=== PATIENT | male | born 1945 | race Caucasian/White ===

== ENCOUNTER 2016-10-03 21:25 | Emergency (ER) | payer MEDICARE, BC ==
[2016-10-03 22:02] VITALS: RESP 18
[2016-10-03] MEDS ORDERED: LIDOCAINE/EPINEPHR/TETRACAINE 5 ML BOTTLE TOPICAL ONE (23:00)
--- NOTE | 2016-10-03 23:02 | ED ---
Recheck HPI - General Chief Complaint: Recheck/Abnormal Lab/Rx Stated Complaint: Bleeding Time Seen by Provider: 10/03/16 22:07 Source: patient, RN notes reviewed Mode of arrival: EMS Limitations: no limitations - History of Present Illness Initial Comments: Patient is a 70-year-old male since emergency room for evaluation of postop bleeding. Patient states that he had basal cell carcinoma removal by Dr. Huffman at 1 PM this afternoon. Patient states she was instructed to not do any strenuous physical activity but he did not listen and used his lawnmower. Patient states that the wound area began to significantly bleed and he could not get it to stop. patient denies any significant pain. Patient states he takes a baby aspirin per day. Patient denies being on any other blood thinners. Patient denies any other symptoms or complaints. - Related Data Home Medications Medication Instructions Recorded Confirmed Albuterol Sulfate [Proair Hfa] 1 - 2 puff INHALATION RT-Q6H PRN 10/03/16 Aspirin [Adult Low Dose Aspirin EC] 81 mg PO DAILY 10/03/16 10/03/16 Atorvastatin [Lipitor] 10 mg PO DAILY 10/03/16 10/03/16 Calcium Carbonate/Vitamin D3 1 tab PO DAILY 10/03/16 10/03/16 [Calcium 600-Vit D3 800 Tab] Doxazosin Mesylate [Cardura] 8 mg PO BID 10/03/16 10/03/16 Empagliflozin [Jardiance] 25 mg PO DAILY 10/03/16 10/03/16 Finasteride [Proscar] 5 mg PO DAILY 10/03/16 10/03/16 Glimepiride [Amaryl] 4 mg PO BID 10/03/16 10/03/16 Montelukast [Singulair] 10 mg PO DAILY 10/03/16 10/03/16 Valsartan/Hydrochlorothiazide 1 each PO DAILY 10/03/16 10/03/16 [Valsartan-Hctz 320-12.5 mg Tab] Vitamin E 400 unit PO DAILY 10/03/16 10/03/16 amLODIPine [Norvasc] 5 mg PO BID 10/03/16 10/03/16 metFORMIN HCL [Metformin HCl] 1,000 mg PO BID 10/03/16 10/03/16 sitaGLIPtin [Januvia] 100 mg PO DAILY 10/03/16 10/03/16 Allergies Allergy/AdvReac Type Severity Reaction Status Date / Time No Known Allergies Allergy Verified 10/03/16 22:15 Review of Systems ROS Statement: Those systems with pertinent positive or pertinent negative responses have been documented in the HPI. ROS Other: All systems not noted in ROS Statement are negative. Past Medical History Past Medical History: Diabetes Mellitus, Hyperlipidemia, Hypertension History of Any Multi-Drug Resistant Organisms: MRSA MDRO Source:: left leg 1961 Additional Past Surgical History / Comment(s): left leg Past Psychological History: Unable to Obtain Smoking Status: Former smoker Past Alcohol Use History: Rare Past Drug Use History: None Reported General Exam - General Exam Comments Initial Comments: sitting in exam room, no distress. Limitations: no limitations General appearance: alert, in no apparent distress Head exam: Present: atraumatic, normocephalic, normal inspection Eye exam: Present: normal appearance ENT exam: Present: normal exam Neck exam: Present: normal inspection Respiratory exam: Present: normal lung sounds bilaterally. Absent: respiratory distress Cardiovascular Exam: Present: regular rate, normal rhythm, normal heart sounds Extremities exam: Present: normal inspection Back exam: Present: normal inspection Neurological exam: Present: alert, oriented X3, CN II-XII intact, normal gait Psychiatric exam: Present: normal affect, normal mood Skin exam: Present: warm, dry, other (5 cm linear incision inferior to the right clavicle. One portion of the incision bleeding.) Course Vital Signs 10/03/16 10/04/16 21:55 00:18 Temperature 98.5 F 97.7 F Pulse Rate 61 89 Respiratory 18 18 Rate Blood Pressure 204/84 144/69 O2 Sat by Pulse 96 97 Oximetry Medical Decision Making - Medical Decision Making Patient is a 70-year-old male since emergency room for evaluation of postop incisional bleeding. Area of bleeding was cauterized with silver nitrate stick. Patient is no longer bleeding. Dressings reapplied. Advised patient to follow-up with Dr. Huffman. Return parameters discussed. Case discussed Dr. Holguin. Disposition Clinical Impression: Postoperative bleeding from incision Disposition: HOME SELF-CARE Condition: Good Instructions: Postoperative Bleeding (ED) Additional Instructions: Refrain from any strenuous physical activity. Please follow-up with Dr. Huffman. If any new symptom arises or symptoms worsen, return to ER as soon as possible. Referrals: Jose Raul Parish MD [Primary Care Provider] - 1-2 days Keya Huffman MD [STAFF PHYSICIAN] - 1-2 days Time of Disposition: 00:09
[2016-10-03] MEDS ORDERED: HYDROcodone/APAP 5-325MG 1 EACH TAB PO STA (23:15)
[2016-10-04 00:19] VITALS: BP 144/69; PULSE 89; TEMP 97.7
== END 2016-10-04 00:19 | disposition home or self-care (01) ==
LOC: EC 21:25
DX: L76.22 Postprocedural hemorrhage of skin and subcutaneous tissue following other procedure (principal); E11.9 Type 2 diabetes mellitus without complications; E78.5 Hyperlipidemia, unspecified; I10 Essential (primary) hypertension; Z87.891 Personal history of nicotine dependence; Z79.82 Long term (current) use of aspirin; Z79.84 Long term (current) use of oral hypoglycemic drugs; Z79.899 Other long term (current) drug therapy; Z87.2 Personal history of diseases of the skin and subcutaneous tissue; Z98.890 Other specified postprocedural states; Y83.8 Other surgical procedures as the cause of abnormal reaction of the patient, or of later complication, without mention of misadventure at the time of the procedure
CPT/HCPCS: 99283

== ENCOUNTER 2017-11-17 06:25 | Inpatient (IN) | payer MEDICARE, BC ==
[2017-11-17] MEDS ORDERED: ASPIRIN 81 MG PO STA (06:33)
--- NOTE | 2017-11-17 06:45 | ED ---
Chest Pain HPI - General Chief Complaint: Chest Pain Stated Complaint: chest pain Time Seen by Provider: 11/17/17 06:33 Source: patient, RN notes reviewed Mode of arrival: ambulatory Limitations: no limitations - History of Present Illness Initial Comments: This is a 72-year-old male presents emergency Department with chief complaint of chest pain or shortness of breath. 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 Patient states his Lasix for 1 week secondary to his symptoms along with monitoring of his lower extremities. He states that there is no current swelling that it seems to help but states that he comes emergency Department today because he had increased urgency breath. Patient does take medications for hypertension, hyperlipidemia diabetes. Patient states she's had no prior heart attacks. Patient denies any recent URI symptoms has had a slight cough which is only minimal associated shortness of breath. Patient denies known fever or chills. - Related Data Home Medications Medication Instructions Recorded Confirmed Albuterol Sulfate [Proair Hfa] 1 - 2 puff INHALATION RT-Q6H PRN 10/03/16 Aspirin [Adult Low Dose Aspirin EC] 81 mg PO DAILY 10/03/16 10/03/16 Atorvastatin [Lipitor] 10 mg PO DAILY 10/03/16 10/03/16 Calcium Carbonate/Vitamin D3 1 tab PO DAILY 10/03/16 10/03/16 [Calcium 600-Vit D3 800 Tab] Doxazosin Mesylate [Cardura] 8 mg PO BID 10/03/16 10/03/16 Empagliflozin [Jardiance] 25 mg PO DAILY 10/03/16 10/03/16 Finasteride [Proscar] 5 mg PO DAILY 10/03/16 10/03/16 Glimepiride [Amaryl] 4 mg PO BID 10/03/16 10/03/16 Montelukast [Singulair] 10 mg PO DAILY 10/03/16 10/03/16 Valsartan/Hydrochlorothiazide 1 each PO DAILY 10/03/16 10/03/16 [Valsartan-Hctz 320-12.5 mg Tab] Vitamin E 400 unit PO DAILY 10/03/16 10/03/16 amLODIPine [Norvasc] 5 mg PO BID 10/03/16 10/03/16 metFORMIN HCL [Metformin HCl] 1,000 mg PO BID 10/03/16 10/03/16 sitaGLIPtin [Januvia] 100 mg PO DAILY 10/03/16 10/03/16 Allergies Allergy/AdvReac Type Severity Reaction Status Date / Time No Known Allergies Allergy Verified 11/17/17 06:32 Review of Systems ROS Statement: Those systems with pertinent positive or pertinent negative responses have been documented in the HPI. ROS Other: All systems not noted in ROS Statement are negative. EKG Findings - EKG Comments: EKG Findings:: EKG performed at 6:37 sinus rhythm with PVC complexes, rate of 68 TN 164 QRS 114 QT/QTC 408/433 Past Medical History Past Medical History: Diabetes Mellitus, Hyperlipidemia, Hypertension History of Any Multi-Drug Resistant Organisms: MRSA MDRO Source:: left leg 1961 Additional Past Surgical History / Comment(s): left leg Past Psychological History: No Psychological Hx Reported Smoking Status: Former smoker Past Alcohol Use History: Rare Past Drug Use History: None Reported General Exam Limitations: no limitations General appearance: alert, in no apparent distress Head exam: Present: atraumatic, normocephalic, normal inspection Neck exam: Present: normal inspection, full ROM. Absent: tenderness, meningismus, lymphadenopathy Respiratory exam: Present: normal lung sounds bilaterally. Absent: respiratory distress, wheezes, rales, rhonchi, stridor Cardiovascular Exam: Present: regular rate, normal rhythm, systolic murmur. Absent: normal heart sounds, diastolic murmur, rubs, gallop, clicks Skin exam: Present: warm, dry, intact, normal color. Absent: rash Course Vital Signs 11/17/17 11/17/17 11/17/17 06:28 06:40 07:35 Temperature 98.4 F Pulse Rate 60 69 58 L Respiratory 18 16 18 Rate Blood Pressure 162/76 152/75 O2 Sat by Pulse 97 95 Oximetry 11/17/17 08:20 Temperature Pulse Rate 59 L Respiratory 16 Rate Blood Pressure 153/92 O2 Sat by Pulse 96 Oximetry Chest Pain MDM - MDM 72-year-old male presented for chest pain shortness of breath. Patient had lab work chest x-ray and CT there is no evidence of PE. Patient's troponin is elevated will be started on heparin patient will admitted to service with consult to cardiology. Disposition Clinical Impression: Chest pain, Elevated troponin, Dyspnea Disposition: ADMITTED IP TO THIS HOSP Condition: Stable Referrals: Jose Raul Parish MD [Primary Care Provider] - 1-2 days
[2017-11-17 07:12] LABS: ALT 72 U/L (21-72); AST 25 U/L (17-59); Albumin 3.7 g/dL (3.5-5.0); Alkaline Phosphatase 111 U/L (38-126); Anion Gap 8 mmol/L; Blood Urea Nitrogen 15 mg/dL (9-20); Calcium 9.4 mg/dL (8.4-10.2); Carbon Dioxide 24 mmol/L (22-30); Chloride 107 mmol/L (98-107); Glucose 252 mg/dL (74-99); Magnesium 1.5 mg/dL (1.6-2.3); Potassium 4.1 mmol/L (3.5-5.1); Sodium 139 mmol/L (137-145); Total Bilirubin 0.9 mg/dL (0.2-1.3); Total Protein 6.1 g/dL (6.3-8.2)
[2017-11-17 07:13] LABS: Basophils % (A) 0 %; Eosinophils # (A) 0.6 k/uL (0-0.7); Eosinophils % (A) 8 %; HCT 41.1 % (39.0-53.0); Lymphocytes # (A) 1.1 k/uL (1.0-4.8); Lymphocytes % (A) 14 %; MCH 30.9 pg (25.0-35.0); MCV 90.9 fL (80.0-100.0); Mean Platelet Volume 8.4; Monocytes # (A) 0.5 k/uL (0-1.0); Monocytes % (A) 7 %; Neutrophils # (A) 5.7 k/uL (1.3-7.7); Neutrophils % (A) 70 %; Platelet Count 152 k/uL (150-450); RBC 4.52 m/uL (4.30-5.90); RDW 13.7 % (11.5-15.5); WBC 8.2 k/uL (3.8-10.6)
[2017-11-17 07:15] LABS: INR 1.1 (<1.2)
[2017-11-17 07:16] LABS: Partial Thromboplastin Time 24.7 sec (22.0-30.0); Prothrombin Time 10.7 sec (9.0-12.0)
--- NOTE | 2017-11-17 07:24 | XR ---
EXAMINATION TYPE: XR chest 2V DATE OF EXAM: 11/17/2017 COMPARISON: None HISTORY: 72-year-old male with chest pain and shortness of breath TECHNIQUE: AP and lateral views FINDINGS: Rightward patient rotation alters the normal cardiac and mediastinal contours. Heart borderline enlar ged. Diffuse interstitial and vascular prominence. Patchy posterior basilar opacity on the lateral vi ew. No significant pleural effusion. IMPRESSION: 1. Rotated exam. 2. Interstitial prominence and borderline heart size. Correlate to exclude mild pulmonary vascular co ngestion. 3. Some patchy posterior basilar atelectasis on the lateral view could represent atelectasis or mild infiltrate.
[2017-11-17 07:38] LABS: D-Dimer 0.79 mg/L FEU (<0.60)
[2017-11-17 08:03] LABS: Creatine Kinase MB 2.5 ng/mL (0.0-2.4); Troponin I 0.051 ng/mL (0.000-0.034)
--- NOTE | 2017-11-17 08:27 | CT ---
CT CHEST FOR PULMONARY EMBOLISM. EXAMINATION TYPE: CT chest angio for PE DATE OF EXAM: 11/17/2017 INDICATION: Chest pain CT DLP: 367.70 mGycm, Automated exposure control for dose reduction was used. CONTRAST: Patient injected with 100 ml mL of Isovue 370. COMPARISON: None TECHNIQUE: CT of the chest is performed on a spiral scan at 2 mm thick sections. Study is performed with intravenous contrast timed for evaluation for pulmonary embolism. This will limit additional po rtions of the evaluation. 3-D MIP images reconstructed by the technologist are reviewed on the compu ter in the coronal and sagittal planes. FINDINGS: No persistent filling defects are evident to suggest an acute pulmonary embolism. No mediastinal or hilar adenopathy enlarged by CT criteria is evident. The ascending aorta diameter at the level of the main pulmonary artery is 3.7 cm. The main pulmonary artery diameter at the bifur cation is 3.3 cm. Some scattered groundglass opacities are within the lung dill. Some minimal pulmonary edema could b e considered. Infectious pneumonitis could be considered. Minimal bilateral pleural effusions are pre sent. Some minimal compressive atelectasis within the dependent portions of the lung bases are presen t. Limited CT section through the upper abdomen are unremarkable. IMPRESSIONS: 1. No acute pulmonary embolism. 2. Minimal bilateral pleural effusions. 3. Minimal groundglass opacities which could reflect pneumonitis from infection or minimal edema.
[2017-11-17] MEDS ORDERED: HEPARIN SODIUM,PORCINE 5,000 UNIT/ML 1 ML VIAL IV ONE (08:34)
[2017-11-17] MEDS ORDERED: NITROGLYCERIN SL TABS 0.4 MG TAB SUBLINGUAL PRN ×2 (08:34→12:19)
[2017-11-17] MEDS: HEPARIN SOD,PORK IN 0.45% NACL 25,000 UNIT in 0.45% NACL 1 500ML.BAG IV SCH (09:01)
[2017-11-17] MEDS: SODIUM CHLORIDE 0.9% 500 ML IV SCH (09:03)
[2017-11-17] MEDS ORDERED: FUROSEMIDE 40 MG TAB PO SCH (10:00)
[2017-11-17 10:08] VITALS: BMI 30.1
--- NOTE | 2017-11-17 11:52 | ECHOF ---
Referral Reason:chest pain MEASUREMENTS -------- HEIGHT: 177.8 cm WEIGHT: 95.3 kg BP: 153/92 RVIDd: 3.3 cm (< 3.3) IVSd: 1.4 cm (0.6 - 1.1) LVIDd: 6.2 cm (3.9 - 5.3) LVPWd: 1.4 cm (0.6 - 1.1) IVSs: 1.8 cm LVIDs: 4.0 cm LVPWs: 2.2 cm LA Diam: 4.4 cm (2.7 - 3.8) LAESV Index (A-L): 31.89 ml/m Ao Diam: 3.2 cm (2.0 - 3.7) AV Cusp: 1.4 cm (1.5 - 2.6) MV EXCURSION: 22.126 mm (> 18.000) MV EF SLOPE: 157 mm/s (70 - 150) EPSS: 1.7 cm MV E Benny: 1.12 m/s MV DecT: 162 ms MV A Benny: 0.56 m/s MV E/A Ratio: 2.00 AV maxP.52 mmHg AV meanP.44 mmHg AR PHT: 539 ms RAP: 5.00 mmHg RVSP: 30.62 mmHg FINDINGS -------- Sinus rhythm. This was a technically adequate study. The left ventricle is mildly dilated. There is moderate concentric left ventricular hypertrophy. Overall left ventricular systolic function is low-normal with, an EF between 50 - 55 %. The right ventricle is mildly enlarged. LA is midly dilated 29-33ml/m2. The right atrium is normal in size. There is moderate to severe aortic valve sclerosis. There is mild aortic regurgitation. There is moderate aortic stenosis present. Peak/mean gradient across the Aortic Valve is 53.52mmHg / 31.44mm Hg. The mitral valve leaflets are mildly thickened. Mild mitral annular calcification present. Mild m itral regurgitation is present. Mild tricuspid regurgitation present. Right ventricular systolic pressure is normal at < 35 mmHg. The pulmonic valve was not well visualized. The aortic root size is normal. Normal inferior vena cava with normal inspiratory collapse consistent with estimated right atrial pre ssure of 5 mmHg. The inferior vena cava is mildly dilated. There is no pericardial effusion. CONCLUSIONS -------- 1. Sinus rhythm. 2. This was a technically adequate study. 3. The left ventricle is mildly dilated. 4. There is moderate concentric left ventricular hypertrophy. 5. Overall left ventricular systolic function is low-normal with, an EF between 50 - 55 %. 6. The right ventricle is mildly enlarged. 7. LA is midly dilated 29-33ml/m2. 8. The right atrium is normal in size. 9. There is moderate to severe aortic valve sclerosis. 10. There is mild aortic regurgitation. 11. There is moderate aortic stenosis present. 12. Peak/mean gradient across the Aortic Valve is 53.52mmHg / 31.44mmHg. 13. The mitral valve leaflets are mildly thickened. 14. Mild mitral annular calcification present. 15. Mild mitral regurgitation is present. 16. Mild tricuspid regurgitation present. 17. Right ventricular systolic pressure is normal at < 35 mmHg. 18. The pulmonic valve was not well visualized. 19. The aortic root size is normal. 20. Normal inferior vena cava with normal inspiratory collapse consistent with estimated right atrial pressure of 5 mmHg. 21. The inferior vena cava is mildly dilated. 22. There is no pericardial effusion. WAREHOUSE RECEIVING SUPERVISOR: Mary Frey RDCS
[2017-11-17 11:54] LABS: Glucose,Whole Blood 156 mg/dL (75-99)
[2017-11-17] MEDS: FAMOTIDINE 20 MG TAB PO SCH (12:00)
[2017-11-17] MEDS: DOXAZOSIN 4 MG TAB PO SCH ×2 (12:00→20:47)
[2017-11-17] MEDS: CARVEDILOL 6.25 MG TAB PO SCH ×2 (12:00→20:44)
[2017-11-17] MEDS: amLODIPine 5 MG TAB PO SCH ×2 (12:00→20:46)
[2017-11-17] MEDS: VALSARTAN 160 MG TAB PO SCH (12:01)
[2017-11-17] MEDS: MONTELUKAST 10 MG TAB PO SCH (12:01)
[2017-11-17] MEDS: GLIMEPIRIDE 4 MG TAB PO SCH ×2 (12:01→20:47)
[2017-11-17] MEDS: HYDROCHLOROTHIAZIDE 12.5 MG CAP PO SCH (12:01)
[2017-11-17] MEDS: INSULIN ASPART 100 UNIT/ML 1 ML 10 ML VIAL SQ SCH ×3 (12:05→21:06)
[2017-11-17] MEDS ORDERED: SODIUM CHLORIDE 0.9% 1,000 ML in EMPTY BAG 1 BAG IV ONE (12:19)
[2017-11-17] MEDS ORDERED: ALPRAZolam 0.25 MG TAB PO PRN (12:19)
[2017-11-17] MEDS ORDERED: ALPRAZolam 0.5 MG TAB PO PRN (12:19)
[2017-11-17] MEDS ORDERED: ATORVASTATIN 80 MG TAB PO STA (12:19)
[2017-11-17] MEDS ORDERED: ASPIRIN 325 MG TAB PO STA (12:19)
--- NOTE | 2017-11-17 12:30 | P.HPIM ---
History of Present Illness H&P Date: 11/17/17 Chief Complaint: Chest pain with dyspnea on exertion This is a 72-year-old male one of my patient with a previous medical history significant for hypertension and hypertensive cardiovascular disease, hyperlipidemia, diabetes mellitus type 2, was recently diagnosed with aortic stenosis, and he was seen in consultation by Dr. Cárdenas and was supposed to go for left heart catheterization for evaluation of the gradient of the aortic valve, patient was seen in my office last week with increased swelling in both lower extremities and with effort angina that has been progressively getting worse over the last few weeks, at that time laboratory evaluation were done his d-dimer was negative as well as troponin and his BNP was elevated, patient was started on Lasix 40 mg Friday and Friday and his swelling got a lot better however he he continues to have significant dyspnea on exertion as well as effort angina with activity even minimal activities so he came to the emergency department at [facility] today after he woke up in the morning with increased chest pain going to the bathroom his EKG showed normal sinus rhythm with nonspecific T-wave changes, cardiac enzymes are negative however because of the presentation he was started on heparin drip, he was maintained on carvedilol as well as losartan and Lasix and he was admitted to the hospital for left heart catheterization for further evaluation of his coronary anatomy as well as the gradient across the aortic valve, patient had an echocardiogram that showed ejection fraction of 50-55% with moderate aortic stenosis and severe aortic sclerosis with mild aortic regurgitation. Review of Systems Constitutional: Reports fatigue, Reports weakness, Denies chronic headaches Eyes: denies blurred vision, denies bulging eye, denies decreased vision, denies diplopia Ears: bilateral: decreased hearing Ears, nose, mouth and throat: Denies dysphagia, Denies neck lump, Denies sore throat, Denies vertigo Cardiovascular: Reports chest pain, Reports decreased exercise tolerance, Reports dyspnea on exertion, Reports shortness of breath, Denies lightheadedness , Denies rapid heart beat, Denies syncope Respiratory: Denies congestion, Denies cough, Denies cough with sputum, Denies hemoptysis, Denies home oxygen, Denies sleep apnea, Denies snoring, Denies wheezing Gastrointestinal: Denies abdominal pain, Denies BRBPR, Denies heartburn, Denies melena, Denies nausea, Denies vomiting Genitourinary: Reports nocturia, Denies discharge, Denies dysuria Musculoskeletal: Denies atrophy, Denies fractures, Denies low back pain, Denies neck stiffness, Denies redness of joints Musculoskeletal: absent: ankle pain, ankle stiffness, ankle swelling, elbow pain , elbow stiffness, elbow swelling, foot pain, foot stiffness, foot swelling, hand pain, hand stiffness, hand swelling, hip pain, hip stiffness, hip swelling , knee pain, knee stiffness, knee swelling, shoulder pain, shoulder stiffness, shoulder swelling, wrist pain, wrist stiffness, wrist swelling Integumentary: Denies pruritus, Denies rash Neurological: Denies numbness, Denies weakness Psychiatric: Denies anxiety, Denies depression Endocrine: Denies fatigue, Denies weight change Past Medical History Past Medical History: Asthma, Diabetes Mellitus, Hyperlipidemia, Hypertension, Musculoskeletal Disorder, Osteoarthritis (OA), Prostate Disorder History of Any Multi-Drug Resistant Organisms: MRSA MDRO Source:: left leg 1961 Additional Past Surgical History / Comment(s): left leg, right breast tumor Past Psychological History: No Psychological Hx Reported Smoking Status: Former smoker (Patient used to smoke about a pack every day since was 16 and he quit 25 years ago.) Past Alcohol Use History: Rare Past Drug Use History: None Reported - Past Family History Mother Family Medical History: Cancer (Mother at age 70 from congestive heart failure and she had a history of melanoma as well as renal cancer.), Congestive Heart Failure (CHF) Father Family Medical History: Cancer (Father at age of 90 from old age and he had a history of melanoma.) Sister(s) Family Medical History: AFIB (Patient has 3 sisters one of them with obesity and atrial fibrillation.) Brother(s) Family Medical History: No Reported History (Patient has a younger brother no major medical problems except hypertension.) Daughter(s) Family Medical History: No Reported History (Patient has one daughter with anxiety and os arthritis.) Son(s) Family Medical History: No Reported History (Patient had one son who from motor vehicle accident.) Medications and Allergies Home Medications Medication Instructions Recorded Confirmed Type Aspirin [Adult Low Dose Aspirin EC] 81 mg PO HS 10/03/16 11/17/17 History Atorvastatin [Lipitor] 10 mg PO DAILY 10/03/16 11/17/17 History Calcium Carbonate/Vitamin D3 1 tab PO HS 10/03/16 11/17/17 History [Calcium 600-Vit D3 800 Tab] Doxazosin Mesylate [Cardura] 8 mg PO BID 10/03/16 11/17/17 History Finasteride [Proscar] 5 mg PO HS 10/03/16 11/17/17 History Glimepiride [Amaryl] 4 mg PO BID 10/03/16 11/17/17 History Montelukast [Singulair] 10 mg PO DAILY 10/03/16 11/17/17 History Valsartan/Hydrochlorothiazide 1 tab PO DAILY 10/03/16 11/17/17 History [Valsartan-Hctz 320-12.5 mg Tab] Vitamin E 400 unit PO HS 10/03/16 11/17/17 History amLODIPine [Norvasc] 5 mg PO BID 10/03/16 11/17/17 History metFORMIN HCL [Metformin HCl] 1,000 mg PO BID 10/03/16 11/17/17 History Carvedilol [Coreg] 6.25 mg PO BID 11/17/17 11/17/17 History Fexofenadine/Pseudoephedrine 1 tab PO BID PRN 11/17/17 11/17/17 History [Lyudmila-D 12 Hour Tablet] Furosemide [Lasix] 40 mg PO MOWEFR 11/17/17 11/17/17 History Mometasone/Formoterol [Dulera 100 2 puff INHALATION RT-BID PRN 11/17/17 History Mcg/5 Mcg Inhaler] Allergies Allergy/AdvReac Type Severity Reaction Status Date / Time No Known Allergies Allergy Verified 11/17/17 08:41 Physical Exam Vitals: Vital Signs Temp Pulse Resp BP Pulse Ox 11/17/17 09:11 97.8 F 55 L 18 162/81 96 11/17/17 08:20 59 L 16 153/92 96 11/17/17 07:35 58 L 18 152/75 95 11/17/17 06:40 69 16 11/17/17 06:28 98.4 F 60 18 162/76 97 Intake and Output 11/16/17 11/17/17 11/17/17 22:59 06:59 14:59 Other: Weight 95.254 kg - Constitutional General appearance: average body habitus, mild distress - EENT Eyes: anicteric sclerae, EOMI, PERRLA, no ptosis, no scleral icterus, normal appearance ENT: NA/AT, normal oropharynx, no thrush, no tonsillar exudates Ears: bilateral: normal - Neck Neck: no lymphadenopathy, normal ROM, no rigidity, no stridor, no thyromegaly Carotids: bilateral: upstroke delayed Thyroid: bilateral: normal size - Respiratory Respiratory: bilateral: diminished, negative: dullness, rales, rhonchi, wheezing , prolonged expiration - Cardiovascular Rhythm: regular Heart sounds: normal: S1, S2 Abnormal Heart Sounds: systolic murmur (Systolic ejection murmur 3/6 located in the right upper sternal border radiating to the neck), no S3 Gallop - Gastrointestinal General gastrointestinal: normal bowel sounds, soft, no splenomegaly, no tenderness, no umbilical hernia, no ventral hernia - Genitourinary Male genitourinary: enlarged prostate - Integumentary Integumentary: normal, normal turgor - Neurologic Neurologic: CNII-XII intact - Musculoskeletal Musculoskeletal: gait normal, generalized weakness - Psychiatric Psychiatric: A&O x's 3, appropriate affect, intact judgment & insight Results CBC & Chem 7: 11/17/17 06:48 11/17/17 06:48 Labs: Abnormal Lab Results - Last 24 Hours (Table) 11/17/17 11/17/17 11/17/17 Range/Units 06:48 06:48 06:48 D-Dimer 0.79 H (<0.60) mg/L FEU Glucose 252 H (74-99) mg/dL Magnesium 1.5 L (1.6-2.3) mg/dL CK-MB (CK-2) 2.5 H* (0.0-2.4) ng/mL Troponin I 0.051 H* (0.000-0.034) ng/mL Total Protein 6.1 L (6.3-8.2) g/dL Thrombosis Risk Factor Assmnt - DVT/VTE Prophylaxis DVT/VTE Prophylaxis: Pharmacologic Prophylaxis ordered, Mechanical Prophylaxis ordered Assessment and Plan Assessment: Assessment and plan: 1. Effort angina with dyspnea on exertion is related to aortic valve stenosis with possible CAD. Heparin drip, aspirin 325 mg orally once every day, nitroglycerin paste 1 inch every 8 hours, continue Coreg 6.25 mg orally twice every day, monitor cardiac enzymes 3 every 8 hours, cardiology consultation, for left heart catheterization tomorrow morning. 2. Diabetes mellitus type 2. Discontinue patient metformin continue with consistent carbohydrate diet, continue patient on glimepiride 4 mg orally twice every day, BGM before each meal and bedtime. 3. Hypertension and hypertensive cardiovascular disease. Continue losartan 100 /12.5 mg orally once every day, Coreg 6.25 mg orally twice every day and amlodipine 10 mg orally once every day. 4. Chronic diastolic heart failure. Continue Lasix 40 mg Friday and Friday, Coreg 6.25 mg orally twice every day and losartan 100/12.5 mg orally once every day. 5. Hyperlipidemia. Continue with Lipitor. 6. Enlarged prostate continue patient on Doxazosin 8 mg orally twice every day and finasteride 5 mg orally once every day 7. ALLERGIC rhinitis/asthma. Continue Singulair 10 mg at bedtime as well as Ventolin inhaler. 8. Osteoarthritis. Clinically stable. 9. DVT prophylaxis. Continue heparin drip. 10. GI prophylaxis. Continue patient on PPI. 11. Admit to inpatient. Estimated length of stay 2 midnights.
[2017-11-17 13:04] LABS: Creatine Kinase MB 2.1 ng/mL (0.0-2.4)
[2017-11-17 13:07] LABS: Troponin I 0.039 ng/mL (0.000-0.034)
--- NOTE | 2017-11-17 13:17 | CONS ---
CONSULTATION Mr. Pereira is a 72-year-old male with known history of diabetes, hypertension, hyperlipidemia, and known history of aortic valve disease who for the last 3 weeks has been complaining of progressive symptoms of dyspnea, exertional, increasing in intensity with some chest tightness. He was seen by Dr. Parish and diuretics were added to his regimen, but he started to complain of worsening symptoms and came into the emergency room subsequently admitted. The patient had moderate aortic stenosis with a mean gradient of 35 mmHg and a peak of 58 mmHg with preserved systolic function. He has no prior history of obstructive lung disease or congestive heart failure. His coronary risk factors are remarkable for hypertension, hyperlipidemia, and diabetes mellitus. MEDICATION: His medications at home included metformin, amlodipine 5 mg twice a day, valsartan HCTZ 320/12.5 mg daily, Singulair 10 mg daily, Amaryl 4 mg twice a day, Lasix 40 mg daily, Proscar 5 mg daily, doxazosin, Coreg 6.25 mg twice a day, Lipitor 10 mg daily and aspirin once a day. REVIEW OF SYSTEMS: RESPIRATORY SYSTEM: He has dyspnea on exertion and cough. No wheezing. GI SYSTEM: No recent GI bleed. No peptic ulcer disease. SYSTEM: No dysuria or hematuria. NERVOUS SYSTEM: No stroke or seizure. PHYSICAL EXAMINATION: A 72-year-old male, alert, oriented, in no apparent distress. Blood pressure running in the 150s to 160s with the heart rate in the 50s. HEAD: Normocephalic. EYES: Sclerae anicteric. NECK: Good carotid upstroke with transmitted murmur. LUNGS: Clear to auscultation. HEART: Regular rate and rhythm, S1, S2 with systolic ejection murmur 3/6 mid to late peaking. No diastolic murmur. No rub. ABDOMEN: Soft, nontender. Positive bowel sounds. No organomegaly. EXTREMITIES: No edema. LAB DATA: BUN and creatinine 15 and 0.88. Troponin 0.051. NT proBNP of 1117. Hemoglobin of 14. Chest x-ray shows mild congestion. EKG reveals sinus mechanism with normal axis and intervals, left ventricular hypertrophy and rare PVCs. CT angiogram of the chest revealed no evidence of pulmonary embolism with small bilateral pleural effusion. IMPRESSION: 1. Progressive symptoms of dyspnea and chest discomfort with minimal elevation of troponin, could be consistent with non ST-segment elevation myocardial infarction. 2. At least, moderate aortic stenosis. 3. Hypertension. 4. Hyperlipidemia. 5. Diabetes mellitus. RECOMMENDATION: We will continue on the present medical regimen. I have recommended proceeding with coronary angiography to assess his status and guide his treatment. I will review the results of his echocardiogram and depending on the results of testing, further recommendation will be made. Thank you for this consult. We will follow with you. MELBA / PATRICK: [id number] /
[2017-11-17 16:48] LABS: Glucose,Whole Blood 255 mg/dL (75-99)
[2017-11-17 20:09] LABS: Creatine Kinase MB 1.5 ng/mL (0.0-2.4); Troponin I 0.032 ng/mL (0.000-0.034)
[2017-11-17] MEDS: SYMBICORT 80-4.5 MCG INHALER INHALATION PRN (20:34)
[2017-11-17] MEDS: ASPIRIN 81 MG PO SCH (20:46)
[2017-11-17] MEDS: FINASTERIDE 5 MG TAB PO SCH (20:47)
[2017-11-17] MEDS: ATORVASTATIN 40 MG TAB PO SCH (20:47)
[2017-11-17] MEDS ORDERED: ATORVASTATIN 10 MG TAB PO SCH (21:00)
[2017-11-17 21:05] LABS: Glucose,Whole Blood 177 mg/dL (75-99)
[2017-11-18] MEDS: HEPARIN SOD,PORK IN 0.45% NACL 25,000 UNIT in 0.45% NACL 1 500ML.BAG IV SCH (02:22)
[2017-11-18 05:16] LABS: Appearance,Urine Clear (Clear); Bilirubin,Urine Negative (Negative); Blood,Urine Negative (Negative); Color,Urine Light Yellow; Glucose,Urine (UA) Negative (Negative); Ketones,Urine Negative (Negative); Leukocyte Esterase,Urine Negative (Negative); Nitrite,Urine Negative (Negative); Protein,Urine Negative (Negative); Urobilinogen,Urine <2.0 mg/dL (<2.0)
[2017-11-18 06:06] LABS: Glucose,Whole Blood 170 mg/dL (75-99)
[2017-11-18] MEDS: FAMOTIDINE 20 MG TAB PO SCH (06:45)
[2017-11-18] MEDS: CARVEDILOL 6.25 MG TAB PO SCH ×2 (06:45→21:17)
[2017-11-18] MEDS: amLODIPine 5 MG TAB PO SCH ×2 (06:45→21:17)
[2017-11-18] MEDS: DOXAZOSIN 4 MG TAB PO SCH ×2 (06:45→21:17)
[2017-11-18] MEDS: HYDROCHLOROTHIAZIDE 12.5 MG CAP PO SCH (06:46)
[2017-11-18] MEDS: MONTELUKAST 10 MG TAB PO SCH (06:46)
[2017-11-18] MEDS: VALSARTAN 160 MG TAB PO SCH (06:47)
[2017-11-18 07:41] LABS: Basophils # (A) 0.1 k/uL (0-0.2); Basophils % (A) 1 %; Eosinophils # (A) 0.7 k/uL (0-0.7); Eosinophils % (A) 10 %; HCT 39.3 % (39.0-53.0); HGB 13.3 gm/dL (13.0-17.5); Lymphocytes # (A) 1.3 k/uL (1.0-4.8); Lymphocytes % (A) 19 %; MCH 31.2 pg (25.0-35.0); MCHC 33.9 g/dL (31.0-37.0); MCV 92.1 fL (80.0-100.0); Monocytes # (A) 0.5 k/uL (0-1.0); Monocytes % (A) 7 %; Neutrophils # (A) 4.1 k/uL (1.3-7.7); Neutrophils % (A) 60 %; Platelet Count 144 k/uL (150-450); RBC 4.26 m/uL (4.30-5.90); RDW 13.7 % (11.5-15.5); WBC 6.8 k/uL (3.8-10.6)
[2017-11-18 08:06] LABS: ALT 63 U/L (21-72); AST 22 U/L (17-59); Albumin 3.5 g/dL (3.5-5.0); Alkaline Phosphatase 101 U/L (38-126); Anion Gap 7 mmol/L; Blood Urea Nitrogen 16 mg/dL (9-20); Carbon Dioxide 24 mmol/L (22-30); Chloride 108 mmol/L (98-107); Cholesterol 130 mg/dL (<200); Glucose 149 mg/dL (74-99); HDL Cholesterol 39 mg/dL (40-60); LDL Cholesterol,Calculated 58 mg/dL (0-99); Potassium 4.2 mmol/L (3.5-5.1); Sodium 139 mmol/L (137-145); Total Bilirubin 0.6 mg/dL (0.2-1.3); Total Protein 5.8 g/dL (6.3-8.2); Triglycerides 163 mg/dL (<150)
[2017-11-18] MEDS ORDERED: ASPIRIN 325 MG TAB PO STA (08:10)
[2017-11-18] MEDS: SYMBICORT 80-4.5 MCG INHALER INHALATION PRN (08:40)
[2017-11-18] MEDS ORDERED: ASPIRIN 325 MG TAB PO SCH (09:00)
[2017-11-18] MEDS ORDERED: diphenhydrAMINE 50 MG/ML 1 ML VIAL IVP ONE ×2 (10:40→10:44)
[2017-11-18] MEDS ORDERED: fentaNYL (PF) 50 MCG/ML 2 ML AMP IVP ONE ×2 (10:40→10:43)
[2017-11-18] MEDS: INSULIN ASPART 100 UNIT/ML 1 ML 10 ML VIAL SQ SCH ×4 (10:41→21:29)
[2017-11-18] MEDS: SODIUM CHLORIDE 0.9% 500 ML IV SCH (10:41)
[2017-11-18] MEDS ORDERED: LIDOCAINE 1% INJ 10MG/ML (20 ML MDV) SQ ONE ×2 (10:42→10:45)
[2017-11-18] MEDS ORDERED: VERAPAMIL SYRINGE (5 MG/10 ML) IVP ONE (10:42)
[2017-11-18] MEDS ORDERED: IOPAMIDOL-370 125ML BTL INJ ONE (11:29)
[2017-11-18 11:31] LABS: O2 Sat Blood Gas 67.2 %
[2017-11-18] MEDS ORDERED: RX INFO: IV CONTRAST WAS GIVEN 1 EACH MISC MISCELLANE PRN (11:31)
[2017-11-18] MEDS ORDERED: IV FLUID CONTINUATION 1,000 ML IV ONE (11:32)
[2017-11-18 11:33] LABS: O2 Sat Blood Gas 64.3 %
[2017-11-18 11:35] LABS: O2 Sat Blood Gas 94.4 %
[2017-11-18] MEDS ORDERED: SODIUM CHLORIDE 0.9% 1,000 ML IV SCH (11:45)
[2017-11-18] MEDS: GLIMEPIRIDE 4 MG TAB PO SCH ×2 (12:24→21:17)
[2017-11-18 12:26] LABS: Glucose,Whole Blood 142 mg/dL (75-99)
--- NOTE | 2017-11-18 13:26 | CC ---
CARDIAC CATHETERIZATION REPORT Mr. Pereira is a 72-year-old male with a known history of hypertension, hyperlipidemia, diabetes mellitus who has a history of aortic stenosis of moderate degree. He has been asymptomatic until recently when he started to complain of dyspnea on exertion and chest discomfort. He came into the emergency room with signs of heart failure and mild elevation of the troponin. In view of that, recommendation was made regarding cardiac catheterization. The procedure as well as the risks and complications were discussed with the patient who is in full understanding and agreement. PROCEDURE: Patient was brought to the collaborative physician in a fasting semi-sedated state after receiving fentanyl Benadryl and achieving moderate conscious sedated state. Using Xylocaine anesthesia in the Seldinger technique, a 6[place] sheath was introduced in the right radial artery. Using a micropuncture catheter the IV catheter in the right brachial was exchanged with a 6-[place] sheath. Following that, right heart catheterization was performed using [place] catheter multiple pressure and samples were obtained cardiac output by thermodilution was calculated. Following that a selective right and left coronary angiography performed using 5-[place] 3.5 bend right and left Gerald catheter. Multiple views of the coronary artery including hemiaxial views were obtained. Attempts to cross the aortic valve were unsuccessful. Subsequently, a 6-[place]izen [place] tight pigtail catheter was introduced in the ascending aorta and MIHIR view of the ascending aorta was performed. Following that, catheter and sheaths were removed. Hemostasis was obtained with deployment of a TR band and compression of the right brachial area. The patient received 5000 units of intravenous heparin and intra-arterial verapamil. There was no immediate complication. FINDINGS: HEMODYNAMICS: Pulmonary artery systolic pressure of 50, diastolic of 20 with a mean of 30 mmHg. Pulmonary capillary wedge pressure A-wave of 30, V-wave of 30 with a mean cough of 24 mmHg. Right ventricle systolic pressure of 50 with an end-diastolic of 12. Right atrium A-wave of 14, V-wave of 15 with a mean of 10 mmHg. Pulmonary artery saturation of 64%. Right atrial saturation of 67%. Arterial saturation 94%. Cardiac output by thermodilution of 5.6 L/minute. FLUOROSCOPY: There is calcification involving the aortic valve as well as the coronary arteries. LEFT MAIN: This is a large-sized vessel bifurcating in left circumflex and left anterior descending artery. Left main coronary artery has no evidence of high- grade stenosis. LEFT ANTERIOR DESCENDING ARTERY: This is a large-sized vessel reaching toward the apex with a wraparound apex segment giving rise to 2 diagonal branches. The left anterior descending artery as well as branches have no evidence of high-grade stenosis. LEFT CIRCUMFLEX: This is a codominant vessel giving rise to a distal obtuse marginal branch and a PDA that has no evidence of high-grade stenosis. RCA. This is a codominant vessel moderate in caliber bifurcating distally PDA and posterolateral segment and branches. The right coronary artery in the proximal and mid segment has a 30% to 40% plaque without any evidence of high-grade stenosis. AORTOGRAM: Aortogram was performed in the MIHIR view and revealed a tricuspid aortic valve with normal appearance of the ascending aorta and 2+ aortic regurgitation. CONCLUSION: 1. Calcified coronary arteries. 2. 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 3. Normal appearance of the ascending aorta with 2+ aortic regurgitation. RECOMMENDATION: In view of finding in the anatomy, I recommend proceeding with transesophageal echocardiogram to evaluate the aortic valve and guide the treatment. Those findings and recommendation were discussed with the patient and his family and they are in full understanding and agreement. DURATION PROCEDURE: 46 minutes. MMODL / IJN: [id number] / ANICETO
[2017-11-18 16:20] LABS: Glucose,Whole Blood 353 mg/dL (75-99)
[2017-11-18 21:08] LABS: Glucose,Whole Blood 214 mg/dL (75-99)
[2017-11-18] MEDS: ATORVASTATIN 40 MG TAB PO SCH (21:17)
[2017-11-18] MEDS: ASPIRIN 81 MG PO SCH (21:17)
[2017-11-18] MEDS: FINASTERIDE 5 MG TAB PO SCH (21:17)
[2017-11-19 06:12] LABS: Glucose,Whole Blood 160 mg/dL (75-99)
[2017-11-19] MEDS: INSULIN ASPART 100 UNIT/ML 1 ML 10 ML VIAL SQ SCH ×4 (06:32→21:28)
[2017-11-19 06:43] LABS: Mean Platelet Volume 7.7; Platelet Count 191 k/uL (150-450)
[2017-11-19 07:13] LABS: Anion Gap 7 mmol/L; Blood Urea Nitrogen 15 mg/dL (9-20); Calcium 9.2 mg/dL (8.4-10.2); Carbon Dioxide 26 mmol/L (22-30); Chloride 107 mmol/L (98-107); Glucose 147 mg/dL (74-99); Potassium 4.4 mmol/L (3.5-5.1); Sodium 140 mmol/L (137-145)
[2017-11-19] MEDS ORDERED: MIDAZOLAM 2 MG/2 ML VIAL ONE (08:15)
[2017-11-19] MEDS ORDERED: fentaNYL (PF) 50 MCG/ML 2 ML AMP ONE (08:15)
--- NOTE | 2017-11-19 08:29 | P.PN ---
Subjective Progress Note Date: 11/18/17 This is a 72-year-old male one of my patient with a previous medical history significant for hypertension and hypertensive cardiovascular disease, hyperlipidemia, diabetes mellitus type 2, was recently diagnosed with aortic stenosis, and he was seen in consultation by Dr. Cárdenas and was supposed to go for left heart catheterization for evaluation of the gradient of the aortic valve, patient was seen in my office last week with increased swelling in both lower extremities and with effort angina that has been progressively getting worse over the last few weeks, at that time laboratory evaluation were done his d-dimer was negative as well as troponin and his BNP was elevated, patient was started on Lasix 40 mg Friday and Friday and his swelling got a lot better however he he continues to have significant dyspnea on exertion as well as effort angina with activity even minimal activities so he came to the emergency department at [facility] today after he woke up in the morning with increased chest pain going to the bathroom his EKG showed normal sinus rhythm with nonspecific T-wave changes, cardiac enzymes are negative however because of the presentation he was started on heparin drip, he was maintained on carvedilol as well as losartan and Lasix and he was admitted to the hospital for left heart catheterization for further evaluation of his coronary anatomy as well as the gradient across the aortic valve, patient had an echocardiogram that showed ejection fraction of 50-55% with moderate aortic stenosis and severe aortic sclerosis with mild aortic regurgitation. 11/18: Echocardiogram reveals EF of 50-55% with moderate concentric left ventricular hypertrophy, L a mildly dilated 20 9033, left ventricle is mildly dilated, moderate to severe aortic valve sclerosis, mild aortic regurgitation, moderate aortic stenosis, mild mitral regurgitation, mild tricuspid regurgitation Catheterization that showed calcified coronary arteries, moderate disease in the right coronary artery, normal appearance of the ascending aorta with 2+ aortic regurgitation. Plan is for REESE. Objective - Vital Signs Vital signs: Vital Signs Temp 97.2 F L 11/18/17 08:28 Pulse 54 L 11/18/17 08:28 Resp 18 11/18/17 08:28 BP 140/70 11/18/17 08:28 Pulse Ox 95 11/18/17 08:28 Intake & Output 11/17/17 11/18/17 11/18/17 18:59 06:59 18:59 Intake Total 438.667 950.778 Balance 438.667 950.778 Weight 95.254 kg 94.3 kg Intake: IV 160 Heparin Sod,Pork in 0.45% 160 NaCl 25,000 unit In 0.45 % NaCl 1 500ml.bag @ 10.5 UNITS/KG/HR 20 mls/hr IV .Q24H [facility] Rx#:[id number] Intake, IV Titration 198.667 790.778 Amount Heparin Sod,Pork in 0.45% 198.667 190.778 NaCl 25,000 unit In 0.45 % NaCl 1 500ml.bag @ 10.5 UNITS/KG/HR 20 mls/hr IV .Q24H [facility] Rx#:[id number] Sodium Chloride 0.9% 500 600 ml @ 20 mls/hr IV .Q24H [facility] Rx#:[id number] Oral 240 Other: Voiding Method Toilet Toilet # Voids 2 1 # Bowel Movements 0 0 - Exam General appearance: average body habitus, mild distress - EENT Eyes: anicteric sclerae, EOMI, PERRLA, no ptosis, no scleral icterus, normal appearance ENT: NA/AT, normal oropharynx, no thrush, no tonsillar exudates Ears: bilateral: normal - Neck Neck: no lymphadenopathy, normal ROM, no rigidity, no stridor, no thyromegaly Carotids: bilateral: upstroke delayed Thyroid: bilateral: normal size - Respiratory Respiratory: bilateral: diminished, negative: dullness, rales, rhonchi, wheezing , prolonged expiration - Cardiovascular Rhythm: regular Heart sounds: normal: S1, S2 Abnormal Heart Sounds: systolic murmur (Systolic ejection murmur 3/6 located in the right upper sternal border radiating to the neck), no S3 Gallop - Gastrointestinal General gastrointestinal: normal bowel sounds, soft, no splenomegaly, no tenderness, no umbilical hernia, no ventral hernia - Genitourinary Male genitourinary: enlarged prostate - Integumentary Integumentary: normal, normal turgor - Neurologic Neurologic: CNII-XII intact - Musculoskeletal Musculoskeletal: gait normal, generalized weakness - Psychiatric Psychiatric: A&O x's 3, appropriate affect, intact judgment & insight - Labs CBC & Chem 7: 11/19/17 06:16 11/19/17 06:16 Labs: Abnormal Lab Results - Last 24 Hours (Table) 11/17/17 11/17/17 11/17/17 Range/Units 06:48 11:52 12:21 RBC (4.30-5.90) m/uL Plt Count (150-450) k/uL APTT (22.0-30.0) sec Chloride (98-107) mmol/L Glucose (74-99) mg/dL POC Glucose (mg/dL) 156 H (75-99) mg/dL Hemoglobin A1c 7.0 H (4.0-6.0) % Troponin I 0.039 H* (0.000-0.034) ng/mL Total Protein (6.3-8.2) g/dL Triglycerides (<150) mg/dL HDL Cholesterol (40-60) mg/dL 11/17/17 11/17/17 11/17/17 Range/Units 16:28 16:47 21:04 RBC (4.30-5.90) m/uL Plt Count (150-450) k/uL APTT 31.5 H (22.0-30.0) sec Chloride (98-107) mmol/L Glucose (74-99) mg/dL POC Glucose (mg/dL) 255 H 177 H (75-99) mg/dL Hemoglobin A1c (4.0-6.0) % Troponin I (0.000-0.034) ng/mL Total Protein (6.3-8.2) g/dL Triglycerides (<150) mg/dL HDL Cholesterol (40-60) mg/dL 11/18/17 11/18/17 11/18/17 Range/Units 01:16 06:04 06:24 RBC 4.26 L (4.30-5.90) m/uL Plt Count 144 L (150-450) k/uL APTT 38.0 H (22.0-30.0) sec Chloride (98-107) mmol/L Glucose (74-99) mg/dL POC Glucose (mg/dL) 170 H (75-99) mg/dL Hemoglobin A1c (4.0-6.0) % Troponin I (0.000-0.034) ng/mL Total Protein (6.3-8.2) g/dL Triglycerides (<150) mg/dL HDL Cholesterol (40-60) mg/dL 11/18/17 11/18/17 Range/Units 06:24 06:24 RBC (4.30-5.90) m/uL Plt Count (150-450) k/uL APTT 52.6 H (22.0-30.0) sec Chloride 108 H (98-107) mmol/L Glucose 149 H (74-99) mg/dL POC Glucose (mg/dL) (75-99) mg/dL Hemoglobin A1c (4.0-6.0) % Troponin I (0.000-0.034) ng/mL Total Protein 5.8 L (6.3-8.2) g/dL Triglycerides 163 H (<150) mg/dL HDL Cholesterol 39 L (40-60) mg/dL Assessment and Plan Plan: 1. Effort angina with dyspnea on exertion is related to aortic valve stenosis with possible CAD. Continue aspirin 81 mg orally once every day, Coreg 6.25 mg orally twice every day area and cardiology consult appreciated. Heart catheterization as above. REESE scheduled for tomorrow 2. Diabetes mellitus type 2. Discontinue patient metformin continue with consistent carbohydrate diet, continue patient on glimepiride 4 mg orally twice every day, BGM before each meal and bedtime. 3. Hypertension and hypertensive cardiovascular disease. Continue losartan 100 /12.5 mg orally once every day, Coreg 6.25 mg orally twice every day and amlodipine 10 mg orally once every day. 4. Chronic diastolic heart failure. Continue Lasix 40 mg Friday and Friday, Coreg 6.25 mg orally twice every day and losartan 100/12.5 mg orally once every day. 5. Hyperlipidemia. Continue with Lipitor. 6. Enlarged prostate continue patient on Doxazosin 8 mg orally twice every day and finasteride 5 mg orally once every day 7. ALLERGIC rhinitis/asthma. Continue Singulair 10 mg at bedtime as well as Ventolin inhaler. 8. Osteoarthritis. Clinically stable. 9. DVT prophylaxis. Continue heparin drip. 10. GI prophylaxis. Continue patient on PPI. Discharge plan: Return home Impression and plan of care have been directed as dictated by the signing physician. Maria G Paez nurse practitioner acting as scribe for signing physician.
[2017-11-19] MEDS ORDERED: SODIUM CHLORIDE 0.9% 500 ML IV ONE (08:36)
[2017-11-19] MEDS: BENZOCAINE SPRAY 1 CAN MUCOUS MEM ONE ×2 (08:36→08:39)
[2017-11-19] MEDS ORDERED: MIDAZOLAM 2 MG/2 ML VIAL IVP ONE (08:38)
[2017-11-19] MEDS ORDERED: fentaNYL (PF) 50 MCG/ML 2 ML AMP IV ONE (08:39)
[2017-11-19] MEDS: SYMBICORT 80-4.5 MCG INHALER INHALATION PRN ×2 (09:18→19:14)
--- NOTE | 2017-11-19 09:44 | PN ---
PROGRESS NOTE DATE OF SERVICE: 11/19/2017. HISTORY: Mr. Pereira is a 72-year-old male who presented with symptoms of dyspnea, [id number] elevation myocardial infarction, and symptoms of congestive heart failure. He underwent cardiac catheterization that revealed no evidence of significant obstructive disease. He continues to have some dyspnea on exertion but no chest pain. No dizziness. No palpitation. He continues to be, at this time, on amlodipine 5 mg twice a day, aspirin 81 mg daily, Lipitor 40 mg daily, Coreg 6.5 mg twice a day, glyburide 4 mg twice a day, HydroDIURIL 12.5 mg daily and Diovan 320 mg daily. PHYSICAL EXAMINATION: Blood pressure 160/70 with a heart in the 60s. LUNGS: Clear. HEART: Regular rate and rhythm. S1, S2. No S3 with systolic murmur 3/6 mid to late peaking. No diastolic murmur. ABDOMEN: Soft nontender. EXTREMITIES: No edema. Right radial pulse intact. LAB DATA: Lab data revealed BUN and creatinine of 15 and 0.92, potassium 4.4. IMPRESSION: 1. Symptoms of congestive heart failure was [id number] elevation myocardial infarction with symptoms of congestive heart failure with mild elevation in troponin and chest discomfort with no significant obstructive coronary artery disease. 2. Evidence to suggest at least moderate aortic stenosis. 3. Hypertension. 4. Hyperlipidemia. RECOMMENDATIONS: I would recommend to proceed with a transesophageal echocardiogram to evaluate his aortic valve and if he has severe aortic stenosis, then I would recommend proceeding with aortic valve replacement. In the meantime, his antihypertensive regimen will be adjusted to optimize his treatment. Those findings and recommendation were discussed with the patient who is in full understanding and agreement. MMODL / IJN: [id number] /
--- NOTE | 2017-11-19 09:50 | ECHOT ---
TRANSESOPHAGEAL ECHOCARDIOGRAM INDICATION: Evaluation of aortic valve. PROCEDURE: After explaining the procedure to the patient as well as risks and the complications, his blood pressure, O2 saturation and heart rate was monitored. His throat was sprayed with Cetacaine. He received 2 mg intravenous Versed, 50 mcg intravenous fentanyl. The probe was introduced into the esophagus without difficulty. Images were obtained. Following that, the probe was removed. There was no immediate complication. FINDINGS: Left atrial size is mildly dilated. Left atrial appendage is normal. Left ventricular size and systolic function are normal. The mitral valve appears to be normal. The tricuspid valve is normal. The aortic valve is a tricuspid valve with severe calcification, reduced opening. By planimetry the valve area is between 0.7 and 0.8 centimeters square. Descending thoracic aorta appears to be normal. Contrast bubble study revealed no shunting across the interatrial septum. Doppler pulse wave and color Doppler obtained and revealed a mild aortic with mild to moderate mitral and mild tricuspid regurgitation. There was no shunting across the interatrial septum. The peak gradient across the aortic valve was 78 mmHg with a mean of 43 mmHg consistent with severe aortic stenosis. CONCLUSION: 1. Dilated left atrium with normal appearance left atrial appendage. 2. Normal left ventricular size and systolic function. 3. Severe aortic stenosis with tricuspid valve and a mild aortic regurgitation. 4. Mild to moderate mitral regurgitation. 5. Mild tricuspid regurgitation with no evidence pulmonary hypertension. 6. No evidence of shunting across the interatrial septum. MMODL / IJN: [id number] /
[2017-11-19] MEDS: CARVEDILOL 6.25 MG TAB PO SCH ×2 (10:18→21:27)
[2017-11-19] MEDS: amLODIPine 5 MG TAB PO SCH ×2 (10:18→21:27)
[2017-11-19] MEDS: DOXAZOSIN 4 MG TAB PO SCH ×2 (10:18→21:28)
[2017-11-19] MEDS: FAMOTIDINE 20 MG TAB PO SCH (10:19)
[2017-11-19] MEDS: HYDROCHLOROTHIAZIDE 12.5 MG CAP PO SCH (10:19)
[2017-11-19] MEDS: GLIMEPIRIDE 4 MG TAB PO SCH ×2 (10:19→21:27)
[2017-11-19] MEDS: MONTELUKAST 10 MG TAB PO SCH (10:20)
[2017-11-19] MEDS: VALSARTAN 160 MG TAB PO SCH (10:20)
[2017-11-19] MEDS: hydrALAZINE HCL 25 MG TAB PO SCH ×2 (10:27→21:27)
[2017-11-19] MEDS: SODIUM CHLORIDE 0.9% 500 ML IV SCH (10:29)
[2017-11-19 11:23] LABS: Glucose,Whole Blood 142 mg/dL (75-99)
[2017-11-19 11:49] LABS: INR 1.1 (<1.2); Partial Thromboplastin Time 25.3 sec (22.0-30.0); Prothrombin Time 10.6 sec (9.0-12.0)
--- NOTE | 2017-11-19 12:14 | P.PN ---
Subjective Progress Note Date: 11/19/17 This is a 72-year-old male one of my patient with a previous medical history significant for hypertension and hypertensive cardiovascular disease, hyperlipidemia, diabetes mellitus type 2, was recently diagnosed with aortic stenosis, and he was seen in consultation by Dr. Cárdenas and was supposed to go for left heart catheterization for evaluation of the gradient of the aortic valve, patient was seen in my office last week with increased swelling in both lower extremities and with effort angina that has been progressively getting worse over the last few weeks, at that time laboratory evaluation were done his d-dimer was negative as well as troponin and his BNP was elevated, patient was started on Lasix 40 mg Friday and Friday and his swelling got a lot better however he he continues to have significant dyspnea on exertion as well as effort angina with activity even minimal activities so he came to the emergency department at [facility] today after he woke up in the morning with increased chest pain going to the bathroom his EKG showed normal sinus rhythm with nonspecific T-wave changes, cardiac enzymes are negative however because of the presentation he was started on heparin drip, he was maintained on carvedilol as well as losartan and Lasix and he was admitted to the hospital for left heart catheterization for further evaluation of his coronary anatomy as well as the gradient across the aortic valve, patient had an echocardiogram that showed ejection fraction of 50-55% with moderate aortic stenosis and severe aortic sclerosis with mild aortic regurgitation. 11/18: Echocardiogram reveals EF of 50-55% with moderate concentric left ventricular hypertrophy, L a mildly dilated 20 9033, left ventricle is mildly dilated, moderate to severe aortic valve sclerosis, mild aortic regurgitation, moderate aortic stenosis, mild mitral regurgitation, mild tricuspid regurgitation Catheterization that showed calcified coronary arteries, moderate disease in the right coronary artery, normal appearance of the ascending aorta with 2+ aortic regurgitation. Plan is for REESE. 11/19: Patient underwent REESE revealed dilated left atrium with normal left atrial appendage, normal left ventricle size and systolic function, severe aortic stenosis with mild tri-cuspid valve and mild aortic regurgitation, moderate mitral regurgitation, mild tricuspid regurgitation with no pulmonary hypertension. No shunting across the interatrial septum. Recommendations were for cardiothoracic surgery evaluation. Objective - Vital Signs Vital signs: Vital Signs Temp 98.4 F 11/19/17 05:50 Pulse 60 11/19/17 05:50 Resp 18 11/19/17 05:50 BP 133/76 11/19/17 05:50 Pulse Ox 95 11/19/17 05:50 Intake & Output 11/18/17 11/19/17 11/19/17 18:59 06:59 18:59 Intake Total 465 400 Output Total 575 Balance -110 400 Weight 94 kg Intake: IV 100 Intake, IV Titration 400 Amount Sodium Chloride 0.9% 1, 400 000 ml @ 100 mls/hr IV . Q10H [facility] Rx#:[id number] Oral 365 Output: Urine 575 Other: Voiding Method Toilet Toilet # Voids 1 1 # Bowel Movements 0 - Exam General appearance: average body habitus, mild distress - EENT Eyes: anicteric sclerae, EOMI, PERRLA, no ptosis, no scleral icterus, normal appearance ENT: NA/AT, normal oropharynx, no thrush, no tonsillar exudates Ears: bilateral: normal - Neck Neck: no lymphadenopathy, normal ROM, no rigidity, no stridor, no thyromegaly Carotids: bilateral: upstroke delayed Thyroid: bilateral: normal size - Respiratory Respiratory: bilateral: diminished, negative: dullness, rales, rhonchi, wheezing , prolonged expiration - Cardiovascular Rhythm: regular Heart sounds: normal: S1, S2 Abnormal Heart Sounds: systolic murmur (Systolic ejection murmur 3/6 located in the right upper sternal border radiating to the neck), no S3 Gallop - Gastrointestinal General gastrointestinal: normal bowel sounds, soft, no splenomegaly, no tenderness, no umbilical hernia, no ventral hernia - Genitourinary Male genitourinary: enlarged prostate - Integumentary Integumentary: normal, normal turgor - Neurologic Neurologic: CNII-XII intact - Musculoskeletal Musculoskeletal: gait normal, generalized weakness - Psychiatric Psychiatric: A&O x's 3, appropriate affect, intact judgment & insight - Labs CBC & Chem 7: 11/19/17 06:16 11/19/17 06:16 Labs: Abnormal Lab Results - Last 24 Hours (Table) 11/18/17 11/18/17 11/18/17 Range/Units 12:24 16:19 21:07 POC Glucose (mg/dL) 142 H 353 H 214 H (75-99) mg/dL Glucose (74-99) mg/dL 11/19/17 11/19/17 Range/Units 06:09 06:16 POC Glucose (mg/dL) 160 H (75-99) mg/dL Glucose 147 H (74-99) mg/dL Assessment and Plan Plan: 1. Non-ST elevated myocardial infarction and chronic diastolic heart failure presenting secondary to severe aortic stenosis.. Continue aspirin 81 mg orally once every day, Coreg 6.25 mg orally twice every day area and cardiology consult appreciated. Heart catheterization as above. REESE as above. Cardiothoracic surgery evaluation 2. Diabetes mellitus type 2. Discontinue patient metformin continue with consistent carbohydrate diet, continue patient on glimepiride 4 mg orally twice every day, BGM before each meal and bedtime. 3. Hypertension and hypertensive cardiovascular disease. Continue losartan 100 /12.5 mg orally once every day, Coreg 6.25 mg orally twice every day and amlodipine 10 mg orally once every day. 4. Chronic diastolic heart failure. Continue Lasix 40 mg Friday and Friday, Coreg 6.25 mg orally twice every day and losartan 100/12.5 mg orally once every day. 5. Hyperlipidemia. Continue with Lipitor. 6. Enlarged prostate continue patient on Doxazosin 8 mg orally twice every day and finasteride 5 mg orally once every day 7. ALLERGIC rhinitis/asthma. Continue Singulair 10 mg at bedtime as well as Ventolin inhaler. 8. Osteoarthritis. Clinically stable. 9. DVT prophylaxis. Continue heparin drip. 10. GI prophylaxis. Continue patient on PPI. Discharge plan: Return home Impression and plan of care have been directed as dictated by the signing physician. Maria G Paez nurse practitioner acting as scribe for signing physician.
--- NOTE | 2017-11-19 15:45 | US ---
EXAMINATION TYPE: US carotid duplex BILAT DATE OF EXAM: 11/19/2017 COMPARISON: NONE CLINICAL HISTORY: preop cardiac surgery. EXAM MEASUREMENTS: RIGHT: Peak Systolic Velocity (PSV) cm/sec ----- Right CCA: 111.7 ----- Right ICA: 115.7 ----- Right ECA: 148.9 ICA/CCA ratio: 1.0 RIGHT: End Diastole cm/sec ----- Right CCA: 18.2 ----- Right ICA: 13.9 ----- Right ECA: 5.1 LEFT: Peak Systolic Velocity (PSV) cm/sec ----- Left CCA: 84.2 ----- Left ICA: 100.4 ----- Left ECA: 97.8 ICA/CCA ratio: 1.2 LEFT: End Diastole cm/sec ----- Left CCA: 10.6 ----- Left ICA: 12.4 ----- Left ECA: 0.0 VERTEBRALS (direction of flow): Right Vertebral: Antegrade Left Vertebral: Antegrade Rhythm: Arrhythmia Soft and calcified plaque bilaterally. No significant stenosis noted. IMPRESSION: 1. Bilateral atherosclerotic changes with no significant hemodynamic stenosis. Arrhythmia
--- NOTE | 2017-11-19 16:22 | P.GSCN ---
History of Present Illness Consult date: 11/19/17 Reason for Consult: Aortic stenosis, surgical recommendations. Requesting physician: Cheri Cárdenas History of present illness: This is a 72-year-old patient follows with Dr. Parish on an outpatient basis. He has a previous medical history of aortic stenosis, hypertension, hyperlipidemia, diabetes mellitus, family history of heart disease, and previous tobacco dependence. He has had had aortic stenosis for some time but has recently become symptomatic with chest pressure, shortness of breath, and 2 episodes of syncope. He was prescribed diuretics by his primary care physician and was recommended to see Dr. Cárdenas from cardiology. His symptoms have worsened over the last couple weeks and he presented to the emergency room [facility] with complaints of chest tightness and shortness of breath. He is slightly elevation in his cardiac troponins and was ruled in for non- STEMI. He underwent heart catheterization yesterday which demonstrated 30-40% disease in the right coronary artery and no other significant coronary disease. Transesophageal echocardiogram completed this morning demonstrated a tricuspid aortic valve with severe calcification, area 0.7-0.8 cm by planimetry demonstrating severe aortic stenosis, mild aortic insufficiency, mild to moderate mitral regurgitation, and mild right cuspid regurgitation. Dr. Lopez from cardiothoracic surgery was consulted for surgical recommendations. Review of Systems Review of systems was completed and was negative except as noted. - Constitutional Reports fatigue - Cardiovascular Reports chest pain, Reports decreased exercise tolerance, Reports dyspnea on exertion, Reports shortness of breath - Respiratory Reports cough - Neurological Reports syncope Past Medical History Past Medical History: Asthma, Diabetes Mellitus, Hyperlipidemia, Hypertension, Musculoskeletal Disorder, Osteoarthritis (OA), Prostate Disorder Additional Past Medical History / Comment(s): SKIN C.A. REMOVED History of Any Multi-Drug Resistant Organisms: MRSA MDRO Source:: left leg 1961 Additional Past Surgical History / Comment(s): left leg, right breast tumor Past Anesthesia/Blood Transfusion Reactions: No Reported Reaction Past Psychological History: No Psychological Hx Reported Smoking Status: Former smoker (Patient used to smoke about a pack every day since was 16 and he quit 25 years ago.) Past Alcohol Use History: Occasional, Rare Past Drug Use History: None Reported - Past Family History Mother Family Medical History: Cancer (Mother at age 70 from congestive heart failure and she had a history of melanoma as well as renal cancer.), Congestive Heart Failure (CHF) Father Family Medical History: Cancer (Father at age of 90 from old age and he had a history of melanoma.) Sister(s) Family Medical History: AFIB (Patient has 3 sisters one of them with obesity and atrial fibrillation.) Brother(s) Family Medical History: No Reported History (Patient has a younger brother no major medical problems except hypertension.) Daughter(s) Family Medical History: No Reported History (Patient has one daughter with anxiety and os arthritis.) Son(s) Family Medical History: No Reported History (Patient had one son who from motor vehicle accident.) Medications and Allergies Home Medications Medication Instructions Recorded Confirmed Type Aspirin [Adult Low Dose Aspirin EC] 81 mg PO HS 10/03/16 11/17/17 History Atorvastatin [Lipitor] 10 mg PO DAILY 10/03/16 11/17/17 History Calcium Carbonate/Vitamin D3 1 tab PO HS 10/03/16 11/17/17 History [Calcium 600-Vit D3 800 Tab] Doxazosin Mesylate [Cardura] 8 mg PO BID 10/03/16 11/17/17 History Finasteride [Proscar] 5 mg PO HS 10/03/16 11/17/17 History Glimepiride [Amaryl] 4 mg PO BID 10/03/16 11/17/17 History Montelukast [Singulair] 10 mg PO DAILY 10/03/16 11/17/17 History Valsartan/Hydrochlorothiazide 1 tab PO DAILY 10/03/16 11/17/17 History [Valsartan-Hctz 320-12.5 mg Tab] Vitamin E 400 unit PO HS 10/03/16 11/17/17 History amLODIPine [Norvasc] 5 mg PO BID 10/03/16 11/17/17 History metFORMIN HCL [Metformin HCl] 1,000 mg PO BID 10/03/16 11/17/17 History Carvedilol [Coreg] 6.25 mg PO BID 11/17/17 11/17/17 History Fexofenadine/Pseudoephedrine 1 tab PO BID PRN 11/17/17 11/17/17 History [Lyudmila-D 12 Hour Tablet] Furosemide [Lasix] 40 mg PO MOWEFR 11/17/17 11/17/17 History Mometasone/Formoterol [Dulera 100 2 puff INHALATION RT-BID PRN 11/17/17 History Mcg/5 Mcg Inhaler] Allergies Allergy/AdvReac Type Severity Reaction Status Date / Time No Known Allergies Allergy Verified 11/17/17 08:41 Surgical - Exam Vital Signs Temp Pulse Resp BP Pulse Ox 98.4 F 60 18 162/76 97 11/17/17 06:28 11/17/17 06:28 11/17/17 06:28 11/17/17 06:28 11/17/17 06:28 - General well developed, well nourished, no distress, no pain - Eyes PERRL, normal ocular movement - ENT no hearing loss, dentures - Neck no masses, no bruits, trachea midline - Respiratory Lungs sounds clear bilaterally. Respirations even, nonlabored. Currently on 2 L nasal cannula with oxygen saturation 96%. Effective cough. No chest wall deformities. - Cardiovascular S1, S2 present, positive systolic murmur. Regular rate and rhythm. Sinus rhythm on telemetry. Palpable peripheral pulses bilaterally. No edema present. No calf pain or tenderness noted. Positive varicosities present. - Abdomen Abdomen: soft, non tender, bowel sounds - Genitourinary Deferred - Rectum Deferred - Integumentary no rash, no growths - Neurologic normal coordination, normal sensation - Musculoskeletal normal gait, normal posture - Psychiatric oriented to time, oriented to person, oriented to place, speech is normal, memory intact Results - Labs 11/19/17 06:16 11/19/17 06:16 Abnormal Lab Results - Last 24 Hours (Table) 11/18/17 11/18/17 11/19/17 Range/Units 16:19 21:07 06:09 Glucose (74-99) mg/dL POC Glucose (mg/dL) 353 H 214 H 160 H (75-99) mg/dL 11/19/17 11/19/17 Range/Units 06:16 11:22 Glucose 147 H (74-99) mg/dL POC Glucose (mg/dL) 142 H (75-99) mg/dL Microbiology - Last 24 Hours (Table) 11/19/17 12:00 Nasal Screen MRSA/MSSA - Preliminary Nasal Swab Diabetes panel 11/19/17 Range/Units 06:16 Sodium 140 (137-145) mmol/L Potassium 4.4 (3.5-5.1) mmol/L Chloride 107 (98-107) mmol/L Carbon Dioxide 26 (22-30) mmol/L BUN 15 (9-20) mg/dL Creatinine 0.92 (0.66-1.25) mg/dL Glucose 147 H (74-99) mg/dL Calcium 9.2 (8.4-10.2) mg/dL Thyroid panel 11/19/17 Range/Units 06:16 TSH 1.710 (0.465-4.680) mIU/L Calcium panel 11/19/17 Range/Units 06:16 Calcium 9.2 (8.4-10.2) mg/dL Pituitary panel 11/19/17 11/19/17 Range/Units 06:16 06:16 Sodium 140 (137-145) mmol/L Potassium 4.4 (3.5-5.1) mmol/L Chloride 107 (98-107) mmol/L Carbon Dioxide 26 (22-30) mmol/L BUN 15 (9-20) mg/dL Creatinine 0.92 (0.66-1.25) mg/dL Glucose 147 H (74-99) mg/dL Calcium 9.2 (8.4-10.2) mg/dL TSH 1.710 (0.465-4.680) mIU/L Adrenal panel 11/19/17 Range/Units 06:16 Sodium 140 (137-145) mmol/L Potassium 4.4 (3.5-5.1) mmol/L Chloride 107 (98-107) mmol/L Carbon Dioxide 26 (22-30) mmol/L BUN 15 (9-20) mg/dL Creatinine 0.92 (0.66-1.25) mg/dL Glucose 147 H (74-99) mg/dL Calcium 9.2 (8.4-10.2) mg/dL - Imaging Chest x-ray: report reviewed, image reviewed Additional studies: Heart catheterization and transesophageal echocardiogram films reviewed. Assessment and Plan (1) Non-STEMI (non-ST elevated myocardial infarction) Current Visit: Yes Status: Acute Code(s): I21.4 - NON-ST ELEVATION (NSTEMI) MYOCARDIAL INFARCTION SNOMED Code(s): 748017348 (2) Diabetes mellitus Current Visit: Yes Status: Chronic Code(s): E11.9 - TYPE 2 DIABETES MELLITUS WITHOUT COMPLICATIONS SNOMED Code(s): 00985984 (3) Hypertension Current Visit: Yes Status: Chronic Code(s): I10 - ESSENTIAL (PRIMARY) HYPERTENSION SNOMED Code(s): 11589608 (4) Hyperlipidemia Current Visit: Yes Status: Chronic Code(s): E78.5 - HYPERLIPIDEMIA, UNSPECIFIED SNOMED Code(s): 76582227 (5) Tobacco dependence in remission Current Visit: No Status: Resolved Code(s): F17.201 - NICOTINE DEPENDENCE, UNSPECIFIED, IN REMISSION SNOMED Code(s): 945092896 (6) Family history of heart disease Current Visit: Yes Status: Chronic Code(s): Z82.49 - FAMILY HX OF ISCHEM HEART DIS AND OTH DIS OF THE CIRC SYS SNOMED Code(s): 987944108 (7) Severe aortic stenosis Current Visit: Yes Status: Chronic Code(s): I35.0 - NONRHEUMATIC AORTIC ( VALVE) STENOSIS SNOMED Code(s): 31629320 Plan: The patient was seen and examined at the bedside. Chart/diagnostics were reviewed. Preoperative teaching initiated. Preoperative testing initiated. Dr. Lopez recommended surgery, all risks and benefits were explained in detail , and the patient and family were agreeable to surgery. Patient will need dental clearance prior to surgery and this was discussed with the patient and his . Our plan is for aortic valve replacement with exclusion of the left atrial appendage on 12/04/2017 pending outcome of preoperative testing and patient obtaining dental clearance. At this time we would recommend continuing aspirin, statin, beta erasto. Pulmonology consult placed for recommendations regarding bronchodilators and surgical risk. More recommendations to follow. Thank you Dr. Cárdenas for this consult. We look to working with you in the care of your patient. Time with Patient: Greater than 30
[2017-11-19 16:41] LABS: Hepatitis A Antibody IgM Non-Reactive (Non-Reactive); Hepatitis B Core IgM Non-Reactive (Non-Reactive)
[2017-11-19 17:06] LABS: Glucose,Whole Blood 280 mg/dL (75-99)
[2017-11-19 19:30] LABS: Appearance,Urine Clear (Clear); Bilirubin,Urine Negative (Negative); Blood,Urine Negative (Negative); Color,Urine Yellow; Glucose,Urine (UA) 1+ (Negative); Ketones,Urine Negative (Negative); Leukocyte Esterase,Urine Trace (Negative); Nitrite,Urine Negative (Negative); PH, Urine 5.5 (5.0-8.0); Protein,Urine Negative (Negative); Specific Gravity,Urine 1.014 (1.001-1.035); Squamous Epithelial Cell,Urine <1 /hpf (0-4); Urobilinogen,Urine <2.0 mg/dL (<2.0); WBC,Urine 1 /hpf (0-5)
[2017-11-19] MEDS ORDERED: ACETAMINOPHEN TAB 325 MG TAB PO PRN (20:27)
[2017-11-19] MEDS ORDERED: SODIUM CHLORIDE 0.65% NASAL SPRAY 44 ML BTL NASAL PRN (20:27)
[2017-11-19 20:49] LABS: Glucose,Whole Blood 293 mg/dL (75-99)
[2017-11-19] MEDS: ATORVASTATIN 40 MG TAB PO SCH (21:27)
[2017-11-19] MEDS: ASPIRIN 81 MG PO SCH (21:27)
[2017-11-19] MEDS: FINASTERIDE 5 MG TAB PO SCH (21:28)
[2017-11-20 06:14] LABS: Glucose,Whole Blood 131 mg/dL (75-99)
[2017-11-20 06:24] LABS: Mean Platelet Volume 7.4; Platelet Count 157 k/uL (150-450)
[2017-11-20] MEDS: INSULIN ASPART 100 UNIT/ML 1 ML 10 ML VIAL SQ SCH ×2 (06:31→11:51)
[2017-11-20 06:59] LABS: Anion Gap 7 mmol/L; Blood Urea Nitrogen 15 mg/dL (9-20); Calcium 9.1 mg/dL (8.4-10.2); Carbon Dioxide 24 mmol/L (22-30); Chloride 108 mmol/L (98-107); Glucose 146 mg/dL (74-99); Potassium 4.2 mmol/L (3.5-5.1); Sodium 139 mmol/L (137-145)
[2017-11-20] MEDS: SYMBICORT 80-4.5 MCG INHALER INHALATION PRN (07:16)
[2017-11-20] MEDS: HYDROCHLOROTHIAZIDE 12.5 MG CAP PO SCH (08:20)
[2017-11-20] MEDS: MONTELUKAST 10 MG TAB PO SCH (08:20)
[2017-11-20] MEDS: hydrALAZINE HCL 25 MG TAB PO SCH (08:20)
[2017-11-20] MEDS: GLIMEPIRIDE 4 MG TAB PO SCH (08:20)
[2017-11-20] MEDS: VALSARTAN 160 MG TAB PO SCH (08:20)
[2017-11-20] MEDS: CARVEDILOL 6.25 MG TAB PO SCH (08:21)
[2017-11-20] MEDS: DOXAZOSIN 4 MG TAB PO SCH (08:21)
[2017-11-20] MEDS: FAMOTIDINE 20 MG TAB PO SCH (08:21)
[2017-11-20] MEDS: amLODIPine 5 MG TAB PO SCH (08:21)
[2017-11-20] MEDS: SODIUM CHLORIDE 0.9% 500 ML IV SCH (08:21)
[2017-11-20] MEDS ORDERED: FLUTICASONE 50MCG/SPRAY NASAL 16GM EA NOSTRIL SCH (09:00)
[2017-11-20] MEDS ORDERED: PIOGLITAZONE 15 MG TAB PO STA (10:35)
[2017-11-20 11:26] VITALS: BP 125/75; PULSE 55; RESP 18; TEMP 97.8
--- NOTE | 2017-11-20 12:24 | PN ---
PROGRESS NOTE Mr. Pereira is a 72-year-old male who presented with symptoms of chest discomfort and dyspnea, was noted to have severe aortic stenosis with mild to moderate coronary artery disease. He is doing well this morning. His breathing is stable. He is denying any chest pain. No dizziness. No palpitation. He denies any nausea. He continues to be at this time on amlodipine 5 mg twice a day, aspirin once a day, Lipitor 40 mg daily, Coreg 6.25 mg twice a day, hydralazine 25 mg twice a day, hydrochlorothiazide 12.5 mg daily, Actos and Diovan 320 mg daily. PHYSICAL EXAMINATION: Blood pressure 125/70 with the heart rate in 50s. LUNGS: Clear. HEART: Regular rate and rhythm. S1, S2. No S3 with systolic murmur heard at the base, ejection type. No diastolic murmur. No rub. ABDOMEN: Soft, nontender. EXTREMITIES: No edema. IMPRESSION: 1. Severe aortic stenosis, symptomatic. 2. Mild to moderate coronary artery disease. 3. Hypertension. 4. Hyperlipidemia. 5. Diabetes mellitus. RECOMMENDATION: Patient will be discharged home today to be followed as an outpatient to undergo elective aortic valve replacement. In the meantime, I have encouraged him to avoid heavy physical activity. MMODL / IJN: [id number] /
--- NOTE | 2017-11-20 15:09 | P.CNPUL ---
History of Present Illness Consult date: 11/20/17 Reason for consult: other Chief complaint: Anticipated aortic valve replacement History of present illness: Pulmonary consult dated 11/20/2017 This is a 72-year-old male masses see preop evaluation for aortic valve replacement. The patient apparently presented with chest pain and shortness of breath on exertion. The patient does have a history of essential hypertension as well as hypertensive cardiovascular disease hyperlipidemia type 2 diabetes and a history of aortic stenosis diagnosed by one of the cardiologists. More recently, the patient has increased lower extremity edema. For that reason he was evaluated and he is apparently been placed on the schedule for aortic valve replacement on December 04 I believe. The patient was evaluated on this admission by cardiology. Please see her notes. The patient did have a bedside spirometry here in the hospital. His lung function were more than adequate. FEV1 was greater than 2 L. He did smoke remotely maybe 30 or so years ago. He smoked for a total of about 22 years about a pack a day. Really denies any respiratory issues. Does not use any inhalers or puffers. This has been chronic sinus drainage. His past medical history is positive for diabetes hyperlipidemia hypertension DJD and a previous history of MRSA infection. He specifically denies any lung conditions including asthma chronic bronchitis emphysema or recurrent pneumonias. Review of Systems A 12 point review of system is positive for shortness of breath orthopnea lower extremity edema chest congestion and fatigue. Past Medical History Past Medical History: Asthma, Diabetes Mellitus, Hyperlipidemia, Hypertension, Musculoskeletal Disorder, Osteoarthritis (OA), Prostate Disorder Additional Past Medical History / Comment(s): SKIN C.A. REMOVED History of Any Multi-Drug Resistant Organisms: MRSA MDRO Source:: left leg 1961 Additional Past Surgical History / Comment(s): left leg, right breast tumor Past Anesthesia/Blood Transfusion Reactions: No Reported Reaction Past Psychological History: No Psychological Hx Reported Smoking Status: Former smoker (Patient used to smoke about a pack every day since was 16 and he quit 25 years ago.) Past Alcohol Use History: Occasional, Rare Past Drug Use History: None Reported - Past Family History Mother Family Medical History: Cancer (Mother at age 70 from congestive heart failure and she had a history of melanoma as well as renal cancer.), Congestive Heart Failure (CHF) Father Family Medical History: Cancer (Father at age of 90 from old age and he had a history of melanoma.) Sister(s) Family Medical History: AFIB (Patient has 3 sisters one of them with obesity and atrial fibrillation.) Brother(s) Family Medical History: No Reported History (Patient has a younger brother no major medical problems except hypertension.) Daughter(s) Family Medical History: No Reported History (Patient has one daughter with anxiety and os arthritis.) Son(s) Family Medical History: No Reported History (Patient had one son who from motor vehicle accident.) Medications and Allergies Home Medications Medication Instructions Recorded Confirmed Type Aspirin [Adult Low Dose Aspirin EC] 81 mg PO HS 10/03/16 11/17/17 History Calcium Carbonate/Vitamin D3 1 tab PO HS 10/03/16 11/17/17 History [Calcium 600-Vit D3 800 Tab] Doxazosin Mesylate [Cardura] 8 mg PO BID 10/03/16 11/17/17 History Finasteride [Proscar] 5 mg PO HS 10/03/16 11/17/17 History Glimepiride [Amaryl] 4 mg PO BID 10/03/16 11/17/17 History Montelukast [Singulair] 10 mg PO DAILY 10/03/16 11/17/17 History Valsartan/Hydrochlorothiazide 1 tab PO DAILY 10/03/16 11/17/17 History [Valsartan-Hctz 320-12.5 mg Tab] Vitamin E 400 unit PO HS 10/03/16 11/17/17 History amLODIPine [Norvasc] 5 mg PO BID 10/03/16 11/17/17 History metFORMIN HCL [Metformin HCl] 1,000 mg PO BID 10/03/16 11/17/17 History Carvedilol [Coreg] 6.25 mg PO BID 11/17/17 11/17/17 History Furosemide [Lasix] 40 mg PO MOWEFR 11/17/17 11/17/17 History Mometasone/Formoterol [Dulera 100 2 puff INHALATION RT-BID PRN 11/17/17 History Mcg/5 Mcg Inhaler] Atorvastatin [Lipitor] 40 mg PO HS #30 tab 11/20/17 Rx Pioglitazone [Actos] 15 mg PO DAILY #30 tab 11/20/17 Rx hydrALAZINE HCL [Apresoline] 25 mg PO BID #60 tab 11/20/17 Rx Allergies Allergy/AdvReac Type Severity Reaction Status Date / Time No Known Allergies Allergy Verified 11/17/17 08:41 Physical Exam Osteopathic Statement: *. No significant issues noted on an osteopathic structural exam other than those noted in the History and Physical/Consult. Vitals: Vital Signs Temp Pulse Resp BP BP BP Pulse Ox 11/20/17 11:25 97.8 F 55 L 18 125/75 98 11/20/17 07:47 58 L 20 11/20/17 07:46 98.0 F 56 L 18 139/79 97 11/19/17 20:00 98.1 F 66 18 143/74 94 L 11/19/17 15:08 63 18 148/78 96 Intake and Output 11/19/17 11/20/17 11/20/17 22:59 06:59 14:59 Intake Total 380 720 Output Total 300 Balance 380 420 Intake: Intake, IV Titration 240 Amount Sodium Chloride 0.9% 500 240 ml @ 20 mls/hr IV .Q24H [facility] Rx#:[id number] Oral 380 480 Output: Urine 300 Other: Voiding Method Toilet Toilet # Voids 2 1 # Bowel Movements 0 Weight 93.9 kg No acute distress, oriented 3. Not requiring any supplemental oxygen. HEENT examination is grossly unremarkable. Mucous membranes are moist. No oral lesions. Neck supple. Full range of motion. No adenopathy thyromegaly or neck vein distention. Cardiovascular examination reveals regular rhythm and rate. S1-S2 normal. No S3 or S4. A Grade 3/6 systolic murmur is noted. Lungs reveal clear breath sounds. Her sounds are equal bilaterally. No adventitious lung sounds including wheezes rhonchi or crackles. Abdomen soft bowel sounds are heard. No masses or tenderness. Extremities are intact. No cyanosis clubbing or edema. Skin is without rash or lesion. Neurologic examination is brief but nonfocal. Results - Laboratory Findings CBC and BMP: 11/20/17 05:48 11/20/17 05:48 PT/INR, D-dimer PT 10.6 sec (9.0-12.0) 11/19/17 06:16 INR 1.1 (<1.2) 11/19/17 06:16 D-Dimer 0.79 mg/L FEU (<0.60) H 11/17/17 06:48 Abnormal lab findings: Abnormal Labs 11/17/17 11/17/17 11/17/17 06:48 06:48 06:48 RBC Plt Count APTT D-Dimer 0.79 H Chloride Glucose 252 H POC Glucose (mg/dL) Hemoglobin A1c Magnesium 1.5 L CK-MB (CK-2) 2.5 H* Troponin I 0.051 H* Total Protein 6.1 L Triglycerides HDL Cholesterol Urine Glucose (UA) Ur Leukocyte Esterase 11/17/17 11/17/17 11/17/17 06:48 11:52 12:21 RBC Plt Count APTT D-Dimer Chloride Glucose POC Glucose (mg/dL) 156 H Hemoglobin A1c 7.0 H Magnesium CK-MB (CK-2) Troponin I 0.039 H* Total Protein Triglycerides HDL Cholesterol Urine Glucose (UA) Ur Leukocyte Esterase 11/17/17 11/17/17 11/17/17 16:28 16:47 21:04 RBC Plt Count APTT 31.5 H D-Dimer Chloride Glucose POC Glucose (mg/dL) 255 H 177 H Hemoglobin A1c Magnesium CK-MB (CK-2) Troponin I Total Protein Triglycerides HDL Cholesterol Urine Glucose (UA) Ur Leukocyte Esterase 11/18/17 11/18/17 11/18/17 01:16 06:04 06:24 RBC 4.26 L Plt Count 144 L APTT 38.0 H D-Dimer Chloride Glucose POC Glucose (mg/dL) 170 H Hemoglobin A1c Magnesium CK-MB (CK-2) Troponin I Total Protein Triglycerides HDL Cholesterol Urine Glucose (UA) Ur Leukocyte Esterase 11/18/17 11/18/17 11/18/17 06:24 06:24 12:24 RBC Plt Count APTT 52.6 H D-Dimer Chloride 108 H Glucose 149 H POC Glucose (mg/dL) 142 H Hemoglobin A1c Magnesium CK-MB (CK-2) Troponin I Total Protein 5.8 L Triglycerides 163 H HDL Cholesterol 39 L Urine Glucose (UA) Ur Leukocyte Esterase 11/18/17 11/18/17 11/19/17 16:19 21:07 06:09 RBC Plt Count APTT D-Dimer Chloride Glucose POC Glucose (mg/dL) 353 H 214 H 160 H Hemoglobin A1c Magnesium CK-MB (CK-2) Troponin I Total Protein Triglycerides HDL Cholesterol Urine Glucose (UA) Ur Leukocyte Esterase 11/19/17 11/19/17 11/19/17 06:16 11:22 16:49 RBC Plt Count APTT D-Dimer Chloride Glucose 147 H POC Glucose (mg/dL) 142 H 280 H Hemoglobin A1c Magnesium CK-MB (CK-2) Troponin I Total Protein Triglycerides HDL Cholesterol Urine Glucose (UA) Ur Leukocyte Esterase 11/19/17 11/19/17 11/20/17 18:41 20:48 05:48 RBC Plt Count APTT D-Dimer Chloride 108 H Glucose 146 H POC Glucose (mg/dL) 293 H Hemoglobin A1c Magnesium CK-MB (CK-2) Troponin I Total Protein Triglycerides HDL Cholesterol Urine Glucose (UA) 1+ H Ur Leukocyte Esterase Trace H 11/20/17 06:12 RBC Plt Count APTT D-Dimer Chloride Glucose POC Glucose (mg/dL) 131 H Hemoglobin A1c Magnesium CK-MB (CK-2) Troponin I Total Protein Triglycerides HDL Cholesterol Urine Glucose (UA) Ur Leukocyte Esterase - Diagnostic Findings Chest x-ray: report reviewed (Chest x-ray labs and medications as well as computed tomography scan is reviewed.), image reviewed CT scan - chest: report reviewed, image reviewed Assessment and Plan Assessment: Assessment Shortness of breath secondary to aortic valve disease as well as diastolic CHF History of aortic stenosis with anticipated aortic valve replacement on December 04. Minimal obstructive lung disease secondary to remote tobacco history but with excellent lung function at this time History of hyperlipidemia History of hypertension History of type 2 diabetes Benign prostatic hypertrophy. ALLERGIC rhinitis Vague history of asthma Osteoarthritis Plan: Plan dated 11/20/2017 The patient's lung function were reviewed. It appears that he has only minimal lung disease. He did smoke remotely. He also has a vague history of asthma which doesn't seem to give her much difficulty. When asked about any lung conditions, he denies all of that. He does have some ALLERGIC rhinitis and some nasal congestion and stuffiness chronically. He does take Singulair occasionally will use a rescue inhaler such as Ventolin. Lung function again were excellent. I think we'll do well with surgery. I explained this to the patient and the patient's family. They understand. No additional recommendations are made. The patient may be discharged home today. Time with Patient: Greater than 30
== END 2017-11-20 12:49 | disposition home or self-care (01) | DRG 281 ==
LOC: EC 06:25 → 6SEL 08:33 → OBSVTOIN 11-18 13:23
PROVIDERS: ADMIT Internal Medicine; ATTEND Internal Medicine
PROC: 4A133B3 Monitoring of Arterial Pressure, Pulmonary, Percutaneous Approach (ICD-10-PCS; 2017-11-18)
PROC: 4A1239Z Monitoring of Cardiac Output, Percutaneous Approach (ICD-10-PCS; 2017-11-18)
PROC: B246ZZ4 Ultrasonography of Right and Left Heart, Transesophageal (ICD-10-PCS; 2017-11-18)
PROC: 4A023N6 Measurement of Cardiac Sampling and Pressure, Right Heart, Percutaneous Approach (ICD-10-PCS; principal; 2017-11-18 09:55)
PROC: B211YZZ Fluoroscopy of Multiple Coronary Arteries using Other Contrast (ICD-10-PCS; 2017-11-18 09:55)
DX: I21.4 Non-ST elevation (NSTEMI) myocardial infarction (principal); I50.32 Chronic diastolic (congestive) heart failure; I08.3 Combined rheumatic disorders of mitral, aortic and tricuspid valves; I11.0 Hypertensive heart disease with heart failure; E11.9 Type 2 diabetes mellitus without complications; I25.119 Atherosclerotic heart disease of native coronary artery with unspecified angina pectoris; J45.909 Unspecified asthma, uncomplicated; E78.5 Hyperlipidemia, unspecified; M19.91 Primary osteoarthritis, unspecified site; N40.0 Benign prostatic hyperplasia without lower urinary tract symptoms; E78.00 Pure hypercholesterolemia, unspecified; F17.201 Nicotine dependence, unspecified, in remission; Z79.82 Long term (current) use of aspirin; Z79.84 Long term (current) use of oral hypoglycemic drugs; Z79.51 Long term (current) use of inhaled steroids; Z79.899 Other long term (current) drug therapy; Z86.14 Personal history of Methicillin resistant Staphylococcus aureus infection; Z86.018 Personal history of other benign neoplasm; Z90.11 Acquired absence of right breast and nipple; Z82.49 Family history of ischemic heart disease and other diseases of the circulatory system; Z80.8 Family history of malignant neoplasm of other organs or systems; Z80.51 Family history of malignant neoplasm of kidney; Z83.49 Family history of other endocrine, nutritional and metabolic diseases
CPT/HCPCS: 36415; 71046; 71275; 80048; 80053; 80061; 80074; 81001; 81003; 82550; 82553; 82810; 83036; 83735; 83880; 84443; 84484; 85018; 85025; 85049; 85379; 85610; 85730; 87070; 87086; 93005; 93306; 93312; 93320; 93325; 93456; 93567; 93880; 94150; 94640; 96365; 96376; 99285

== ENCOUNTER → 2017-11-27 | Outpatient (CLI) | payer MEDICARE, BC ==
[2017-11-27 14:37] LABS: Basophils # (A) 0.1 k/uL (0-0.2); Basophils % (A) 1 %; Eosinophils # (A) 0.6 k/uL (0-0.7); Eosinophils % (A) 10 %; HCT 38.8 % (39.0-53.0); HGB 12.8 gm/dL (13.0-17.5); Lymphocytes # (A) 0.9 k/uL (1.0-4.8); Lymphocytes % (A) 16 %; MCH 30.2 pg (25.0-35.0); MCHC 32.9 g/dL (31.0-37.0); MCV 91.6 fL (80.0-100.0); Mean Platelet Volume 7.8; Monocytes # (A) 0.4 k/uL (0-1.0); Monocytes % (A) 6 %; Neutrophils # (A) 3.8 k/uL (1.3-7.7); Neutrophils % (A) 65 %; Platelet Count 182 k/uL (150-450); RBC 4.24 m/uL (4.30-5.90); RDW 13.5 % (11.5-15.5); WBC 5.8 k/uL (3.8-10.6)
[2017-11-27 14:44] LABS: INR 1.2 (<1.2); Partial Thromboplastin Time 26.5 sec (22.0-30.0); Prothrombin Time 11.7 sec (9.0-12.0)
[2017-11-27 14:55] LABS: Albumin 4.2 g/dL (3.5-5.0); Calcium 9.7 mg/dL (8.4-10.2); Potassium 4.7 mmol/L (3.5-5.1); Total Bilirubin 0.4 mg/dL (0.2-1.3); Total Protein 6.5 g/dL (6.3-8.2)
--- NOTE | 2017-12-02 10:23 | P.VSCSTY ---
Greater Saphenous Vein Mapping This is bilateral lower extremity greater saphenous vein mapping. Date of service 11/27/17 Vein quality and ultrasound appearance no obvious intraluminal luminal thrombus or wall changes.. Vein size groin right 5.9 x 5.9 groin left 7.0 x 6.9 High thigh right 4.6 x 4.7 high thigh left 7.0 x 6.9 Mid thigh right 4.7 x 4.6 mid thigh left 5.3 x 4.8 Above-knee right 3.9 x 4.1 above-knee left 4.2 x 3.9 Below knee right 3.4 x 3.6 below-knee left 4.2 x 3.7 Mid calf right 3.2 x 3.4 mid calf left 3.3 x 3.1 Ankle right 3.1 x 3.4 ankle left 2.6 x 2.9 Impression usable bilateral greater saphenous vein..
--- NOTE | 2017-12-08 04:17 | PN ---
PROGRESS NOTE The patient is status post aortic valve replacement. The patient is doing fairly well. He is afebrile with a heart rate is 72 per minute and regular, blood pressure is 128/64 mmHg. Respirations are not labored. First and second heart sounds are normal. Lungs are clinically clear to auscultation and percussion. The patient's hemoglobin is 8.9 and the creatinine is 1.10. We will continue the patient on current medications. MMODL / IJN: [id number] /
== END | disposition home or self-care (01) ==
LOC: LABPAT 08:40
PROVIDERS: ATTEND Surgery
DX: Z01.810 Encounter for preprocedural cardiovascular examination (principal); Z01.812 Encounter for preprocedural laboratory examination; I08.3 Combined rheumatic disorders of mitral, aortic and tricuspid valves; D62 Acute posthemorrhagic anemia; J90 Pleural effusion, not elsewhere classified; Z79.01 Long term (current) use of anticoagulants
CPT/HCPCS: 36415; 80053; 85025; 85610; 85730; 86850; 86900; 86901; 86920; 93970

== ENCOUNTER 2017-12-04 05:39 | Inpatient (IN) | payer MEDICARE, BC ==
[~2017-12-04 05:39] MED LIST: ALBUMIN HUMAN 25% 50 ML IV ONE; ALBUMIN HUMAN 5% 500 ML IVPB ONE; ASPIRIN 325 MG TAB PO ONE; ATORVASTATIN 10 MG TAB PO ONE; CALCIUM CHLORIDE 100 MG/ML 10 ML SYRINGE IV ONE; CHLORHEXIDINE GLUCONATE 15 ML CUP MUCOUS MEM ONE; CLEVIDIPINE BUTYRATE 25 MG in EMPTY BAG 1 BAG IV ONE; DEXTROSE 5% IN WATER 1,000 ML with POTASSIUM CHLORIDE 110 MEQ, MAGNESIUM SULFATE 16 MEQ... IV ONE; DEXTROSE 5% IN WATER 1,000 ML with POTASSIUM CHLORIDE 25 MEQ, SODIUM CHLORIDE 2.5MEQ/ML... IRRIGATION ONE; HEPARIN SODIUM 1,000 UN/ML (10ML VL) IV ONE; HEPARIN SODIUM,PORCINE 5,000 UNIT in SODIUM CHLORIDE 0.9% 500 ML IV ONE; INSULIN REGULAR 100 UNIT in SODIUM CHLORIDE 0.9% 100 ML IV ONE; LACTATED RINGERS 1,000 ML IV ONE; MAGNESIUM SULFATE MG 500 MG/ML VIAL IV ONE; MANNITOL 25% 12.5 GM/50 ML VIAL IV ONE; METOPROLOL TARTRATE 12.5 MG TAB PO ONE; NITROGLYCERIN-D5W PMX 25 MG/250 ML BTL IV ONE; NITROGLYCERIN-D5W PMX 50 MG in DEXTROSE/WATER 1 250ML.BAG IV ONE; NOREPINEPHRINE 4 MG in DEXTROSE 5% IN WATER 250 ML IV ONE; PHENYLEPHRINE 40 MG in SODIUM CHLORIDE 0.9% 250 ML IV ONE; PHENYLEPHRINE-0.9% NACL SYG 1 MG/10 ML SYRINGE IV ONE; PROPOFOL 1,000 MG/100 ML VIAL IV ONE; PROTAMINE SULFATE 10 MG/ML 25 ML VIAL IV ONE; PROTAMINE SULFATE 250 MG in EMPTY BAG 1 BAG IV ONE; SODIUM BICARB 8.4% 50 ML SYR (1 MEQ/ML) IV ONE; SODIUM CHLORIDE 0.9% 1,000 ML IV ONE; TRANEXAMIC ACID 2,000 MG in SODIUM CHLORIDE 0.9% 180 ML IV ONE; ceFAZolin 1,000 MG in SODIUM CHLORIDE 0.9% IRRIGATIO 1,000 ML IRRIGATION ONE; ceFAZolin 2,000 MG in SODIUM CHLORIDE 0.9% 30 ML IVPB ONE
[2017-12-04 08:04] LABS: Glucose,Whole Blood 117 mg/dL (75-99)
[2017-12-04 08:54] LABS: ABG Base Excess -2.5 mmol/L; ABG HCO3 23 mmol/L (21-25); ABG Oxygen Saturation 95.7 % (94-97); ABG PCO2 40 mmHg (35-45); ABG PH 7.37 (7.35-7.45); ABG PO2 78 mmHg (83-108); ABG Potassium Whole Blood 3.9 mmol/L (3.4-4.5); ABG Sodium Whole Blood 139 mmol/L (135-146); ABG TCO2 24 mmol/L (19-24)
[2017-12-04 09:53] LABS: ABG Base Excess -1.6 mmol/L; ABG HCO3 25 mmol/L (21-25); ABG PCO2 48 mmHg (35-45); ABG PH 7.32 (7.35-7.45); ABG PO2 108 mmHg (83-108); ABG Potassium Whole Blood 4.4 mmol/L (3.4-4.5); ABG Sodium Whole Blood 138 mmol/L (135-146); ABG TCO2 26 mmol/L (19-24)
[2017-12-04 10:37] LABS: ABG HCO3 27 mmol/L (21-25); ABG Oxygen Saturation 99.8 % (94-97); ABG PCO2 50 mmHg (35-45); ABG PH 7.35 (7.35-7.45); ABG PO2 223 mmHg (83-108); ABG Potassium Whole Blood 5.6 mmol/L (3.4-4.5); ABG Sodium Whole Blood 136 mmol/L (135-146); ABG TCO2 29 mmol/L (19-24)
[2017-12-04 11:06] LABS: ABG Base Excess 0.7 mmol/L; ABG HCO3 26 mmol/L (21-25); ABG PCO2 43 mmHg (35-45); ABG PH 7.39 (7.35-7.45); ABG PO2 267 mmHg (83-108); ABG Potassium Whole Blood 5.9 mmol/L (3.4-4.5); ABG Sodium Whole Blood 133 mmol/L (135-146); ABG TCO2 27 mmol/L (19-24)
[2017-12-04 11:41] LABS: ABG Base Excess -0.7 mmol/L; ABG HCO3 25 mmol/L (21-25); ABG Oxygen Saturation 99.9 % (94-97); ABG PCO2 46 mmHg (35-45); ABG PH 7.34 (7.35-7.45); ABG PO2 286 mmHg (83-108); ABG Sodium Whole Blood 134 mmol/L (135-146); ABG TCO2 27 mmol/L (19-24)
[2017-12-04 12:27] LABS: ABG Base Excess -2.6 mmol/L; ABG HCO3 22 mmol/L (21-25); ABG Oxygen Saturation 98.5 % (94-97); ABG PCO2 38 mmHg (35-45); ABG PH 7.38 (7.35-7.45); ABG PO2 106 mmHg (83-108); ABG Potassium Whole Blood 4.5 mmol/L (3.4-4.5); ABG Sodium Whole Blood 137 mmol/L (135-146); ABG TCO2 23 mmol/L (19-24)
[2017-12-04 12:52] LABS: ABG Base Excess 1.4 mmol/L; ABG HCO3 26 mmol/L (21-25); ABG Oxygen Saturation 99.7 % (94-97); ABG PCO2 41 mmHg (35-45); ABG PH 7.41 (7.35-7.45); ABG PO2 171 mmHg (83-108); ABG Potassium Whole Blood 4.3 mmol/L (3.4-4.5); ABG Sodium Whole Blood 139 mmol/L (135-146); ABG TCO2 27 mmol/L (19-24)
[2017-12-04] MEDS ORDERED: METOCLOPRAMIDE 5 MG/ML 2 ML VIAL IVP PRN (13:13)
[2017-12-04] MEDS ORDERED: IPRATROPIUM-ALBUTEROL 3 ML NEB INHALATION PRN (13:13)
[2017-12-04] MEDS ORDERED: Potassium Replacement Protocol 1 EACH MISC MISCELLANE PRN (13:13)
[2017-12-04] MEDS ORDERED: DEXTROSE 5% IN WATER 100 ML with AMIODARONE 150 MG IV PRN (13:13)
[2017-12-04] MEDS ORDERED: Phosphorus Replacement Protoco 1 EACH MISC MISCELLANE PRN (13:13)
[2017-12-04] MEDS ORDERED: ALBUMIN HUMAN 5% 250 ML in EMPTY BAG 1 BAG IVPB PRN (13:13)
[2017-12-04] MEDS ORDERED: hydrALAZINE HCL 20 MG/ML 1 ML VIAL IVP PRN (13:13)
[2017-12-04] MEDS ORDERED: Magnesium Replacement Protocol 1 EACH MISC MISCELLANE PRN (13:13)
[2017-12-04] MEDS ORDERED: CALCIUM CHLORIDE 1,000 MG in SODIUM CHLORIDE 0.9% 100 ML IV PRN (13:13)
[2017-12-04] MEDS ORDERED: PROPOFOL 1,000 MG in EMPTY BAG 1 BAG IV SCH (13:13)
[2017-12-04] MEDS ORDERED: BENZOCAINE/MENTHOL LOZENG 1 EACH LOZENGE MUCOUS MEM PRN (13:13)
[2017-12-04] MEDS ORDERED: ALPRAZolam 0.25 MG TAB PO PRN (13:13)
[2017-12-04] MEDS: CLEVIDIPINE BUTYRATE 25 MG in EMPTY BAG 1 BAG IV SCH ×2 (13:35→21:15)
[2017-12-04] MEDS: LACTATED RINGERS 1,000 ML IV SCH (13:35)
[2017-12-04] MEDS: INSULIN REGULAR 100 UNIT in SODIUM CHLORIDE 0.9% 100 ML IV SCH (13:35)
[2017-12-04 13:43] LABS: Glucose,Whole Blood 126 mg/dL (75-99)
[2017-12-04 14:07] LABS: INR 1.4 (<1.2); Partial Thromboplastin Time 43.1 sec (22.0-30.0); Prothrombin Time 13.5 sec (9.0-12.0)
[2017-12-04 14:10] LABS: Basophils % (A) 0 %; Eosinophils # (A) 0.2 k/uL (0-0.7); Eosinophils % (A) 3 %; Lymphocytes # (A) 0.9 k/uL (1.0-4.8); Lymphocytes % (A) 11 %; MCH 30.3 pg (25.0-35.0); MCHC 33.2 g/dL (31.0-37.0); MCV 91.1 fL (80.0-100.0); Mean Platelet Volume 8.3; Monocytes # (A) 0.6 k/uL (0-1.0); Monocytes % (A) 7 %; Neutrophils # (A) 6.3 k/uL (1.3-7.7); Neutrophils % (A) 79 %; Platelet Count 113 k/uL (150-450); RBC 3.07 m/uL (4.30-5.90); RDW 13.7 % (11.5-15.5)
[2017-12-04 14:13] LABS: ABG Base Excess 0.6 mmol/L; ABG HCO3 26 mmol/L (21-25); ABG Oxygen Saturation 99.2 % (94-97); ABG PCO2 49 mmHg (35-45); ABG PH 7.34 (7.35-7.45); ABG PO2 130 mmHg (83-108); ABG TCO2 28 mmol/L (19-24)
[2017-12-04 14:16] LABS: HGB 9.3 gm/dL (13.0-17.5)
--- NOTE | 2017-12-04 14:18 | XR ---
EXAMINATION TYPE: XR chest 1V portable DATE OF EXAM: 12/04/2017 COMPARISON: Prior chest x-ray 11/17/2017 HISTORY: Status post cardiac surgery TECHNIQUE: Single frontal view of the chest is obtained. FINDINGS: Patient is post median sternotomy and rotated. Endotracheal tube, NG tube, right chest tub e, right jugular central venous catheter and coaxial Elgin-Bon catheter, atrial appendage clipping, a ortic valve replacement change are present. Lung volumes are low. Perihilar increased density is pres ent. There is retrocardiac density obscuring the left hemidiaphragm. No evident pneumothorax. Median sternal drain in place. IMPRESSION: Rotated expiratory exam. Probable basilar atelectasis, difficult to exclude a component of volume overload, pulmonary venous hypertension and interstitial edema, there may be small effusion . No sizable pneumothorax. Follow-up recommended.
[2017-12-04 14:23] LABS: Ionized Calcium 4.6 mg/dL (4.5-5.3)
[2017-12-04 14:31] LABS: ALT 26 U/L (21-72); AST 21 U/L (17-59); Albumin 3.1 g/dL (3.5-5.0); Alkaline Phosphatase 30 U/L (38-126); Anion Gap 5 mmol/L; Blood Urea Nitrogen 18 mg/dL (9-20); Calcium 7.8 mg/dL (8.4-10.2); Carbon Dioxide 26 mmol/L (22-30); Chloride 108 mmol/L (98-107); Glucose 117 mg/dL (74-99); Magnesium 2.3 mg/dL (1.6-2.3); Potassium 4.3 mmol/L (3.5-5.1); Sodium 139 mmol/L (137-145); Total Bilirubin 0.3 mg/dL (0.2-1.3); Total Protein 4.7 g/dL (6.3-8.2)
[2017-12-04 14:38] LABS: Glucose,Whole Blood 116 mg/dL (75-99)
[2017-12-04 15:16] LABS: Glucose,Whole Blood 128 mg/dL (75-99)
[2017-12-04] MEDS: ceFAZolin IN SWFI 2 GM/20 ML SYRINGE IVP SCH ×2 (15:21→23:55)
--- NOTE | 2017-12-04 15:22 | P.CNPUL ---
History of Present Illness Consult date: 12/04/17 Chief complaint: Aortic valve replacement, ventilator management History of present illness: This is a 72-year-old male patient who underwent an aortic valve replacement and the patient is currently in the intensive care unit intubated on a mechanical ventilator and I was consulted for postoperative care. The patient is known to have aortic stenosis, hypertension, hyperlipidemia, diabetes mellitus, and bronchial asthma. He is an ex-smoker. The patient was having exertional dyspnea and 2 episodes of syncope. Cardiac catheterization was done and it showed a 30-40% disease involving the right coronary artery and the rest of the coronaries were all within normal limits. The preoperative valve area was 0.7 cm. Based on this, surgery was done. Currently the patient is intubated on a mechanical ventilator. He is sedated with Diprivan. I have switched this patient to an assist-control mode of ventilation at the rate of 12 , tidal volume of 580, FiO2 was dropped down to 80% and PEEP is at 5. The postop blood gases showed a pH of 7.33 with a pCO2 of 49 and pO2 of 130 and this was on the fourth of 100%. He is hemodynamically stable. He is currently on Cleviprex drip which is running at 8 mg an hour. The patient's cardiac index is at 2.5. Cardiac up as of 5.3. PA pressures are 35/21. The right- sided chest tube was placed without 30 mL and the mediastinal chest tube has put out 70 mL the patient's arrival from the operating room. Urine output is in order of 35 mL an hour. Chest x-ray shows postoperative findings with an accurate positioning of ET tube, [place]-Bon catheter and chest tube. There is possibly development of a left-sided pleural effusion. There is only vessel congestion/early edema based on chest x-ray findings. Review of Systems ROS unobtainable: due to endotracheal tube Past Medical History Past Medical History: Asthma, Cancer, Diabetes Mellitus, Hyperlipidemia, Hypertension, Osteoarthritis (OA), Prostate Disorder Additional Past Medical History / Comment(s): AORTIC VALVE STENOSIS, HX SKIN CA. History of Any Multi-Drug Resistant Organisms: None Reported MDRO Source:: left leg 1961 Past Surgical History: Heart Catheterization Additional Past Surgical History / Comment(s): left leg infection removed, Benign right breast tumor 1961, Past Anesthesia/Blood Transfusion Reactions: No Reported Reaction Smoking Status: Former smoker - Past Family History Mother Family Medical History: Cancer, Congestive Heart Failure (CHF) Additional Family Medical History / Comment(s): renal, melanoma Father Family Medical History: Cancer Additional Family Medical History / Comment(s): melanoma Sister(s) Family Medical History: AFIB Brother(s) Family Medical History: No Reported History Daughter(s) Family Medical History: No Reported History Son(s) Family Medical History: No Reported History Medications and Allergies Home Medications Medication Instructions Recorded Confirmed Type Aspirin [Adult Low Dose Aspirin EC] 81 mg PO HS 10/03/16 12/04/17 History Calcium Carbonate/Vitamin D3 1 tab PO HS 10/03/16 12/04/17 History [Calcium 600-Vit D3 800 Tab] Doxazosin Mesylate [Cardura] 8 mg PO BID 10/03/16 12/04/17 History Finasteride [Proscar] 5 mg PO HS 10/03/16 12/04/17 History Glimepiride [Amaryl] 4 mg PO BID 10/03/16 12/04/17 History Montelukast [Singulair] 10 mg PO DAILY 10/03/16 12/04/17 History Valsartan/Hydrochlorothiazide 1 tab PO DAILY 10/03/16 12/04/17 History [Valsartan-Hctz 320-12.5 mg Tab] Vitamin E 400 unit PO HS 10/03/16 12/04/17 History amLODIPine [Norvasc] 5 mg PO BID 10/03/16 12/04/17 History metFORMIN HCL [Metformin HCl] 1,000 mg PO BID 10/03/16 12/04/17 History Carvedilol [Coreg] 6.25 mg PO BID 11/17/17 12/04/17 History Furosemide [Lasix] 40 mg PO MOWEFR 11/17/17 12/04/17 History Mometasone/Formoterol [Dulera 100 2 puff INHALATION RT-BID PRN 11/17/17 History Mcg/5 Mcg Inhaler] Atorvastatin [Lipitor] 40 mg PO HS #30 tab 11/20/17 12/04/17 Rx hydrALAZINE HCL [Apresoline] 25 mg PO BID #60 tab 11/20/17 12/04/17 Rx Pioglitazone [Actos] 15 mg PO QAM 11/21/17 12/04/17 History Allergies Allergy/AdvReac Type Severity Reaction Status Date / Time No Known Allergies Allergy Verified 12/04/17 06:00 Physical Exam Vitals: Vital Signs Temp Pulse Pulse Resp BP BP Pulse Ox 12/04/17 15:00 79 13 95 12/04/17 14:45 79 12 98 12/04/17 14:30 79 11 L 98 12/04/17 14:15 79 11 L 100 12/04/17 14:00 80 12 99 12/04/17 13:58 80 11 L 98 12/04/17 13:57 79 26 H 98 12/04/17 13:56 79 12 98 12/04/17 13:55 80 11 L 98 12/04/17 13:54 79 23 98 12/04/17 13:53 80 11 L 97 12/04/17 13:52 56 L 11 L 98 12/04/17 13:51 57 L 13 98 12/04/17 13:50 60 14 98 12/04/17 13:49 60 8 L 98 12/04/17 13:48 60 6 L 98 12/04/17 13:47 60 13 97 12/04/17 13:46 61 12 98 12/04/17 13:45 61 58 L 12 99 12/04/17 13:44 96.5 F L 61 12 99 12/04/17 13:40 69 15 99 12/04/17 06:22 98.1 F 58 L 16 181/79 176/81 99 Intake and Output 12/04/17 12/04/17 12/04/17 06:59 14:59 22:59 Intake Total 62 59 Output Total 1720 175 Balance -1658 -116 Intake: IV 62 59 0.9 Pressure Bag 9 Cardiac Output 30 Lactated Ringers 1,000 ml 50 @ 50 mls/hr IV .Q20H [facility] Rx#:[id number] Output: Chest Tube Drainage 100 75 Mediastinal 70 50 Right Lateral Chest 30 25 Urine 420 100 Estimated Blood Loss 1200 Other: Voiding Method Indwelling Catheter Weight 93.2 kg ABP, PAP, CO, CI - Last 8 Hours Arterial Blood Pressure 117/48 Arterial Blood Pressure 125/53 Arterial Blood Pressure 150/57 Arterial Blood Pressure 145/56 Arterial Blood Pressure 133/53 Arterial Blood Pressure 128/51 Arterial Blood Pressure 122/49 Arterial Blood Pressure 121/51 Arterial Blood Pressure 117/49 Arterial Blood Pressure 116/45 Arterial Blood Pressure 100/41 Arterial Blood Pressure 93/34 Arterial Blood Pressure 101/35 Arterial Blood Pressure 118/27 Arterial Blood Pressure 138/48 Arterial Blood Pressure 136/50 Arterial Blood Pressure 142/53 Arterial Blood Pressure 147/54 Arterial Blood Pressure 156/57 Arterial Blood Pressure 154/58 Arterial Blood Pressure 138/68 Pulmonary Artery Pressure 35/21 Pulmonary Artery Pressure 37/24 Pulmonary Artery Pressure 35/20 Pulmonary Artery Pressure 30/16 Pulmonary Artery Pressure 28/16 Pulmonary Artery Pressure 29/16 Pulmonary Artery Pressure 30/17 Pulmonary Artery Pressure 28/19 Pulmonary Artery Pressure 31/19 Pulmonary Artery Pressure 34/19 Pulmonary Artery Pressure 33/17 Pulmonary Artery Pressure 32/16 Pulmonary Artery Pressure 32/16 Pulmonary Artery Pressure 35/14 Pulmonary Artery Pressure 35/17 Pulmonary Artery Pressure 35/18 Pulmonary Artery Pressure 36/20 Pulmonary Artery Pressure 340/304 Pulmonary Artery Pressure 42/23 Pulmonary Artery Pressure 25/13 Pulmonary Artery Pressure 24/14 Cardiac Output 5.3 Cardiac Output 5.3 Cardiac Output 5.3 Cardiac Output 5.3 Cardiac Output 5.3 Cardiac Output 5.3 Cardiac Output 5.3 Cardiac Output 5.3 Cardiac Output 5.3 Cardiac Output 5.3 Cardiac Output 5.3 Cardiac Output 5.3 Cardiac Output 5.3 Cardiac Output 5.3 Cardiac Output 5.3 Cardiac Output 5.3 Cardiac Output 5.3 Cardiac Output 5.3 Cardiac Output 5.3 Cardiac Output 5.3 Cardiac Index 2.5 Gen. appearance the patient, comfortable likely distress intubated on a mechanical ventilator. Head exam was generally normal. There was no scleral icterus or corneal arcus. Mucous membranes were moist. The patient has a right IJ [place] catheter which is in place. Neck was supple and without jugular venous distension, thyromegaly, or carotid bruits. Carotids were easily palpable bilaterally. There was no adenopathy. Lungs were clear to auscultation and percussion, and with normal diaphragmatic excursion. No wheezes or rales were noted. The patient is a mediastinal chest tube in the right pleural chest tube. Both of the tubes are skewed in place. Sternum stable clean and intact. Cardiac exam revealed the PMI to be normally situated and sized. The rhythm was regular and no extrasystoles were noted during several minutes of auscultation. The first and second heart sounds were normal and physiologic splitting of the second heart sound was noted. There were no murmurs, rubs, clicks, or gallops. Abdominal exam revealed normal bowel sounds. The abdomen was soft, non-tender, and without masses, organomegaly, or appreciable enlargement of the abdominal aorta. Examination of the extremities revealed easily palpable radial, femoral and pedal pulses. There was no cyanosis, clubbing or edema. Examination of the skin revealed no evidence of significant rashes, suspicious appearing nevi or other concerning lesions. Neurologically the patient is sedated. Results - Laboratory Findings CBC and BMP: 12/04/17 13:35 12/04/17 13:35 ABG ABG pH 7.34 (7.35-7.45) L 12/04/17 14:10 ABG pCO2 49 mmHg (35-45) H 12/04/17 14:10 ABG pO2 130 mmHg (83-108) H 12/04/17 14:10 ABG O2 Saturation 99.2 % (94-97) H 12/04/17 14:10 PT/INR, D-dimer PT 13.5 sec (9.0-12.0) H 12/04/17 13:35 INR 1.4 (<1.2) H 12/04/17 13:35 Abnormal lab findings: Abnormal Labs 11/27/17 12/04/17 12/04/17 14:00 06:42 08:56 RBC Hgb Hct Plt Count Lymphocytes # PT INR APTT ABG pH ABG pCO2 ABG pO2 78 L ABG HCO3 ABG Total CO2 ABG O2 Saturation ABG Hematocrit ABG Sodium ABG Potassium ABG Ionized Calcium ABG Glucose 151 H ABG Lactic Acid Hemoglobin 11.1 L Chloride Glucose POC Glucose (mg/dL) 117 H Calcium Alkaline Phosphatase Total Protein Albumin Arterial Blood Potassium Arterial Blood Glucose 151 H Crossmatch See Detail 12/04/17 12/04/17 12/04/17 09:55 10:39 11:08 RBC Hgb Hct Plt Count Lymphocytes # PT INR APTT ABG pH 7.32 L ABG pCO2 48 H 50 H ABG pO2 223 H 267 H ABG HCO3 27 H 26 H ABG Total CO2 26 H 29 H 27 H ABG O2 Saturation 98.0 H 99.8 H 100.0 H ABG Hematocrit 32 L 29 L ABG Sodium 133 L ABG Potassium 5.6 H 5.9 H ABG Ionized Calcium 4.4 L 4.4 L ABG Glucose 159 H 206 H 221 H ABG Lactic Acid Hemoglobin 11.8 L 10.3 L 9.3 L Chloride Glucose POC Glucose (mg/dL) Calcium Alkaline Phosphatase Total Protein Albumin Arterial Blood Potassium 5.6 H 5.9 H Arterial Blood Glucose 159 H 206 H 221 H Crossmatch 12/04/17 12/04/17 12/04/17 11:43 12:30 12:54 RBC Hgb Hct Plt Count Lymphocytes # PT INR APTT ABG pH 7.34 L ABG pCO2 46 H ABG pO2 286 H 171 H ABG HCO3 26 H ABG Total CO2 27 H 27 H ABG O2 Saturation 99.9 H 98.5 H 99.7 H ABG Hematocrit 29 L 30 L 29 L ABG Sodium 134 L ABG Potassium 6.0 H ABG Ionized Calcium 4.4 L 4.3 L 4.2 L ABG Glucose 215 H 156 H 144 H ABG Lactic Acid 1.8 H 2.0 H 1.7 H Hemoglobin 9.6 L 9.7 L 9.6 L Chloride Glucose POC Glucose (mg/dL) Calcium Alkaline Phosphatase Total Protein Albumin Arterial Blood Potassium 6.0 H Arterial Blood Glucose 215 H 156 H 144 H Crossmatch 12/04/17 12/04/17 12/04/17 13:35 13:35 13:35 RBC 3.07 L Hgb 9.3 L D Hct 28.0 L Plt Count 113 L Lymphocytes # 0.9 L PT 13.5 H INR 1.4 H APTT 43.1 H ABG pH ABG pCO2 ABG pO2 ABG HCO3 ABG Total CO2 ABG O2 Saturation ABG Hematocrit ABG Sodium ABG Potassium ABG Ionized Calcium ABG Glucose ABG Lactic Acid Hemoglobin Chloride 108 H Glucose 117 H POC Glucose (mg/dL) Calcium 7.8 L Alkaline Phosphatase 30 L Total Protein 4.7 L Albumin 3.1 L Arterial Blood Potassium Arterial Blood Glucose Crossmatch 12/04/17 12/04/17 12/04/17 13:39 14:10 14:17 RBC Hgb Hct Plt Count Lymphocytes # PT INR APTT ABG pH 7.34 L ABG pCO2 49 H ABG pO2 130 H ABG HCO3 26 H ABG Total CO2 28 H ABG O2 Saturation 99.2 H ABG Hematocrit ABG Sodium ABG Potassium ABG Ionized Calcium ABG Glucose ABG Lactic Acid Hemoglobin Chloride Glucose POC Glucose (mg/dL) 126 H 116 H Calcium Alkaline Phosphatase Total Protein Albumin Arterial Blood Potassium Arterial Blood Glucose Crossmatch - Diagnostic Findings Chest x-ray: image reviewed Assessment and Plan Plan: Assessment 1 severe aortic stenosis and the patient is currently postop aortic valve replacement, postop day #0. Hemodynamically stable. Currently on no pressors. He is receiving Cleviprex drip for blood pressure control. 2 post thoracotomy ventilator management. The patient is currently intubated on mechanical ventilator, and expected outcome of surgery and the patient is in the process of being weaned off the mechanical ventilator. 3 nonocclusive coronary artery disease based on a preop cardiac catheterization 4 diabetes mellitus 5 hypertension, history of 6 hyperlipidemia 7 anemia, and expected outcome of thoracic surgery and cardiac surgery 8 BPH 9 bronchial asthma Plan Patient is hemodynamically stable. We will wean down the FiO2 as tolerated to maintain a saturation above 90%. Dropped FiO2 down to 60%. Resident settings will be kept unchanged. Chest x-ray was reviewed. There is a consent hours pulmonary edema. Chest tubes are also in place. Output is minimal at this point in time. The patient is producing adequate amount of urine output. The patient is on clevidipine drip for blood pressure control. We'll titrate the blood pressure medication accordingly. He is still sedated. Keep sedated there is a patient's FiO2 is within reasonable range. Anticipate expiration within the next few hours. We'll continue to follow. We will follow the routine protocol for weaning once the patient is ready.
[2017-12-04] MEDS: IPRATROPIUM-ALBUTEROL 3 ML NEB INHALATION SCH ×2 (15:25→19:17)
[2017-12-04] MEDS ORDERED: CALCIUM CHLORIDE 500 MG in SODIUM CHLORIDE 0.9% 50 ML IVPB ONE (15:45)
[2017-12-04] MEDS: MORPHINE SULFATE 2 MG/ML SYRINGE IVP PRN ×2 (15:59→17:11)
[2017-12-04 16:35] LABS: Glucose,Whole Blood 157 mg/dL (75-99)
[2017-12-04 16:54] LABS: ABG Base Excess -0.6 mmol/L; ABG HCO3 24 mmol/L (21-25); ABG Oxygen Saturation 92.1 % (94-97); ABG PCO2 41 mmHg (35-45); ABG PH 7.38 (7.35-7.45); ABG PO2 61 mmHg (83-108); ABG TCO2 26 mmol/L (19-24)
[2017-12-04 17:25] LABS: Glucose,Whole Blood 170 mg/dL (75-99)
[2017-12-04] MEDS: ACETAMINOPHEN IV (For NPO) 1,000 MG in EMPTY BAG 1 BAG IVPB SCH ×2 (17:25→23:02)
--- NOTE | 2017-12-04 18:05 | OP ---
OPERATIVE REPORT DATE OF PROCEDURE: 12/04/2017 SURGEON: Dr. Yamileth Lopez. TOLL TRANSMISSION WORKER: Padmini SCHULZ. ANESTHESIA: Dr. Alexis. PREOPERATIVE DIAGNOSES: 1. Severe calcific aortic valve stenosis. 2. Mild aortic valve regurgitation. 3. Mild to moderate mitral valve regurgitation. 4. Preserved left ventricular function. 5. Diabetes. 6. Hyperlipidemia. 7. Hypertension. POSTOPERATIVE DIAGNOSES: 1. Severe calcific aortic valve stenosis. 2. Mild aortic valve regurgitation. 3. Mild to moderate mitral valve regurgitation. 4. Preserved left ventricular function. 5. Diabetes. 6. Hyperlipidemia. 7. Hypertension. PROCEDURE: 1. Aortic valve replacement using a 23 mm bovine bioprosthesis, Inspiris. 2. Exclusion of the left atrial appendage using a 35 mm AtriClip. 3. Intraoperative transesophageal echocardiogram and epiaortic scanning. INDICATION FOR SURGERY: The patient is a 72-year-old gentleman followed for a while with known aortic valve stenosis. The patient became symptomatic over the last several months with increased fatigue and dyspnea on exertion and 2 syncopal episodes. Cardiac catheterization ruled out any significant coronary artery disease. The patient is brought in today for aortic valve replacement. The STS risk was discussed with him and his . They understood it and agreed to proceed. DESCRIPTION OF THE PROCEDURE: The patient had a right internal jugular [place]-Bon catheter and a right radial arterial line placed in the preoperative holding area. Subsequently he was brought to the operating room. His pre-induction PA pressure was 52/23 and his cardiac index was 2.5. Subsequently general endotracheal anesthesia was induced uneventfully. A [place] catheter was inserted without difficulty. Chest, abdomen and both lower extremities were prepped and draped using ChloraPrep. Ioban was used to cover the skin. Patient received 2 grams of cefazolin intravenously. Transesophageal echocardiogram confirmed the preoperative finding of preserved systolic function, severe aortic valve stenosis with a valve area by planimetry of around 0.7 cm2 and mild to moderate central mitral valve regurgitation without any structural abnormalities of the mitral valve. Midline sternotomy was performed and no bone wax was used. The right pleura was unintentionally opened in this process and was drained with a 28-Belgian chest tube. Mediastinal fat was transected between 2 ties. Epiaortic scanning revealed normal ascending aorta with no protruding atheroma. Pericardium was opened in an inverted T-fashion and a pericardial cradle was created. Findings included a normal-size heart and a short, high situated aorta. After systemic heparinization and placement of respective pledgeted pursestrings, a 21- [place] soft flow aortic cannula was inserted as well as a dual-stage venous cannula via the right atrial appendage. Antegrade as well as retrograde cardioplegia catheters were also placed. Cardioplegia bypass was initiated. The patient's temperature was allowed to drift down to 34 degrees Celsius. The aorta was clamped subsequently, and during 77 minutes of aortic clamping, myocardial protection was achieved with an initial dose of around 800 mL of antegrade cold blood cardioplegia, with adequate arrest at around 250 mL followed by 400 mL of retrograde cold blood cardioplegia. All subsequent doses were given retrograde at 15- minute intervals. We started by excluding the left atrial appendage at its base using a 35 mm AtriClip. Subsequently the aorta was opened in a transverse fashion around 1 cm above the sinotubular junction. Exploration revealed a heavily calcified trileaflet aortic valve which was stenotic. We proceeded to excise the valve and also performed a tedious decalcification of his severely calcified anulus. Both coronary ostia were in normal position. After adequate debridement to pliable anulus, thorough irrigation was performed. The valve was measured to a 23 mm prosthesis, which was selected and was prepared on the back table. It was the new bovine bioprosthesis Inspiris. We placed a total of 16 pledgeted Tycron 2-0 in a horizontal fashion with the pledgets on the ventricular side. All those sutures were passed symmetrically into the cuff of the bioprosthesis, which seated nicely in a supra-annular position. All the needles were cut and the sutures tied using the Cor knot device. Both coronary ostia were clear. Exploration of the area below the valve revealed good seating and no loose fragments. Thorough irrigation was performed. Re-warming was started as we closed the aorta using Prolene 4-0 in 2 layers, the first layer being in a horizontal mattress and the second layer in [id number] technique. The CO2 that was flowing over the field with the aorta opened was closed at this point. De-airing maneuvers were followed before unclamping the aorta. The patient regained spontaneous sinus rhythm with a first-degree AV block. REESE showed no paravalvular leak. After a period of reperfusion and after adequate de-airing proven by REESE, we weaned off cardiopulmonary bypass without the need of any inotropic or vasopressor support. atrially paced at 80 via 2 monopolar atrial pacing wires that were affixed to the respective pursestrings on the right atrium. With a satisfactory echo, test dose and full dose protamine was given. Decannulation followed. The retrograde cardioplegia site required reinforcement as well as the venous cannulation site. The aortotomy was satisfactory. One bipolar ventricular pacing wire was driven via the inferior aspect of the right ventricle. One 32-Belgian chest tube was placed substernally. Pericardial fat was approximated loosely over the right ventricle and the mediastinal fat was approximated over the aorta. After ensuring adequate hemostasis and hemodynamics and after correct sponge, instrument, and needle count, the sternum was closed using 5 [id number] pineal cables after interposing Fibrillar between the sternal edges. Thorough irrigation with cefazolin followed. The rest of the closure proceeded in layers. Skin glue was applied. Patient did not receive any blood bank product but received 600 mL of Cell Saver blood. He was transferred to the ICU in stable condition. He was atrially paced at 80 with good conduction. PA pressure was 30/15, cardiac index was 3.1 with a mean arterial pressure of 75. MMODL / IJN: [id number] /
[2017-12-04 18:19] LABS: Glucose,Whole Blood 168 mg/dL (75-99)
[2017-12-04 18:38] LABS: Basophils % (A) 0 %; Eosinophils % (A) 1 %; HCT 30.6 % (39.0-53.0); HGB 10.3 gm/dL (13.0-17.5); Lymphocytes # (A) 0.5 k/uL (1.0-4.8); Lymphocytes % (A) 5 %; MCH 30.6 pg (25.0-35.0); MCHC 33.7 g/dL (31.0-37.0); MCV 90.7 fL (80.0-100.0); Mean Platelet Volume 8.7; Monocytes # (A) 0.4 k/uL (0-1.0); Monocytes % (A) 5 %; Neutrophils % (A) 89 %; Platelet Count 121 k/uL (150-450); RBC 3.37 m/uL (4.30-5.90); RDW 13.7 % (11.5-15.5)
[2017-12-04 19:19] LABS: Glucose,Whole Blood 167 mg/dL (75-99)
[2017-12-04] MEDS ORDERED: METOPROLOL TARTRATE 12.5 MG TAB PO STA (20:01)
[2017-12-04] MEDS: FINASTERIDE 5 MG TAB PO SCH (20:24)
[2017-12-04] MEDS: MONTELUKAST 10 MG TAB PO SCH (20:25)
[2017-12-04 20:27] LABS: Glucose,Whole Blood 159 mg/dL (75-99)
[2017-12-04 21:02] LABS: Glucose,Whole Blood 155 mg/dL (75-99)
[2017-12-04 22:01] LABS: Glucose,Whole Blood 148 mg/dL (75-99)
[2017-12-04] MEDS: MUPIROCIN 2% OINT 22 GM TUBE NASAL SCH (22:38)
[2017-12-04 23:03] LABS: Glucose,Whole Blood 154 mg/dL (75-99)
[2017-12-04] MEDS ORDERED: MUPIROCIN 2% OINT 22 GM TUBE NASAL ONE (23:30)
[2017-12-04] MEDS: HEPARIN SODIUM,PORCINE 5,000 UNIT/ML 1 ML VIAL SQ SCH (23:56)
[2017-12-05 00:17] LABS: Glucose,Whole Blood 155 mg/dL (75-99)
[2017-12-05 00:58] LABS: Glucose,Whole Blood 147 mg/dL (75-99)
[2017-12-05] MEDS: CLEVIDIPINE BUTYRATE 25 MG in EMPTY BAG 1 BAG IV SCH ×3 (01:18→07:03)
[2017-12-05] MEDS: INSULIN REGULAR 100 UNIT in SODIUM CHLORIDE 0.9% 100 ML IV SCH ×2 (02:04→19:06)
[2017-12-05 02:07] LABS: Glucose,Whole Blood 140 mg/dL (75-99)
[2017-12-05 03:10] LABS: Glucose,Whole Blood 133 mg/dL (75-99)
[2017-12-05 04:19] LABS: Glucose,Whole Blood 131 mg/dL (75-99)
[2017-12-05 04:27] LABS: Basophils % (A) 0 %; Eosinophils % (A) 0 %; HCT 30.1 % (39.0-53.0); HGB 10.3 gm/dL (13.0-17.5); Lymphocytes # (A) 0.5 k/uL (1.0-4.8); Lymphocytes % (A) 4 %; MCH 31.5 pg (25.0-35.0); MCHC 34.4 g/dL (31.0-37.0); MCV 91.7 fL (80.0-100.0); Mean Platelet Volume 7.8; Monocytes # (A) 0.7 k/uL (0-1.0); Monocytes % (A) 7 %; Neutrophils # (A) 9.7 k/uL (1.3-7.7); Neutrophils % (A) 88 %; Platelet Count 131 k/uL (150-450); RBC 3.28 m/uL (4.30-5.90); RDW 13.9 % (11.5-15.5); WBC 11.1 k/uL (3.8-10.6)
[2017-12-05 04:32] LABS: Ionized Calcium 4.7 mg/dL (4.5-5.3)
[2017-12-05 04:35] LABS: INR 1.2 (<1.2); Partial Thromboplastin Time 27.8 sec (22.0-30.0); Prothrombin Time 11.5 sec (9.0-12.0)
[2017-12-05 04:39] LABS: Albumin 3.5 g/dL (3.5-5.0); Calcium 8.5 mg/dL (8.4-10.2); Magnesium 2.1 mg/dL (1.6-2.3); Potassium 4.1 mmol/L (3.5-5.1); Total Bilirubin 0.4 mg/dL (0.2-1.3); Total Protein 5.3 g/dL (6.3-8.2)
[2017-12-05 06:16] LABS: Glucose,Whole Blood 129 mg/dL (75-99)
[2017-12-05] MEDS: ACETAMINOPHEN IV (For NPO) 1,000 MG in EMPTY BAG 1 BAG IVPB SCH ×3 (06:18→18:18)
[2017-12-05 07:06] LABS: Glucose,Whole Blood 123 mg/dL (75-99)
[2017-12-05] MEDS: IPRATROPIUM-ALBUTEROL 3 ML NEB INHALATION SCH ×4 (07:40→20:24)
--- NOTE | 2017-12-05 08:16 | XR ---
EXAMINATION TYPE: XR chest 1V portable DATE OF EXAM: 12/05/2017 COMPARISON: Prior chest x-ray 12/04/2017 HISTORY: Postop cardiac surgery TECHNIQUE: Single frontal view of the chest is obtained. FINDINGS: Interval removal of the endotracheal and NG tube. Right-sided chest tube, central venous s mikayla and coaxial [place]-Bon catheter, median sternal drain remain in place. No evident pneumothorax. Lung volumes are low. Patient is post median sternotomy and atrial appendage clipping, aortic valve r eplacement. Interstitium is mildly increased, aeration is improved. Heart size may be accentuated by rotation. Difficult to exclude small effusion on the left. Patchy basilar density is noted. IMPRESSION: Interval extubation. Suspect some improvement in volume status, aeration. Additional fol low-up recommended.
[2017-12-05 08:29] LABS: Glucose,Whole Blood 157 mg/dL (75-99)
[2017-12-05] MEDS: ceFAZolin IN SWFI 2 GM/20 ML SYRINGE IVP SCH (08:30)
[2017-12-05] MEDS: HEPARIN SODIUM,PORCINE 5,000 UNIT/ML 1 ML VIAL SQ SCH ×2 (08:30→16:47)
[2017-12-05] MEDS: ASPIRIN 325 MG TAB PO SCH (08:37)
[2017-12-05] MEDS: ATORVASTATIN 40 MG TAB PO SCH (08:37)
[2017-12-05] MEDS: KETOROLAC 30 MG/ML 1 ML VIAL IVP SCH ×3 (08:37→20:45)
[2017-12-05] MEDS: MUPIROCIN 2% OINT 22 GM TUBE NASAL SCH ×2 (08:38→20:56)
[2017-12-05] MEDS ORDERED: METOPROLOL TARTRATE 12.5 MG TAB PO SCH (09:00)
[2017-12-05] MEDS ORDERED: PANTOPRAZOLE 40 MG/10 ML VIAL IVP SCH (09:00)
[2017-12-05] MEDS ORDERED: amLODIPine 5 MG TAB PO SCH (09:15)
[2017-12-05 09:25] LABS: Glucose,Whole Blood 167 mg/dL (75-99)
--- NOTE | 2017-12-05 09:26 | P.PN ---
Subjective Progress Note Date: 12/05/17 This is a 72-year-old male patient who underwent an aortic valve replacement and the patient is currently in the intensive care unit intubated on a mechanical ventilator and I was consulted for postoperative care. The patient is known to have aortic stenosis, hypertension, hyperlipidemia, diabetes mellitus, and bronchial asthma. He is an ex-smoker. The patient was having exertional dyspnea and 2 episodes of syncope. Cardiac catheterization was done and it showed a 30-40% disease involving the right coronary artery and the rest of the coronaries were all within normal limits. The preoperative valve area was 0.7 cm. Based on this, surgery was done. Currently the patient is intubated on a mechanical ventilator. He is sedated with Diprivan. I have switched this patient to an assist-control mode of ventilation at the rate of 12 , tidal volume of 580, FiO2 was dropped down to 80% and PEEP is at 5. The postop blood gases showed a pH of 7.33 with a pCO2 of 49 and pO2 of 130 and this was on the fourth of 100%. He is hemodynamically stable. He is currently on Cleviprex drip which is running at 8 mg an hour. The patient's cardiac index is at 2.5. Cardiac up as of 5.3. PA pressures are 35/21. The right- sided chest tube was placed without 30 mL and the mediastinal chest tube has put out 70 mL the patient's arrival from the operating room. Urine output is in order of 35 mL an hour. Chest x-ray shows postoperative findings with an accurate positioning of ET tube, Crowheart-Bon catheter and chest tube. There is possibly development of a left-sided pleural effusion. There is only vessel congestion/early edema based on chest x-ray findings. On 12/05/2017, I'm seeing this patient for a follow-up. The patient is postop day #1 following an aortic valve replacement surgery. The patient's surgery was successful. The patient was extubated within a few hours of arriving to the intensive care unit. This was a smooth extubation. Patient is currently on oxygen at 2 L/m nasal cannula and the pulse ox is 94%. The chest x-ray from this morning shows improvement in the volume status. Improvement in aeration. There is a right-sided chest tube and the mediastinal chest tube. No evidence of any air leak from the chest tubes. The output from the mediastinal chest tube has been around 510 mL over the past 18 hours and output from the right pleural chest tube is 380 mL over the past 18 hours. No evidence of any air leak. Today's hemoglobin is at 10.3. The patient remains on Cleviprex drip at 4 mg an hour. Lopressor was started a dose of 12.5 mg by mouth twice a day. He has sinus with a heart rate in the mid 60s and the patient is producing good amount of urine output. Renal function is stable. No other specific complaints. He is using incentive spirometer. Sternum stable clean and intact. Objective - Vital Signs Vital signs: Vital Signs Temp 97.9 F 12/05/17 04:00 Pulse 63 12/05/17 07:50 Resp 24 12/05/17 07:15 BP 106/51 12/05/17 07:15 Pulse Ox 96 12/05/17 07:40 Intake & Output 12/04/17 12/05/17 12/05/17 18:59 06:59 18:59 Intake Total 354.862 1712.864 235.194 Output Total 2385 1005 270 Balance -2021.211 223.864 -34.806 Weight 101.2 kg Intake: IV 318 818 197 0.9 Pressure Bag 36 108 27 Cardiac Output 50 110 20 Lactated Ringers 1,000 ml 200 600 150 @ 20 mls/hr IV .Q24H [facility] Rx#:[id number] Intake, IV Titration 45.789 410.864 38.194 Amount Clevidipine Butyrate 25 39.334 160.666 4 mg In Empty Bag 1 bag @ 1 MG/HR 2 mls/hr IV .Q24H [facility] Rx#:[id number] Insulin Regular 100 unit 6.455 50.198 34.194 In Sodium Chloride 0.9% 100 ml @ Per Protocol IV .Q0M [facility] Rx#:[id number] ceFAZolin 2,000 mg In 200 Sodium Chloride 0.9% 30 ml @ Per Protocol IVPB ONCE ONE Rx#:[id number] Output: Chest Tube Drainage 450 540 180 Mediastinal 340 240 140 Right Lateral Chest 110 300 40 Urine 735 465 90 Estimated Blood Loss 1200 Other: Voiding Method Indwelling Catheter Indwelling Catheter ABP, PAP, CO, CI - Last Documented Arterial Blood Pressure 118/49 Pulmonary Artery Pressure 35/12 Cardiac Output 7 Cardiac Index 3.3 - Exam Gen. appearance the patient is awake, comfortable no acute distress. Head exam was generally normal. There was no scleral icterus or corneal arcus. Mucous membranes were moist. Neck was supple and without jugular venous distension, thyromegaly, or carotid bruits. Carotids were easily palpable bilaterally. There was no adenopathy. The patient has a right IJ Cordis and a Crowheart-Bon catheter in place. Lungs sounds are diminished in lung bases bilaterally along with some bibasilar crackles. Cardiac exam revealed the PMI to be normally situated and sized. The rhythm was regular and no extrasystoles were noted during several minutes of auscultation. The first and second heart sounds were normal and physiologic splitting of the second heart sound was noted. There were no murmurs, rubs, clicks, or gallops. Sternum stable clean and intact. The patient is a mediastinal chest tube anteriorly and the right pleural chest tube. Output were discussed earlier. Abdominal exam revealed normal bowel sounds. The abdomen was soft, non-tender, and without masses, organomegaly, or appreciable enlargement of the abdominal aorta. Examination of the extremities revealed easily palpable radial, femoral and pedal pulses. There was no cyanosis, clubbing or edema. Examination of the skin revealed no evidence of significant rashes, suspicious appearing nevi or other concerning lesions. Neurologically the patient is awake and alert and there is no focal neurological deficits. - Labs CBC & Chem 7: 12/05/17 04:15 12/05/17 04:15 Labs: Abnormal Lab Results - Last 24 Hours (Table) 11/27/17 12/04/17 12/04/17 Range/Units 14:00 08:56 09:55 WBC (3.8-10.6) k/uL RBC (4.30-5.90) m/uL Hgb (13.0-17.5) gm/dL Hct (39.0-53.0) % Plt Count (150-450) k/uL Neutrophils # (1.3-7.7) k/uL Lymphocytes # (1.0-4.8) k/uL PT (9.0-12.0) sec INR (<1.2) APTT (22.0-30.0) sec ABG pH 7.32 L (7.35-7.45) ABG pCO2 48 H (35-45) mmHg ABG pO2 78 L (83-108) mmHg ABG HCO3 (21-25) mmol/L ABG Total CO2 26 H (19-24) mmol/L ABG O2 Saturation 98.0 H (94-97) % ABG Hematocrit (34.0-46.0) % ABG Sodium (135-146) mmol/L ABG Potassium (3.4-4.5) mmol/L ABG Ionized Calcium (4.5-5.3) mg/dL ABG Glucose 151 H 159 H (75-99) mg/dL ABG Lactic Acid (0.5-1.6) mmol/L Hemoglobin 11.1 L 11.8 L (13.0-17.5) gm/dL Sodium (137-145) mmol/L Chloride (98-107) mmol/L BUN (9-20) mg/dL Glucose (74-99) mg/dL POC Glucose (mg/dL) (75-99) mg/dL Calcium (8.4-10.2) mg/dL Alkaline Phosphatase (38-126) U/L Total Protein (6.3-8.2) g/dL Albumin (3.5-5.0) g/dL Arterial Blood Potassium (3.4-4.5) mmol/L Arterial Blood Glucose 151 H 159 H (75-99) mg/dL Crossmatch See Detail 12/04/17 12/04/17 12/04/17 Range/Units 10:39 11:08 11:43 WBC (3.8-10.6) k/uL RBC (4.30-5.90) m/uL Hgb (13.0-17.5) gm/dL Hct (39.0-53.0) % Plt Count (150-450) k/uL Neutrophils # (1.3-7.7) k/uL Lymphocytes # (1.0-4.8) k/uL PT (9.0-12.0) sec INR (<1.2) APTT (22.0-30.0) sec ABG pH 7.34 L (7.35-7.45) ABG pCO2 50 H 46 H (35-45) mmHg ABG pO2 223 H 267 H 286 H (83-108) mmHg ABG HCO3 27 H 26 H (21-25) mmol/L ABG Total CO2 29 H 27 H 27 H (19-24) mmol/L ABG O2 Saturation 99.8 H 100.0 H 99.9 H (94-97) % ABG Hematocrit 32 L 29 L 29 L (34.0-46.0) % ABG Sodium 133 L 134 L (135-146) mmol/L ABG Potassium 5.6 H 5.9 H 6.0 H (3.4-4.5) mmol/L ABG Ionized Calcium 4.4 L 4.4 L 4.4 L (4.5-5.3) mg/dL ABG Glucose 206 H 221 H 215 H (75-99) mg/dL ABG Lactic Acid 1.8 H (0.5-1.6) mmol/L Hemoglobin 10.3 L 9.3 L 9.6 L (13.0-17.5) gm/dL Sodium (137-145) mmol/L Chloride (98-107) mmol/L BUN (9-20) mg/dL Glucose (74-99) mg/dL POC Glucose (mg/dL) (75-99) mg/dL Calcium (8.4-10.2) mg/dL Alkaline Phosphatase (38-126) U/L Total Protein (6.3-8.2) g/dL Albumin (3.5-5.0) g/dL Arterial Blood Potassium 5.6 H 5.9 H 6.0 H (3.4-4.5) mmol/L Arterial Blood Glucose 206 H 221 H 215 H (75-99) mg/dL Crossmatch 12/04/17 12/04/17 12/04/17 Range/Units 12:30 12:54 13:35 WBC (3.8-10.6) k/uL RBC 3.07 L (4.30-5.90) m/uL Hgb 9.3 L D (13.0-17.5) gm/dL Hct 28.0 L (39.0-53.0) % Plt Count 113 L (150-450) k/uL Neutrophils # (1.3-7.7) k/uL Lymphocytes # 0.9 L (1.0-4.8) k/uL PT (9.0-12.0) sec INR (<1.2) APTT (22.0-30.0) sec ABG pH (7.35-7.45) ABG pCO2 (35-45) mmHg ABG pO2 171 H (83-108) mmHg ABG HCO3 26 H (21-25) mmol/L ABG Total CO2 27 H (19-24) mmol/L ABG O2 Saturation 98.5 H 99.7 H (94-97) % ABG Hematocrit 30 L 29 L (34.0-46.0) % ABG Sodium (135-146) mmol/L ABG Potassium (3.4-4.5) mmol/L ABG Ionized Calcium 4.3 L 4.2 L (4.5-5.3) mg/dL ABG Glucose 156 H 144 H (75-99) mg/dL ABG Lactic Acid 2.0 H 1.7 H (0.5-1.6) mmol/L Hemoglobin 9.7 L 9.6 L (13.0-17.5) gm/dL Sodium (137-145) mmol/L Chloride (98-107) mmol/L BUN (9-20) mg/dL Glucose (74-99) mg/dL POC Glucose (mg/dL) (75-99) mg/dL Calcium (8.4-10.2) mg/dL Alkaline Phosphatase (38-126) U/L Total Protein (6.3-8.2) g/dL Albumin (3.5-5.0) g/dL Arterial Blood Potassium (3.4-4.5) mmol/L Arterial Blood Glucose 156 H 144 H (75-99) mg/dL Crossmatch 12/04/17 12/04/17 12/04/17 Range/Units 13:35 13:35 13:39 WBC (3.8-10.6) k/uL RBC (4.30-5.90) m/uL Hgb (13.0-17.5) gm/dL Hct (39.0-53.0) % Plt Count (150-450) k/uL Neutrophils # (1.3-7.7) k/uL Lymphocytes # (1.0-4.8) k/uL PT 13.5 H (9.0-12.0) sec INR 1.4 H (<1.2) APTT 43.1 H (22.0-30.0) sec ABG pH (7.35-7.45) ABG pCO2 (35-45) mmHg ABG pO2 (83-108) mmHg ABG HCO3 (21-25) mmol/L ABG Total CO2 (19-24) mmol/L ABG O2 Saturation (94-97) % ABG Hematocrit (34.0-46.0) % ABG Sodium (135-146) mmol/L ABG Potassium (3.4-4.5) mmol/L ABG Ionized Calcium (4.5-5.3) mg/dL ABG Glucose (75-99) mg/dL ABG Lactic Acid (0.5-1.6) mmol/L Hemoglobin (13.0-17.5) gm/dL Sodium (137-145) mmol/L Chloride 108 H (98-107) mmol/L BUN (9-20) mg/dL Glucose 117 H (74-99) mg/dL POC Glucose (mg/dL) 126 H (75-99) mg/dL Calcium 7.8 L (8.4-10.2) mg/dL Alkaline Phosphatase 30 L (38-126) U/L Total Protein 4.7 L (6.3-8.2) g/dL Albumin 3.1 L (3.5-5.0) g/dL Arterial Blood Potassium (3.4-4.5) mmol/L Arterial Blood Glucose (75-99) mg/dL Crossmatch 12/04/17 12/04/17 12/04/17 Range/Units 14:10 14:17 15:13 WBC (3.8-10.6) k/uL RBC (4.30-5.90) m/uL Hgb (13.0-17.5) gm/dL Hct (39.0-53.0) % Plt Count (150-450) k/uL Neutrophils # (1.3-7.7) k/uL Lymphocytes # (1.0-4.8) k/uL PT (9.0-12.0) sec INR (<1.2) APTT (22.0-30.0) sec ABG pH 7.34 L (7.35-7.45) ABG pCO2 49 H (35-45) mmHg ABG pO2 130 H (83-108) mmHg ABG HCO3 26 H (21-25) mmol/L ABG Total CO2 28 H (19-24) mmol/L ABG O2 Saturation 99.2 H (94-97) % ABG Hematocrit (34.0-46.0) % ABG Sodium (135-146) mmol/L ABG Potassium (3.4-4.5) mmol/L ABG Ionized Calcium (4.5-5.3) mg/dL ABG Glucose (75-99) mg/dL ABG Lactic Acid (0.5-1.6) mmol/L Hemoglobin (13.0-17.5) gm/dL Sodium (137-145) mmol/L Chloride (98-107) mmol/L BUN (9-20) mg/dL Glucose (74-99) mg/dL POC Glucose (mg/dL) 116 H 128 H (75-99) mg/dL Calcium (8.4-10.2) mg/dL Alkaline Phosphatase (38-126) U/L Total Protein (6.3-8.2) g/dL Albumin (3.5-5.0) g/dL Arterial Blood Potassium (3.4-4.5) mmol/L Arterial Blood Glucose (75-99) mg/dL Crossmatch 12/04/17 12/04/17 12/04/17 Range/Units 16:33 16:50 17:22 WBC (3.8-10.6) k/uL RBC (4.30-5.90) m/uL Hgb (13.0-17.5) gm/dL Hct (39.0-53.0) % Plt Count (150-450) k/uL Neutrophils # (1.3-7.7) k/uL Lymphocytes # (1.0-4.8) k/uL PT (9.0-12.0) sec INR (<1.2) APTT (22.0-30.0) sec ABG pH (7.35-7.45) ABG pCO2 (35-45) mmHg ABG pO2 61 L (83-108) mmHg ABG HCO3 (21-25) mmol/L ABG Total CO2 26 H (19-24) mmol/L ABG O2 Saturation 92.1 L (94-97) % ABG Hematocrit (34.0-46.0) % ABG Sodium (135-146) mmol/L ABG Potassium (3.4-4.5) mmol/L ABG Ionized Calcium (4.5-5.3) mg/dL ABG Glucose (75-99) mg/dL ABG Lactic Acid (0.5-1.6) mmol/L Hemoglobin (13.0-17.5) gm/dL Sodium (137-145) mmol/L Chloride (98-107) mmol/L BUN (9-20) mg/dL Glucose (74-99) mg/dL POC Glucose (mg/dL) 157 H 170 H (75-99) mg/dL Calcium (8.4-10.2) mg/dL Alkaline Phosphatase (38-126) U/L Total Protein (6.3-8.2) g/dL Albumin (3.5-5.0) g/dL Arterial Blood Potassium (3.4-4.5) mmol/L Arterial Blood Glucose (75-99) mg/dL Crossmatch 12/04/17 12/04/17 12/04/17 Range/Units 18:15 18:30 19:05 WBC (3.8-10.6) k/uL RBC 3.37 L (4.30-5.90) m/uL Hgb 10.3 L (13.0-17.5) gm/dL Hct 30.6 L (39.0-53.0) % Plt Count 121 L (150-450) k/uL Neutrophils # 8.0 H (1.3-7.7) k/uL Lymphocytes # 0.5 L (1.0-4.8) k/uL PT (9.0-12.0) sec INR (<1.2) APTT (22.0-30.0) sec ABG pH (7.35-7.45) ABG pCO2 (35-45) mmHg ABG pO2 (83-108) mmHg ABG HCO3 (21-25) mmol/L ABG Total CO2 (19-24) mmol/L ABG O2 Saturation (94-97) % ABG Hematocrit (34.0-46.0) % ABG Sodium (135-146) mmol/L ABG Potassium (3.4-4.5) mmol/L ABG Ionized Calcium (4.5-5.3) mg/dL ABG Glucose (75-99) mg/dL ABG Lactic Acid (0.5-1.6) mmol/L Hemoglobin (13.0-17.5) gm/dL Sodium (137-145) mmol/L Chloride (98-107) mmol/L BUN (9-20) mg/dL Glucose (74-99) mg/dL POC Glucose (mg/dL) 168 H 167 H (75-99) mg/dL Calcium (8.4-10.2) mg/dL Alkaline Phosphatase (38-126) U/L Total Protein (6.3-8.2) g/dL Albumin (3.5-5.0) g/dL Arterial Blood Potassium (3.4-4.5) mmol/L Arterial Blood Glucose (75-99) mg/dL Crossmatch 12/04/17 12/04/17 12/04/17 Range/Units 20:19 21:00 21:58 WBC (3.8-10.6) k/uL RBC (4.30-5.90) m/uL Hgb (13.0-17.5) gm/dL Hct (39.0-53.0) % Plt Count (150-450) k/uL Neutrophils # (1.3-7.7) k/uL Lymphocytes # (1.0-4.8) k/uL PT (9.0-12.0) sec INR (<1.2) APTT (22.0-30.0) sec ABG pH (7.35-7.45) ABG pCO2 (35-45) mmHg ABG pO2 (83-108) mmHg ABG HCO3 (21-25) mmol/L ABG Total CO2 (19-24) mmol/L ABG O2 Saturation (94-97) % ABG Hematocrit (34.0-46.0) % ABG Sodium (135-146) mmol/L ABG Potassium (3.4-4.5) mmol/L ABG Ionized Calcium (4.5-5.3) mg/dL ABG Glucose (75-99) mg/dL ABG Lactic Acid (0.5-1.6) mmol/L Hemoglobin (13.0-17.5) gm/dL Sodium (137-145) mmol/L Chloride (98-107) mmol/L BUN (9-20) mg/dL Glucose (74-99) mg/dL POC Glucose (mg/dL) 159 H 155 H 148 H (75-99) mg/dL Calcium (8.4-10.2) mg/dL Alkaline Phosphatase (38-126) U/L Total Protein (6.3-8.2) g/dL Albumin (3.5-5.0) g/dL Arterial Blood Potassium (3.4-4.5) mmol/L Arterial Blood Glucose (75-99) mg/dL Crossmatch 12/04/17 12/05/17 12/05/17 Range/Units 22:59 00:11 00:55 WBC (3.8-10.6) k/uL RBC (4.30-5.90) m/uL Hgb (13.0-17.5) gm/dL Hct (39.0-53.0) % Plt Count (150-450) k/uL Neutrophils # (1.3-7.7) k/uL Lymphocytes # (1.0-4.8) k/uL PT (9.0-12.0) sec INR (<1.2) APTT (22.0-30.0) sec ABG pH (7.35-7.45) ABG pCO2 (35-45) mmHg ABG pO2 (83-108) mmHg ABG HCO3 (21-25) mmol/L ABG Total CO2 (19-24) mmol/L ABG O2 Saturation (94-97) % ABG Hematocrit (34.0-46.0) % ABG Sodium (135-146) mmol/L ABG Potassium (3.4-4.5) mmol/L ABG Ionized Calcium (4.5-5.3) mg/dL ABG Glucose (75-99) mg/dL ABG Lactic Acid (0.5-1.6) mmol/L Hemoglobin (13.0-17.5) gm/dL Sodium (137-145) mmol/L Chloride (98-107) mmol/L BUN (9-20) mg/dL Glucose (74-99) mg/dL POC Glucose (mg/dL) 154 H 155 H 147 H (75-99) mg/dL Calcium (8.4-10.2) mg/dL Alkaline Phosphatase (38-126) U/L Total Protein (6.3-8.2) g/dL Albumin (3.5-5.0) g/dL Arterial Blood Potassium (3.4-4.5) mmol/L Arterial Blood Glucose (75-99) mg/dL Crossmatch 12/05/17 12/05/17 12/05/17 Range/Units 02:03 03:07 04:15 WBC 11.1 H (3.8-10.6) k/uL RBC 3.28 L (4.30-5.90) m/uL Hgb 10.3 L (13.0-17.5) gm/dL Hct 30.1 L (39.0-53.0) % Plt Count 131 L (150-450) k/uL Neutrophils # 9.7 H (1.3-7.7) k/uL Lymphocytes # 0.5 L (1.0-4.8) k/uL PT (9.0-12.0) sec INR (<1.2) APTT (22.0-30.0) sec ABG pH (7.35-7.45) ABG pCO2 (35-45) mmHg ABG pO2 (83-108) mmHg ABG HCO3 (21-25) mmol/L ABG Total CO2 (19-24) mmol/L ABG O2 Saturation (94-97) % ABG Hematocrit (34.0-46.0) % ABG Sodium (135-146) mmol/L ABG Potassium (3.4-4.5) mmol/L ABG Ionized Calcium (4.5-5.3) mg/dL ABG Glucose (75-99) mg/dL ABG Lactic Acid (0.5-1.6) mmol/L Hemoglobin (13.0-17.5) gm/dL Sodium (137-145) mmol/L Chloride (98-107) mmol/L BUN (9-20) mg/dL Glucose (74-99) mg/dL POC Glucose (mg/dL) 140 H 133 H (75-99) mg/dL Calcium (8.4-10.2) mg/dL Alkaline Phosphatase (38-126) U/L Total Protein (6.3-8.2) g/dL Albumin (3.5-5.0) g/dL Arterial Blood Potassium (3.4-4.5) mmol/L Arterial Blood Glucose (75-99) mg/dL Crossmatch 12/05/17 12/05/17 12/05/17 Range/Units 04:15 04:15 04:17 WBC (3.8-10.6) k/uL RBC (4.30-5.90) m/uL Hgb (13.0-17.5) gm/dL Hct (39.0-53.0) % Plt Count (150-450) k/uL Neutrophils # (1.3-7.7) k/uL Lymphocytes # (1.0-4.8) k/uL PT (9.0-12.0) sec INR 1.2 H (<1.2) APTT (22.0-30.0) sec ABG pH (7.35-7.45) ABG pCO2 (35-45) mmHg ABG pO2 (83-108) mmHg ABG HCO3 (21-25) mmol/L ABG Total CO2 (19-24) mmol/L ABG O2 Saturation (94-97) % ABG Hematocrit (34.0-46.0) % ABG Sodium (135-146) mmol/L ABG Potassium (3.4-4.5) mmol/L ABG Ionized Calcium (4.5-5.3) mg/dL ABG Glucose (75-99) mg/dL ABG Lactic Acid (0.5-1.6) mmol/L Hemoglobin (13.0-17.5) gm/dL Sodium 135 L (137-145) mmol/L Chloride (98-107) mmol/L BUN 21 H (9-20) mg/dL Glucose 121 H (74-99) mg/dL POC Glucose (mg/dL) 131 H (75-99) mg/dL Calcium (8.4-10.2) mg/dL Alkaline Phosphatase 34 L (38-126) U/L Total Protein 5.3 L (6.3-8.2) g/dL Albumin (3.5-5.0) g/dL Arterial Blood Potassium (3.4-4.5) mmol/L Arterial Blood Glucose (75-99) mg/dL Crossmatch 12/05/17 12/05/17 12/05/17 Range/Units 06:12 07:02 08:28 WBC (3.8-10.6) k/uL RBC (4.30-5.90) m/uL Hgb (13.0-17.5) gm/dL Hct (39.0-53.0) % Plt Count (150-450) k/uL Neutrophils # (1.3-7.7) k/uL Lymphocytes # (1.0-4.8) k/uL PT (9.0-12.0) sec INR (<1.2) APTT (22.0-30.0) sec ABG pH (7.35-7.45) ABG pCO2 (35-45) mmHg ABG pO2 (83-108) mmHg ABG HCO3 (21-25) mmol/L ABG Total CO2 (19-24) mmol/L ABG O2 Saturation (94-97) % ABG Hematocrit (34.0-46.0) % ABG Sodium (135-146) mmol/L ABG Potassium (3.4-4.5) mmol/L ABG Ionized Calcium (4.5-5.3) mg/dL ABG Glucose (75-99) mg/dL ABG Lactic Acid (0.5-1.6) mmol/L Hemoglobin (13.0-17.5) gm/dL Sodium (137-145) mmol/L Chloride (98-107) mmol/L BUN (9-20) mg/dL Glucose (74-99) mg/dL POC Glucose (mg/dL) 129 H 123 H 157 H (75-99) mg/dL Calcium (8.4-10.2) mg/dL Alkaline Phosphatase (38-126) U/L Total Protein (6.3-8.2) g/dL Albumin (3.5-5.0) g/dL Arterial Blood Potassium (3.4-4.5) mmol/L Arterial Blood Glucose (75-99) mg/dL Crossmatch Assessment and Plan Plan: Assessment 1 severe aortic stenosis and the patient is currently postop aortic valve replacement, postop day #1. Hemodynamically stable. Still on Cleviprex for blood pressure control 2 post thoracotomy ventilator management. Patient was extubated without any major difficulties and the patient is currently on 2 L of oxygen by nasal cannula 3 nonocclusive coronary artery disease based on a preop cardiac catheterization 4 diabetes mellitus, currently on insulin drip for blood sugar control 5 hypertension, history of, maintained on a combination of antihypertensive medication including Norvasc, hydralazine, valsartan/hydrochlorothiazide 6 hyperlipidemia 7 anemia, and expected outcome of thoracic surgery and cardiac surgery 8 BPH, currently has a Hargrove catheter in place 9 bronchial asthma Plan Patient is hemodynamically stable. Using the incentive spirometer. On 2 L oxygen by nasal cannula. Sternum stable clean and intact. Monitor the output from the chest tube. Start metoprolol 12.5 mg by mouth twice a day. Restart Norvasc 5 mg by mouth twice a day. Wean off the Cleviprex drip. The patient ICU for now. Keep the insulin drip for another 24 hours. We'll continue to follow.
[2017-12-05 10:13] VITALS: BMI 32.0
--- NOTE | 2017-12-05 10:45 | CONS ---
CONSULTATION DATE OF SERVICE: 12/05/2017. HISTORY: Mr. Pereira is a 72-year-old gentleman who is seen for cardiac evaluation. This patient's previous medical records were reviewed. This patient recently was having exertional shortness of breath with some dizziness. The patient underwent a cardiac catheterization and was found to have a severe aortic stenosis and mild coronary artery disease. Patient underwent aortic valve replacement yesterday. He is sitting comfortably at the bedside joy and he is extubated. The patient has a history of diabetes, hypertension, and hyperlipidemia. PAST MEDICAL HISTORY: Includes a history of skin cancer, diabetes, hypertension, hyperlipidemia, benign right breast tumor removed. HOME MEDICATIONS: 1. Baby aspirin once a day. 2. Cardura. 3. Proscar. 4. Amaryl. 5. Singular. 6. Valsartan. 7. Diovan HCT once a day. 8. Vitamin E. 9. Amlodipine 5 mg daily. 10.Lasix 40 mg daily. 11.Lipitor 40 mg daily. 12.Hydralazine 25 mg b.i.d. 13.Actos once a day. PHYSICAL EXAMINATION: Physical examination at present reveals the patient's blood pressure is 160/51 mmHg. Head ENT examination is negative. Neck is supple. There is no increase in jugular venous pressure. First and second heart sounds are heard. Lungs reveal bilateral diminished air entry. Extremities, there is no evidence of any leg edema. MEDICATIONS: Medications are reviewed. The patient currently is on Cleviprex for control of the blood pressures. LABORATORY DATA: Electrolytes are normal. Creatinine 1.0. Chest x-ray does not show any significant failure. IMPRESSION: 1. Status post aortic valve replacement. 2. Coronary artery bypass surgery. Patient is doing fairly well and hemodynamically stable. No dysrhythmias are noted. Continue the current medications. MMODL / IJN: [id number] /
[2017-12-05 11:05] LABS: Glucose,Whole Blood 136 mg/dL (75-99)
[2017-12-05] MEDS: hydrALAZINE HCL 25 MG TAB PO SCH ×3 (11:06→16:47)
[2017-12-05 12:05] LABS: Glucose,Whole Blood 102 mg/dL (75-99)
[2017-12-05] MEDS ORDERED: BISACODYL 10 MG SUPP RECTAL PRN (12:47)
--- NOTE | 2017-12-05 13:03 | P.PN ---
Subjective Progress Note Date: 12/05/17 Principal diagnosis: Severe calcific aortic valve stenosis. Mild aortic valve regurgitation. Mild to moderate mitral valve regurgitation. Preserved left ventricular function with preoperative EF 50-55%. Diabetes with preoperative hemoglobin A1c 7.0%. Hyperlipidemia. Hypertension. Previous tobacco dependence. Mild COPD with preoperative FEV1 70% of predicted. History of syncope. History of previous non-STEMI in October of this year, RCA stenosis 30-40%. Obesity. POD #1 aortic valve replacement using a 23 mm bovine bioprosthesis, Inspiris. Exclusion of the left atrial appendage using a 35 mm AtriClip. Intraoperative transesophageal echocardiogram and epi-aortic scanning. The patient is currently sitting up in the recliner in no acute distress. States pain is well-controlled with added Toradol. Denies shortness of breath. Was successfully extubated last night at 17:05. Hemodynamically stable, currently on no inotropes or pressors. Objective - Vital Signs Vital signs: Vital Signs Temp 97.6 F 12/05/17 08:00 Pulse 70 12/05/17 11:54 Resp 24 12/05/17 11:00 BP 106/51 12/05/17 07:15 Pulse Ox 95 12/05/17 11:00 Intake & Output 12/04/17 12/05/17 12/05/17 18:59 06:59 18:59 Intake Total 346.373 7263.864 385.059 Output Total 2385 1005 320 Balance -1.211 223.864 65.059 Weight 101.2 kg 101.2 kg Intake: IV 318 818 315 0.9 Pressure Bag 36 108 45 Cardiac Output 50 110 20 Lactated Ringers 1,000 ml 200 600 250 @ 20 mls/hr IV .Q24H [facility] Rx#:[id number] Intake, IV Titration 45.789 410.864 70.059 Amount Clevidipine Butyrate 25 39.334 160.666 12 mg In Empty Bag 1 bag @ 1 MG/HR 2 mls/hr IV .Q24H [facility] Rx#:[id number] Insulin Regular 100 unit 6.455 50.198 58.059 In Sodium Chloride 0.9% 100 ml @ Per Protocol IV .Q0M [facility] Rx#:[id number] ceFAZolin 2,000 mg In 200 Sodium Chloride 0.9% 30 ml @ Per Protocol IVPB ONCE ONE Rx#:[id number] Output: Chest Tube Drainage 450 540 230 Mediastinal 340 240 180 Right Lateral Chest 110 300 50 Urine 735 465 90 Estimated Blood Loss 1200 Other: Voiding Method Indwelling Catheter Indwelling Catheter Indwelling Catheter ABP, PAP, CO, CI - Last Documented Arterial Blood Pressure 135/48 Pulmonary Artery Pressure 31/13 Cardiac Output 6.7 Cardiac Index 3.3 - Constitutional General appearance: Present: cooperative, no acute distress, obese - Respiratory Details: Lungs sounds diminished bilaterally. Respirations even, nonlabored. Currently on 2 L nasal cannula with oxygen saturation 95%. Able to achieve 1000 mL on his incentive spirometry. Effective cough. Mediastinal chest tube to continuous wall suction, 200 mL serosanguineous drainage overnight, 650 mL since surgery. Right pleural chest tube to continuous wall suction, 210 mL serosanguineous drainage overnight, 450 mL since surgery. No air leaks present. - Cardiovascular Details: S1, S2 present. Regular rate and rhythm, sinus rhythm on telemetry. Sternum stable. A/V epicardial pacemaker wires present, connected to generator, AAI mode with backup rate 60 bpm. Palpable peripheral pulses bilaterally. No edema present. No calf pain or tenderness noted. Right internal jugular [place]/ [place], right radial arterial line present. Last CO/CI 7.0/3.3 on no inotropes. Heart hugger in place with patient demonstrating appropriate use. Antiembolism stockings, SCDs present. - Gastrointestinal Gastrointestinal Comment(s): Abdomen soft, nontender, nondistended. Hypoactive bowel sounds present 4 quadrants. Tolerating clear liquid diet. No flatus yet. - Genitourinary Genitourinary Comment(s): [place] was present this morning draining clear, yellow urine. Output overnight was 10-75 mL per hour, mostly 30-35 mL. Patient complained of wanting H[place] removed which was done this morning. - Integumentary Integumentary Comment(s): Skin is warm and dry with evidence of good perfusion. Anterior chest incision well approximated and covered with dry intact dressing. - Neurologic Neurologic: Present: CNII-XII intact - Musculoskeletal Musculoskeletal: Present: gait normal, strength equal bilaterally - Psychiatric Psychiatric: Present: A&O x's 3, appropriate affect, intact judgment & insight - Allied health notes Allied health notes reviewed: nursing - Labs CBC & Chem 7: 08/10/18 04:15 12/05/17 04:15 Labs: Abnormal Lab Results - Last 24 Hours (Table) 11/27/17 12/04/17 12/04/17 Range/Units 14:00 12:54 13:35 WBC (3.8-10.6) k/uL RBC 3.07 L (4.30-5.90) m/uL Hgb 9.3 L D (13.0-17.5) gm/dL Hct 28.0 L (39.0-53.0) % Plt Count 113 L (150-450) k/uL Neutrophils # (1.3-7.7) k/uL Lymphocytes # 0.9 L (1.0-4.8) k/uL PT (9.0-12.0) sec INR (<1.2) APTT (22.0-30.0) sec ABG pH (7.35-7.45) ABG pCO2 (35-45) mmHg ABG pO2 171 H (83-108) mmHg ABG HCO3 26 H (21-25) mmol/L ABG Total CO2 27 H (19-24) mmol/L ABG O2 Saturation 99.7 H (94-97) % ABG Hematocrit 29 L (34.0-46.0) % ABG Ionized Calcium 4.2 L (4.5-5.3) mg/dL ABG Glucose 144 H (75-99) mg/dL ABG Lactic Acid 1.7 H (0.5-1.6) mmol/L Hemoglobin 9.6 L (13.0-17.5) gm/dL Sodium (137-145) mmol/L Chloride (98-107) mmol/L BUN (9-20) mg/dL Glucose (74-99) mg/dL POC Glucose (mg/dL) (75-99) mg/dL Calcium (8.4-10.2) mg/dL Alkaline Phosphatase (38-126) U/L Total Protein (6.3-8.2) g/dL Albumin (3.5-5.0) g/dL Arterial Blood Glucose 144 H (75-99) mg/dL Crossmatch See Detail 12/04/17 12/04/17 12/04/17 Range/Units 13:35 13:35 13:39 WBC (3.8-10.6) k/uL RBC (4.30-5.90) m/uL Hgb (13.0-17.5) gm/dL Hct (39.0-53.0) % Plt Count (150-450) k/uL Neutrophils # (1.3-7.7) k/uL Lymphocytes # (1.0-4.8) k/uL PT 13.5 H (9.0-12.0) sec INR 1.4 H (<1.2) APTT 43.1 H (22.0-30.0) sec ABG pH (7.35-7.45) ABG pCO2 (35-45) mmHg ABG pO2 (83-108) mmHg ABG HCO3 (21-25) mmol/L ABG Total CO2 (19-24) mmol/L ABG O2 Saturation (94-97) % ABG Hematocrit (34.0-46.0) % ABG Ionized Calcium (4.5-5.3) mg/dL ABG Glucose (75-99) mg/dL ABG Lactic Acid (0.5-1.6) mmol/L Hemoglobin (13.0-17.5) gm/dL Sodium (137-145) mmol/L Chloride 108 H (98-107) mmol/L BUN (9-20) mg/dL Glucose 117 H (74-99) mg/dL POC Glucose (mg/dL) 126 H (75-99) mg/dL Calcium 7.8 L (8.4-10.2) mg/dL Alkaline Phosphatase 30 L (38-126) U/L Total Protein 4.7 L (6.3-8.2) g/dL Albumin 3.1 L (3.5-5.0) g/dL Arterial Blood Glucose (75-99) mg/dL Crossmatch 12/04/17 12/04/17 12/04/17 Range/Units 14:10 14:17 15:13 WBC (3.8-10.6) k/uL RBC (4.30-5.90) m/uL Hgb (13.0-17.5) gm/dL Hct (39.0-53.0) % Plt Count (150-450) k/uL Neutrophils # (1.3-7.7) k/uL Lymphocytes # (1.0-4.8) k/uL PT (9.0-12.0) sec INR (<1.2) APTT (22.0-30.0) sec ABG pH 7.34 L (7.35-7.45) ABG pCO2 49 H (35-45) mmHg ABG pO2 130 H (83-108) mmHg ABG HCO3 26 H (21-25) mmol/L ABG Total CO2 28 H (19-24) mmol/L ABG O2 Saturation 99.2 H (94-97) % ABG Hematocrit (34.0-46.0) % ABG Ionized Calcium (4.5-5.3) mg/dL ABG Glucose (75-99) mg/dL ABG Lactic Acid (0.5-1.6) mmol/L Hemoglobin (13.0-17.5) gm/dL Sodium (137-145) mmol/L Chloride (98-107) mmol/L BUN (9-20) mg/dL Glucose (74-99) mg/dL POC Glucose (mg/dL) 116 H 128 H (75-99) mg/dL Calcium (8.4-10.2) mg/dL Alkaline Phosphatase (38-126) U/L Total Protein (6.3-8.2) g/dL Albumin (3.5-5.0) g/dL Arterial Blood Glucose (75-99) mg/dL Crossmatch 12/04/17 12/04/17 12/04/17 Range/Units 16:33 16:50 17:22 WBC (3.8-10.6) k/uL RBC (4.30-5.90) m/uL Hgb (13.0-17.5) gm/dL Hct (39.0-53.0) % Plt Count (150-450) k/uL Neutrophils # (1.3-7.7) k/uL Lymphocytes # (1.0-4.8) k/uL PT (9.0-12.0) sec INR (<1.2) APTT (22.0-30.0) sec ABG pH (7.35-7.45) ABG pCO2 (35-45) mmHg ABG pO2 61 L (83-108) mmHg ABG HCO3 (21-25) mmol/L ABG Total CO2 26 H (19-24) mmol/L ABG O2 Saturation 92.1 L (94-97) % ABG Hematocrit (34.0-46.0) % ABG Ionized Calcium (4.5-5.3) mg/dL ABG Glucose (75-99) mg/dL ABG Lactic Acid (0.5-1.6) mmol/L Hemoglobin (13.0-17.5) gm/dL Sodium (137-145) mmol/L Chloride (98-107) mmol/L BUN (9-20) mg/dL Glucose (74-99) mg/dL POC Glucose (mg/dL) 157 H 170 H (75-99) mg/dL Calcium (8.4-10.2) mg/dL Alkaline Phosphatase (38-126) U/L Total Protein (6.3-8.2) g/dL Albumin (3.5-5.0) g/dL Arterial Blood Glucose (75-99) mg/dL Crossmatch 12/04/17 12/04/17 12/04/17 Range/Units 18:15 18:30 19:05 WBC (3.8-10.6) k/uL RBC 3.37 L (4.30-5.90) m/uL Hgb 10.3 L (13.0-17.5) gm/dL Hct 30.6 L (39.0-53.0) % Plt Count 121 L (150-450) k/uL Neutrophils # 8.0 H (1.3-7.7) k/uL Lymphocytes # 0.5 L (1.0-4.8) k/uL PT (9.0-12.0) sec INR (<1.2) APTT (22.0-30.0) sec ABG pH (7.35-7.45) ABG pCO2 (35-45) mmHg ABG pO2 (83-108) mmHg ABG HCO3 (21-25) mmol/L ABG Total CO2 (19-24) mmol/L ABG O2 Saturation (94-97) % ABG Hematocrit (34.0-46.0) % ABG Ionized Calcium (4.5-5.3) mg/dL ABG Glucose (75-99) mg/dL ABG Lactic Acid (0.5-1.6) mmol/L Hemoglobin (13.0-17.5) gm/dL Sodium (137-145) mmol/L Chloride (98-107) mmol/L BUN (9-20) mg/dL Glucose (74-99) mg/dL POC Glucose (mg/dL) 168 H 167 H (75-99) mg/dL Calcium (8.4-10.2) mg/dL Alkaline Phosphatase (38-126) U/L Total Protein (6.3-8.2) g/dL Albumin (3.5-5.0) g/dL Arterial Blood Glucose (75-99) mg/dL Crossmatch 12/04/17 12/04/17 12/04/17 Range/Units 20:19 21:00 21:58 WBC (3.8-10.6) k/uL RBC (4.30-5.90) m/uL Hgb (13.0-17.5) gm/dL Hct (39.0-53.0) % Plt Count (150-450) k/uL Neutrophils # (1.3-7.7) k/uL Lymphocytes # (1.0-4.8) k/uL PT (9.0-12.0) sec INR (<1.2) APTT (22.0-30.0) sec ABG pH (7.35-7.45) ABG pCO2 (35-45) mmHg ABG pO2 (83-108) mmHg ABG HCO3 (21-25) mmol/L ABG Total CO2 (19-24) mmol/L ABG O2 Saturation (94-97) % ABG Hematocrit (34.0-46.0) % ABG Ionized Calcium (4.5-5.3) mg/dL ABG Glucose (75-99) mg/dL ABG Lactic Acid (0.5-1.6) mmol/L Hemoglobin (13.0-17.5) gm/dL Sodium (137-145) mmol/L Chloride (98-107) mmol/L BUN (9-20) mg/dL Glucose (74-99) mg/dL POC Glucose (mg/dL) 159 H 155 H 148 H (75-99) mg/dL Calcium (8.4-10.2) mg/dL Alkaline Phosphatase (38-126) U/L Total Protein (6.3-8.2) g/dL Albumin (3.5-5.0) g/dL Arterial Blood Glucose (75-99) mg/dL Crossmatch 12/04/17 12/05/17 12/05/17 Range/Units 22:59 00:11 00:55 WBC (3.8-10.6) k/uL RBC (4.30-5.90) m/uL Hgb (13.0-17.5) gm/dL Hct (39.0-53.0) % Plt Count (150-450) k/uL Neutrophils # (1.3-7.7) k/uL Lymphocytes # (1.0-4.8) k/uL PT (9.0-12.0) sec INR (<1.2) APTT (22.0-30.0) sec ABG pH (7.35-7.45) ABG pCO2 (35-45) mmHg ABG pO2 (83-108) mmHg ABG HCO3 (21-25) mmol/L ABG Total CO2 (19-24) mmol/L ABG O2 Saturation (94-97) % ABG Hematocrit (34.0-46.0) % ABG Ionized Calcium (4.5-5.3) mg/dL ABG Glucose (75-99) mg/dL ABG Lactic Acid (0.5-1.6) mmol/L Hemoglobin (13.0-17.5) gm/dL Sodium (137-145) mmol/L Chloride (98-107) mmol/L BUN (9-20) mg/dL Glucose (74-99) mg/dL POC Glucose (mg/dL) 154 H 155 H 147 H (75-99) mg/dL Calcium (8.4-10.2) mg/dL Alkaline Phosphatase (38-126) U/L Total Protein (6.3-8.2) g/dL Albumin (3.5-5.0) g/dL Arterial Blood Glucose (75-99) mg/dL Crossmatch 12/05/17 12/05/17 12/05/17 Range/Units 02:03 03:07 04:15 WBC 11.1 H (3.8-10.6) k/uL RBC 3.28 L (4.30-5.90) m/uL Hgb 10.3 L (13.0-17.5) gm/dL Hct 30.1 L (39.0-53.0) % Plt Count 131 L (150-450) k/uL Neutrophils # 9.7 H (1.3-7.7) k/uL Lymphocytes # 0.5 L (1.0-4.8) k/uL PT (9.0-12.0) sec INR (<1.2) APTT (22.0-30.0) sec ABG pH (7.35-7.45) ABG pCO2 (35-45) mmHg ABG pO2 (83-108) mmHg ABG HCO3 (21-25) mmol/L ABG Total CO2 (19-24) mmol/L ABG O2 Saturation (94-97) % ABG Hematocrit (34.0-46.0) % ABG Ionized Calcium (4.5-5.3) mg/dL ABG Glucose (75-99) mg/dL ABG Lactic Acid (0.5-1.6) mmol/L Hemoglobin (13.0-17.5) gm/dL Sodium (137-145) mmol/L Chloride (98-107) mmol/L BUN (9-20) mg/dL Glucose (74-99) mg/dL POC Glucose (mg/dL) 140 H 133 H (75-99) mg/dL Calcium (8.4-10.2) mg/dL Alkaline Phosphatase (38-126) U/L Total Protein (6.3-8.2) g/dL Albumin (3.5-5.0) g/dL Arterial Blood Glucose (75-99) mg/dL Crossmatch 12/05/17 12/05/17 12/05/17 Range/Units 04:15 04:15 04:17 WBC (3.8-10.6) k/uL RBC (4.30-5.90) m/uL Hgb (13.0-17.5) gm/dL Hct (39.0-53.0) % Plt Count (150-450) k/uL Neutrophils # (1.3-7.7) k/uL Lymphocytes # (1.0-4.8) k/uL PT (9.0-12.0) sec INR 1.2 H (<1.2) APTT (22.0-30.0) sec ABG pH (7.35-7.45) ABG pCO2 (35-45) mmHg ABG pO2 (83-108) mmHg ABG HCO3 (21-25) mmol/L ABG Total CO2 (19-24) mmol/L ABG O2 Saturation (94-97) % ABG Hematocrit (34.0-46.0) % ABG Ionized Calcium (4.5-5.3) mg/dL ABG Glucose (75-99) mg/dL ABG Lactic Acid (0.5-1.6) mmol/L Hemoglobin (13.0-17.5) gm/dL Sodium 135 L (137-145) mmol/L Chloride (98-107) mmol/L BUN 21 H (9-20) mg/dL Glucose 121 H (74-99) mg/dL POC Glucose (mg/dL) 131 H (75-99) mg/dL Calcium (8.4-10.2) mg/dL Alkaline Phosphatase 34 L (38-126) U/L Total Protein 5.3 L (6.3-8.2) g/dL Albumin (3.5-5.0) g/dL Arterial Blood Glucose (75-99) mg/dL Crossmatch 12/05/17 12/05/17 12/05/17 Range/Units 06:12 07:02 08:28 WBC (3.8-10.6) k/uL RBC (4.30-5.90) m/uL Hgb (13.0-17.5) gm/dL Hct (39.0-53.0) % Plt Count (150-450) k/uL Neutrophils # (1.3-7.7) k/uL Lymphocytes # (1.0-4.8) k/uL PT (9.0-12.0) sec INR (<1.2) APTT (22.0-30.0) sec ABG pH (7.35-7.45) ABG pCO2 (35-45) mmHg ABG pO2 (83-108) mmHg ABG HCO3 (21-25) mmol/L ABG Total CO2 (19-24) mmol/L ABG O2 Saturation (94-97) % ABG Hematocrit (34.0-46.0) % ABG Ionized Calcium (4.5-5.3) mg/dL ABG Glucose (75-99) mg/dL ABG Lactic Acid (0.5-1.6) mmol/L Hemoglobin (13.0-17.5) gm/dL Sodium (137-145) mmol/L Chloride (98-107) mmol/L BUN (9-20) mg/dL Glucose (74-99) mg/dL POC Glucose (mg/dL) 129 H 123 H 157 H (75-99) mg/dL Calcium (8.4-10.2) mg/dL Alkaline Phosphatase (38-126) U/L Total Protein (6.3-8.2) g/dL Albumin (3.5-5.0) g/dL Arterial Blood Glucose (75-99) mg/dL Crossmatch 12/05/17 12/05/17 12/05/17 Range/Units 09:24 11:04 12:04 WBC (3.8-10.6) k/uL RBC (4.30-5.90) m/uL Hgb (13.0-17.5) gm/dL Hct (39.0-53.0) % Plt Count (150-450) k/uL Neutrophils # (1.3-7.7) k/uL Lymphocytes # (1.0-4.8) k/uL PT (9.0-12.0) sec INR (<1.2) APTT (22.0-30.0) sec ABG pH (7.35-7.45) ABG pCO2 (35-45) mmHg ABG pO2 (83-108) mmHg ABG HCO3 (21-25) mmol/L ABG Total CO2 (19-24) mmol/L ABG O2 Saturation (94-97) % ABG Hematocrit (34.0-46.0) % ABG Ionized Calcium (4.5-5.3) mg/dL ABG Glucose (75-99) mg/dL ABG Lactic Acid (0.5-1.6) mmol/L Hemoglobin (13.0-17.5) gm/dL Sodium (137-145) mmol/L Chloride (98-107) mmol/L BUN (9-20) mg/dL Glucose (74-99) mg/dL POC Glucose (mg/dL) 167 H 136 H 102 H (75-99) mg/dL Calcium (8.4-10.2) mg/dL Alkaline Phosphatase (38-126) U/L Total Protein (6.3-8.2) g/dL Albumin (3.5-5.0) g/dL Arterial Blood Glucose (75-99) mg/dL Crossmatch - Imaging and Cardiology Chest x-ray: report reviewed, image reviewed Assessment and Plan (1) COPD (chronic obstructive pulmonary disease) Current Visit: Yes Status: Chronic Code(s): J44.9 - CHRONIC OBSTRUCTIVE PULMONARY DISEASE, UNSPECIFIED SNOMED Code(s): 92116234 (2) Obesity (BMI 30-39.9) Current Visit: Yes Status: Chronic Code(s): E66.9 - OBESITY, UNSPECIFIED SNOMED Code(s): 729984608 (3) History of myocardial infarction Current Visit: No Status: Resolved Code(s): I25.2 - OLD MYOCARDIAL INFARCTION SNOMED Code(s): 997275593 (4) Diabetes mellitus Current Visit: Yes Status: Chronic Code(s): E11.9 - TYPE 2 DIABETES MELLITUS WITHOUT COMPLICATIONS SNOMED Code(s): 57748352 (5) Family history of heart disease Current Visit: Yes Status: Chronic Code(s): Z82.49 - FAMILY HX OF ISCHEM HEART DIS AND OTH DIS OF THE CIRC SYS SNOMED Code(s): 917120808 (6) Hyperlipidemia Current Visit: Yes Status: Chronic Code(s): E78.5 - HYPERLIPIDEMIA, UNSPECIFIED SNOMED Code(s): 65415101 (7) Hypertension Current Visit: Yes Status: Chronic Code(s): I10 - ESSENTIAL (PRIMARY) HYPERTENSION SNOMED Code(s): 08829567 (8) Severe aortic stenosis Current Visit: Yes Status: Chronic Code(s): I35.0 - NONRHEUMATIC AORTIC ( VALVE) STENOSIS SNOMED Code(s): 07342409 (9) Tobacco dependence in remission Current Visit: No Status: Resolved Code(s): F17.201 - NICOTINE DEPENDENCE, UNSPECIFIED, IN REMISSION SNOMED Code(s): 779710121 Plan: 1. Continue aspirin, statin, Plavix, heparin subcu, beta erasto. Will increase beta erasto therapy as tolerated. 2. Wean and discontinue Cleviprex as tolerated. Hydralazine added. 3. Wean O2 as tolerated. Encourage incentive spirometry is 10 times every hour. 4. Increase activity, ambulate in hallway, PT/OT/cardiac rehab following. 5. Discontinue [place] catheter. Connect Cordis to continuous CVP monitoring. 6. Proscar added already for prostate disorder, Cardura to be re-added. Bladder scan every 6 hours, straight cath for residual greater than 300 mL. 7. Will monitor daily labs and x-rays. 8. Insulin management per primary care service. 9. Pain control was ordered medication regimen. Toradol added. 10. Bronchodilators per pulmonology. 11. More recommendations to follow dependent on patient's progress. Time with Patient: Greater than 30
[2017-12-05 13:17] LABS: Glucose,Whole Blood 127 mg/dL (75-99)
[2017-12-05] MEDS: DOXAZOSIN 4 MG TAB PO SCH ×2 (13:20→20:55)
[2017-12-05] MEDS: CLOPIDOGREL 75 MG TAB PO SCH (13:23)
--- NOTE | 2017-12-05 13:57 | P.CONS ---
History of Present Illness - Reason for Consult Consult date: 12/05/17 - Chief Complaint AVR - History of Present Illness This is a 72-year-old male one of my patient with a previous medical history significant for hypertension and hypertensive cardiovascular disease, hyperlipidemia, diabetes mellitus type 2, was recently diagnosed with symptomatic aortic stenosis and a formal exertional dyspnea and episode of syncope., and underwent left heart catheterization for further evaluation of his coronary anatomy as well as the gradient across the aortic valve, patient had an echocardiogram that showed ejection fraction of 50-55% with moderate aortic stenosis and severe aortic sclerosis with mild aortic regurgitation. Catheterization that showed calcified coronary arteries, moderate disease in the right coronary artery, normal appearance of the ascending aorta with 2+ aortic regurgitation. REESE revealed dilated left atrium with normal left atrial appendage, normal left ventricle size and systolic function, severe aortic stenosis with mild tri-cuspid valve and mild aortic regurgitation, moderate mitral regurgitation, mild tricuspid regurgitation with no pulmonary hypertension. No shunting across the interatrial septum. Patient underwent aortic valve replacement on 12/06 and was successfully extubated this morning. Is currently on Keflex drip, insulin drip with white and suggesting a temp of 99 , pulse rate 68, respiratory rate 20 with blood pressure 141/45 saturating well on 2 L of oxygen. Harg[place] catheter has been removed this morning, no urine output since the catheter removal. Patient has mediastinal and left chest tube for the left pleural effusion. Patient examined bedside complains of some chest pain, dizziness and burning sensation in his feet. He denies any sweats, shortness of breath, palpitation, abdominal pain, change in bowel habits or dark stools. Patient is mentating well and answering appropriately INR 1.4, glucose 154, creatinine 0.89, albumin 2.1 chest x-ray obtained this morning suggest improvement in interstitial with better aeration. Review of Systems Constitutional: Denies chills, Denies fever, Denies lethargy, Denies malaise, Denies poor appetite, Denies weakness, Denies weight loss Eyes: denies decreased vision, denies diplopia, denies discharge, denies pain Ears: deny: decreased hearing Ears, nose, mouth and throat: Denies dental pain, Denies headache, Denies nasal discharge, Denies nose pain Cardiovascular: Endorses chest pain, endorses decreased exercise tolerance, Denies edema, Denies high blood pressure, Denies irregular heart beat, Denies palpitations, Denies paroxysmal nocturnal dyspnea, Denies rapid heart beat, Denies shortness of breath Respiratory: Denies congestion, Denies cough, Denies cough with sputum, Denies dyspnea, Denies home oxygen, Denies wheezing Gastrointestinal: Denies abdominal pain, Denies change in bowel habits, Denies coffee ground emesis, Denies early satiety, Denies excessive gas, Denies heartburn, Denies hematemesis, Denies hematochezia, Denies loss of appetite, Denies nausea, Denies vomiting Genitourinary: Denies dysuria, Denies flank pain, Denies kidney stones, Denies menorrhagia, Denies urgency, Denies urinary frequency Musculoskeletal: Denies gait dysfunction, Denies limitation of motion, Denies morning stiffness, Denies muscle cramps Integumentary: Denies rash, Denies wounds, Denies brittle nails, Denies change in hair/nails, Denies darkening of skin Neurological: Denies balance difficulties, Denies change in speech, Denies double vision, Denies gait dysfunction, Denies loss of vision, Denies motor disturbance, Denies numbness, Denies paralysis, Denies paresthesias, Denies seizures Psychiatric: Denies anxiety, Denies depression Endocrine: Denies excessive sweating, Denies excessive thirst, Denies high blood sugars, Denies palpitations Hematologic/Lymphatic: Denies easy bruising, Denies lymphadenopathy Past Medical History Past Medical History: Asthma, Cancer, Diabetes Mellitus, Hyperlipidemia, Hypertension, Osteoarthritis (OA), Prostate Disorder Additional Past Medical History / Comment(s): AORTIC VALVE STENOSIS, HX SKIN CA. History of Any Multi-Drug Resistant Organisms: None Reported MDRO Source:: left leg 1961 Past Surgical History: Heart Catheterization Additional Past Surgical History / Comment(s): left leg infection removed, Benign right breast tumor 1961, Past Anesthesia/Blood Transfusion Reactions: No Reported Reaction Smoking Status: Former smoker - Past Family History Mother Family Medical History: Cancer, Congestive Heart Failure (CHF) Additional Family Medical History / Comment(s): renal, melanoma Father Family Medical History: Cancer Additional Family Medical History / Comment(s): melanoma Sister(s) Family Medical History: AFIB Brother(s) Family Medical History: No Reported History Daughter(s) Family Medical History: No Reported History Son(s) Family Medical History: No Reported History Medications and Allergies Home Medications Medication Instructions Recorded Confirmed Type Aspirin [Adult Low Dose Aspirin EC] 81 mg PO HS 10/03/16 12/04/17 History Calcium Carbonate/Vitamin D3 1 tab PO HS 10/03/16 12/04/17 History [Calcium 600-Vit D3 800 Tab] Doxazosin Mesylate [Cardura] 8 mg PO BID 10/03/16 12/04/17 History Finasteride [Proscar] 5 mg PO HS 10/03/16 12/04/17 History Glimepiride [Amaryl] 4 mg PO BID 10/03/16 12/04/17 History Montelukast [Singulair] 10 mg PO DAILY 10/03/16 12/04/17 History Valsartan/Hydrochlorothiazide 1 tab PO DAILY 10/03/16 12/04/17 History [Valsartan-Hctz 320-12.5 mg Tab] Vitamin E 400 unit PO HS 10/03/16 12/04/17 History amLODIPine [Norvasc] 5 mg PO BID 10/03/16 12/04/17 History metFORMIN HCL [Metformin HCl] 1,000 mg PO BID 10/03/16 12/04/17 History Carvedilol [Coreg] 6.25 mg PO BID 11/17/17 12/04/17 History Furosemide [Lasix] 40 mg PO MOWEFR 11/17/17 12/04/17 History Mometasone/Formoterol [Dulera 100 2 puff INHALATION RT-BID PRN 11/17/17 History Mcg/5 Mcg Inhaler] Atorvastatin [Lipitor] 40 mg PO HS #30 tab 11/20/17 12/04/17 Rx hydrALAZINE HCL [Apresoline] 25 mg PO BID #60 tab 11/20/17 12/04/17 Rx Pioglitazone [Actos] 15 mg PO QAM 11/21/17 12/04/17 History Allergies Allergy/AdvReac Type Severity Reaction Status Date / Time No Known Allergies Allergy Verified 12/04/17 06:00 Physical Exam Vitals: Vital Signs Temp Pulse Pulse Resp BP Pulse Ox 12/05/17 13:13 93 L 12/05/17 13:00 63 22 96 12/05/17 12:00 99 F 68 20 96 12/05/17 11:54 70 12/05/17 11:43 68 12/05/17 11:00 66 24 95 12/05/17 10:00 59 L 19 96 12/05/17 09:00 66 23 94 L 12/05/17 08:25 23 12/05/17 08:00 97.6 F 65 23 97 12/05/17 07:50 63 12/05/17 07:40 60 96 12/05/17 07:15 70 24 106/51 95 12/05/17 07:00 79 15 106/51 97 12/05/17 06:45 80 13 106/51 97 12/05/17 06:30 79 16 106/51 97 12/05/17 06:15 79 18 106/51 91 L 12/05/17 06:00 79 19 106/51 94 L 12/05/17 05:45 79 29 H 90 L 12/05/17 05:30 67 23 93 L 12/05/17 05:15 63 45 H 92 L 12/05/17 05:00 67 51 H 89 L 12/05/17 04:45 63 17 91 L 12/05/17 04:30 62 19 91 L 12/05/17 04:15 59 L 20 93 L 12/05/17 04:00 97.9 F 79 23 92 L 12/05/17 03:45 80 21 94 L 12/05/17 03:30 79 17 96 12/05/17 03:15 79 20 97 12/05/17 03:00 79 25 H 94 L 12/05/17 02:45 80 20 96 12/05/17 02:30 79 19 93 L 12/05/17 02:15 80 17 97 12/05/17 02:00 79 26 H 94 L 12/05/17 01:45 80 16 94 L 12/05/17 01:30 80 19 97 12/05/17 01:15 79 25 H 96 12/05/17 01:00 79 16 97 12/05/17 00:45 79 17 97 12/05/17 00:30 80 26 H 96 12/05/17 00:15 60 20 96 12/05/17 00:00 98.1 F 74 21 93 L 12/04/17 23:45 59 L 15 96 12/04/17 23:30 59 L 16 96 12/04/17 23:15 61 19 95 12/04/17 23:07 64 21 94 L 12/04/17 23:00 69 17 96 12/04/17 22:45 71 23 95 12/04/17 22:30 65 22 97 12/04/17 22:15 59 L 16 97 12/04/17 22:00 68 19 97 12/04/17 21:45 73 33 H 96 12/04/17 21:30 80 36 H 97 12/04/17 21:15 59 L 16 98 12/04/17 21:00 66 28 H 95 12/04/17 20:45 59 L 15 97 12/04/17 20:30 64 18 96 12/04/17 20:15 75 45 H 94 L 12/04/17 20:00 96.8 F L 75 23 95 12/04/17 19:45 73 19 95 12/04/17 19:31 75 12/04/17 19:30 80 33 H 97 12/04/17 19:19 73 12/04/17 19:15 73 17 96 12/04/17 19:00 69 22 97 12/04/17 18:45 69 18 98 12/04/17 18:30 73 23 96 12/04/17 18:00 74 18 98 12/04/17 17:15 79 17 98 12/04/17 17:05 96 12/04/17 17:00 80 26 H 97 12/04/17 16:34 94 L 12/04/17 16:30 80 19 96 12/04/17 16:00 79 22 94 L 12/04/17 15:35 85 12/04/17 15:30 79 12 96 12/04/17 15:29 80 12/04/17 15:00 79 13 95 12/04/17 14:45 79 12 98 12/04/17 14:30 79 11 L 98 12/04/17 14:15 79 11 L 100 12/04/17 14:00 80 12 99 12/04/17 13:58 80 11 L 98 12/04/17 13:57 79 26 H 98 12/04/17 13:56 79 12 98 12/04/17 13:55 80 11 L 98 12/04/17 13:54 79 23 98 12/04/17 13:53 80 11 L 97 12/04/17 13:52 56 L 11 L 98 12/04/17 13:51 57 L 13 98 12/04/17 13:50 60 14 98 12/04/17 13:49 60 8 L 98 12/04/17 13:48 60 6 L 98 12/04/17 13:47 60 13 97 12/04/17 13:46 61 12 98 12/04/17 13:45 61 58 L 12 95 12/04/17 13:44 96.5 F L 61 12 99 12/04/17 13:40 69 15 99 Intake and Output 12/04/17 12/05/17 12/05/17 22:59 06:59 14:59 Intake Total 618.338 910.560 486.726 Output Total 955 715 380 Balance -336.662 195.560 106.726 Intake: IV 532 542 410 0.9 Pressure Bag 72 72 60 Cardiac Output 60 70 20 Lactated Ringers 1,000 ml 400 400 330 @ 20 mls/hr IV .Q24H [facility] Rx#:[id number] Intake, IV Titration 86.338 368.560 76.726 Amount Clevidipine Butyrate 25 67.999 130.667 18.667 mg In Empty Bag 1 bag @ 1 MG/HR 2 mls/hr IV .Q24H [facility] Rx#:[id number] Insulin Regular 100 unit 18.339 37.893 58.059 In Sodium Chloride 0.9% 100 ml @ Per Protocol IV .Q0M [facility] Rx#:[id number] ceFAZolin 2,000 mg In 200 Sodium Chloride 0.9% 30 ml @ Per Protocol IVPB ONCE ONE Rx#:[id number] Output: Chest Tube Drainage 480 410 290 Mediastinal 310 200 210 Right Lateral Chest 170 210 80 Urine 475 305 90 Other: Voiding Method Indwelling Catheter Indwelling Catheter Indwelling Catheter Weight 101.2 kg 101.2 kg ABP, PAP, CO, CI - Last 8 Hours Arterial Blood Pressure 129/44 Arterial Blood Pressure 141/45 Arterial Blood Pressure 135/48 Arterial Blood Pressure 134/40 Arterial Blood Pressure 162/51 Arterial Blood Pressure 135/49 Arterial Blood Pressure 118/49 Arterial Blood Pressure 137/48 Arterial Blood Pressure 137/45 Arterial Blood Pressure 148/51 Arterial Blood Pressure 140/42 Arterial Blood Pressure 134/41 Arterial Blood Pressure 138/37 Pulmonary Artery Pressure 34/15 Pulmonary Artery Pressure 31/13 Pulmonary Artery Pressure 32/12 Pulmonary Artery Pressure 41/13 Pulmonary Artery Pressure 26/9 Pulmonary Artery Pressure 35/12 Pulmonary Artery Pressure 37/22 Pulmonary Artery Pressure 34/20 Pulmonary Artery Pressure 35/20 Pulmonary Artery Pressure 29/14 Pulmonary Artery Pressure 27/12 Pulmonary Artery Pressure 42/11 Cardiac Output 6.7 Cardiac Output 6.7 Cardiac Output 6.7 Cardiac Output 6.7 Cardiac Output 7 Cardiac Output 7 Cardiac Output 7 Cardiac Output 7 Cardiac Output 7 Cardiac Output 7 Cardiac Output 7 Cardiac Output 7 Cardiac Output 7 Cardiac Index 3.3 - Constitutional General appearance: cooperative, no acute distress sitting comfortably in chair with Heart Hugger, obese - EENT Eyes: anicteric sclerae, PERRLA, normal appearance ENT: hearing grossly normal - Neck Neck: no lymphadenopathy, normal ROM, no other, no rigidity, no stridor, no thyromegaly - Respiratory Respiratory: bilateral: diminished, no dullness, no rales, no rhonchi mediastinal chest tube and right pleural chest tube - Cardiovascular Rhythm: regular Heart sounds: normal: S1, S2 Abnormal Heart Sounds: no systolic murmur, no diastolic murmur, no rub, stand or bear clean and intact - Gastrointestinal General gastrointestinal: normal bowel sounds, soft - Integumentary Integumentary: no rash - Neurologic Neurologic: CNII-XII intact - Musculoskeletal Musculoskeletal: strength equal bilaterally - Psychiatric Psychiatric: A&O x's 3, appropriate affect Results CBC & Chem 7: 12/05/17 04:15 12/05/17 04:15 Labs: Abnormal Lab Results - Last 24 Hours (Table) 11/27/17 12/04/17 12/04/17 Range/Units 14:00 13:35 13:35 WBC (3.8-10.6) k/uL RBC 3.07 L (4.30-5.90) m/uL Hgb 9.3 L D (13.0-17.5) gm/dL Hct 28.0 L (39.0-53.0) % Plt Count 113 L (150-450) k/uL Neutrophils # (1.3-7.7) k/uL Lymphocytes # 0.9 L (1.0-4.8) k/uL PT (9.0-12.0) sec INR (<1.2) APTT (22.0-30.0) sec ABG pH (7.35-7.45) ABG pCO2 (35-45) mmHg ABG pO2 (83-108) mmHg ABG HCO3 (21-25) mmol/L ABG Total CO2 (19-24) mmol/L ABG O2 Saturation (94-97) % Sodium (137-145) mmol/L Chloride 108 H (98-107) mmol/L BUN (9-20) mg/dL Glucose 117 H (74-99) mg/dL POC Glucose (mg/dL) (75-99) mg/dL Calcium 7.8 L (8.4-10.2) mg/dL Alkaline Phosphatase 30 L (38-126) U/L Total Protein 4.7 L (6.3-8.2) g/dL Albumin 3.1 L (3.5-5.0) g/dL Crossmatch See Detail 12/04/17 12/04/17 12/04/17 Range/Units 13:35 13:39 14:10 WBC (3.8-10.6) k/uL RBC (4.30-5.90) m/uL Hgb (13.0-17.5) gm/dL Hct (39.0-53.0) % Plt Count (150-450) k/uL Neutrophils # (1.3-7.7) k/uL Lymphocytes # (1.0-4.8) k/uL PT 13.5 H (9.0-12.0) sec INR 1.4 H (<1.2) APTT 43.1 H (22.0-30.0) sec ABG pH 7.34 L (7.35-7.45) ABG pCO2 49 H (35-45) mmHg ABG pO2 130 H (83-108) mmHg ABG HCO3 26 H (21-25) mmol/L ABG Total CO2 28 H (19-24) mmol/L ABG O2 Saturation 99.2 H (94-97) % Sodium (137-145) mmol/L Chloride (98-107) mmol/L BUN (9-20) mg/dL Glucose (74-99) mg/dL POC Glucose (mg/dL) 126 H (75-99) mg/dL Calcium (8.4-10.2) mg/dL Alkaline Phosphatase (38-126) U/L Total Protein (6.3-8.2) g/dL Albumin (3.5-5.0) g/dL Crossmatch 12/04/17 12/04/17 12/04/17 Range/Units 14:17 15:13 16:33 WBC (3.8-10.6) k/uL RBC (4.30-5.90) m/uL Hgb (13.0-17.5) gm/dL Hct (39.0-53.0) % Plt Count (150-450) k/uL Neutrophils # (1.3-7.7) k/uL Lymphocytes # (1.0-4.8) k/uL PT (9.0-12.0) sec INR (<1.2) APTT (22.0-30.0) sec ABG pH (7.35-7.45) ABG pCO2 (35-45) mmHg ABG pO2 (83-108) mmHg ABG HCO3 (21-25) mmol/L ABG Total CO2 (19-24) mmol/L ABG O2 Saturation (94-97) % Sodium (137-145) mmol/L Chloride (98-107) mmol/L BUN (9-20) mg/dL Glucose (74-99) mg/dL POC Glucose (mg/dL) 116 H 128 H 157 H (75-99) mg/dL Calcium (8.4-10.2) mg/dL Alkaline Phosphatase (38-126) U/L Total Protein (6.3-8.2) g/dL Albumin (3.5-5.0) g/dL Crossmatch 12/04/17 12/04/17 12/04/17 Range/Units 16:50 17:22 18:15 WBC (3.8-10.6) k/uL RBC (4.30-5.90) m/uL Hgb (13.0-17.5) gm/dL Hct (39.0-53.0) % Plt Count (150-450) k/uL Neutrophils # (1.3-7.7) k/uL Lymphocytes # (1.0-4.8) k/uL PT (9.0-12.0) sec INR (<1.2) APTT (22.0-30.0) sec ABG pH (7.35-7.45) ABG pCO2 (35-45) mmHg ABG pO2 61 L (83-108) mmHg ABG HCO3 (21-25) mmol/L ABG Total CO2 26 H (19-24) mmol/L ABG O2 Saturation 92.1 L (94-97) % Sodium (137-145) mmol/L Chloride (98-107) mmol/L BUN (9-20) mg/dL Glucose (74-99) mg/dL POC Glucose (mg/dL) 170 H 168 H (75-99) mg/dL Calcium (8.4-10.2) mg/dL Alkaline Phosphatase (38-126) U/L Total Protein (6.3-8.2) g/dL Albumin (3.5-5.0) g/dL Crossmatch 12/04/17 12/04/17 12/04/17 Range/Units 18:30 19:05 20:19 WBC (3.8-10.6) k/uL RBC 3.37 L (4.30-5.90) m/uL Hgb 10.3 L (13.0-17.5) gm/dL Hct 30.6 L (39.0-53.0) % Plt Count 121 L (150-450) k/uL Neutrophils # 8.0 H (1.3-7.7) k/uL Lymphocytes # 0.5 L (1.0-4.8) k/uL PT (9.0-12.0) sec INR (<1.2) APTT (22.0-30.0) sec ABG pH (7.35-7.45) ABG pCO2 (35-45) mmHg ABG pO2 (83-108) mmHg ABG HCO3 (21-25) mmol/L ABG Total CO2 (19-24) mmol/L ABG O2 Saturation (94-97) % Sodium (137-145) mmol/L Chloride (98-107) mmol/L BUN (9-20) mg/dL Glucose (74-99) mg/dL POC Glucose (mg/dL) 167 H 159 H (75-99) mg/dL Calcium (8.4-10.2) mg/dL Alkaline Phosphatase (38-126) U/L Total Protein (6.3-8.2) g/dL Albumin (3.5-5.0) g/dL Crossmatch 12/04/17 12/04/17 12/04/17 Range/Units 21:00 21:58 22:59 WBC (3.8-10.6) k/uL RBC (4.30-5.90) m/uL Hgb (13.0-17.5) gm/dL Hct (39.0-53.0) % Plt Count (150-450) k/uL Neutrophils # (1.3-7.7) k/uL Lymphocytes # (1.0-4.8) k/uL PT (9.0-12.0) sec INR (<1.2) APTT (22.0-30.0) sec ABG pH (7.35-7.45) ABG pCO2 (35-45) mmHg ABG pO2 (83-108) mmHg ABG HCO3 (21-25) mmol/L ABG Total CO2 (19-24) mmol/L ABG O2 Saturation (94-97) % Sodium (137-145) mmol/L Chloride (98-107) mmol/L BUN (9-20) mg/dL Glucose (74-99) mg/dL POC Glucose (mg/dL) 155 H 148 H 154 H (75-99) mg/dL Calcium (8.4-10.2) mg/dL Alkaline Phosphatase (38-126) U/L Total Protein (6.3-8.2) g/dL Albumin (3.5-5.0) g/dL Crossmatch 12/05/17 12/05/17 12/05/17 Range/Units 00:11 00:55 02:03 WBC (3.8-10.6) k/uL RBC (4.30-5.90) m/uL Hgb (13.0-17.5) gm/dL Hct (39.0-53.0) % Plt Count (150-450) k/uL Neutrophils # (1.3-7.7) k/uL Lymphocytes # (1.0-4.8) k/uL PT (9.0-12.0) sec INR (<1.2) APTT (22.0-30.0) sec ABG pH (7.35-7.45) ABG pCO2 (35-45) mmHg ABG pO2 (83-108) mmHg ABG HCO3 (21-25) mmol/L ABG Total CO2 (19-24) mmol/L ABG O2 Saturation (94-97) % Sodium (137-145) mmol/L Chloride (98-107) mmol/L BUN (9-20) mg/dL Glucose (74-99) mg/dL POC Glucose (mg/dL) 155 H 147 H 140 H (75-99) mg/dL Calcium (8.4-10.2) mg/dL Alkaline Phosphatase (38-126) U/L Total Protein (6.3-8.2) g/dL Albumin (3.5-5.0) g/dL Crossmatch 12/05/17 12/05/17 12/05/17 Range/Units 03:07 04:15 04:15 WBC 11.1 H (3.8-10.6) k/uL RBC 3.28 L (4.30-5.90) m/uL Hgb 10.3 L (13.0-17.5) gm/dL Hct 30.1 L (39.0-53.0) % Plt Count 131 L (150-450) k/uL Neutrophils # 9.7 H (1.3-7.7) k/uL Lymphocytes # 0.5 L (1.0-4.8) k/uL PT (9.0-12.0) sec INR 1.2 H (<1.2) APTT (22.0-30.0) sec ABG pH (7.35-7.45) ABG pCO2 (35-45) mmHg ABG pO2 (83-108) mmHg ABG HCO3 (21-25) mmol/L ABG Total CO2 (19-24) mmol/L ABG O2 Saturation (94-97) % Sodium (137-145) mmol/L Chloride (98-107) mmol/L BUN (9-20) mg/dL Glucose (74-99) mg/dL POC Glucose (mg/dL) 133 H (75-99) mg/dL Calcium (8.4-10.2) mg/dL Alkaline Phosphatase (38-126) U/L Total Protein (6.3-8.2) g/dL Albumin (3.5-5.0) g/dL Crossmatch 12/05/17 12/05/17 12/05/17 Range/Units 04:15 04:17 06:12 WBC (3.8-10.6) k/uL RBC (4.30-5.90) m/uL Hgb (13.0-17.5) gm/dL Hct (39.0-53.0) % Plt Count (150-450) k/uL Neutrophils # (1.3-7.7) k/uL Lymphocytes # (1.0-4.8) k/uL PT (9.0-12.0) sec INR (<1.2) APTT (22.0-30.0) sec ABG pH (7.35-7.45) ABG pCO2 (35-45) mmHg ABG pO2 (83-108) mmHg ABG HCO3 (21-25) mmol/L ABG Total CO2 (19-24) mmol/L ABG O2 Saturation (94-97) % Sodium 135 L (137-145) mmol/L Chloride (98-107) mmol/L BUN 21 H (9-20) mg/dL Glucose 121 H (74-99) mg/dL POC Glucose (mg/dL) 131 H 129 H (75-99) mg/dL Calcium (8.4-10.2) mg/dL Alkaline Phosphatase 34 L (38-126) U/L Total Protein 5.3 L (6.3-8.2) g/dL Albumin (3.5-5.0) g/dL Crossmatch 12/05/17 12/05/17 12/05/17 Range/Units 07:02 08:28 09:24 WBC (3.8-10.6) k/uL RBC (4.30-5.90) m/uL Hgb (13.0-17.5) gm/dL Hct (39.0-53.0) % Plt Count (150-450) k/uL Neutrophils # (1.3-7.7) k/uL Lymphocytes # (1.0-4.8) k/uL PT (9.0-12.0) sec INR (<1.2) APTT (22.0-30.0) sec ABG pH (7.35-7.45) ABG pCO2 (35-45) mmHg ABG pO2 (83-108) mmHg ABG HCO3 (21-25) mmol/L ABG Total CO2 (19-24) mmol/L ABG O2 Saturation (94-97) % Sodium (137-145) mmol/L Chloride (98-107) mmol/L BUN (9-20) mg/dL Glucose (74-99) mg/dL POC Glucose (mg/dL) 123 H 157 H 167 H (75-99) mg/dL Calcium (8.4-10.2) mg/dL Alkaline Phosphatase (38-126) U/L Total Protein (6.3-8.2) g/dL Albumin (3.5-5.0) g/dL Crossmatch 12/05/17 12/05/17 12/05/17 Range/Units 11:04 12:04 13:15 WBC (3.8-10.6) k/uL RBC (4.30-5.90) m/uL Hgb (13.0-17.5) gm/dL Hct (39.0-53.0) % Plt Count (150-450) k/uL Neutrophils # (1.3-7.7) k/uL Lymphocytes # (1.0-4.8) k/uL PT (9.0-12.0) sec INR (<1.2) APTT (22.0-30.0) sec ABG pH (7.35-7.45) ABG pCO2 (35-45) mmHg ABG pO2 (83-108) mmHg ABG HCO3 (21-25) mmol/L ABG Total CO2 (19-24) mmol/L ABG O2 Saturation (94-97) % Sodium (137-145) mmol/L Chloride (98-107) mmol/L BUN (9-20) mg/dL Glucose (74-99) mg/dL POC Glucose (mg/dL) 136 H 102 H 127 H (75-99) mg/dL Calcium (8.4-10.2) mg/dL Alkaline Phosphatase (38-126) U/L Total Protein (6.3-8.2) g/dL Albumin (3.5-5.0) g/dL Crossmatch Assessment and Plan Plan: 1. Severe aortic stenosis status post aortic valve replacement Postoperative day 1 patient currently on Claviprex drip for blood pressure control. Continue aspirin 325 mg orally once every day, continue Coreg 6.25 mg orally twice every day, Lipitor, Plavix. Continue oxygen as needed to keep saturation above 92%. Incentive spirometry for pulmonary prophylaxis. Pain control per primary team. GI prophylaxis with Protonix. 2. Diabetes mellitus type 2. continue with consistent carbohydrate diet. HbA1c ordered. Continue insulin drip for now 3. Hypertension and hypertensive cardiovascular disease. Continue Coreg 6.25 mg orally twice every day and claviprex drip 4. Chronic diastolic heart failure. hold Lasix 40 mg Friday and Friday, Coreg 6.25 mg orally twice every day 5. Hyperlipidemia. Continue with Lipitor. 6. Enlarged prostate continue patient on Doxazosin 8 mg orally twice every day and finasteride 5 mg orally once every day. No urine output since patient has [place] catheter removed. Monitor with bladder scan every 6 hour 7. ALLERGIC rhinitis/asthma. Continue Singulair 10 mg at bedtime as well as Ventolin inhaler. 8. Osteoarthritis. Clinically stable. 9. DVT prophylaxis. Continue heparin every 8 10. GI prophylaxis. Continue patient on PPI. Thank you for the consult. I'll be happy to assist in patient's glucose control and any other medical needs during the time patient is here in the hospital
[2017-12-05 14:42] LABS: Glucose,Whole Blood 165 mg/dL (75-99)
[2017-12-05 16:08] LABS: Glucose,Whole Blood 183 mg/dL (75-99)
[2017-12-05] MEDS: LACTATED RINGERS 1,000 ML IV SCH (16:14)
[2017-12-05 17:20] LABS: Glucose,Whole Blood 136 mg/dL (75-99)
[2017-12-05 18:13] LABS: Glucose,Whole Blood 111 mg/dL (75-99)
[2017-12-05 19:07] LABS: Glucose,Whole Blood 175 mg/dL (75-99)
[2017-12-05] MEDS: MONTELUKAST 10 MG TAB PO SCH (20:55)
[2017-12-05] MEDS: FINASTERIDE 5 MG TAB PO SCH (20:56)
[2017-12-05] MEDS: SENNOSIDES-DOCUSATE SODIUM 1 EACH TAB PO SCH (20:57)
[2017-12-05] MEDS ORDERED: CARVEDILOL 3.125 MG TAB PO SCH (21:00)
[2017-12-05 21:05] LABS: Glucose,Whole Blood 310 mg/dL (75-99)
[2017-12-05 21:09] LABS: Glucose,Whole Blood 235 mg/dL (75-99)
[2017-12-05 22:01] LABS: Glucose,Whole Blood 236 mg/dL (75-99)
[2017-12-05 23:11] LABS: Glucose,Whole Blood 199 mg/dL (75-99)
[2017-12-06 00:06] LABS: Glucose,Whole Blood 169 mg/dL (75-99)
[2017-12-06] MEDS: hydrALAZINE HCL 25 MG TAB PO SCH ×4 (00:08→23:08)
[2017-12-06] MEDS: HEPARIN SODIUM,PORCINE 5,000 UNIT/ML 1 ML VIAL SQ SCH ×4 (00:08→23:08)
[2017-12-06] MEDS: HYDROcodone/APAP 5-325MG 1 EACH TAB PO PRN ×5 (00:09→20:50)
[2017-12-06 01:13] LABS: Glucose,Whole Blood 132 mg/dL (75-99)
[2017-12-06 02:13] LABS: Glucose,Whole Blood 101 mg/dL (75-99)
[2017-12-06] MEDS: KETOROLAC 30 MG/ML 1 ML VIAL IVP SCH ×2 (03:00→08:20)
[2017-12-06 03:05] LABS: Glucose,Whole Blood 102 mg/dL (75-99)
[2017-12-06 04:05] LABS: Glucose,Whole Blood 124 mg/dL (75-99)
[2017-12-06 04:18] LABS: Basophils % (A) 0 %; Eosinophils # (A) 0.2 k/uL (0-0.7); Eosinophils % (A) 3 %; HCT 25.4 % (39.0-53.0); Lymphocytes % (A) 13 %; MCH 31.3 pg (25.0-35.0); MCHC 34.6 g/dL (31.0-37.0); MCV 90.5 fL (80.0-100.0); Mean Platelet Volume 8.8; Monocytes # (A) 0.7 k/uL (0-1.0); Monocytes % (A) 10 %; Neutrophils # (A) 5.4 k/uL (1.3-7.7); Neutrophils % (A) 72 %; RBC 2.81 m/uL (4.30-5.90); WBC 7.5 k/uL (3.8-10.6)
[2017-12-06 04:20] LABS: HGB 8.8 gm/dL (13.0-17.5)
[2017-12-06 04:24] LABS: Ionized Calcium 4.6 mg/dL (4.5-5.3)
[2017-12-06 04:36] LABS: Albumin 2.7 g/dL (3.5-5.0); Total Bilirubin 0.5 mg/dL (0.2-1.3); Total Protein 4.6 g/dL (6.3-8.2)
[2017-12-06 04:43] LABS: Platelet Count 97 k/uL (150-450)
[2017-12-06 04:51] LABS: Glucose,Whole Blood 117 mg/dL (75-99)
[2017-12-06 06:14] LABS: Glucose,Whole Blood 96 mg/dL (75-99)
--- NOTE | 2017-12-06 06:57 | XR ---
EXAMINATION TYPE: XR chest 1V portable DATE OF EXAM: 12/06/2017 HISTORY: Post Operative Cardiac Surgery. REFERENCE: Previous study dated 12/05/2017. FINDINGS: There has been a midline sternotomy. The patient's [place] catheter is been removed. The right internal jugular sheath remains in place. A right pleural drain is in place. The heart is mildly enlarged. There is vascular congestion without ely edema. There is left basilar airspace disease. There is a small left effusion. IMPRESSION: CONTINUING POSTOPERATIVE CHANGE.
[2017-12-06 07:10] LABS: Glucose,Whole Blood 108 mg/dL (75-99)
[2017-12-06 07:59] LABS: Glucose,Whole Blood 197 mg/dL (75-99)
[2017-12-06] MEDS: INSULIN REGULAR 100 UNIT in SODIUM CHLORIDE 0.9% 100 ML IV SCH ×3 (08:00→17:55)
[2017-12-06 08:13] LABS: Basophils % (A) 0 %; Eosinophils # (A) 0.2 k/uL (0-0.7); Eosinophils % (A) 3 %; HCT 27.1 % (39.0-53.0); HGB 9.1 gm/dL (13.0-17.5); Lymphocytes # (A) 0.7 k/uL (1.0-4.8); Lymphocytes % (A) 8 %; MCH 30.6 pg (25.0-35.0); MCHC 33.7 g/dL (31.0-37.0); MCV 90.8 fL (80.0-100.0); Mean Platelet Volume 8.8; Monocytes # (A) 0.7 k/uL (0-1.0); Monocytes % (A) 8 %; Neutrophils # (A) 6.7 k/uL (1.3-7.7); Neutrophils % (A) 79 %; RBC 2.98 m/uL (4.30-5.90); RDW 13.9 % (11.5-15.5); WBC 8.4 k/uL (3.8-10.6)
[2017-12-06 08:16] LABS: Platelet Count 95 k/uL (150-450)
[2017-12-06] MEDS: MAGNESIUM HYDROXIDE 2,400 MG/10 ML CUP PO PRN (08:16)
[2017-12-06] MEDS: PANTOPRAZOLE 40 MG TABLET PO SCH (08:19)
[2017-12-06] MEDS: ATORVASTATIN 40 MG TAB PO SCH (08:20)
[2017-12-06] MEDS: ASPIRIN 325 MG TAB PO SCH (08:20)
[2017-12-06] MEDS: CARVEDILOL 6.25 MG TAB PO SCH ×2 (08:21→20:49)
[2017-12-06] MEDS: CLOPIDOGREL 75 MG TAB PO SCH (08:22)
[2017-12-06] MEDS: IPRATROPIUM-ALBUTEROL 3 ML NEB INHALATION SCH ×4 (08:43→19:56)
--- NOTE | 2017-12-06 09:01 | P.PN ---
Subjective Progress Note Date: 12/06/17 Principal diagnosis: Severe calcific aortic valve stenosis. Mild aortic valve regurgitation. Mild to moderate mitral valve regurgitation. Preserved left ventricular function with preoperative EF 50-55%. Diabetes with preoperative hemoglobin A1c 7.0%. Hyperlipidemia. Hypertension. Previous tobacco dependence. Mild COPD with preoperative FEV1 70% of predicted. History of syncope. History of previous non-STEMI in October of this year, RCA stenosis 30-40%. Obesity. POD #2 aortic valve replacement using a 23 mm bovine bioprosthesis, Inspiris. Exclusion of the left atrial appendage using a 35 mm AtriClip. Intraoperative transesophageal echocardiogram and epi-aortic scanning. Postoperative acute blood loss anemia, an expected outcome of surgery given hemodilution and use of cardiopulmonary bypass pump. Postoperative thrombocytopenia, an expected outcome. The patient is currently sitting up in the recliner in no acute distress. States pain is controlled with current medication regimen. Denies shortness of breath. Hemodynamically stable, currently on no inotropes or pressors. Patient is ambulating in the hallway in the intensive care unit. Objective - Vital Signs Vital signs: Vital Signs Temp 98.7 F 12/06/17 04:00 Pulse 80 12/06/17 08:46 Resp 18 12/06/17 08:00 BP 125/64 12/06/17 08:00 Pulse Ox 97 12/06/17 06:00 Intake & Output 12/05/17 12/06/17 12/06/17 18:59 06:59 18:59 Intake Total 1563.243 508.343 36 Output Total 786 1380 Balance 777.243 -871.657 36 Weight 101.2 kg 101 kg Intake: IV 471 429 36 0.9 Pressure Bag 81 39 6 Cardiac Output 20 Lactated Ringers 1,000 ml 370 390 30 @ 20 mls/hr IV .Q24H [facility] Rx#:[id number] Intake, IV Titration 112.243 79.343 0 Amount Clevidipine Butyrate 25 18.667 mg In Empty Bag 1 bag @ 1 MG/HR 2 mls/hr IV .Q24H [facility] Rx#:[id number] Insulin Regular 100 unit 93.576 79.343 0 In Sodium Chloride 0.9% 100 ml @ Per Protocol IV .Q0M [facility] Rx#:[id number] Oral 980 Output: Chest Tube Drainage 420 230 Mediastinal 280 90 Right Lateral Chest 140 140 Urine 340 1150 Post Void Residual 26 Other: Voiding Method Indwelling Catheter Urinal # Voids 0 ABP, PAP, CO, CI - Last Documented Arterial Blood Pressure 160/49 Pulmonary Artery Pressure 34/15 Cardiac Output 6.7 Cardiac Index 3.2 - Constitutional General appearance: Present: cooperative, no acute distress, obese - Respiratory Details: Lungs sounds diminished bilaterally. Respirations even, nonlabored. Currently on 2 L nasal cannula with oxygen saturation 97%. Able to achieve 750-1000 mL on his incentive spirometry. Effective cough. Mediastinal chest tube to continuous wall suction, 60 mL serosanguineous drainage overnight, 400 mL in the last 24 hours. Right pleural chest tube to continuous wall suction, 90 mL serosanguineous drainage overnight, 150 mL in the last 24 hours. No air leaks present. - Cardiovascular Details: S1, S2 present. Regular rate and rhythm, sinus rhythm with occasional PVCs on telemetry. Sternum stable. A/V epicardial pacemaker wires present, grounded. Palpable peripheral pulses bilaterally. No edema present. No calf pain or tenderness noted. Right internal jugular Cordis, right radial arterial line present. Heart hugger in place with patient demonstrating appropriate use. Antiembolism stockings, SCDs present. - Gastrointestinal Gastrointestinal Comment(s): Abdomen soft, nontender, nondistended. Hypoactive bowel sounds present 4 quadrants. Tolerating diet. No flatus yet. - Genitourinary Genitourinary Comment(s): Hargrove discontinued yesterday. Urine output has been 200-250 mL at a time with minimal residual. - Integumentary Integumentary Comment(s): Skin is warm and dry with evidence of good perfusion. Anterior chest incision well approximated and covered with dry intact dressing. - Neurologic Neurologic: Present: CNII-XII intact - Musculoskeletal Musculoskeletal: Present: gait normal, strength equal bilaterally - Psychiatric Psychiatric: Present: A&O x's 3, appropriate affect, intact judgment & insight - Allied health notes Allied health notes reviewed: nursing - Labs CBC & Chem 7: 12/06/17 08:03 12/06/17 04:05 Labs: Abnormal Lab Results - Last 24 Hours (Table) 12/05/17 12/05/17 12/05/17 Range/Units 09:24 11:04 12:04 RBC (4.30-5.90) m/uL Hgb (13.0-17.5) gm/dL Hct (39.0-53.0) % Plt Count (150-450) k/uL Lymphocytes # (1.0-4.8) k/uL Sodium (137-145) mmol/L BUN (9-20) mg/dL Creatinine (0.66-1.25) mg/dL Glucose (74-99) mg/dL POC Glucose (mg/dL) 167 H 136 H 102 H (75-99) mg/dL Calcium (8.4-10.2) mg/dL Alkaline Phosphatase (38-126) U/L Total Protein (6.3-8.2) g/dL Albumin (3.5-5.0) g/dL 12/05/17 12/05/17 12/05/17 Range/Units 13:15 14:39 16:06 RBC (4.30-5.90) m/uL Hgb (13.0-17.5) gm/dL Hct (39.0-53.0) % Plt Count (150-450) k/uL Lymphocytes # (1.0-4.8) k/uL Sodium (137-145) mmol/L BUN (9-20) mg/dL Creatinine (0.66-1.25) mg/dL Glucose (74-99) mg/dL POC Glucose (mg/dL) 127 H 165 H 183 H (75-99) mg/dL Calcium (8.4-10.2) mg/dL Alkaline Phosphatase (38-126) U/L Total Protein (6.3-8.2) g/dL Albumin (3.5-5.0) g/dL 12/05/17 12/05/17 12/05/17 Range/Units 17:18 18:10 19:05 RBC (4.30-5.90) m/uL Hgb (13.0-17.5) gm/dL Hct (39.0-53.0) % Plt Count (150-450) k/uL Lymphocytes # (1.0-4.8) k/uL Sodium (137-145) mmol/L BUN (9-20) mg/dL Creatinine (0.66-1.25) mg/dL Glucose (74-99) mg/dL POC Glucose (mg/dL) 136 H 111 H 175 H (75-99) mg/dL Calcium (8.4-10.2) mg/dL Alkaline Phosphatase (38-126) U/L Total Protein (6.3-8.2) g/dL Albumin (3.5-5.0) g/dL 12/05/17 12/05/17 12/05/17 Range/Units 21:04 21:07 21:59 RBC (4.30-5.90) m/uL Hgb (13.0-17.5) gm/dL Hct (39.0-53.0) % Plt Count (150-450) k/uL Lymphocytes # (1.0-4.8) k/uL Sodium (137-145) mmol/L BUN (9-20) mg/dL Creatinine (0.66-1.25) mg/dL Glucose (74-99) mg/dL POC Glucose (mg/dL) 310 H 235 H 236 H (75-99) mg/dL Calcium (8.4-10.2) mg/dL Alkaline Phosphatase (38-126) U/L Total Protein (6.3-8.2) g/dL Albumin (3.5-5.0) g/dL 12/05/17 12/06/17 12/06/17 Range/Units 23:09 00:04 01:11 RBC (4.30-5.90) m/uL Hgb (13.0-17.5) gm/dL Hct (39.0-53.0) % Plt Count (150-450) k/uL Lymphocytes # (1.0-4.8) k/uL Sodium (137-145) mmol/L BUN (9-20) mg/dL Creatinine (0.66-1.25) mg/dL Glucose (74-99) mg/dL POC Glucose (mg/dL) 199 H 169 H 132 H (75-99) mg/dL Calcium (8.4-10.2) mg/dL Alkaline Phosphatase (38-126) U/L Total Protein (6.3-8.2) g/dL Albumin (3.5-5.0) g/dL 12/06/17 12/06/17 12/06/17 Range/Units 02:11 03:03 04:03 RBC (4.30-5.90) m/uL Hgb (13.0-17.5) gm/dL Hct (39.0-53.0) % Plt Count (150-450) k/uL Lymphocytes # (1.0-4.8) k/uL Sodium (137-145) mmol/L BUN (9-20) mg/dL Creatinine (0.66-1.25) mg/dL Glucose (74-99) mg/dL POC Glucose (mg/dL) 101 H 102 H 124 H (75-99) mg/dL Calcium (8.4-10.2) mg/dL Alkaline Phosphatase (38-126) U/L Total Protein (6.3-8.2) g/dL Albumin (3.5-5.0) g/dL 12/06/17 12/06/17 12/06/17 Range/Units 04:05 04:05 04:49 RBC 2.81 L (4.30-5.90) m/uL Hgb 8.8 L D (13.0-17.5) gm/dL Hct 25.4 L (39.0-53.0) % Plt Count 97 L (150-450) k/uL Lymphocytes # (1.0-4.8) k/uL Sodium 129 L (137-145) mmol/L BUN 30 H (9-20) mg/dL Creatinine 1.30 H (0.66-1.25) mg/dL Glucose 111 H (74-99) mg/dL POC Glucose (mg/dL) 117 H (75-99) mg/dL Calcium 8.0 L (8.4-10.2) mg/dL Alkaline Phosphatase 33 L (38-126) U/L Total Protein 4.6 L (6.3-8.2) g/dL Albumin 2.7 L (3.5-5.0) g/dL 12/06/17 12/06/17 12/06/17 Range/Units 07:07 07:56 08:03 RBC 2.98 L (4.30-5.90) m/uL Hgb 9.1 L (13.0-17.5) gm/dL Hct 27.1 L (39.0-53.0) % Plt Count 95 L (150-450) k/uL Lymphocytes # 0.7 L (1.0-4.8) k/uL Sodium (137-145) mmol/L BUN (9-20) mg/dL Creatinine (0.66-1.25) mg/dL Glucose (74-99) mg/dL POC Glucose (mg/dL) 108 H 197 H (75-99) mg/dL Calcium (8.4-10.2) mg/dL Alkaline Phosphatase (38-126) U/L Total Protein (6.3-8.2) g/dL Albumin (3.5-5.0) g/dL - Imaging and Cardiology Chest x-ray: report reviewed, image reviewed Assessment and Plan (1) COPD (chronic obstructive pulmonary disease) Current Visit: Yes Status: Chronic Code(s): J44.9 - CHRONIC OBSTRUCTIVE PULMONARY DISEASE, UNSPECIFIED SNOMED Code(s): 69082097 (2) Obesity (BMI 30-39.9) Current Visit: Yes Status: Chronic Code(s): E66.9 - OBESITY, UNSPECIFIED SNOMED Code(s): 994388946 (3) History of myocardial infarction Current Visit: No Status: Resolved Code(s): I25.2 - OLD MYOCARDIAL INFARCTION SNOMED Code(s): 530177489 (4) Diabetes mellitus Current Visit: Yes Status: Chronic Code(s): E11.9 - TYPE 2 DIABETES MELLITUS WITHOUT COMPLICATIONS SNOMED Code(s): 68811733 (5) Family history of heart disease Current Visit: Yes Status: Chronic Code(s): Z82.49 - FAMILY HX OF ISCHEM HEART DIS AND OTH DIS OF THE CIRC SYS SNOMED Code(s): 205162845 (6) Hyperlipidemia Current Visit: Yes Status: Chronic Code(s): E78.5 - HYPERLIPIDEMIA, UNSPECIFIED SNOMED Code(s): 43816400 (7) Hypertension Current Visit: Yes Status: Chronic Code(s): I10 - ESSENTIAL (PRIMARY) HYPERTENSION SNOMED Code(s): 45742721 (8) Severe aortic stenosis Current Visit: Yes Status: Chronic Code(s): I35.0 - NONRHEUMATIC AORTIC ( VALVE) STENOSIS SNOMED Code(s): 60238006 (9) Tobacco dependence in remission Current Visit: No Status: Resolved Code(s): F17.201 - NICOTINE DEPENDENCE, UNSPECIFIED, IN REMISSION SNOMED Code(s): 396499907 Plan: 1. Continue aspirin, statin, Plavix, heparin subcu, hydralazine, beta erasto. Will increase beta erasto therapy as tolerated. 2. Wean O2 as tolerated. Encourage incentive spirometry is 10 times every hour. 3. Increase activity, ambulate in hallway, PT/OT/cardiac rehab following. 4. Likely will discontinue mediastinal chest tube today as well as Cordis and arterial line. 5. Continue Proscar, Cardura for prostate disorder. Bladder scan every 6 hours x 3, straight cath for residual greater than 300 mL. 6. Will monitor daily labs and x-rays. No need for transfusion at this point. 7. Insulin/diabetic management per primary care service. 8. Pain control was ordered medication regimen. Toradol discontinued secondary to creatinine 1.3. 9. Bronchodilators per pulmonology. 10. Likely will transfer to 6 E. selective care later today. 11. More recommendations to follow dependent on patient's progress. Time with Patient: Greater than 30
[2017-12-06 09:52] LABS: Glucose,Whole Blood 365 mg/dL (75-99)
[2017-12-06 09:52] LABS: Glucose,Whole Blood 336 mg/dL (75-99)
[2017-12-06] MEDS: DOXAZOSIN 4 MG TAB PO SCH ×2 (10:00→20:49)
[2017-12-06] MEDS: MUPIROCIN 2% OINT 22 GM TUBE NASAL SCH ×2 (10:00→20:50)
[2017-12-06 10:32] LABS: Glucose,Whole Blood 289 mg/dL (75-99)
[2017-12-06] MEDS ORDERED: GLIMEPIRIDE 4 MG TAB PO SCH (10:45)
--- NOTE | 2017-12-06 11:11 | P.PN ---
Subjective Progress Note Date: 12/06/17 This is a 72-year-old male patient who underwent an aortic valve replacement and the patient is currently in the intensive care unit intubated on a mechanical ventilator and I was consulted for postoperative care. The patient is known to have aortic stenosis, hypertension, hyperlipidemia, diabetes mellitus, and bronchial asthma. He is an ex-smoker. The patient was having exertional dyspnea and 2 episodes of syncope. Cardiac catheterization was done and it showed a 30-40% disease involving the right coronary artery and the rest of the coronaries were all within normal limits. The preoperative valve area was 0.7 cm. Based on this, surgery was done. Currently the patient is intubated on a mechanical ventilator. He is sedated with Diprivan. I have switched this patient to an assist-control mode of ventilation at the rate of 12 , tidal volume of 580, FiO2 was dropped down to 80% and PEEP is at 5. The postop blood gases showed a pH of 7.33 with a pCO2 of 49 and pO2 of 130 and this was on the fourth of 100%. He is hemodynamically stable. He is currently on Cleviprex drip which is running at 8 mg an hour. The patient's cardiac index is at 2.5. Cardiac up as of 5.3. PA pressures are 35/21. The right- sided chest tube was placed without 30 mL and the mediastinal chest tube has put out 70 mL the patient's arrival from the operating room. Urine output is in order of 35 mL an hour. Chest x-ray shows postoperative findings with an accurate positioning of ET tube, Whittier-Bon catheter and chest tube. There is possibly development of a left-sided pleural effusion. There is only vessel congestion/early edema based on chest x-ray findings. On 12/05/2017, I'm seeing this patient for a follow-up. The patient is postop day #1 following an aortic valve replacement surgery. The patient's surgery was successful. The patient was extubated within a few hours of arriving to the intensive care unit. This was a smooth extubation. Patient is currently on oxygen at 2 L/m nasal cannula and the pulse ox is 94%. The chest x-ray from this morning shows improvement in the volume status. Improvement in aeration. There is a right-sided chest tube and the mediastinal chest tube. No evidence of any air leak from the chest tubes. The output from the mediastinal chest tube has been around 510 mL over the past 18 hours and output from the right pleural chest tube is 380 mL over the past 18 hours. No evidence of any air leak. Today's hemoglobin is at 10.3. The patient remains on Cleviprex drip at 4 mg an hour. Lopressor was started a dose of 12.5 mg by mouth twice a day. He has sinus with a heart rate in the mid 60s and the patient is producing good amount of urine output. Renal function is stable. No other specific complaints. He is using incentive spirometer. Sternum stable clean and intact. On 12/06/2017 I'm seeing this patient for a follow-up postop day #2 following an aortic valve replacement. He is doing extremely well. Chest tube output is minimal at this point in time. He is ambulating. Is on room air. No respiratory difficulties. He is off the Cleviprex drip. He is back on hydralazine and Coreg. I think he will ultimately need the addition of Norvasc for a tighter blood pressure control. Blood sugars remained elevated and the patient is still in need for a insulin drip. The patient is using incentive spirometer. The hemoglobin stable at 9.1. No other significant events per no change in mental status. Pain is under good control. He has a normal urine output. No other significant events otherwise overnight. Cardiac rhythm is sinus. Objective - Vital Signs Vital signs: Vital Signs Temp 98.7 F 12/06/17 04:00 Pulse 65 12/06/17 10:00 Resp 18 12/06/17 10:00 BP 116/57 12/06/17 10:00 Pulse Ox 93 L 12/06/17 10:00 Intake & Output 12/05/17 12/06/17 12/06/17 18:59 06:59 18:59 Intake Total 1563.243 508.343 137.631 Output Total 786 1380 350 Balance 777.243 -871.657 -212.369 Weight 101.2 kg 101 kg 101 kg Intake: IV 471 429 108 0.9 Pressure Bag 81 39 18 Cardiac Output 20 Lactated Ringers 1,000 ml 370 390 90 @ 20 mls/hr IV .Q24H [facility] Rx#:[id number] Intake, IV Titration 112.243 79.343 29.631 Amount Clevidipine Butyrate 25 18.667 mg In Empty Bag 1 bag @ 1 MG/HR 2 mls/hr IV .Q24H [facility] Rx#:[id number] Insulin Regular 100 unit 93.576 79.343 29.631 In Sodium Chloride 0.9% 100 ml @ Per Protocol IV .Q0M [facility] Rx#:[id number] Oral 980 Output: Chest Tube Drainage 420 230 0 Mediastinal 280 90 0 Right Lateral Chest 140 140 0 Urine 340 1150 350 Post Void Residual 26 Other: Voiding Method Indwelling Catheter Urinal # Voids 0 ABP, PAP, CO, CI - Last Documented Arterial Blood Pressure 160/49 Pulmonary Artery Pressure 34/15 Cardiac Output 6.7 Cardiac Index 3.2 - Exam Gen. appearance the patient is awake, comfortable no acute distress. Head exam was generally normal. There was no scleral icterus or corneal arcus. Mucous membranes were moist. Neck was supple and without jugular venous distension, thyromegaly, or carotid bruits. Carotids were easily palpable bilaterally. There was no adenopathy. The patient has a right IJ Cordis in place and the Whittier-Bon catheter has been removed. Lungs sounds are diminished in lung bases bilaterally along with some bibasilar crackles. Cardiac exam revealed the PMI to be normally situated and sized. The rhythm was regular and no extrasystoles were noted during several minutes of auscultation. The first and second heart sounds were normal and physiologic splitting of the second heart sound was noted. There were no murmurs, rubs, clicks, or gallops. Sternum stable clean and intact. The patient is a mediastinal chest tube anteriorly and the right pleural chest tube. Output were discussed earlier. Abdominal exam revealed normal bowel sounds. The abdomen was soft, non-tender, and without masses, organomegaly, or appreciable enlargement of the abdominal aorta. Examination of the extremities revealed easily palpable radial, femoral and pedal pulses. There was no cyanosis, clubbing or edema. Examination of the skin revealed no evidence of significant rashes, suspicious appearing nevi or other concerning lesions. Neurologically the patient is awake and alert and there is no focal neurological deficits. - Labs CBC & Chem 7: 12/06/17 08:03 12/06/17 04:05 Labs: Abnormal Lab Results - Last 24 Hours (Table) 08/02/1212/05/17 12/05/17 Range/Units 12:04 13:15 14:39 RBC (4.30-5.90) m/uL Hgb (13.0-17.5) gm/dL Hct (39.0-53.0) % Plt Count (150-450) k/uL Lymphocytes # (1.0-4.8) k/uL Sodium (137-145) mmol/L BUN (9-20) mg/dL Creatinine (0.66-1.25) mg/dL Glucose (74-99) mg/dL POC Glucose (mg/dL) 102 H 127 H 165 H (75-99) mg/dL Calcium (8.4-10.2) mg/dL Alkaline Phosphatase (38-126) U/L Total Protein (6.3-8.2) g/dL Albumin (3.5-5.0) g/dL 12/05/17 12/05/17 12/05/17 Range/Units 16:06 17:18 18:10 RBC (4.30-5.90) m/uL Hgb (13.0-17.5) gm/dL Hct (39.0-53.0) % Plt Count (150-450) k/uL Lymphocytes # (1.0-4.8) k/uL Sodium (137-145) mmol/L BUN (9-20) mg/dL Creatinine (0.66-1.25) mg/dL Glucose (74-99) mg/dL POC Glucose (mg/dL) 183 H 136 H 111 H (75-99) mg/dL Calcium (8.4-10.2) mg/dL Alkaline Phosphatase (38-126) U/L Total Protein (6.3-8.2) g/dL Albumin (3.5-5.0) g/dL 12/05/17 12/05/17 12/05/17 Range/Units 19:05 21:04 21:07 RBC (4.30-5.90) m/uL Hgb (13.0-17.5) gm/dL Hct (39.0-53.0) % Plt Count (150-450) k/uL Lymphocytes # (1.0-4.8) k/uL Sodium (137-145) mmol/L BUN (9-20) mg/dL Creatinine (0.66-1.25) mg/dL Glucose (74-99) mg/dL POC Glucose (mg/dL) 175 H 310 H 235 H (75-99) mg/dL Calcium (8.4-10.2) mg/dL Alkaline Phosphatase (38-126) U/L Total Protein (6.3-8.2) g/dL Albumin (3.5-5.0) g/dL 12/05/17 12/05/17 12/06/17 Range/Units 21:59 23:09 00:04 RBC (4.30-5.90) m/uL Hgb (13.0-17.5) gm/dL Hct (39.0-53.0) % Plt Count (150-450) k/uL Lymphocytes # (1.0-4.8) k/uL Sodium (137-145) mmol/L BUN (9-20) mg/dL Creatinine (0.66-1.25) mg/dL Glucose (74-99) mg/dL POC Glucose (mg/dL) 236 H 199 H 169 H (75-99) mg/dL Calcium (8.4-10.2) mg/dL Alkaline Phosphatase (38-126) U/L Total Protein (6.3-8.2) g/dL Albumin (3.5-5.0) g/dL 12/06/17 12/06/17 12/06/17 Range/Units 01:11 02:11 03:03 RBC (4.30-5.90) m/uL Hgb (13.0-17.5) gm/dL Hct (39.0-53.0) % Plt Count (150-450) k/uL Lymphocytes # (1.0-4.8) k/uL Sodium (137-145) mmol/L BUN (9-20) mg/dL Creatinine (0.66-1.25) mg/dL Glucose (74-99) mg/dL POC Glucose (mg/dL) 132 H 101 H 102 H (75-99) mg/dL Calcium (8.4-10.2) mg/dL Alkaline Phosphatase (38-126) U/L Total Protein (6.3-8.2) g/dL Albumin (3.5-5.0) g/dL 08/03/1512/06/17 12/06/17 Range/Units 04:03 04:05 04:05 RBC 2.81 L (4.30-5.90) m/uL Hgb 8.8 L D (13.0-17.5) gm/dL Hct 25.4 L (39.0-53.0) % Plt Count 97 L (150-450) k/uL Lymphocytes # (1.0-4.8) k/uL Sodium 129 L (137-145) mmol/L BUN 30 H (9-20) mg/dL Creatinine 1.30 H (0.66-1.25) mg/dL Glucose 111 H (74-99) mg/dL POC Glucose (mg/dL) 124 H (75-99) mg/dL Calcium 8.0 L (8.4-10.2) mg/dL Alkaline Phosphatase 33 L (38-126) U/L Total Protein 4.6 L (6.3-8.2) g/dL Albumin 2.7 L (3.5-5.0) g/dL 12/06/17 12/06/17 12/06/17 Range/Units 04:49 07:07 07:56 RBC (4.30-5.90) m/uL Hgb (13.0-17.5) gm/dL Hct (39.0-53.0) % Plt Count (150-450) k/uL Lymphocytes # (1.0-4.8) k/uL Sodium (137-145) mmol/L BUN (9-20) mg/dL Creatinine (0.66-1.25) mg/dL Glucose (74-99) mg/dL POC Glucose (mg/dL) 117 H 108 H 197 H (75-99) mg/dL Calcium (8.4-10.2) mg/dL Alkaline Phosphatase (38-126) U/L Total Protein (6.3-8.2) g/dL Albumin (3.5-5.0) g/dL 12/06/17 12/06/17 12/06/17 Range/Units 08:03 09:29 09:32 RBC 2.98 L (4.30-5.90) m/uL Hgb 9.1 L (13.0-17.5) gm/dL Hct 27.1 L (39.0-53.0) % Plt Count 95 L (150-450) k/uL Lymphocytes # 0.7 L (1.0-4.8) k/uL Sodium (137-145) mmol/L BUN (9-20) mg/dL Creatinine (0.66-1.25) mg/dL Glucose (74-99) mg/dL POC Glucose (mg/dL) 365 H 336 H (75-99) mg/dL Calcium (8.4-10.2) mg/dL Alkaline Phosphatase (38-126) U/L Total Protein (6.3-8.2) g/dL Albumin (3.5-5.0) g/dL 12/06/17 Range/Units 10:27 RBC (4.30-5.90) m/uL Hgb (13.0-17.5) gm/dL Hct (39.0-53.0) % Plt Count (150-450) k/uL Lymphocytes # (1.0-4.8) k/uL Sodium (137-145) mmol/L BUN (9-20) mg/dL Creatinine (0.66-1.25) mg/dL Glucose (74-99) mg/dL POC Glucose (mg/dL) 289 H (75-99) mg/dL Calcium (8.4-10.2) mg/dL Alkaline Phosphatase (38-126) U/L Total Protein (6.3-8.2) g/dL Albumin (3.5-5.0) g/dL Assessment and Plan Plan: Assessment 1 severe aortic stenosis and the patient is currently postop aortic valve replacement, postop day #2 2 post thoracotomy ventilator management. Patient was extubated without any major difficulties , chest tubes are possibly to be removed today. 3 nonocclusive coronary artery disease based on a preop cardiac catheterization 4 diabetes mellitus, currently on insulin drip for blood sugar control 5 hypertension, history of, maintained on a combination of antihypertensive medication including Norvasc, hydralazine, valsartan/hydrochlorothiazide 6 hyperlipidemia 7 anemia, and expected outcome of thoracic surgery and cardiac surgery 8 BPH, currently has a Hargrove catheter in place 9 bronchial asthma Plan Suggest addition of Norvasc for tighter blood pressure control. Continue the Coreg and may increase the dose as the patient is still hypertensive. Continue the hydralazine. Possible pneumonia and the chest tube. Incentive spirometer. Pain control. Ambulation. Transferred this patient to telemetry.
[2017-12-06 11:28] LABS: Glucose,Whole Blood 216 mg/dL (75-99)
--- NOTE | 2017-12-06 11:52 | P.PN ---
Subjective Progress Note Date: 12/06/17 Principal diagnosis: Aortic stenosis with respiratory failure Patient currently sitting up in chair denying chest pain, shortness breath, nausea, vomiting, dumping, dizziness, lightheadedness or blurry vision. Patient is showing concerned regarding his current medication regimen and that he takes it differently at home all his concerns and questions addressed at the bedside in the presence of the nursing staff. Objective - Vital Signs Vital signs: Vital Signs Temp 98.7 F 12/06/17 04:00 Pulse 65 12/06/17 10:00 Resp 18 12/06/17 10:00 BP 116/57 12/06/17 10:00 Pulse Ox 93 L 12/06/17 10:00 Intake & Output 12/05/17 12/06/17 12/06/17 18:59 06:59 18:59 Intake Total 1563.243 508.343 150.638 Output Total 786 1380 350 Balance 777.243 -871.657 -199.362 Weight 101.2 kg 101 kg 101 kg Intake: IV 471 429 108 0.9 Pressure Bag 81 39 18 Cardiac Output 20 Lactated Ringers 1,000 ml 370 390 90 @ 20 mls/hr IV .Q24H [facility] Rx#:[id number] Intake, IV Titration 112.243 79.343 42.638 Amount Clevidipine Butyrate 25 18.667 mg In Empty Bag 1 bag @ 1 MG/HR 2 mls/hr IV .Q24H [facility] Rx#:[id number] Insulin Regular 100 unit 93.576 79.343 42.638 In Sodium Chloride 0.9% 100 ml @ Per Protocol IV .Q0M [facility] Rx#:[id number] Oral 980 Output: Chest Tube Drainage 420 230 0 Mediastinal 280 90 0 Right Lateral Chest 140 140 0 Urine 340 1150 350 Post Void Residual 26 Other: Voiding Method Indwelling Catheter Urinal # Voids 0 ABP, PAP, CO, CI - Last Documented Arterial Blood Pressure 160/49 Pulmonary Artery Pressure 34/15 Cardiac Output 6.7 Cardiac Index 3.2 - Exam Gen.: In no acute distress Heart: Normal S1-S2 Lungs: Coarse breathing sounds bilaterally Abdomen: Soft, no tenderness, positive bowel sounds in all 4 quadrant no guarding or rebound Skin: No new rash Psych: Alert and oriented 3 Neuro: Moving all 4 extremities Hargrove catheter positive for clear urine in the bag Chest tube since stable in place Incisions all covered with dressing seems to be intact without obvious drainage - Labs CBC & Chem 7: 12/06/17 08:03 12/06/17 04:05 Labs: Abnormal Lab Results - Last 24 Hours (Table) 12/05/17 12/05/17 12/05/17 Range/Units 12:04 13:15 14:39 RBC (4.30-5.90) m/uL Hgb (13.0-17.5) gm/dL Hct (39.0-53.0) % Plt Count (150-450) k/uL Lymphocytes # (1.0-4.8) k/uL Sodium (137-145) mmol/L BUN (9-20) mg/dL Creatinine (0.66-1.25) mg/dL Glucose (74-99) mg/dL POC Glucose (mg/dL) 102 H 127 H 165 H (75-99) mg/dL Calcium (8.4-10.2) mg/dL Alkaline Phosphatase (38-126) U/L Total Protein (6.3-8.2) g/dL Albumin (3.5-5.0) g/dL 12/05/17 12/05/17 12/05/17 Range/Units 16:06 17:18 18:10 RBC (4.30-5.90) m/uL Hgb (13.0-17.5) gm/dL Hct (39.0-53.0) % Plt Count (150-450) k/uL Lymphocytes # (1.0-4.8) k/uL Sodium (137-145) mmol/L BUN (9-20) mg/dL Creatinine (0.66-1.25) mg/dL Glucose (74-99) mg/dL POC Glucose (mg/dL) 183 H 136 H 111 H (75-99) mg/dL Calcium (8.4-10.2) mg/dL Alkaline Phosphatase (38-126) U/L Total Protein (6.3-8.2) g/dL Albumin (3.5-5.0) g/dL 12/05/17 12/05/17 12/05/17 Range/Units 19:05 21:04 21:07 RBC (4.30-5.90) m/uL Hgb (13.0-17.5) gm/dL Hct (39.0-53.0) % Plt Count (150-450) k/uL Lymphocytes # (1.0-4.8) k/uL Sodium (137-145) mmol/L BUN (9-20) mg/dL Creatinine (0.66-1.25) mg/dL Glucose (74-99) mg/dL POC Glucose (mg/dL) 175 H 310 H 235 H (75-99) mg/dL Calcium (8.4-10.2) mg/dL Alkaline Phosphatase (38-126) U/L Total Protein (6.3-8.2) g/dL Albumin (3.5-5.0) g/dL 12/05/17 12/05/17 12/06/17 Range/Units 21:59 23:09 00:04 RBC (4.30-5.90) m/uL Hgb (13.0-17.5) gm/dL Hct (39.0-53.0) % Plt Count (150-450) k/uL Lymphocytes # (1.0-4.8) k/uL Sodium (137-145) mmol/L BUN (9-20) mg/dL Creatinine (0.66-1.25) mg/dL Glucose (74-99) mg/dL POC Glucose (mg/dL) 236 H 199 H 169 H (75-99) mg/dL Calcium (8.4-10.2) mg/dL Alkaline Phosphatase (38-126) U/L Total Protein (6.3-8.2) g/dL Albumin (3.5-5.0) g/dL 12/06/17 12/06/17 12/06/17 Range/Units 01:11 02:11 03:03 RBC (4.30-5.90) m/uL Hgb (13.0-17.5) gm/dL Hct (39.0-53.0) % Plt Count (150-450) k/uL Lymphocytes # (1.0-4.8) k/uL Sodium (137-145) mmol/L BUN (9-20) mg/dL Creatinine (0.66-1.25) mg/dL Glucose (74-99) mg/dL POC Glucose (mg/dL) 132 H 101 H 102 H (75-99) mg/dL Calcium (8.4-10.2) mg/dL Alkaline Phosphatase (38-126) U/L Total Protein (6.3-8.2) g/dL Albumin (3.5-5.0) g/dL 12/06/17 12/06/17 12/06/17 Range/Units 04:03 04:05 04:05 RBC 2.81 L (4.30-5.90) m/uL Hgb 8.8 L D (13.0-17.5) gm/dL Hct 25.4 L (39.0-53.0) % Plt Count 97 L (150-450) k/uL Lymphocytes # (1.0-4.8) k/uL Sodium 129 L (137-145) mmol/L BUN 30 H (9-20) mg/dL Creatinine 1.30 H (0.66-1.25) mg/dL Glucose 111 H (74-99) mg/dL POC Glucose (mg/dL) 124 H (75-99) mg/dL Calcium 8.0 L (8.4-10.2) mg/dL Alkaline Phosphatase 33 L (38-126) U/L Total Protein 4.6 L (6.3-8.2) g/dL Albumin 2.7 L (3.5-5.0) g/dL 12/06/17 12/06/17 12/06/17 Range/Units 04:49 07:07 07:56 RBC (4.30-5.90) m/uL Hgb (13.0-17.5) gm/dL Hct (39.0-53.0) % Plt Count (150-450) k/uL Lymphocytes # (1.0-4.8) k/uL Sodium (137-145) mmol/L BUN (9-20) mg/dL Creatinine (0.66-1.25) mg/dL Glucose (74-99) mg/dL POC Glucose (mg/dL) 117 H 108 H 197 H (75-99) mg/dL Calcium (8.4-10.2) mg/dL Alkaline Phosphatase (38-126) U/L Total Protein (6.3-8.2) g/dL Albumin (3.5-5.0) g/dL 12/06/17 12/06/17 12/06/17 Range/Units 08:03 09:29 09:32 RBC 2.98 L (4.30-5.90) m/uL Hgb 9.1 L (13.0-17.5) gm/dL Hct 27.1 L (39.0-53.0) % Plt Count 95 L (150-450) k/uL Lymphocytes # 0.7 L (1.0-4.8) k/uL Sodium (137-145) mmol/L BUN (9-20) mg/dL Creatinine (0.66-1.25) mg/dL Glucose (74-99) mg/dL POC Glucose (mg/dL) 365 H 336 H (75-99) mg/dL Calcium (8.4-10.2) mg/dL Alkaline Phosphatase (38-126) U/L Total Protein (6.3-8.2) g/dL Albumin (3.5-5.0) g/dL 12/06/17 12/06/17 Range/Units 10:27 11:26 RBC (4.30-5.90) m/uL Hgb (13.0-17.5) gm/dL Hct (39.0-53.0) % Plt Count (150-450) k/uL Lymphocytes # (1.0-4.8) k/uL Sodium (137-145) mmol/L BUN (9-20) mg/dL Creatinine (0.66-1.25) mg/dL Glucose (74-99) mg/dL POC Glucose (mg/dL) 289 H 216 H (75-99) mg/dL Calcium (8.4-10.2) mg/dL Alkaline Phosphatase (38-126) U/L Total Protein (6.3-8.2) g/dL Albumin (3.5-5.0) g/dL Assessment and Plan Assessment: 1. Status post aortic valve replacement 2. Debility and deconditioning 3. Ventilator dependent respiratory failure 4. Uncontrolled diabetes 5. Coronary artery disease 6. Hypertension currently hypotensive 7. Anemia, mixed etiology 8. Hyperlipidemia Patient is sitting up in chair, would continue supportive care, I would like to resume patient's on his home regimen for diabetes and hold metformin continue with insulin drip at this point plan discussed with patient and nursing staff at the bedside consideration for rehab consultation after stabilizing and transferring out of the ICU.
[2017-12-06 12:35] LABS: Glucose,Whole Blood 147 mg/dL (75-99)
[2017-12-06 13:31] LABS: Glucose,Whole Blood 155 mg/dL (75-99)
[2017-12-06] MEDS: LACTATED RINGERS 1,000 ML IV SCH (14:31)
[2017-12-06 14:32] LABS: Glucose,Whole Blood 265 mg/dL (75-99)
[2017-12-06 15:40] LABS: Glucose,Whole Blood 167 mg/dL (75-99)
[2017-12-06] MEDS: INSULIN ASPART 100 UNIT/ML 1 ML 10 ML VIAL SQ SCH (17:25)
[2017-12-06 18:03] LABS: Glucose,Whole Blood 163 mg/dL (75-99)
[2017-12-06 19:27] LABS: Glucose,Whole Blood 213 mg/dL (75-99)
[2017-12-06] MEDS: FINASTERIDE 5 MG TAB PO SCH (20:49)
[2017-12-06] MEDS: SENNOSIDES-DOCUSATE SODIUM 1 EACH TAB PO SCH (20:49)
[2017-12-06] MEDS: MONTELUKAST 10 MG TAB PO SCH (20:49)
[2017-12-06 21:34] LABS: Glucose,Whole Blood 333 mg/dL (75-99)
[2017-12-06 23:44] LABS: Glucose,Whole Blood 203 mg/dL (75-99)
[2017-12-07] MEDS: HYDROcodone/APAP 5-325MG 1 EACH TAB PO PRN ×4 (01:31→20:10)
[2017-12-07] MEDS: INSULIN REGULAR 100 UNIT in SODIUM CHLORIDE 0.9% 100 ML IV SCH (01:32)
[2017-12-07 01:34] LABS: Glucose,Whole Blood 140 mg/dL (75-99)
--- NOTE | 2017-12-07 03:51 | PN ---
PROGRESS NOTE This patient is status post aortic valve replacement. The patient is doing fairly well and remains stable. No dysrhythmias are noted. The patient's blood pressure is 132/61 mmHg, heart rate is 84 per minute, respirations are not labored. First and second heart sounds are normal. Lungs reveal good air entry on both sides. The patient's hemoglobin is 9.1. His sodium is low 129, patient's creatinine is 1.3 and BUN is 30. We will continue the patient on current medications. MMODL / IJN: [id number] /
[2017-12-07 04:05] LABS: Glucose,Whole Blood 109 mg/dL (75-99)
[2017-12-07 05:07] LABS: Glucose,Whole Blood 122 mg/dL (75-99)
[2017-12-07 06:24] LABS: Basophils % (A) 0 %; Eosinophils # (A) 0.3 k/uL (0-0.7); Eosinophils % (A) 4 %; HCT 26.8 % (39.0-53.0); HGB 8.9 gm/dL (13.0-17.5); Lymphocytes # (A) 0.8 k/uL (1.0-4.8); Lymphocytes % (A) 11 %; MCH 30.4 pg (25.0-35.0); MCHC 33.1 g/dL (31.0-37.0); MCV 91.9 fL (80.0-100.0); Mean Platelet Volume 8.8; Monocytes # (A) 0.6 k/uL (0-1.0); Monocytes % (A) 8 %; Neutrophils # (A) 5.5 k/uL (1.3-7.7); Neutrophils % (A) 75 %; Platelet Count 114 k/uL (150-450); RBC 2.92 m/uL (4.30-5.90); RDW 14.1 % (11.5-15.5); WBC 7.3 k/uL (3.8-10.6)
[2017-12-07] MEDS: ONDANSETRON 4 MG/2 ML VIAL IVP PRN ×3 (06:28→22:35)
--- NOTE | 2017-12-07 06:28 | XR ---
EXAMINATION TYPE: XR chest 2V DATE OF EXAM: 12/07/2017 HISTORY: post cardiac surgery. REFERENCE: Previous study dated 12/06/2017. FINDINGS: There has been a midline sternotomy. The patient right internal jugular sheath is been rosa elena norma. The patient's right pleural drain has been removed. The heart remains enlarged. There is left basilar atelectasis. I suspect a small left effusion. IMPRESSION: CONTINUING POSTOPERATIVE CHANGE.
[2017-12-07 06:30] LABS: Ionized Calcium 4.8 mg/dL (4.5-5.3)
[2017-12-07] MEDS: PANTOPRAZOLE 40 MG TABLET PO SCH (06:42)
[2017-12-07 06:45] LABS: Glucose,Whole Blood 196 mg/dL (75-99)
[2017-12-07 06:47] LABS: Calcium 8.4 mg/dL (8.4-10.2); Magnesium 2.3 mg/dL (1.6-2.3); Potassium 4.5 mmol/L (3.5-5.1); Total Bilirubin 0.6 mg/dL (0.2-1.3); Total Protein 5.1 g/dL (6.3-8.2)
[2017-12-07] MEDS: IPRATROPIUM-ALBUTEROL 3 ML NEB INHALATION SCH ×4 (08:10→20:28)
[2017-12-07] MEDS: INSULIN ASPART 100 UNIT/ML 1 ML 10 ML VIAL SQ SCH ×4 (08:39→21:48)
[2017-12-07] MEDS: MAGNESIUM HYDROXIDE 2,400 MG/10 ML CUP PO PRN (08:41)
[2017-12-07] MEDS: ASPIRIN 325 MG TAB PO SCH (08:42)
[2017-12-07] MEDS: hydrALAZINE HCL 25 MG TAB PO SCH ×3 (08:42→23:39)
[2017-12-07] MEDS: ATORVASTATIN 40 MG TAB PO SCH (08:42)
[2017-12-07] MEDS: HEPARIN SODIUM,PORCINE 5,000 UNIT/ML 1 ML VIAL SQ SCH ×3 (08:42→23:39)
[2017-12-07] MEDS: CLOPIDOGREL 75 MG TAB PO SCH (08:42)
[2017-12-07] MEDS: DOXAZOSIN 4 MG TAB PO SCH ×2 (08:42→20:12)
[2017-12-07] MEDS: CARVEDILOL 6.25 MG TAB PO SCH ×2 (08:43→20:12)
[2017-12-07 08:59] LABS: Glucose,Whole Blood 206 mg/dL (75-99)
--- NOTE | 2017-12-07 09:06 | P.PN ---
Subjective Progress Note Date: 12/07/17 Principal diagnosis: Severe calcific aortic valve stenosis. Mild aortic valve regurgitation. Mild to moderate mitral valve regurgitation. Preserved left ventricular function with preoperative EF 50-55%. Diabetes with preoperative hemoglobin A1c 7.0%. Hyperlipidemia. Hypertension. Previous tobacco dependence. Mild COPD with preoperative FEV1 70% of predicted. History of syncope. History of previous non-STEMI in October of this year, RCA stenosis 30-40%. Obesity. POD #3 aortic valve replacement using a 23 mm bovine bioprosthesis, Inspiris. Exclusion of the left atrial appendage using a 35 mm AtriClip. Intraoperative transesophageal echocardiogram and epi-aortic scanning. Postoperative acute blood loss anemia, an expected outcome of surgery given hemodilution and use of cardiopulmonary bypass pump. Postoperative thrombocytopenia, an expected outcome. The patient is currently sitting up in a chair in no acute distress. States pain is controlled with current medication regimen. Does complain of nausea and decreased appetite as well as peeling occasional pins and needles in his lower extremities from the SCDs. Denies shortness of breath. Was transferred out of ICU to [facility] care yesterday. Chest tubes, Hargrove, Cordis, arterial line were discontinued yesterday. Patient does remain on insulin drip per Dr. Pulido for hyperglycemia. Objective - Vital Signs Vital signs: Vital Signs Temp 97.2 F L 12/07/17 04:00 Pulse 72 12/07/17 08:35 Resp 18 12/07/17 04:00 BP 142/83 12/07/17 04:00 Pulse Ox 95 12/07/17 04:00 Intake & Output 12/06/17 12/07/17 12/07/17 18:59 06:59 18:59 Intake Total 546.391 225.066 368.8 Output Total 650 Balance -103.609 225.066 368.8 Weight 101 kg 100.7 kg Intake: IV 236 160 0.9 Pressure Bag 36 Lactated Ringers 1,000 ml 200 160 @ 20 mls/hr IV .Q24H [facility] Rx#:[id number] Intake, IV Titration 70.391 65.066 8.8 Amount Insulin Regular 100 unit 70.391 In Sodium Chloride 0.9% 100 ml @ Per Protocol IV .Q0M [facility] Rx#:[id number] Insulin Regular 100 unit 65.066 8.8 In Sodium Chloride 0.9% 100 ml @ Titrate IV .Q0M [facility] Rx#:[id number] Oral 240 360 Output: Chest Tube Drainage 0 Mediastinal 0 Right Lateral Chest 0 Urine 650 Other: Voiding Method Urinal Toilet # Voids 0 4 ABP, PAP, CO, CI - Last Documented Arterial Blood Pressure 126/50 Pulmonary Artery Pressure 34/15 Cardiac Output 6.7 Cardiac Index 3.2 - Constitutional General appearance: Present: cooperative, no acute distress, obese - Respiratory Details: Lungs sounds diminished bilaterally. Respirations even, nonlabored. Currently on room air with oxygen saturation 95%. Able to achieve 1000 mL on his incentive spirometry. Effective cough. - Cardiovascular Details: S1, S2 present. Regular rate and rhythm, sinus rhythm with occasional PVCs on telemetry. Sternum stable. A/V epicardial pacemaker wires present, grounded. Palpable peripheral pulses bilaterally. No edema present. No calf pain or tenderness noted. Heart hugger in place with patient demonstrating appropriate use. Antiembolism stockings, SCDs present. - Gastrointestinal Gastrointestinal Comment(s): Abdomen soft, nontender, nondistended. Hypoactive bowel sounds present 4 quadrants. Tolerating minimal diet. Positive flatus, negative BM. - Genitourinary Genitourinary Comment(s): Patient continues to void clear, yellow urine. Output 150-200 mL at a time. - Integumentary Integumentary Comment(s): Skin is warm and dry with evidence of good perfusion. Anterior chest incision well approximated and covered with dry intact dressing. - Neurologic Neurologic: Present: CNII-XII intact - Musculoskeletal Musculoskeletal: Present: gait normal, strength equal bilaterally - Psychiatric Psychiatric: Present: A&O x's 3, appropriate affect, intact judgment & insight - Allied health notes Allied health notes reviewed: nursing - Labs CBC & Chem 7: 12/07/17 05:37 12/07/17 05:37 Labs: Abnormal Lab Results - Last 24 Hours (Table) 12/06/17 12/06/17 12/06/17 Range/Units 09:29 09:32 10:27 RBC (4.30-5.90) m/uL Hgb (13.0-17.5) gm/dL Hct (39.0-53.0) % Plt Count (150-450) k/uL Lymphocytes # (1.0-4.8) k/uL Sodium (137-145) mmol/L BUN (9-20) mg/dL Glucose (74-99) mg/dL POC Glucose (mg/dL) 365 H 336 H 289 H (75-99) mg/dL Total Protein (6.3-8.2) g/dL Albumin (3.5-5.0) g/dL 12/06/17 12/06/17 12/06/17 Range/Units 11:26 12:33 13:28 RBC (4.30-5.90) m/uL Hgb (13.0-17.5) gm/dL Hct (39.0-53.0) % Plt Count (150-450) k/uL Lymphocytes # (1.0-4.8) k/uL Sodium (137-145) mmol/L BUN (9-20) mg/dL Glucose (74-99) mg/dL POC Glucose (mg/dL) 216 H 147 H 155 H (75-99) mg/dL Total Protein (6.3-8.2) g/dL Albumin (3.5-5.0) g/dL 12/06/17 12/06/17 12/06/17 Range/Units 14:30 15:38 17:43 RBC (4.30-5.90) m/uL Hgb (13.0-17.5) gm/dL Hct (39.0-53.0) % Plt Count (150-450) k/uL Lymphocytes # (1.0-4.8) k/uL Sodium (137-145) mmol/L BUN (9-20) mg/dL Glucose (74-99) mg/dL POC Glucose (mg/dL) 265 H 167 H 163 H (75-99) mg/dL Total Protein (6.3-8.2) g/dL Albumin (3.5-5.0) g/dL 12/06/17 12/06/17 12/06/17 Range/Units 19:26 21:22 23:33 RBC (4.30-5.90) m/uL Hgb (13.0-17.5) gm/dL Hct (39.0-53.0) % Plt Count (150-450) k/uL Lymphocytes # (1.0-4.8) k/uL Sodium (137-145) mmol/L BUN (9-20) mg/dL Glucose (74-99) mg/dL POC Glucose (mg/dL) 213 H 333 H 203 H (75-99) mg/dL Total Protein (6.3-8.2) g/dL Albumin (3.5-5.0) g/dL 12/07/17 12/07/17 12/07/17 Range/Units 01:24 03:53 04:56 RBC (4.30-5.90) m/uL Hgb (13.0-17.5) gm/dL Hct (39.0-53.0) % Plt Count (150-450) k/uL Lymphocytes # (1.0-4.8) k/uL Sodium (137-145) mmol/L BUN (9-20) mg/dL Glucose (74-99) mg/dL POC Glucose (mg/dL) 140 H 109 H 122 H (75-99) mg/dL Total Protein (6.3-8.2) g/dL Albumin (3.5-5.0) g/dL 12/07/17 12/07/17 12/07/17 Range/Units 05:37 05:37 06:33 RBC 2.92 L (4.30-5.90) m/uL Hgb 8.9 L (13.0-17.5) gm/dL Hct 26.8 L (39.0-53.0) % Plt Count 114 L (150-450) k/uL Lymphocytes # 0.8 L (1.0-4.8) k/uL Sodium 132 L (137-145) mmol/L BUN 25 H (9-20) mg/dL Glucose 133 H (74-99) mg/dL POC Glucose (mg/dL) 196 H (75-99) mg/dL Total Protein 5.1 L (6.3-8.2) g/dL Albumin 3.0 L (3.5-5.0) g/dL - Imaging and Cardiology Chest x-ray: report reviewed, image reviewed Assessment and Plan (1) COPD (chronic obstructive pulmonary disease) Current Visit: Yes Status: Chronic Code(s): J44.9 - CHRONIC OBSTRUCTIVE PULMONARY DISEASE, UNSPECIFIED SNOMED Code(s): 38699923 (2) Obesity (BMI 30-39.9) Current Visit: Yes Status: Chronic Code(s): E66.9 - OBESITY, UNSPECIFIED SNOMED Code(s): 010923338 (3) History of myocardial infarction Current Visit: No Status: Resolved Code(s): I25.2 - OLD MYOCARDIAL INFARCTION SNOMED Code(s): 971285202 (4) Diabetes mellitus Current Visit: Yes Status: Chronic Code(s): E11.9 - TYPE 2 DIABETES MELLITUS WITHOUT COMPLICATIONS SNOMED Code(s): 99537821 (5) Family history of heart disease Current Visit: Yes Status: Chronic Code(s): Z82.49 - FAMILY HX OF ISCHEM HEART DIS AND OTH DIS OF THE CIRC SYS SNOMED Code(s): 958751851 (6) Hyperlipidemia Current Visit: Yes Status: Chronic Code(s): E78.5 - HYPERLIPIDEMIA, UNSPECIFIED SNOMED Code(s): 75354422 (7) Hypertension Current Visit: Yes Status: Chronic Code(s): I10 - ESSENTIAL (PRIMARY) HYPERTENSION SNOMED Code(s): 02854973 (8) Severe aortic stenosis Current Visit: Yes Status: Chronic Code(s): I35.0 - NONRHEUMATIC AORTIC ( VALVE) STENOSIS SNOMED Code(s): 52179228 (9) Tobacco dependence in remission Current Visit: No Status: Resolved Code(s): F17.201 - NICOTINE DEPENDENCE, UNSPECIFIED, IN REMISSION SNOMED Code(s): 470914131 Plan: 1. Continue aspirin, statin, Plavix, heparin subcu, hydralazine, beta erasto. Will increase beta erasto therapy as tolerated. Will add back in Norvasc. 2. Encourage incentive spirometry is 10 times every hour. 3. Increase activity, ambulate in hallway, PT/OT/cardiac rehab following. 4. Continue Proscar, Cardura for prostate disorder. 5. Will monitor daily labs and x-rays. No need for transfusion at this point. 6. Insulin/diabetic management per primary care service. 7. Pain control was ordered medication regimen. 8. Bronchodilators per pulmonology. 9. More recommendations to follow dependent on patient's progress. 10. Discharge planning and progress. Likely will discharge in the next 24-48 hours dependent on recommendations from PT/OT. Time with Patient: Greater than 30
[2017-12-07 10:48] LABS: Glucose,Whole Blood 177 mg/dL (75-99)
[2017-12-07] MEDS: amLODIPine 2.5 MG TAB PO SCH ×2 (11:16→20:12)
[2017-12-07] MEDS: MUPIROCIN 2% OINT 22 GM TUBE NASAL SCH ×2 (11:16→20:11)
[2017-12-07 12:41] LABS: Glucose,Whole Blood 218 mg/dL (75-99)
--- NOTE | 2017-12-07 12:52 | P.PN ---
Subjective Progress Note Date: 12/07/17 This is a 72-year-old male patient who underwent an aortic valve replacement and the patient is currently in the intensive care unit intubated on a mechanical ventilator and I was consulted for postoperative care. The patient is known to have aortic stenosis, hypertension, hyperlipidemia, diabetes mellitus, and bronchial asthma. He is an ex-smoker. The patient was having exertional dyspnea and 2 episodes of syncope. Cardiac catheterization was done and it showed a 30-40% disease involving the right coronary artery and the rest of the coronaries were all within normal limits. The preoperative valve area was 0.7 cm. Based on this, surgery was done. Currently the patient is intubated on a mechanical ventilator. He is sedated with Diprivan. I have switched this patient to an assist-control mode of ventilation at the rate of 12 , tidal volume of 580, FiO2 was dropped down to 80% and PEEP is at 5. The postop blood gases showed a pH of 7.33 with a pCO2 of 49 and pO2 of 130 and this was on the fourth of 100%. He is hemodynamically stable. He is currently on Cleviprex drip which is running at 8 mg an hour. The patient's cardiac index is at 2.5. Cardiac up as of 5.3. PA pressures are 35/21. The right- sided chest tube was placed without 30 mL and the mediastinal chest tube has put out 70 mL the patient's arrival from the operating room. Urine output is in order of 35 mL an hour. Chest x-ray shows postoperative findings with an accurate positioning of ET tube, [place] catheter and chest tube. There is possibly development of a left-sided pleural effusion. There is only vessel congestion/early edema based on chest x-ray findings. On 12/05/2017, I'm seeing this patient for a follow-up. The patient is postop day #1 following an aortic valve replacement surgery. The patient's surgery was successful. The patient was extubated within a few hours of arriving to the intensive care unit. This was a smooth extubation. Patient is currently on oxygen at 2 L/m nasal cannula and the pulse ox is 94%. The chest x-ray from this morning shows improvement in the volume status. Improvement in aeration. There is a right-sided chest tube and the mediastinal chest tube. No evidence of any air leak from the chest tubes. The output from the mediastinal chest tube has been around 510 mL over the past 18 hours and output from the right pleural chest tube is 380 mL over the past 18 hours. No evidence of any air leak. Today's hemoglobin is at 10.3. The patient remains on Cleviprex drip at 4 mg an hour. Lopressor was started a dose of 12.5 mg by mouth twice a day. He has sinus with a heart rate in the mid 60s and the patient is producing good amount of urine output. Renal function is stable. No other specific complaints. He is using incentive spirometer. Sternum stable clean and intact. On 12/06/2017 I'm seeing this patient for a follow-up postop day #2 following an aortic valve replacement. He is doing extremely well. Chest tube output is minimal at this point in time. He is ambulating. Is on room air. No respiratory difficulties. He is off the Cleviprex drip. He is back on hydralazine and Coreg. I think he will ultimately need the addition of Norvasc for a tighter blood pressure control. Blood sugars remained elevated and the patient is still in need for a insulin drip. The patient is using incentive spirometer. The hemoglobin stable at 9.1. No other significant events per no change in mental status. Pain is under good control. He has a normal urine output. No other significant events otherwise overnight. Cardiac rhythm is sinus. On 12/07/2017 patient is postop day #3 following an aortic valve replacement. All of the chest tubes are out and the patient's chest x-ray shows some small atelectatic changes and confusion lung bases bilaterally. No pneumothorax. No respiratory distress. Pulse ox is above 90% on room air. The patient hasno respiratory difficulties. Sternum stable clean and intact. His only complaint is nausea today for which she was given Zofran. The patient has not developed any bowel activity yet. No abdominal distention. He was given milk of magnesia and prune juice. His son insulin 4 units an hour drip for blood sugar control. Objective - Vital Signs Vital signs: Vital Signs Temp 98.2 F 12/07/17 08:53 Pulse 72 12/07/17 08:53 Resp 18 12/07/17 08:53 BP 134/65 12/07/17 08:53 Pulse Ox 97 12/07/17 08:53 Intake & Output 12/06/17 12/07/17 12/07/17 18:59 06:59 18:59 Intake Total 546.391 225.066 378.217 Output Total 650 Balance -103.609 225.066 378.217 Weight 101 kg 100.7 kg Intake: IV 236 160 0.9 Pressure Bag 36 Lactated Ringers 1,000 ml 200 160 @ 20 mls/hr IV .Q24H [facility] Rx#:[id number] Intake, IV Titration 70.391 65.066 18.217 Amount Insulin Regular 100 unit 70.391 In Sodium Chloride 0.9% 100 ml @ Per Protocol IV .Q0M [facility] Rx#:[id number] Insulin Regular 100 unit 65.066 18.217 In Sodium Chloride 0.9% 100 ml @ Titrate IV .Q0M [facility] Rx#:[id number] Oral 240 360 Output: Chest Tube Drainage 0 Mediastinal 0 Right Lateral Chest 0 Urine 650 Other: Voiding Method Urinal Toilet Toilet # Voids 0 4 ABP, PAP, CO, CI - Last Documented Arterial Blood Pressure 126/50 Pulmonary Artery Pressure 34/15 Cardiac Output 6.7 Cardiac Index 3.2 - Exam Gen. appearance the patient is awake, comfortable no acute distress. Head exam was generally normal. There was no scleral icterus or corneal arcus. Mucous membranes were moist. Neck was supple and without jugular venous distension, thyromegaly, or carotid bruits. Carotids were easily palpable bilaterally. There was no adenopathy. Lungs sounds are diminished in lung bases bilaterally along with some bibasilar crackles. All of the chest tubes are removed Cardiac exam revealed the PMI to be normally situated and sized. The rhythm was regular and no extrasystoles were noted during several minutes of auscultation. The first and second heart sounds were normal and physiologic splitting of the second heart sound was noted. There were no murmurs, rubs, clicks, or gallops. Sternum stable clean and intact. The patient is a mediastinal chest tube anteriorly and the right pleural chest tube. Output were discussed earlier. Abdominal exam revealed hypoactive bowel sounds. The abdomen was soft, non- tender, and without masses, organomegaly, or appreciable enlargement of the abdominal aorta. Examination of the extremities revealed easily palpable radial, femoral and pedal pulses. There was no cyanosis, clubbing or edema. Examination of the skin revealed no evidence of significant rashes, suspicious appearing nevi or other concerning lesions. Neurologically the patient is awake and alert and there is no focal neurological deficits. - Labs CBC & Chem 7: 12/07/17 05:37 12/07/17 05:37 Labs: Abnormal Lab Results - Last 24 Hours (Table) 12/06/17 12/06/17 12/06/17 Range/Units 12:33 13:28 14:30 RBC (4.30-5.90) m/uL Hgb (13.0-17.5) gm/dL Hct (39.0-53.0) % Plt Count (150-450) k/uL Lymphocytes # (1.0-4.8) k/uL Sodium (137-145) mmol/L BUN (9-20) mg/dL Glucose (74-99) mg/dL POC Glucose (mg/dL) 147 H 155 H 265 H (75-99) mg/dL Total Protein (6.3-8.2) g/dL Albumin (3.5-5.0) g/dL 12/06/17 12/06/17 12/06/17 Range/Units 15:38 17:43 19:26 RBC (4.30-5.90) m/uL Hgb (13.0-17.5) gm/dL Hct (39.0-53.0) % Plt Count (150-450) k/uL Lymphocytes # (1.0-4.8) k/uL Sodium (137-145) mmol/L BUN (9-20) mg/dL Glucose (74-99) mg/dL POC Glucose (mg/dL) 167 H 163 H 213 H (75-99) mg/dL Total Protein (6.3-8.2) g/dL Albumin (3.5-5.0) g/dL 12/06/17 12/06/17 12/07/17 Range/Units 21:22 23:33 01:24 RBC (4.30-5.90) m/uL Hgb (13.0-17.5) gm/dL Hct (39.0-53.0) % Plt Count (150-450) k/uL Lymphocytes # (1.0-4.8) k/uL Sodium (137-145) mmol/L BUN (9-20) mg/dL Glucose (74-99) mg/dL POC Glucose (mg/dL) 333 H 203 H 140 H (75-99) mg/dL Total Protein (6.3-8.2) g/dL Albumin (3.5-5.0) g/dL 12/07/17 12/07/17 12/07/17 Range/Units 03:53 04:56 05:37 RBC (4.30-5.90) m/uL Hgb (13.0-17.5) gm/dL Hct (39.0-53.0) % Plt Count (150-450) k/uL Lymphocytes # (1.0-4.8) k/uL Sodium 132 L (137-145) mmol/L BUN 25 H (9-20) mg/dL Glucose 133 H (74-99) mg/dL POC Glucose (mg/dL) 109 H 122 H (75-99) mg/dL Total Protein 5.1 L (6.3-8.2) g/dL Albumin 3.0 L (3.5-5.0) g/dL 12/07/17 12/07/17 12/07/17 Range/Units 05:37 06:33 08:45 RBC 2.92 L (4.30-5.90) m/uL Hgb 8.9 L (13.0-17.5) gm/dL Hct 26.8 L (39.0-53.0) % Plt Count 114 L (150-450) k/uL Lymphocytes # 0.8 L (1.0-4.8) k/uL Sodium (137-145) mmol/L BUN (9-20) mg/dL Glucose (74-99) mg/dL POC Glucose (mg/dL) 196 H 206 H (75-99) mg/dL Total Protein (6.3-8.2) g/dL Albumin (3.5-5.0) g/dL 12/07/17 Range/Units 10:37 RBC (4.30-5.90) m/uL Hgb (13.0-17.5) gm/dL Hct (39.0-53.0) % Plt Count (150-450) k/uL Lymphocytes # (1.0-4.8) k/uL Sodium (137-145) mmol/L BUN (9-20) mg/dL Glucose (74-99) mg/dL POC Glucose (mg/dL) 177 H (75-99) mg/dL Total Protein (6.3-8.2) g/dL Albumin (3.5-5.0) g/dL Assessment and Plan Plan: Assessment 1 severe aortic stenosis and the patient is currently postop aortic valve replacement, postop day #3 2 post thoracotomy ventilator management. Patient was extubated without any major difficulties , chest tubes are possibly to be removed today. 3 nonocclusive coronary artery disease based on a preop cardiac catheterization 4 diabetes mellitus, currently on insulin drip for blood sugar control 5 hypertension, history of, maintained on a combination of antihypertensive medication including Norvasc, hydralazine, valsartan/hydrochlorothiazide 6 hyperlipidemia 7 anemia, and expected outcome of thoracic surgery and cardiac surgery 8 BPH, currently has a Hargrove catheter in place 9 bronchial asthma 10 nausea Plan We'll proceed with Zofran for nausea. We will give the patient medical neck and prune juice to improve and has bowel activity. Continue insulin drip for blood sugar control for today. The blood pressure control has improved. The patient is on Norvasc 2.5 mg twice a day, Coreg 6.25 mg twice a day, hydralazine 25 mg every 8 hours. Using incentive spirometer. All of the chest tubes are out. Pulse ox above 90% on room air. We'll continue to follow.
[2017-12-07 15:06] LABS: Glucose,Whole Blood 255 mg/dL (75-99)
[2017-12-07 16:40] LABS: Glucose,Whole Blood 171 mg/dL (75-99)
--- NOTE | 2017-12-07 18:39 | P.PN ---
Subjective Progress Note Date: 12/07/17 Principal diagnosis: Aortic stenosis with respiratory failure Patient currently sitting up in chair denying chest pain, shortness breath, nausea, vomiting, dumping, dizziness, lightheadedness or blurry vision. Patient felt nauseous this morning and Zofran was administered with decent results patient is concerned about himself having no bowel movements in the last few days and would like some stool softener Objective - Vital Signs Vital signs: Vital Signs Temp 98.1 F 12/07/17 12:00 Pulse 72 12/07/17 16:10 Resp 18 12/07/17 16:00 BP 128/64 12/07/17 12:00 Pulse Ox 96 12/07/17 12:00 Intake & Output 12/06/17 12/07/17 12/07/17 18:59 06:59 18:59 Intake Total 546.391 225.066 894.476 Output Total 650 Balance -103.609 225.066 894.476 Weight 101 kg 100.7 kg Intake: IV 236 160 0.9 Pressure Bag 36 Lactated Ringers 1,000 ml 200 160 @ 20 mls/hr IV .Q24H [facility] Rx#:[id number] Intake, IV Titration 70.391 65.066 54.476 Amount Insulin Regular 100 unit 70.391 In Sodium Chloride 0.9% 100 ml @ Per Protocol IV .Q0M [facility] Rx#:[id number] Insulin Regular 100 unit 65.066 54.476 In Sodium Chloride 0.9% 100 ml @ Titrate IV .Q0M [facility] Rx#:[id number] Oral 240 840 Output: Chest Tube Drainage 0 Mediastinal 0 Right Lateral Chest 0 Urine 650 Other: Voiding Method Urinal Toilet Toilet # Voids 0 4 1 ABP, PAP, CO, CI - Last Documented Arterial Blood Pressure 126/50 Pulmonary Artery Pressure 34/15 Cardiac Output 6.7 Cardiac Index 3.2 - Exam Gen.: In no acute distress Heart: Normal S1-S2 Lungs: Coarse breathing sounds bilaterally Abdomen: Soft, no tenderness, positive bowel sounds in all 4 quadrant no guarding or rebound Skin: No new rash Psych: Alert and oriented 3 Neuro: Moving all 4 extremities Hargrove catheter positive for clear urine in the bag Chest tube since stable in place Incisions all covered with dressing seems to be intact without obvious drainage - Labs CBC & Chem 7: 12/07/17 05:37 12/07/17 05:37 Labs: Abnormal Lab Results - Last 24 Hours (Table) 12/06/17 12/06/17 12/06/17 Range/Units 19:26 21:22 23:33 RBC (4.30-5.90) m/uL Hgb (13.0-17.5) gm/dL Hct (39.0-53.0) % Plt Count (150-450) k/uL Lymphocytes # (1.0-4.8) k/uL Sodium (137-145) mmol/L BUN (9-20) mg/dL Glucose (74-99) mg/dL POC Glucose (mg/dL) 213 H 333 H 203 H (75-99) mg/dL Total Protein (6.3-8.2) g/dL Albumin (3.5-5.0) g/dL 12/07/17 12/07/17 12/07/17 Range/Units 01:24 03:53 04:56 RBC (4.30-5.90) m/uL Hgb (13.0-17.5) gm/dL Hct (39.0-53.0) % Plt Count (150-450) k/uL Lymphocytes # (1.0-4.8) k/uL Sodium (137-145) mmol/L BUN (9-20) mg/dL Glucose (74-99) mg/dL POC Glucose (mg/dL) 140 H 109 H 122 H (75-99) mg/dL Total Protein (6.3-8.2) g/dL Albumin (3.5-5.0) g/dL 12/07/17 12/07/17 12/07/17 Range/Units 05:37 05:37 06:33 RBC 2.92 L (4.30-5.90) m/uL Hgb 8.9 L (13.0-17.5) gm/dL Hct 26.8 L (39.0-53.0) % Plt Count 114 L (150-450) k/uL Lymphocytes # 0.8 L (1.0-4.8) k/uL Sodium 132 L (137-145) mmol/L BUN 25 H (9-20) mg/dL Glucose 133 H (74-99) mg/dL POC Glucose (mg/dL) 196 H (75-99) mg/dL Total Protein 5.1 L (6.3-8.2) g/dL Albumin 3.0 L (3.5-5.0) g/dL 12/07/17 12/07/17 12/07/17 Range/Units 08:45 10:37 12:29 RBC (4.30-5.90) m/uL Hgb (13.0-17.5) gm/dL Hct (39.0-53.0) % Plt Count (150-450) k/uL Lymphocytes # (1.0-4.8) k/uL Sodium (137-145) mmol/L BUN (9-20) mg/dL Glucose (74-99) mg/dL POC Glucose (mg/dL) 206 H 177 H 218 H (75-99) mg/dL Total Protein (6.3-8.2) g/dL Albumin (3.5-5.0) g/dL 12/07/17 12/07/17 Range/Units 14:40 16:32 RBC (4.30-5.90) m/uL Hgb (13.0-17.5) gm/dL Hct (39.0-53.0) % Plt Count (150-450) k/uL Lymphocytes # (1.0-4.8) k/uL Sodium (137-145) mmol/L BUN (9-20) mg/dL Glucose (74-99) mg/dL POC Glucose (mg/dL) 255 H 171 H (75-99) mg/dL Total Protein (6.3-8.2) g/dL Albumin (3.5-5.0) g/dL Assessment and Plan Assessment: 1. Status post aortic valve replacement 2. Debility and deconditioning 3. Ventilator dependent respiratory failure 4. Uncontrolled diabetes 5. Coronary artery disease 6. Hypertension currently hypotensive 7. Anemia, mixed etiology 8. Hyperlipidemia We'll continue with Zofran as needed for nausea, continue MiraLAX daily and I would like to provide suppository. I would like to discontinue insulin drip 1 hour after administering metformin I would like to resume his home dose continue with insulin sliding scale and consider discharging patients on his home regimen. We'll repeat blood work in the morning and monitor vital signs closely and consider discharge based on physical medicine and rehabilitation recommendation to them patient's" program .
[2017-12-07] MEDS: metFORMIN 500 MG TAB PO SCH (18:48)
[2017-12-07 18:55] LABS: Glucose,Whole Blood 146 mg/dL (75-99)
[2017-12-07] MEDS: FINASTERIDE 5 MG TAB PO SCH (20:12)
[2017-12-07] MEDS: MONTELUKAST 10 MG TAB PO SCH (20:12)
[2017-12-07] MEDS: SENNOSIDES-DOCUSATE SODIUM 1 EACH TAB PO SCH (20:14)
[2017-12-07 21:41] LABS: Glucose,Whole Blood 167 mg/dL (75-99)
[2017-12-08] MEDS: HYDROcodone/APAP 5-325MG 1 EACH TAB PO PRN ×3 (03:52→15:01)
[2017-12-08 04:40] VITALS: TEMP 97.6
[2017-12-08 05:56] LABS: Glucose,Whole Blood 148 mg/dL (75-99)
[2017-12-08] MEDS: INSULIN ASPART 100 UNIT/ML 1 ML 10 ML VIAL SQ SCH ×2 (06:26→12:34)
[2017-12-08] MEDS: metFORMIN 500 MG TAB PO SCH ×2 (06:27→17:37)
[2017-12-08] MEDS: PANTOPRAZOLE 40 MG TABLET PO SCH (06:28)
[2017-12-08 07:05] LABS: Basophils % (A) 0 %; Eosinophils # (A) 0.4 k/uL (0-0.7); Eosinophils % (A) 7 %; HCT 26.5 % (39.0-53.0); HGB 8.6 gm/dL (13.0-17.5); Lymphocytes # (A) 0.9 k/uL (1.0-4.8); Lymphocytes % (A) 15 %; MCH 30.5 pg (25.0-35.0); MCHC 32.6 g/dL (31.0-37.0); MCV 93.7 fL (80.0-100.0); Mean Platelet Volume 8.2; Monocytes # (A) 0.5 k/uL (0-1.0); Monocytes % (A) 8 %; Neutrophils % (A) 68 %; Platelet Count 122 k/uL (150-450); RBC 2.83 m/uL (4.30-5.90); RDW 14.2 % (11.5-15.5); WBC 5.9 k/uL (3.8-10.6)
[2017-12-08 07:29] LABS: Albumin 3.1 g/dL (3.5-5.0); Calcium 8.6 mg/dL (8.4-10.2); Magnesium 2.7 mg/dL (1.6-2.3); Potassium 5.2 mmol/L (3.5-5.1); Total Bilirubin 0.5 mg/dL (0.2-1.3); Total Protein 5.2 g/dL (6.3-8.2)
[2017-12-08] MEDS: IPRATROPIUM-ALBUTEROL 3 ML NEB INHALATION SCH ×3 (08:01→15:45)
[2017-12-08] MEDS ORDERED: FUROSEMIDE 10 MG/ML 4 ML VIAL IV STA (08:36)
--- NOTE | 2017-12-08 08:45 | XR ---
EXAMINATION TYPE: XR chest 2V DATE OF EXAM: 12/08/2017 COMPARISON: 12/07/2017 TECHNIQUE: PA and lateral views submitted. HISTORY: Post cardiac surgery FINDINGS: Bilateral consolidation and pleural effusion noted. Postsurgical changes and cardiomegaly identified. No sizable pneumothorax. Subcutaneous emphysema on the right. Epicardial lead seen. Hypertrophic and degenerative change of the spine noted IMPRESSION: 1. Bilateral consolidation and pleural effusion.
--- NOTE | 2017-12-08 08:59 | P.PN ---
Subjective Progress Note Date: 12/08/17 Principal diagnosis: Severe calcific aortic valve stenosis. Mild aortic valve regurgitation. Mild to moderate mitral valve regurgitation. Preserved left ventricular function with preoperative EF 50-55%. Diabetes with preoperative hemoglobin A1c 7.0%. Hyperlipidemia. Hypertension. Previous tobacco dependence. Mild COPD with preoperative FEV1 70% of predicted. History of syncope. History of previous non-STEMI in October of this year, RCA stenosis 30-40%. Obesity. POD #4 aortic valve replacement using a 23 mm bovine bioprosthesis, Inspiris. Exclusion of the left atrial appendage using a 35 mm AtriClip. Intraoperative transesophageal echocardiogram and epi-aortic scanning. Postoperative acute blood loss anemia, an expected outcome of surgery given hemodilution and use of cardiopulmonary bypass pump. Postoperative thrombocytopenia, an expected outcome. The patient is currently sitting up in a chair in no acute distress. States pain is controlled with current medication regimen. Does complain of continued nausea and decreased appetite, no bowel movement yet. Denies shortness of breath. Patient is incredibly nervous about the possibility of going home, states he does not feel safe at this time. Objective - Vital Signs Vital signs: Vital Signs Temp 97.6 F 12/08/17 04:00 Pulse 72 12/08/17 08:10 Resp 17 12/08/17 04:00 BP 169/75 12/08/17 04:00 Pulse Ox 95 12/08/17 04:00 Intake & Output 12/07/17 12/08/17 12/08/17 18:59 06:59 18:59 Intake Total 894.476 240 Balance 894.476 240 Weight 101.3 kg Intake: Intake, IV Titration 54.476 Amount Insulin Regular 100 unit 54.476 In Sodium Chloride 0.9% 100 ml @ Titrate IV .Q0M [facility] Rx#:[id number] Oral 840 240 Other: Voiding Method Toilet Toilet # Voids 1 1 ABP, PAP, CO, CI - Last Documented Arterial Blood Pressure 126/50 Pulmonary Artery Pressure 34/15 Cardiac Output 6.7 Cardiac Index 3.2 - Constitutional General appearance: Present: cooperative, no acute distress, obese - Respiratory Details: Lungs sounds diminished bilaterally. Respirations even, nonlabored. Currently on room air with oxygen saturation 95%. Able to achieve 1250 mL on his incentive spirometry. Effective cough. - Cardiovascular Details: S1, S2 present. Regular rate and rhythm, sinus rhythm on telemetry. Sternum stable. A/V epicardial pacemaker wires present, grounded. Palpable peripheral pulses bilaterally. No edema present. No calf pain or tenderness noted. Heart hugger in place with patient demonstrating appropriate use. Antiembolism stockings, SCDs present. - Gastrointestinal Gastrointestinal Comment(s): Abdomen soft, nontender, nondistended. Active bowel sounds present 4 quadrants. Tolerating diet. Positive flatus, negative BM. - Genitourinary Genitourinary Comment(s): Patient continues to void clear, yellow urine. - Integumentary Integumentary Comment(s): Skin is warm and dry with evidence of good perfusion. Anterior chest incision well approximated and covered with dry intact dressing. - Neurologic Neurologic: Present: CNII-XII intact - Musculoskeletal Musculoskeletal: Present: gait normal, strength equal bilaterally - Psychiatric Psychiatric: Present: A&O x's 3, appropriate affect, intact judgment & insight - Allied health notes Allied health notes reviewed: nursing - Labs CBC & Chem 7: 12/08/17 06:43 12/08/17 06:43 Labs: Abnormal Lab Results - Last 24 Hours (Table) 12/07/17 12/07/17 12/07/17 Range/Units 08:45 10:37 12:29 RBC (4.30-5.90) m/uL Hgb (13.0-17.5) gm/dL Hct (39.0-53.0) % Plt Count (150-450) k/uL Lymphocytes # (1.0-4.8) k/uL Sodium (137-145) mmol/L Potassium (3.5-5.1) mmol/L BUN (9-20) mg/dL Glucose (74-99) mg/dL POC Glucose (mg/dL) 206 H 177 H 218 H (75-99) mg/dL Magnesium (1.6-2.3) mg/dL Total Protein (6.3-8.2) g/dL Albumin (3.5-5.0) g/dL 12/07/17 12/07/17 12/07/17 Range/Units 14:40 16:32 18:51 RBC (4.30-5.90) m/uL Hgb (13.0-17.5) gm/dL Hct (39.0-53.0) % Plt Count (150-450) k/uL Lymphocytes # (1.0-4.8) k/uL Sodium (137-145) mmol/L Potassium (3.5-5.1) mmol/L BUN (9-20) mg/dL Glucose (74-99) mg/dL POC Glucose (mg/dL) 255 H 171 H 146 H (75-99) mg/dL Magnesium (1.6-2.3) mg/dL Total Protein (6.3-8.2) g/dL Albumin (3.5-5.0) g/dL 12/07/17 12/08/17 12/08/17 Range/Units 21:39 05:50 06:43 RBC 2.83 L (4.30-5.90) m/uL Hgb 8.6 L (13.0-17.5) gm/dL Hct 26.5 L (39.0-53.0) % Plt Count 122 L (150-450) k/uL Lymphocytes # 0.9 L (1.0-4.8) k/uL Sodium (137-145) mmol/L Potassium (3.5-5.1) mmol/L BUN (9-20) mg/dL Glucose (74-99) mg/dL POC Glucose (mg/dL) 167 H 148 H (75-99) mg/dL Magnesium (1.6-2.3) mg/dL Total Protein (6.3-8.2) g/dL Albumin (3.5-5.0) g/dL 12/08/17 Range/Units 06:43 RBC (4.30-5.90) m/uL Hgb (13.0-17.5) gm/dL Hct (39.0-53.0) % Plt Count (150-450) k/uL Lymphocytes # (1.0-4.8) k/uL Sodium 136 L (137-145) mmol/L Potassium 5.2 H (3.5-5.1) mmol/L BUN 23 H (9-20) mg/dL Glucose 156 H (74-99) mg/dL POC Glucose (mg/dL) (75-99) mg/dL Magnesium 2.7 H (1.6-2.3) mg/dL Total Protein 5.2 L (6.3-8.2) g/dL Albumin 3.1 L (3.5-5.0) g/dL - Imaging and Cardiology Chest x-ray: report reviewed, image reviewed Assessment and Plan (1) COPD (chronic obstructive pulmonary disease) Current Visit: Yes Status: Chronic Code(s): J44.9 - CHRONIC OBSTRUCTIVE PULMONARY DISEASE, UNSPECIFIED SNOMED Code(s): 77720742 (2) Obesity (BMI 30-39.9) Current Visit: Yes Status: Chronic Code(s): E66.9 - OBESITY, UNSPECIFIED SNOMED Code(s): 793829809 (3) History of myocardial infarction Current Visit: No Status: Resolved Code(s): I25.2 - OLD MYOCARDIAL INFARCTION SNOMED Code(s): 458044173 (4) Diabetes mellitus Current Visit: Yes Status: Chronic Code(s): E11.9 - TYPE 2 DIABETES MELLITUS WITHOUT COMPLICATIONS SNOMED Code(s): 66776118 (5) Family history of heart disease Current Visit: Yes Status: Chronic Code(s): Z82.49 - FAMILY HX OF ISCHEM HEART DIS AND OTH DIS OF THE CIRC SYS SNOMED Code(s): 833314185 (6) Hyperlipidemia Current Visit: Yes Status: Chronic Code(s): E78.5 - HYPERLIPIDEMIA, UNSPECIFIED SNOMED Code(s): 28078640 (7) Hypertension Current Visit: Yes Status: Chronic Code(s): I10 - ESSENTIAL (PRIMARY) HYPERTENSION SNOMED Code(s): 45246349 (8) Severe aortic stenosis Current Visit: Yes Status: Chronic Code(s): I35.0 - NONRHEUMATIC AORTIC ( VALVE) STENOSIS SNOMED Code(s): 78162754 (9) Tobacco dependence in remission Current Visit: No Status: Resolved Code(s): F17.201 - NICOTINE DEPENDENCE, UNSPECIFIED, IN REMISSION SNOMED Code(s): 742091131 Plan: 1. Continue aspirin, statin, Plavix, heparin subcu, hydralazine, Norvasc, beta erasto. Will increase beta erasto therapy as tolerated. 2. Encourage incentive spirometry is 10 times every hour. 3. Increase activity, ambulate in hallway, PT/OT/cardiac rehab following. 4. Will give Lasix IV today. 5. Will discontinue epicardial pacemaker wires. Patient to be on bedrest 1 hour post-wire removal. 6. Continue Proscar, Cardura for prostate disorder. 7. Will monitor daily labs and x-rays. No need for transfusion at this point. 8. Insulin/diabetic management per primary care service. 9. Pain control was ordered medication regimen. 10. Bronchodilators per pulmonology. 11. More recommendations to follow dependent on patient's progress. 12. Dr. Morgan consulted for inpatient rehab. Patient fairly reluctant to go home at this point. 13. Discharge planning and progress. Likely will discharge in the next 24-48 hours dependent on recommendations from PT/OT and Dr. Morgan. Time with Patient: Greater than 30
[2017-12-08] MEDS ORDERED: amLODIPine 5 MG TAB PO SCH (09:00)
[2017-12-08] MEDS ORDERED: POLYETHYLENE GLYCOL 3350 17 GM POWD.PACK PO SCH (09:00)
[2017-12-08 09:25] VITALS: RESP 18
[2017-12-08] MEDS: hydrALAZINE HCL 25 MG TAB PO SCH ×2 (09:34→17:37)
[2017-12-08] MEDS: HEPARIN SODIUM,PORCINE 5,000 UNIT/ML 1 ML VIAL SQ SCH (09:34)
[2017-12-08] MEDS: CARVEDILOL 6.25 MG TAB PO SCH (09:35)
[2017-12-08] MEDS: DOXAZOSIN 4 MG TAB PO SCH (09:35)
[2017-12-08] MEDS: ASPIRIN 325 MG TAB PO SCH (09:35)
[2017-12-08] MEDS: CLOPIDOGREL 75 MG TAB PO SCH (09:35)
[2017-12-08] MEDS: ATORVASTATIN 40 MG TAB PO SCH (09:35)
[2017-12-08 11:46] VITALS: BP 122/58
[2017-12-08 11:54] LABS: Glucose,Whole Blood 239 mg/dL (75-99)
--- NOTE | 2017-12-08 12:29 | P.PN ---
Subjective Progress Note Date: 12/08/17 Principal diagnosis: Status post aortic valve replacement Progress note dated 12/08/2017 72-year-old male with history of severe aortic stenosis. He is postop day #4 status post aortic valve replacement. He did need postoperative ventilator management. The patient does have a history of nonocclusive coronary artery disease diabetes mellitus hypertension hyperlipidemia anemia BPH bronchial asthma. The patient seemed be doing relatively well. The some discussion that he may be discharged in next 24-48 hours to 8 inpatient rehab facility such as [facility]. The patient really has no particular complaints. He sitting in the room with his and sister. He's been weaned off oxygen therapy. He is doing well on his incentive spirometer. His vital signs are stable. Objective - Vital Signs Vital signs: Vital Signs Temp 97.6 F 12/08/17 04:00 Pulse 59 L 12/08/17 12:00 Resp 18 12/08/17 11:44 BP 122/58 12/08/17 11:44 Pulse Ox 100 12/08/17 11:44 Intake & Output 12/07/17 12/08/17 12/08/17 18:59 06:59 18:59 Intake Total 894.476 240 Balance 894.476 240 Weight 101.3 kg Intake: Intake, IV Titration 54.476 Amount Insulin Regular 100 unit 54.476 In Sodium Chloride 0.9% 100 ml @ Titrate IV .Q0M [facility] Rx#:[id number] Oral 840 240 Other: Voiding Method Toilet Toilet # Voids 1 1 ABP, PAP, CO, CI - Last Documented Arterial Blood Pressure 126/50 Pulmonary Artery Pressure 34/15 Cardiac Output 6.7 Cardiac Index 3.2 - Exam No acute distress, oriented 3. HEENT examination is grossly unremarkable. Mucous membranes are moist. No oral lesions. Neck supple. Full range of motion. No adenopathy thyromegaly or neck vein distention. Cardiovascular examination reveals regular rhythm rate. S1-S2 normal. No S3 or S4. No discernible murmur noted. Lungs reveal clear breath sounds. Breath sounds are equal bilaterally. No adventitious lung sounds including wheezes rhonchi or crackles. Abdomen soft bowel sounds are heard. No masses or tenderness. Extremities are intact. No cyanosis clubbing or edema. Skin is without rash or lesion. Neurologic examination is brief but nonfocal. - Labs CBC & Chem 7: 12/08/17 06:43 12/08/17 06:43 Labs: Abnormal Lab Results - Last 24 Hours (Table) 12/07/17 12/07/17 12/07/17 Range/Units 12:29 14:40 16:32 RBC (4.30-5.90) m/uL Hgb (13.0-17.5) gm/dL Hct (39.0-53.0) % Plt Count (150-450) k/uL Lymphocytes # (1.0-4.8) k/uL Sodium (137-145) mmol/L Potassium (3.5-5.1) mmol/L BUN (9-20) mg/dL Glucose (74-99) mg/dL POC Glucose (mg/dL) 218 H 255 H 171 H (75-99) mg/dL Magnesium (1.6-2.3) mg/dL Total Protein (6.3-8.2) g/dL Albumin (3.5-5.0) g/dL 12/07/17 12/07/17 12/08/17 Range/Units 18:51 21:39 05:50 RBC (4.30-5.90) m/uL Hgb (13.0-17.5) gm/dL Hct (39.0-53.0) % Plt Count (150-450) k/uL Lymphocytes # (1.0-4.8) k/uL Sodium (137-145) mmol/L Potassium (3.5-5.1) mmol/L BUN (9-20) mg/dL Glucose (74-99) mg/dL POC Glucose (mg/dL) 146 H 167 H 148 H (75-99) mg/dL Magnesium (1.6-2.3) mg/dL Total Protein (6.3-8.2) g/dL Albumin (3.5-5.0) g/dL 12/08/17 12/08/17 12/08/17 Range/Units 06:43 06:43 11:52 RBC 2.83 L (4.30-5.90) m/uL Hgb 8.6 L (13.0-17.5) gm/dL Hct 26.5 L (39.0-53.0) % Plt Count 122 L (150-450) k/uL Lymphocytes # 0.9 L (1.0-4.8) k/uL Sodium 136 L (137-145) mmol/L Potassium 5.2 H (3.5-5.1) mmol/L BUN 23 H (9-20) mg/dL Glucose 156 H (74-99) mg/dL POC Glucose (mg/dL) 239 H (75-99) mg/dL Magnesium 2.7 H (1.6-2.3) mg/dL Total Protein 5.2 L (6.3-8.2) g/dL Albumin 3.1 L (3.5-5.0) g/dL Assessment and Plan Assessment: Assessment Postop day #4, status post aortic valve replacement for severe aortic stenosis Postoperative ventilator management, resolved Nonocclusive coronary artery disease Diabetes mellitus Benign essential hypertension Hyperlipidemia Postoperative anemia BPH Chronic bronchial asthma Plan: Plan dated 12/08/2017 The patient seemed be doing relatively well. We'll encourage use of the incentive spirometer every hour while awake. Encourage deep breathing coughing clearing of secretions. Please continue the updrafts. We'll continue to follow closely. Possible discharge in the next day or 2. He may be going to inpatient rehab at [facility]. Time with Patient: Less than 30
--- NOTE | 2017-12-08 12:45 | P.PN ---
Subjective Progress Note Date: 12/08/17 His is a 72-year-old gentleman who has history of severe calcified aortic valve stenosis and mild aortic valve regurg with preserved left ventricular systolic function, he is status post aortic valve replacement. Examined this morning, he had some bouts of nausea yesterday but today he states is much improved. Hemodynamically the patient is stable. Hemoglobin today is 8.6, platelet count 122. Sodium 136, potassium 5.2, BUN 23, creatinine 1.1. Objective - Vital Signs Vital signs: Vital Signs Temp 97.6 F 12/08/17 04:00 Pulse 59 L 12/08/17 12:00 Resp 18 12/08/17 11:44 BP 122/58 12/08/17 11:44 Pulse Ox 100 12/08/17 11:44 Intake & Output 12/07/17 12/08/17 12/08/17 18:59 06:59 18:59 Intake Total 894.476 240 Balance 894.476 240 Weight 101.3 kg Intake: Intake, IV Titration 54.476 Amount Insulin Regular 100 unit 54.476 In Sodium Chloride 0.9% 100 ml @ Titrate IV .Q0M [facility] Rx#:[id number] Oral 840 240 Other: Voiding Method Toilet Toilet # Voids 1 1 3 ABP, PAP, CO, CI - Last Documented Arterial Blood Pressure 126/50 Pulmonary Artery Pressure 34/15 Cardiac Output 6.7 Cardiac Index 3.2 - Exam PHYSICAL EXAMINATION: GENERAL: 72-year-old gentleman in no acute distress at the time of my examination HEENT: Head is atraumatic, normocephalic. Pupils equal, round. Sclera anicteric. Conjunctiva are clear. Mucous membranes of the mouth are moist. Neck is supple. There is no elevated jugular venous pressure.] bruit is heard. HEART EXAMINATION: Heart S1, S2 normal. No murmur or gallop heard. CHEST EXAMINATION: Lungs reveal diminished air entry to bilateral bases. ABDOMEN: Soft, nontender. Bowel sounds are heard. No organomegaly noted. EXTREMITIES: 2+ peripheral pulses with no evidence of peripheral edema and no calf tenderness noted. NEUROLOGIC patient is awake, alert and oriented ?-3. . - Labs CBC & Chem 7: 12/08/17 06:43 12/08/17 06:43 Labs: Abnormal Lab Results - Last 24 Hours (Table) 12/07/17 12/07/17 12/07/17 Range/Units 12:29 14:40 16:32 RBC (4.30-5.90) m/uL Hgb (13.0-17.5) gm/dL Hct (39.0-53.0) % Plt Count (150-450) k/uL Lymphocytes # (1.0-4.8) k/uL Sodium (137-145) mmol/L Potassium (3.5-5.1) mmol/L BUN (9-20) mg/dL Glucose (74-99) mg/dL POC Glucose (mg/dL) 218 H 255 H 171 H (75-99) mg/dL Magnesium (1.6-2.3) mg/dL Total Protein (6.3-8.2) g/dL Albumin (3.5-5.0) g/dL 12/07/17 12/07/17 12/08/17 Range/Units 18:51 21:39 05:50 RBC (4.30-5.90) m/uL Hgb (13.0-17.5) gm/dL Hct (39.0-53.0) % Plt Count (150-450) k/uL Lymphocytes # (1.0-4.8) k/uL Sodium (137-145) mmol/L Potassium (3.5-5.1) mmol/L BUN (9-20) mg/dL Glucose (74-99) mg/dL POC Glucose (mg/dL) 146 H 167 H 148 H (75-99) mg/dL Magnesium (1.6-2.3) mg/dL Total Protein (6.3-8.2) g/dL Albumin (3.5-5.0) g/dL 12/08/17 12/08/17 12/08/17 Range/Units 06:43 06:43 11:52 RBC 2.83 L (4.30-5.90) m/uL Hgb 8.6 L (13.0-17.5) gm/dL Hct 26.5 L (39.0-53.0) % Plt Count 122 L (150-450) k/uL Lymphocytes # 0.9 L (1.0-4.8) k/uL Sodium 136 L (137-145) mmol/L Potassium 5.2 H (3.5-5.1) mmol/L BUN 23 H (9-20) mg/dL Glucose 156 H (74-99) mg/dL POC Glucose (mg/dL) 239 H (75-99) mg/dL Magnesium 2.7 H (1.6-2.3) mg/dL Total Protein 5.2 L (6.3-8.2) g/dL Albumin 3.1 L (3.5-5.0) g/dL Assessment and Plan Plan: Assessment and plan #1 status post aortic valve replacement #2 diabetes #3 hypertension #4 hyperlipidemia #5 prior history of smoking Plan From cardiology's perspective, we will recommend to continue patient on his current medications. He has been encouraged regarding the use of his incentive spirometry and been encouraged to be up ambulating in the hallway today. DNP note has been reviewed, I agree with a documented findings and plan of care. Patient was seen and examined.
[2017-12-08 13:55] LABS: Hemoglobin A1C 6.9 % (4.0-6.0)
--- NOTE | 2017-12-08 14:44 | P.CONS ---
History of Present Illness - Chief Complaint Cardiac debility - History of Present Illness I had the opportunity to see patient for inpatient rehab consultation with regard to cardiac debility. He was admitted December 04 for elective aVR for severe stenosis. Seen in ICU for ventilator by Dr. De Paz. Seen for medical by Dr. Rainey. Chest x-rays followed for bilateral consolidation and pleural effusions. PT reports supervision for mobility 100 feet. OT prescribed. Previous functional history as elicited from patient: 72-year-old left-handed white male who is lives and 2 floor home with , with basement. Retired. Describes independent with cooking, laundry, standing shower, driving. Note doesn't own a car. History smoking or opacity rare drink but hasn't smoke or drink and last 5-[address] Parish. Family history of heart disease in mother. Review of Systems Review of systems: ENT: Denies sneezes or discharge. Eyes: Denies discharge or photophobia. Cardiac: Denies chest pain or palpitation. Wraps mild sternal discomfort Pulmonary: Denies cough or shortness of breath. Gastrointestinal: Denies nausea, emesis, constipation, diarrhea. Genitourinary: Denies discharge or frequency. Musculoskeletal: Denies muscle or bone aches. Neurologic: Denies motor or sensory change. Endocrine: Denies shakes or sweats. Oncology: Denies cancers. Dermatologic: Denies rash, itching, pruritus. ALLERGY/immunology: Denies sneezes, rashes. Past Medical History Past Medical History: Asthma, Cancer, Diabetes Mellitus, Hyperlipidemia, Hypertension, Osteoarthritis (OA), Prostate Disorder Additional Past Medical History / Comment(s): AORTIC VALVE STENOSIS, HX SKIN CA. History of Any Multi-Drug Resistant Organisms: None Reported MDRO Source:: left leg 1961 Past Surgical History: Heart Catheterization Additional Past Surgical History / Comment(s): left leg infection removed, Benign right breast tumor 1961, Past Anesthesia/Blood Transfusion Reactions: No Reported Reaction Smoking Status: Former smoker - Past Family History Mother Family Medical History: Cancer, Congestive Heart Failure (CHF) Additional Family Medical History / Comment(s): renal, melanoma Father Family Medical History: Cancer Additional Family Medical History / Comment(s): melanoma Sister(s) Family Medical History: AFIB Brother(s) Family Medical History: No Reported History Daughter(s) Family Medical History: No Reported History Son(s) Family Medical History: No Reported History Medications and Allergies Home Medications Medication Instructions Recorded Confirmed Type Calcium Carbonate/Vitamin D3 1 tab PO HS 10/03/16 12/04/17 History [Calcium 600-Vit D3 800 Tab] Doxazosin Mesylate [Cardura] 8 mg PO BID 10/03/16 12/04/17 History Finasteride [Proscar] 5 mg PO HS 10/03/16 12/04/17 History Glimepiride [Amaryl] 4 mg PO BID 10/03/16 12/04/17 History Montelukast [Singulair] 10 mg PO DAILY 10/03/16 12/04/17 History Vitamin E 400 unit PO HS 10/03/16 12/04/17 History amLODIPine [Norvasc] 5 mg PO BID 10/03/16 12/04/17 History metFORMIN HCL [Metformin HCl] 1,000 mg PO BID 10/03/16 12/04/17 History Carvedilol [Coreg] 6.25 mg PO BID 11/17/17 12/04/17 History Mometasone/Formoterol [Dulera 100 2 puff INHALATION RT-BID PRN 11/17/17 History Mcg/5 Mcg Inhaler] Atorvastatin [Lipitor] 40 mg PO HS #30 tab 11/20/17 12/04/17 Rx Pioglitazone [Actos] 15 mg PO QAM 11/21/17 12/04/17 History Aspirin 325 mg PO DAILY #30 tab 12/08/17 Rx Clopidogrel [Plavix] 75 mg PO DAILY #30 tab 12/08/17 Rx Furosemide [Lasix] 20 mg PO DAILY #0 12/08/17 12/04/17 Rx HYDROcodone/APAP 5-325MG [Duncan 1 each PO Q6HR PRN #30 tab 12/08/17 Rx 5-325] Losartan [Cozaar] 50 mg PO DAILY #30 tab 12/08/17 Rx Pantoprazole [Protonix] 40 mg PO AC-BRKFST #30 tablet. 12/08/17 Rx Sennosides-Docusate Sodium 2 each PO HS #30 tab 12/08/17 Rx [Senokot-S] hydrALAZINE HCL [Apresoline] 25 mg PO TID #60 tab 12/08/17 12/04/17 Rx Allergies Allergy/AdvReac Type Severity Reaction Status Date / Time No Known Allergies Allergy Verified 12/04/17 06:00 Physical Exam Vitals: Vital Signs Temp Pulse Pulse Resp BP BP Pulse Ox 12/08/17 12:00 59 L 12/08/17 11:49 76 12/08/17 11:44 59 L 18 122/58 100 12/08/17 11:35 72 12/08/17 08:10 72 12/08/17 08:01 72 12/08/17 08:00 63 18 176/78 95 12/08/17 04:00 97.6 F 69 17 169/75 95 12/08/17 00:00 98.4 F 69 17 125/73 95 12/07/17 20:39 70 12/07/17 20:28 70 97 12/07/17 20:00 97.6 F 69 17 146/71 97 12/07/17 16:10 72 12/07/17 16:00 72 72 18 Intake and Output 12/07/17 12/08/17 12/08/17 22:59 06:59 14:59 Intake Total 377.992 462 Balance 377.992 462 Intake: Intake, IV Titration 17.992 Amount Insulin Regular 100 unit 17.992 In Sodium Chloride 0.9% 100 ml @ Titrate IV .Q0M [facility] Rx#:[id number] Oral 360 462 Other: Voiding Method Toilet Toilet # Voids 2 1 3 Weight 101.3 kg Skin: Good color, texture, turgor. General: Medium build and comfortable appearance. Head: Normocephalic, atraumatic. Eyes: Symmetric. Pupils equal round. Ears: Symmetric. Hearing within normal limits. Mouth: Clear. Neck: Supple. Carotid without bruit. Cardiac: Regular rate and rhythm. Chest clean and dressed. Wearing harness. Lungs: Clear anteriorly and posteriorly. Abdomen: Soft active nontender. Extremities: Normal tone. Neurological: Mental status: Alert, cooperative, pleasant. Cranial nerves: Symmetric facial tone and trapezius. Motor: Normal strength and isolation all 4 limbs. Sensation: Intact throughout. DTRs: Symmetric and equal throughout. Mobility: Did not attempt to sit or stand at this time. Results CBC & Chem 7: 08/13/18 06:43 12/08/17 06:43 Labs: Abnormal Lab Results - Last 24 Hours (Table) 12/07/17 12/07/17 12/07/17 Range/Units 14:40 16:32 18:51 RBC (4.30-5.90) m/uL Hgb (13.0-17.5) gm/dL Hct (39.0-53.0) % Plt Count (150-450) k/uL Lymphocytes # (1.0-4.8) k/uL Sodium (137-145) mmol/L Potassium (3.5-5.1) mmol/L BUN (9-20) mg/dL Glucose (74-99) mg/dL POC Glucose (mg/dL) 255 H 171 H 146 H (75-99) mg/dL Magnesium (1.6-2.3) mg/dL Total Protein (6.3-8.2) g/dL Albumin (3.5-5.0) g/dL 12/07/17 12/08/17 12/08/17 Range/Units 21:39 05:50 06:43 RBC 2.83 L (4.30-5.90) m/uL Hgb 8.6 L (13.0-17.5) gm/dL Hct 26.5 L (39.0-53.0) % Plt Count 122 L (150-450) k/uL Lymphocytes # 0.9 L (1.0-4.8) k/uL Sodium (137-145) mmol/L Potassium (3.5-5.1) mmol/L BUN (9-20) mg/dL Glucose (74-99) mg/dL POC Glucose (mg/dL) 167 H 148 H (75-99) mg/dL Magnesium (1.6-2.3) mg/dL Total Protein (6.3-8.2) g/dL Albumin (3.5-5.0) g/dL 12/08/17 12/08/17 Range/Units 06:43 11:52 RBC (4.30-5.90) m/uL Hgb (13.0-17.5) gm/dL Hct (39.0-53.0) % Plt Count (150-450) k/uL Lymphocytes # (1.0-4.8) k/uL Sodium 136 L (137-145) mmol/L Potassium 5.2 H (3.5-5.1) mmol/L BUN 23 H (9-20) mg/dL Glucose 156 H (74-99) mg/dL POC Glucose (mg/dL) 239 H (75-99) mg/dL Magnesium 2.7 H (1.6-2.3) mg/dL Total Protein 5.2 L (6.3-8.2) g/dL Albumin 3.1 L (3.5-5.0) g/dL Assessment and Plan (1) Severe aortic stenosis Current Visit: Yes Status: Chronic Code(s): I35.0 - NONRHEUMATIC AORTIC ( VALVE) STENOSIS SNOMED Code(s): 10199797 Plan: Impression: 1. Cardiac debility. 2. Aortic stenosis status post AVR. 3. Diabetes. 4. Obesity. 5. Hypertension. 6. His been. 7. Asthma. 8. Osteoarthritis. 9. History of cancer. Comments and plan: At this time PT ongoing and cardiac surgery staff already aware patient graded at supervision level for gait 100 feet. Thus may be too good for inpatient rehab currently. We'll await OT notes though. At this time , should be consider discharge home with support services.
[2017-12-08 15:49] VITALS: PULSE 80
--- NOTE | 2017-12-08 15:49 | P.DS ---
Providers Date of admission: 12/04/17 05:39 Expected date of discharge: 12/08/17 Attending physician: Yamileth Lopez Consults: 12/04/17 13:13 Consult Physician Routine Consulting Provider: Kathy De Paz Consult Reason/Comments: Jewel Gauger Consult: post cardiac surgery Do you want consulting provider notified?: Yes Consult Physician Routine Consulting Provider: Jose Raul Parish Consult Reason/Comments: medical management Do you want consulting provider notified?: Yes Consult Physician Routine Consulting Provider: Cheri Cárdenas Consult Reason/Comments: Relief Operator Consult: post cardiac surgery Do you want consulting provider notified?: Yes 12/08/17 08:00 Consult Physician Routine Consulting Provider: Anthony Morgan Consult Reason/Comments: inpatient rehab Do you want consulting provider notified?: Yes Primary care physician: Jose Raul Parish - Discharge Diagnosis(es) (1) COPD (chronic obstructive pulmonary disease) Current Visit: Yes Status: Chronic (2) Obesity (BMI 30-39.9) Current Visit: Yes Status: Chronic (3) History of myocardial infarction Current Visit: No Status: Resolved (4) Diabetes mellitus Current Visit: Yes Status: Chronic (5) Family history of heart disease Current Visit: Yes Status: Chronic (6) Hyperlipidemia Current Visit: Yes Status: Chronic (7) Hypertension Current Visit: Yes Status: Chronic (8) Severe aortic stenosis Current Visit: Yes Status: Chronic (9) Tobacco dependence in remission Current Visit: No Status: Resolved Hospital Course: FINAL DIAGNOSIS: 1. Severe calcific aortic valve stenosis 2. Mild aortic valve regurgitation 3. Mild to moderate mitral valve regurgitation 4. Preserved left ventricular function with preoperative EF 50-55% 5. Diabetes with preoperative hemoglobin A1c 7.0% 6. Hyperlipidemia 7. Hypertension 8. Previous tobacco dependence 9. Mild COPD with preoperative FEV1 70% of predicted 10. History of syncope 11. History of previous non-STEMI in October 2017, RCA stenosis of 30-40% 12. Obesity 13. Postoperative acute blood loss anemia, an expected outcome of surgery given hemodilution use of cardiopulmonary bypass pump 14. Postoperative thrombocytopenia, an expected outcome PRINCIPAL PROCEDURE: 1. Aortic valve replacement using a 23 mm bovine bioprosthesis, Inspiris 2. Exclusion of the left atrial appendage using a 35 mm AtriClip 3. Intraoperative transesophageal echocardiogram and epi-aortic scanning HISTORY OF PRESENT ILLNESS: This is a 72-year-old gentleman who follows with Dr. Parish on an outpatient basis. He has had aortic stenosis for some time but has recently become symptomatic with chest pressure, shortness of breath, and 2 episodes of syncope. He was prescribed diuretics by his primary care physician and was recommended to see Dr. Cárdenas from cardiology. His symptoms had worsened and he presented to the emergency room at [facility] with complaints of chest tightness and shortness of breath. He was ruled in for a non-STEMI and underwent heart catheterization which demonstrated 30-40% disease in the right coronary artery and no other significant coronary artery disease. Transesophageal echocardiogram completed at that time demonstrated a tricuspid aortic valve with severe calcification, area 0.7-0.8 cm by planimetry demonstrating severe aortic stenosis, mild aortic insufficiency, mild to moderate mitral regurgitation, and mild right tricuspid regurgitation. The patient was referred to Dr. Lopez from cardiothoracic surgery. He was recommended to undergo aortic valve replacement as well as exclusion of the left atrial appendage. All risks and benefits were explained in detail to the patient and his family, all questions were answered, and consent was obtained to proceed with surgery. The patient was discharged to home to obtain dental clearance, to be brought in as an outpatient. HOSPITAL COURSE: The patient was brought to the hospital on 12/04/2017, taken to the preoperative area, prepared in the usual fashion, and subsequently taken to the operating room where Dr. Lopez performed an aortic valve replacement using a 25 mm bovine Inspiris bioprosthesis, exclusion of the left atrial appendage using a 35 mm AtriClip, intraoperative transesophageal echocardiogram, and epi- aortic scanning. Upon completion of surgery the patient was transferred to the cardiovascular intensive care unit where he was recovered, monitored hemodynamically, and where he progressed to cardiac rehabilitation phase 1. He was extubated, all lines, tubes, and drips were discontinued when appropriate, and he was transferred to [address] [place] [address] for further monitoring and rehabilitation. He did develop postoperative acute blood loss anemia and thrombocytopenia, both expected outcomes of surgery requiring monitoring without intervention. His oxygen was titrated down, he continued to work with physical and occupational therapy, he was tolerating oral diet, his pain was controlled, and he was ready to be discharged to home with home care on postoperative day #4. He received written and verbal instruction regarding his medications, activity restrictions, signs and symptoms requiring physician notification, and follow-up appointments. COMPLICATIONS: The patient experienced postoperative acute blood loss anemia and thrombocytopenia with no treatment required.. Plan - Discharge Summary Discharge Rx Participant: No New Discharge Prescriptions: New Aspirin 325 mg PO DAILY #30 tab Clopidogrel [Plavix] 75 mg PO DAILY #30 tab HYDROcodone/APAP 5-325MG [Union 5-325] 1 each PO Q6HR PRN #30 tab PRN Reason: Moderate Pain Losartan [Cozaar] 50 mg PO DAILY #30 tab Pantoprazole [Protonix] 40 mg PO AC-BRKFST #30 tablet.dr Rodriguez-Docusate Sodium [Senokot-S] 2 each PO HS #30 tab Continue Glimepiride [Amaryl] 4 mg PO BID Vitamin E 400 unit PO HS metFORMIN HCL [Metformin HCl] 1,000 mg PO BID amLODIPine [Norvasc] 5 mg PO BID Finasteride [Proscar] 5 mg PO HS Montelukast [Singulair] 10 mg PO DAILY Doxazosin Mesylate [Cardura] 8 mg PO BID Calcium Carbonate/Vitamin D3 [Calcium 600-Vit D3 800 Tab] 1 tab PO HS Carvedilol [Coreg] 6.25 mg PO BID Mometasone/Formoterol [Dulera 100 Mcg/5 Mcg Inhaler] 2 puff INHALATION RT- BID PRN PRN Reason: Shortness Of Breath Atorvastatin [Lipitor] 40 mg PO HS #30 tab Pioglitazone [Actos] 15 mg PO QAM Changed Furosemide [Lasix] 20 mg PO DAILY #0 hydrALAZINE HCL [Apresoline] 25 mg PO TID #60 tab Discontinued Valsartan/Hydrochlorothiazide [Valsartan-Hctz 320-12.5 mg Tab] 1 tab PO DAILY Aspirin [Adult Low Dose Aspirin EC] 81 mg PO HS Discharge Medication List Calcium Carbonate/Vitamin D3 [Calcium 600-Vit D3 800 Tab] 1 tab PO HS 10/03/16 [ History] Doxazosin Mesylate [Cardura] 8 mg PO BID 10/03/16 [History] Finasteride [Proscar] 5 mg PO HS 10/03/16 [History] Glimepiride [Amaryl] 4 mg PO BID 10/03/16 [History] Montelukast [Singulair] 10 mg PO DAILY 10/03/16 [History] Vitamin E 400 unit PO HS 10/03/16 [History] amLODIPine [Norvasc] 5 mg PO BID 10/03/16 [History] metFORMIN HCL [Metformin HCl] 1,000 mg PO BID 10/03/16 [History] Carvedilol [Coreg] 6.25 mg PO BID 11/17/17 [History] Mometasone/Formoterol [Dulera 100 Mcg/5 Mcg Inhaler] 2 puff INHALATION RT-BID PRN 11/17/17 [History] Atorvastatin [Lipitor] 40 mg PO HS #30 tab 11/20/17 [Rx] Pioglitazone [Actos] 15 mg PO QAM 11/21/17 [History] Aspirin 325 mg PO DAILY #30 tab 12/08/17 [Rx] Clopidogrel [Plavix] 75 mg PO DAILY #30 tab 12/08/17 [Rx] Furosemide [Lasix] 20 mg PO DAILY #0 12/08/17 [Rx] HYDROcodone/APAP 5-325MG [Union 5-325] 1 each PO Q6HR PRN #30 tab 12/08/17 [Rx] Losartan [Cozaar] 50 mg PO DAILY #30 tab 12/08/17 [Rx] Pantoprazole [Protonix] 40 mg PO AC-BRKFST #30 tablet.dr 12/08/17 [Rx] Sennosides-Docusate Sodium [Senokot-S] 2 each PO HS #30 tab 12/08/17 [Rx] hydrALAZINE HCL [Apresoline] 25 mg PO TID #60 tab 12/08/17 [Rx] Follow up Appointment(s)/Referral(s): Shagufta Rausch NPC [Nurse Practitioner] - 12/12/17 11:00 am Cheri Cárdenas MD [STAFF PHYSICIAN] - 12/15/17 1:30 pm Jose Raul Parish MD [Primary Care Provider] - 12/23/17 10:30 am (Will be seen by Nurse Practitioner Chanel Alves) Yamileth Lopez MD [STAFF PHYSICIAN] - 01/09/18 10:30 am Percy Ferreira DO [Doctor of Osteopathic Medicine] - 12/19/17 10:15 am [facility], [NON-STAFF] - As Needed Ambulatory/Diagnostic Orders: Complete Blood Count w/diff [LAB.AMB] Time Frame: 3 Days, Location: None Selected Comprehensive Metabolic Panel [LAB.AMB] Time Frame: 3 Days, Location: None Selected Activity/Diet/Wound Care/Special Instructions: DISCHARGE INSTRUCTIONS: 1. No driving for 4 weeks, or until physician gives their ok. 2. The patient should sleep in their own bed, no medical bed needed. 3. Stairs are not an issue. If the bedroom is upstairs, it is advised that the patient go up at night and down in the morning for the first week. Go slowly, using handrail and take 1 step at a time. 4. KAMRAN hose are to be worn for 30 days or until physician discontinues. 5. Heart hugger is to be worn 100% of the time until physician discontinues.( except when showering) 6. No lifting, pushing, or pulling more than 10 pounds for 12 weeks. The physician will advise of any restriction changes. 7. The patient is expected to continue the prescribed walking program. 8. Continue pain control per as needed orders. 9. Continue with incentive spirometry and splinting/heart hugger until otherwise directed by the physician. 10. Must shower daily using liquid antibacterial soap and a separate white washcloth for each individual incision. 11. Routine sternal incision care. No powders, lotions, ointments on incisions. 12. Please call surgeon/AIR QUALITY ENGINEER for temp greater than 101 F or purulent drainage from incisions. 13. Narcotic medications were discussed with the patient, including the potential for misuse, addiction, and abuse. Opiod Start Talking form was reviewed with the patient. 14. All prescriptions given by surgeon for 30 days. Refills need to be filled through animal care giver/primary care physician. 15. A Red armband has been placed on the patient. It should be worn for 30 days post surgery and will be removed by the cardiac surgeons. If an ER visit is necessary, please make sure the number on the Red armband is called. HOME HEALTH SERVICES TO PROVIDE: RN SKILLED HOME CARE SERVICES FOR POST-OP SURGICAL PATIENTS WITH THE FOLLOWING: Coronary Artery Bypass Surgery (CABG), Mitral Valve Replacement/ Repair ( MVR), Aortic Valve Replacement/Repair (AVR) RN TO CONTINUE EDUCATION FROM ``ROAD TO A HEALTH HEART PATIENT EDUCATION MANUAL (GIVEN TO PATIENT IN THE HOSPITAL) MEDICATION RECONCILIATION WITH EDUCATION NEEDED ON FIRST HOME VISIT EMPHASIZE IMPORTANCE OF WEARING BREAST SUPPORT/HEART HUGGER ENCOURAGE USE OF INCENTIVE SPIROMETER 10 X EVERY HOUR WHILE AWAKE ENCOURAGE UTILIZATION OF LOWER EXTREMITY COMPRESSION STOCKINGS/KAMRAN HOSE and ELEVATE LEGS ABOVE LEVEL OF HEART WHILE AT REST. ENCOURAGE AMBULATION 3-5x/day INCREASING TOLERATES, WHILE AVOID EXTREMES IN TEMPERATURE FREQUENCY: RN TO OPEN THE PATIENT WITHIN 24 HOURS OF DISCHARGE FROM THE HOSPITAL WITH [place] [facility] [place]ISIT 2-3 X A WEEK FOR 4 WEEKS ESTABLISHED BY PATIENT NEEDS. REMOVAL OF SUTURES: NURSING SERVICES TO REMOVE SUTURES TWO WEEKS POST SURGICAL DATE 12/18/17. If any questions regarding suture removal please call the office at [phone]. LABORATORY: CBC, CMP TO BE DRAWN ON THE THIRD DAY HOME, (RAN STAT) FAX RESULTS TO [phone]. TELEHEALTH PARAMETERS: WEIGHT: NOTIFY MD OF WEIGHT GAIN OF 2 LBS IN 24 HOURS OR 5 LBS IN ONE WEEK HR: NOTIFY MD OF HR <55 BPM OR HR>100 BPM BP: NOTIFY MD IF BP <90/55 OR BP>140/100 O2 SAT: NOTIFY MD IF PO2<93% ON ROOM AIR SEND TELEHEALTH REPORT TO CLINICAL SOCIAL WORK THERAPIST AND CARDIOVASCULAR SURGEON THE FIRST WEEK OF CARE AND THEN BI-WEEKLY. PLEASE ADDITIONALLY COMMUNICATE ANY ABNORMALS AND NEW FINDINGS TO THE SURGEONS OFFICE. Discharge Disposition: HOME WITH HOME HEALTH SERVICES
[2017-12-08 16:42] LABS: Glucose,Whole Blood 230 mg/dL (75-99)
--- NOTE | 2017-12-09 15:06 | P.PN ---
Subjective Progress Note Date: 12/08/17 This is a 72-year-old male one of my patient with a previous medical history significant for hypertension and hypertensive cardiovascular disease, hyperlipidemia, diabetes mellitus type 2, was recently diagnosed with symptomatic aortic stenosis and a formal exertional dyspnea and episode of syncope., and underwent left heart catheterization for further evaluation of his coronary anatomy as well as the gradient across the aortic valve, patient had an echocardiogram that showed ejection fraction of 50-55% with moderate aortic stenosis and severe aortic sclerosis with mild aortic regurgitation. Catheterization that showed calcified coronary arteries, moderate disease in the right coronary artery, normal appearance of the ascending aorta with 2+ aortic regurgitation. REESE revealed dilated left atrium with normal left atrial appendage, normal left ventricle size and systolic function, severe aortic stenosis with mild tri-cuspid valve and mild aortic regurgitation, moderate mitral regurgitation, mild tricuspid regurgitation with no pulmonary hypertension. No shunting across the interatrial septum. Patient underwent aortic valve replacement on 12/06 and was successfully extubated this morning. Is currently on Keflex drip, insulin drip with white and suggesting a temp of 99 , pulse rate 68, respiratory rate 20 with blood pressure 141/45 saturating well on 2 L of oxygen. Hargrove catheter has been removed this morning, no urine output since the catheter removal. Patient has mediastinal and left chest tube for the left pleural effusion. Patient examined bedside complains of some chest pain, dizziness and burning sensation in his feet. He denies any sweats, shortness of breath, palpitation, abdominal pain, change in bowel habits or dark stools. Patient is mentating well and answering appropriately INR 1.4, glucose 154, creatinine 0.89, albumin 2.1 chest x-ray obtained this morning suggest improvement in interstitial with better aeration. 8/11: Patient currently sitting up in chair denying chest pain, shortness breath , nausea, vomiting, dumping, dizziness, lightheadedness or blurry vision. Patient is showing concerned regarding his current medication regimen and that he takes it differently at home all his concerns and questions addressed at the bedside in the presence of the nursing staff. 8:12: Patient currently sitting up in chair denying chest pain, shortness breath, nausea, vomiting, dumping, dizziness, lightheadedness or blurry vision. Patient felt nauseous this morning and Zofran was administered with decent results patient is concerned about himself having no bowel movements in the last few days and would like some stool softener. 12/08: Patient was resumed on metformin over the weekend. He has been diuresed and states he's been up all night urinating. He does complain of constipation and concern that he may not be emptying his bladder. Medications have been added for constipation. Blood sugars are running between 146 and 167. Hemoglobin 8.6, platelet count 122, BUN 136 and potassium 5.2, creatinine is 1.1. For discharge, patient will continue metformin and resume Actos and glimepiride. Objective - Vital Signs Vital signs: Vital Signs Temp 98.1 F 12/07/17 12:00 Pulse 72 12/07/17 12:00 Resp 18 12/07/17 12:00 BP 128/64 12/07/17 12:00 Pulse Ox 96 12/07/17 12:00 Intake & Output 12/06/17 12/07/17 12/07/17 18:59 06:59 18:59 Intake Total 546.391 225.066 396.484 Output Total 650 Balance -103.609 225.066 396.484 Weight 101 kg 100.7 kg Intake: IV 236 160 0.9 Pressure Bag 36 Lactated Ringers 1,000 ml 200 160 @ 20 mls/hr IV .Q24H [facility] Rx#:[id number] Intake, IV Titration 70.391 65.066 36.484 Amount Insulin Regular 100 unit 70.391 In Sodium Chloride 0.9% 100 ml @ Per Protocol IV .Q0M [facility] Rx#:[id number] Insulin Regular 100 unit 65.066 36.484 In Sodium Chloride 0.9% 100 ml @ Titrate IV .Q0M [facility] Rx#:[id number] Oral 240 360 Output: Chest Tube Drainage 0 Mediastinal 0 Right Lateral Chest 0 Urine 650 Other: Voiding Method Urinal Toilet Toilet # Voids 0 4 ABP, PAP, CO, CI - Last Documented Arterial Blood Pressure 126/50 Pulmonary Artery Pressure 34/15 Cardiac Output 6.7 Cardiac Index 3.2 - Exam Constitutional General appearance: cooperative, no acute distress sitting comfortably in chair with Heart Hugger, obese - EENT Eyes: anicteric sclerae, PERRLA, normal appearance ENT: hearing grossly normal - Neck Neck: no lymphadenopathy, normal ROM, no other, no rigidity, no stridor, no thyromegaly - Respiratory Respiratory: bilateral: diminished, no dullness, no rales, no rhonchi mediastinal chest tube and right pleural chest tube - Cardiovascular Rhythm: regular Heart sounds: normal: S1, S2 Abnormal Heart Sounds: no systolic murmur, no diastolic murmur, no rub, stand or bear clean and intact - Gastrointestinal General gastrointestinal: normal bowel sounds, soft - Integumentary Integumentary: no rash - Neurologic Neurologic: CNII-XII intact - Musculoskeletal Musculoskeletal: strength equal bilaterally - Psychiatric Psychiatric: A&O x's 3, appropriate affect - Labs CBC & Chem 7: 12/08/17 06:43 12/08/17 06:43 Labs: Abnormal Lab Results - Last 24 Hours (Table) 12/06/17 12/06/17 12/06/17 Range/Units 15:38 17:43 19:26 RBC (4.30-5.90) m/uL Hgb (13.0-17.5) gm/dL Hct (39.0-53.0) % Plt Count (150-450) k/uL Lymphocytes # (1.0-4.8) k/uL Sodium (137-145) mmol/L BUN (9-20) mg/dL Glucose (74-99) mg/dL POC Glucose (mg/dL) 167 H 163 H 213 H (75-99) mg/dL Total Protein (6.3-8.2) g/dL Albumin (3.5-5.0) g/dL 12/06/17 12/06/17 12/07/17 Range/Units 21:22 23:33 01:24 RBC (4.30-5.90) m/uL Hgb (13.0-17.5) gm/dL Hct (39.0-53.0) % Plt Count (150-450) k/uL Lymphocytes # (1.0-4.8) k/uL Sodium (137-145) mmol/L BUN (9-20) mg/dL Glucose (74-99) mg/dL POC Glucose (mg/dL) 333 H 203 H 140 H (75-99) mg/dL Total Protein (6.3-8.2) g/dL Albumin (3.5-5.0) g/dL 12/07/17 12/07/17 12/07/17 Range/Units 03:53 04:56 05:37 RBC (4.30-5.90) m/uL Hgb (13.0-17.5) gm/dL Hct (39.0-53.0) % Plt Count (150-450) k/uL Lymphocytes # (1.0-4.8) k/uL Sodium 132 L (137-145) mmol/L BUN 25 H (9-20) mg/dL Glucose 133 H (74-99) mg/dL POC Glucose (mg/dL) 109 H 122 H (75-99) mg/dL Total Protein 5.1 L (6.3-8.2) g/dL Albumin 3.0 L (3.5-5.0) g/dL 12/07/17 12/07/17 12/07/17 Range/Units 05:37 06:33 08:45 RBC 2.92 L (4.30-5.90) m/uL Hgb 8.9 L (13.0-17.5) gm/dL Hct 26.8 L (39.0-53.0) % Plt Count 114 L (150-450) k/uL Lymphocytes # 0.8 L (1.0-4.8) k/uL Sodium (137-145) mmol/L BUN (9-20) mg/dL Glucose (74-99) mg/dL POC Glucose (mg/dL) 196 H 206 H (75-99) mg/dL Total Protein (6.3-8.2) g/dL Albumin (3.5-5.0) g/dL 12/07/17 12/07/17 Range/Units 10:37 12:29 RBC (4.30-5.90) m/uL Hgb (13.0-17.5) gm/dL Hct (39.0-53.0) % Plt Count (150-450) k/uL Lymphocytes # (1.0-4.8) k/uL Sodium (137-145) mmol/L BUN (9-20) mg/dL Glucose (74-99) mg/dL POC Glucose (mg/dL) 177 H 218 H (75-99) mg/dL Total Protein (6.3-8.2) g/dL Albumin (3.5-5.0) g/dL Assessment and Plan Plan: 1. Severe aortic stenosis status post aortic valve replacement Postoperative day 1 patient currently on Claviprex drip for blood pressure control. Continue aspirin 325 mg orally once every day, continue Coreg 6.25 mg orally twice every day, Lipitor, Plavix. Incentive spirometry for pulmonary prophylaxis. Pain control per primary team. GI prophylaxis with Protonix. 2. Diabetes mellitus type 2. continue with consistent carbohydrate diet. HbA1c ordered. Continue metformin, glimepiride and Actos. 3. Hypertension and hypertensive cardiovascular disease. Continue Coreg 6.25 mg orally twice every day, Norvasc, losartan. 4. Chronic diastolic heart failure. Until he Lasix 20 mg daily, Coreg 6.25 mg orally twice every day 5. Hyperlipidemia. Continue with Lipitor. 6. Enlarged prostate continue patient on Doxazosin 8 mg orally twice every day and finasteride 5 mg orally once every day. 7. ALLERGIC rhinitis/asthma. Continue Singulair 10 mg at bedtime as well as Ventolin inhaler. 8. Osteoarthritis. Clinically stable. 9. DVT prophylaxis. Continue heparin every 8 10. GI prophylaxis. Continue patient on PPI. Discharge plan: Home with [facility] Impression and plan of care have been directed as dictated by the signing physician. Marai G Paez nurse practitioner acting as scribe for signing physician.
== END 2017-12-08 18:33 | disposition home health service (06) | DRG 220 ==
LOC: 2ORMAIN 05:39 → 6ICU 13:38 → 6SEL 12-06 16:12
PROVIDERS: ADMIT Surgery; ATTEND Surgery
PROC: 5A1221Z Performance of Cardiac Output, Continuous (ICD-10-PCS; 2017-12-04)
PROC: 30233N0 Transfusion of Autologous Red Blood Cells into Peripheral Vein, Percutaneous Approach (ICD-10-PCS; 2017-12-04)
PROC: B24BZZ4 Ultrasonography of Heart with Aorta, Transesophageal (ICD-10-PCS; 2017-12-04)
PROC: 02RF08Z Replacement of Aortic Valve with Zooplastic Tissue, Open Approach (ICD-10-PCS; principal; 2017-12-04 08:00)
PROC: 02L70CK Occlusion of Left Atrial Appendage with Extraluminal Device, Open Approach (ICD-10-PCS; 2017-12-04 08:00)
DX: I08.3 Combined rheumatic disorders of mitral, aortic and tricuspid valves (principal); D62 Acute posthemorrhagic anemia; J90 Pleural effusion, not elsewhere classified; D69.59 Other secondary thrombocytopenia; E11.65 Type 2 diabetes mellitus with hyperglycemia; E66.9 Obesity, unspecified; E78.5 Hyperlipidemia, unspecified; F17.201 Nicotine dependence, unspecified, in remission; I11.9 Hypertensive heart disease without heart failure; I25.10 Atherosclerotic heart disease of native coronary artery without angina pectoris; I25.2 Old myocardial infarction; J44.9 Chronic obstructive pulmonary disease, unspecified; M19.90 Unspecified osteoarthritis, unspecified site; N40.0 Benign prostatic hyperplasia without lower urinary tract symptoms; I95.9 Hypotension, unspecified; J45.998 Other asthma; Z79.51 Long term (current) use of inhaled steroids; Z79.82 Long term (current) use of aspirin; Z79.84 Long term (current) use of oral hypoglycemic drugs; Z79.899 Other long term (current) drug therapy; Z95.1 Presence of aortocoronary bypass graft; Z85.828 Personal history of other malignant neoplasm of skin; Z68.32 Body mass index [BMI] 32.0-32.9, adult; Z80.8 Family history of malignant neoplasm of other organs or systems; Z82.49 Family history of ischemic heart disease and other diseases of the circulatory system
CPT/HCPCS: 71045; 71046; 80053; 82330; 82805; 83036; 83735; 85025; 85520; 85610; 85730; 86850; 86891; 86900; 86901; 86920; 88305; 88311; 94002; 94640; 94760

== ENCOUNTER → 2017-12-19 | Outpatient (CLI) | payer MEDICARE, BC ==
--- NOTE | 2017-12-19 12:12 | XR ---
EXAMINATION TYPE: XR chest 2V DATE OF EXAM: 12/19/2017 COMPARISON: Prior chest 12/08/2017 HISTORY: Shortness of breath TECHNIQUE: Frontal and lateral views of the chest are obtained. FINDINGS: Patient is post median sternotomy, cardiac valve placement, left atrial appendage clipping . No evident pneumothorax. There is blunting the costophrenic angles. Heart size is stable and enlarg ed. Pulmonary vascularity and alfonso not significant. Epicardial lead has been removed. IMPRESSION: Small pleural effusions and probable basilar atelectasis. Findings are similar to prior exam.
== END | disposition home or self-care (01) ==
LOC: RADXRMAIN 11:03
PROVIDERS: ATTEND Internal Medicine Critical Care Medicine
DX: J90 Pleural effusion, not elsewhere classified (principal)
CPT/HCPCS: 71046

== ENCOUNTER → 2018-12-24 | Outpatient (CLI) | payer MEDICARE, BC | END | disposition home or self-care (01) | LOC: CPPFTMAIN 09:44 | PROVIDERS: ATTEND Internal Medicine Critical Care Medicine | DX: J45.909 Unspecified asthma, uncomplicated (principal); R94.2 Abnormal results of pulmonary function studies | CPT/HCPCS: 94060; 94726; 94729 ==

== ENCOUNTER → 2019-10-15 | Outpatient (CLI) | payer MEDICARE, BC ==
[2019-10-15 09:24] LABS: Basophils % (A) 1 %; Eosinophils # (A) 0.3 k/uL (0-0.7); Eosinophils % (A) 6 %; HCT 41.6 % (39.0-53.0); HGB 13.1 gm/dL (13.0-17.5); Lymphocytes # (A) 1.1 k/uL (1.0-4.8); Lymphocytes % (A) 21 %; MCH 30.1 pg (25.0-35.0); MCHC 31.5 g/dL (31.0-37.0); MCV 95.6 fL (80.0-100.0); Mean Platelet Volume 8.7; Monocytes # (A) 0.4 k/uL (0-1.0); Monocytes % (A) 8 %; Neutrophils # (A) 3.3 k/uL (1.3-7.7); Neutrophils % (A) 62 %; Platelet Count 132 k/uL (150-450); RBC 4.35 m/uL (4.30-5.90); RDW 13.6 % (11.5-15.5); WBC 5.4 k/uL (3.8-10.6)
[2019-10-15 16:54] LABS: African American GFR (CKD) 68.1 (60.0-200.0); Albumin 4.5 g/dL (3.80-4.90); Albumin/Globulin Ratio 2.25 (1.60-3.17); Anion Gap 7.6 mmol/L (4.00-12.00); BUN/Creat Ratio 21.67 Ratio (12.00-20.00); Calcium 9.4 mg/dL (8.7-10.3); Carbon Dioxide 24.4 mmol/L (21.6-31.8); Chol/HDL Ratio 3.13; LDL Cholesterol,Calculated 57.2 mg/dL (0.0-131.0); Non-African American GFR(CKD) 58.8 (60.0-200.0); Potassium 4.5 mmol/L (3.5-5.5); Total Bilirubin 0.6 mg/dL (0.3-1.2); Total Protein 6.5 g/dL (6.2-8.2); VLDL Calculation 27.8 mg/dL (5.00-40.00)
[2019-10-15 17:25] LABS: Hemoglobin A1C 6.9 % (4.0-6.0)
== END | disposition home or self-care (01) ==
LOC: LABWHC1 08:49
PROVIDERS: ATTEND Internal Medicine
DX: E78.2 Mixed hyperlipidemia (principal); E11.9 Type 2 diabetes mellitus without complications; I10 Essential (primary) hypertension
CPT/HCPCS: 36415; 80053; 80061; 83036; 84443; 85025

== ENCOUNTER → 2019-12-24 | Outpatient (CLI) | payer MEDICARE, BC ==
--- NOTE | 2019-12-24 11:37 | US ---
EXAMINATION TYPE: US venous doppler duplex LE LT DATE OF EXAM: 12/24/2019 11:29 AM COMPARISON: NONE CLINICAL HISTORY: M79.605 pain in left leg. SIDE PERFORMED: TECHNIQUE: The lower extremity deep venous system is examined utilizing real time linear array sonog benigno with graded compression, doppler sonography and color-flow sonography. VESSELS IMAGED: External Iliac Vein (EIV) Common Femoral Vein Deep Femoral Vein Greater Saphenous Vein * Femoral Vein Popliteal Vein Small Saphenous Vein * Proximal Calf Veins (* superficial vessels) Left Leg: Negative for DVT. Complex fluid collection is seen anterior thigh at muscle level area of pain and size = 11.6 x 2.6 x 2.3cm. IMPRESSION: No evidence for DVT.
== END | disposition home or self-care (01) ==
LOC: RADUSWWP 10:57
PROVIDERS: ATTEND Internal Medicine
DX: M79.605 Pain in left leg (principal)

== ENCOUNTER → 2021-01-18 | Outpatient (CLI) | payer MEDICARE, BC ==
[2021-01-18 21:20] LABS: Chol/HDL Ratio 3.04; LDL Cholesterol,Calculated 66.6 mg/dL (0.0-131.0); VLDL Calculation 25.4 mg/dL (5.00-40.00)
== END | disposition home or self-care (01) ==
LOC: LABWHC1 08:33
PROVIDERS: ATTEND Nurse Practitioner Adult Health
DX: E78.2 Mixed hyperlipidemia (principal)
CPT/HCPCS: 36415; 80061; 84450; 84460

== ENCOUNTER 2022-01-10 10:18 | Emergency (ER) | payer MEDICARE, BC ==
[2022-01-10 11:43] VITALS: TEMP 99.2
--- NOTE | 2022-01-10 12:35 | XR ---
EXAMINATION TYPE: XR chest 2V, XR ribs LT DATE OF EXAM: 01/10/2022 COMPARISON: Prior chest x-ray December 19, 2017 HISTORY: Chest and left-sided rib pain after fall injury. TECHNIQUE: Frontal and lateral views of the chest are obtained. A frontal and oblique images left-si ded ribs. FINDINGS: Overlying sternal wires and mediastinal clips along with left atrial appendage clip and met allic aortic valve are redemonstrated. There is some chronic parenchymal change without suspicious fo lucio air space opacity, pleural effusion, or pneumothorax seen. Mild cardiomegaly redemonstrated. Th e osseous structures are intact. Dedicated images of the left-sided ribs show no acute displaced fracture. Overlying soft tissue is un remarkable. IMPRESSION: 1. Chronic changes and mild cardiomegaly without acute pulmonary process. 2. No acute displaced left-sided rib fracture.
--- NOTE | 2022-01-10 12:37 | XR ---
EXAMINATION TYPE: XR hand complete LT DATE OF EXAM: 01/10/2022 CLINICAL HISTORY: Falling injury with pain TECHNIQUE: Frontal, lateral and oblique images of the left hand are obtained. COMPARISON: None. FINDINGS: There is no acute fracture/dislocation evident in the left hand. Mild to moderate narrowin g and spurring throughout the PIP and DIP joints of the phalanges. [id number] narrowing secon d and third metacarpophalangeal joints. [id number] narrowing base of first metacarpal with mo derate spurring. The overlying soft tissue appears unremarkable. IMPRESSION: There is no acute fracture or dislocation in the left hand.
[2022-01-10] MEDS ORDERED: KETOROLAC 15 MG/ML 1 ML VIAL IM STA (12:58)
[2022-01-10] MEDS ORDERED: HYDROmorphone 0.5 MG/0.5 ML SYRINGE IVP STA (12:58)
[2022-01-10] MEDS ORDERED: DIPH,PERTUS(ACELL)TETVAC-LF 0.5 ML VIAL IM ONE (12:59)
--- NOTE | 2022-01-10 13:04 | ED ---
General Adult HPI - General Chief complaint: Back Pain/Injury Stated complaint: fall - lt chest pain Time Seen by Provider: 01/10/22 12:45 Source: patient, RN notes reviewed, old records reviewed Mode of arrival: ambulatory Limitations: no limitations - History of Present Illness Initial comments: This is a 76-year-old male who presents emergency Department complaining that he fell 2 days ago. Patient states he hurt his hand on the left side a little but the left ribs are very tender and it hurts to cough or take deep breath. Patient denies shortness of breath. Patient denies any cough. Patient denies any fever chills per patient denies any anterior chest pain. Patient denies any back pain. Patient denies abdominal pain patient denies hitting his head or neck. Patient is only taking Tylenol at this time. - Related Data Home Medications Medication Instructions Recorded Confirmed Calcium Carbonate/Vitamin D3 1 tab PO HS 10/03/16 12/04/17 [Calcium 600-Vit D3 800 Tab] Doxazosin Mesylate [Cardura] 8 mg PO BID 10/03/16 12/04/17 Finasteride [Proscar] 5 mg PO HS 10/03/16 12/04/17 Glimepiride [Amaryl] 4 mg PO BID 10/03/16 12/04/17 Montelukast [Singulair] 10 mg PO DAILY 10/03/16 12/04/17 Vitamin E 400 unit PO HS 10/03/16 12/04/17 amLODIPine [Norvasc] 5 mg PO BID 10/03/16 12/04/17 metFORMIN HCL [Metformin HCl] 1,000 mg PO BID 10/03/16 12/04/17 Mometasone/Formoterol [Dulera 100 2 puff INHALATION RT-BID PRN 11/17/17 12/04/17 Mcg-5 Mcg Inhaler] carvediloL [Coreg] 6.25 mg PO BID 11/17/17 12/04/17 Pioglitazone [Actos] 15 mg PO QAM 11/21/17 12/04/17 Previous Rx's Medication Instructions Recorded Atorvastatin [Lipitor] 40 mg PO HS #30 tab 11/20/17 Aspirin 325 mg PO DAILY #30 tab 12/08/17 Clopidogrel [Plavix] 75 mg PO DAILY #30 tab 12/08/17 Furosemide [Lasix] 20 mg PO DAILY #0 12/08/17 HYDROcodone/APAP 5-325MG [[place] 1 each PO Q6HR PRN #30 tab 12/08/17 5-325] Losartan [Cozaar] 50 mg PO DAILY #30 tab 12/08/17 Pantoprazole [Protonix] 40 mg PO AC-BRKFST #30 tablet. 12/08/17 Sennosides-Docusate Sodium 2 each PO HS #30 tab 12/08/17 [Senokot-S] hydrALAZINE HCL [Apresoline] 25 mg PO TID #60 tab 12/08/17 Ketorolac [Toradol] 10 mg PO Q6HR #15 tab 01/10/22 Allergies Allergy/AdvReac Type Severity Reaction Status Date / Time No Known Allergies Allergy Verified 01/10/22 11:43 Review of Systems ROS Statement: Those systems with pertinent positive or pertinent negative responses have been documented in the HPI. ROS Other: All systems not noted in ROS Statement are negative. Past Medical History Past Medical History: Asthma, Cancer, Diabetes Mellitus, Hyperlipidemia, Hypertension, Osteoarthritis (OA), Prostate Disorder Additional Past Medical History / Comment(s): AORTIC VALVE STENOSIS, HX SKIN CA. History of Any Multi-Drug Resistant Organisms: None Reported MDRO Source:: left leg 1961 Past Surgical History: Heart Catheterization Additional Past Surgical History / Comment(s): left leg infection removed, Benign right breast tumor 1961, Past Anesthesia/Blood Transfusion Reactions: No Reported Reaction Past Psychological History: No Psychological Hx Reported Past Alcohol Use History: Occasional Past Drug Use History: None Reported - Past Family History Mother Family Medical History: Cancer, Congestive Heart Failure (CHF) Additional Family Medical History / Comment(s): renal, melanoma Father Family Medical History: Cancer Additional Family Medical History / Comment(s): melanoma Sister(s) Family Medical History: AFIB Brother(s) Family Medical History: No Reported History Daughter(s) Family Medical History: No Reported History Son(s) Family Medical History: No Reported History General Exam - General Exam Comments Initial Comments: GENERAL: Patient is well-developed and well-nourished. Patient is nontoxic and well- hydrated and is in moderate distress. ENT: Neck is soft and supple. No significant lymphadenopathy is noted. Oropharynx is clear. Moist mucous membranes. Neck has full range of motion without eliciting any pain. EYES: The sclera were anicteric and conjunctiva were pink and moist. Extraocular movements were intact and pupils were equal round and reactive to light. Eyel ids were unremarkable. PULMONARY: Unlabored respirations. Good breath sounds bilaterally. No audible rales rhonchi or wheezing was noted. CARDIOVASCULAR: There is a regular rate and rhythm ABDOMEN: Soft and nontender with normal bowel sounds. SKIN: Abrasion of the hand superficial NEUROLOGIC: Patient is alert and oriented x3. Cranial nerves II through XII are grossly intact. Motor and sensory are also intact. Normal speech, volume and content. Symmetrical smile. MUSCULOSKELETAL: Normal extremities with adequate strength and full range of motion. Left hand has some tenderness over the fifth metatarsal there is also an abrasion LYMPHATICS: No significant lymphadenopathy is noted PSYCHIATRIC: Normal psychiatric evaluation. Limitations: no limitations Course Vital Signs 01/10/22 11:39 Temperature 99.2 F Pulse Rate 99 Respiratory 24 Rate Blood Pressure 121/68 O2 Sat by Pulse 97 Oximetry Medical Decision Making - Medical Decision Making patient's x-ray of the ribs and chest show no acute abnormality. Patient's x-ray of the hand shows no acute pathology. I spoke with the patient and he was only taking Tylenol also I will add Toradol to his regime at home. And I will give him some Tylenol with codeine for sleep. I told patient to follow-up with Dr. Parish tomorrow for any prescription with longer duration. Patient did receive Toradol tetanus and Dilaudid in the emergency department. Disposition Clinical Impression: Rib fracture, Hand contusion, Abrasion hand Disposition: HOME SELF-CARE Condition: Good Additional Instructions: Patient should take deep breaths 10 times every hour so he does not sit up and pneumonia. Patient should take the Toradol until it is gone after he takes a Toradol he can start taking Motrin 600 mg every 8 hours. Patient continue taking Tylenol 650 mg every 4-6 hours when necessary for pain. Prescriptions: Ketorolac [Toradol] 10 mg PO Q6HR #15 tab Is patient prescribed a controlled substance at d/c from ED?: No Referrals: Jose Raul Parish MD [Primary Care Provider] - 1-2 days Time of Disposition: 13:03
[2022-01-10] MEDS ORDERED: HYDROmorphone 0.5 MG/0.5 ML SYRINGE IM STA (13:19)
[2022-01-10 13:57] VITALS: BP 119/79; PULSE 89; RESP 18
== END 2022-01-10 13:29 | disposition home or self-care (01) ==
LOC: EC 10:18
DX: S22.39XA Fracture of one rib, unspecified side, initial encounter for closed fracture (principal); S60.222A Contusion of left hand, initial encounter; S60.512A Abrasion of left hand, initial encounter; Z23 Encounter for immunization; J45.909 Unspecified asthma, uncomplicated; E11.9 Type 2 diabetes mellitus without complications; E78.5 Hyperlipidemia, unspecified; I10 Essential (primary) hypertension; M19.90 Unspecified osteoarthritis, unspecified site; Z79.82 Long term (current) use of aspirin; Z79.84 Long term (current) use of oral hypoglycemic drugs; Z79.899 Other long term (current) drug therapy
CPT/HCPCS: 71100; 73130; 71046; 90715; 99284; 96372 ×2; 90471; J1885; J1170

== ENCOUNTER 2022-01-24 09:25 | Inpatient (IN) | payer MEDICARE, BC ==
[2022-01-24 12:15] LABS: Glucose,Whole Blood 163 mg/dL (70-110)
[2022-01-24 14:44] LABS: Appearance,Urine Clear (Clear); Bacteria,Urine Rare /hpf; Bilirubin,Urine Negative (Negative); Blood,Urine Negative (Negative); Color,Urine Light Yellow; Glucose,Urine (UA) 4+ (Negative); Ketones,Urine Negative (Negative); Leukocyte Esterase,Urine Trace (Negative); Nitrite,Urine Negative (Negative); Protein,Urine Negative (Negative); Specific Gravity,Urine 1.012 (1.001-1.035); Squamous Epithelial Cell,Urine <1 /hpf (0-4); Urobilinogen,Urine <2.0 mg/dL (<2.0); WBC,Urine 3 /hpf (0-5)
[2022-01-24] MEDS: AMPICILLIN 2,000 MG in SODIUM CHLORIDE 0.9% 100 ML IVPB SCH ×2 (15:08→20:12)
[2022-01-24] MEDS ORDERED: DEXTROSE 50% SYRINGE 50 ML IVP PRN ×2 (15:10)
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
[2022-01-24 15:37] LABS: Basophils % (A) 1 %; Eosinophils # (A) 0.1 k/uL (0-0.7); Eosinophils % (A) 1 %; HCT 35.4 % (39.0-53.0); HGB 11.7 gm/dL (13.0-17.5); Lymphocytes # (A) 0.9 k/uL (1.0-4.8); Lymphocytes % (A) 9 %; MCV 93.9 fL (80.0-100.0); Mean Platelet Volume 8.1; Monocytes # (A) 0.4 k/uL (0-1.0); Monocytes % (A) 4 %; Neutrophils # (A) 8.2 k/uL (1.3-7.7); Neutrophils % (A) 85 %; Platelet Count 205 k/uL (150-450); RBC 3.76 m/uL (4.30-5.90); RDW 13.9 % (11.5-15.5); WBC 9.7 k/uL (3.8-10.6)
[2022-01-24 15:46] LABS: INR 1.1 (<1.2); Partial Thromboplastin Time 26.5 sec (22.0-30.0); Prothrombin Time 11.9 sec (9.0-12.0)
[2022-01-24 15:49] LABS: ALT 41 U/L (4-49); AST 27 U/L (17-59); African American GFR (CKD) 86 (>60 ml/min/1.73 sqM); Albumin 2.9 g/dL (3.5-5.0); Alkaline Phosphatase 65 U/L (38-126); Anion Gap 9 mmol/L; Blood Urea Nitrogen 14 mg/dL (9-20); Calcium 8.2 mg/dL (8.4-10.2); Carbon Dioxide 24 mmol/L (22-30); Chloride 104 mmol/L (98-107); Glucose 160 mg/dL (74-99); Magnesium 2.2 mg/dL (1.6-2.3); Non-African American GFR(CKD) 74 (>60 ml/min/1.73 sqM); Potassium 4.1 mmol/L (3.5-5.1); Sodium 137 mmol/L (137-145); Total Bilirubin 0.5 mg/dL (0.2-1.3); Total Protein 5.4 g/dL (6.3-8.2)
--- NOTE | 2022-01-24 16:18 | P.GSCN ---
History of Present Illness Consult date: 01/24/22 Reason for Consult: Aortic valve vegetation per evidence on transesophageal echocardiogram Requesting physician: Grey Scruggs History of present illness: This is a 76-year-old gentleman who follows on an outpatient basis with Dr. Parish for his primary care service and with Dr. Cárdenas for his cardiology care. Is a past medical history significant for hypertension, hyperlipidemia, history of severe aortic valve stenosis status post aortic valve replacement with a 23 mm Inspiris bioprosthetic aortic valve insulin-dependent diabetes mellitus type 2, sleep apnea without any home CPAP use, COPD, asthma, gout, obesity with a BMI of 32.9 kg/m, remote history of non-ST elevated myocardial infarction in October 2017 with an RCA stenosis of 30-40% at that time, a large prostate, recent removal of melanoma to his back and remote history of nicotine dependence in which he quit smoking in the early . On 01/17/2022 the patient presented to the emergency department at [facility] due to some disorien tation and mental status changes. He denies any recent nausea, vomiting, fever, chills, cough, palpitations, presyncope, syncope, headache, chest pain or chest pressure. He reports that recently he has been having some burning sensation with urinating. According to his chart from [facility] his initial urinalysis was negative for any organism although a repeat urinalysis showed positive for an enterococcus species. Due to the patient's mental status changes a computed tomography scan of his brain was completed which did not show any evidence of acute infarct or bleed. A computed tomography scan of his chest, abdomen and pelvis was also completed which showed some apparent perinephritic fat stranding without evidence of hydronephrosis, evidence of sigmoid diverticulosis without diverticulitis, cardiomegaly with bilateral pleural effusions and possible pulmonary fibrosis. The computed tomography scan of his cervical spine showed evidence of spondylosis of the cervical spine without evidence of fracture. Initial laboratory results on 01/17/2022 showed a WBC count of 10.3, hemoglobin 13.6, hematocrit 40.4, platelets 147, sodium 132, potassium 4.3, chloride 99, CO2 21.3, BUN 24, creatinine 1.4, glucose 161, calcium 8.7, AST 32, ALT 66, troponin was slightly elevated at 96 BNP and his following troponins were slightly higher at 107, 1005, CRP 12.9, lactic acid 1 .1, PT 11.5, and INR 1.12. A 12-lead EKG was completed which showed normal sinus rhythm with a first-degree AV block with a heart rate of 90 BPM. According to the patient's chart from [facility] the patient did have blood cultures positive for enterococcus faecalis and was subsequently started on ampicillin and Rocephin for antibiotic treatment. Due to the patient's history of aortic valve replacement and positive blood cultures a transthoracic 2-D echocardiogram was completed. The 2-D echocardiogram showed a bioprosthetic aortic valve to be present, normal prosthetic aortic valve gradient, no aortic valve regurgitation and no aortic valvular stenosis. It also showed mild mitral annular calcification with mild to moderate mitral valve regurgitation, no mitral valve stenosis, mild tricuspid valve regurgitation, trace pulmonic valve regurgitation, aortic root to be normal in size, no pericardial effusion and his left ventricular systolic function to be normal with a left ventricular ejection fraction of 55%. For further evaluation the patient underwent a transesophageal echocardiogram on 01/22/2022 which demonstrated his left ventricular systolic function to be normal with a left ventricular ejection fraction to be 55-60%, a bioprosthetic aortic valve to be present, no aortic valve regurgitation, a small aortic valve vegetation present measuring 0.53 cm, mitral annular calcification, moderate mitral valve regurgitation, mild to moderate tricuspid valve regurgitation, ascending aorta to be normal in size, the ascending aorta to be normal in caliber and no pericardial effusion. Subsequently, due to the findings of a vegetation present on his bioprosthetic aortic valve a consult was placed to Dr. Omi Molina from cardiothoracic surgery for further evaluation and treatment recommendations. Review of Systems A 14 point review of systems was completed except as mentioned in the HPI. Past Medical History Past Medical History: Asthma, Cancer, COPD, Diabetes Mellitus, Hyperlipidemia, Hypertension, Myocardial Infarction (non Q-wave), Osteoarthritis (OA), Prostate Disorder, Sleep Apnea/CPAP/BIPAP Additional Past Medical History / Comment(s): AORTIC VALVE STENOSIS, HX SKIN CA melanoma removed from back November 2021 History of Any Multi-Drug Resistant Organisms: None Reported MDRO Source:: left leg 1961 Past Surgical History: Cardiac Valve Replacement, Heart Catheterization Additional Past Surgical History / Comment(s): left leg infection removed, Benign right breast tumor 1961; Aortic valve 23 mm Inspiris bioprosthetic valve [place] [address] Lopez Past Anesthesia/Blood Transfusion Reactions: No Reported Reaction Past Psychological History: No Psychological Hx Reported Smoking Status: Former smoker Past Alcohol Use History: Occasional Additional Past Alcohol Use History / Comment(s): Quit 1992, smoked 1ppd from age 16, Past Drug Use History: None Reported - Past Family History Mother Family Medical History: Cancer, Congestive Heart Failure (CHF) Additional Family Medical History / Comment(s): renal, melanoma Father Family Medical History: Cancer Additional Family Medical History / Comment(s): melanoma Sister(s) Family Medical History: AFIB Brother(s) Family Medical History: No Reported History Daughter(s) Family Medical History: No Reported History Son(s) Family Medical History: No Reported History Medications and Allergies Home Medications Medication Instructions Recorded Confirmed Type Doxazosin Mesylate [Cardura] 8 mg PO BID 10/03/16 01/24/22 History Finasteride [Proscar] 5 mg PO DAILY 10/03/16 01/24/22 History Glimepiride [Amaryl] 4 mg PO BID 10/03/16 01/24/22 History Montelukast [Singulair] 10 mg PO DAILY 10/03/16 01/24/22 History Atorvastatin [Lipitor] 40 mg PO HS #30 tab 11/20/17 01/24/22 Rx Aspirin 325 mg PO DAILY #30 tab 12/08/17 01/24/22 Rx Albuterol Sulfate [Albuterol 1 puff PO RT-Q4H PRN 01/24/22 01/24/22 History Sulfate Hfa] Baclofen 10 mg PO BID PRN 01/24/22 01/24/22 History Calcium Carbonate [Calcium] 600 mg PO BID 01/24/22 01/24/22 History Clotrimazole/Betameth Cream 1 applic TOPICAL BID 01/24/22 01/24/22 History [Lotrisone] Dapagliflozin Propanediol [Farxiga] 10 mg PO DAILY 01/24/22 01/24/22 History Febuxostat [Uloric] 40 mg PO DAILY 01/24/22 01/24/22 History Fluticasone Propion/Salmeterol 2 puff INHALATION RT-BID 01/24/22 01/24/22 History [Advair Hfa 115-21 Mcg Inhaler] Furosemide [Lasix] 40 mg PO DAILY 01/24/22 01/24/22 History Insulin Glargine,Hum.rec.anlog 24 units SQ HS 01/24/22 01/24/22 History [Toueugenio Solostar] Losartan Potassium [Cozaar] 100 mg PO DAILY 01/24/22 01/24/22 History Magnesium 250 mg PO DAILY 01/24/22 01/24/22 History Pioglitazone [Actos] 30 mg PO DAILY 01/24/22 01/24/22 History Tamsulosin HCl [Flomax] 0.4 mg PO DAILY 01/24/22 01/24/22 History allopurinoL 100 mg PO DAILY 01/24/22 01/24/22 History amLODIPine [Norvasc] 5 mg PO BID 01/24/22 01/24/22 History hydrALAZINE HCL [Apresoline] 100 mg PO TID-W/MEALS 01/24/22 01/24/22 History Allergies Allergy/AdvReac Type Severity Reaction Status Date / Time No Known Allergies Allergy Verified 01/24/22 14:07 Surgical - Exam Vital Signs Temp Pulse Resp BP Pulse Ox 98.4 F 51 L 24 137/60 96 01/24/22 12:20 01/24/22 12:20 01/24/22 12:20 01/24/22 12:20 01/24/22 12:20 - General well developed, well nourished, no distress, no pain, obese - Eyes PERRL, normal ocular movement, no pale, no icteric, no loss of movement - ENT normal pinna, normal nares, normal mucosa, no congestion, decreased hearing, poor prison, dentures (Partial upper plate) - Neck Neck is supple, no JVD. No bruits. no masses, no bruits, trachea midline, no venous distension - Respiratory Lungs sounds essentially clear to his bilateral upper lobes, diminished bilateral bases with few scattered crackles. No wheezes, or rhonchi. Respirations are symmetrical and nonlabored. - Cardiovascular Regular rhythm and rate. S1 and S2 present, negative for S3, or gallop. Soft systolic murmur heard heard best to his base. Trace peripheral edema to his bilateral lower extremities. - Abdomen Abdomen is soft, nontender and nondistended. Active bowel sounds present in all 4 abdominal quadrants. No guarding or rigidity. No organomegaly appreciated. - Genitourinary Deferred - Rectum Deferred - Integumentary Skin is warm and dry. No clubbing or cyanosis is present. no rash, no growths, no abnormal pigmentation - Neurologic No focal deficits. normal coordination, normal sensation - Musculoskeletal Moves all 4 extremities with equal strength bilaterally. normal gait, normal posture - Psychiatric oriented to time, oriented to person, oriented to place, speech is normal, mem ory intact Results - Labs 01/24/22 15:19 01/24/22 15:19 Abnormal Lab Results - Last 24 Hours (Table) 01/24/22 Range/Units 12:13 POC Glucose (mg/dL) 163 H (70-110) mg/dL - Imaging Chest x-ray: report reviewed CT scan - abdomen: report reviewed CT scan - chest: report reviewed CT scan - pelvis: report reviewed EKG: report reviewed Additional studies: Transthoracic and transesophageal echocardiogram results reviewed. Assessment and Plan Assessment: 1. Positive bacteremia with positive blood cultures showing enterococcus faecalis 2. Small aortic valve vegetation as evidence on transesophageal echocardiogram 3. Moderate mitral valve regurgitation on transesophageal echocardiogram 4. Possible urinary tract infection, history of UTI in the past with pseudomonas aeruginosa in January 2020 5. History of severe aortic valve stenosis, status post aortic valve replacement with a 23 mm INspiris bioprosthetic aortic valve in November 2017 6. Cardiac arrhythmia, with high-grade AV block with heart rate in the 50s 7. Hypertension 8. Hyperlipidemia 9. History of coronary artery disease with a 30-40% stenosis to his mid right coronary artery in October 2017 10. Insulin-dependent diabetes mellitus type 2 11. Obesity with a BMI of 32.9 kg/m 12. Obstructive sleep apnea without CPAP use 13. COPD 14. History of asthma 15. Remote history of nicotine dependence quit smoking in 1992 16. Altered mental status, resolved 17. Enlarged prostate 18. History of gout Plan: The patient was seen and examined at his bedside in the intensive care unit with the patient present. His chart and diagnostics were reviewed. This case was discussed in detail with Dr. Omi Molina from cardiothoracic surgery. Preoperative testing and preoperative teaching was initiated. The patient's last heart catheterization was in October 2017, the patient will likely need a heart catheterization this admission. Continue antibiotic management per infectious disease recommendations for his blood cultures showing positive for enterococcus faecalis. Blood cultures have been ordered here at [facility]. Medical management other comorbidities per primary care service. We will order a CT scan of facial bones without contrast with Panorex reconstruction. Encourage use of incentive spirometry 10 times every hour while awake. More recommendations to follow based on patient's clinical course and as his preoperative testing has been collected. Thank you Dr. Scruggs for this consult and we look for to working with you in the care of this patient. I have personally seen and examined the patient, performed the documentation and the assessment and plan as written. 30 minutes spent on the visit . Akash Bird TOWN MANAGER-C Attending Addendum: I saw and evaluated the patient with the TOWN MANAGER above. Agree with his assessment and plan. This is a 76 year-old male who underwent AVR (#23 Inspiris) in 2018 with LAAL who presented to an OSH with confusion. He has a hx of pseudomonas UTI in 2020 and had some dysuria for the last 5 weeks but did not seek treatment. He was found to have E. 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 He is also in a junctional rhythm and it is unclear to me how much of the root is involved with infection based on imaging. Nonetheless, he does not have wide open AI. He does have some moderate MR without endocarditis. Recommend IV antibiotics, ID consult, diuresis and supportive care for now. Rhythm management per cardiology. We will continue to follow this patient and determine best course of action.
--- NOTE | 2022-01-24 16:24 | P.CNPUL ---
History of Present Illness Consult date: 01/24/22 Requesting physician: Bruno Parish Reason for consult: other (Acute endocarditis and underlying COPD) Chief complaint: Altered mental status History of present illness: This is a 76-year-old white male with history of multiple medical problems including hypertension, diabetes with diabetic polyneuropathy, dyslipidemia, history of COPD and he normally sees Dr. Ferreira for his COPD. Patient is also known to have history of obstructive sleep apnea syndrome, and melanoma resected from the back previously. Patient was admitted to [facility] back on 01/20/22, he was basically admitted with mental status change, or, and tachycardia. Patient had a previous history of aortic valve replacement in 2018, and patient was noted to have positive blood cultures for enterococcus faecalis. Continued to have positive blood cultures, he was seen by cardiology, and on 01/22, the patient underwent REESE which clearly confirmed vegetations on the aortic valve. It was reported as a small aortic valve vegetation present on a bioprosthetic aortic valve. His REESE also showed moderate mitral regurgitation and moderate tricuspid regurgitation. Patient was seen by infectious disease, started on broad-spectrum antibiotics, and no major arrhythmias noted until today. On telemetry monitoring, the patient was noted to have high grade AV block's with some bradycardia. He was also noted to have progression of his AV block's, and PVCs consistent with extension of the infection into the septal myocardium. Hence arrangements were made to transfer the patient to [facility] to be seen by the cardiothoracic surgical team. In the meantime the patient has been on Rocephin and ampicillin and vancomycin. Again infectious disease service is addressing the antibiotics accordingly. I saw the patient upon arrival to the ICU, he seems to be fairly comfortable, not in any distress, and hemodynamically stable. Patient is noted to have intermittently high-grade AV blocks, and cardiology will be evaluating the patient while in the ICU shortly. Cardiac consultation is pending. Labs were reviewed WBC count is 9.7 hemoglobin is 11.7 a left was are normal renal profile is normal, urinalysis is unremarkable. Review of Systems Constitutional: Negative EENT: Negative Lungs: Negative Cardiovascular: Refer to HPI Abdominal: Negative Genitourinary: Negative Musculoskeletal: Negative Integumentary: Negative Neurologic: Negative, patient's mental status change on his initial admission lasted for 24 hours and resolved on its own Psychiatric: Negative Endocrine: Negative. Past Medical History Past Medical History: Asthma, Cancer, COPD, Diabetes Mellitus, Hyperlipidemia, Hypertension, Myocardial Infarction (non Q-wave), Osteoarthritis (OA), Prostate Disorder, Sleep Apnea/CPAP/BIPAP Additional Past Medical History / Comment(s): AORTIC VALVE STENOSIS, HX SKIN CA melanoma removed from back November 2021 History of Any Multi-Drug Resistant Organisms: None Reported MDRO Source:: left leg 1961 Past Surgical History: Cardiac Valve Replacement, Heart Catheterization Additional Past Surgical History / Comment(s): left leg infection removed, Benign right breast tumor 1961; Aortic valve 23 mm Inspiris bioprosthetic valve [place] [address] Lopez Past Anesthesia/Blood Transfusion Reactions: No Reported Reaction Past Psychological History: No Psychological Hx Reported Smoking Status: Former smoker Past Alcohol Use History: Occasional Additional Past Alcohol Use History / Comment(s): Quit 1992, smoked 1ppd from age 16, Past Drug Use History: None Reported - Past Family History Mother Family Medical History: Cancer, Congestive Heart Failure (CHF) Additional Family Medical History / Comment(s): renal, melanoma Father Family Medical History: Cancer Additional Family Medical History / Comment(s): melanoma Sister(s) Family Medical History: AFIB Brother(s) Family Medical History: No Reported History Daughter(s) Family Medical History: No Reported History Son(s) Family Medical History: No Reported History Medications and Allergies Home Medications Medication Instructions Recorded Confirmed Type Doxazosin Mesylate [Cardura] 8 mg PO BID 10/03/16 01/24/22 History Finasteride [Proscar] 5 mg PO DAILY 10/03/16 01/24/22 History Glimepiride [Amaryl] 4 mg PO BID 10/03/16 01/24/22 History Montelukast [Singulair] 10 mg PO DAILY 10/03/16 01/24/22 History Atorvastatin [Lipitor] 40 mg PO HS #30 tab 11/20/17 01/24/22 Rx Aspirin 325 mg PO DAILY #30 tab 12/08/17 01/24/22 Rx Albuterol Sulfate [Albuterol 1 puff PO RT-Q4H PRN 01/24/22 01/24/22 History Sulfate Hfa] Baclofen 10 mg PO BID PRN 01/24/22 01/24/22 History Calcium Carbonate [Calcium] 600 mg PO BID 01/24/22 01/24/22 History Clotrimazole/Betameth Cream 1 applic TOPICAL BID 01/24/22 01/24/22 History [Lotrisone] Dapagliflozin Propanediol [Farxiga] 10 mg PO DAILY 01/24/22 01/24/22 History Febuxostat [Uloric] 40 mg PO DAILY 01/24/22 01/24/22 History Fluticasone Propion/Salmeterol 2 puff INHALATION RT-BID 01/24/22 01/24/22 History [Advair Hfa 115-21 Mcg Inhaler] Furosemide [Lasix] 40 mg PO DAILY 01/24/22 01/24/22 History Insulin Glargine,Hum.rec.anlog 24 units SQ HS 01/24/22 01/24/22 History [Tovince Solostar] Losartan Potassium [Cozaar] 100 mg PO DAILY 01/24/22 01/24/22 History Magnesium 250 mg PO DAILY 01/24/22 01/24/22 History Pioglitazone [Actos] 30 mg PO DAILY 01/24/22 01/24/22 History Tamsulosin HCl [Flomax] 0.4 mg PO DAILY 01/24/22 01/24/22 History allopurinoL 100 mg PO DAILY 01/24/22 01/24/22 History amLODIPine [Norvasc] 5 mg PO BID 01/24/22 01/24/22 History hydrALAZINE HCL [Apresoline] 100 mg PO TID-W/MEALS 01/24/22 01/24/22 History Allergies Allergy/AdvReac Type Severity Reaction Status Date / Time No Known Allergies Allergy Verified 01/24/22 14:07 Physical Exam Vitals: Vital Signs Temp Pulse Resp BP Pulse Ox 01/24/22 14:20 58 L 25 H 156/135 94 L 01/24/22 14:00 55 L 28 H 147/69 94 L 01/24/22 13:40 56 L 19 143/86 94 L 01/24/22 13:20 54 L 12 126/63 94 L 01/24/22 13:10 40 L 14 126/63 95 01/24/22 13:00 57 L 22 95 01/24/22 12:50 53 L 20 96 01/24/22 12:40 48 L 22 148/67 95 01/24/22 12:30 46 L 24 95 01/24/22 12:20 98.4 F 51 L 24 137/60 96 Intake and Output 01/24/22 01/24/22 01/24/22 06:59 14:59 22:59 Intake Total 510 Output Total 300 Balance 210 Intake: IV 510 0.9NS 10 Vancomycin 500 Output: Urine 300 Other: Voiding Method Urinal # Voids 1 Weight 104 kg Physical Exam: Revealed a 76-year-old white male in no distress, on room air. Head: Atraumatic, normocephalic. HEENT:[Neck is supple.] [No neck masses.] [No thyromegaly.] [No JVD.] Chest: [Clear throughout, no crackles, no rhonchi, no wheezes.] Cardiac Exam: Distant S1 and S2, positive aortic valve click, and systolic ej ection murmur best heard over the aortic area Abdomen: [Obese, Soft, nontender, no megaly, no rebound, no guarding, normal bowel sounds.] Extremities: [No clubbing, no edema, no cyanosis.] Good pulses bilaterally Neurological Exam: Alert and oriented 3. [No focal neurologic deficit.] Psychiatric: Normal mood affect and normal mental status examination. Skin no rashes and no petechiae Results - Laboratory Findings CBC and BMP: 01/24/22 15:19 01/24/22 15:19 PT/INR, D-dimer PT 11.9 sec (9.0-12.0) 01/24/22 15:19 INR 1.1 (<1.2) 01/24/22 15:19 Abnormal lab findings: Abnormal Labs 01/24/22 01/24/22 01/24/22 12:13 14:10 15:19 RBC 3.76 L Hgb 11.7 L Hct 35.4 L Neutrophils # 8.2 H Lymphocytes # 0.9 L Glucose POC Glucose (mg/dL) 163 H Calcium Total Protein Albumin Urine Glucose (UA) 4+ H Ur Leukocyte Esterase Trace H Urine Bacteria Rare H 01/24/22 15:19 RBC Hgb Hct Neutrophils # Lymphocytes # Glucose 160 H POC Glucose (mg/dL) Calcium 8.2 L Total Protein 5.4 L Albumin 2.9 L Urine Glucose (UA) Ur Leukocyte Esterase Urine Bacteria Assessment and Plan Assessment: Impression: 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 High-grade AV block secondary to endocarditis involving the aortic valve Acute encephalopathy secondary to endocarditis and sepsis History of underlying COPD presently inactive Benign essential hypertension Type 2 diabetes Benign prostatic hyperplasia with mild obstructive symptoms patient is maintained on medications Seasonal ALLERGIC rhinitis Recommendation: Continue to monitor in the ICU Continue antibiotics Cardiology and cardiothoracic surgery to evaluate on consultation Infectious disease to evaluate and tailor antibiotics accordingly Bronchodilators for his underlying COPD including DuoNeb and Symbicort Resume home meds for his diabetes GI and DVT prophylaxis. And that includes heparin and Protonix We will continue to follow. Time with Patient: Greater than 30
[2022-01-24 16:54] LABS: T4, Free (Free Thyroxine) 1.36 ng/dL (0.78-2.19)
[2022-01-24 17:09] LABS: Glucose,Whole Blood 127 mg/dL (70-110)
[2022-01-24] MEDS: INSULIN ASPART (NovoLOG) 100 UNIT/ML VIAL SQ SCH ×2 (17:29→20:58)
[2022-01-24] MEDS: hydrALAZINE HCL 50 MG TAB PO SCH (18:02)
[2022-01-24] MEDS ORDERED: KETOROLAC 15 MG/ML 1 ML VIAL IVP STA (18:37)
[2022-01-24] MEDS: ALBUTEROL NEBULIZED 2.5 MG/3 ML INHALATION PRN (18:44)
[2022-01-24] MEDS: SYMBICORT 160-4.5 MCG INHALER INHALATION SCH (18:44)
[2022-01-24 20:56] LABS: Glucose,Whole Blood 140 mg/dL (70-110)
[2022-01-24] MEDS: ATORVASTATIN 40 MG TAB PO SCH (20:57)
[2022-01-24] MEDS: amLODIPine 5 MG TAB PO SCH (20:57)
[2022-01-24] MEDS: CALCIUM CARBONATE 500 MG CHEWABLE PO SCH (20:57)
[2022-01-24] MEDS: HEPARIN SODIUM,PORCINE/PF 5,000 UNIT/0.5 ML SYRINGE SQ SCH (20:58)
[2022-01-24] MEDS ORDERED: GLIMEPIRIDE 4 MG TAB PO SCH (21:00)
[2022-01-24] MEDS ORDERED: CALCIUM CARBONATE 500 MG CHEWABLE PO SCH (21:00)
[2022-01-24] MEDS ORDERED: INSULIN DETEMIR (LEVEMIR) 100 UNIT/ML SYR SQ SCH (21:00)
[2022-01-24] MEDS: MUPIROCIN 2% OINT 22 GM TUBE NASAL SCH (21:08)
[2022-01-24] MEDS: DOXAZOSIN 4 MG TAB PO SCH (21:08)
[2022-01-24 23:37] LABS: Chol/HDL Ratio 2.67 Ratio; LDL Cholesterol,Calculated 38.9 mg/dL (0.0-131.0); VLDL Calculation 14.82 mg/dL (5.00-40.00)
[2022-01-24 23:57] LABS: Hepatitis A Antibody IgM Nonreactive (Nonreactive); Hepatitis B Core IgM Nonreactive (Nonreactive); Hepatitis B Surface Antigen Nonreactive (Nonreactive); Hepatitis C IgG Antibody Nonreactive (Nonreactive)
[2022-01-25] MEDS: AMPICILLIN 2,000 MG in SODIUM CHLORIDE 0.9% 100 ML IVPB SCH ×7 (00:21→23:59)
--- NOTE | 2022-01-25 01:34 | US ---
EXAMINATION TYPE: US carotid duplex BILAT DATE OF EXAM: 01/24/2022 COMPARISON: NONE CLINICAL HISTORY: Pre-Op Cardiac Surgery. Pre-op cardiac surgery TECHNIQUE: Carotid duplex ultrasound examination. Indirect Doppler criteria was utilized. FINDINGS: EXAM MEASUREMENTS: RIGHT: Peak Systolic Velocity (PSV) cm/sec ----- Right CCA: 112.9 ----- Right ICA: 135.8 ----- Right ECA: 159.3 ICA/CCA ratio: 1.2 RIGHT: End Diastole cm/sec ----- Right CCA: 17.6 ----- Right ICA: 15.6 ----- Right ECA: 0.0 LEFT: Peak Systolic Velocity (PSV) cm/sec ----- Left CCA: 101.6 ----- Left ICA: 132.3 ----- Left ECA: 71.1 ICA/CCA ratio: 1.3 LEFT: End Diastole cm/sec ----- Left CCA: 12.8 ----- Left ICA: 6.3 ----- Left ECA: 0.0 VERTEBRALS (direction of flow): Right Vertebral: Antegrade Left Vertebral: Antegrade Rhythm: Arrhythmia WATER CHEMIST NOTES: plaque seen in both bulbs IMPRESSION: There is slight elevated velocity in the internal carotid arteries bilaterally suggestive of 50-70% s tenosis. There is antegrade flow in the vertebral arteries. Criteria for Assigning % of Stenosis / Diameter reduction (Estimation based on the indirect measurements of the internal carotid artery velocities (ICA PSV). 1. Normal (no stenosis)=ICA PSV < 125 cm/s: ratio < 2.0: ICA EDV<40 cm/s. 2. Less than 50% stenosis=ICA PSV < 125 cm/s: ratio < 2.0: ICA EDV<40 cm/s. 3. 50 to 69% stenosis=ICA PSV of 125 to 230 cm/s: ration 2.0 ? 4.0: ICA EDV 40-100 cm/s. 4. Greater than 70% stenosis to near occlusion= ICA PSV > 230 cm/s: ratio > 4.0: ICA EDV > 100 cm/s. 5. Near occlusion= ICA PSV velocities may be low or undetectable: variable ratio and ICA EDV. 6. Total occlusion=unable to detect flow.
--- NOTE | 2022-01-25 06:09 | CT ---
EXAMINATION TYPE: CT Panorex DATE OF EXAM: 01/24/2022 COMPARISON: None. HISTORY: Preoperative cardiac valve surgery. CT DLP: 1010 mGycm Automated exposure control for dose reduction was used. TECHNIQUE: CT scan of the facial bones is performed without contrast, axial images are obtained, tori nal reformatted images are also reviewed. Panorex image is re-created on CT scanner. FINDINGS: Exam is for surgical planning and not for diagnostic purposes. The mandible is intact. Temp oromandibular joints are maintained bilaterally. The maxilla is intact. There are several missing parish th throughout the maxilla and mandible with multiple cavitary fillings and crowns identified causing streak artifact. Orbital floors and tamayo are intact. Globes are intact bilaterally. Mild to moderate mucosal thickeni ng in the right maxillary sinus is present otherwise paranasal sinuses are clear. Mastoid air cells shows no suspicious opacification. Visualized brain parenchyma shows mild to modera te diffuse cerebral atrophy and mild chronic small vessel ischemic change. IMPRESSION: As above
[2022-01-25 06:54] LABS: HCT 33.3 % (39.0-53.0); HGB 11.3 gm/dL (13.0-17.5); MCH 31.6 pg (25.0-35.0); MCV 93.2 fL (80.0-100.0); Mean Platelet Volume 8.1; Platelet Count 194 k/uL (150-450); RBC 3.57 m/uL (4.30-5.90); RDW 13.8 % (11.5-15.5); WBC 7.4 k/uL (3.8-10.6)
[2022-01-25] MEDS: PANTOPRAZOLE 40 MG TABLET PO SCH (07:13)
[2022-01-25] MEDS: hydrALAZINE HCL 50 MG TAB PO SCH ×3 (07:13→17:07)
[2022-01-25 07:14] LABS: Glucose,Whole Blood 69 mg/dL (70-110)
[2022-01-25] MEDS: INSULIN ASPART (NovoLOG) 100 UNIT/ML VIAL SQ SCH ×4 (07:14→21:15)
[2022-01-25 07:29] LABS: Glucose,Whole Blood 88 mg/dL (70-110)
[2022-01-25] MEDS: SYMBICORT 160-4.5 MCG INHALER INHALATION SCH ×2 (07:53→19:59)
--- NOTE | 2022-01-25 08:26 | P.PN ---
Subjective Progress Note Date: 01/25/22 Principal diagnosis: This is a 76-year-old gentleman who follows on an outpatient basis with Dr. Parish for his primary care service and with Dr. Cárdenas for his cardiology care. He has a past medical history significant for hypertension, hyperlipidemia, history of severe aortic valve stenosis status post aortic valve replacement with a 23 mm Inspiris bioprosthetic aortic valve, insulin-dependent diabetes mellitus type 2, sleep apnea without any home CPAP use, COPD, asthma, gout, obesity with a BMI of 32.9 kg/m, remote history of non-ST elevated myocardial infarction in October 2017 with an RCA stenosis of 30-40% at that time, benign prostatic hypertrophy, recent removal of melanoma to his back and a remote history of nicotine dependence in which he quit smoking in the early . On 01/17/2022 the patient presented to the emergency department at [facility] due to some disorientation and mental status changes. He denies any recent nausea, vomiting, fever, chills, cough, palpitations, presyncope, syncope, headache, chest pain or chest pressure. He reports that recently he has been having some burning sensation with urinating which started around 5 weeks ago. According to his chart from [facility] his initial urinalysis was negative for any organism although a repeat urinalysis showed positive for an enterococcus species according to the infectious disease note from [facility]. Due to the patient's mental status changes a computed tomography scan of his brain was completed which did not show any evidence of acute infarct or bleed. A computed tomography scan of his chest, abdomen and pelvis was also completed which showed some apparent perinephritic fat stranding without evidence of hydronephrosis, evidence of sigmoid diverticulosis without diverticulitis, cardiomegaly with bilateral pleural effusions and possible pulmonary fibrosis. The computed tomography scan of his cervical spine showed evidence of spondylosis of the cervical spine without evidence of fracture. Initial laboratory results on 01/17/2022 showed a WBC count of 10.3, hemoglobin 13.6, hematocrit 40.4, platelets 147, sodium 132, po tassium 4.3, chloride 99, CO2 21.3, BUN 24, creatinine 1.4, glucose 161, calcium 8.7, AST 32, ALT 66, troponin was slightly elevated at 96 and his following troponins were slightly higher at 107, BNP 1005, CRP 12.9, lactic acid 1.1, PT 11.5, and INR 1.12. A 12-lead EKG was completed which showed normal sinus rhythm with a first-degree AV block with a heart rate of 90 BPM. According to the patient's chart from [facility] the patient did have blood cultures positive for enterococcus faecalis and was subsequently started on ampicillin and Rocephin for antibiotic treatment. Due to the patient's history of aortic valve replacement and positive blood cultures a transthoracic 2-D echocardiogram was completed. The 2-D echocardiogram showed a bioprosthetic aortic valve to be present, normal prosthetic aortic valve gradient, no aortic valve regurgitation and no aortic valvular stenosis. It also showed mild mitral annular calcification with mild to moderate mitral valve regurgitation, no mitral valve stenosis, mild tricuspid valve regurgitation, trace pulmonic valve regurgitation, aortic root to be normal in size, no pericardial effusion and his left ventricular systolic function to be normal with a left ventricular ejection fraction of 55%. For further evaluation the patient underwent a transesophageal echocardiogram on 01/22/2022 which demonstrated his left ventricular systolic function to be normal with a left ventricular ejection fraction to be 55-60%, a bioprosthetic aortic valve to be present, no aortic valve regurgitation, a small aortic valve vegetation present measuring 0.53 cm, mitral annular calcification, moderate mitral valve regurgitation, mild to moderate tricuspid valve regurgitation, ascending aorta to be normal in size, the ascending aorta to be normal in caliber and no pericardial effusion. Subsequently, due to the findings of a vegetation present on his bioprosthetic aortic valve a consult was placed to Dr. Omi Molina from cardiothoracic surgery for further evaluation and treatment recommendations. The patient was seen in follow-up today 01/25/2022 at his bedside in the intensive care unit. Currently he is lying in bed, eating his breakfast, he is alert, oriented 3 and is in no acute distress. He reports he was having some p ain to his left lateral chest yesterday which is since resolved. Denies any complaints of shortness of breath and has been afebrile in the last 24 hours. He remains hemodynamically stable and is currently on no inotropic pressure support. Bedside telemetry is showing a junctional rhythm heart rate 71 BPM. Ampicillin and Rocephin remain in place for antibiotic coverage managed by infectious disease. Laboratory results this morning show a WBC count of 7.4, hemoglobin 11.3, hematocrit 33.3, platelets 194, sodium 135, potassium 4.0, CO2 26, BUN 14, creatinine 0.94, glucose 63 and calcium 8.0. A bedside FEV1 was completed yesterday 01/24/2022 with the predicted value of 38% and a base of 1. 13. A bedside carotid duplex was completed yesterday which showed slight elevated velocities in the internal carotid arteries bilaterally suggestive of a 50-70% stenosis. Oxygen saturation are 94% on room air and he is achieving 1500 mL on his incentive spirometry with encouragement. Objective - Vital Signs Vital signs: Vital Signs Temp 98.8 F 01/25/22 04:00 Pulse 64 01/25/22 07:00 Resp 20 01/25/22 07:00 BP 158/65 01/25/22 07:00 Pulse Ox 94 L 01/25/22 07:00 FiO2 Intake & Output 01/24/22 01/25/22 01/25/22 18:59 06:59 18:59 Intake Total 550 430 10 Output Total 800 520 0 Balance -250 -90 10 Weight 104 kg 106.6 kg Intake: IV 550 430 10 0.9NS 50 80 10 Ampicillin 2,000 mg In 300 Sodium Chloride 0.9% 100 ml @ 200 mls/hr IVPB Q4HR AGATA Rx#:[id number] Vancomycin 500 cefTRIAXone 2 gm In 50 Sodium Chloride 0.9% 50 ml @ 100 mls/hr IVPB Q12HR [facility]ATA Rx#:[id number] Output: Urine 800 520 0 Other: Voiding Method Urinal Urinal # Voids 1 - Exam CONSTITUTIONAL: Sitting up in bed in the intensive care unit, appears comfortable, cooperative, no apparent acute distress. HEENT: Neck is supple, no JVD, no lymphadenopathy. RESPIRATORY: Lungs sounds essentially clear throughout, diminished to his bilateral bases. Respirations are symmetrical and nonlabored. Currently on room air with oxygen saturations 94%. Able to achieve 1500 mL on his incentive spirometry. Strong cough. CARDIOVASCULAR: Regular rhythm and rate. S1 and S2 present, negative for S3, or gallop. Soft systolic murmur heard best at base. Palpable peripheral pulses bilaterally, trace edema to his bilateral lower extremities. No calf pain or tenderness noted. GASTROINTESTINAL: Abdomen soft, nontender, nondistended. Active bowel sounds present 4 quadrants. Tolerating diet. Passing flatus. No guarding or rigidity. GENITOURINARY: Continues to void. 300 mL of urine output in the last 8 hours. INTEGUMENTARY: Skin is warm and dry with no evidence of clubbing or cyanosis. MUSKULOSKELETAL: Able to move all extremities, strength equal bilaterally. PSYCHIATRIC: Alert and oriented to person place and time, appropriate affect, intact judgment and insight. - Allied health notes Allied health notes reviewed: nursing - Labs CBC & Chem 7: 01/25/22 06:24 01/25/22 06:24 Labs: Abnormal Lab Results - Last 24 Hours (Table) 01/24/22 01/24/22 01/24/22 Range/Units 12:13 14:10 15:19 RBC 3.76 L (4.30-5.90) m/uL Hgb 11.7 L (13.0-17.5) gm/dL Hct 35.4 L (39.0-53.0) % Neutrophils # 8.2 H (1.3-7.7) k/uL Lymphocytes # 0.9 L (1.0-4.8) k/uL Sodium (137-145) mmol/L Glucose (74-99) mg/dL POC Glucose (mg/dL) 163 H (70-110) mg/dL Hemoglobin A1c (0.0-6.0) % Calcium (8.4-10.2) mg/dL Total Protein (6.3-8.2) g/dL Albumin (3.5-5.0) g/dL HDL Cholesterol (40.00-60.00) mg/dL TSH (0.465-4.680) mIU/L Urine Glucose (UA) 4+ H (Negative) Ur Leukocyte Esterase Trace H (Negative) Urine Bacteria Rare H (None) /hpf 01/24/22 01/24/22 01/24/22 Range/Units 15:19 15:19 17:07 RBC (4.30-5.90) m/uL Hgb (13.0-17.5) gm/dL Hct (39.0-53.0) % Neutrophils # (1.3-7.7) k/uL Lymphocytes # (1.0-4.8) k/uL Sodium (137-145) mmol/L Glucose 160 H (74-99) mg/dL POC Glucose (mg/dL) 127 H (70-110) mg/dL Hemoglobin A1c 7.8 H (0.0-6.0) % Calcium 8.2 L (8.4-10.2) mg/dL Total Protein 5.4 L (6.3-8.2) g/dL Albumin 2.9 L (3.5-5.0) g/dL HDL Cholesterol 32.10 L (40.00-60.00) mg/dL TSH 0.295 L (0.465-4.680) mIU/L Urine Glucose (UA) (Negative) Ur Leukocyte Esterase (Negative) Urine Bacteria (None) /hpf 01/24/22 01/25/22 01/25/22 Range/Units 20:54 06:24 06:24 RBC 3.57 L (4.30-5.90) m/uL Hgb 11.3 L (13.0-17.5) gm/dL Hct 33.3 L (39.0-53.0) % Neutrophils # (1.3-7.7) k/uL Lymphocytes # (1.0-4.8) k/uL Sodium 135 L (137-145) mmol/L Glucose 63 L (74-99) mg/dL POC Glucose (mg/dL) 140 H (70-110) mg/dL Hemoglobin A1c (0.0-6.0) % Calcium 8.0 L (8.4-10.2) mg/dL Total Protein (6.3-8.2) g/dL Albumin (3.5-5.0) g/dL HDL Cholesterol (40.00-60.00) mg/dL TSH (0.465-4.680) mIU/L Urine Glucose (UA) (Negative) Ur Leukocyte Esterase (Negative) Urine Bacteria (None) /hpf 01/25/22 Range/Units 07:12 RBC (4.30-5.90) m/uL Hgb (13.0-17.5) gm/dL Hct (39.0-53.0) % Neutrophils # (1.3-7.7) k/uL Lymphocytes # (1.0-4.8) k/uL Sodium (137-145) mmol/L Glucose (74-99) mg/dL POC Glucose (mg/dL) 69 L (70-110) mg/dL Hemoglobin A1c (0.0-6.0) % Calcium (8.4-10.2) mg/dL Total Protein (6.3-8.2) g/dL Albumin (3.5-5.0) g/dL HDL Cholesterol (40.00-60.00) mg/dL TSH (0.465-4.680) mIU/L Urine Glucose (UA) (Negative) Ur Leukocyte Esterase (Negative) Urine Bacteria (None) /hpf Microbiology - Last 24 Hours (Table) 01/24/22 14:44 Nasal Screen MRSA/MSSA - Preliminary Nasal Swab - Imaging and Cardiology Carotid duplex study results reviewed. FEV1 results reviewed. Assessment and Plan Assessment: 1. Bacteremia with positive blood cultures showing enterococcus faecalis 2. Small aortic valve vegetation as evidence on transesophageal echocardiogram 3. Moderate mitral valve regurgitation on transesophageal echocardiogram 4. Possible urinary tract infection, history of UTI in the past with pseudomonas aeruginosa in January 2020 5. History of severe aortic valve stenosis, status post aortic valve replacement with a 23 mm Inspiris bioprosthetic aortic valve in November 2017 6. Cardiac arrhythmia, with telemetry showing junctional rhythm at this time heart rate in the 70s 7. Hypertension 8. Hyperlipidemia 9. History of coronary artery disease with a 30-40% stenosis to his mid right coronary artery in October 2017 10. Insulin-dependent diabetes mellitus type 2 11. Obesity with a BMI of 32.9 kg/m 12. Obstructive sleep apnea without CPAP use 13. COPD 14. History of asthma 15. Remote history of nicotine dependence quit smoking in 1992 16. Altered mental status, resolved 17. Enlarged prostate 18. History of gout 19. Slight elevated velocities in the internal carotid arteries bilaterally suggestive of 50-70% stenosis Plan: 1. Continue to monitor results of blood cultures sent yesterday 01/24/2022. 2. Cardiac rhythm management per cardiology recommendations. 3. Encourage use of his incentive spirometry 10 times every hour while awake. 4. Patient underwent a CT Panorex yesterday, dental clearance pending. 5. Continue ampicillin and Rocephin per infectious disease recommendations. 6. Bedside FEV1 showed a predicted value of 38%. Bronchodilator management per pulmonary critical care service recommendations. 7. Diabetes management and other comorbidities per primary care service recommendations. 8. GI and DVT prophylaxis. 9. We will continue to monitor and follow this patient to determine the best course of action based on his clinical course. Time with Patient: Greater than 30
[2022-01-25] MEDS ORDERED: MAGNESIUM HYDROXIDE 2,400 MG/10 ML CUP PO PRN (08:32)
[2022-01-25] MEDS ORDERED: FEBUXOSTAT 40 MG PO SCH (09:00)
--- NOTE | 2022-01-25 09:10 | US ---
EXAMINATION TYPE: US arterial LE single level DATE OF EXAM: 01/24/2022 6:10 PM CLINICAL HISTORY: Ankle Brachial Index (MARIANO) . Pre op cardiac surgery. Hx aortic valve replacement in 2018. Prior smoker. hypertension, hyperlipidemia, diabetes, CAD. Doppler Waveforms: Right: Multiphasic Left: Multiphasic Pressure Gradients: Not evident Ankle-Brachial Indices: Right: 1.26 Left: 1.16 Toe Brachial Indices: Right: 0.92 Left: 0.62 IMPRESSION: Normal ankle-brachial indices
--- NOTE | 2022-01-25 09:37 | XR ---
EXAMINATION TYPE: XR chest 1V portable DATE OF EXAM: 01/25/2022 COMPARISON: Chest x-ray 01/10/2022 HISTORY: Endocarditis TECHNIQUE: Single frontal view of the chest is obtained. FINDINGS: Patient is post median sternotomy and left atrial appendage clip placement. Cardiac medias tinal silhouette shows a stable appearance. Lung volumes are low. Interstitium mildly increased. No p neumothorax or pleural effusion. IMPRESSION: Postop changes similar to prior exam. Expiratory rotated exam. There may be some interst itial changes, follow-up as indicated
[2022-01-25] MEDS: allopurinoL 100 MG TAB PO SCH (09:45)
[2022-01-25] MEDS: MAGNESIUM OXIDE 400 MG TAB PO SCH (09:45)
[2022-01-25] MEDS: SENNOSIDES-DOCUSATE SODIUM 1 EACH TAB PO SCH (09:45)
[2022-01-25] MEDS: TAMSULOSIN 0.4 MG CAP.ER.24H PO SCH (09:45)
[2022-01-25] MEDS: LOSARTAN 50 MG TAB PO SCH (09:45)
[2022-01-25] MEDS: ASPIRIN 325 MG TAB PO SCH (09:45)
[2022-01-25] MEDS: MONTELUKAST 10 MG TAB PO SCH (09:45)
[2022-01-25] MEDS: CALCIUM CARBONATE 500 MG CHEWABLE PO SCH ×2 (09:45→21:16)
[2022-01-25] MEDS: HEPARIN SODIUM,PORCINE/PF 5,000 UNIT/0.5 ML SYRINGE SQ SCH ×2 (09:45→21:15)
[2022-01-25] MEDS: amLODIPine 5 MG TAB PO SCH ×2 (09:45→21:17)
[2022-01-25] MEDS: DOXAZOSIN 4 MG TAB PO SCH ×2 (09:46→21:15)
[2022-01-25] MEDS: FUROSEMIDE 40 MG TAB PO SCH (09:46)
[2022-01-25] MEDS: DAPAGLIFLOZIN PROPANEDIOL 10 MG TABLET PO SCH (09:46)
[2022-01-25] MEDS: FINASTERIDE 5 MG TAB PO SCH (09:46)
[2022-01-25] MEDS: MUPIROCIN 2% OINT 22 GM TUBE NASAL SCH ×2 (10:01→21:17)
[2022-01-25] MEDS: GLIMEPIRIDE 2 MG TAB PO SCH ×2 (10:01→21:15)
--- NOTE | 2022-01-25 10:16 | P.CRDCN ---
History of Present Illness Consult date: 01/25/22 History of present illness: This 76-year-old gentleman has a past medical history of severe aortic stenosis status post aortic valve replacement with a 23 mm Inspiris bioprosthetic aortic valve, remote history of non-ST elevated myocardial infarction in October 2017 with an RCA stenosis of 30-40% at that time, hypertension, hyperlipidemia, insulin- dependent diabetes, sleep apnea without the use of a home CPAP, COPD, asthma, gout, obesity, benign prostatic hypertrophy, recent removal of melanoma to his back and a remote history of nicotine dependence in which he quit smoking in the early . Patient was transferred here from [facility] for vegetation of the aortic valve. Patient follows with Dr. Cárdenas in the office. Initially patient presented to the emergency department at [facility] on 01/17/2022 due to mental status changes. He reports that he had been having some burning sensation with urinating his urinalysis done at [facility] the initial urinalysis was negative, however his subsequent show urinalysis showed positive for an enterococcus species. His 12-lead EKG showed normal sinus rhythm with a first-degree AV block with a heart rate of 90 BPM. He also underwent a CT of the brain which did not show any evidence of acute infarct or bleed. A CT of the chest abdomen and pelvis showed some apparent perinephritic fat stranding without evidence of hydronephrosis, evidence of sigmoid diverticulosis without diverticulitis, cardiomegaly with bilateral pleural effusions and possible pulmonary fibrosis. A CT of the cervical spine showed evidence of spondylosis of the cervical spine without evidence of fracture. Initial laboratory from [facility] on 01/17/2022 showed a WBC 10.3, hemoglobin 13.6, platelets 147, sodium 132, potassium 4.3, BUN 24, creatinine 1.4, glucose 161, calcium 8.7, AST 32, ALT 66, troponin was slightly elevated at 96 and his following troponins were slightly higher at 107, BNP 1005, CRP 12.9, lactic acid 1.1, PT 11.5, and INR 1.12. Blood cultures positive for enterococcus faecalis he has been started on IV antibiotics and infectious disease is on the case. Subsequently blood cultures have been taken here. Due to the patient's positive blood cultures he underwent a 2-D echocardiogram showed a normal left ventricular systolic function, a bioprosthetic aortic valve to be present, normal prosthetic aortic valve gradient, without aortic valve regurgitation or stenosis, mild mitral annular calcification with mild to moderate mitral valve regurgitation, mild tricuspid valve regurgitation, no pericardial effusion. He then underwent a REESE on 01/22/2022 which revealed a normal LV function with an ejection fraction of 55-60%, a bioprosthetic aortic valve to be present, without aortic valve regurgitation, a small aortic valve vegetation present measuring 0.53 cm, moderate mitral valve regurgitation, mild to moderate tricuspid valve regurgitation, and no pericardial effusion. Due to the findings of a vegetation present on his bioprosthetic aortic valve cardiothoracic surgery was consulted. He had a carotid duplex yesterday which showed moderate stenosis bilaterally. Patient is seen today resting comfortably in bed in the intensive care unit. He is sitting in bed eating his breakfast in no acute distress. He denies chest pain or increased shortness of breath. Patient states yesterday he had some left lateral chest pain but it has since resolved. He is showing second-degree and junctional rhythm on telemetry. Patient will undergo a temporary pacemaker later today with Dr. Cárdenas, while he continues preoperative testing to determine if he is a candidate for surgery. He continues on IV antibiotics which is managed by infectious disease. Laboratory results reviewed WBC 7.4, hemoglobin 11.3, platelets 194, sodium 135, potassium 4.0, BUN 14, creatinine 0.94. Review of Systems REVIEW OF SYSTEMS At the time of my exam: CONSTITUTIONAL: Denies fever or chills. EYES: Negative for vision changes ENT: Negative for hearing loss CARDIOVASCULAR: Denies chest pain, shortness of breath, diaphoresis, orthopnea, PND or palpitations. VASCULAR: Denies edema RESPIRATORY: Denies cough. GASTROINTESTINAL: Denies abdominal pain, diarrhea, constipation, nausea or vomiting. MUSCULOSKELETAL: Denies myalgias. NEUROLOGIC: Denies numbness, tingling, headache or weakness. ENDOCRINE: Denies fatigue, weight change, polydipsia or polyurina. GENITOURINARY: Denies burning, hematuria or urgency with micturation. HEMATOLOGIC: Denies history of anemia or bleeding. DERMATOLOGY: Denies rash or skin sores PSYCH: Negative for depression or hallucinations. Past Medical History Past Medical History: Asthma, Cancer, COPD, Diabetes Mellitus, Hyperlipidemia, Hypertension, Myocardial Infarction (non Q-wave), Osteoarthritis (OA), Prostate Disorder, Sleep Apnea/CPAP/BIPAP Additional Past Medical History / Comment(s): AORTIC VALVE STENOSIS, HX SKIN CA melanoma removed from back November 2021 History of Any Multi-Drug Resistant Organisms: None Reported MDRO Source:: left leg 1961 Past Surgical History: Cardiac Valve Replacement, Heart Catheterization Additional Past Surgical History / Comment(s): left leg infection removed, Benign right breast tumor 1961; Aortic valve 23 mm Inspiris bioprosthetic valve [place] [address] Lopez Past Anesthesia/Blood Transfusion Reactions: No Reported Reaction Past Psychological History: No Psychological Hx Reported Smoking Status: Former smoker Past Alcohol Use History: Occasional Additional Past Alcohol Use History / Comment(s): Quit 1992, smoked 1ppd from age 16, Past Drug Use History: None Reported - Past Family History Mother Family Medical History: Cancer, Congestive Heart Failure (CHF) Additional Family Medical History / Comment(s): renal, melanoma Father Family Medical History: Cancer Additional Family Medical History / Comment(s): melanoma Sister(s) Family Medical History: AFIB Brother(s) Family Medical History: No Reported History Daughter(s) Family Medical History: No Reported History Son(s) Family Medical History: No Reported History Medications and Allergies Home Medications Medication Instructions Recorded Confirmed Type Doxazosin Mesylate [Cardura] 8 mg PO BID 10/03/16 01/24/22 History Finasteride [Proscar] 5 mg PO DAILY 10/03/16 01/24/22 History Glimepiride [Amaryl] 4 mg PO BID 10/03/16 01/24/22 History Montelukast [Singulair] 10 mg PO DAILY 10/03/16 01/24/22 History Atorvastatin [Lipitor] 40 mg PO HS #30 tab 11/20/17 01/24/22 Rx Aspirin 325 mg PO DAILY #30 tab 12/08/17 01/24/22 Rx Albuterol Sulfate [Albuterol 1 puff PO RT-Q4H PRN 01/24/22 01/24/22 History Sulfate Hfa] Baclofen 10 mg PO BID PRN 01/24/22 01/24/22 History Calcium Carbonate [Calcium] 600 mg PO BID 01/24/22 01/24/22 History Clotrimazole/Betameth Cream 1 applic TOPICAL BID 01/24/22 01/24/22 History [Lotrisone] Dapagliflozin Propanediol [Farxiga] 10 mg PO DAILY 01/24/22 01/24/22 History Febuxostat [Uloric] 40 mg PO DAILY 01/24/22 01/24/22 History Fluticasone Propion/Salmeterol 2 puff INHALATION RT-BID 01/24/22 01/24/22 History [Advair Hfa 115-21 Mcg Inhaler] Furosemide [Lasix] 40 mg PO DAILY 01/24/22 01/24/22 History Insulin Glargine,Hum.rec.anlog 24 units SQ HS 01/24/22 01/24/22 History [Toujeo Solostar] Losartan Potassium [Cozaar] 100 mg PO DAILY 01/24/22 01/24/22 History Magnesium 250 mg PO DAILY 01/24/22 01/24/22 History Pioglitazone [Actos] 30 mg PO DAILY 01/24/22 01/24/22 History Tamsulosin HCl [Flomax] 0.4 mg PO DAILY 01/24/22 01/24/22 History allopurinoL 100 mg PO DAILY 01/24/22 01/24/22 History amLODIPine [Norvasc] 5 mg PO BID 01/24/22 01/24/22 History hydrALAZINE HCL [Apresoline] 100 mg PO TID-W/MEALS 01/24/22 01/24/22 History Allergies Allergy/AdvReac Type Severity Reaction Status Date / Time No Known Allergies Allergy Verified 01/24/22 14:07 Physical Exam Vitals: Vital Signs Temp Pulse Resp BP Pulse Ox 01/25/22 07:00 64 20 158/65 94 L 01/25/22 06:00 77 18 155/79 94 L 01/25/22 05:00 56 L 18 126/62 94 L 01/25/22 04:00 98.8 F 53 L 18 152/76 94 L 01/25/22 03:00 44 L 17 121/75 94 L 01/25/22 02:00 51 L 18 130/81 95 01/25/22 01:00 48 L 15 130/81 94 L 01/25/22 00:00 98.7 F 43 L 14 125/66 93 L 01/24/22 23:00 51 L 16 141/68 95 01/24/22 22:00 60 14 151/76 95 01/24/22 21:00 53 L 12 145/80 93 L 01/24/22 20:00 98.8 F 53 L 11 L 158/76 93 L 01/24/22 19:03 58 L 26 H 158/76 94 L 01/24/22 19:00 66 01/24/22 18:45 60 01/24/22 18:30 63 27 H 174/78 92 L 01/24/22 18:00 67 18 174/78 91 L 01/24/22 17:30 58 L 28 H 156/69 92 L 01/24/22 17:00 63 24 152/73 90 L 01/24/22 16:30 67 22 92 L 01/24/22 16:00 52 L 24 152/73 94 L 01/24/22 15:30 55 L 22 136/69 93 L 01/24/22 15:00 48 L 15 127/63 94 L 01/24/22 14:30 53 L 22 139/89 93 L 01/24/22 14:20 58 L 25 H 156/135 94 L 01/24/22 14:00 55 L 28 H 147/69 94 L 01/24/22 13:40 56 L 19 143/86 94 L 01/24/22 13:20 54 L 12 126/63 94 L 01/24/22 13:10 40 L 14 126/63 95 01/24/22 13:00 57 L 22 95 01/24/22 12:50 53 L 20 96 01/24/22 12:40 48 L 22 148/67 95 01/24/22 12:30 46 L 24 95 01/24/22 12:20 98.4 F 51 L 24 137/60 96 Intake and Output 01/24/22 01/25/22 01/25/22 22:59 06:59 14:59 Intake Total 210 260 10 Output Total 720 300 0 Balance -510 -40 10 Intake: IV 210 260 10 0.9NS 60 60 10 Ampicillin 2,000 mg In 100 200 Sodium Chloride 0.9% 100 ml @ 200 mls/hr IVPB Q4HR [facility] Rx#:[id number] cefTRIAXone 2 gm In 50 Sodium Chloride 0.9% 50 ml @ 100 mls/hr IVPB Q12HR [facility] Rx#:[id number] Output: Urine 720 300 0 Other: Voiding Method Urinal Urinal Weight 106.6 kg General: The patient is awake and alert, in no distress, and does not appear acutely ill. Skin: Skin is warm and dry and no rashes or lesions are noted. Eye: Pupils are equal, round and reactive to light, extra-ocular movements are intact; there is normal conjunctiva bilaterally. Ears, nose, mouth and throat: There are moist mucous membranes and no oral lesions. Neck: The neck is supple, there is no tenderness or JVD. Cardiovascular: There is regular rate and rhythm. No rub or gallop is appreciated. Soft systolic murmur at the base Respiratory: Lungs are clear to auscultation, respirations are non-labored, breath sounds are equal. Gastrointestinal: Soft, non-distended, non-tender abdomen without masses or organomegaly noted. There is no rebound or guarding present. Bowel sounds are unremarkable. Back: There is no tenderness to palpation in the midline. There is no obvious deformity. Musculoskeletal: Normal ROM, no tenderness, There is no pedal edema. There is no calf tenderness or swelling. Extremities: no bilateral edema Vascular: Femoral pulse is normal. Posterior tibial pulses are normal .Dorsalis pedis is palpable. Neurological: CN II-XII intact. There are no obvious motor or sensory deficits. Speech is normal. Psychiatric: Cooperative, appropriate mood & affect, normal judgment Results 01/25/22 06:24 01/25/22 06:24 Cardiac Enzymes 01/24/22 Range/Units 15:19 AST 27 (17-59) U/L Coagulation 01/24/22 Range/Units 15:19 PT 11.9 (9.0-12.0) sec APTT 26.5 (22.0-30.0) sec Lipids 01/24/22 Range/Units 15:19 Triglycerides 74.10 (0.00-149.00) mg/dL Cholesterol 86.00 (0.00-200.00) mg/dL HDL Cholesterol 32.10 L (40.00-60.00) mg/dL Cholesterol/HDL Ratio 2.67 Ratio CBC 01/24/22 01/25/22 Range/Units 15:19 06:24 WBC 9.7 7.4 (3.8-10.6) k/uL RBC 3.76 L 3.57 L (4.30-5.90) m/uL Hgb 11.7 L 11.3 L (13.0-17.5) gm/dL Hct 35.4 L 33.3 L (39.0-53.0) % Plt Count 205 194 (150-450) k/uL Comprehensive Metabolic Panel 01/24/22 01/25/22 Range/Units 15:19 06:24 Sodium 137 135 L (137-145) mmol/L Potassium 4.1 4.0 (3.5-5.1) mmol/L Chloride 104 104 (98-107) mmol/L Carbon Dioxide 24 26 (22-30) mmol/L BUN 14 14 (9-20) mg/dL Creatinine 0.98 0.94 (0.66-1.25) mg/dL Glucose 160 H 63 L (74-99) mg/dL Calcium 8.2 L 8.0 L (8.4-10.2) mg/dL AST 27 (17-59) U/L ALT 41 (4-49) U/L Alkaline Phosphatase 65 (38-126) U/L Total Protein 5.4 L (6.3-8.2) g/dL Albumin 2.9 L (3.5-5.0) g/dL Current Medications Generic Name Dose Route Start Last Admin Trade Name Freq PRN Reason Stop Dose Admin Acetaminophen 650 mg 01/24/22 18:38 Acetaminophen Tab 325 Mg Tab PO Q6HR PRN Fever and/ or Mild Pain Albuterol Sulfate 2.5 mg 01/24/22 14:22 01/24/22 18:44 Albuterol Nebulized 2.5 Mg/3 Ml INHALATION 2.5 mg RT-Q4H PRN Administration Shortness Of Breath Allopurinol 100 mg 01/25/22 09:00 Allopurinol 100 Mg Tab PO DAILY [facility] Amlodipine Besylate 5 mg 01/24/22 21:00 01/24/22 20:57 Amlodipine 5 Mg Tab PO 5 mg BID [facility] Administration Aspirin 325 mg 01/25/22 09:00 Aspirin 325 Mg Tab PO DAILY [facility] Atorvastatin Calcium 40 mg 01/24/22 21:00 01/24/22 20:57 Atorvastatin 40 Mg Tab PO 40 mg HS [facility] Administration Baclofen 10 mg 01/24/22 14:22 Baclofen 10 Mg Tab PO BID PRN Pain Budesonide/Formoterol Fumarate 2 puff 01/24/22 20:00 01/25/22 07:53 Symbicort 160-4.5 Mcg Inhaler INHALATION 2 puff RT-BID [facility] Administration Calcium Carbonate/Glycine 500 mg 01/24/22 21:00 01/24/22 20:57 Calcium Carbonate 500 Mg Chewable PO 500 mg BID [facility] Administration Dapagliflozin 10 mg 01/25/22 09:00 Dapagliflozin Propanediol 10 Mg Tablet PO DAILY [facility] Dextrose/Water 25 ml 01/24/22 15:10 Dextrose 50% Syringe 50 Ml IVP PER PROTOCOL PRN Hypoglycemia Protocol Dextrose/Water 50 ml 01/24/22 15:10 Dextrose 50% Syringe 50 Ml IVP PER PROTOCOL PRN Hypoglycemia Protocol Doxazosin Mesylate 8 mg 01/24/22 21:00 01/24/22 21:08 Doxazosin 4 Mg Tab PO 8 mg BID [facility] Administration Finasteride 5 mg 01/25/22 09:00 Finasteride 5 Mg Tab PO DAILY [facility] Furosemide 40 mg 01/25/22 09:00 Furosemide 40 Mg Tab PO DAILY [facility] Glimepiride 2 mg 01/25/22 09:00 Glimepiride 2 Mg Tab PO BID [facility] Heparin Sodium (Porcine) 5,000 unit 01/24/22 21:00 01/24/22 20:58 Heparin Sodium,Porcine/Pf 5,000 Unit/0.5 Ml Syringe SQ 5,000 unit Q12HR [facility] Administration Hydralazine HCl 100 mg 01/24/22 17:30 01/25/22 07:13 Hydralazine Hcl 50 Mg Tab PO 100 mg TID-W/MEALS [facility] Administration Ampicillin Sodium 2,000 mg/ 100 mls @ 200 mls/hr 01/24/22 16:00 01/25/22 04:07 Sodium Chloride IVPB 200 mls/hr Q4HR [facility] Administration Protocol Ceftriaxone Sodium 2 gm/ 50 mls @ 100 mls/hr 01/24/22 21:00 01/24/22 20:57 Sodium Chloride IVPB 100 mls/hr Q12HR [facility] Administration Protocol Insulin Aspart 0 unit 01/24/22 17:30 01/25/22 07:14 Insulin Aspart (Novolog) 100 Unit/Ml Vial SQ Not Given ACHS [facility] Protocol Insulin Detemir 20 unit 01/25/22 21:00 Insulin Detemir (Levemir) 100 Unit/Ml Syr SQ HS [facility] Losartan Potassium 100 mg 01/25/22 09:00 Losartan 50 Mg Tab PO DAILY [facility] Magnesium Hydroxide 2,400 mg 01/25/22 08:32 Magnesium Hydroxide 2,400 Mg/10 Ml Cup PO DAILY PRN Constipation Magnesium Oxide 400 mg 01/25/22 09:00 Magnesium Oxide 400 Mg Tab PO DAILY [facility] Montelukast Sodium 10 mg 01/25/22 09:00 Montelukast 10 Mg Tab PO DAILY [facility] Mupirocin 1 applic 01/24/22 21:00 01/24/22 21:08 Mupirocin 2% Oint 22 Gm Tube NASAL 01/29/22 21:01 1 applic BID [facility] Administration Pantoprazole Sodium 40 mg 01/25/22 07:30 01/25/22 07:13 Pantoprazole 40 Mg Tablet PO 40 mg [id number]-[id number] [facility] Administration Senna/Docusate Sodium 2 each 01/25/22 09:00 Sennosides-Docusate Sodium 1 Each Tab PO DAILY [facility] Tamsulosin HCl 0.4 mg 01/25/22 09:00 Tamsulosin 0.4 Mg Cap.Er.24h PO DAILY [facility] Intake and Output 01/24/22 01/25/22 01/25/22 22:59 06:59 14:59 Intake Total 210 260 10 Output Total 720 300 0 Balance -510 -40 10 Intake: IV 210 260 10 0.9NS 60 60 10 Ampicillin 2,000 mg In 100 200 Sodium Chloride 0.9% 100 ml @ 200 mls/hr IVPB Q4HR [facility] Rx#:[id number] cefTRIAXone 2 gm In 50 Sodium Chloride 0.9% 50 ml @ 100 mls/hr IVPB Q12HR [facility] Rx#:[id number] Output: Urine 720 300 0 Other: Voiding Method Urinal Urinal Weight 106.6 kg 01/25/22 06:24 01/25/22 06:24 Assessment and Plan Assessment: Small aortic valve vegetation as evidence on transesophageal echocardiogram History of severe aortic valve stenosis, status post aortic valve replacement with a 23 mm Inspiris bioprosthetic aortic valve in November 2017 Moderate mitral valve regurgitation Bacteremia with positive blood cultures showing enterococcus faecalis Cardiac arrhythmia, telemetry showing junctional rhythm Altered mental status, resolved, Plan: Patient will undergo temporary pacemaker Continue with all current cardiac medications Continue telemetry monitoring Awaiting further recommendations from cardiothoracic surgery Further recommendations based on clinical course The above impression and plan of care have been discussed and directed by the signing physician. Mirna Whiteside, nurse practitioner, acting as scribe for signing physician.
--- NOTE | 2022-01-25 10:32 | P.PN ---
Subjective Progress Note Date: 01/25/22 HISTORY OF PRESENT ILLNESS This is a 76-year-old male patient with past medical history of hypertension with hypertensive cardiovascular disease, hyperlipidemia, diabetes mellitus type 2 with diabetic polyneuropathy, enlarged prostate, history of aortic valve disease status post aortic valve replacement with a 23 mm valve on 12/04/2017, prior to that, left heart catheterization revealed 30-40% stenosis in the RCA in 2018, history of melanoma status post resection 12/07/2021, from the back. Patient initially presented to [facility] with mental status changes with significant encephalopathy. CAT scan of the brain did not show any acute infarct or bleed. Patient did have leukocytosis and low-grade fever. He is status post IV fluid resuscitation, he was started on IV antibiotics initially in the form of Levaquin and subsequently changed to ampicillin and cef triaxone by Dr. Cunningham. EKG did not show any evidence of acute changes. CAT scan of the chest abdomen and pelvis showed some perinephric stranding without evidence of hydronephrosis, there was evidence of diverticulosis without diverticulitis. CAT scan of the chest showed evidence of cardiomegaly with bilateral pleural effusion and possible pulmonary fibrosis. CAT scan of the cervical spine did show evidence of spondylosis of cervical spine without evidence of fracture. CAT scan of the brain showed brain atrophy without evidence of acute infarct or bleed, small vessel disease present. Patient was initially admitted to [facility] where he was followed by infectious disease as well as cardiology. He underwent a REESE on 01/22 revealed left ventricular systolic function normal at 55-60%, small aortic valve vegetation was present measuring 0.53 cm. Patient has bioprosthetic aortic valve. Moderate MR, [id number] tricuspid regurgitation, no pericardial effusion. Patients blood cultures were positive for enterococcus species. Patient was in a sinus rhythm with a first-degree AV block but subsequently developed a high-grade AV block on 01/24 with progressive worsening of the AV block and PVCs. Patient is complaining of left lower rib cage chest discomfort. No palpitations or dizziness. Patient was then transferred to [facility] to be evaluated by cardiothoracic surgery team. Patient is seen today in the intensive care unit, consults added for cardiology, engineering test mechanic, cardiothoracic surgery. 01/25: Patient is seen today in the ICU. He states he slept well last night. He states he is better able to take a deep breath with less pain on his left chest wall. He is able to reach 1500 MLS on incentive spirometry. He is complaining of tingling in bilateral feet. Has not had a bowel movement but feels that he needs to today. Senokot scheduled added. Blood sugar was low this morning and glimepiride decreased to 2 mg twice daily and Levemir decreased to 20 units. Patient has an external catheter in place draining clear emily urine. He has been evaluated by cardiology, cardiothoracic surgery and engineering test mechanic. Cardiology is planning for temporary pacemaker. C plan to continue close monitoring in the intensive care unit, monitor results of the blood cultures.hest x-ray reveals postoperative changes similar to prior exam. There may be some interstitial changes. Carotid ultrasound reveals slight elevated velocity in the internal carotid arteries bilaterally suggestive of 50-70 percent stenosis. There is antegrade flow in the vertebral arteries. Panorex CAT scan completed without any significant abnormalities. Arterial ultrasound bilateral lower extremities revealed normal ankle brachial indices. REVIEW OF SYSTEMS Constitutional: No fever, no chills, no night sweats. No weight change. No weakness, reports fatigue no lethargy. No daytime sleepiness. EENT: No headache. No blurred vision or double vision, no loss of vision. No loss of Hearing, no ringing in the ears, no dizziness. No nasal drainage or congestion. No epistaxis. No sore throat. Lungs: No shortness of breath, cough, no sputum production. No wheezing. Cardiovascular: Reports left sided rib chest pain-improved, no lower extremity edema. No palpitations. No paroxysmal nocturnal dyspnea. No orthopnea. No lightheadedness or dizziness. No syncopal episodes. Abdominal: No abdominal pain. No nausea, vomiting. No diarrhea. No constipation. No bloody or tarry stools. No loss of appetite. Genitourinary: No dysuria, increased frequency, urgency. No urinary retention. Musculoskeletal: No myalgias. No muscle weakness, no gait dysfunction, no frequent falls. No back pain. No neck pain. Integumentary: No wounds, no lesions. No rash or pruritus. No unusual bruising. No change in hair or nails. Neurologic: No aphasia. No facial droop. No change in mentation. No head injury. No headache. No paralysis. No paresthesia. Psychiatric: No depression. No anxiety. No mood swings. Endocrine: No abnormal blood sugars. No weight change. No excessive sweating or thirst. No cold intolerance. PHYSICAL EXAMINATION Gen: This is a 76-year-old male. He is resting in ICU bed and appears to be in no acute distress. HEENT: Head is atraumatic, normocephalic. Pupils equal, round. Sclerae is anicteric. NECK: Supple. No JVD. No lymphadenopathy. No thyromegaly. LUNGS: Clear to auscultation. No wheezes or rhonchi. No intercostal retractions. HEART: First heart sound is depressed, second heart sound is normal, aortic valve click, systolic ejection murmur 2/6 at the left sternal border.. ABDOMEN: Soft. Bowel sounds are present. No masses. No tenderness. EXTREMITIES: No pedal edema. No calf tenderness. Dorsalis pedis +2 bilaterally. NEUROLOGICAL: Patient is awake, alert and oriented x3. Cranial nerves 2 through 12 are grossly intact. Muscle power 4 out of 5 upper and lower extremities bilaterally. ASSESSMENT AND PLAN 1. 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 Patients mental status is back to baseline. Patient admitted into the intensive care unit, consult in place with engineering test mechanic, infectious disease, cardiothoracic surgery. Continue patient on ampicillin 2 g IV piggyback every 4 hours, ceftriaxone 2 g IV piggyback every 12 hours. Monitor for blood culture results. 2. High-grade AV block. Patient was transferred to [facility], continue management in intensive care unit, cardiology consult. 3. Mild elevation in troponin secondary to sepsis, stable. 4. Hypertension with hypertensive cardiovascular disease. Continue patient on losartan 100 mg daily, hydralazine 100 mg 3 times daily, amlodipine 5 mg twice daily, Cardura 8 mg twice daily, Lasix 40 mg daily. 5. Hyperlipidemia. Continue atorvastatin 40 mg at bedtime. 6. Diabetes mellitus type 2, uncontrolled with hypoglycemia. Continue patient on Ledecreased to 20 units at bedtime, NovoLog scale before meals and at bedtime, glimepiride decreased to 2 mg twice daily, Farxiga 10 mg daily. 7. Benign prostatic hypertrophy. Continue Flomax or 0.4 mg daily, continue finasteride 5 mg daily 8. 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 Continue patient on Symbicort 160- 4.5 g 2 puffs twice daily, albuterol nebulizer every 4 hours as needed for shortness of breath. 9. ALLERGIC rhinitis. Continue Singulair 10 mg at bedtime. 10. Chronic gout. Continue allopurinol 100 mg daily. 11. DVT prophylaxis. Heparin subcu every 12 hours. 12. GI prophylaxis. Protonix 40 mg daily. CODE STATUS: Full code. DISCHARGE PLAN To be determined. Impression and plan of care have been directed as dictated by the signing physician. Maria G Paez nurse practitioner acting as scribe for signing ph ysician. Objective - Vital Signs Vital signs: Vital Signs Temp 98.8 F 01/25/22 04:00 Pulse 64 01/25/22 07:00 Resp 20 01/25/22 07:00 BP 158/65 01/25/22 07:00 Pulse Ox 94 L 01/25/22 07:00 FiO2 Intake & Output 01/24/22 01/25/22 01/25/22 18:59 06:59 18:59 Intake Total 550 430 10 Output Total 800 520 0 Balance -250 -90 10 Weight 104 kg 106.6 kg Intake: IV 550 430 10 0.9NS 50 80 10 Ampicillin 2,000 mg In 300 Sodium Chloride 0.9% 100 ml @ 200 mls/hr IVPB Q4HR [facility]ATA Rx#:[id number] Vancomycin 500 cefTRIAXone 2 gm In 50 Sodium Chloride 0.9% 50 ml @ 100 mls/hr IVPB Q12HR [facility]ATA Rx#:[id number] Output: Urine 800 520 0 Other: Voiding Method Urinal Urinal # Voids 1 - Labs CBC & Chem 7: 01/25/22 06:24 01/25/22 06:24 Labs: Abnormal Lab Results - Last 24 Hours (Table) 01/24/22 01/24/22 01/24/22 Range/Units 12:13 14:10 15:19 RBC 3.76 L (4.30-5.90) m/uL Hgb 11.7 L (13.0-17.5) gm/dL Hct 35.4 L (39.0-53.0) % Neutrophils # 8.2 H (1.3-7.7) k/uL Lymphocytes # 0.9 L (1.0-4.8) k/uL Sodium (137-145) mmol/L Glucose (74-99) mg/dL POC Glucose (mg/dL) 163 H (70-110) mg/dL Hemoglobin A1c (0.0-6.0) % Calcium (8.4-10.2) mg/dL Total Protein (6.3-8.2) g/dL Albumin (3.5-5.0) g/dL HDL Cholesterol (40.00-60.00) mg/dL TSH (0.465-4.680) mIU/L Urine Glucose (UA) 4+ H (Negative) Ur Leukocyte Esterase Trace H (Negative) Urine Bacteria Rare H (None) /hpf 01/24/22 01/24/22 01/24/22 Range/Units 15:19 15:19 17:07 RBC (4.30-5.90) m/uL Hgb (13.0-17.5) gm/dL Hct (39.0-53.0) % Neutrophils # (1.3-7.7) k/uL Lymphocytes # (1.0-4.8) k/uL Sodium (137-145) mmol/L Glucose 160 H (74-99) mg/dL POC Glucose (mg/dL) 127 H (70-110) mg/dL Hemoglobin A1c 7.8 H (0.0-6.0) % Calcium 8.2 L (8.4-10.2) mg/dL Total Protein 5.4 L (6.3-8.2) g/dL Albumin 2.9 L (3.5-5.0) g/dL HDL Cholesterol 32.10 L (40.00-60.00) mg/dL TSH 0.295 L (0.465-4.680) mIU/L Urine Glucose (UA) (Negative) Ur Leukocyte Esterase (Negative) Urine Bacteria (None) /hpf 01/24/22 01/25/22 01/25/22 Range/Units 20:54 06:24 06:24 RBC 3.57 L (4.30-5.90) m/uL Hgb 11.3 L (13.0-17.5) gm/dL Hct 33.3 L (39.0-53.0) % Neutrophils # (1.3-7.7) k/uL Lymphocytes # (1.0-4.8) k/uL Sodium 135 L (137-145) mmol/L Glucose 63 L (74-99) mg/dL POC Glucose (mg/dL) 140 H (70-110) mg/dL Hemoglobin A1c (0.0-6.0) % Calcium 8.0 L (8.4-10.2) mg/dL Total Protein (6.3-8.2) g/dL Albumin (3.5-5.0) g/dL HDL Cholesterol (40.00-60.00) mg/dL TSH (0.465-4.680) mIU/L Urine Glucose (UA) (Negative) Ur Leukocyte Esterase (Negative) Urine Bacteria (None) /hpf 01/25/22 Range/Units 07:12 RBC (4.30-5.90) m/uL Hgb (13.0-17.5) gm/dL Hct (39.0-53.0) % Neutrophils # (1.3-7.7) k/uL Lymphocytes # (1.0-4.8) k/uL Sodium (137-145) mmol/L Glucose (74-99) mg/dL POC Glucose (mg/dL) 69 L (70-110) mg/dL Hemoglobin A1c (0.0-6.0) % Calcium (8.4-10.2) mg/dL Total Protein (6.3-8.2) g/dL Albumin (3.5-5.0) g/dL HDL Cholesterol (40.00-60.00) mg/dL TSH (0.465-4.680) mIU/L Urine Glucose (UA) (Negative) Ur Leukocyte Esterase (Negative) Urine Bacteria (None) /hpf Microbiology - Last 24 Hours (Table) 01/24/22 14:44 Nasal Screen MRSA/MSSA - Preliminary Nasal Swab
--- NOTE | 2022-01-25 12:26 | P.PN ---
Subjective Progress Note Date: 01/25/22 Principal diagnosis: Acute infectious endocarditis This is a 76-year-old white male with history of multiple medical problems including hypertension, diabetes with diabetic polyneuropathy, dyslipidemia, history of COPD and he normally sees Dr. Ferreira for his COPD. Patient is also known to have history of obstructive sleep apnea syndrome, and melanoma resected from the back previously. Patient was admitted to [facility] back on 01/20/22, he was basically admitted with mental status change, or, and tachycardia. Patient had a previous history of aortic valve replacement in 2018, and patient was noted to have positive blood cultures for enterococcus faecalis. Continued to have positive blood cultures, he was seen by cardiology, and on 01/22, the patient underwent REESE which clearly confirmed vegetations on the aortic valve. It was reported as a small aortic valve vegetation present on a bioprosthetic aortic valve. His REESE also showed moderate mitral regurgitation and moderate tricuspid regurgitation. Patient was seen by infectious disease, started on broad-spectrum antibiotics, and no major arrhythmias noted until today. On telemetry monitoring, the patient was noted to have high grade AV block's with some bradycardia. He was also noted to have progression of his AV block's, and PVCs consistent with extension of the infection into the septal myocardium. Hence arrangements were made to transfer the patient to [facility] to be seen by the cardiothoracic surgical team. In the meantime the patient has been on Rocephin and ampicillin and vancomycin. Again infectious disease service is addressing the antibiotics accordingly. I saw the patient upon arrival to the ICU, he seems to be fairly comfortable, not in any distress, and hemodynamically stable. Patient is noted to have intermittently high-grade AV blocks, and cardiology will be evaluating the patient while in the ICU shortly. Cardiac consultation is pending. Labs were reviewed WBC count is 9.7 hemoglobin is 11.7 a left was are normal renal profile is normal, urinalysis is unremarkable. Patient was reevaluated today on 01/25/22 patient remains in the ICU, remains on broad-spectrum antibiotics, he is hemodynamically stable, not in any form of distress, not requiring any pressors or any inotropes. Remains on ampicillin and Rocephin as recommended by infectious disease for his Enterococcus faecalis endocarditis. His labs today are basically unremarkable. Patient is being considered for surgical intervention by cardiothoracic surgery. Labs today were basically unremarkable including relatively normal CBC and normal basic metabolic profile Objective - Vital Signs Vital signs: Vital Signs Temp 98.2 F 01/25/22 09:00 Pulse 67 01/25/22 10:00 Resp 19 01/25/22 10:00 BP 178/77 01/25/22 10:00 Pulse Ox 95 01/25/22 10:00 FiO2 Intake & Output 01/24/22 01/25/22 01/25/22 18:59 06:59 18:59 Intake Total 550 430 540 Output Total 800 520 700 Balance -250 -90 -160 Weight 104 kg 106.6 kg Intake: IV 550 430 180 0.9NS 50 80 30 Ampicillin 2,000 mg In 300 100 Sodium Chloride 0.9% 100 ml @ 200 mls/hr IVPB Q4HR [facility] Rx#:[id number] Vancomycin 500 cefTRIAXone 2 gm In 50 50 Sodium Chloride 0.9% 50 ml @ 100 mls/hr IVPB Q12HR [facility] Rx#:[id number] Oral 360 Output: Urine 800 520 700 Other: Voiding Method Urinal Urinal # Voids 1 - Exam Physical Exam: Revealed a 76-year-old white male in no distress, on room air. Head: Atraumatic, normocephalic. HEENT:[Neck is supple.] [No neck masses.] [No thyromegaly.] [No JVD.] Chest: [Clear throughout, no crackles, no rhonchi, no wheezes.] Cardiac Exam: Distant S1 and S2, positive aortic valve click, and systolic ejection murmur best heard over the aortic area Abdomen: [Obese, Soft, nontender, no megaly, no rebound, no guarding, normal bowel sounds.] Extremities: [No clubbing, no edema, no cyanosis.] Good pulses bilaterally Neurological Exam: Alert and oriented 3. [No focal neurologic deficit.] Psychiatric: Normal mood affect and normal mental status examination. Skin no rashes and no petechiae - Labs CBC & Chem 7: 01/25/22 06:24 01/25/22 06:24 Labs: Abnormal Lab Results - Last 24 Hours (Table) 01/24/22 01/24/22 01/24/22 Range/Units 14:10 15:19 15:19 RBC 3.76 L (4.30-5.90) m/uL Hgb 11.7 L (13.0-17.5) gm/dL Hct 35.4 L (39.0-53.0) % Neutrophils # 8.2 H (1.3-7.7) k/uL Lymphocytes # 0.9 L (1.0-4.8) k/uL Sodium (137-145) mmol/L Glucose 160 H (74-99) mg/dL POC Glucose (mg/dL) (70-110) mg/dL Hemoglobin A1c (0.0-6.0) % Calcium 8.2 L (8.4-10.2) mg/dL Total Protein 5.4 L (6.3-8.2) g/dL Albumin 2.9 L (3.5-5.0) g/dL HDL Cholesterol 32.10 L (40.00-60.00) mg/dL TSH 0.295 L (0.465-4.680) mIU/L Urine Glucose (UA) 4+ H (Negative) Ur Leukocyte Esterase Trace H (Negative) Urine Bacteria Rare H (None) /hpf 01/24/22 01/24/22 01/24/22 Range/Units 15:19 17:07 20:54 RBC (4.30-5.90) m/uL Hgb (13.0-17.5) gm/dL Hct (39.0-53.0) % Neutrophils # (1.3-7.7) k/uL Lymphocytes # (1.0-4.8) k/uL Sodium (137-145) mmol/L Glucose (74-99) mg/dL POC Glucose (mg/dL) 127 H 140 H (70-110) mg/dL Hemoglobin A1c 7.8 H (0.0-6.0) % Calcium (8.4-10.2) mg/dL Total Protein (6.3-8.2) g/dL Albumin (3.5-5.0) g/dL HDL Cholesterol (40.00-60.00) mg/dL TSH (0.465-4.680) mIU/L Urine Glucose (UA) (Negative) Ur Leukocyte Esterase (Negative) Urine Bacteria (None) /hpf 01/25/22 01/25/22 01/25/22 Range/Units 06:24 06:24 07:12 RBC 3.57 L (4.30-5.90) m/uL Hgb 11.3 L (13.0-17.5) gm/dL Hct 33.3 L (39.0-53.0) % Neutrophils # (1.3-7.7) k/uL Lymphocytes # (1.0-4.8) k/uL Sodium 135 L (137-145) mmol/L Glucose 63 L (74-99) mg/dL POC Glucose (mg/dL) 69 L (70-110) mg/dL Hemoglobin A1c (0.0-6.0) % Calcium 8.0 L (8.4-10.2) mg/dL Total Protein (6.3-8.2) g/dL Albumin (3.5-5.0) g/dL HDL Cholesterol (40.00-60.00) mg/dL TSH (0.465-4.680) mIU/L Urine Glucose (UA) (Negative) Ur Leukocyte Esterase (Negative) Urine Bacteria (None) /hpf Microbiology - Last 24 Hours (Table) 01/24/22 14:44 Nasal Screen MRSA/MSSA - Preliminary Nasal Swab Assessment and Plan Assessment: Impression: 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 Lopez Recommendation: Continue to monitor in the ICU Encourage incentive spirometry. Continue antibiotics, as there infectious disease on the case. Bronchodilators for his underlying COPD including DuoNeb and Symbicort GI and DVT prophylaxis. We will continue to follow. Time with Patient: Less than 30
[2022-01-25] MEDS ORDERED: IV FLUID CONTINUATION 800 ML IV ONE (12:45)
[2022-01-25] MEDS ORDERED: fentaNYL (PF) 50 MCG/ML 2 ML AMP ONE (13:04)
[2022-01-25] MEDS ORDERED: fentaNYL (PF) 50 MCG/ML 2 ML AMP IV ONE (13:05)
[2022-01-25] MEDS ORDERED: LIDOCAINE 1% INJ 10MG/ML (30 ML VIAL-PF) SQ ONE (13:06)
--- NOTE | 2022-01-25 13:28 | P.PCN ---
Date of Procedure: 01/25/22 Description of Procedure: Temporary pacemaker Procedure: After explaining the procedure the patient as well as the risk and the complication, after being prepped and dropped in the conventional fashion, using Xylocaine anesthesia in the Seldinger technique a 6-Mauritian sheaths were introduced in the right femoral vein, a 6-Mauritian temporary pacemaker wire was introduced, positioned and pacing parameters were obtained. It was secured in place with a pacing rate of 50 and output of 3 amp, there was no immediate complication, the patient was returned to his room in stable condition.
[2022-01-25 16:53] LABS: Glucose,Whole Blood 232 mg/dL (70-110)
[2022-01-25 21:05] LABS: Glucose,Whole Blood 264 mg/dL (70-110)
[2022-01-25] MEDS: INSULIN DETEMIR (LEVEMIR) 100 UNIT/ML SYR SQ SCH (21:16)
[2022-01-25] MEDS: ATORVASTATIN 40 MG TAB PO SCH (21:16)
--- NOTE | 2022-01-25 23:08 | CONS ---
CONSULTATION This is a 76-year-old gentleman with history of aortic valve replacement, who presented to [facility] with mental status changes, and his workup revealed an infective endocarditis involving a prosthetic aortic valve. He was being treated with optimal medical therapy including antibiotics and had episodes of junctional bradycardia and also intermittent episodes of second-degree heart block. Due to this, he was transferred to [facility], and Cardiothoracic Surgery was consulted for aortic valve replacement. He has since been evaluated by the surgeon. I am seeing him for the first time this morning. The patient appears comfortable at rest, stable hemodynamically, and with no symptoms. He continues to have intermittent episodes of high-grade AV block with second-degree heart block, junctional rhythm, and wide-complex rhythm. 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 This apparently was not seen on a transesophageal echo that was performed. I spoke to Dr. Molina, who felt that in the absence of severe aortic regurgitation and not seeing the aortic root abscess. I am not sure if he is ready to take him to surgery at this time, but suggested that we have a temporary transvenous pacemaker while we are making these decisions. I asked Dr. Cárdenas, the patient's primary vocational placement specialist to perform a temporary transvenous pacemaker, and we can make a decision on Friday as to which way we are going to proceed, either replace the infected prosthetic valve or continue to treat him with antibiotics. I reviewed these issues at length with the patient. He understands and in agreement with the plans. MMCHANDANA / MONICAN: [id number] /
--- NOTE | 2022-01-26 00:17 | P.CONS ---
History of Present Illness - Reason for Consult Consult date: 01/24/22 endocarditis Requesting physician: Jose Raul Parish - Chief Complaint shortness of breath x few days - History of Present Illness History of Present Illness : Patient is a 76-year male with a past medical he significant for bioprosthetic aortic valve patient was recently admitted at [facility] with sepsis in this patient did have evidence of Enterococcus faecalis bacteremia further work-up did shows evidence of bioprosthetic aortic valve vegetation and endocarditis patient has cleared his bacteremia however the patient did develop a rhythm abnormality "concerning for possible aortic valve root abscess for the patient has been transferred to [facility] to be evaluated by CT surgery. On today's evaluation that is 01/24/2022, the patient denies having any fever or any chills patient is breathing comfortably denies any chest pain or shortness of breath or cough no nausea no vomiting no abdominal pain and no diarrhea Review of system: CONSTITUTIONAL: Positive for weakness denies fever. EYES: No complaint. ENT: No complaint. RESPIRATORY: As per history of present illness CARDIOVASCULAR: As per history of present illness. GENITOURINARY: No complaint. GASTROINTESTINAL: No complaint. MUSCULOSKELETAL: No complaint. INTEGUMENTARY : No complaint. PSYCHOLOGIC: No complaint. ENDOCRINE: No complaint. NEUROLOGIC: No complaint. Past medical history : Reviewed, documented below Past surgical history : Reviewed, documented below Social history: Reviewed, documented below Medications: Reviewed, as documented below EXAMINATION: Vital sigans= Reviewed and documented below GENERAL DESCRIPTION: Elderly male lying in bed, no distress. No tachypnea or accessory muscle of respiration use. HEENT: Shows Pallor , no scleral icterus. Oral mucous membrane is dry. NECK: Trachea central, no thyromegaly. LUNGS: Unlabored breathing. Clear to auscultation anteriorly. No wheeze or crackle. HEART: S1, S2, regular rate and rhythm. ABDOMEN: Soft, no tenderness , guarding or rigidity EXTREMITIES: No edema feet SKIN: No rash, no masses palpable. NEUROLOGICAL: The patient is awake, alert, oriented x3, mood and affect normal. LABS AND RADIOLOGY: Reviewed results see below Assessment : 1patient with Enterococcus faecalis bacteremia secondary to bioprosthetic aortic valve endocarditis now with evidence of rhythm abnormality and concern for possible aortic root abscess for which the patient has been transferred to [facility] to be evaluated by CT surgery Plan: 1-patient benefit from repeat REESE 2-patient to continue with ampicillin 2 g every 4 hours along with Rocephin 2 g every 12 follow-up 3-blood culture has been repeated We will follow on clinical condition and cultures to further adjust medication if needed Thank you for this consultation we will follow the patient along with you Past Medical History Past Medical History: Asthma, Cancer, Diabetes Mellitus, Hyperlipidemia, Hypertension, Osteoarthritis (OA), Prostate Disorder Additional Past Medical History / Comment(s): AORTIC VALVE STENOSIS, HX SKIN CA melanoma removed from back November 2021 History of Any Multi-Drug Resistant Organisms: None Reported MDRO Source:: left leg 1961 Past Surgical History: Cardiac Valve Replacement, Heart Catheterization Additional Past Surgical History / Comment(s): left leg infection removed, Benign right breast tumor 1961; Aortic valve replaced [address] Sarah ball Past Anesthesia/Blood Transfusion Reactions: No Reported Reaction Past Psychological History: No Psychological Hx Reported Smoking Status: Former smoker Past Alcohol Use History: Occasional Additional Past Alcohol Use History / Comment(s): Quit 1992, smoked 1ppd from age 16, Past Drug Use History: None Reported - Past Family History Mother Family Medical History: Cancer, Congestive Heart Failure (CHF) Additional Family Medical History / Comment(s): renal, melanoma Father Family Medical History: Cancer Additional Family Medical History / Comment(s): melanoma Sister(s) Family Medical History: AFIB Brother(s) Family Medical History: No Reported History Daughter(s) Family Medical History: No Reported History Son(s) Family Medical History: No Reported History Medications and Allergies Home Medications Medication Instructions Recorded Confirmed Type Doxazosin Mesylate [Cardura] 8 mg PO BID 10/03/16 01/24/22 History Finasteride [Proscar] 5 mg PO DAILY 10/03/16 01/24/22 History Glimepiride [Amaryl] 4 mg PO BID 10/03/16 01/24/22 History Montelukast [Singulair] 10 mg PO DAILY 10/03/16 01/24/22 History Atorvastatin [Lipitor] 40 mg PO HS #30 tab 11/20/17 01/24/22 Rx Aspirin 325 mg PO DAILY #30 tab 12/08/17 01/24/22 Rx Albuterol Sulfate [Albuterol 1 puff PO RT-Q4H PRN 01/24/22 01/24/22 History Sulfate Hfa] Baclofen 10 mg PO BID PRN 01/24/22 01/24/22 History Calcium Carbonate [Calcium] 600 mg PO BID 01/24/22 01/24/22 History Clotrimazole/Betameth Cream 1 applic TOPICAL BID 01/24/22 01/24/22 History [Lotrisone] Dapagliflozin Propanediol [Farxiga] 10 mg PO DAILY 01/24/22 01/24/22 History Febuxostat [Uloric] 40 mg PO DAILY 01/24/22 01/24/22 History Fluticasone Propion/Salmeterol 2 puff INHALATION RT-BID 01/24/22 01/24/22 History [Advair Hfa 115-21 Mcg Inhaler] Furosemide [Lasix] 40 mg PO DAILY 01/24/22 01/24/22 History Insulin Glargine,Hum.rec.anlog 24 units SQ HS 01/24/22 01/24/22 History [Toujeo Solostar] Losartan Potassium [Cozaar] 100 mg PO DAILY 01/24/22 01/24/22 History Magnesium 250 mg PO DAILY 01/24/22 01/24/22 History Pioglitazone [Actos] 30 mg PO DAILY 01/24/22 01/24/22 History Tamsulosin HCl [Flomax] 0.4 mg PO DAILY 01/24/22 01/24/22 History allopurinoL 100 mg PO DAILY 01/24/22 01/24/22 History amLODIPine [Norvasc] 5 mg PO BID 01/24/22 01/24/22 History hydrALAZINE HCL [Apresoline] 100 mg PO TID-W/MEALS 01/24/22 01/24/22 History Allergies Allergy/AdvReac Type Severity Reaction Status Date / Time No Known Allergies Allergy Verified 01/24/22 14:07 Physical Exam Vitals: Vital Signs Temp Pulse Resp BP Pulse Ox 01/24/22 13:10 40 L 14 126/63 95 01/24/22 13:00 57 L 22 95 01/24/22 12:50 53 L 20 96 01/24/22 12:40 48 L 22 148/67 95 01/24/22 12:30 46 L 24 95 01/24/22 12:20 98.4 F 51 L 24 137/60 96 Intake and Output 01/23/22 01/24/22 01/24/22 22:59 06:59 14:59 Other: Weight 104 kg Results CBC & Chem 7: 01/25/22 06:24 01/25/22 06:24 Labs: Abnormal Lab Results - Last 24 Hours (Table) 01/24/22 Range/Units 12:13 POC Glucose (mg/dL) 163 H (70-110) mg/dL
--- NOTE | 2022-01-26 00:21 | P.PN ---
Subjective Progress Note Date: 01/25/22 Principal diagnosis: Endocarditis Patient is a 76-year old male with Enterococcus faecalis bacteremia secondary to bioprosthetic aortic valve endocarditis developing his rhythm abnormality concern for possible aortic root abscess for the patient was transferred to this facility, patient is status post temporary pacemaker placement by cardiology on 01/25/2022. On today's evaluation that is 01/25/2022, the patient denies having any fever or any chills, the patient is breathing comfortably, denies any chest pain or shortness of breath or cough no abdominal pain no diarrhea Objective - Vital Signs Vital signs: Vital Signs Temp 98.2 F 01/25/22 09:00 Pulse 57 L 01/25/22 14:00 Resp 18 01/25/22 14:00 BP 153/77 01/25/22 14:00 Pulse Ox 95 01/25/22 14:00 FiO2 Intake & Output 01/24/22 01/25/22 01/25/22 18:59 06:59 18:59 Intake Total 565 473 0221 Output Total 976 883 5485 Balance -250 -90 -205 Weight 104 kg 106.6 kg Intake: IV 550 430 375 0.9NS 50 80 100 Ampicillin 2,000 mg In 300 200 Sodium Chloride 0.9% 100 ml @ 200 mls/hr IVPB Q4HR [facility] Rx#:[id number] Vancomycin 500 cefTRIAXone 2 gm In 50 50 Sodium Chloride 0.9% 50 ml @ 100 mls/hr IVPB Q12HR [facility] Rx#:[id number] Oral 720 Output: Urine 271 344 4875 Other: Voiding Method Urinal Urinal Urinal # Voids 1 - Exam GENERAL DESCRIPTION: Elderly male lying in bed, no distress. No tachypnea or accessory muscle of respiration use. LUNGS: Unlabored breathing. Decreased breath sound at the base HEART: S1, S2, regular rate and rhythm. No loud murmur ABDOMEN: Soft, no tenderness , guarding or rigidity, no organomegaly EXTREMITIES: No edema of feet. - Labs CBC & Chem 7: 01/25/22 06:24 01/25/22 06:24 Labs: Abnormal Lab Results - Last 24 Hours (Table) 01/24/22 01/24/22 01/24/22 Range/Units 15:19 15:19 15:19 RBC 3.76 L (4.30-5.90) m/uL Hgb 11.7 L (13.0-17.5) gm/dL Hct 35.4 L (39.0-53.0) % Neutrophils # 8.2 H (1.3-7.7) k/uL Lymphocytes # 0.9 L (1.0-4.8) k/uL Sodium (137-145) mmol/L Glucose 160 H (74-99) mg/dL POC Glucose (mg/dL) (70-110) mg/dL Hemoglobin A1c 7.8 H (0.0-6.0) % Calcium 8.2 L (8.4-10.2) mg/dL Total Protein 5.4 L (6.3-8.2) g/dL Albumin 2.9 L (3.5-5.0) g/dL HDL Cholesterol 32.10 L (40.00-60.00) mg/dL TSH 0.295 L (0.465-4.680) mIU/L 01/24/22 01/24/22 01/25/22 Range/Units 17:07 20:54 06:24 RBC 3.57 L (4.30-5.90) m/uL Hgb 11.3 L (13.0-17.5) gm/dL Hct 33.3 L (39.0-53.0) % Neutrophils # (1.3-7.7) k/uL Lymphocytes # (1.0-4.8) k/uL Sodium (137-145) mmol/L Glucose (74-99) mg/dL POC Glucose (mg/dL) 127 H 140 H (70-110) mg/dL Hemoglobin A1c (0.0-6.0) % Calcium (8.4-10.2) mg/dL Total Protein (6.3-8.2) g/dL Albumin (3.5-5.0) g/dL HDL Cholesterol (40.00-60.00) mg/dL TSH (0.465-4.680) mIU/L 01/25/22 01/25/22 Range/Units 06:24 07:12 RBC (4.30-5.90) m/uL Hgb (13.0-17.5) gm/dL Hct (39.0-53.0) % Neutrophils # (1.3-7.7) k/uL Lymphocytes # (1.0-4.8) k/uL Sodium 135 L (137-145) mmol/L Glucose 63 L (74-99) mg/dL POC Glucose (mg/dL) 69 L (70-110) mg/dL Hemoglobin A1c (0.0-6.0) % Calcium 8.0 L (8.4-10.2) mg/dL Total Protein (6.3-8.2) g/dL Albumin (3.5-5.0) g/dL HDL Cholesterol (40.00-60.00) mg/dL TSH (0.465-4.680) mIU/L Microbiology - Last 24 Hours (Table) 01/24/22 14:44 Nasal Screen MRSA/MSSA - Final Nasal Swab Assessment and Plan (1) Endocarditis Current Visit: Yes Status: Acute Code(s): I38 - ENDOCARDITIS, VALVE UNSPECIFIED SNOMED Code(s): 96511050 Plan: 1-patient with Enterococcus faecalis bacteremia secondary to bioprosthetic aortic valve endocarditis now with development of complication with bradycardia arrhythmia concerning for aortic root abscess s/p temporary pacemaker placement patient benefit from repeat REESE to better define underlying pathology, continue with ampicillin and Rocephin and monitor clinical course closely
[2022-01-26] MEDS: ACETAMINOPHEN TAB 325 MG TAB PO PRN ×2 (01:35→19:59)
[2022-01-26] MEDS: ALBUTEROL NEBULIZED 2.5 MG/3 ML INHALATION PRN ×2 (02:27→08:00)
[2022-01-26] MEDS: AMPICILLIN 2,000 MG in SODIUM CHLORIDE 0.9% 100 ML IVPB SCH ×5 (04:06→20:00)
[2022-01-26 06:39] LABS: Glucose,Whole Blood 76 mg/dL (70-110)
[2022-01-26] MEDS: INSULIN ASPART (NovoLOG) 100 UNIT/ML VIAL SQ SCH ×4 (06:43→20:38)
[2022-01-26] MEDS: PANTOPRAZOLE 40 MG TABLET PO SCH (06:48)
[2022-01-26] MEDS: hydrALAZINE HCL 50 MG TAB PO SCH ×3 (06:48→16:29)
[2022-01-26] MEDS: SYMBICORT 160-4.5 MCG INHALER INHALATION SCH ×2 (08:00→20:44)
[2022-01-26] MEDS: HEPARIN SODIUM,PORCINE/PF 5,000 UNIT/0.5 ML SYRINGE SQ SCH ×2 (08:50→20:06)
[2022-01-26] MEDS: FINASTERIDE 5 MG TAB PO SCH (08:51)
[2022-01-26] MEDS: ASPIRIN 325 MG TAB PO SCH (08:51)
[2022-01-26] MEDS: TAMSULOSIN 0.4 MG CAP.ER.24H PO SCH (08:51)
[2022-01-26] MEDS: CALCIUM CARBONATE 500 MG CHEWABLE PO SCH ×2 (08:51→20:06)
[2022-01-26] MEDS: LOSARTAN 50 MG TAB PO SCH (08:51)
[2022-01-26] MEDS: MAGNESIUM OXIDE 400 MG TAB PO SCH (08:51)
[2022-01-26] MEDS: DAPAGLIFLOZIN PROPANEDIOL 10 MG TABLET PO SCH (08:51)
[2022-01-26] MEDS: SENNOSIDES-DOCUSATE SODIUM 1 EACH TAB PO SCH (08:51)
[2022-01-26] MEDS: FUROSEMIDE 40 MG TAB PO SCH (08:52)
[2022-01-26] MEDS: GLIMEPIRIDE 2 MG TAB PO SCH ×2 (08:52→20:07)
[2022-01-26] MEDS: DOXAZOSIN 4 MG TAB PO SCH ×2 (08:52→20:07)
[2022-01-26] MEDS: allopurinoL 100 MG TAB PO SCH (08:52)
[2022-01-26] MEDS: amLODIPine 5 MG TAB PO SCH ×2 (08:52→20:06)
[2022-01-26] MEDS: MONTELUKAST 10 MG TAB PO SCH (08:52)
[2022-01-26] MEDS: MUPIROCIN 2% OINT 22 GM TUBE NASAL SCH ×2 (08:53→20:07)
--- NOTE | 2022-01-26 10:30 | P.PN ---
Subjective Progress Note Date: 01/26/22 HISTORY OF PRESENT ILLNESS This is a 76-year-old male patient with past medical history of hypertension with hypertensive cardiovascular disease, hyperlipidemia, diabetes mellitus type 2 with diabetic polyneuropathy, enlarged prostate, history of aortic valve disease status post aortic valve replacement with a 23 mm valve on 12/04/2017, prior to that, left heart catheterization revealed 30-40% stenosis in the RCA in 2018, history of melanoma status post resection 12/07/2021, from the back. Patient initially presented to [facility] with mental status changes with significant encephalopathy. CAT scan of the brain did not show any acute infarct or bleed. Patient did have leukocytosis and low-grade fever. He is status post IV fluid resuscitation, he was started on IV antibiotics initially in the form of Levaquin and subsequently changed to ampicillin and cef triaxone by Dr. Cunningham. EKG did not show any evidence of acute changes. CAT scan of the chest abdomen and pelvis showed some perinephric stranding without evidence of hydronephrosis, there was evidence of diverticulosis without diverticulitis. CAT scan of the chest showed evidence of cardiomegaly with bilateral pleural effusion and possible pulmonary fibrosis. CAT scan of the cervical spine did show evidence of spondylosis of cervical spine without evidence of fracture. CAT scan of the brain showed brain atrophy without evidence of acute infarct or bleed, small vessel disease present. Patient was initially admitted to [facility] where he was followed by infectious disease as well as cardiology. He underwent a REESE on 01/22 revealed left ventricular systolic function normal at 55-60%, small aortic valve vegetation was present measuring 0.53 cm. Patient has bioprosthetic aortic valve. Moderate MR, [id number] tricuspid regurgitation, no pericardial effusion. Patients blood cultures were positive for enterococcus species. Patient was in a sinus rhythm with a first-degree AV block but subsequently developed a high-grade AV block on 01/24 with progressive worsening of the AV block and PVCs. Patient is complaining of left lower rib cage chest discomfort. No palpitations or dizziness. Patient was then transferred to [facility] to be evaluated by cardiothoracic surgery team. Patient is seen today in the intensive care unit, consults added for cardiology, studio operations engineer in charge, cardiothoracic surgery. 01/25: Patient is seen today in the ICU. He states he slept well last night. He states he is better able to take a deep breath with less pain on his left chest wall. He is able to reach 1500 MLS on incentive spirometry. He is complaining of tingling in bilateral feet. Has not had a bowel movement but feels that he needs to today. Senokot scheduled added. Blood sugar was low this morning and glimepiride decreased to 2 mg twice daily and Levemir decreased to 20 units. Patient has an external catheter in place draining clear emily urine. He has been evaluated by cardiology, cardiothoracic surgery and studio operations engineer in charge. Cardiology is planning for temporary pacemaker. C plan to continue close monitoring in the intensive care unit, monitor results of the blood cultures.hest x-ray reveals postoperative changes similar to prior exam. There may be some interstitial changes. Carotid ultrasound reveals slight elevated velocity in the internal carotid arteries bilaterally suggestive of 50-70 percent stenosis. There is antegrade flow in the vertebral arteries. Panorex CAT scan completed without any significant abnormalities. Arterial ultrasound bilateral lower extremities revealed normal ankle brachial indices. 05/07: Patient is lying down in bed in no acute distress, yesterday underwent temporary TVP for 2nd degree AV block, plan is to repeat REESE for further evaluation of possible abscess formation and the degree of involvement of the aortic ring of the bioprosthetic aortic valve, we will continue with IV Rocephin and Ampicillin for now, repeated blood cltures from 01/24/2022 still no growth so far, also nasal screen negative for MSSA.MRSA, bedside spirometer showed FEV2 38 % of predicted, we will continue with aggressive pulmonary toiletting, patient has been seen by multiple services , prognosis continues to be guarded, spoke with his daughter and his over the phone , they are contemplating if he should go to a [facility] or [facility], our cardiothoracic team is involved and hopefully will see patient today and alleviate his concerns and give their recommendations on surgical intervention. REVIEW OF SYSTEMS Constitutional: No fever, no chills, no night sweats. No weight change. No weakness, reports fatigue no lethargy. No daytime sleepiness. EENT: No headache. No blurred vision or double vision, no loss of vision. No loss of Hearing, no ringing in the ears, no dizziness. No nasal drainage or congestion. No epistaxis. No sore throat. Lungs: No shortness of breath, cough, no sputum production. No wheezing. Cardiovascular: Reports left sided rib chest pain-improved, no lower extremity edema. No palpitations. No paroxysmal nocturnal dyspnea. No orthopnea. No lightheadedness or dizziness. No syncopal episodes. Abdominal: No abdominal pain. No nausea, vomiting. No diarrhea. No constipation. No bloody or tarry stools. No loss of appetite. Genitourinary: No dysuria, increased frequency, urgency. No urinary retention. Musculoskeletal: No myalgias. No muscle weakness, no gait dysfunction, no frequent falls. No back pain. No neck pain. Integumentary: No wounds, no lesions. No rash or pruritus. No unusual bruising. No change in hair or nails. Neurologic: No aphasia. No facial droop. No change in mentation. No head injury. No headache. No paralysis. No paresthesia. Psychiatric: No depression. No anxiety. No mood swings. Endocrine: No abnormal blood sugars. No weight change. No excessive sweating or thirst. No cold intolerance. PHYSICAL EXAMINATION Gen: This is a 76-year-old male. He is resting in ICU bed and appears to be in no acute distress. HEENT: Head is atraumatic, normocephalic. Pupils equal, round. Sclerae is anicteric. NECK: Supple. No JVD. No lymphadenopathy. No thyromegaly. LUNGS: Clear to auscultation. No wheezes or rhonchi. No intercostal retractions. HEART: First heart sound is depressed, second heart sound is normal, aortic v alve click, systolic ejection murmur 2/6 at the left sternal border.. ABDOMEN: Soft. Bowel sounds are present. No masses. No tenderness. EXTREMITIES: No pedal edema. No calf tenderness. Dorsalis pedis +2 bilaterally. NEUROLOGICAL: Patient is awake, alert and oriented x3. Cranial nerves 2 through 12 are grossly intact. Muscle power 4 out of 5 upper and lower extremities bilaterally. ASSESSMENT AND PLAN 1. 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 Patients mental status is back to baseline. Patient admitted into the intensive care unit, consult in place with studio operations engineer in charge, infectious disease, cardiothoracic surgery. Continue patient on ampicillin 2 g IV piggyback every 4 hours, ceftriaxone 2 g IV piggyback every 12 hours. Monitor for blood culture results. 2. High-grade AV block. Patient was transferred to [facility], S/P TVP was placed yesterday. 3. Mild elevation in troponin secondary to sepsis, stable.patient will need to have repeated LHC prior to any valve surgery. 4. Hypertension with hypertensive cardiovascular disease. Continue patient on losartan 100 mg daily, hydralazine 100 mg 3 times daily, amlodipine 5 mg twice daily, Cardura 8 mg twice daily, Lasix 40 mg daily. 5. Hyperlipidemia. Continue atorvastatin 40 mg at bedtime. 6. Diabetes mellitus type 2, uncontrolled with hypoglycemia. Continue patient on Levemir 20 units at bedtime, NovoLog scale before meals and at bedtime, glimepiride decreased to 2 mg twice daily, Farxiga 10 mg daily. 7. Benign prostatic hypertrophy. Continue Flomax or 0.4 mg daily, continue finasteride 5 mg daily 8. 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 Continue patient on Symbicort 160- 4.5 g 2 puffs twice daily, albuterol nebulizer every 4 hours as needed for shortness of breath, reviewed bedside spirometery with FEV1 38 % of predicted. 9. ALLERGIC rhinitis. Continue Singulair 10 mg at bedtime. 10. Chronic gout. Continue allopurinol 100 mg daily. 11. DVT prophylaxis. Heparin 5000 units subcu every 12 hours. 12. GI prophylaxis. Protonix 40 mg daily. CODE STATUS: Full code. Objective - Vital Signs Vital signs: Vital Signs Temp 98.2 F 01/26/22 04:00 Pulse 68 01/26/22 08:13 Resp 13 01/26/22 07:00 BP 142/72 01/26/22 07:00 Pulse Ox 91 L 01/26/22 07:00 FiO2 Intake & Output 01/25/22 01/26/22 01/26/22 18:59 06:59 18:59 Intake Total 1275 360 30 Output Total 1500 975 275 Balance -225 -615 -245 Weight 108 kg Intake: IV 555 360 30 0.9NS 180 360 30 Ampicillin 2,000 mg In 300 Sodium Chloride 0.9% 100 ml @ 200 mls/hr IVPB Q4HR [facility] Rx#:[id number] cefTRIAXone 2 gm In 50 Sodium Chloride 0.9% 50 ml @ 100 mls/hr IVPB Q12HR [facility] Rx#:[id number] Oral 720 Output: Urine 1500 975 275 Other: Voiding Method Urinal External Catheter # Voids 1 - Labs CBC & Chem 7: 01/25/22 06:24 01/25/22 06:24 Labs: Abnormal Lab Results - Last 24 Hours (Table) 01/25/22 01/25/22 Range/Units 16:51 21:04 POC Glucose (mg/dL) 232 H 264 H (70-110) mg/dL Microbiology - Last 24 Hours (Table) 01/24/22 15:19 Blood Culture - Preliminary Blood No Growth after 24 hours 01/24/22 15:19 Blood Culture - Preliminary Blood No Growth after 24 hours 01/24/22 14:44 Nasal Screen MRSA/MSSA - Final Nasal Swab
--- NOTE | 2022-01-26 11:12 | P.PN ---
Subjective Progress Note Date: 01/26/22 Principal diagnosis: Acute infectious endocarditis This is a 76-year-old white male with history of multiple medical problems including hypertension, diabetes with diabetic polyneuropathy, dyslipidemia, history of COPD and he normally sees Dr. Ferreira for his COPD. Patient is also known to have history of obstructive sleep apnea syndrome, and melanoma resected from the back previously. Patient was admitted to [facility] back on 01/20/22, he was basically admitted with mental status change, or, and tachycardia. Patient had a previous history of aortic valve replacement in 2018, and patient was noted to have positive blood cultures for enterococcus faecalis. Continued to have positive blood cultures, he was seen by cardiology, and on 01/22, the patient underwent REESE which clearly confirmed vegetations on the aortic valve. It was reported as a small aortic valve vegetation present on a bioprosthetic aortic valve. His REESE also showed moderate mitral regurgitation and moderate tricuspid regurgitation. Patient was seen by infectious disease, started on broad-spectrum antibiotics, and no major arrhythmias noted until today. On telemetry monitoring, the patient was noted to have high grade AV block's with some bradycardia. He was also noted to have progression of his AV block's, and PVCs consistent with extension of the infection into the septal myocardium. Hence arrangements were made to transfer the patient to [facility] to be seen by the cardiothoracic surgical team. In the meantime the patient has been on Rocephin and ampicillin and vancomycin. Again infectious disease service is addressing the antibiotics accordingly. I saw the patient upon arrival to the ICU, he seems to be fairly comfortable, not in any distress, and hemodynamically stable. Patient is noted to have intermittently high-grade AV blocks, and cardiology will be evaluating the patient while in the ICU shortly. Cardiac consultation is pending. Labs were reviewed WBC count is 9.7 hemoglobin is 11.7 a left was are normal renal profile is normal, urinalysis is unremarkable. Patient was reevaluated today on 01/25/22 patient remains in the ICU, remains on broad-spectrum antibiotics, he is hemodynamically stable, not in any form of distress, not requiring any pressors or any inotropes. Remains on ampicillin and Rocephin as recommended by infectious disease for his Enterococcus faecalis endocarditis. His labs today are basically unremarkable. Patient is being considered for surgical intervention by cardiothoracic surgery. Labs today were basically unremarkable including relatively normal CBC and normal basic metabolic profile Reevaluated today on 01/26/22, patient remains in the ICU, has been seen by many consultants, patient is to be seen by thoracic surgery today, apparently cardiology declined repeating is REESE, and felt very confident that the patient has endocarditis, and no need to repeat his REESE. Patient is being considered for transfer to another tertiary care center but he is yet to be seen by cardiothoracic surgery. In the meantime the patient seems to be hemodynamically stable, he is on room air, not in any distress. Objective - Vital Signs Vital signs: Vital Signs Temp 98.2 F 01/26/22 08:00 Pulse 68 01/26/22 09:00 Resp 14 01/26/22 09:00 BP 144/52 01/26/22 09:00 Pulse Ox 92 L 01/26/22 09:00 FiO2 Intake & Output 01/25/22 01/26/22 01/26/22 18:59 06:59 18:59 Intake Total 1275 360 210 Output Total 5716 845 8223 Balance -225 -615 -915 Weight 108 kg Intake: IV 555 360 210 0.9NS 180 360 60 Ampicillin 2,000 mg In 300 100 Sodium Chloride 0.9% 100 ml @ 200 mls/hr IVPB Q4HR [facility] Rx#:[id number] cefTRIAXone 2 gm In 50 50 Sodium Chloride 0.9% 50 ml @ 100 mls/hr IVPB Q12HR [facility] Rx#:[id number] Oral 720 Output: Urine 1680 386 [id number] Other: Voiding Method Urinal External Catheter # Voids 1 2 - Exam Physical Exam: Revealed a 76-year-old white male in no distress, on room air. Head: Atraumatic, normocephalic. HEENT:[Neck is supple.] [No neck masses.] [No thyromegaly.] [No JVD.] Chest: [Clear throughout, no crackles, no rhonchi, no wheezes.] Cardiac Exam: Distant S1 and S2, positive aortic valve click, and systolic ejection murmur best heard over the aortic area Abdomen: [Obese, Soft, nontender, no megaly, no rebound, no guarding, normal bowel sounds.] Extremities: [No clubbing, no edema, no cyanosis.] Good pulses bilaterally Neurological Exam: Alert and oriented 3. [No focal neurologic deficit.] Psychiatric: Normal mood affect and normal mental status examination. 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 Repeat blood cultures have been negative since transfer to [facility]. 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 Lopez Recommendation: Continue to monitor in the ICU Continue incentive spirometry. Continue antibiotics, as there infectious disease on the case. Patient is on ampicillin, high dose, and Rocephin. Bronchodilators for his underlying COPD including DuoNeb and Symbicort GI and DVT prophylaxis. We will continue to follow. Time with Patient: Less than 30
[2022-01-26 11:23] LABS: Basophils % (A) 1 %; Eosinophils % (A) 1 %; HCT 35.2 % (39.0-53.0); HGB 11.5 gm/dL (13.0-17.5); Hypochromasia Slight; Lymphocytes # (A) 0.6 k/uL (1.0-4.8); Lymphocytes % (A) 8 %; MCHC 32.8 g/dL (31.0-37.0); MCV 94.6 fL (80.0-100.0); Mean Platelet Volume 8.3; Monocytes # (A) 0.4 k/uL (0-1.0); Monocytes % (A) 5 %; Neutrophils # (A) 6.5 k/uL (1.3-7.7); Neutrophils % (A) 84 %; Platelet Count 211 k/uL (150-450); RBC 3.72 m/uL (4.30-5.90); RDW 13.9 % (11.5-15.5); WBC 7.7 k/uL (3.8-10.6)
[2022-01-26 11:36] LABS: Glucose,Whole Blood 286 mg/dL (70-110)
[2022-01-26 11:41] LABS: Calcium 7.7 mg/dL (8.4-10.2)
--- NOTE | 2022-01-26 12:45 | P.PN ---
Subjective Progress Note Date: 01/26/22 Principal diagnosis: This is a 76-year-old gentleman who follows on an outpatient basis with Dr. Parish for his primary care service and with Dr. Cárdenas for his cardiology care. He has a past medical history significant for hypertension, hyperlipidemia, history of severe aortic valve stenosis status post aortic valve replacement with a 23 mm Inspiris bioprosthetic aortic valve, insulin-dependent diabetes mellitus type 2, sleep apnea without any home CPAP use, COPD, asthma, gout, obesity with a BMI of 32.9 kg/m, remote history of non-ST elevated myocardial infarction in October 2017 with an RCA stenosis of 30-40% at that time, benign prostatic hypertrophy, recent removal of melanoma to his back and a remote history of nicotine dependence in which he quit smoking in the early . On 01/17/2022 the patient presented to the emergency department at [facility] due to some disorientation and mental status changes. He denies any recent nausea, vomiting, fever, chills, cough, palpitations, presyncope, syncope, headache, chest pain or chest pressure. He reports that recently he has been having some burning sensation with urinating which started around 5 weeks ago. According to his chart from [facility] his initial urinalysis was negative for any organism although a repeat urinalysis showed positive for an enterococcus species according to the infectious disease note from [facility]. Due to the patient's mental status changes a computed tomography scan of his brain was completed which did not show any evidence of acute infarct or bleed. A computed tomography scan of his chest, abdomen and pelvis was also completed which showed some apparent perinephritic fat stranding without evidence of hydronephrosis, evidence of sigmoid diverticulosis without diverticulitis, cardiomegaly with bilateral pleural effusions and possible pulmonary fibrosis. The computed tomography scan of his cervical spine showed evidence of spondylosis of the cervical spine without evidence of fracture. Initial laboratory results on 01/17/2022 showed a WBC count of 10.3, hemoglobin 13.6, hematocrit 40.4, platelets 147, sodium 132, po tassium 4.3, chloride 99, CO2 21.3, BUN 24, creatinine 1.4, glucose 161, calcium 8.7, AST 32, ALT 66, troponin was slightly elevated at 96 and his following troponins were slightly higher at 107, BNP 1005, CRP 12.9, lactic acid 1.1, PT 11.5, and INR 1.12. A 12-lead EKG was completed which showed normal sinus rhythm with a first-degree AV block with a heart rate of 90 BPM. According to the patient's chart from [facility] the patient did have blood cultures positive for enterococcus faecalis and was subsequently started on ampicillin and Rocephin for antibiotic treatment. Due to the patient's history of aortic valve replacement and positive blood cultures a transthoracic 2-D echocardiogram was completed. The 2-D echocardiogram showed a bioprosthetic aortic valve to be present, normal prosthetic aortic valve gradient, no aortic valve regurgitation and no aortic valvular stenosis. It also showed mild mitral annular calcification with mild to moderate mitral valve regurgitation, no mitral valve stenosis, mild tricuspid valve regurgitation, trace pulmonic valve regurgitation, aortic root to be normal in size, no pericardial effusion and his left ventricular systolic function to be normal with a left ventricular ejection fraction of 55%. For further evaluation the patient underwent a transesophageal echocardiogram on 01/22/2022 which demonstrated his left ventricular systolic function to be normal with a left ventricular ejection fraction to be 55-60%, a bioprosthetic aortic valve to be present, no aortic valve regurgitation, a small aortic valve vegetation present measuring 0.53 cm, mitral annular calcification, moderate mitral valve regurgitation, mild to moderate tricuspid valve regurgitation, ascending aorta to be normal in size, the ascending aorta to be normal in caliber and no pericardial effusion. Subsequently, due to the findings of a vegetation present on his bioprosthetic aortic valve a consult was placed to Dr. Omi Molina from cardiothoracic surgery for further evaluation and treatment recommendations. Status post day #1 temporary pacemaker placement by Dr. Cárdenas. The patient was seen in follow-up today 01/26/2022 at his bedside in the intensive care unit. Currently he is laying in bed, eating his breakfast, is awake, alert, oriented 3 and is in no acute distress. A temporary pacemaker was placed yesterday by Dr. Cárdenas. His bedside telemetry continues to show intermittent junctional rhythm and a second-degree AV block with intermittent paced beats. The pacemaker is currently on a VVI backup of 50 BPM. Oxygen saturation are 95% on room air and he is achieving 2250 mL on his incentive spirometry with encouragement. Ampicillin and Rocephin remain in place for antibiotic coverage managed by infectious disease for a bacteremia of enterococcus faecalis. Preliminary blood cultures sent on 01/24/2022 showed no growth after 24 hours. Patient has been afebrile the last 24 hours. Objective - Vital Signs Vital signs: Vital Signs Temp 98.2 F 01/26/22 04:00 Pulse 68 01/26/22 08:13 Resp 13 01/26/22 07:00 BP 142/72 01/26/22 07:00 Pulse Ox 91 L 01/26/22 07:00 FiO2 Intake & Output 01/25/22 01/26/22 01/26/22 18:59 06:59 18:59 Intake Total 1275 360 30 Output Total 1500 975 275 Balance -225 -615 -245 Weight 108 kg Intake: IV 555 360 30 0.9NS 180 360 30 Ampicillin 2,000 mg In 300 Sodium Chloride 0.9% 100 ml @ 200 mls/hr IVPB Q4HR [facility] Rx#:[id number] cefTRIAXone 2 gm In 50 Sodium Chloride 0.9% 50 ml @ 100 mls/hr IVPB Q12HR [facility] Rx#:[id number] Oral 720 Output: Urine 1500 975 275 Other: Voiding Method Urinal External Catheter # Voids 1 - Exam CONSTITUTIONAL: Sitting up in bed in the intensive care unit, appears comfortable, cooperative, no apparent acute distress. HEENT: Neck is supple, no JVD, no lymphadenopathy. RESPIRATORY: Lungs sounds essentially clear throughout, diminished to his bilateral bases. Respirations are symmetrical and nonlabored. Currently on room air with oxygen saturations 95%. Able to achieve 2250 mL on his incentive spirometry. Strong cough. CARDIOVASCULAR: Irregular rhythm and controlled rate. S1 and S2 present, negative for S3, or gallop. Soft systolic murmur heard best at base. Palpable peripheral pulses bilaterally, trace edema to his bilateral lower extremities. No calf pain or tenderness noted. GASTROINTESTINAL: Abdomen soft, nontender, nondistended. Active bowel sounds present 4 quadrants. Tolerating diet. Passing flatus. No guarding or rigidity. GENITOURINARY: Condom catheter in place. 525 mL of urine output in the last 8 hours. INTEGUMENTARY: Skin is warm and dry with no evidence of clubbing or cyanosis. MUSKULOSKELETAL: Able to move all extremities, strength equal bilaterally. PSYCHIATRIC: Alert and oriented to person place and time, appropriate affect, intact judgment and insight. INVASIVE LINES AND TUBES: Right groin transvenous pacer in place and connected to back up to bedside pacemaker generator on a VVI 50 BPM. - Allied health notes Allied health notes reviewed: nursing - Labs CBC & Chem 7: 01/26/22 10:56 01/26/22 10:56 Labs: Abnormal Lab Results - Last 24 Hours (Table) 01/25/22 01/25/22 Range/Units 16:51 21:04 POC Glucose (mg/dL) 232 H 264 H (70-110) mg/dL Microbiology - Last 24 Hours (Table) 01/24/22 15:19 Blood Culture - Preliminary Blood No Growth after 24 hours 01/24/22 15:19 Blood Culture - Preliminary Blood No Growth after 24 hours 01/24/22 14:44 Nasal Screen MRSA/MSSA - Final Nasal Swab Assessment and Plan Assessment: 1. Bacteremia with positive blood cultures showing enterococcus faecalis 2. Small aortic valve vegetation as evidence on transesophageal echocardiogram 3. Moderate mitral valve regurgitation on transesophageal echocardiogram 4. Possible urinary tract infection, history of UTI in the past with pseudomonas aeruginosa in January 2020 5. History of severe aortic valve stenosis, status post aortic valve replacement with a 23 mm Inspiris bioprosthetic aortic valve in November 2017 6. Cardiac arrhythmia, with telemetry showing junctional rhythm at this time heart rate in the 70s 7. Hypertension 8. Hyperlipidemia 9. History of coronary artery disease with a 30-40% stenosis to his mid right coronary artery in October 2017 10. Insulin-dependent diabetes mellitus type 2 11. Obesity with a BMI of 32.9 kg/m 12. Obstructive sleep apnea without CPAP use 13. COPD 14. History of asthma 15. Remote history of nicotine dependence quit smoking in 1992 16. Altered mental status, resolved 17. Enlarged prostate 18. History of gout 19. Slight elevated velocities in the internal carotid arteries bilaterally suggestive of 50-70% stenosis Plan: 1. Continue to monitor results of blood cultures sent yesterday 01/24/2022. No growth after 24 hours. 2. Cardiac rhythm management per cardiology recommendations. Transvenous temporary pacemaker placed yesterday by Dr. Cárdenas. 3. Encourage use of his incentive spirometry 10 times every hour while awake. 4. Patient underwent a CT Panorex yesterday, dental clearance pending. 5. Continue ampicillin and Rocephin per infectious disease recommendations. 6. Bedside FEV1 showed a predicted value of 38%. Bronchodilator management per pulmonary critical care service recommendations. 7. Diabetes management and other comorbidities per primary care service recommendations. 8. GI and DVT prophylaxis. 9. Per discussion with Dr. Molina and Dr. Mejia the patient will undergo a cardiac catheterization this coming 01/28/2022. 10. We will continue to monitor and follow this patient to determine the best course of action based on his clinical course. Time with Patient: Greater than 30
[2022-01-26 13:52] LABS: Glucose,Whole Blood 219 mg/dL (70-110)
[2022-01-26 17:27] LABS: Glucose,Whole Blood 209 mg/dL (70-110)
[2022-01-26] MEDS: ATORVASTATIN 40 MG TAB PO SCH (20:06)
[2022-01-26 20:13] LABS: Glucose,Whole Blood 159 mg/dL (70-110)
[2022-01-26] MEDS: INSULIN DETEMIR (LEVEMIR) 100 UNIT/ML SYR SQ SCH (20:39)
--- NOTE | 2022-01-26 21:50 | PN ---
PROGRESS NOTE SUBJECTIVE: Rakan is a 76-year-old gentleman with prosthetic aortic valve, who was recently admitted to [facility] with confusion, and his workup revealed vegetation over the aortic valve. He subsequently developed second-degree heart block, and there was a suspicion for perivalvular abscess and had been transferred to [facility]. He was evaluated by a surgeon, who is currently thinking over the need to do redo surgery. The patient underwent a temporary transvenous pacemaker yesterday. He did not have any pauses from yesterday to today. Intermittently, he is pacing. Pacemaker seems to be functioning normally. He is essentially free of symptoms. Does not have any fever, shortness of breath, or chest pain. He is resting comfortably in the bed. Continues to have intermittent episodes of high-grade AV block. The cardiothoracic surgeon is going to re-assess him today, and hopefully, we will have a plan in terms of what we are going to do. OBJECTIVE: GENERAL: The patient is comfortable at rest. VITAL SIGNS: Heart rate is 60 beats per minute, blood pressure is 140/72, respiratory rate is 18. NECK: There is no jugular venous distention. Carotid upstroke is normal. There is no bruit. CHEST: Reveals good air entry bilaterally. HEART: Reveals first and second heart sounds. Ejection systolic murmur in the aortic area. ABDOMEN: Soft. EXTREMITIES: Did not reveal any edema. Peripheral pulses are felt. LABORATORY DATA: Show that the potassium is 4.0, creatinine is 0.9. Hemoglobin is 11.3 and white cell count is 7.4 with a platelet count of 194. MEDICATIONS: The patient is currently on: 1. Norvasc 5 mg b.i.d. 2. Aspirin. 3. Lipitor 40 mg daily. 4. IV antibiotics. 5. Lasix. 6. Amaryl. 7. Apresoline. 8. Cozaar. ASSESSMENT: Prosthetic valve endocarditis with episodes of high-grade atrioventricular block suggestive of perivalvular abscess. PLAN: I am going to repeat a 2D echo on him to see if he developed any significant aortic regurgitation, which was not noted on the echo done at [facility]. MMODL / IJN: [id number] /
[2022-01-27] MEDS: ALBUTEROL NEBULIZED 2.5 MG/3 ML INHALATION PRN ×2 (00:33→15:48)
[2022-01-27] MEDS: AMPICILLIN 2,000 MG in SODIUM CHLORIDE 0.9% 100 ML IVPB SCH ×6 (00:34→20:33)
[2022-01-27 05:35] LABS: HCT 33.9 % (39.0-53.0); HGB 11.2 gm/dL (13.0-17.5); MCH 30.6 pg (25.0-35.0); MCHC 32.9 g/dL (31.0-37.0); MCV 93.1 fL (80.0-100.0); Mean Platelet Volume 8.9; Platelet Count 211 k/uL (150-450); RBC 3.64 m/uL (4.30-5.90); WBC 6.4 k/uL (3.8-10.6)
[2022-01-27 05:57] LABS: Calcium 8.1 mg/dL (8.4-10.2); Potassium 3.9 mmol/L (3.5-5.1)
[2022-01-27 06:25] LABS: Glucose,Whole Blood 74 mg/dL (70-110)
[2022-01-27] MEDS: INSULIN ASPART (NovoLOG) 100 UNIT/ML VIAL SQ SCH ×4 (06:34→20:33)
--- NOTE | 2022-01-27 08:23 | P.PN ---
Subjective Progress Note Date: 01/27/22 Principal diagnosis: This is a 76-year-old gentleman who follows on an outpatient basis with Dr. Parish for his primary care service and with Dr. Cárdenas for his cardiology care. He has a past medical history significant for hypertension, hyperlipidemia, history of severe aortic valve stenosis status post aortic valve replacement with a 23 mm Inspiris bioprosthetic aortic valve, insulin-dependent diabetes mellitus type 2, sleep apnea without any home CPAP use, COPD, asthma, gout, obesity with a BMI of 32.9 kg/m, remote history of non-ST elevated myocardial infarction in October 2017 with an RCA stenosis of 30-40% at that time, benign prostatic hypertrophy, recent removal of melanoma to his back and a remote history of nicotine dependence in which he quit smoking in the early . On 01/17/2022 the patient presented to the emergency department at [facility] due to some disorientation and mental status changes. He denies any recent nausea, vomiting, fever, chills, cough, palpitations, presyncope, syncope, headache, chest pain or chest pressure. He reports that recently he has been having some burning sensation with urinating which started around 5 weeks ago. According to his chart from [facility] his initial urinalysis was negative for any organism although a repeat urinalysis showed positive for an enterococcus species according to the infectious disease note from [facility]. Due to the patient's mental status changes a computed tomography scan of his brain was completed which did not show any evidence of acute infarct or bleed. A computed tomography scan of his chest, abdomen and pelvis was also completed which showed some apparent perinephritic fat stranding without evidence of hydronephrosis, evidence of sigmoid diverticulosis without diverticulitis, cardiomegaly with bilateral pleural effusions and possible pulmonary fibrosis. The computed tomography scan of his cervical spine showed evidence of spondylosis of the cervical spine without evidence of fracture. Initial laboratory results on 01/17/2022 showed a WBC count of 10.3, hemoglobin 13.6, hematocrit 40.4, platelets 147, sodium 132, po tassium 4.3, chloride 99, CO2 21.3, BUN 24, creatinine 1.4, glucose 161, calcium 8.7, AST 32, ALT 66, troponin was slightly elevated at 96 and his following troponins were slightly higher at 107, BNP 1005, CRP 12.9, lactic acid 1.1, PT 11.5, and INR 1.12. A 12-lead EKG was completed which showed normal sinus rhythm with a first-degree AV block with a heart rate of 90 BPM. According to the patient's chart from [facility] the patient did have blood cultures positive for enterococcus faecalis and was subsequently started on ampicillin and Rocephin for antibiotic treatment. Due to the patient's history of aortic valve replacement and positive blood cultures a transthoracic 2-D echocardiogram was completed. The 2-D echocardiogram showed a bioprosthetic aortic valve to be present, normal prosthetic aortic valve gradient, no aortic valve regurgitation and no aortic valvular stenosis. It also showed mild mitral annular calcification with mild to moderate mitral valve regurgitation, no mitral valve stenosis, mild tricuspid valve regurgitation, trace pulmonic valve regurgitation, aortic root to be normal in size, no pericardial effusion and his left ventricular systolic function to be normal with a left ventricular ejection fraction of 55%. For further evaluation the patient underwent a transesophageal echocardiogram on 01/22/2022 which demonstrated his left ventricular systolic function to be normal with a left ventricular ejection fraction to be 55-60%, a bioprosthetic aortic valve to be present, no aortic valve regurgitation, a small aortic valve vegetation present measuring 0.53 cm, mitral annular calcification, moderate mitral valve regurgitation, mild to moderate tricuspid valve regurgitation, ascending aorta to be normal in size, the ascending aorta to be normal in caliber and no pericardial effusion. Subsequently, due to the findings of a vegetation present on his bioprosthetic aortic valve a consult was placed to Dr. Omi Molina from cardiothoracic surgery for further evaluation and treatment recommendations. Status post day #2 temporary pacemaker placement by Dr. Cárdenas. The patient was seen in follow-up today 01/27/2022 at his bedside in the intensive care unit. Denies any complaints of pain or shortness of breath at this time. He is complaining of constipation although he did have a bowel movement this a.m. He remained hemodynamically stable and is currently on no inotropic or pressor support. Currently he is laying in bed, is awake, alert, oriented 3 and is in no acute distress. Bedside telemetry continues to show junctional with occasional second-degree AV block with occasional paced beats. Heart rate at this time is 52 BPM. Transvenous temporary pacemaker remains in place and connected to bedside pacemaker generator on a VVI mode of 50 with 10 ma. Oxygen saturation are 96% on room air and he is achieving 2250 mL on his incentive spirometry. T-max temperature in the last 24 hours is 99.5F, he remains on ampicillin and Rocephin for antibiotic coverage managed by infectious disease for an enterococcus faecalis bacteremia. Blood cultures sent on 01/25/2020 to continue to show no growth after 48 hours. Laboratory results this morning show a WBC count of 6.4, hemoglobin 11.2, hematocrit 33.9, platelets 211, sodium 138, potassium 3.9, BUN 12, creatinine 1.03, glucose 95 and calcium 8.1. Initial bedside FEV1 showed a predicted value of 38% which will be repeated today now that the patient has been more medically optimized. Objective - Vital Signs Vital signs: Vital Signs Temp 99.5 F 01/27/22 04:00 Pulse 58 L 01/27/22 06:00 Resp 21 01/27/22 06:00 BP 161/79 01/27/22 06:00 Pulse Ox 93 L 01/27/22 06:00 FiO2 Intake & Output 01/26/22 01/27/22 01/27/22 18:59 06:59 18:59 Intake Total 680 580 Output Total 3585 1100 Balance -2905 -520 Weight 108 kg Intake: IV 680 580 0.9NS 330 330 Ampicillin 2,000 mg In 300 200 Sodium Chloride 0.9% 100 ml @ 200 mls/hr IVPB Q4HR AGATA Rx#:[id number] cefTRIAXone 2 gm In 50 50 Sodium Chloride 0.9% 50 ml @ 100 mls/hr IVPB Q12HR AGATA Rx#:[id number] Output: Urine 3585 1100 Other: Voiding Method Urinal Urinal # Voids 1 - Exam CONSTITUTIONAL: Sitting up in bed in the intensive care unit, appears comfortable, cooperative, no apparent acute distress. HEENT: Neck is supple, no JVD, no lymphadenopathy. RESPIRATORY: Lungs sounds essentially clear throughout, diminished to his bilateral bases. Respirations are symmetrical and nonlabored. Currently on room air with oxygen saturations 96%. Able to achieve 2250 mL on his incentive spirometry. Strong cough. CARDIOVASCULAR: Irregular rhythm and controlled rate. S1 and S2 present, negative for S3, or gallop. Soft systolic murmur heard best at base. Palpable peripheral pulses bilaterally, trace edema to his bilateral lower extremities. No calf pain or tenderness noted. GASTROINTESTINAL: Abdomen soft, nontender, nondistended. Active bowel sounds present 4 quadrants. Tolerating diet. Passing flatus. No guarding or rigidity. Bowel movement this a.m. GENITOURINARY: Continues to void. 1185 mL of urine output in the last 8 hours. INTEGUMENTARY: Skin is warm and dry with no evidence of clubbing or cyanosis. MUSKULOSKELETAL: Able to move all extremities, strength equal bilaterally. PSYCHIATRIC: Alert and oriented to person place and time, appropriate affect, intact judgment and insight. INVASIVE LINES AND TUBES: Right groin transvenous pacer in place and connected to back up to bedside pacemaker generator on a VVI 50 BPM with ma of 10. - Allied health notes Allied health notes reviewed: nursing - Labs CBC & Chem 7: 01/27/22 05:25 01/27/22 05:25 Labs: Abnormal Lab Results - Last 24 Hours (Table) 01/26/22 01/26/22 01/26/22 Range/Units 10:56 10:56 11:25 RBC 3.72 L (4.30-5.90) m/uL Hgb 11.5 L (13.0-17.5) gm/dL Hct 35.2 L (39.0-53.0) % Lymphocytes # 0.6 L (1.0-4.8) k/uL Sodium 136 L (137-145) mmol/L Glucose 337 H (74-99) mg/dL POC Glucose (mg/dL) 286 H (70-110) mg/dL Calcium 7.7 L (8.4-10.2) mg/dL 01/26/22 01/26/22 01/26/22 Range/Units 13:51 17:25 20:12 RBC (4.30-5.90) m/uL Hgb (13.0-17.5) gm/dL Hct (39.0-53.0) % Lymphocytes # (1.0-4.8) k/uL Sodium (137-145) mmol/L Glucose (74-99) mg/dL POC Glucose (mg/dL) 219 H 209 H 159 H (70-110) mg/dL Calcium (8.4-10.2) mg/dL 01/27/22 01/27/22 Range/Units 05:25 05:25 RBC 3.64 L (4.30-5.90) m/uL Hgb 11.2 L (13.0-17.5) gm/dL Hct 33.9 L (39.0-53.0) % Lymphocytes # (1.0-4.8) k/uL Sodium (137-145) mmol/L Glucose (74-99) mg/dL POC Glucose (mg/dL) (70-110) mg/dL Calcium 8.1 L (8.4-10.2) mg/dL Microbiology - Last 24 Hours (Table) 01/24/22 15:19 Blood Culture - Preliminary Blood No Growth after 48 hours 01/24/22 15:19 Blood Culture - Preliminary Blood No Growth after 48 hours Assessment and Plan Assessment: 1. Bacteremia with positive blood cultures showing enterococcus faecalis 2. Small aortic valve vegetation as evidence on transesophageal echocardiogram 3. Moderate mitral valve regurgitation on transesophageal echocardiogram 4. Possible urinary tract infection, history of UTI in the past with pseudomonas aeruginosa in January 2020 5. History of severe aortic valve stenosis, status post aortic valve replacement with a 23 mm Inspiris bioprosthetic aortic valve in November 2017 6. Cardiac arrhythmia, with telemetry showing junctional rhythm at this time and second degree AV block, status post transvenous temporary pacemaker placement by Dr. Cárdenas 7. Hypertension 8. Hyperlipidemia 9. History of coronary artery disease with a 30-40% stenosis to his mid right c oronary artery in October 2017 10. Insulin-dependent diabetes mellitus type 2 11. Obesity with a BMI of 32.9 kg/m 12. Obstructive sleep apnea without CPAP use 13. COPD 14. History of asthma 15. Remote history of nicotine dependence quit smoking in 1992 16. Altered mental status, resolved 17. Benign prostatic hypertrophy 18. History of gout 19. Slight elevated velocities in the internal carotid arteries bilaterally suggestive of 50-70% stenosis Plan: 1. Continue to monitor results of blood cultures sent yesterday 01/24/2022. No growth after 48 hours. 2. Cardiac rhythm management per cardiology recommendations. Transvenous temporary pacemaker placed yesterday by Dr. Cárdenas on 01/25/2022. 3. Encourage use of his incentive spirometry 10 times every hour while awake. Repeat bedside FEV1 today. 4. Patient underwent a CT Panorex yesterday, dental clearance pending. 5. Continue ampicillin and Rocephin per infectious disease recommendations. 6. Bedside FEV1 on 01/24/2022 showed a predicted value of 38%. Bronchodilator management per pulmonary critical care service recommendations. 7. Diabetes management and other comorbidities per primary care service recommendations. 8. GI and DVT prophylaxis. 9. Per discussion with Dr. Molina and Dr. Mejia the patient will undergo a cardiac catheterization tomorrow 01/28/2022. 10. We will continue to monitor and follow this patient to determine the best course of action based on his clinical course. Time with Patient: Greater than 30
[2022-01-27] MEDS: DOXAZOSIN 4 MG TAB PO SCH ×2 (09:14→20:33)
[2022-01-27] MEDS: FUROSEMIDE 40 MG TAB PO SCH (09:14)
[2022-01-27] MEDS: amLODIPine 5 MG TAB PO SCH ×2 (09:14→20:33)
[2022-01-27] MEDS: hydrALAZINE HCL 50 MG TAB PO SCH ×3 (09:14→17:09)
[2022-01-27] MEDS: LOSARTAN 50 MG TAB PO SCH (09:14)
[2022-01-27] MEDS: PANTOPRAZOLE 40 MG TABLET PO SCH (09:15)
[2022-01-27] MEDS: ASPIRIN 325 MG TAB PO SCH (09:15)
[2022-01-27] MEDS: MUPIROCIN 2% OINT 22 GM TUBE NASAL SCH ×2 (09:16→20:34)
[2022-01-27] MEDS: GLIMEPIRIDE 2 MG TAB PO SCH ×2 (09:31→20:21)
[2022-01-27] MEDS: DAPAGLIFLOZIN PROPANEDIOL 10 MG TABLET PO SCH (09:31)
[2022-01-27] MEDS: SENNOSIDES-DOCUSATE SODIUM 1 EACH TAB PO SCH (09:32)
[2022-01-27] MEDS: HEPARIN SODIUM,PORCINE/PF 5,000 UNIT/0.5 ML SYRINGE SQ SCH ×2 (10:15→20:33)
[2022-01-27] MEDS: CALCIUM CARBONATE 500 MG CHEWABLE PO SCH ×2 (10:16→12:16)
[2022-01-27] MEDS ORDERED: IV FLUID CONTINUATION 1,000 ML IV ONE (10:44)
[2022-01-27] MEDS ORDERED: VERAPAMIL 2.5 MG/ML 2 ML AMP ONE (11:01)
[2022-01-27] MEDS ORDERED: fentaNYL (PF) 50 MCG/ML 2 ML AMP ONE (11:01)
[2022-01-27] MEDS ORDERED: HEPARIN SODIUM 1,000 UN/ML (10ML VL) ONE (11:01)
[2022-01-27] MEDS ORDERED: fentaNYL (PF) 50 MCG/ML 2 ML AMP IV ONE (11:05)
[2022-01-27] MEDS ORDERED: LIDOCAINE 1% INJ 10MG/ML (30 ML VIAL-PF) SQ ONE (11:05)
[2022-01-27] MEDS ORDERED: VERAPAMIL SYRINGE (5 MG/10 ML) INTRAARTER ONE (11:06)
[2022-01-27] MEDS ORDERED: HEPARIN SODIUM 1,000 UN/ML (10ML VL) IV ONE (11:17)
[2022-01-27] MEDS ORDERED: IOPAMIDOL-370 125ML BTL INJ ONE ×2 (11:25→11:28)
[2022-01-27] MEDS: SYMBICORT 160-4.5 MCG INHALER INHALATION SCH ×2 (11:33→21:16)
[2022-01-27] MEDS ORDERED: RX INFO: IV CONTRAST WAS GIVEN 1 EACH MISC MISCELLANE PRN (11:35)
--- NOTE | 2022-01-27 11:41 | P.CARDCATH ---
Date of Procedure: 01/27/22 Description of Procedure: Cardiac Catheterization: The patient is a 76-year-old male with a known history of aortic valve replacement presented with endocarditis and evidence of AV block. He had a temporary pacemaker placed on Friday but there is loss of capture. Patient is being evaluated for redo aortic valve replacement. Recommendations were made regarding cardiac catheterization, the risks and the complications were discussed with the patient who is in full understanding and agreement. Procedure Description: Patient was brought to field laborer in fasting semi-sedated state after receiving Fentanyl and Benadryl achieiving moderate conscious sedated state. Using Xylocaine Anesthesia and Seldinger technique, a 6-Bengali sheath was introduced in the right radial artery . Following that the temporary pacemaker was removed from the right femoral vein and a new temporary pacemaker was introduced, p ositioned and pacing parameters were obtained. It was secured in place. Subsequently, selective coronary angiography was performed using a 5-Bengali 3.5 bend Gerald catheter. Multiple views of the coronary artery including hemiaxial views were obtained. Following that, catheter and sheath were removed. Hemostasis was obtained with deployment of TR band . There was no immediate complication. Patient was returned to room in stable condition. Of note, the patient received a total of 5000 units of intravenous heparin as well as intra- arterial verapamil. Findings: Left main: This is a short sized vessel, bifurcating into left circumflex and LAD, left main has no high-grade stenosis LAD: This is a large size vessel, reaching to the apex, giving rise to 2 diagonal branches, the LAD and its branches have no evidence of high-grade stenosis Left circumflex: This is a codominant large size vessel giving rise to a large proximal obtuse marginal branch, distally bifurcating into PDA and PLV, the left circumflex has no high-grade stenosis RCA: This is a codominant vessel, moderate in caliber and has diffuse intimal disease in the midsegment of 50% with no high-grade stenosis Conclusion: 1. Moderate disease in the mid RCA 2. No evidence of high-grade stenosis in the LAD and left circumflex 3. Placement of a temporary pacemaker Recommendations: The patient will undergo evaluation for redo aortic valve replacement because of the endocarditis and evidence of new AV block. The findings and the recommendations were discussed with the patient and the family and they were in full understanding and agreement. Duration of sedation is 25 minutes.
[2022-01-27] MEDS ORDERED: SODIUM CHLORIDE 0.9% 1,000 ML IV SCH (11:45)
[2022-01-27 12:11] LABS: Glucose,Whole Blood 112 mg/dL (70-110)
[2022-01-27] MEDS: TAMSULOSIN 0.4 MG CAP.ER.24H PO SCH (12:16)
[2022-01-27] MEDS: MAGNESIUM OXIDE 400 MG TAB PO SCH (12:16)
[2022-01-27] MEDS: MONTELUKAST 10 MG TAB PO SCH (12:16)
[2022-01-27] MEDS: FINASTERIDE 5 MG TAB PO SCH (12:17)
[2022-01-27] MEDS: allopurinoL 100 MG TAB PO SCH (12:17)
--- NOTE | 2022-01-27 12:18 | P.PN ---
Subjective Progress Note Date: 01/27/22 Principal diagnosis: Acute infectious endocarditis This is a 76-year-old white male with history of multiple medical problems including hypertension, diabetes with diabetic polyneuropathy, dyslipidemia, history of COPD and he normally sees Dr. Ferreira for his COPD. Patient is also known to have history of obstructive sleep apnea syndrome, and melanoma resected from the back previously. Patient was admitted to [facility] back on 01/20/22, he was basically admitted with mental status change, or, and tachycardia. Patient had a previous history of aortic valve replacement in 2018, and patient was noted to have positive blood cultures for enterococcus faecalis. Continued to have positive blood cultures, he was seen by cardiology, and on 01/22, the patient underwent REESE which clearly confirmed vegetations on the aortic valve. It was reported as a small aortic valve vegetation present on a bioprosthetic aortic valve. His REESE also showed moderate mitral regurgitation and moderate tricuspid regurgitation. Patient was seen by infectious disease, started on broad-spectrum antibiotics, and no major arrhythmias noted until today. On telemetry monitoring, the patient was noted to have high grade AV block's with some bradycardia. He was also noted to have progression of his AV block's, and PVCs consistent with extension of the infection into the septal myocardium. Hence arrangements were made to transfer the patient to [facility] to be seen by the cardiothoracic surgical team. In the meantime the patient has been on Rocephin and ampicillin and vancomycin. Again infectious disease service is addressing the antibiotics accordingly. I saw the patient upon arrival to the ICU, he seems to be fairly comfortable, not in any distress, and hemodynamically stable. Patient is noted to have intermittently high-grade AV blocks, and cardiology will be evaluating the patient while in the ICU shortly. Cardiac consultation is pending. Labs were reviewed WBC count is 9.7 hemoglobin is 11.7 a left was are normal renal profile is normal, urinalysis is unremarkable. Patient was reevaluated today on 01/25/22 patient remains in the ICU, remains on broad-spectrum antibiotics, he is hemodynamically stable, not in any form of distress, not requiring any pressors or any inotropes. Remains on ampicillin and Rocephin as recommended by infectious disease for his Enterococcus faecalis endocarditis. His labs today are basically unremarkable. Patient is being considered for surgical intervention by cardiothoracic surgery. Labs today were basically unremarkable including relatively normal CBC and normal basic metabolic profile Reevaluated today on 01/26/22, patient remains in the ICU, has been seen by many consultants, patient is to be seen by thoracic surgery today, apparently cardiology declined repeating is REESE, and felt very confident that the patient has endocarditis, and no need to repeat his REESE. Patient is being considered for transfer to another tertiary care center but he is yet to be seen by cardiothoracic surgery. In the meantime the patient seems to be hemodynamically stable, he is on room air, not in any distress. Reevaluated today on 01/27/22, patient is in the ICU, scheduled to undergo cardiac catheterization today. Patient is being worked up and possibly to undergo redo aortic valve replacement because of the endocarditis and he had evidence of new AV block. Today the patient will likely have placement of a temporary pacemaker since his previous temporary pacemaker is nonfunctional. Patient denies any pulmonary symptoms. No cough no wheezing no shortness of breath. Objective - Vital Signs Vital signs: Vital Signs Temp 98.7 F 01/27/22 08:00 Pulse 56 L 01/27/22 10:00 Resp 10 L 01/27/22 10:00 BP 148/86 01/27/22 10:00 Pulse Ox 94 L 01/27/22 10:00 FiO2 Intake & Output 01/26/22 01/27/22 01/27/22 18:59 06:59 18:59 Intake Total 680 580 340 Output Total 3585 1100 550 Balance -2905 -520 -210 Weight 108 kg Intake: IV 680 580 340 0.9NS 330 330 90 Ampicillin 2,000 mg In 300 200 100 Sodium Chloride 0.9% 100 ml @ 200 mls/hr IVPB Q4HR [facility]ATA Rx#:[id number] cefTRIAXone 2 gm In 50 50 50 Sodium Chloride 0.9% 50 ml @ 100 mls/hr IVPB Q12HR AGATA Rx#:[id number] Output: Urine 3585 1100 550 Other: Voiding Method Urinal Urinal Urinal # Voids 1 1 # Bowel Movements 1 - Exam Physical Exam: Revealed a 76-year-old white male in no distress, on room air. Head: Atraumatic, normocephalic. HEENT:[Neck is supple.] [No neck masses.] [No thyromegaly.] [No JVD.] Chest: [Clear throughout, no crackles, no rhonchi, no wheezes.] Cardiac Exam: Distant S1 and S2, positive aortic valve click, and systolic ejection murmur best heard over the aortic area Abdomen: [Obese, Soft, nontender, no megaly, no rebound, no guarding, normal bowel sounds.] Extremities: [No clubbing, no edema, no cyanosis.] Good pulses bilaterally Neurological Exam: Alert and oriented 3. [No focal neurologic deficit.] Psychiatric: Normal mood affect and normal mental status examination. Skin no rashes and no petechiae - Labs CBC & Chem 7: 01/27/22 05:25 01/27/22 05:25 Labs: Abnormal Lab Results - Last 24 Hours (Table) 01/26/22 01/26/22 01/26/22 Range/Units 13:51 17:25 20:12 RBC (4.30-5.90) m/uL Hgb (13.0-17.5) gm/dL Hct (39.0-53.0) % POC Glucose (mg/dL) 219 H 209 H 159 H (70-110) mg/dL Calcium (8.4-10.2) mg/dL 01/27/22 01/27/22 01/27/22 Range/Units 05:25 05:25 12:10 RBC 3.64 L (4.30-5.90) m/uL Hgb 11.2 L (13.0-17.5) gm/dL Hct 33.9 L (39.0-53.0) % POC Glucose (mg/dL) 112 H (70-110) mg/dL Calcium 8.1 L (8.4-10.2) mg/dL Microbiology - Last 24 Hours (Table) 01/24/22 15:19 Blood Culture - Preliminary Blood No Growth after 48 hours 01/24/22 15:19 Blood Culture - Preliminary Blood No Growth after 48 hours Assessment and Plan Assessment: Impression: 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 Repeat blood cultures have been negative since transfer to [facility]. 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 Lopez Recommendation: Cardiac catheterization today and possibly replacement of his temporary pacemak er with another temporary pacemaker today. Continue to monitor in the ICU Continue incentive spirometry. Continue antibiotics, as there infectious disease on the case. Patient is on ampicillin, high dose, and Rocephin. Bronchodilators for his underlying COPD including DuoNeb and Symbicort GI and DVT prophylaxis. We will continue to follow. Time with Patient: Less than 30
[2022-01-27] MEDS: SODIUM CHLORIDE 0.9% 1,000 ML in EMPTY BAG 1 BAG IV SCH ×2 (12:36→18:22)
[2022-01-27 16:49] LABS: Glucose,Whole Blood 196 mg/dL (70-110)
[2022-01-27 20:15] LABS: Glucose,Whole Blood 192 mg/dL (70-110)
[2022-01-27] MEDS: ATORVASTATIN 40 MG TAB PO SCH (20:33)
[2022-01-27] MEDS: INSULIN DETEMIR (LEVEMIR) 100 UNIT/ML SYR SQ SCH (20:34)
--- NOTE | 2022-01-28 00:16 | P.PN ---
Subjective Progress Note Date: 01/26/22 Principal diagnosis: Endocarditis Patient is a 76-year old male with Enterococcus faecalis bacteremia secondary to bioprosthetic aortic valve endocarditis developing his rhythm abnormality concern for possible aortic root abscess for the patient was transferred to this facility, patient is status post temporary pacemaker placement by cardiology on 01/25/2022. On today's evaluation that is 01/26/2022 the patient denies having any fever or any chills, patient is breathing comfortably denies having any chest pain shortness of breath or cough no abdominal pain or diarrhea Objective - Vital Signs Vital signs: Vital Signs Temp 98.2 F 01/26/22 04:00 Pulse 68 01/26/22 08:13 Resp 13 01/26/22 07:00 BP 142/72 01/26/22 07:00 Pulse Ox 91 L 01/26/22 07:00 FiO2 Intake & Output 01/25/22 01/26/22 01/26/22 18:59 06:59 18:59 Intake Total 1275 360 30 Output Total 1500 975 275 Balance -225 -615 -245 Weight 108 kg Intake: IV 555 360 30 0.9NS 180 360 30 Ampicillin 2,000 mg In 300 Sodium Chloride 0.9% 100 ml @ 200 mls/hr IVPB Q4HR AGATA Rx#:[id number] cefTRIAXone 2 gm In 50 Sodium Chloride 0.9% 50 ml @ 100 mls/hr IVPB Q12HR AGATA Rx#:[id number] Oral 720 Output: Urine 1500 975 275 Other: Voiding Method Urinal External Catheter # Voids 1 - Exam GENERAL DESCRIPTION: Elderly male lying in bed, no distress. No tachypnea or a ccessory muscle of respiration use. LUNGS: Unlabored breathing. Decreased breath sound at the base HEART: S1, S2, regular rate and rhythm. No loud murmur ABDOMEN: Soft, no tenderness , guarding or rigidity, no organomegaly EXTREMITIES: No edema of feet. - Labs CBC & Chem 7: 01/27/22 05:25 01/27/22 05:25 Labs: Abnormal Lab Results - Last 24 Hours (Table) 01/25/22 01/25/22 Range/Units 16:51 21:04 POC Glucose (mg/dL) 232 H 264 H (70-110) mg/dL Microbiology - Last 24 Hours (Table) 01/24/22 15:19 Blood Culture - Preliminary Blood No Growth after 24 hours 01/24/22 15:19 Blood Culture - Preliminary Blood No Growth after 24 hours 01/24/22 14:44 Nasal Screen MRSA/MSSA - Final Nasal Swab Assessment and Plan (1) Endocarditis Current Visit: Yes Status: Acute Code(s): I38 - ENDOCARDITIS, VALVE UNSPECIFIED SNOMED Code(s): 22288274 Plan: 1-patient with Enterococcus faecalis bacteremia secondary to bioprosthetic aortic valve endocarditis now with development of complication with bradycardia arrhythmia concerning for aortic root abscess s/p temporary pacemaker placement patient benefit from repeat REESE to better define underlying pathology, Patient is currently being treated with ampicillin and Rocephin to continue and monitor clinical course closely Time with Patient: Less than 30
--- NOTE | 2022-01-28 00:17 | P.PN ---
Subjective Progress Note Date: 01/27/22 Principal diagnosis: Endocarditis Patient is a 76-year old male with Enterococcus faecalis bacteremia secondary to bioprosthetic aortic valve endocarditis developing his rhythm abnormality concern for possible aortic root abscess for the patient was transferred to this facility, patient is status post temporary pacemaker placement by cardiology on 01/25/2022.Patient is status postcardiac cath completed on 01/27/2022 with evidence of moderate disease in mid RCA. On today's evaluation that is 01-27-2022 the patient remains to be afebrile, the patient is breathing comfortably he did have occasional cough but not bringing up any sputum no nausea no vomiting no abdominal pain no diarrhea Objective - Vital Signs Vital signs: Vital Signs Temp 98.7 F 01/27/22 08:00 Pulse 70 01/27/22 14:00 Resp 14 01/27/22 14:00 BP 151/76 01/27/22 14:00 Pulse Ox 95 01/27/22 14:00 FiO2 Intake & Output 01/26/22 01/27/22 01/27/22 18:59 06:59 18:59 Intake Total 680 580 340 Output Total 3585 1100 550 Balance -2905 -520 -210 Weight 108 kg Intake: IV 680 580 340 0.9NS 330 330 90 Ampicillin 2,000 mg In 300 200 100 Sodium Chloride 0.9% 100 ml @ 200 mls/hr IVPB Q4HR [facility] Rx#:[id number] cefTRIAXone 2 gm In 50 50 50 Sodium Chloride 0.9% 50 ml @ 100 mls/hr IVPB Q12HR [facility] Rx#:[id number] Output: Urine 3585 1100 550 Other: Voiding Method Urinal Urinal Urinal # Voids 1 1 # Bowel Movements 1 - Exam GENERAL DESCRIPTION: Elderly male lying in bed, no distress. No tachypnea or accessory muscle of respiration use. LUNGS: Unlabored breathing. Decreased breath sound at the base HEART: S1, S2, regular rate and rhythm. No loud murmur ABDOMEN: Soft, no tenderness , guarding or rigidity, no organomegaly EXTREMITIES: No edema of feet. - Labs CBC & Chem 7: 01/27/22 05:25 01/27/22 05:25 Labs: Abnormal Lab Results - Last 24 Hours (Table) 01/26/22 01/26/22 01/27/22 Range/Units 17:25 20:12 05:25 RBC 3.64 L (4.30-5.90) m/uL Hgb 11.2 L (13.0-17.5) gm/dL Hct 33.9 L (39.0-53.0) % POC Glucose (mg/dL) 209 H 159 H (70-110) mg/dL Calcium (8.4-10.2) mg/dL 01/27/22 01/27/22 Range/Units 05:25 12:10 RBC (4.30-5.90) m/uL Hgb (13.0-17.5) gm/dL Hct (39.0-53.0) % POC Glucose (mg/dL) 112 H (70-110) mg/dL Calcium 8.1 L (8.4-10.2) mg/dL Microbiology - Last 24 Hours (Table) 01/24/22 15:19 Blood Culture - Preliminary Blood No Growth after 48 hours 01/24/22 15:19 Blood Culture - Preliminary Blood No Growth after 48 hours Assessment and Plan (1) Endocarditis Current Visit: Yes Status: Acute Code(s): I38 - ENDOCARDITIS, VALVE UNSPECIFIED SNOMED Code(s): 42579015 Plan: 1-patient with Enterococcus faecalis bacteremia secondary to bioprosthetic aortic valve endocarditis now with development of complication with bradycardia arrhythmia concerning for aortic root abscess s/p temporary pacemaker placement And the patient is status postcardiac cath completed on 01/27/2022 in preparation for aortic valve surgery, patient to continue with ampicillin and Rocephin blood culture has been negative so far and monitor clinical course closely Time with Patient: Less than 30
[2022-01-28] MEDS: AMPICILLIN 2,000 MG in SODIUM CHLORIDE 0.9% 100 ML IVPB SCH ×7 (00:47→23:12)
[2022-01-28 03:44] LABS: Calcium 8.2 mg/dL (8.4-10.2); Potassium 4.3 mmol/L (3.5-5.1)
[2022-01-28] MEDS: SODIUM CHLORIDE 0.9% 1,000 ML in EMPTY BAG 1 BAG IV SCH ×3 (03:50→23:15)
[2022-01-28 04:58] LABS: Basophils # (A) 0.1 k/uL (0-0.2); Basophils % (A) 1 %; Eosinophils # (A) 0.1 k/uL (0-0.7); Eosinophils % (A) 2 %; HCT 35.1 % (39.0-53.0); HGB 11.5 gm/dL (13.0-17.5); Hypochromasia Slight; Lymphocytes % (A) 15 %; MCH 31.1 pg (25.0-35.0); MCHC 32.8 g/dL (31.0-37.0); MCV 94.6 fL (80.0-100.0); Mean Platelet Volume 9.1; Monocytes # (A) 0.4 k/uL (0-1.0); Monocytes % (A) 6 %; Neutrophils # (A) 4.7 k/uL (1.3-7.7); Neutrophils % (A) 75 %; Platelet Count 235 k/uL (150-450); RBC 3.72 m/uL (4.30-5.90); RDW 14.1 % (11.5-15.5); WBC 6.4 k/uL (3.8-10.6)
[2022-01-28 06:44] LABS: Glucose,Whole Blood 126 mg/dL (70-110)
[2022-01-28] MEDS: INSULIN ASPART (NovoLOG) 100 UNIT/ML VIAL SQ SCH ×4 (07:09→21:16)
[2022-01-28] MEDS: ACETAMINOPHEN TAB 325 MG TAB PO PRN ×2 (07:12→21:32)
[2022-01-28] MEDS: PANTOPRAZOLE 40 MG TABLET PO SCH (07:12)
[2022-01-28] MEDS: hydrALAZINE HCL 50 MG TAB PO SCH ×3 (07:13→17:19)
--- NOTE | 2022-01-28 07:51 | P.PN ---
Subjective Progress Note Date: 01/28/22 Principal diagnosis: This is a 76-year-old gentleman who follows on an outpatient basis with Dr. Parish for his primary care service and with Dr. Cárdenas for his cardiology care. He has a past medical history significant for hypertension, hyperlipidemia, history of severe aortic valve stenosis status post aortic valve replacement with a 23 mm Inspiris bioprosthetic aortic valve, insulin-dependent diabetes mellitus type 2, sleep apnea without any home CPAP use, COPD, asthma, gout, obesity with a BMI of 32.9 kg/m, remote history of non-ST elevated myocardial infarction in October 2017 with an RCA stenosis of 30-40% at that time, benign prostatic hypertrophy, recent removal of melanoma to his back and a remote history of nicotine dependence in which he quit smoking in the early . On 01/17/2022 the patient presented to the emergency department at [facility] due to some disorientation and mental status changes. He denies any recent nausea, vomiting, fever, chills, cough, palpitations, presyncope, syncope, headache, chest pain or chest pressure. He reports that recently he has been having some burning sensation with urinating which started around 5 weeks ago. According to his chart from [facility] his initial urinalysis was negative for any organism although a repeat urinalysis showed positive for an enterococcus species according to the infectious disease note from [facility]. Due to the patient's mental status changes a computed tomography scan of his brain was completed which did not show any evidence of acute infarct or bleed. A computed tomography scan of his chest, abdomen and pelvis was also completed which showed some apparent perinephritic fat stranding without evidence of hydronephrosis, evidence of sigmoid diverticulosis without diverticulitis, cardiomegaly with bilateral pleural effusions and possible pulmonary fibrosis. The computed tomography scan of his cervical spine showed evidence of spondylosis of the cervical spine without evidence of fracture. Initial laboratory results on 01/17/2022 showed a WBC count of 10.3, hemoglobin 13.6, hematocrit 40.4, platelets 147, sodium 132, po tassium 4.3, chloride 99, CO2 21.3, BUN 24, creatinine 1.4, glucose 161, calcium 8.7, AST 32, ALT 66, troponin was slightly elevated at 96 and his following troponins were slightly higher at 107, BNP 1005, CRP 12.9, lactic acid 1.1, PT 11.5, and INR 1.12. A 12-lead EKG was completed which showed normal sinus rhythm with a first-degree AV block with a heart rate of 90 BPM. According to the patient's chart from [facility] the patient did have blood cultures positive for enterococcus faecalis and was subsequently started on ampicillin and Rocephin for antibiotic treatment. Due to the patient's history of aortic valve replacement and positive blood cultures a transthoracic 2-D echocardiogram was completed. The 2-D echocardiogram showed a bioprosthetic aortic valve to be present, normal prosthetic aortic valve gradient, no aortic valve regurgitation and no aortic valvular stenosis. It also showed mild mitral annular calcification with mild to moderate mitral valve regurgitation, no mitral valve stenosis, mild tricuspid valve regurgitation, trace pulmonic valve regurgitation, aortic root to be normal in size, no pericardial effusion and his left ventricular systolic function to be normal with a left ventricular ejection fraction of 55%. For further evaluation the patient underwent a transesophageal echocardiogram on 01/22/2022 which demonstrated his left ventricular systolic function to be normal with a left ventricular ejection fraction to be 55-60%, a bioprosthetic aortic valve to be present, no aortic valve regurgitation, a small aortic valve vegetation present measuring 0.53 cm, mitral annular calcification, moderate mitral valve regurgitation, mild to moderate tricuspid valve regurgitation, ascending aorta to be normal in size, the ascending aorta to be normal in caliber and no pericardial effusion. Subsequently, due to the findings of a vegetation present on his bioprosthetic aortic valve a consult was placed to Dr. Omi Molina from cardiothoracic surgery for further evaluation and treatment recommendations. Status post day #3 temporary pacemaker placement by Dr. Cárdenas. The patient was seen in follow-up today 01/28/2022 at his bedside in the intensive care unit. Currently the patient is laying in bed in the intensive care unit, he is awake, alert, oriented 3 and is in no acute distress. Denies any complaints of shortness of breath or chest pain at this time although is complaining of some minor lower back pain from being in bed. Bedside telemetry is showing paced rhythm at 70 bpm with occasional junctional beats. Oxygen satu ration are 97% on room air and he is achieving 2250 mL on his incentive spirometry with encouragement. He underwent a cardiac catheterization yesterday performed by Dr. Cárdenas which demonstrated diffuse intimal disease in the midsegment of 50% with no high-grade stenosis to his right coronary artery, no evidence of high-grade stenosis in the LAD or circumflex coronary arteries and placement of temporary pacemaker. Laboratory results show a WBC count of 6.4, hemoglobin 11.5, hematocrit 35.1, platelets 235, sodium 137, potassium 4.3, BUN 13, creatinine 0.95, glucose 99, and calcium 8.2. Blood cultures from 01/24/2022 remaining showing no growth after 72 hours. He remains on ampicillin and Rocephin for history of bacteremia with enterococcus faecalis which is being managed by infectious disease. He's been afebrile the last 24 hours. A bedside FEV1 was repeated yesterday which showed a predicted value of 59% with a base volume of 1.75 L. Objective - Vital Signs Vital signs: Vital Signs Temp 99.1 F 01/28/22 00:00 Pulse 70 01/28/22 07:00 Resp 16 01/28/22 07:00 BP 124/78 01/28/22 07:00 Pulse Ox 94 L 01/28/22 07:00 FiO2 Intake & Output 01/27/22 01/28/22 01/28/22 18:59 06:59 18:59 Intake Total 900 760 30 Output Total 2150 875 Balance -1250 -115 30 Weight 109.6 kg Intake: IV 900 760 30 0.9NS 450 360 30 Ampicillin 2,000 mg In 300 300 Sodium Chloride 0.9% 100 ml @ 200 mls/hr IVPB Q4HR [facility] Rx#:[id number] cefTRIAXone 2 gm In 50 100 Sodium Chloride 0.9% 50 ml @ 100 mls/hr IVPB Q12HR [facility] Rx#:[id number] Output: Urine 2150 875 Other: Voiding Method Urinal External Catheter # Voids 1 0 0 # Bowel Movements 1 - Exam CONSTITUTIONAL: Sitting up in bed in the intensive care unit, appears comfortable, cooperative, no apparent acute distress. Complaining of some minimal lower back pain. HEENT: Neck is supple, no JVD, no lymphadenopathy. RESPIRATORY: Lungs sounds essentially clear throughout, diminished to his bilateral bases. Respirations are symmetrical and nonlabored. Currently on room air with oxygen saturations 97%. Able to achieve 2250 mL on his incentive spirometry. Strong cough. CARDIOVASCULAR: Regular rhythm and controlled rate. S1 and S2 present, negative for S3, or gallop. Soft systolic murmur heard best at base. Palpable peripheral pulses bilaterally, trace edema to his bilateral lower extremities. No calf pain or tenderness noted. Sequential compression devices in place to his bilateral lower extremities. GASTROINTESTINAL: Abdomen soft, nontender, nondistended. Active bowel sounds present 4 quadrants. Tolerating diet. Passing flatus. No guarding or rigidity. Bowel movement yesterday 01/27/2022. GENITOURINARY: Continues to void, external catheter in place. 550 mL of urine output in the last 8 hours. INTEGUMENTARY: Skin is warm and dry with no evidence of clubbing or cyanosis. MUSKULOSKELETAL: Able to move all extremities, strength equal bilaterally. PSYCHIATRIC: Alert and oriented to person place and time, appropriate affect, intact judgment and insight. INVASIVE LINES AND TUBES: Right groin transvenous pacer in place and connected to back up to bedside pacemaker generator on a VVI 70 BPM with ma of 3. - Allied health notes Allied health notes reviewed: nursing - Labs CBC & Chem 7: 01/28/22 03:12 01/28/22 03:12 Labs: Abnormal Lab Results - Last 24 Hours (Table) 01/27/22 01/27/22 01/27/22 Range/Units 12:10 16:48 20:03 RBC (4.30-5.90) m/uL Hgb (13.0-17.5) gm/dL Hct (39.0-53.0) % POC Glucose (mg/dL) 112 H 196 H 192 H (70-110) mg/dL Calcium (8.4-10.2) mg/dL 01/28/22 01/28/22 01/28/22 Range/Units 03:12 03:12 06:43 RBC 3.72 L (4.30-5.90) m/uL Hgb 11.5 L (13.0-17.5) gm/dL Hct 35.1 L (39.0-53.0) % POC Glucose (mg/dL) 126 H (70-110) mg/dL Calcium 8.2 L (8.4-10.2) mg/dL Microbiology - Last 24 Hours (Table) 01/24/22 15:19 Blood Culture - Preliminary Blood No Growth after 72 hours 01/24/22 15:19 Blood Culture - Preliminary Blood No Growth after 72 hours Assessment and Plan Assessment: 1. Bacteremia with positive blood cultures showing enterococcus faecalis 2. Small aortic valve vegetation as evidence on transesophageal echocardiogram 3. Moderate mitral valve regurgitation on transesophageal echocardiogram 4. Possible urinary tract infection, history of UTI in the past with pseudomonas aeruginosa in January 2020 5. History of severe aortic valve stenosis, status post aortic valve replacement with a 23 mm Inspiris bioprosthetic aortic valve in November 2017 6. Cardiac arrhythmia, with telemetry showing junctional rhythm at this time and second degree AV block, status post transvenous temporary pacemaker placement by Dr. Cárdenas 7. Hypertension 8. Hyperlipidemia 9. History of coronary artery disease with a 30-40% stenosis to his mid right coronary artery in October 2017 10. Insulin-dependent diabetes mellitus type 2 11. Obesity with a BMI of 32.9 kg/m 12. Obstructive sleep apnea without CPAP use 13. COPD 14. History of asthma 15. Remote history of nicotine dependence quit smoking in 1992 16. Altered mental status, resolved 17. Benign prostatic hypertrophy 18. History of gout 19. Slight elevated velocities in the internal carotid arteries bilaterally suggestive of 50-70% stenosis 20. Coronary artery disease with moderate disease in the mid right coronary artery of 50% with no high-grade stenosis, status post heart catheterization yesterday 01/27/[address] Cárdenas Plan: 1. Continue to monitor results of blood cultures sent yesterday 01/24/2022. No growth after 72 hours. 2. Cardiac rhythm management per cardiology recommendations. Transvenous temporary pacemaker placed on 01/25/[address] Cárdenas. 3. Encourage use of his incentive spirometry 10 times every hour while awake. Bedside FEV1 repeated yesterday which showed a predicted value of 59% with a base volume of 1.75 L. 4. Patient underwent a CT Panorex yesterday, dental clearance pending. 5. Continue ampicillin and Rocephin per infectious disease recommendations. 6. Bedside FEV1 on 01/24/2022 showed a predicted value of 38%. Bronchodilator management per pulmonary critical care service recommendations. 7. Diabetes management and other comorbidities per primary care service recommendations. 8. GI and DVT prophylaxis. 9. Patient underwent a cardiac catheterization yesterday by Dr. Cárdenas. 10. We will continue to monitor and follow this patient to determine the best course of action based on his clinical course. Time with Patient: Greater than 30
[2022-01-28] MEDS: SYMBICORT 160-4.5 MCG INHALER INHALATION SCH ×2 (07:55→20:01)
[2022-01-28] MEDS: SENNOSIDES-DOCUSATE SODIUM 1 EACH TAB PO SCH (08:07)
[2022-01-28] MEDS: CALCIUM CARBONATE 500 MG CHEWABLE PO SCH ×2 (08:07→21:16)
[2022-01-28] MEDS: MONTELUKAST 10 MG TAB PO SCH (08:07)
[2022-01-28] MEDS: allopurinoL 100 MG TAB PO SCH (08:08)
[2022-01-28] MEDS: LOSARTAN 50 MG TAB PO SCH (08:08)
[2022-01-28] MEDS: MAGNESIUM OXIDE 400 MG TAB PO SCH (08:08)
[2022-01-28] MEDS: ASPIRIN 81 MG PO SCH (08:08)
[2022-01-28] MEDS: amLODIPine 5 MG TAB PO SCH ×2 (08:08→21:16)
[2022-01-28] MEDS: FUROSEMIDE 40 MG TAB PO SCH (08:09)
[2022-01-28] MEDS: TAMSULOSIN 0.4 MG CAP.ER.24H PO SCH (08:09)
[2022-01-28] MEDS: HEPARIN SODIUM,PORCINE/PF 5,000 UNIT/0.5 ML SYRINGE SQ SCH ×2 (08:09→21:17)
[2022-01-28] MEDS: DAPAGLIFLOZIN PROPANEDIOL 10 MG TABLET PO SCH (08:33)
[2022-01-28] MEDS: GLIMEPIRIDE 2 MG TAB PO SCH ×2 (08:33→21:32)
[2022-01-28] MEDS: DOXAZOSIN 4 MG TAB PO SCH ×2 (08:33→21:32)
[2022-01-28] MEDS: MUPIROCIN 2% OINT 22 GM TUBE NASAL SCH ×2 (08:34→21:45)
[2022-01-28] MEDS: FINASTERIDE 5 MG TAB PO SCH (08:34)
[2022-01-28 11:44] LABS: Glucose,Whole Blood 208 mg/dL (70-110)
--- NOTE | 2022-01-28 12:26 | P.PN ---
Subjective Progress Note Date: 01/28/22 Principal diagnosis: Endocarditis. Patient was reevaluated today on 01/25/22 patient remains in the ICU, remains on broad-spectrum antibiotics, he is hemodynamically stable, not in any form of distress, not requiring any pressors or any inotropes. Remains on ampicillin and Rocephin as recommended by infectious disease for his Enterococcus faecalis endocarditis. His labs today are basically unremarkable. Patient is being considered for surgical intervention by cardiothoracic surgery. Labs today were basically unremarkable including relatively normal CBC and normal basic metabolic profile Reevaluated today on 01/26/22, patient remains in the ICU, has been seen by many consultants, patient is to be seen by thoracic surgery today, apparently cardiology declined repeating is REESE, and felt very confident that the patient has endocarditis, and no need to repeat his REESE. Patient is being considered for transfer to another tertiary care center but he is yet to be seen by cardiothoracic surgery. In the meantime the patient seems to be hemodynamically stable, he is on room air, not in any distress. Reevaluated today on 01/27/22, patient is in the ICU, scheduled to undergo cardiac catheterization today. Patient is being worked up and possibly to undergo redo aortic valve replacement because of the endocarditis and he had evidence of new AV block. Today the patient will likely have placement of a temporary pacemaker since his previous temporary pacemaker is nonfunctional. Patient denies any pulmonary symptoms. No cough no wheezing no shortness of breath. Progress note dated 01/28/2022. This is a 76-year-old male who was admitted on January 24, with aortic valve endocarditis, secondary to enterococcus faecalis. The patient remains on antibiotics in the form of ampicillin and Rocephin. The patient is not receiving any supplemental oxygen. The patient is getting saline fluid, at 30 mL an hour. The patient may end up going to the operating room tomorrow for aortic valve replacement. The surgeon has not made up his mind as yet. He had a previous aortic valve replacement 4 years ago. Lab data includes a white count 6.4, hemoglobin 11.5, hematocrit 35.1, and normal platelet count. Electrolyte profile is completely normal. Calcium is 8.2. Blood cultures here are thus far negative. Objective - Vital Signs Vital signs: Vital Signs Temp 98.3 F 01/28/22 08:00 Pulse 75 01/28/22 11:00 Resp 17 01/28/22 11:00 BP 130/65 01/28/22 11:00 Pulse Ox 93 L 01/28/22 11:00 FiO2 Intake & Output 01/27/22 01/28/22 01/28/22 18:59 06:59 18:59 Intake Total 900 760 150 Output Total 2150 875 750 Balance -1250 -115 -600 Weight 109.6 kg Intake: IV 900 760 150 0.9NS 450 360 150 Ampicillin 2,000 mg In 300 300 Sodium Chloride 0.9% 100 ml @ 200 mls/hr IVPB Q4HR [facility] Rx#:[id number] cefTRIAXone 2 gm In 50 100 Sodium Chloride 0.9% 50 ml @ 100 mls/hr IVPB Q12HR [facility] Rx#:[id number] Output: Urine 2150 875 750 Other: Voiding Method Urinal External Catheter External Catheter # Voids 1 0 0 # Bowel Movements 1 1 - Exam No acute distress, oriented 3. Currently not requiring any supplemental ox ygen. HEENT examination is grossly unremarkable. Neck supple. Full range of motion. No adenopathy thyromegaly or neck vein distention. Cardiovascular examination reveals regular rhythm rate. S1-S2 normal. No S3 or S4. A soft systolic murmur is noted. Heart rate 75 bpm. Lungs reveal clear breath sounds. Breath sounds are equal bilaterally. No adventitious lung sounds including wheezes rhonchi or crackles. Saturations on room air are 94-95%. Abdomen soft bowel sounds are heard. No masses or tenderness. Extremities are intact. No cyanosis clubbing or edema. Skin is without rash or lesion. Neurologic examination is brief but nonfocal. - Labs CBC & Chem 7: 01/28/22 03:12 01/28/22 03:12 Labs: Abnormal Lab Results - Last 24 Hours (Table) 01/27/22 01/27/22 01/28/22 Range/Units 16:48 20:03 03:12 RBC (4.30-5.90) m/uL Hgb (13.0-17.5) gm/dL Hct (39.0-53.0) % POC Glucose (mg/dL) 196 H 192 H (70-110) mg/dL Calcium 8.2 L (8.4-10.2) mg/dL 01/28/22 01/28/22 01/28/22 Range/Units 03:12 06:43 11:42 RBC 3.72 L (4.30-5.90) m/uL Hgb 11.5 L (13.0-17.5) gm/dL Hct 35.1 L (39.0-53.0) % POC Glucose (mg/dL) 126 H 208 H (70-110) mg/dL Calcium (8.4-10.2) mg/dL Microbiology - Last 24 Hours (Table) 01/24/22 15:19 Blood Culture - Preliminary Blood No Growth after 72 hours 01/24/22 15:19 Blood Culture - Preliminary Blood No Growth after 72 hours Assessment and Plan Assessment: Acute aortic valve endocarditis, secondary to Enterococcus faecalis. Prior history of aortic valve replacement, 4 years ago for aortic stenosis. High-grade AV block, secondary to endocarditis. Acute encephalopathy, secondary to endocarditis and sepsis. History of COPD, stable. Essential hypertension. Type 2 diabetes mellitus. BPH. Seasonal ALLERGIC rhinitis. Plan: Plan dated 01/28/2022. The patient will be evaluated by the surgeon later today, and may end up going back to the operating room, for his aortic valve endocarditis. The patient's blood cultures at the outside hospital were positive for Enterococcus faecalis. Currently the cultures here are negative. The patient remains on ampicillin and Rocephin. We will continue to follow make recommendations along the way. Prognosis is guarded. Labs, x-rays, and medications are all reviewed. Time with Patient: Less than 30
--- NOTE | 2022-01-28 13:40 | US ---
EXAMINATION TYPE: US vein mapping BILAT DATE OF EXAM: 01/28/2022 7:51 AM COMPARISON: NONE CLINICAL HISTORY: pre op cardiac surgery. Pre-Op surgery SIDE PERFORMED: Bilateral TECHNIQUE: Lower extremity saphenous vein is examined and measured utilizing real time linear array sonography. Patient History: Smoker: Prior Heart Disease: Yes Previous DVT: No Vascular Surgery: Prev aortic valve replacement Discoloration: No Hypertension: Yes Diabetes: Yes Paralysis: No Varicosities: No Edema: No DUPLEX FINDINGS: Greater Saphenous: Color flow seen Measurements in mm: Right Greater Saphenous: Groin: Not visualized- arterial line in groin High Thigh: Not visualized- arterial line in groin Mid Thigh: 2.9 x 2.9 mm Above Knee: 2.6 x 2.8 mm Knee: 2.2 x 2.6 mm Below Knee: 2.6 x 29 mm Mid Calf: 1.9 x 2.0 mm At Ankle: 2.8 x 3.3 mm Left Greater Saphenous: Groin: 5.1 x 5.3 mm High Thigh: 4.0 x 3.8 mm Mid Thigh: 3.4 x 3.9 mm Above Knee: 3.5 x 3.9 mm Knee: 2.8 x 3.0 mm Below Knee: 2.9 x 2.9 mm Mid Calf: 2.6 x 2.9 mm At Ankle: 2.5 x 1.9 mm IMPRESSION: 1. Bilateral GSV measurements listed above. 2. Performing surgeon to determine viability as conduit.
--- NOTE | 2022-01-28 14:33 | P.PN ---
Subjective Progress Note Date: 01/28/22 HISTORY OF PRESENT ILLNESS This is a 76-year-old male patient with past medical history of hypertension with hypertensive cardiovascular disease, hyperlipidemia, diabetes mellitus type 2 with diabetic polyneuropathy, enlarged prostate, history of aortic valve disease status post aortic valve replacement with a 23 mm valve on 12/04/2017, prior to that, left heart catheterization revealed 30-40% stenosis in the RCA in 2018, history of melanoma status post resection 12/07/2021, from the back. Patient initially presented to [facility] with mental status changes with significant encephalopathy. CAT scan of the brain did not show any acute infarct or bleed. Patient did have leukocytosis and low-grade fever. He is status post IV fluid resuscitation, he was started on IV antibiotics initially in the form of Levaquin and subsequently changed to ampicillin and cef triaxone by Dr. Cunningham. EKG did not show any evidence of acute changes. CAT scan of the chest abdomen and pelvis showed some perinephric stranding without evidence of hydronephrosis, there was evidence of diverticulosis without diverticulitis. CAT scan of the chest showed evidence of cardiomegaly with bilateral pleural effusion and possible pulmonary fibrosis. CAT scan of the cervical spine did show evidence of spondylosis of cervical spine without evidence of fracture. CAT scan of the brain showed brain atrophy without evidence of acute infarct or bleed, small vessel disease present. Patient was initially admitted to [facility] where he was followed by infectious disease as well as cardiology. He underwent a REESE on 01/22 revealed left ventricular systolic function normal at 55-60%, small aortic valve vegetation was present measuring 0.53 cm. Patient has bioprosthetic aortic valve. Moderate MR, [id number] tricuspid regurgitation, no pericardial effusion. Patients blood cultures were positive for enterococcus species. Patient was in a sinus rhythm with a first-degree AV block but subsequently developed a high-grade AV block on 01/24 with progressive worsening of the AV block and PVCs. Patient is complaining of left lower rib cage chest discomfort. No palpitations or dizziness. Patient was then transferred to [facility] to be evaluated by cardiothoracic surgery team. Patient is seen today in the intensive care unit, consults added for cardiology, office rep, cardiothoracic surgery. 01/25: Patient is seen today in the ICU. He states he slept well last night. He states he is better able to take a deep breath with less pain on his left chest wall. He is able to reach 1500 MLS on incentive spirometry. He is complaining of tingling in bilateral feet. Has not had a bowel movement but feels that he needs to today. Senokot scheduled added. Blood sugar was low this morning and glimepiride decreased to 2 mg twice daily and Levemir decreased to 20 units. Patient has an external catheter in place draining clear emily urine. He has been evaluated by cardiology, cardiothoracic surgery and office rep. Cardiology is planning for temporary pacemaker. C plan to continue close monitoring in the intensive care unit, monitor results of the blood cultures.hest x-ray reveals postoperative changes similar to prior exam. There may be some interstitial changes. Carotid ultrasound reveals slight elevated velocity in the internal carotid arteries bilaterally suggestive of 50-70 percent stenosis. There is antegrade flow in the vertebral arteries. Panorex CAT scan completed without any significant abnormalities. Arterial ultrasound bilateral lower extremities revealed normal ankle brachial indices. 01/26: Patient is lying down in bed in no acute distress, yesterday underwent temporary TVP for 2nd degree AV block, plan is to repeat REESE for further evaluation of possible abscess formation and the degree of involvement of the aortic ring of the bioprosthetic aortic valve, we will continue with IV Rocephin and Ampicillin for now, repeated blood cltures from 01/24/2022 still no growth so far, also nasal screen negative for MSSA.MRSA, bedside spirometer showed FEV2 38 % of predicted, we will continue with aggressive pulmonary toiletting, patient has been seen by multiple services , prognosis continues to be guarded, spoke with his daughter and his over the phone , they are contemplating if he should go to a [facility] or [facility], our cardiothoracic team is involved and hopefully will see patient today and alleviate his concerns and give their recommendations on surgical intervention. 01/28: The patient remains in the intensive care unit patient has been afebrile, heart rate 70s, blood pressure 157/77, pulse ox 94% on room air. quality assurance monitor body is a paced rhythm. Cardiac catheterization, performed on 01/27, reveals moderate disease in the mid RCA, no evidence of high-grade stenosis in the LAD or left circumflex and placement of a temporary pacemaker. Patient will be seen by a dentist this afternoon. He is utilizing his incentive spirometry regularly and reaching 2000 2500. He is eating all of his food. He states he had a bowel movement yesterday and today. He is urinating without any difficulty. Patient is expecting to be seen by Dr. Lopez to discuss surgical options. WBC 6.4, hemoglobin 0.5, platelet count 235. BMP within normal limits. Calcium 8.2. Capillary blood glucose running between 126 and 196. Blood culture obtained on 01/24 showing no growth after 72 hours 1 specimen. REVIEW OF SYSTEMS Constitutional: No fever, no chills, no night sweats. No weight change. No weakness, denies fatigue no lethargy. No daytime sleepiness. EENT: No headache. No blurred vision or double vision, no loss of vision. No loss of Hearing, no ringing in the ears, no dizziness. No nasal drainage or congestion. No epistaxis. No sore throat. Lungs: No shortness of breath, cough, no sputum production. No wheezing. Cardiovascular: Reports left sided rib chest pain-improved, no lower extremity edema. No palpitations. No paroxysmal nocturnal dyspnea. No orthopnea. No lightheadedness or dizziness. No syncopal episodes. Abdominal: No abdominal pain. No nausea, vomiting. No diarrhea. No constipation. No bloody or tarry stools. No loss of appetite. Genitourinary: No dysuria, increased frequency, urgency. No urinary retention. Musculoskeletal: No myalgias. No muscle weakness, no gait dysfunction, no frequent falls. No back pain. No neck pain. Integumentary: No wounds, no lesions. No rash or pruritus. No unusual bruising. No change in hair or nails. Neurologic: No aphasia. No facial droop. No change in mentation. No head injury. No headache. No paralysis. No paresthesia. Psychiatric: No depression. No anxiety. No mood swings. Endocrine: No abnormal blood sugars. No weight change. No excessive sweating or thirst. No cold intolerance. PHYSICAL EXAMINATION Gen: This is a 76-year-old male. He is resting in ICU bed and appears to be in no acute distress. Family members at bedside. HEENT: Head is atraumatic, normocephalic. Pupils equal, round. Sclerae is anicteric. NECK: Supple. No JVD. No lymphadenopathy. No thyromegaly. LUNGS: Clear to auscultation. No wheezes or rhonchi. No intercostal retractions. HEART: First heart sound is depressed, second heart sound is normal, aortic valve click, systolic ejection murmur 2/6 at the left sternal border.. ABDOMEN: Soft. Bowel sounds are present. No masses. No tenderness. EXTREMITIES: No pedal edema. No calf tenderness. Dorsalis pedis +2 bilaterally. NEUROLOGICAL: Patient is awake, alert and oriented x3. Cranial nerves 2 through 12 are grossly intact. Muscle power 4 out of 5 upper and lower extremities bilaterally. ASSESSMENT AND PLAN 1. 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 Patients mental status is back to baseline. Patient admitted into the intensive care unit, consult in place with office rep, infectious disease, cardiothoracic surgery. Continue patient on ampicillin 2 g IV piggyback every 4 hours, ceftriaxone 2 g IV piggyback every 12 hours. Monitor for blood culture results which repeats have been negative thus far. 2. High-grade AV block. Patient was transferred to [facility], S/P TVP was placed. 3. Mild elevation in troponin secondary to sepsis, stable. S/p repeated LHC. 4. Hypertension with hypertensive cardiovascular disease. Continue patient on losartan 100 mg daily, hydralazine 100 mg 3 times daily, amlodipine 5 mg twice daily, Cardura 8 mg twice daily, Lasix 40 mg daily. 5. Hyperlipidemia. Continue atorvastatin 40 mg at bedtime. 6. Diabetes mellitus type 2, uncontrolled with hypoglycemia. Continue patient on Levemir 20 units at bedtime, NovoLog scale before meals and at bedtime, glimepiride decreased to 2 mg twice daily, Farxiga 10 mg daily. 7. Benign prostatic hypertrophy. Continue Flomax 0.4 mg daily, continue finasteride 5 mg daily 8. 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 Continue patient on Symbicort 160- 4.5 g 2 puffs twice daily, albuterol nebulizer every 4 hours as needed for shortness of breath, reviewed bedside spirometery with FEV1 38 % of predicted. 9. ALLERGIC rhinitis. Continue Singulair 10 mg at bedtime. 10. Chronic gout. Continue allopurinol 100 mg daily. 11. DVT prophylaxis. Heparin 5000 units subcu every 12 hours. 12. GI prophylaxis. Protonix 40 mg daily. CODE STATUS: Full code. Impression and plan of care have been directed as dictated by the signing physician. Maria G Paez nurse practitioner acting as scribe for signing physician. Objective - Vital Signs Vital signs: Vital Signs Temp 98.3 F 01/28/22 08:00 Pulse 71 01/28/22 09:00 Resp 20 01/28/22 09:00 BP 157/77 01/28/22 09:00 Pulse Ox 94 L 01/28/22 09:00 FiO2 Intake & Output 01/27/22 01/28/22 01/28/22 18:59 06:59 18:59 Intake Total 900 760 90 Output Total 2150 875 Balance -1250 -115 90 Weight 109.6 kg Intake: IV 900 760 90 0.9NS 450 360 90 Ampicillin 2,000 mg In 300 300 Sodium Chloride 0.9% 100 ml @ 200 mls/hr IVPB Q4HR AGATA Rx#:[id number] cefTRIAXone 2 gm In 50 100 Sodium Chloride 0.9% 50 ml @ 100 mls/hr IVPB Q12HR AGATA Rx#:[id number] Output: Urine 2150 875 Other: Voiding Method Urinal External Catheter # Voids 1 0 0 # Bowel Movements 1 - Labs CBC & Chem 7: 01/28/22 03:12 01/28/22 03:12 Labs: Abnormal Lab Results - Last 24 Hours (Table) 01/27/22 01/27/22 01/27/22 Range/Units 12:10 16:48 20:03 RBC (4.30-5.90) m/uL Hgb (13.0-17.5) gm/dL Hct (39.0-53.0) % POC Glucose (mg/dL) 112 H 196 H 192 H (70-110) mg/dL Calcium (8.4-10.2) mg/dL 01/28/22 01/28/22 01/28/22 Range/Units 03:12 03:12 06:43 RBC 3.72 L (4.30-5.90) m/uL Hgb 11.5 L (13.0-17.5) gm/dL Hct 35.1 L (39.0-53.0) % POC Glucose (mg/dL) 126 H (70-110) mg/dL Calcium 8.2 L (8.4-10.2) mg/dL Microbiology - Last 24 Hours (Table) 01/24/22 15:19 Blood Culture - Preliminary Blood No Growth after 72 hours 01/24/22 15:19 Blood Culture - Preliminary Blood No Growth after 72 hours
--- NOTE | 2022-01-28 14:58 | P.GSCN ---
History of Present Illness Consult date: 01/28/22 Reason for Consult: Dental Clearance Past Medical History Past Medical History: Asthma, Cancer, Diabetes Mellitus, Hyperlipidemia, Hypertension, Osteoarthritis (OA), Prostate Disorder Additional Past Medical History / Comment(s): AORTIC VALVE STENOSIS, HX SKIN CA melanoma removed from back November 2021 History of Any Multi-Drug Resistant Organisms: None Reported MDRO Source:: left leg 1961 Past Surgical History: Cardiac Valve Replacement, Heart Catheterization Additional Past Surgical History / Comment(s): left leg infection removed, Benign right breast tumor 1961; Aortic valve replaced [address] Sarah ball Past Anesthesia/Blood Transfusion Reactions: No Reported Reaction Past Psychological History: No Psychological Hx Reported Smoking Status: Former smoker Past Alcohol Use History: Occasional Additional Past Alcohol Use History / Comment(s): Quit 1992, smoked 1ppd from age 16, Past Drug Use History: None Reported - Past Family History Mother Family Medical History: Cancer, Congestive Heart Failure (CHF) Additional Family Medical History / Comment(s): renal, melanoma Father Family Medical History: Cancer Additional Family Medical History / Comment(s): melanoma Sister(s) Family Medical History: AFIB Brother(s) Family Medical History: No Reported History Daughter(s) Family Medical History: No Reported History Son(s) Family Medical History: No Reported History Medications and Allergies Home Medications Medication Instructions Recorded Confirmed Type Doxazosin Mesylate [Cardura] 8 mg PO BID 10/03/16 01/24/22 History Finasteride [Proscar] 5 mg PO DAILY 10/03/16 01/24/22 History Glimepiride [Amaryl] 4 mg PO BID 10/03/16 01/24/22 History Montelukast [Singulair] 10 mg PO DAILY 10/03/16 01/24/22 History Atorvastatin [Lipitor] 40 mg PO HS #30 tab 11/20/17 01/24/22 Rx Aspirin 325 mg PO DAILY #30 tab 12/08/17 01/24/22 Rx Albuterol Sulfate [Albuterol 1 puff PO RT-Q4H PRN 01/24/22 01/24/22 History Sulfate Hfa] Baclofen 10 mg PO BID PRN 01/24/22 01/24/22 History Calcium Carbonate [Calcium] 600 mg PO BID 01/24/22 01/24/22 History Clotrimazole/Betameth Cream 1 applic TOPICAL BID 01/24/22 01/24/22 History [Lotrisone] Dapagliflozin Propanediol [Farxiga] 10 mg PO DAILY 01/24/22 01/24/22 History Febuxostat [Uloric] 40 mg PO DAILY 01/24/22 01/24/22 History Fluticasone Propion/Salmeterol 2 puff INHALATION RT-BID 01/24/22 01/24/22 History [Advair Hfa 115-21 Mcg Inhaler] Furosemide [Lasix] 40 mg PO DAILY 01/24/22 01/24/22 History Insulin Glargine,Hum.rec.anlog 24 units SQ HS 01/24/22 01/24/22 History [Toujeo Solostar] Losartan Potassium [Cozaar] 100 mg PO DAILY 01/24/22 01/24/22 History Magnesium 250 mg PO DAILY 01/24/22 01/24/22 History Pioglitazone [Actos] 30 mg PO DAILY 01/24/22 01/24/22 History Tamsulosin HCl [Flomax] 0.4 mg PO DAILY 01/24/22 01/24/22 History allopurinoL 100 mg PO DAILY 01/24/22 01/24/22 History amLODIPine [Norvasc] 5 mg PO BID 01/24/22 01/24/22 History hydrALAZINE HCL [Apresoline] 100 mg PO TID-W/MEALS 01/24/22 01/24/22 History Allergies Allergy/AdvReac Type Severity Reaction Status Date / Time No Known Allergies Allergy Verified 01/24/22 14:07 Surgical - Exam Vital Signs Temp Pulse Resp BP Pulse Ox 98.4 F 51 L 24 137/60 96 01/24/22 12:20 01/24/22 12:20 01/24/22 12:20 01/24/22 12:20 01/24/22 12:20 Intraoral/Extraoral, hard and soft tissue exam performed. Review of CT scan. Results Review of CT was unremarkable and distorted due to streaking from metal restorations. Pt reported no current pain or swelling. Pt had no intra or extra oral swelling. Soft tissue was WNL. There was no mobility detected on any of the dentition and no obvious signs of caries. Pt is cleared dentally for surgery. Informed pt to follow up with regular dentist after discharge. - Labs 01/28/22 03:12 01/28/22 03:12 Abnormal Lab Results - Last 24 Hours (Table) 01/27/22 01/27/22 01/28/22 Range/Units 16:48 20:03 03:12 RBC (4.30-5.90) m/uL Hgb (13.0-17.5) gm/dL Hct (39.0-53.0) % POC Glucose (mg/dL) 196 H 192 H (70-110) mg/dL Calcium 8.2 L (8.4-10.2) mg/dL 01/28/22 01/28/22 01/28/22 Range/Units 03:12 06:43 11:42 RBC 3.72 L (4.30-5.90) m/uL Hgb 11.5 L (13.0-17.5) gm/dL Hct 35.1 L (39.0-53.0) % POC Glucose (mg/dL) 126 H 208 H (70-110) mg/dL Calcium (8.4-10.2) mg/dL Microbiology - Last 24 Hours (Table) 01/24/22 15:19 Blood Culture - Preliminary Blood No Growth after 72 hours 01/24/22 15:19 Blood Culture - Preliminary Blood No Growth after 72 hours Diabetes panel 01/28/22 Range/Units 03:12 Sodium 137 (137-145) mmol/L Potassium 4.3 (3.5-5.1) mmol/L Chloride 107 (98-107) mmol/L Carbon Dioxide 22 (22-30) mmol/L BUN 13 (9-20) mg/dL Creatinine 0.95 (0.66-1.25) mg/dL Glucose 99 (74-99) mg/dL Calcium 8.2 L (8.4-10.2) mg/dL Calcium panel 01/28/22 Range/Units 03:12 Calcium 8.2 L (8.4-10.2) mg/dL Pituitary panel 01/28/22 Range/Units 03:12 Sodium 137 (137-145) mmol/L Potassium 4.3 (3.5-5.1) mmol/L Chloride 107 (98-107) mmol/L Carbon Dioxide 22 (22-30) mmol/L BUN 13 (9-20) mg/dL Creatinine 0.95 (0.66-1.25) mg/dL Glucose 99 (74-99) mg/dL Calcium 8.2 L (8.4-10.2) mg/dL Adrenal panel 01/28/22 Range/Units 03:12 Sodium 137 (137-145) mmol/L Potassium 4.3 (3.5-5.1) mmol/L Chloride 107 (98-107) mmol/L Carbon Dioxide 22 (22-30) mmol/L BUN 13 (9-20) mg/dL Creatinine 0.95 (0.66-1.25) mg/dL Glucose 99 (74-99) mg/dL Calcium 8.2 L (8.4-10.2) mg/dL
[2022-01-28 16:31] LABS: Glucose,Whole Blood 171 mg/dL (70-110)
[2022-01-28] MEDS ORDERED: SODIUM CHLORIDE 0.65% NASAL SPRAY 44 ML BTL NASAL PRN (19:00)
[2022-01-28 20:39] LABS: Glucose,Whole Blood 194 mg/dL (70-110)
[2022-01-28] MEDS: INSULIN DETEMIR (LEVEMIR) 100 UNIT/ML SYR SQ SCH (21:16)
[2022-01-28] MEDS: ATORVASTATIN 40 MG TAB PO SCH (21:16)
[2022-01-29] MEDS: ACETAMINOPHEN TAB 325 MG TAB PO PRN (04:05)
[2022-01-29 04:07] LABS: Basophils # (A) 0.1 k/uL (0-0.2); Basophils % (A) 1 %; Eosinophils # (A) 0.1 k/uL (0-0.7); Eosinophils % (A) 2 %; HCT 35.8 % (39.0-53.0); HGB 11.7 gm/dL (13.0-17.5); Hypochromasia Slight; Lymphocytes % (A) 20 %; MCH 30.9 pg (25.0-35.0); MCHC 32.5 g/dL (31.0-37.0); MCV 95.1 fL (80.0-100.0); Mean Platelet Volume 7.8; Monocytes # (A) 0.4 k/uL (0-1.0); Monocytes % (A) 7 %; Neutrophils # (A) 3.6 k/uL (1.3-7.7); Neutrophils % (A) 68 %; Platelet Count 231 k/uL (150-450); RBC 3.77 m/uL (4.30-5.90); RDW 14.2 % (11.5-15.5); WBC 5.3 k/uL (3.8-10.6)
[2022-01-29] MEDS: AMPICILLIN 2,000 MG in SODIUM CHLORIDE 0.9% 100 ML IVPB SCH ×6 (04:08→23:46)
[2022-01-29 04:26] LABS: African American GFR (CKD) >90 (>60 ml/min/1.73 sqM); Anion Gap 8 mmol/L; Blood Urea Nitrogen 14 mg/dL (9-20); Calcium 8.4 mg/dL (8.4-10.2); Carbon Dioxide 22 mmol/L (22-30); Chloride 107 mmol/L (98-107); Glucose 122 mg/dL (74-99); Non-African American GFR(CKD) 79 (>60 ml/min/1.73 sqM); Potassium 4.3 mmol/L (3.5-5.1); Sodium 137 mmol/L (137-145)
--- NOTE | 2022-01-29 05:48 | PN ---
PROGRESS NOTE SUBJECTIVE: This gentleman is 76 years of age. He came in with confusion. He had aortic valve replacement performed 4 years ago. He now has a vegetation on the aortic valve and also developed complete heart block requiring pacemaker. Dr. Lopez and Jesse are conferring along with Dr. 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 OBJECTIVE: VITALS: Stable. HEART: The patient is in a paced rhythm at 60, S1-S2 heard normally, short systolic murmur is audible at left sternal border. Short systolic murmur at the base is also audible. No diastolic murmur. LUNGS: Revealed decent air entry. ABDOMEN: Exam unchanged. LOWER EXTREMITIES: Exam unchanged. We will await a final decision from the surgeons today. Currently on antibiotics. MMODL / IJN: [id number] /
[2022-01-29 06:29] LABS: Glucose,Whole Blood 97 mg/dL (70-110)
[2022-01-29] MEDS: INSULIN ASPART (NovoLOG) 100 UNIT/ML VIAL SQ SCH ×4 (06:31→20:28)
[2022-01-29] MEDS: hydrALAZINE HCL 50 MG TAB PO SCH ×3 (06:39→17:53)
[2022-01-29] MEDS: PANTOPRAZOLE 40 MG TABLET PO SCH (06:39)
[2022-01-29] MEDS: SYMBICORT 160-4.5 MCG INHALER INHALATION SCH ×2 (07:40→19:53)
[2022-01-29] MEDS ORDERED: FLUTICASONE 50MCG/SPRAY NASAL 16GM EA NOSTRIL PRN (08:21)
[2022-01-29] MEDS: MUPIROCIN 2% OINT 22 GM TUBE NASAL SCH ×2 (08:52→20:31)
[2022-01-29] MEDS: TAMSULOSIN 0.4 MG CAP.ER.24H PO SCH (08:54)
[2022-01-29] MEDS: LOSARTAN 50 MG TAB PO SCH (08:54)
[2022-01-29] MEDS: amLODIPine 5 MG TAB PO SCH (08:54)
[2022-01-29] MEDS: CALCIUM CARBONATE 500 MG CHEWABLE PO SCH ×2 (08:54→20:29)
[2022-01-29] MEDS: MAGNESIUM OXIDE 400 MG TAB PO SCH (08:54)
[2022-01-29] MEDS: FUROSEMIDE 40 MG TAB PO SCH (08:55)
[2022-01-29] MEDS: ASPIRIN 81 MG PO SCH (08:55)
[2022-01-29] MEDS: allopurinoL 100 MG TAB PO SCH (08:55)
[2022-01-29] MEDS: FINASTERIDE 5 MG TAB PO SCH (08:55)
[2022-01-29] MEDS: MONTELUKAST 10 MG TAB PO SCH (08:55)
[2022-01-29] MEDS: DAPAGLIFLOZIN PROPANEDIOL 10 MG TABLET PO SCH (08:55)
[2022-01-29] MEDS: DOXAZOSIN 4 MG TAB PO SCH ×2 (08:56→20:29)
[2022-01-29] MEDS: HEPARIN SODIUM,PORCINE/PF 5,000 UNIT/0.5 ML SYRINGE SQ SCH ×2 (08:56→20:29)
[2022-01-29] MEDS: GLIMEPIRIDE 2 MG TAB PO SCH ×2 (08:56→20:29)
[2022-01-29] MEDS ORDERED: MD COMMUNICATION TO PHARMACY 1 EACH MISC PO ONE ×4 (10:57)
--- NOTE | 2022-01-29 10:57 | P.PN ---
Subjective Progress Note Date: 01/29/22 Principal diagnosis: This is a 76-year-old gentleman who follows on an outpatient basis with Dr. Parish for his primary care service and with Dr. Cárdenas for his cardiology care. He has a past medical history significant for hypertension, hyperlipidemia, history of severe aortic valve stenosis status post aortic valve replacement with a 23 mm Inspiris bioprosthetic aortic valve, insulin-dependent diabetes mellitus type 2, sleep apnea without any home CPAP use, COPD, asthma, gout, obesity with a BMI of 32.9 kg/m, remote history of non-ST elevated myocardial infarction in October 2017 with an RCA stenosis of 30-40% at that time, benign prostatic hypertrophy, recent removal of melanoma to his back and a remote history of nicotine dependence in which he quit smoking in the early . On 01/17/2022 the patient presented to the emergency department at [facility] due to some disorientation and mental status changes. He denies any recent nausea, vomiting, fever, chills, cough, palpitations, presyncope, syncope, headache, chest pain or chest pressure. He reports that recently he has been having some burning sensation with urinating which started around 5 weeks ago. According to his chart from [facility] his initial urinalysis was negative for any organism although a repeat urinalysis showed positive for an enterococcus species according to the infectious disease note from [facility]. Due to the patient's mental status changes a computed tomography scan of his brain was completed which did not show any evidence of acute infarct or bleed. A computed tomography scan of his chest, abdomen and pelvis was also completed which showed some apparent perinephritic fat stranding without evidence of hydronephrosis, evidence of sigmoid diverticulosis without diverticulitis, cardiomegaly with bilateral pleural effusions and possible pulmonary fibrosis. The computed tomography scan of his cervical spine showed evidence of spondylosis of the cervical spine without evidence of fracture. Initial laboratory results on 01/17/2022 showed a WBC count of 10.3, hemoglobin 13.6, hematocrit 40.4, platelets 147, sodium 132, po tassium 4.3, chloride 99, CO2 21.3, BUN 24, creatinine 1.4, glucose 161, calcium 8.7, AST 32, ALT 66, troponin was slightly elevated at 96 and his following troponins were slightly higher at 107, BNP 1005, CRP 12.9, lactic acid 1.1, PT 11.5, and INR 1.12. A 12-lead EKG was completed which showed normal sinus rhythm with a first-degree AV block with a heart rate of 90 BPM. According to the patient's chart from [facility] the patient did have blood cultures positive for enterococcus faecalis and was subsequently started on ampicillin and Rocephin for antibiotic treatment. Due to the patient's history of aortic valve replacement and positive blood cultures a transthoracic 2-D echocardiogram was completed. The 2-D echocardiogram showed a bioprosthetic aortic valve to be present, normal prosthetic aortic valve gradient, no aortic valve regurgitation and no aortic valvular stenosis. It also showed mild mitral annular calcification with mild to moderate mitral valve regurgitation, no mitral valve stenosis, mild tricuspid valve regurgitation, trace pulmonic valve regurgitation, aortic root to be normal in size, no pericardial effusion and his left ventricular systolic function to be normal with a left ventricular ejection fraction of 55%. For further evaluation the patient underwent a transesophageal echocardiogram on 01/22/2022 which demonstrated his left ventricular systolic function to be normal with a left ventricular ejection fraction to be 55-60%, a bioprosthetic aortic valve to be present, no aortic valve regurgitation, a small aortic valve vegetation present measuring 0.53 cm, mitral annular calcification, moderate mitral valve regurgitation, mild to moderate tricuspid valve regurgitation, ascending aorta to be normal in size, the ascending aorta to be normal in caliber and no pericardial effusion. Subsequently, due to the findings of a vegetation present on his bioprosthetic aortic valve a consult was placed to Dr. Omi Molina from cardiothoracic surgery for further evaluation and treatment recommendations. Status post day #4 temporary pacemaker placement by Dr. Cárdenas. The patient was seen and examined in follow-up today 01/29/2022 at his bedside in the intensive care unit. Currently is laying in bed, is awake, alert, oriented 3 and is in no acute distress. Denies any complaints of shortness of breath, chest pain/chest pressure and denies any further feeling of congested. He remains hemodynamically stable and is currently on no inotropic or pressor support. Bedside telemetry showing a second degree type AV block with occasi onal paced beats and a heart rate of 53 BPM. Oxygen saturation are 95% on room air and he is achieving 7341-3323 mL on his incentive spirometry with encouragement. A repeat bedside FEV1 was completed on 01/27/2022 which showed a predicted value of 59% and a base volume of 1.75 L. Laboratory results this morning show a WBC count of 5.3, hemoglobin 11.7, hematocrit 35.8, platelets 231, sodium 137, potassium 4.3, BUN 14, creatinine 0.93 glucose 122 and calcium 8.4. Blood culture results from 01/25/2020 to continue to show no growth after 96 hours and he remains on ampicillin and Rocephin for antibiotic coverage managed by infectious disease, for a previous blood culture positive for enteroc occus faecalis. Patient has been afebrile the last 24 hours. Objective - Vital Signs Vital signs: Vital Signs Temp 98.3 F 01/29/22 04:00 Pulse 74 01/29/22 08:00 Resp 30 H 01/29/22 08:00 BP 182/87 01/29/22 08:00 Pulse Ox 95 01/29/22 08:00 FiO2 Intake & Output 01/28/22 01/29/22 01/29/22 18:59 06:59 18:59 Intake Total 360 1560 290 Output Total 1250 1550 650 Balance -890 10 -360 Weight 108.5 kg Intake: IV 360 710 90 0.9NS 360 360 90 Ampicillin 2,000 mg In 300 Sodium Chloride 0.9% 100 ml @ 200 mls/hr IVPB Q4HR [facility]ATA Rx#:[id number] cefTRIAXone 2 gm In 50 Sodium Chloride 0.9% 50 ml @ 100 mls/hr IVPB Q12HR [facility]ATA Rx#:[id number] Oral 850 200 Output: Urine 1250 1550 650 Other: Voiding Method External Catheter External Catheter External Catheter # Voids 0 1 # Bowel Movements 1 0 - Exam CONSTITUTIONAL: Sitting up in bed in the intensive care unit, appears comfortable, cooperative, no apparent acute distress. HEENT: Neck is supple, no JVD, no lymphadenopathy. RESPIRATORY: Lungs sounds essentially clear throughout, diminished to his bilateral bases. Respirations are symmetrical and nonlabored. Currently on room air with oxygen saturations 95%. Able to achieve 6909-3248 mL on his incentive spirometry. Strong cough. CARDIOVASCULAR: Irregular rhythm and bradycardic rate. S1 and S2 present, negative for S3, or gallop. Soft systolic murmur heard best at base. Palpable peripheral pulses bilaterally, trace edema to his bilateral lower extremities. No calf pain or tenderness noted. Sequential compression devices in place to his bilateral lower extremities. GASTROINTESTINAL: Abdomen soft, nontender, nondistended. Active bowel sounds present 4 quadrants. Tolerating diet. Passing flatus. No guarding or rigidi ty. Bowel movement yesterday 01/27/2022. GENITOURINARY: Continues to void, external catheter in place. 1000 mL of urine output in the last 8 hours. INTEGUMENTARY: Skin is warm and dry with no evidence of clubbing or cyanosis. MUSKULOSKELETAL: Able to move all extremities, strength equal bilaterally. PSYCHIATRIC: Alert and oriented to person place and time, appropriate affect, intact judgment and insight. INVASIVE LINES AND TUBES: Right groin transvenous pacer in place and connected to back up to bedside pacemaker generator on a VVI 50 BPM with ma of 3. - Allied health notes Allied health notes reviewed: nursing - Labs CBC & Chem 7: 01/29/22 03:50 01/29/22 03:50 Labs: Abnormal Lab Results - Last 24 Hours (Table) 01/28/22 01/28/22 01/28/22 Range/Units 11:42 16:30 20:37 RBC (4.30-5.90) m/uL Hgb (13.0-17.5) gm/dL Hct (39.0-53.0) % Glucose (74-99) mg/dL POC Glucose (mg/dL) 208 H 171 H 194 H (70-110) mg/dL 01/29/22 01/29/22 Range/Units 03:50 03:50 RBC 3.77 L (4.30-5.90) m/uL Hgb 11.7 L (13.0-17.5) gm/dL Hct 35.8 L (39.0-53.0) % Glucose 122 H (74-99) mg/dL POC Glucose (mg/dL) (70-110) mg/dL Microbiology - Last 24 Hours (Table) 01/24/22 15:19 Blood Culture - Preliminary Blood No Growth after 96 hours 01/24/22 15:19 Blood Culture - Preliminary Blood No Growth after 96 hours Assessment and Plan Assessment: 1. Bacteremia with positive blood cultures showing enterococcus faecalis 2. Small aortic valve vegetation as evidence on transesophageal echocardiogram 3. Moderate mitral valve regurgitation on transesophageal echocardiogram 4. Possible urinary tract infection, history of UTI in the past with pseudomonas aeruginosa in January 2020 5. History of severe aortic valve stenosis, status post aortic valve replacement with a 23 mm Inspiris bioprosthetic aortic valve in November 2017 6. Cardiac arrhythmia, with telemetry showing junctional rhythm at this time and second degree AV block, status post transvenous temporary pacemaker placement by Dr. Cárdenas 7. Hypertension 8. Hyperlipidemia 9. History of coronary artery disease with a 30-40% stenosis to his mid right coronary artery in October 2017 10. Insulin-dependent diabetes mellitus type 2 11. Obesity with a BMI of 32.9 kg/m 12. Obstructive sleep apnea without CPAP use 13. COPD with his most recent FEV1 showing a 59% of predicted value with the base volume of 1.75 L 14. History of asthma 15. Remote history of nicotine dependence quit smoking in 1992 16. Altered mental status, resolved 17. Benign prostatic hypertrophy 18. History of gout 19. Slight elevated velocities in the internal carotid arteries bilaterally suggestive of 50-70% stenosis 20. Coronary artery disease with moderate disease in the mid right coronary artery of 50% with no high-grade stenosis, status post heart catheterization yesterday 01/27/[address] Cárdenas Plan: 1. Continue to monitor results of blood cultures sent yesterday 01/24/2022. No growth after 96 hours. 2. Cardiac rhythm management per cardiology recommendations. Transvenous temporary pacemaker placed on 01/25/[address] Cárdenas. 3. Encourage use of his incentive spirometry 10 times every hour while awake. Bedside FEV1 repeated yesterday which showed a predicted value of 59% with a base volume of 1.75 L. 4. Patient underwent a CT Panorex yesterday, dental consult note and appreciated. Dental clearance has been obtained. 5. Continue ampicillin and Rocephin per infectious disease recommendations. 6. Bronchodilator management per pulmonary critical care service recommendations. 7. Diabetes management and other comorbidities per primary care service recommendations. 8. GI and DVT prophylaxis. 9. The patient will be tentatively scheduled for a redo aortic valve replacement possible aortic root replacement on , 01/31/2022 to be performed by Dr. Yamileth Lopez. 10. We will consult urology for recurrent urinary tract infections and urine retention. 11. We will continue to monitor and follow this patient to determine the best course of action based on his clinical course. Time with Patient: Greater than 30
--- NOTE | 2022-01-29 11:04 | P.PN ---
Subjective Progress Note Date: 01/29/22 HISTORY OF PRESENT ILLNESS This is a 76-year-old male patient with past medical history of hypertension with hypertensive cardiovascular disease, hyperlipidemia, diabetes mellitus type 2 with diabetic polyneuropathy, enlarged prostate, history of aortic valve disease status post aortic valve replacement with a 23 mm valve on 12/04/2017, prior to that, left heart catheterization revealed 30-40% stenosis in the RCA in 2018, history of melanoma status post resection 12/07/2021, from the back. Patient initially presented to [facility] with mental status changes with significant encephalopathy. CAT scan of the brain did not show any acute infarct or bleed. Patient did have leukocytosis and low-grade fever. He is status post IV fluid resuscitation, he was started on IV antibiotics initially in the form of Levaquin and subsequently changed to ampicillin and cef triaxone by Dr. Cunningham. EKG did not show any evidence of acute changes. CAT scan of the chest abdomen and pelvis showed some perinephric stranding without evidence of hydronephrosis, there was evidence of diverticulosis without diverticulitis. CAT scan of the chest showed evidence of cardiomegaly with bilateral pleural effusion and possible pulmonary fibrosis. CAT scan of the cervical spine did show evidence of spondylosis of cervical spine without evidence of fracture. CAT scan of the brain showed brain atrophy without evidence of acute infarct or bleed, small vessel disease present. Patient was initially admitted to [facility] where he was followed by infectious disease as well as cardiology. He underwent a REESE on 01/22 revealed left ventricular systolic function normal at 55-60%, small aortic valve vegetation was present measuring 0.53 cm. Patient has bioprosthetic aortic valve. Moderate MR, [id number] tricuspid regurgitation, no pericardial effusion. Patients blood cultures were positive for enterococcus species. Patient was in a sinus rhythm with a first-degree AV block but subsequently developed a high-grade AV block on 01/24 with progressive worsening of the AV block and PVCs. Patient is complaining of left lower rib cage chest discomfort. No palpitations or dizziness. Patient was then transferred to [facility] to be evaluated by cardiothoracic surgery team. Patient is seen today in the intensive care unit, consults added for cardiology, compounding assistant, cardiothoracic surgery. 01/25: Patient is seen today in the ICU. He states he slept well last night. He states he is better able to take a deep breath with less pain on his left chest wall. He is able to reach 1500 MLS on incentive spirometry. He is complaining of tingling in bilateral feet. Has not had a bowel movement but feels that he needs to today. Senokot scheduled added. Blood sugar was low this morning and glimepiride decreased to 2 mg twice daily and Levemir decreased to 20 units. Patient has an external catheter in place draining clear emily urine. He has been evaluated by cardiology, cardiothoracic surgery and compounding assistant. Cardiology is planning for temporary pacemaker. C plan to continue close monitoring in the intensive care unit, monitor results of the blood cultures.hest x-ray reveals postoperative changes similar to prior exam. There may be some interstitial changes. Carotid ultrasound reveals slight elevated velocity in the internal carotid arteries bilaterally suggestive of 50-70 percent stenosis. There is antegrade flow in the vertebral arteries. Panorex CAT scan completed without any significant abnormalities. Arterial ultrasound bilateral lower extremities revealed normal ankle brachial indices. 01/26: Patient is lying down in bed in no acute distress, yesterday underwent temporary TVP for 2nd degree AV block, plan is to repeat REESE for further evaluation of possible abscess formation and the degree of involvement of the aortic ring of the bioprosthetic aortic valve, we will continue with IV Rocephin and Ampicillin for now, repeated blood cltures from 01/24/2022 still no growth so far, also nasal screen negative for MSSA.MRSA, bedside spirometer showed FEV2 38 % of predicted, we will continue with aggressive pulmonary toiletting, patient has been seen by multiple services , prognosis continues to be guarded, spoke with his daughter and his over the phone , they are contemplating if he should go to a [facility] like [facility] or [facility], our cardiothoracic team is involved and hopefully will see patient today and alleviate his concerns and give their recommendations on surgical intervention. 01/28: The patient remains in the intensive care unit patient has been afebrile, heart rate 70s, blood pressure 157/77, pulse ox 94% on room air. secured entrance monitor is a paced rhythm. Cardiac catheterization, performed on 01/27, reveals moderate disease in the mid RCA, no evidence of high-grade stenosis in the LAD or left circumflex and placement of a temporary pacemaker. Patient will be seen by a dentist this afternoon. He is utilizing his incentive spirometry regularly and reaching 2000 2500. He is eating all of his food. He states he had a bowel movement yesterday and today. He is urinating without any difficulty. Patient is expecting to be seen by Dr. Lopez to discuss surgical options. WBC 6.4, hemoglobin 0.5, platelet count 235. BMP within normal limits. Calcium 8.2. Capillary blood glucose running between 126 and 196. Blood culture obtained on 01/24 showing no growth after 72 hours 1 specimen. 01/29: Patient was seen by the dentist yesterday and was cleared by surgery. He complains of dry mouth when he woke up this morning but otherwise no new complaints. secured entrance monitor is paced rhythm. Pulse ox 95% on room air. Blood pressure elevated 182/87. Hydrochlorothiazide 25 mg added to his blood pressure regime. Repeat blood work reveals WBC 5.3, hemoglobin 11.7, platelet count 230. Electrolytes and renal function normal. Capillary blood glucose running between 97-194. Patient is waiting to hear from the cardiothoracic team regarding plan for surgery. REVIEW OF SYSTEMS Constitutional: No fever, no chills, no night sweats. No weight change. No weakness, denies fatigue no lethargy. No daytime sleepiness. EENT: No headache. No blurred vision or double vision, no loss of vision. No loss of Hearing, no ringing in the ears, no dizziness. No nasal drainage or congestion. No epistaxis. No sore throat. Lungs: No shortness of breath, cough, no sputum production. No wheezing. Cardiovascular: Reports left sided rib chest pain-improved, no lower extremity edema. No palpitations. No paroxysmal nocturnal dyspnea. No orthopnea. No lightheadedness or dizziness. No syncopal episodes. Abdominal: No abdominal pain. No nausea, vomiting. No diarrhea. No constipation. No bloody or tarry stools. No loss of appetite. Genitourinary: No dysuria, increased frequency, urgency. No urinary retention. Musculoskeletal: No myalgias. No muscle weakness, no gait dysfunction, no frequent falls. No back pain. No neck pain. Integumentary: No wounds, no lesions. No rash or pruritus. No unusual bruis ing. No change in hair or nails. Neurologic: No aphasia. No facial droop. No change in mentation. No head injury. No headache. No paralysis. No paresthesia. Psychiatric: No depression. No anxiety. No mood swings. Endocrine: No abnormal blood sugars. No weight change. No excessive sweating or thirst. No cold intolerance. PHYSICAL EXAMINATION Gen: This is a 76-year-old male. He is resting in ICU bed and appears to be in no acute distress. Patient's is on the phone and updated. HEENT: Head is atraumatic, normocephalic. Pupils equal, round. Sclerae is anicteric. NECK: Supple. No JVD. No lymphadenopathy. No thyromegaly. LUNGS: Clear to auscultation. No wheezes or rhonchi. No intercostal retractions. HEART: First heart sound is depressed, second heart sound is normal, aortic valve click, systolic ejection murmur 2/6 at the left sternal border.. ABDOMEN: Soft. Bowel sounds are present. No masses. No tenderness. EXTREMITIES: No pedal edema. No calf tenderness. Dorsalis pedis +2 bilaterally. NEUROLOGICAL: Patient is awake, alert and oriented x3. Cranial nerves 2 through 12 are grossly intact. Muscle power 4 out of 5 upper and lower extremities bilaterally. ASSESSMENT AND PLAN 1. 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 Patients mental status is back to baseline. Patient admitted into the intensive care unit, consult in place with compounding assistant, infectious disease, cardiothoracic surgery. Continue patient on ampicillin 2 g IV piggyback every 4 hours, ceftriaxone 2 g IV piggyback every 12 hours. Monitor for blood culture results which repeats have been negative thus far. Awaiting plan from [facility]. 2. High-grade AV block. Patient was transferred to [facility], S/P TVP was placed. 3. Mild elevation in troponin secondary to sepsis, stable. S/p repeated LHC. 4. Hypertension with hypertensive cardiovascular disease. Continue patient on losartan 100 mg daily, hydralazine 100 mg 3 times daily, amlodipine 5 mg twice daily, Cardura 8 mg twice daily, Lasix 40 mg daily, add hydrochlorothiazide 25 mg daily. 5. Hyperlipidemia. Continue atorvastatin 40 mg at bedtime. 6. Diabetes mellitus type 2, uncontrolled with hypoglycemia. Continue patient on Levemir 20 units at bedtime, NovoLog scale before meals and at bedtime, glimepiride decreased to 2 mg twice daily, Farxiga 10 mg daily. 7. Benign prostatic hypertrophy. Continue Flomax 0.4 mg daily, continue finasteride 5 mg daily 8. 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 Continue patient on Symbicort 160- 4.5 g 2 puffs twice daily, albuterol nebulizer every 4 hours as needed for shortness of breath, reviewed bedside spirometery with FEV1 38 % of predicted. 9. ALLERGIC rhinitis. Continue Singulair 10 mg at bedtime. 10. Chronic gout. Continue allopurinol 100 mg daily. 11. DVT prophylaxis. Heparin 5000 units subcu every 12 hours. 12. GI prophylaxis. Protonix 40 mg daily. CODE STATUS: Full code. Impression and plan of care have been directed as dictated by the signing physician. Maria G Paez nurse practitioner acting as scribe for signing renetta mccarthy. Objective - Vital Signs Vital signs: Vital Signs Temp 98.3 F 01/29/22 04:00 Pulse 74 01/29/22 08:00 Resp 30 H 01/29/22 08:00 BP 182/87 01/29/22 08:00 Pulse Ox 95 01/29/22 08:00 FiO2 Intake & Output 01/28/22 01/29/22 01/29/22 18:59 06:59 18:59 Intake Total 360 1560 30 Output Total 1250 1550 100 Balance -890 10 -70 Weight 108.5 kg Intake: IV 360 710 30 0.9NS 360 360 30 Ampicillin 2,000 mg In 300 Sodium Chloride 0.9% 100 ml @ 200 mls/hr IVPB Q4HR [facility] Rx#:[id number] cefTRIAXone 2 gm In 50 Sodium Chloride 0.9% 50 ml @ 100 mls/hr IVPB Q12HR [facility]ATA Rx#:[id number] Oral 850 Output: Urine 1250 1550 100 Other: Voiding Method External Catheter External Catheter # Voids 0 1 # Bowel Movements 1 0 - Labs CBC & Chem 7: 01/29/22 03:50 01/29/22 03:50 Labs: Abnormal Lab Results - Last 24 Hours (Table) 01/28/22 01/28/22 01/28/22 Range/Units 11:42 16:30 20:37 RBC (4.30-5.90) m/uL Hgb (13.0-17.5) gm/dL Hct (39.0-53.0) % Glucose (74-99) mg/dL POC Glucose (mg/dL) 208 H 171 H 194 H (70-110) mg/dL 01/29/22 01/29/22 Range/Units 03:50 03:50 RBC 3.77 L (4.30-5.90) m/uL Hgb 11.7 L (13.0-17.5) gm/dL Hct 35.8 L (39.0-53.0) % Glucose 122 H (74-99) mg/dL POC Glucose (mg/dL) (70-110) mg/dL Microbiology - Last 24 Hours (Table) 01/24/22 15:19 Blood Culture - Preliminary Blood No Growth after 96 hours 01/24/22 15:19 Blood Culture - Preliminary Blood No Growth after 96 hours
[2022-01-29 11:23] LABS: Glucose,Whole Blood 117 mg/dL (70-110)
--- NOTE | 2022-01-29 11:33 | P.PN ---
Subjective Progress Note Date: 01/29/22 Principal diagnosis: Endocarditis. Patient was reevaluated today on 01/25/22 patient remains in the ICU, remains on broad-spectrum antibiotics, he is hemodynamically stable, not in any form of distress, not requiring any pressors or any inotropes. Remains on ampicillin and Rocephin as recommended by infectious disease for his Enterococcus faecalis endocarditis. His labs today are basically unremarkable. Patient is being considered for surgical intervention by cardiothoracic surgery. Labs today were basically unremarkable including relatively normal CBC and normal basic metabolic profile Reevaluated today on 01/26/22, patient remains in the ICU, has been seen by many consultants, patient is to be seen by thoracic surgery today, apparently cardiology declined repeating is REESE, and felt very confident that the patient has endocarditis, and no need to repeat his REESE. Patient is being considered for transfer to another tertiary care center but he is yet to be seen by cardiothoracic surgery. In the meantime the patient seems to be hemodynamically stable, he is on room air, not in any distress. Reevaluated today on 01/27/22, patient is in the ICU, scheduled to undergo cardiac catheterization today. Patient is being worked up and possibly to undergo redo aortic valve replacement because of the endocarditis and he had evidence of new AV block. Today the patient will likely have placement of a temporary pacemaker since his previous temporary pacemaker is nonfunctional. Patient denies any pulmonary symptoms. No cough no wheezing no shortness of breath. Progress note dated 01/28/2022. This is a 76-year-old male who was admitted on January 24, with aortic valve endocarditis, secondary to enterococcus faecalis. The patient remains on antibiotics in the form of ampicillin and Rocephin. The patient is not receiving any supplemental oxygen. The patient is getting saline fluid, at 30 mL an hour. The patient may end up going to the operating room tomorrow for aortic valve replacement. The surgeon has not made up his mind as yet. He had a previous aortic valve replacement 4 years ago. Lab data includes a white count 6.4, hemoglobin 11.5, hematocrit 35.1, and normal platelet count. Electrolyte profile is completely normal. Calcium is 8.2. Blood cultures here are thus far negative. Progress note dated 01/29/2022. 76-year-old male admitted on January 24, with aortic valve endocarditis, secondary to Enterococcus faecalis. The patient remains on antibiotics in the form of both ampicillin and Rocephin. He is not receiving any supplemental oxygen. The patient is getting saline at 30 mL an hour. He has not yet been seen by cardiothoracic surgery. At the current time, there is no plans for aortic valve replacement. He had a previous aortic valve replacement, 4 years ago. Current labs show white count of 5.3, hemoglobin 11.7, hematocrit 35.8, and a normal platelet count. Sodium, potassium, chloride, CO2, BUN, and creatin ine are all normal. Objective - Vital Signs Vital signs: Vital Signs Temp 98.3 F 01/29/22 04:00 Pulse 74 01/29/22 08:00 Resp 30 H 01/29/22 08:00 BP 182/87 01/29/22 08:00 Pulse Ox 95 01/29/22 08:00 FiO2 Intake & Output 01/28/22 01/29/22 01/29/22 18:59 06:59 18:59 Intake Total 360 1560 290 Output Total 1250 1550 650 Balance -890 10 -360 Weight 108.5 kg Intake: IV 360 710 90 0.9NS 360 360 90 Ampicillin 2,000 mg In 300 Sodium Chloride 0.9% 100 ml @ 200 mls/hr IVPB Q4HR [facility] Rx#:[id number] cefTRIAXone 2 gm In 50 Sodium Chloride 0.9% 50 ml @ 100 mls/hr IVPB Q12HR [facility] Rx#:[id number] Oral 850 200 Output: Urine 1250 1550 650 Other: Voiding Method External Catheter External Catheter External Catheter # Voids 0 1 # Bowel Movements 1 0 - Exam No acute distress, oriented 3. Currently not requiring any supplemental oxygen. HEENT examination is grossly unremarkable. Neck supple. Full range of motion. No adenopathy thyromegaly or neck vein distention. Cardiovascular examination reveals regular rhythm rate. S1-S2 normal. No S3 or S4. A soft systolic murmur is noted. Heart rate 74 bpm. Lungs reveal clear breath sounds. Breath sounds are equal bilaterally. No adventitious lung sounds including wheezes rhonchi or crackles. Saturations on room air are 95%. Abdomen soft bowel sounds are heard. No masses or tenderness. Extremities are intact. No cyanosis clubbing or edema. Skin is without rash or lesion. Neurologic examination is brief but nonfocal. - Labs CBC & Chem 7: 01/29/22 03:50 01/29/22 03:50 Labs: Abnormal Lab Results - Last 24 Hours (Table) 01/28/22 01/28/22 01/28/22 Range/Units 11:42 16:30 20:37 RBC (4.30-5.90) m/uL Hgb (13.0-17.5) gm/dL Hct (39.0-53.0) % Glucose (74-99) mg/dL POC Glucose (mg/dL) 208 H 171 H 194 H (70-110) mg/dL 01/29/22 01/29/22 01/29/22 Range/Units 03:50 03:50 11:21 RBC 3.77 L (4.30-5.90) m/uL Hgb 11.7 L (13.0-17.5) gm/dL Hct 35.8 L (39.0-53.0) % Glucose 122 H (74-99) mg/dL POC Glucose (mg/dL) 117 H (70-110) mg/dL Microbiology - Last 24 Hours (Table) 01/24/22 15:19 Blood Culture - Preliminary Blood No Growth after 96 hours 01/24/22 15:19 Blood Culture - Preliminary Blood No Growth after 96 hours Assessment and Plan Assessment: Acute aortic valve endocarditis, secondary to Enterococcus faecalis. Prior history of aortic valve replacement, 4 years ago for aortic stenosis. High-grade AV block, secondary to endocarditis. Acute encephalopathy, secondary to endocarditis and sepsis. History of COPD, stable. Essential hypertension. Type 2 diabetes mellitus. BPH. Seasonal ALLERGIC rhinitis. Plan: Plan dated 01/28/2022. The patient will be evaluated by the surgeon later today, and may end up going back to the operating room, for his aortic valve endocarditis. The patient's blood cultures at the outside hospital were positive for Enterococcus faecalis. Currently the cultures here are negative. The patient remains on ampicillin and Rocephin. We will continue to follow make recommendations along the way. Prognosis is guarded. Labs, x-rays, and medications are all reviewed. Plan dated 01/29/2022. The patient is awaiting to see the surgeon. No decision has been made in regards to surgery. The patient remains on antibiotics. Cultures at this [facility] have been negative. Labs, x-rays, and medications are reviewed. Prognosis is certainly guarded. Time with Patient: Less than 30
[2022-01-29] MEDS: SENNOSIDES-DOCUSATE SODIUM 1 EACH TAB PO SCH (12:14)
[2022-01-29 16:44] LABS: Glucose,Whole Blood 174 mg/dL (70-110)
[2022-01-29] MEDS: SODIUM CHLORIDE 0.9% 1,000 ML in EMPTY BAG 1 BAG IV SCH (17:46)
[2022-01-29] MEDS: hydroCHLOROthiazide 25 MG TAB PO SCH (17:54)
--- NOTE | 2022-01-29 18:45 | P.GSCN ---
History of Present Illness Consult date: 01/29/22 Reason for Consult: Recurrent UTIs History of present illness: This is a 76-year-old male admitted to the hospital with endocarditis. Urology is consulted for recurrent UTIs. He does have history of BPH and follows up with Dr. Emmanuel as an outpatient is currently on Flomax and Proscar. Indicated he had dysuria approximately 4 weeks ago, but had a urine culture that showed no growth. He indicated his dysuria has resolved now. On review of chart and only has had one positive culture back in 2019 that showed Pseudomonas. Indicates at baseline he is able to void spontaneously. No previous history of retention. He also has history of phimosis. Review of Systems - Constitutional Denies fever, Denies weight loss - Gastrointestinal Reports as per HPI - Genitourinary Denies dysuria, Denies hematuria - Neurological Denies headaches, Denies syncope Past Medical History Past Medical History: Asthma, Cancer, Diabetes Mellitus, Hyperlipidemia, Hypertension, Osteoarthritis (OA), Prostate Disorder Additional Past Medical History / Comment(s): AORTIC VALVE STENOSIS, HX SKIN CA melanoma removed from back November 2021 History of Any Multi-Drug Resistant Organisms: None Reported MDRO Source:: left leg 1961 Past Surgical History: Cardiac Valve Replacement, Heart Catheterization Additional Past Surgical History / Comment(s): left leg infection removed, Benign right breast tumor 1961; Aortic valve replaced [address] Sarah ball Past Anesthesia/Blood Transfusion Reactions: No Reported Reaction Past Psychological History: No Psychological Hx Reported Smoking Status: Former smoker Past Alcohol Use History: Occasional Additional Past Alcohol Use History / Comment(s): Quit 1992, smoked 1ppd from age 16, Past Drug Use History: None Reported - Past Family History Mother Family Medical History: Cancer, Congestive Heart Failure (CHF) Additional Family Medical History / Comment(s): renal, melanoma Father Family Medical History: Cancer Additional Family Medical History / Comment(s): melanoma Sister(s) Family Medical History: AFIB Brother(s) Family Medical History: No Reported History Daughter(s) Family Medical History: No Reported History Son(s) Family Medical History: No Reported History Medications and Allergies Home Medications Medication Instructions Recorded Confirmed Type Doxazosin Mesylate [Cardura] 8 mg PO BID 10/03/16 01/24/22 History Finasteride [Proscar] 5 mg PO DAILY 10/03/16 01/24/22 History Glimepiride [Amaryl] 4 mg PO BID 10/03/16 01/24/22 History Montelukast [Singulair] 10 mg PO DAILY 10/03/16 01/24/22 History Atorvastatin [Lipitor] 40 mg PO HS #30 tab 11/20/17 01/24/22 Rx Aspirin 325 mg PO DAILY #30 tab 12/08/17 01/24/22 Rx Albuterol Sulfate [Albuterol 1 puff PO RT-Q4H PRN 01/24/22 01/24/22 History Sulfate Hfa] Baclofen 10 mg PO BID PRN 01/24/22 01/24/22 History Calcium Carbonate [Calcium] 600 mg PO BID 01/24/22 01/24/22 History Clotrimazole/Betameth Cream 1 applic TOPICAL BID 01/24/22 01/24/22 History [Lotrisone] Dapagliflozin Propanediol [Farxiga] 10 mg PO DAILY 01/24/22 01/24/22 History Febuxostat [Uloric] 40 mg PO DAILY 01/24/22 01/24/22 History Fluticasone Propion/Salmeterol 2 puff INHALATION RT-BID 01/24/22 01/24/22 History [Advair Hfa 115-21 Mcg Inhaler] Furosemide [Lasix] 40 mg PO DAILY 01/24/22 01/24/22 History Insulin Glargine,Hum.rec.anlog 24 units SQ HS 01/24/22 01/24/22 History [Toujeo Solostar] Losartan Potassium [Cozaar] 100 mg PO DAILY 01/24/22 01/24/22 History Magnesium 250 mg PO DAILY 01/24/22 01/24/22 History Pioglitazone [Actos] 30 mg PO DAILY 01/24/22 01/24/22 History Tamsulosin HCl [Flomax] 0.4 mg PO DAILY 01/24/22 01/24/22 History allopurinoL 100 mg PO DAILY 01/24/22 01/24/22 History amLODIPine [Norvasc] 5 mg PO BID 01/24/22 01/24/22 History hydrALAZINE HCL [Apresoline] 100 mg PO TID-W/MEALS 01/24/22 01/24/22 History Allergies Allergy/AdvReac Type Severity Reaction Status Date / Time No Known Allergies Allergy Verified 01/24/22 14:07 Surgical - Exam Vital Signs Temp Pulse Resp BP Pulse Ox 98.4 F 51 L 24 137/60 96 01/24/22 12:20 01/24/22 12:20 01/24/22 12:20 01/24/22 12:20 01/24/22 12:20 - General no distress, no pain - Eyes normal ocular movement, no pale - ENT normal nares, normal mucosa - Respiratory normal expansion, normal respiratory effort - Abdomen Abdomen: soft, non tender - Genitourinary (+) phimosis, unable to examine glans, bilateral normal palpable testes. - Psychiatric oriented to time, oriented to person, oriented to place Results - Labs 01/29/22 03:50 01/29/22 03:50 Abnormal Lab Results - Last 24 Hours (Table) 01/28/22 01/29/22 01/29/22 Range/Units 20:37 03:50 03:50 RBC 3.77 L (4.30-5.90) m/uL Hgb 11.7 L (13.0-17.5) gm/dL Hct 35.8 L (39.0-53.0) % Glucose 122 H (74-99) mg/dL POC Glucose (mg/dL) 194 H (70-110) mg/dL 01/29/22 01/29/22 Range/Units 11:21 16:43 RBC (4.30-5.90) m/uL Hgb (13.0-17.5) gm/dL Hct (39.0-53.0) % Glucose (74-99) mg/dL POC Glucose (mg/dL) 117 H 174 H (70-110) mg/dL Microbiology - Last 24 Hours (Table) 01/24/22 15:19 Blood Culture - Preliminary Blood No Growth after 120 hours 01/24/22 15:19 Blood Culture - Preliminary Blood No Growth after 120 hours Diabetes panel 01/29/22 Range/Units 03:50 Sodium 137 (137-145) mmol/L Potassium 4.3 (3.5-5.1) mmol/L Chloride 107 (98-107) mmol/L Carbon Dioxide 22 (22-30) mmol/L BUN 14 (9-20) mg/dL Creatinine 0.93 (0.66-1.25) mg/dL Glucose 122 H (74-99) mg/dL Calcium 8.4 (8.4-10.2) mg/dL Calcium panel 01/29/22 Range/Units 03:50 Calcium 8.4 (8.4-10.2) mg/dL Pituitary panel 01/29/22 Range/Units 03:50 Sodium 137 (137-145) mmol/L Potassium 4.3 (3.5-5.1) mmol/L Chloride 107 (98-107) mmol/L Carbon Dioxide 22 (22-30) mmol/L BUN 14 (9-20) mg/dL Creatinine 0.93 (0.66-1.25) mg/dL Glucose 122 H (74-99) mg/dL Calcium 8.4 (8.4-10.2) mg/dL Adrenal panel 01/29/22 Range/Units 03:50 Sodium 137 (137-145) mmol/L Potassium 4.3 (3.5-5.1) mmol/L Chloride 107 (98-107) mmol/L Carbon Dioxide 22 (22-30) mmol/L BUN 14 (9-20) mg/dL Creatinine 0.93 (0.66-1.25) mg/dL Glucose 122 H (74-99) mg/dL Calcium 8.4 (8.4-10.2) mg/dL Assessment and Plan Assessment: 76-year-old male with history of BPH on Flomax and Proscar. Urology is consult ed for recurrent UTIs, I reviewed his culture I only see 1 positive urine culture, most recent urine culture obtained showed no growth. Additionally patient has phimosis, this could be contributing the positive culture as this could be a source of contamination rather than actually UTI. at this time from urology standpoint no further intervention is needed. -Keep follow-up with Dr. Emmanuel as an outpatient.
[2022-01-29 20:16] LABS: Glucose,Whole Blood 177 mg/dL (70-110)
[2022-01-29] MEDS: INSULIN DETEMIR (LEVEMIR) 100 UNIT/ML SYR SQ SCH (20:28)
[2022-01-29] MEDS: ATORVASTATIN 40 MG TAB PO SCH (20:29)
[2022-01-30] MEDS: ACETAMINOPHEN TAB 325 MG TAB PO PRN (01:28)
[2022-01-30] MEDS: AMPICILLIN 2,000 MG in SODIUM CHLORIDE 0.9% 100 ML IVPB SCH ×5 (04:03→21:24)
[2022-01-30 04:46] LABS: Basophils # (A) 0.1 k/uL (0-0.2); Basophils % (A) 1 %; Eosinophils # (A) 0.1 k/uL (0-0.7); Eosinophils % (A) 2 %; HCT 35.3 % (39.0-53.0); HGB 11.7 gm/dL (13.0-17.5); Hypochromasia Slight; Lymphocytes % (A) 17 %; MCH 31.1 pg (25.0-35.0); MCHC 33.1 g/dL (31.0-37.0); MCV 94.1 fL (80.0-100.0); Monocytes # (A) 0.4 k/uL (0-1.0); Monocytes % (A) 7 %; Neutrophils # (A) 4.4 k/uL (1.3-7.7); Neutrophils % (A) 71 %; Platelet Count 237 k/uL (150-450); RBC 3.75 m/uL (4.30-5.90); RDW 14.3 % (11.5-15.5); WBC 6.1 k/uL (3.8-10.6)
[2022-01-30 04:59] LABS: Calcium 8.4 mg/dL (8.4-10.2); Potassium 4.3 mmol/L (3.5-5.1)
[2022-01-30 06:41] LABS: Glucose,Whole Blood 109 mg/dL (70-110)
[2022-01-30] MEDS: INSULIN ASPART (NovoLOG) 100 UNIT/ML VIAL SQ SCH ×4 (06:41→21:40)
[2022-01-30] MEDS: hydrALAZINE HCL 50 MG TAB PO SCH ×3 (06:58→16:40)
[2022-01-30] MEDS: PANTOPRAZOLE 40 MG TABLET PO SCH (06:58)
[2022-01-30] MEDS: SYMBICORT 160-4.5 MCG INHALER INHALATION SCH ×2 (07:47→21:11)
--- NOTE | 2022-01-30 08:06 | P.PN ---
Subjective Progress Note Date: 01/30/22 Principal diagnosis: Bacteremia with enterococcus faecalis, aortic valve endocarditis, moderate mitral valve regurgitation, Cardiac arrhythmia (junctional rhythm, second degree AV block), altered mental status present on admission. History of severe aortic valve stenosis status post aortic valve replacement with a 23 mm Inspiris bioprosthetic aortic valve in November 2017, CAD with mid RCA stenosis 50% and previous PCI in 2017, hypertension, hyperlipidemia, insulin-dependent diabetes mellitus type 2, obesity, obstructive sleep apnea without CPAP use, moderate COPD, asthma, previous tobacco dependence, benign prostatic hypertrophy, UTIs with pseudomonas in 01/2020, gout, bilateral internal carotid stenosis 50-70% The patient was seen and examined this morning sitting up in bed in the intensive care unit eating breakfast in no acute distress. He denies any pain or shortness of breath. He does state he is quite nervous for surgery but otherwise has no new complaints. Remains hemodynamically stable. Blood cultures from January 24 remain negative to date. Remains afebrile, CBC 6.1 this morning. Currently maintained on ampicillin and Rocephin per infectious d isease. Patient was seen by urology yesterday with no further recommendations at this time, however patient states he did forget to tell the urologist that he has seen blood in his semen twice although it has been quite a while. No other new concerns. Objective - Vital Signs Vital signs: Vital Signs Temp 98.8 F 01/30/22 04:00 Pulse 66 01/30/22 07:00 Resp 12 01/30/22 07:00 BP 140/67 01/30/22 07:00 Pulse Ox 95 01/30/22 07:00 FiO2 Intake & Output 01/29/22 01/30/22 01/30/22 18:59 06:59 18:59 Intake Total 1160 1360 30 Output Total 2200 2270 350 Balance -1040 -910 -320 Weight 108.5 kg 109.2 kg Intake: IV 360 710 30 0.9NS 360 360 30 Ampicillin 2,000 mg In 300 Sodium Chloride 0.9% 100 ml @ 200 mls/hr IVPB Q4HR [facility] Rx#:[id number] cefTRIAXone 2 gm In 50 Sodium Chloride 0.9% 50 ml @ 100 mls/hr IVPB Q12HR [facility] Rx#:[id number] Oral 800 650 Output: Urine 2200 2270 350 Other: Voiding Method External Catheter External Catheter - Exam CONSTITUTIONAL: Appears comfortable, cooperative, no acute distress RESPIRATORY: Lungs sounds diminished bilaterally in the bases. Respirations even, nonlabored. Currently on room air with oxygen saturation 95%. Able to achieve 2500 mL on incentive spirometry. Strong cough. CARDIOVASCULAR: S1, S2 present. Irregular rate and rhythm. Palpable peripheral pulses bilaterally. Trace bilateral lower extremity edema present. No calf pain or tenderness noted. GASTROINTESTINAL: Abdomen soft, nontender, nondistended. Active bowel sounds present 4 quadrants. Tolerating diet. GENITOURINARY: External catheter present draining clear, yellow urine. Output 4470 mL in the last 24 hours INTEGUMENTARY: Skin is warm and dry with evidence of good perfusion. NEUROLOGIC: Cranial nerves II through XII intact MUSKULOSKELETAL: Able to move all extremities, strength equal bilaterally PSYCHIATRIC: Alert and oriented to person place and time, appropriate affect, intact judgment and insight INVASIVE LINES AND TUBES: Right groin transvenous pacemaker present, connected to generator, VVI mode with backup rate 50 bpm - Allied health notes Allied health notes reviewed: nursing - Labs CBC & Chem 7: 01/30/22 03:52 01/30/22 03:52 Labs: Abnormal Lab Results - Last 24 Hours (Table) 01/29/22 01/29/22 01/29/22 Range/Units 11:21 16:43 20:14 RBC (4.30-5.90) m/uL Hgb (13.0-17.5) gm/dL Hct (39.0-53.0) % Glucose (74-99) mg/dL POC Glucose (mg/dL) 117 H 174 H 177 H (70-110) mg/dL Crossmatch 01/30/22 01/30/22 01/30/22 Range/Units 03:52 03:52 03:52 RBC 3.75 L (4.30-5.90) m/uL Hgb 11.7 L (13.0-17.5) gm/dL Hct 35.3 L (39.0-53.0) % Glucose 133 H (74-99) mg/dL POC Glucose (mg/dL) (70-110) mg/dL Crossmatch See Detail Microbiology - Last 24 Hours (Table) 01/24/22 15:19 Blood Culture - Preliminary Blood No Growth after 120 hours 01/24/22 15:19 Blood Culture - Preliminary Blood No Growth after 120 hours Assessment and Plan Assessment: 1. Bacteremia with enterococcus faecalis, blood cultures currently negative to date 2. Aortic valve endocarditis 3. Moderate mitral valve regurgitation 4. Cardiac arrhythmia (junctional rhythm, second degree AV block), status post temporary transvenous pacemaker on 01/25/[address] Cárdenas 5. Altered mental status present on admission, resolved 6. History of severe aortic valve stenosis status post aortic valve replacement with a 23 mm Inspiris bioprosthetic aortic valve in November 2017 7. CAD with mid RCA stenosis 50% and previous PCI in 2018 8. Hypertension 9. Hyperlipidemia, treated, cholesterol 86, LDL 39 10. Insulin-dependent diabetes mellitus type 2, preoperative hemoglobin A1c 7.8% 11. Obesity 12. Obstructive sleep apnea without CPAP use 13. Moderate COPD, FEV1 59% of predicted 14. Asthma 15. Previous tobacco dependence 16. Benign prostatic hypertrophy, currently on Flomax, Cardura, Proscar 17. UTIs with pseudomonas in 01/2020 18. Gout 19. Bilateral internal carotid stenosis 50-70% Plan: 1. Continue to monitor results of blood cultures sent yesterday 01/24/2022, remains negative to date 2. Cardiac rhythm management, transvenous temporary pacemaker management per cardiology recommendations 3. Encourage use of his incentive spirometry 10 times every hour while awake. Bronchodilators per pulmonology 4. Patient remains on absolute bedrest due to TTP 5. Continue ampicillin and Rocephin per infectious disease recommendations. 6. GI and DVT prophylaxis 7. Our plan is for redo aortic valve replacement possible aortic root replacement on , 01/31/2022 to be performed by Dr. Yamileth Lopez 8. Medical management of other comorbidities per primary care service 9. More recommendations to follow
[2022-01-30] MEDS: CALCIUM CARBONATE 500 MG CHEWABLE PO SCH ×2 (08:09→21:24)
[2022-01-30] MEDS: SENNOSIDES-DOCUSATE SODIUM 1 EACH TAB PO SCH (08:09)
[2022-01-30] MEDS: allopurinoL 100 MG TAB PO SCH (08:09)
[2022-01-30] MEDS: FUROSEMIDE 40 MG TAB PO SCH (08:09)
[2022-01-30] MEDS: ASPIRIN 81 MG PO SCH (08:09)
[2022-01-30] MEDS: TAMSULOSIN 0.4 MG CAP.ER.24H PO SCH (08:09)
[2022-01-30] MEDS: MAGNESIUM OXIDE 400 MG TAB PO SCH (08:09)
[2022-01-30] MEDS: MONTELUKAST 10 MG TAB PO SCH (08:09)
[2022-01-30] MEDS: hydroCHLOROthiazide 25 MG TAB PO SCH (08:10)
[2022-01-30] MEDS: HEPARIN SODIUM,PORCINE/PF 5,000 UNIT/0.5 ML SYRINGE SQ SCH ×2 (08:10→21:25)
[2022-01-30] MEDS: FINASTERIDE 5 MG TAB PO SCH (08:11)
[2022-01-30] MEDS: DOXAZOSIN 4 MG TAB PO SCH ×2 (08:11→21:24)
[2022-01-30] MEDS: DAPAGLIFLOZIN PROPANEDIOL 10 MG TABLET PO SCH (08:12)
[2022-01-30] MEDS: GLIMEPIRIDE 2 MG TAB PO SCH ×2 (08:12→21:24)
--- NOTE | 2022-01-30 11:14 | P.PN ---
Subjective Progress Note Date: 01/30/22 Principal diagnosis: Endocarditis. Patient was reevaluated today on 01/25/22 patient remains in the ICU, remains on broad-spectrum antibiotics, he is hemodynamically stable, not in any form of distress, not requiring any pressors or any inotropes. Remains on ampicillin and Rocephin as recommended by infectious disease for his Enterococcus faecalis endocarditis. His labs today are basically unremarkable. Patient is being considered for surgical intervention by cardiothoracic surgery. Labs today were basically unremarkable including relatively normal CBC and normal basic metabolic profile Reevaluated today on 01/26/22, patient remains in the ICU, has been seen by many consultants, patient is to be seen by thoracic surgery today, apparently cardiology declined repeating is REESE, and felt very confident that the patient has endocarditis, and no need to repeat his REESE. Patient is being considered for transfer to another tertiary care center but he is yet to be seen by cardiothoracic surgery. In the meantime the patient seems to be hemodynamically stable, he is on room air, not in any distress. Reevaluated today on 01/27/22, patient is in the ICU, scheduled to undergo cardiac catheterization today. Patient is being worked up and possibly to undergo redo aortic valve replacement because of the endocarditis and he had evidence of new AV block. Today the patient will likely have placement of a temporary pacemaker since his previous temporary pacemaker is nonfunctional. Patient denies any pulmonary symptoms. No cough no wheezing no shortness of breath. Progress note dated 01/28/2022. This is a 76-year-old male who was admitted on January 24, with aortic valve endocarditis, secondary to enterococcus faecalis. The patient remains on antibiotics in the form of ampicillin and Rocephin. The patient is not receiving any supplemental oxygen. The patient is getting saline fluid, at 30 mL an hour. The patient may end up going to the operating room tomorrow for aortic valve replacement. The surgeon has not made up his mind as yet. He had a previous aortic valve replacement 4 years ago. Lab data includes a white count 6.4, hemoglobin 11.5, hematocrit 35.1, and normal platelet count. Electrolyte profile is completely normal. Calcium is 8.2. Blood cultures here are thus far negative. Progress note dated 01/29/2022. 76-year-old male admitted on January 24, with aortic valve endocarditis, secondary to Enterococcus faecalis. The patient remains on antibiotics in the form of both ampicillin and Rocephin. He is not receiving any supplemental oxygen. The patient is getting saline at 30 mL an hour. He has not yet been seen by cardiothoracic surgery. At the current time, there is no plans for aortic valve replacement. He had a previous aortic valve replacement, 4 years ago. Current labs show white count of 5.3, hemoglobin 11.7, hematocrit 35.8, and a normal platelet count. Sodium, potassium, chloride, CO2, BUN, and creatin ine are all normal. Progress note dated 01/30/2022. 76-year-old male, admitted on January 24, with prostatic valve endocarditis, involving the aortic valve. The patient's bacteria was Enterococcus faecalis. He apparently is being readied for possible aortic valve replacement, on January 31. He is on room air. He is getting saline at 30 mL an hour. He is resting comfortably without complaints. Laboratory data today includes a white count 6.1, hemoglobin 11.7, hematocrit 35.3, platelet count 237,000. Sodium 137, potassium 4.3, chlorides 105, CO2 25, BUN 16, creatinine 1.08. Objective - Vital Signs Vital signs: Vital Signs Temp 98.8 F 01/30/22 04:00 Pulse 66 01/30/22 07:00 Resp 12 01/30/22 07:00 BP 140/67 01/30/22 07:00 Pulse Ox 97 01/30/22 07:49 FiO2 21 01/30/22 07:49 Intake & Output 01/29/22 01/30/22 01/30/22 18:59 06:59 18:59 Intake Total 1160 1360 260 Output Total 2200 2270 700 Balance -1040 -910 -440 Weight 108.5 kg 109.2 kg Intake: IV 360 710 260 0.9NS 360 360 60 Ampicillin 2,000 mg In 300 100 Sodium Chloride 0.9% 100 ml @ 200 mls/hr IVPB Q4HR [facility] Rx#:[id number] cefTRIAXone 2 gm In 50 100 Sodium Chloride 0.9% 50 ml @ 100 mls/hr IVPB Q12HR [facility] Rx#:[id number] Oral 800 650 Output: Urine 2200 2270 700 Other: Voiding Method External Catheter External Catheter External Catheter - Exam No acute distress, oriented 3. Currently not requiring any supplemental oxygen. HEENT examination is grossly unremarkable. Neck supple. Full range of motion. No adenopathy thyromegaly or neck vein distention. Cardiovascular examination reveals regular rhythm rate. S1-S2 normal. No S3 or S4. A soft systolic murmur is noted. Heart rate 66 bpm. Lungs reveal clear breath sounds. Breath sounds are equal bilaterally. No adventitious lung sounds including wheezes rhonchi or crackles. Saturations on room air are 97 %. Abdomen soft bowel sounds are heard. No masses or tenderness. Extremities are intact. No cyanosis clubbing or edema. Skin is without rash or lesion. Neurologic examination is brief but nonfocal. - Labs CBC & Chem 7: 01/30/22 03:52 01/30/22 03:52 Labs: Abnormal Lab Results - Last 24 Hours (Table) 01/29/22 01/29/22 01/29/22 Range/Units 11:21 16:43 20:14 RBC (4.30-5.90) m/uL Hgb (13.0-17.5) gm/dL Hct (39.0-53.0) % Glucose (74-99) mg/dL POC Glucose (mg/dL) 117 H 174 H 177 H (70-110) mg/dL Crossmatch 01/30/22 01/30/22 01/30/22 Range/Units 03:52 03:52 03:52 RBC 3.75 L (4.30-5.90) m/uL Hgb 11.7 L (13.0-17.5) gm/dL Hct 35.3 L (39.0-53.0) % Glucose 133 H (74-99) mg/dL POC Glucose (mg/dL) (70-110) mg/dL Crossmatch See Detail Microbiology - Last 24 Hours (Table) 01/24/22 15:19 Blood Culture - Preliminary Blood No Growth after 120 hours 01/24/22 15:19 Blood Culture - Preliminary Blood No Growth after 120 hours Assessment and Plan Assessment: Acute prosthetic aortic valve endocarditis, secondary to Enterococcus faecalis. Prior history of aortic valve replacement, 4 years ago for aortic stenosis. High-grade AV block, secondary to endocarditis. Acute encephalopathy, secondary to endocarditis and sepsis. History of COPD, stable. Essential hypertension. Type 2 diabetes mellitus. BPH. Seasonal ALLERGIC rhinitis. Plan: Plan dated 01/28/2022. The patient will be evaluated by the surgeon later today, and may end up going back to the operating room, for his aortic valve endocarditis. The patient's blood cultures at the outside hospital were positive for Enterococcus faecalis. Currently the cultures here are negative. The patient remains on ampicillin and Rocephin. We will continue to follow make recommendations along the way. Prognosis is guarded. Labs, x-rays, and medications are all reviewed. Plan dated 01/29/2022. The patient is awaiting to see the surgeon. No decision has been made in regards to surgery. The patient remains on antibiotics. Cultures at this hospital have been negative. Labs, x-rays, and medications are reviewed. Prognosis is certainly guarded. Plan dated 01/30/2022. The patient apparently is going to have aortic valve replacement tomorrow. This is according to the nurse. The patient is stable. No hemodynamic or respir atory issues. Labs, x-rays, medications are reviewed. His respiratory status is certainly stable. We will continue to follow after the procedure. Time with Patient: Less than 30
[2022-01-30 12:10] LABS: Glucose,Whole Blood 106 mg/dL (70-110)
--- NOTE | 2022-01-30 12:50 | PN ---
PROGRESS NOTE SUBJECTIVE: Mr. Pereira is a patient with aortic valve endocarditis, complete AV block on a permanent pacemaker, and I am reducing the backup rate of the pacemaker to 50 beats per minute. The patient has underlying AV block, but sometimes, there is 1:1 conduction on looking at the rhythm strips. He is hemodynamically stable on antibiotics, as advised by Infectious Disease specialist, Dr. Cunningham. The patient is awaiting further input from Dr. Lopez, who will see him hopefully today. OBJECTIVE: VITAL SIGNS: Stable. NECK: No JVD. HEART: S1, S2 with a short systolic murmur at the base. LUNGS: Reveal improved air entry. ABDOMEN: Exam is unchanged. LOWER EXTREMITIES: Exam is unchanged. MMODL / IJN: [id number] /
--- NOTE | 2022-01-30 16:04 | P.PN ---
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 On today's evaluation that is 01-28-2022 the patient continues to be afebrile, the patient is breathing comfortably on room air, the patient did have occasional cough but not bringing up any sputum no nausea no vomiting no abdominal pain no diarrhea Objective - Vital Signs Vital signs: Vital Signs Temp 98.3 F 01/28/22 08:00 Pulse 71 01/28/22 09:00 Resp 20 01/28/22 09:00 BP 157/77 01/28/22 09:00 Pulse Ox 94 L 01/28/22 09:00 FiO2 Intake & Output 01/27/22 01/28/22 01/28/22 18:59 06:59 18:59 Intake Total 900 760 90 Output Total 2150 875 750 Balance -1250 -115 -660 Weight 109.6 kg Intake: IV 900 760 90 0.9NS 450 360 90 Ampicillin 2,000 mg In 300 300 Sodium Chloride 0.9% 100 ml @ 200 mls/hr IVPB Q4HR [facility] Rx#:[id number] cefTRIAXone 2 gm In 50 100 Sodium Chloride 0.9% 50 ml @ 100 mls/hr IVPB Q12HR [facility] Rx#:[id number] Output: Urine 2150 875 750 Other: Voiding Method Urinal External Catheter External Catheter # Voids 1 0 0 # Bowel Movements 1 - Exam GENERAL DESCRIPTION: Elderly male lying in bed, no distress. No tachypnea or accessory muscle of respiration use. LUNGS: Unlabored breathing. Decreased breath sound at the base HEART: S1, S2, regular rate and rhythm. No loud murmur ABDOMEN: Soft, no tenderness , guarding or rigidity, no organomegaly EXTREMITIES: No edema of feet. - Labs CBC & Chem 7: 01/30/22 03:52 01/30/22 03:52 Labs: Abnormal Lab Results - Last 24 Hours (Table) 01/27/22 01/27/22 01/27/22 Range/Units 12:10 16:48 20:03 RBC (4.30-5.90) m/uL Hgb (13.0-17.5) gm/dL Hct (39.0-53.0) % POC Glucose (mg/dL) 112 H 196 H 192 H (70-110) mg/dL Calcium (8.4-10.2) mg/dL 01/28/22 01/28/22 01/28/22 Range/Units 03:12 03:12 06:43 RBC 3.72 L (4.30-5.90) m/uL Hgb 11.5 L (13.0-17.5) gm/dL Hct 35.1 L (39.0-53.0) % POC Glucose (mg/dL) 126 H (70-110) mg/dL Calcium 8.2 L (8.4-10.2) mg/dL Microbiology - Last 24 Hours (Table) 01/24/22 15:19 Blood Culture - Preliminary Blood No Growth after 72 hours 01/24/22 15:19 Blood Culture - Preliminary Blood No Growth after 72 hours Assessment and Plan (1) Endocarditis Current Visit: Yes Status: Acute Code(s): I38 - ENDOCARDITIS, VALVE UNSPECIFIED SNOMED Code(s): 03278285 Plan: 1-patient with Enterococcus faecalis bacteremia secondary to bioprosthetic aortic valve endocarditis now with development of complication with bradycardia arrhythmia concerning for aortic root abscess s/p temporary pacemaker placement And the patient is status postcardiac cath completed on 01/27/2022 in preparation for aortic valve surgery, patient is currently being treated with ampicillin and Rocephin blood culture has been negative and monitor clinical course closely Time with Patient: Less than 30
--- NOTE | 2022-01-30 16:05 | P.PN ---
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 On today's evaluation that is 01-29-2022 the patient denies any fever or any chills, the patient is breathing comfortably on room air, the patient did have occasional dry cough, the patient denies nausea no vomiting no abdominal pain no diarrhea Objective - Vital Signs Vital signs: Vital Signs Temp 98.7 F 01/29/22 12:00 Pulse 51 L 01/29/22 13:00 Resp 16 01/29/22 13:00 BP 158/77 01/29/22 13:00 Pulse Ox 95 01/29/22 12:00 FiO2 Intake & Output 01/28/22 01/29/22 01/29/22 18:59 06:59 18:59 Intake Total 360 1560 760 Output Total 1250 1550 1450 Balance -890 10 -690 Weight 108.5 kg Intake: IV 360 710 210 0.9NS 360 360 210 Ampicillin 2,000 mg In 300 Sodium Chloride 0.9% 100 ml @ 200 mls/hr IVPB Q4HR [facility] Rx#:[id number] cefTRIAXone 2 gm In 50 Sodium Chloride 0.9% 50 ml @ 100 mls/hr IVPB Q12HR [facility] Rx#:[id number] Oral 850 550 Output: Urine 1250 1550 1450 Other: Voiding Method External Catheter External Catheter External Catheter # Voids 0 1 # Bowel Movements 1 0 - Exam GENERAL DESCRIPTION: Elderly male lying in bed, no distress. No tachypnea or accessory muscle of respiration use. LUNGS: Unlabored breathing. Decreased breath sound at the base HEART: S1, S2, regular rate and rhythm. No loud murmur ABDOMEN: Soft, no tenderness , guarding or rigidity, no organomegaly EXTREMITIES: No edema of feet. - Labs CBC & Chem 7: 01/30/22 03:52 01/30/22 03:52 Labs: Abnormal Lab Results - Last 24 Hours (Table) 01/28/22 01/28/22 01/29/22 Range/Units 16:30 20:37 03:50 RBC 3.77 L (4.30-5.90) m/uL Hgb 11.7 L (13.0-17.5) gm/dL Hct 35.8 L (39.0-53.0) % Glucose (74-99) mg/dL POC Glucose (mg/dL) 171 H 194 H (70-110) mg/dL 01/29/22 01/29/22 Range/Units 03:50 11:21 RBC (4.30-5.90) m/uL Hgb (13.0-17.5) gm/dL Hct (39.0-53.0) % Glucose 122 H (74-99) mg/dL POC Glucose (mg/dL) 117 H (70-110) mg/dL Microbiology - Last 24 Hours (Table) 01/24/22 15:19 Blood Culture - Preliminary Blood No Growth after 96 hours 01/24/22 15:19 Blood Culture - Preliminary Blood No Growth after 96 hours Assessment and Plan (1) Endocarditis Current Visit: Yes Status: Acute Code(s): I38 - ENDOCARDITIS, VALVE UNSPECIFIED SNOMED Code(s): 87043357 Plan: 1-patient with Enterococcus faecalis bacteremia secondary to bioprosthetic aortic valve endocarditis now with development of complication with bradycardia arrhythmia concerning for aortic root abscess s/p temporary pacemaker placement And the patient is status postcardiac cath completed on 01/27/2022 in preparation for aortic valve surgery, patient to continue ampicillin and Rocephin blood culture has been negative and continue with supportive care Time with Patient: Less than 30
--- NOTE | 2022-01-30 16:07 | P.PN ---
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 On today's evaluation that is 01-30-2022 the patient remains to be afebrile, the patient is breathing comfortably on room air, the patient denies any chest pain shortness of breath or cough, the patient denies having any nausea no vomiting no abdominal pain no diarrhea Objective - Vital Signs Vital signs: Vital Signs Temp 98 F 01/30/22 12:00 Pulse 57 L 01/30/22 15:00 Resp 26 H 01/30/22 15:00 BP 140/68 01/30/22 15:00 Pulse Ox 96 01/30/22 15:00 FiO2 21 01/30/22 07:49 Intake & Output 01/29/22 01/30/22 01/30/22 18:59 06:59 18:59 Intake Total 1160 1360 830 Output Total 2200 2270 2550 Balance -1040 -910 -1720 Weight 108.5 kg 109.2 kg Intake: IV 360 710 470 0.9NS 360 360 270 Ampicillin 2,000 mg In 300 100 Sodium Chloride 0.9% 100 ml @ 200 mls/hr IVPB Q4HR [facility] Rx#:[id number] cefTRIAXone 2 gm In 50 100 Sodium Chloride 0.9% 50 ml @ 100 mls/hr IVPB Q12HR [facility] Rx#:[id number] Oral 800 650 360 Output: Urine 2200 2270 2550 Other: Voiding Method External Catheter External Catheter External Catheter - Exam GENERAL DESCRIPTION: Elderly male lying in bed, no distress. No tachypnea or accessory muscle of respiration use. LUNGS: Unlabored breathing. Decreased breath sound at the base HEART: S1, S2, regular rate and rhythm. No loud murmur ABDOMEN: Soft, no tenderness , guarding or rigidity, no organomegaly EXTREMITIES: No edema of feet. - Labs CBC & Chem 7: 01/30/22 03:52 01/30/22 03:52 Labs: Abnormal Lab Results - Last 24 Hours (Table) 01/29/22 01/29/22 01/30/22 Range/Units 16:43 20:14 03:52 RBC (4.30-5.90) m/uL Hgb (13.0-17.5) gm/dL Hct (39.0-53.0) % Glucose (74-99) mg/dL POC Glucose (mg/dL) 174 H 177 H (70-110) mg/dL Crossmatch See Detail 01/30/22 01/30/22 Range/Units 03:52 03:52 RBC 3.75 L (4.30-5.90) m/uL Hgb 11.7 L (13.0-17.5) gm/dL Hct 35.3 L (39.0-53.0) % Glucose 133 H (74-99) mg/dL POC Glucose (mg/dL) (70-110) mg/dL Crossmatch Microbiology - Last 24 Hours (Table) 01/24/22 15:19 Blood Culture - Preliminary Blood No Growth after 120 hours 01/24/22 15:19 Blood Culture - Preliminary Blood No Growth after 120 hours Assessment and Plan (1) Endocarditis Current Visit: Yes Status: Acute Code(s): I38 - ENDOCARDITIS, VALVE U NSPECIFIED SNOMED Code(s): 60529390 Plan: 1-patient with Enterococcus faecalis bacteremia secondary to bioprosthetic aortic valve endocarditis now with development of complication with bradycardia arrhythmia concerning for aortic root abscess s/p temporary pacemaker placement And the patient is status postcardiac cath completed on 01/27/2022 in preparation for aortic valve surgery 2- patient is scheduled for surgery tomorrow and the patient will continue current antibiotic treatment of ampicillin and Rocephin blood culture has been negative and continue with supportive care Time with Patient: Less than 30
[2022-01-30 16:45] LABS: Glucose,Whole Blood 163 mg/dL (70-110)
[2022-01-30 21:24] LABS: Glucose,Whole Blood 166 mg/dL (70-110)
[2022-01-30] MEDS: ATORVASTATIN 40 MG TAB PO SCH (21:24)
[2022-01-30] MEDS: INSULIN DETEMIR (LEVEMIR) 100 UNIT/ML SYR SQ SCH (21:25)
[2022-01-31] MEDS: AMPICILLIN 2,000 MG in SODIUM CHLORIDE 0.9% 100 ML IVPB SCH ×7 (00:22→22:58)
[2022-01-31] MEDS ORDERED: HEPARIN SODIUM 1,000 UN/ML (10ML VL) IV ONE (05:00)
[2022-01-31] MEDS ORDERED: MANNITOL 25% 12.5 GM/50 ML VIAL IV ONE ×2 (05:00)
[2022-01-31] MEDS ORDERED: TRANEXAMIC ACID 2,000 MG in SODIUM CHLORIDE 0.9% 80 ML IV ONE ×4 (05:00)
[2022-01-31] MEDS ORDERED: SODIUM BICARB 8.4% 50 ML SYR (1 MEQ/ML) IV ONE (05:00)
[2022-01-31] MEDS ORDERED: HEPARIN SODIUM,PORCINE 5,000 UNIT in SODIUM CHLORIDE 0.9% 500 ML 500 ML IV ONE (05:00)
[2022-01-31] MEDS ORDERED: ATORVASTATIN 10 MG TAB PO ONE (05:00)
[2022-01-31] MEDS ORDERED: PHENYLEPHRINE 10 MG/ML VIAL IV ONE (05:00)
[2022-01-31] MEDS ORDERED: NOREPINEPHRINE 4 MG in SODIUM CHLORIDE 0.9% 250 ML IV SCH ×2 (05:00→14:36)
[2022-01-31] MEDS ORDERED: NITROGLYCERIN-D5W PMX 50 MG in DEXTROSE/WATER 1 250ML.BAG IV SCH (05:00)
[2022-01-31] MEDS ORDERED: CHLORHEXIDINE GLUCONATE 15 ML CUP MUCOUS MEM ONE (05:00)
[2022-01-31] MEDS ORDERED: ALBUMIN HUMAN 25% 50 ML in EMPTY BAG 1 BAG IVPB ONE (05:00)
[2022-01-31] MEDS ORDERED: ELECTROLYTE-A SOLUTION 1,000 ML with POTASSIUM CHLORIDE 100 MEQ, MAGNESIUM SULFATE 16 M... IV SCH ×5 (05:00)
[2022-01-31] MEDS ORDERED: ALBUMIN HUMAN 5% 500 ML in EMPTY BAG 1 BAG IVPB ONE ×6 (05:00)
[2022-01-31] MEDS ORDERED: PHENYLEPHRINE 40 MG in SODIUM CHLORIDE 0.9% 250 ML IV ONE (05:00)
[2022-01-31] MEDS ORDERED: PROTAMINE SULFATE 10 MG/ML 25 ML VIAL IV ONE (05:00)
[2022-01-31] MEDS ORDERED: ELECTROLYTE-A SOLUTION 1,000 ML with POTASSIUM CHLORIDE 40 MEQ, MAGNESIUM SULFATE 16 ME... IV SCH ×5 (05:00)
[2022-01-31] MEDS ORDERED: CLEVIDIPINE BUTYRATE 25 MG in EMPTY BAG 1 BAG IV SCH (05:00)
[2022-01-31] MEDS ORDERED: NITROGLYCERIN-D5W PMX 25 MG/250 ML BTL IV ONE (05:00)
[2022-01-31] MEDS ORDERED: ceFAZolin 1,000 MG in SODIUM CHLORIDE 0.9% IRRIGATIO 1,000 ML IRRIGATION ONE (05:00)
[2022-01-31] MEDS ORDERED: PROTAMINE SULFATE 250 MG in EMPTY BAG 1 BAG IV ONE (05:00)
[2022-01-31] MEDS ORDERED: MAGNESIUM SULFATE 16.24 MEQ in EMPTY SYRINGE 1 SYR IV ONE (05:00)
[2022-01-31] MEDS ORDERED: ASPIRIN 325 MG TAB PO ONE (05:00)
[2022-01-31] MEDS ORDERED: CALCIUM CHLORIDE 100 MG/ML 10 ML SYRINGE IVP ONE (05:00)
[2022-01-31] MEDS ORDERED: INSULIN REGULAR 100 UNIT in SODIUM CHLORIDE 0.9% 100 ML IV SCH (05:00)
[2022-01-31 06:32] LABS: Basophils # (A) 0.1 k/uL (0-0.2); Basophils % (A) 1 %; Eosinophils # (A) 0.1 k/uL (0-0.7); Eosinophils % (A) 2 %; HCT 33.5 % (39.0-53.0); HGB 11.1 gm/dL (13.0-17.5); Hypochromasia Slight; Lymphocytes % (A) 20 %; MCHC 33.1 g/dL (31.0-37.0); MCV 93.6 fL (80.0-100.0); Monocytes # (A) 0.4 k/uL (0-1.0); Monocytes % (A) 8 %; Neutrophils # (A) 3.4 k/uL (1.3-7.7); Neutrophils % (A) 67 %; Platelet Count 246 k/uL (150-450); RBC 3.58 m/uL (4.30-5.90); RDW 14.6 % (11.5-15.5)
[2022-01-31 06:51] LABS: Calcium 8.4 mg/dL (8.4-10.2); Potassium 4.4 mmol/L (3.5-5.1)
[2022-01-31] MEDS: SYMBICORT 160-4.5 MCG INHALER INHALATION SCH ×2 (07:35→20:42)
[2022-01-31] MEDS ORDERED: VECURONIUM 10 MG VIAL IV ONE (07:51)
[2022-01-31] MEDS ORDERED: BUMETANIDE 0.25 MG/ML 4 ML VIAL ONE (07:51)
[2022-01-31] MEDS ORDERED: HEPARIN SODIUM,PORCINE 10,000 UNIT/ML 1 ML VIAL ONE (07:51)
[2022-01-31] MEDS ORDERED: PROPOFOL 10 MG/ML 20 ML VIAL IV ONE (07:51)
[2022-01-31] MEDS ORDERED: SODIUM CHLORIDE 0.9% IRRIG 1,000 ML BTL IRRIGATION ONE (07:51)
[2022-01-31] MEDS ORDERED: MAGNESIUM SULFATE 4 MEQ/ML 10ML VIAL ONE (07:51)
[2022-01-31] MEDS ORDERED: TRANEXAMIC ACID IN NACL,ISO-OS 1,000 MG/100 ML BAG ONE (07:51)
[2022-01-31] MEDS ORDERED: MIDAZOLAM HCL 10 MG/10 ML VIAL ONE (07:51)
[2022-01-31] MEDS ORDERED: ELECTROLYTE-R (PH 7.4) 1,000 ML IV.SOLN IV ONE (07:51)
[2022-01-31] MEDS ORDERED: LIDOCAINE 2% SYG (PF) 100 MG/5 ML ONE (07:51)
--- NOTE | 2022-01-31 08:07 | P.PN ---
Subjective Progress Note Date: 01/30/22 HISTORY OF PRESENT ILLNESS This is a 76-year-old male patient with past medical history of hypertension with hypertensive cardiovascular disease, hyperlipidemia, diabetes mellitus type 2 with diabetic polyneuropathy, enlarged prostate, history of aortic valve disease status post aortic valve replacement with a 23 mm valve on 12/04/2017, prior to that, left heart catheterization revealed 30-40% stenosis in the RCA in 2018, history of melanoma status post resection 12/07/2021, from the back. Patient initially presented to [facility] with mental status changes with significant encephalopathy. CAT scan of the brain did not show any acute infarct or bleed. Patient did have leukocytosis and low-grade fever. He is status post IV fluid resuscitation, he was started on IV antibiotics initially in the form of Levaquin and subsequently changed to ampicillin and cef triaxone by Dr. Cunningham. EKG did not show any evidence of acute changes. CAT scan of the chest abdomen and pelvis showed some perinephric stranding without evidence of hydronephrosis, there was evidence of diverticulosis without diverticulitis. CAT scan of the chest showed evidence of cardiomegaly with bilateral pleural effusion and possible pulmonary fibrosis. CAT scan of the cervical spine did show evidence of spondylosis of cervical spine without evidence of fracture. CAT scan of the brain showed brain atrophy without evidence of acute infarct or bleed, small vessel disease present. Patient was initially admitted to [facility] where he was followed by infectious disease as well as cardiology. He underwent a REESE on 01/22 revealed left ventricular systolic function normal at 55-60%, small aortic valve vegetation was present measuring 0.53 cm. Patient has bioprosthetic aortic valve. Moderate MR, [id number] tricuspid regurgitation, no pericardial effusion. Patients blood cultures were positive for enterococcus species. Patient was in a sinus rhythm with a first-degree AV block but subsequently developed a high-grade AV block on 01/24 with progressive worsening of the AV block and PVCs. Patient is complaining of left lower rib cage chest discomfort. No palpitations or dizziness. Patient was then transferred to [facility] to be evaluated by cardiothoracic surgery team. Patient is seen today in the intensive care unit, consults added for cardiology, tile and marble setter, cardiothoracic surgery. 01/25: Patient is seen today in the ICU. He states he slept well last night. He states he is better able to take a deep breath with less pain on his left chest wall. He is able to reach 1500 MLS on incentive spirometry. He is complaining of tingling in bilateral feet. Has not had a bowel movement but feels that he needs to today. Senokot scheduled added. Blood sugar was low this morning and glimepiride decreased to 2 mg twice daily and Levemir decreased to 20 units. Patient has an external catheter in place draining clear emily urine. He has been evaluated by cardiology, cardiothoracic surgery and tile and marble setter. Cardiology is planning for temporary pacemaker. C plan to continue close monitoring in the intensive care unit, monitor results of the blood cultures.hest x-ray reveals postoperative changes similar to prior exam. There may be some interstitial changes. Carotid ultrasound reveals slight elevated velocity in the internal carotid arteries bilaterally suggestive of 50-70 percent stenosis. There is antegrade flow in the vertebral arteries. Panorex CAT scan completed without any significant abnormalities. Arterial ultrasound bilateral lower extremities revealed normal ankle brachial indices. 01/26: Patient is lying down in bed in no acute distress, yesterday underwent temporary TVP for 2nd degree AV block, plan is to repeat REESE for further evaluation of possible abscess formation and the degree of involvement of the aortic ring of the bioprosthetic aortic valve, we will continue with IV Rocephin and Ampicillin for now, repeated blood cltures from 01/24/2022 still no growth so far, also nasal screen negative for MSSA.MRSA, bedside spirometer showed FEV2 38 % of predicted, we will continue with aggressive pulmonary toiletting, patient has been seen by multiple services , prognosis continues to be guarded, spoke with his daughter and his over the phone , they are contemplating if he should go to a [place] [facility] like [facility] or [facility], our cardiothoracic team is involved and hopefully will see patient today and alleviate his concerns and give their recommendations on surgical intervention. 01/28: The patient remains in the intensive care unit patient has been afebrile, heart rate 70s, blood pressure 157/77, pulse ox 94% on room air. cafeteria monitor is a paced rhythm. Cardiac catheterization, performed on 01/27, reveals moderate disease in the mid RCA, no evidence of high-grade stenosis in the LAD or left circumflex and placement of a temporary pacemaker. Patient will be seen by a dentist this afternoon. He is utilizing his incentive spirometry regularly and reaching 2000 2500. He is eating all of his food. He states he had a bowel movement yesterday and today. He is urinating without any difficulty. Patient is expecting to be seen by Dr. Lopez to discuss surgical options. WBC 6.4, hemoglobin 0.5, platelet count 235. BMP within normal limits. Calcium 8.2. Capillary blood glucose running between 126 and 196. Blood culture obtained on 01/24 showing no growth after 72 hours 1 specimen. 01/29: Patient was seen by the dentist yesterday and was cleared by surgery. He complains of dry mouth when he woke up this morning but otherwise no new complaints. cafeteria monitor is paced rhythm. Pulse ox 95% on room air. Blood pressure elevated 182/87. Hydrochlorothiazide 25 mg added to his blood pressure regime. Repeat blood work reveals WBC 5.3, hemoglobin 11.7, platelet count 230. Electrolytes and renal function normal. Capillary blood glucose running between 97-194. Patient is waiting to hear from the cardiothoracic team regarding plan for surgery. 01/30: Patient is scheduled for redo aortic valve replacement, possible aortic root replacement on 01/31. a consult was added for urology yesterday for recurrent UTIs. Patient denies dysuria, he is able to void spontaneously and is maintained on Flomax and Proscar. Dr. Farooq believes the culture from 2019 is contamination rather than actual UTI with history of phimosis contributing to positive culture. Plan to follow up with Dr. Emmanuel as normally scheduled. patient is continued on antibiotics the form of ampicillin and Rocephin. patient has remained afebrile. Pulse ox is 97% on room air. CM paced rhythm. Blood pressure 140/67 and has been improved overnight with addition of hydrochlorothiazide yesterday. Repeat blood work reveals WBC 6.1, hemoglobin 11.7, platelet count 237. Electrolytes and renal function are normal with creatinine of 1.08. White blood glucose running between 109 and 177. REVIEW OF SYSTEMS Constitutional: No fever, no chills, no night sweats. No weight change. No weakness, denies fatigue no lethargy. No daytime sleepiness. EENT: No headache. No blurred vision or double vision, no loss of vision. No loss of Hearing, no ringing in the ears, no dizziness. No nasal drainage or congestion. No epistaxis. No sore throat. Lungs: No shortness of breath, cough, no sputum production. No wheezing. Cardiovascular: Reports left sided rib chest pain-improved, no lower extremity edema. No palpitations. No paroxysmal nocturnal dyspnea. No orthopnea. No lightheadedness or dizziness. No syncopal episodes. Abdominal: No abdominal pain. No nausea, vomiting. No diarrhea. No constipation. No bloody or tarry stools. No loss of appetite. Genitourinary: No dysuria, increased frequency, urgency. No urinary retention. Musculoskeletal: No myalgias. No muscle weakness, no gait dysfunction, no frequent falls. No back pain. No neck pain. Integumentary: No wounds, no lesions. No rash or pruritus. No unusual bruising. Neurologic: No aphasia. No facial droop. No change in mentation. No head injury. No headache. No paralysis. No paresthesia. Psychiatric: No depression. No anxiety. No mood swings. Endocrine: No abnormal blood sugars. No weight change. No excessive sweating or thirst. No cold intolerance. PHYSICAL EXAMINATION Gen: This is a 76-year-old male. He is resting in ICU bed and appears to be in no acute distress. HEENT: Head is atraumatic, normocephalic. Pupils equal, round. Sclerae is anicteric. NECK: Supple. No JVD. No lymphadenopathy. No thyromegaly. LUNGS: Clear to auscultation. No wheezes or rhonchi. No intercostal retractions. HEART: First heart sound is depressed, second heart sound is normal, aortic valve click, systolic ejection murmur 2/6 at the left sternal border.. ABDOMEN: Soft. Bowel sounds are present. No masses. No tenderness. EXTREMITIES: No pedal edema. No calf tenderness. Dorsalis pedis +2 bilaterally. NEUROLOGICAL: Patient is awake, alert and oriented x3. Cranial nerves 2 through 12 are grossly intact. Muscle power 4 out of 5 upper and lower extremities bilaterally. ASSESSMENT AND PLAN 1. 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 Patients mental status is back to baseline. Patient admitted into the intensive care unit, consult in place with tile and marble setter, infectious disease, cardiothoracic surgery. Continue patient on ampicillin 2 g IV piggyback every 4 hours, ceftriaxone 2 g IV piggyback every 12 hours. Monitor for blood culture results which repeats have been negative thus far. Plan for redo aortic valve replacement on . 2. High-grade AV block. Patient was transferred to [facility], S/P TVP was placed. 3. Mild elevation in troponin secondary to sepsis, stable. S/p repeat [facility]. 4. Hypertension with hypertensive cardiovascular disease. Continue patient on losartan 100 mg daily, hydralazine 100 mg 3 times daily, amlodipine 5 mg twice daily, Cardura 8 mg twice daily, Lasix 40 mg daily, add hydrochlorothiazide 25 mg daily. 5. Hyperlipidemia. Continue atorvastatin 40 mg at bedtime. 6. Diabetes mellitus type 2, uncontrolled with hypoglycemia. Continue patient on Levemir 20 units at bedtime, NovoLog scale before meals and at bedtime, glimepiride decreased to 2 mg twice daily, Farxiga 10 mg daily. 7. Benign prostatic hypertrophy. Continue Flomax 0.4 mg daily, continue finasteride 5 mg daily 8. 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 Continue patient on Symbicort 160- 4.5 g 2 puffs twice daily, albuterol nebulizer every 4 hours as needed for shortness of breath, reviewed bedside spirometery with FEV1 38 % of predicted. 9. ALLERGIC rhinitis. Continue Singulair 10 mg at bedtime. 10. Chronic gout. Continue allopurinol 100 mg daily. 11. DVT prophylaxis. Heparin 5000 units subcu every 12 hours. 12. GI prophylaxis. Protonix 40 mg daily. CODE STATUS: Full code. Impression and plan of care have been directed as dictated by the signing physician. Maria G Paez nurse practitioner acting as scribe for signing physician. Objective - Vital Signs Vital signs: Vital Signs Temp 98.8 F 01/30/22 04:00 Pulse 66 01/30/22 07:00 Resp 12 01/30/22 07:00 BP 140/67 01/30/22 07:00 Pulse Ox 97 01/30/22 07:49 FiO2 21 01/30/22 07:49 Intake & Output 01/29/22 01/30/22 01/30/22 18:59 06:59 18:59 Intake Total 1160 1360 30 Output Total 2200 2270 350 Balance -1040 -728 -147 Weight 108.5 kg 109.2 kg Intake: IV 360 710 30 0.9NS 360 360 30 Ampicillin 2,000 mg In 300 Sodium Chloride 0.9% 100 ml @ 200 mls/hr IVPB Q4HR [facility] Rx#:[id number] cefTRIAXone 2 gm In 50 Sodium Chloride 0.9% 50 ml @ 100 mls/hr IVPB Q12HR [facility] Rx#:[id number] Oral 800 650 Output: Urine 2200 2270 350 Other: Voiding Method External Catheter External Catheter - Labs CBC & Chem 7: 01/31/22 06:07 01/31/22 06:07 Labs: Abnormal Lab Results - Last 24 Hours (Table) 01/29/22 01/29/22 01/29/22 Range/Units 11:21 16:43 20:14 RBC (4.30-5.90) m/uL Hgb (13.0-17.5) gm/dL Hct (39.0-53.0) % Glucose (74-99) mg/dL POC Glucose (mg/dL) 117 H 174 H 177 H (70-110) mg/dL Crossmatch 01/30/22 01/30/22 01/30/22 Range/Units 03:52 03:52 03:52 RBC 3.75 L (4.30-5.90) m/uL Hgb 11.7 L (13.0-17.5) gm/dL Hct 35.3 L (39.0-53.0) % Glucose 133 H (74-99) mg/dL POC Glucose (mg/dL) (70-110) mg/dL Crossmatch See Detail Microbiology - Last 24 Hours (Table) 01/24/22 15:19 Blood Culture - Preliminary Blood No Growth after 120 hours 01/24/22 15:19 Blood Culture - Preliminary Blood No Growth after 120 hours
--- NOTE | 2022-01-31 08:09 | PN ---
PROGRESS NOTE SUBJECTIVE: Mr. Pereira apparently was seen by Dr. Lopez and is going for a redo aortic valve surgery probably tomorrow. He is resting comfortably. He still has a backup pacemaker at 50 beats per minute. His underlying rhythm is sinus with a 2:1 block. QRS is narrow. OBJECTIVE: HEART: S1, S2 heard normally. Ejection systolic murmur at the base is audible. LUNGS: Reveal improved air entry. ABDOMEN: Exam is unchanged. LOWER EXTREMITIES: Exam is unchanged. No new suggestions. We will await surgery tomorrow. MMODL / IJN: [id number] /
[2022-01-31 08:24] LABS: ABG Base Excess -0.6 mmol/L; ABG Glucose Whole Blood 123 mg/dL (75-99); ABG HCO3 25 mmol/L (21-25); ABG Hematocrit 30 % (34.0-46.0); ABG Ionized Calcium 4.7 mg/dL (4.5-5.3); ABG Lactic Acid Whole Blood 0.7 mmol/L (0.5-1.6); ABG Oxygen Saturation 99.7 % (94-97); ABG PCO2 43 mmHg (35-45); ABG PH 7.37 (7.35-7.45); ABG PO2 252 mmHg (83-108); ABG Potassium Whole Blood 3.9 mmol/L (3.4-4.5); ABG Sodium Whole Blood 140 mmol/L (135-146); ABG TCO2 26 mmol/L (19-24)
[2022-01-31] MEDS ORDERED: ceFAZolin 1,000 MG in SODIUM CHLORIDE 0.9% 1,000 ML IRRIGATION ONE (09:11)
[2022-01-31] MEDS ORDERED: SODIUM CHLORIDE 0.9% 500 ML 500 ML with HEPARIN SODIUM,PORCINE 5,000 UNIT IV ONE ×2 (09:11)
[2022-01-31 10:11] LABS: ABG Base Excess -0.2 mmol/L; ABG Glucose Whole Blood 122 mg/dL (75-99); ABG HCO3 25 mmol/L (21-25); ABG Hematocrit 29 % (34.0-46.0); ABG Ionized Calcium 4.8 mg/dL (4.5-5.3); ABG Lactic Acid Whole Blood 0.7 mmol/L (0.5-1.6); ABG Oxygen Saturation 99.4 % (94-97); ABG PCO2 44 mmHg (35-45); ABG PH 7.37 (7.35-7.45); ABG PO2 187 mmHg (83-108); ABG Potassium Whole Blood 4.2 mmol/L (3.4-4.5); ABG Sodium Whole Blood 138 mmol/L (135-146); ABG TCO2 27 mmol/L (19-24)
--- NOTE | 2022-01-31 10:56 | P.PN ---
Subjective Progress Note Date: 01/31/22 Principal diagnosis: Endocarditis. Patient was reevaluated today on 01/25/22 patient remains in the ICU, remains on broad-spectrum antibiotics, he is hemodynamically stable, not in any form of distress, not requiring any pressors or any inotropes. Remains on ampicillin and Rocephin as recommended by infectious disease for his Enterococcus faecalis endocarditis. His labs today are basically unremarkable. Patient is being considered for surgical intervention by cardiothoracic surgery. Labs today were basically unremarkable including relatively normal CBC and normal basic metabolic profile Reevaluated today on 01/26/22, patient remains in the ICU, has been seen by many consultants, patient is to be seen by thoracic surgery today, apparently cardiology declined repeating is REESE, and felt very confident that the patient has endocarditis, and no need to repeat his REESE. Patient is being considered for transfer to another tertiary care center but he is yet to be seen by cardiothoracic surgery. In the meantime the patient seems to be hemodynamically stable, he is on room air, not in any distress. Reevaluated today on 01/27/22, patient is in the ICU, scheduled to undergo cardiac catheterization today. Patient is being worked up and possibly to undergo redo aortic valve replacement because of the endocarditis and he had evidence of new AV block. Today the patient will likely have placement of a temporary pacemaker since his previous temporary pacemaker is nonfunctional. Patient denies any pulmonary symptoms. No cough no wheezing no shortness of breath. Progress note dated 01/28/2022. This is a 76-year-old male who was admitted on January 24, with aortic valve endocarditis, secondary to enterococcus faecalis. The patient remains on antibiotics in the form of ampicillin and Rocephin. The patient is not receiving any supplemental oxygen. The patient is getting saline fluid, at 30 mL an hour. The patient may end up going to the operating room tomorrow for aortic valve replacement. The surgeon has not made up his mind as yet. He had a previous aortic valve replacement 4 years ago. Lab data includes a white count 6.4, hemoglobin 11.5, hematocrit 35.1, and normal platelet count. Electrolyte profile is completely normal. Calcium is 8.2. Blood cultures here are thus far negative. Progress note dated 01/29/2022. 76-year-old male admitted on January 24, with aortic valve endocarditis, secondary to Enterococcus faecalis. The patient remains on antibiotics in the form of both ampicillin and Rocephin. He is not receiving any supplemental oxygen. The patient is getting saline at 30 mL an hour. He has not yet been seen by cardiothoracic surgery. At the current time, there is no plans for aortic valve replacement. He had a previous aortic valve replacement, 4 years ago. Current labs show white count of 5.3, hemoglobin 11.7, hematocrit 35.8, and a normal platelet count. Sodium, potassium, chloride, CO2, BUN, and creatin ine are all normal. Progress note dated 01/30/2022. 76-year-old male, admitted on January 24, with prostatic valve endocarditis, involving the aortic valve. The patient's bacteria was Enterococcus faecalis. He apparently is being readied for possible aortic valve replacement, on January 31. He is on room air. He is getting saline at 30 mL an hour. He is resting comfortably without complaints. Laboratory data today includes a white count 6.1, hemoglobin 11.7, hematocrit 35.3, platelet count 237,000. Sodium 137, potassium 4.3, chlorides 105, CO2 25, BUN 16, creatinine 1.08. Progress note dated 01/31/2022. 76-year-old male, valve replacement today. He has prosthetic valve endocardi tis, secondary to Enterococcus faecalis. The patient had an uneventful night. He was on room air before going to the operating room, and receiving saline at 30 mL an hour. Labs today include a white count 5, hemoglobin 11.1, hematocrit 33.5, and a normal platelet count. Sodium is 136, potassium 4.4, chlorides 103, CO2 24, BUN 29, creatinine 1.05. Objective - Vital Signs Vital signs: Vital Signs Temp 98.5 F 01/31/22 04:00 Pulse 54 L 01/31/22 06:00 Resp 15 01/31/22 06:00 BP 153/72 01/31/22 07:00 Pulse Ox 94 L 01/31/22 06:00 FiO2 21 01/30/22 07:49 Intake & Output 01/30/22 01/31/22 01/31/22 18:59 06:59 18:59 Intake Total 920 790 2 Output Total 7665 0560 Balance -1954 -2059 2 Weight 103.1 kg Intake: IV 560 790 2 0.9NS 360 390 Ampicillin 2,000 mg In 100 300 Sodium Chloride 0.9% 100 ml @ 200 mls/hr IVPB Q4HR [facility] Rx#:[id number] cefTRIAXone 2 gm In 100 100 Sodium Chloride 0.9% 50 ml @ 100 mls/hr IVPB Q12HR [facility] Rx#:[id number] Oral 360 Output: Urine 2875 2850 Other: Voiding Method External Catheter External Catheter # Bowel Movements 1 - Exam No acute distress, oriented 3. Currently not requiring any supplemental oxygen. HEENT examination is grossly unremarkable. Neck supple. Full range of motion. No adenopathy thyromegaly or neck vein distention. Cardiovascular examination reveals regular rhythm rate. S1-S2 normal. No S3 or S4. A soft systolic murmur is noted. Heart rate 60 bpm. Lungs reveal clear breath sounds. Breath sounds are equal bilaterally. No adventitious lung sounds including wheezes rhonchi or crackles. Saturations on room air are 94 %. Abdomen soft bowel sounds are heard. No masses or tenderness. Extremities are intact. No cyanosis clubbing or edema. Skin is without rash or lesion. Neurologic examination is brief but nonfocal. - Labs CBC & Chem 7: 01/31/22 06:07 01/31/22 06:07 Labs: Abnormal Lab Results - Last 24 Hours (Table) 01/30/22 01/30/22 01/30/22 Range/Units 03:52 16:43 21:23 RBC (4.30-5.90) m/uL Hgb (13.0-17.5) gm/dL Hct (39.0-53.0) % Sodium (137-145) mmol/L BUN (9-20) mg/dL Glucose (74-99) mg/dL POC Glucose (mg/dL) 163 H 166 H (70-110) mg/dL Crossmatch See Detail 01/31/22 01/31/22 Range/Units 06:07 06:07 RBC 3.58 L (4.30-5.90) m/uL Hgb 11.1 L (13.0-17.5) gm/dL Hct 33.5 L (39.0-53.0) % Sodium 136 L (137-145) mmol/L BUN 29 H (9-20) mg/dL Glucose 122 H (74-99) mg/dL POC Glucose (mg/dL) (70-110) mg/dL Crossmatch Microbiology - Last 24 Hours (Table) 01/24/22 15:19 Blood Culture - Final Blood No Growth after 144 hours 01/24/22 15:19 Blood Culture - Final Blood No Growth after 144 hours Assessment and Plan Assessment: Acute prosthetic aortic valve endocarditis, secondary to Enterococcus faecalis. Prior history of aortic valve replacement, 4 years ago for aortic stenosis. High-grade AV block, secondary to endocarditis. Acute encephalopathy, secondary to endocarditis and sepsis. History of COPD, stable. Essential hypertension. Type 2 diabetes mellitus. BPH. Seasonal ALLERGIC rhinitis. Plan: Plan dated 01/28/2022. The patient will be evaluated by the surgeon later today, and may end up going back to the operating room, for his aortic valve endocarditis. The patient's blood cultures at the outside hospital were positive for Enterococcus faecalis. Currently the cultures here are negative. The patient remains on ampicillin and Rocephin. We will continue to follow make recommendations along the way. Pro gnosis is guarded. Labs, x-rays, and medications are all reviewed. Plan dated 01/29/2022. The patient is awaiting to see the surgeon. No decision has been made in regards to surgery. The patient remains on antibiotics. Cultures at this hospital have been negative. Labs, x-rays, and medications are reviewed. Prognosis is certainly guarded. Plan dated 01/30/2022. The patient apparently is going to have aortic valve replacement tomorrow. This is according to the nurse. The patient is stable. No hemodynamic or respiratory issues. Labs, x-rays, medications are reviewed. His respiratory status is certainly stable. We will continue to follow after the procedure. Plan dated 01/31/2022. The patient will have aortic valve replacement done today. Patient has been stable since being here in the intensive care unit. The patient remains on antibiotics. Culture data has been negative. Once he leaves the operating room, our goal will be to get him extubated as soon as possible. We'll recommend postextubation incentive spirometry, deep breathing, coughing, clearing of secretions. Time with Patient: Less than 30
[2022-01-31 11:15] LABS: ABG Base Excess -0.1 mmol/L; ABG Glucose Whole Blood 128 mg/dL (75-99); ABG HCO3 25 mmol/L (21-25); ABG Ionized Calcium 4.4 mg/dL (4.5-5.3); ABG Lactic Acid Whole Blood 0.7 mmol/L (0.5-1.6); ABG Oxygen Saturation 99.8 % (94-97); ABG PCO2 41 mmHg (35-45); ABG PH 7.39 (7.35-7.45); ABG PO2 282 mmHg (83-108); ABG Potassium Whole Blood 5.1 mmol/L (3.4-4.5); ABG Sodium Whole Blood 136 mmol/L (135-146); ABG TCO2 26 mmol/L (19-24)
[2022-01-31] MEDS ORDERED: VANCOMYCIN 1,000 MG in SODIUM CHLORIDE 0.9% IRRIGATIO 1,000 ML IRRIGATION ONE (11:30)
[2022-01-31 11:51] LABS: ABG Base Excess -1.4 mmol/L; ABG Glucose Whole Blood 160 mg/dL (75-99); ABG HCO3 24 mmol/L (21-25); ABG Hematocrit 25 % (34.0-46.0); ABG Ionized Calcium 4.2 mg/dL (4.5-5.3); ABG Lactic Acid Whole Blood 1.1 mmol/L (0.5-1.6); ABG PCO2 42 mmHg (35-45); ABG PH 7.37 (7.35-7.45); ABG PO2 392 mmHg (83-108); ABG Potassium Whole Blood 4.8 mmol/L (3.4-4.5); ABG Sodium Whole Blood 137 mmol/L (135-146); ABG TCO2 25 mmol/L (19-24)
--- NOTE | 2022-01-31 11:57 | P.ANPRN ---
Procedure Note - Anesthesia - Invasive Line Right Central Line Time Out Performed: Yes ([id number]) Date of Procedure: 01/31/22 Time of Procedure: 07:32 Location of Patient: PreOp Preparation: Sterile Prep, Sterile Dressing Ultrasound Used: Yes Purpose - Visualization and Identification of Vasculature: Yes Image Stored and Saved: Yes Narrative: Central line placement per sterile protocol utilized. Informed consent obtained. Central line placement per sterile protocol utilized. Right Internal jugular vein cannulated under aseptic precautions. 3cc 1% lidocaine infiltrated initially after cleaning with iodine based prep and draping. Ultrasound used to locate the vein and selginger technique used. 9Fr introduced sheath inserted and after the finding the needle with corporate pilot needle/catheter. After the insertion of PA Catheter the line is dressed with biopatch and tegaderm. Patient tolerated the procedure well. Right Boyce Bon Time Out Performed: Yes Location of Patient: PreOp Preparation: Sterile Prep, Sterile Dressing Narrative: Central line placement per sterile protocol utilized. 8Ff PA catheter threaded through the Right IJ introducer sheath under asepsis with continuous waveform monitoring. Catheter at 52 cms alek. 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 no regional wall motion abnormalities noted Ejection Fraction: Normal Regional Wall Motion Abnormalities: None Left Ventricle Hypertrophy: No R. Ventricle Function: Normal Aortic Valve: mild turbulence seen. there appears to be vegetation on one of the leaflets. A small 0.9 x 0.9 cm collection seen near the right coronary cusp area (anterior commisure of prosthetic valve). Appears to be abscess/ collection around aortic valve which is extentding 1.5 to 2 cms in to the aorta. Peak gradient 28 mmHg and mean gradient is 18 mmHg. Anatomy: Other (Prosthetic valve bileaflet) Aortic Stenosis: Mild Aortic Regurgitation: None Mitral Stenosis: None Mitral Regurgitation: Moderate Tricuspid Stenosis: None Tricuspid Regurgitation: Moderate Pulmonic Stenosis: None Pulmonic Regurgitation: None R. Atrial Dilation: No R. Atrial PFO: No L. Atrial Dilation: No Aortic Dissection: No Aortic Calcification: None Plural Effusion: None - REESE Intraop Post Bypass REESE Intraop Post Bypass Procedure Performed: Aortic valve replacement procedure Left Ventricle: Ejection fraction is normal 55-60%, no new regional wall motion abnormalities noted. Ejection Fraction: Normal Regional Wall Motion Abnormalities: None R. Ventricle Function: Normal Aortic Valve: Prosthetic aortic valve seen, appears to be seated well. No apparent paravalvular regurgitation seen. Mean gradient across the prosthetic valve is 9 mmHg and peak gradient is 18 mmHg. Previously seen collection now not seen behind the aortic valve. Mitral Valve: Unchanged Tricuspid: Unchanged Pulmonic: Unchanged
[2022-01-31 12:26] LABS: ABG Base Excess -2.4 mmol/L; ABG Glucose Whole Blood 170 mg/dL (75-99); ABG HCO3 23 mmol/L (21-25); ABG Ionized Calcium 4.3 mg/dL (4.5-5.3); ABG Lactic Acid Whole Blood 1.2 mmol/L (0.5-1.6); ABG Oxygen Saturation 99.5 % (94-97); ABG PCO2 41 mmHg (35-45); ABG PH 7.35 (7.35-7.45); ABG PO2 287 mmHg (83-108); ABG Potassium Whole Blood 4.2 mmol/L (3.4-4.5); ABG Sodium Whole Blood 138 mmol/L (135-146); ABG TCO2 24 mmol/L (19-24)
[2022-01-31 12:59] LABS: ABG Base Excess -3.5 mmol/L; ABG Glucose Whole Blood 173 mg/dL (75-99); ABG HCO3 23 mmol/L (21-25); ABG Ionized Calcium 4.1 mg/dL (4.5-5.3); ABG Lactic Acid Whole Blood 1.7 mmol/L (0.5-1.6); ABG Oxygen Saturation 99.6 % (94-97); ABG PCO2 45 mmHg (35-45); ABG PH 7.31 (7.35-7.45); ABG PO2 307 mmHg (83-108); ABG Potassium Whole Blood 4.2 mmol/L (3.4-4.5); ABG Sodium Whole Blood 138 mmol/L (135-146); ABG TCO2 24 mmol/L (19-24)
[2022-01-31 13:59] LABS: ABG Base Excess -1.7 mmol/L; ABG Glucose Whole Blood 145 mg/dL (75-99); ABG HCO3 25 mmol/L (21-25); ABG Hematocrit 27 % (34.0-46.0); ABG Ionized Calcium 4.8 mg/dL (4.5-5.3); ABG Lactic Acid Whole Blood 1.3 mmol/L (0.5-1.6); ABG Oxygen Saturation 91.9 % (94-97); ABG PCO2 50 mmHg (35-45); ABG PH 7.31 (7.35-7.45); ABG PO2 67 mmHg (83-108); ABG Potassium Whole Blood 3.9 mmol/L (3.4-4.5); ABG Sodium Whole Blood 140 mmol/L (135-146); ABG TCO2 26 mmol/L (19-24)
[2022-01-31 14:01] LABS: ABG Hematocrit 22 % (34.0-46.0)
[2022-01-31 14:06] LABS: ABG Hematocrit 23 % (34.0-46.0)
[2022-01-31 14:07] LABS: ABG Hematocrit 22 % (34.0-46.0)
[2022-01-31] MEDS ORDERED: ONDANSETRON 4 MG/2 ML VIAL IVP PRN (14:36)
[2022-01-31] MEDS ORDERED: DEXMEDETOMIDINE/0.9% NACL(PMX) 400 MCG in EMPTY BAG 1 BAG IV SCH (14:36)
[2022-01-31] MEDS ORDERED: Magnesium Replacement Protocol 1 EACH MISC MISCELLANE PRN (14:36)
[2022-01-31] MEDS ORDERED: DEXTROSE 50% SYRINGE 50 ML IVP PRN ×2 (14:36)
[2022-01-31] MEDS ORDERED: AMIODARONE 450 MG in DEXTROSE 5% IN WATER 250 ML IV PRN ×2 (14:36)
[2022-01-31] MEDS ORDERED: hydrALAZINE HCL 20 MG/ML 1 ML VIAL IVP PRN (14:36)
[2022-01-31] MEDS ORDERED: MORPHINE SULFATE 2 MG/ML SYRINGE IVP PRN (14:36)
[2022-01-31] MEDS ORDERED: Phosphorus Replacement Protoco 1 EACH MISC MISCELLANE PRN (14:36)
[2022-01-31] MEDS ORDERED: DEXTROSE 5% IN WATER 100 ML with AMIODARONE 150 MG IV PRN (14:36)
[2022-01-31] MEDS ORDERED: IPRATROPIUM-ALBUTEROL 3 ML NEB INHALATION PRN (14:36)
[2022-01-31] MEDS ORDERED: AMIODARONE 360 MG in DEXTROSE 5% IN WATER 200 ML IV PRN ×2 (14:36)
[2022-01-31] MEDS ORDERED: METOCLOPRAMIDE 5 MG/ML 2 ML VIAL IVP PRN (14:36)
[2022-01-31] MEDS ORDERED: CALCIUM GLUCONATE IN NACL 2 GM in SALINE 1 100ML.BAG IVPB PRN (14:36)
[2022-01-31] MEDS ORDERED: ALBUMIN HUMAN 5% 250 ML in EMPTY BAG 1 BAG IVPB PRN (14:36)
[2022-01-31] MEDS ORDERED: Potassium Replacement Protocol 1 EACH MISC MISCELLANE PRN (14:36)
[2022-01-31] MEDS: FINASTERIDE 5 MG TAB PO SCH (14:38)
[2022-01-31] MEDS: DOXAZOSIN 4 MG TAB PO SCH ×2 (14:38→21:19)
[2022-01-31] MEDS: allopurinoL 100 MG TAB PO SCH (14:38)
[2022-01-31] MEDS: MONTELUKAST 10 MG TAB PO SCH (14:39)
[2022-01-31] MEDS: TAMSULOSIN 0.4 MG CAP.ER.24H PO SCH (14:39)
[2022-01-31] MEDS: SODIUM CHLORIDE 0.9% 1,000 ML IV SCH (14:51)
[2022-01-31 15:01] LABS: Glucose,Whole Blood 141 mg/dL (70-110)
[2022-01-31 15:17] LABS: Basophils % (A) 0 %; Eosinophils % (A) 1 %; HCT 25.2 % (39.0-53.0); Hypochromasia Slight; Lymphocytes # (A) 0.5 k/uL (1.0-4.8); Lymphocytes % (A) 10 %; MCH 31.2 pg (25.0-35.0); MCHC 33.4 g/dL (31.0-37.0); MCV 93.4 fL (80.0-100.0); Mean Platelet Volume 8.9; Monocytes # (A) 0.4 k/uL (0-1.0); Monocytes % (A) 7 %; Neutrophils # (A) 4.4 k/uL (1.3-7.7); Neutrophils % (A) 82 %; Platelet Count 138 k/uL (150-450); RBC 2.69 m/uL (4.30-5.90); RDW 14.7 % (11.5-15.5); WBC 5.4 k/uL (3.8-10.6)
[2022-01-31 15:23] LABS: ABG Base Excess -2.4 mmol/L; ABG HCO3 24 mmol/L (21-25); ABG PCO2 47 mmHg (35-45); ABG PH 7.32 (7.35-7.45); ABG PO2 220 mmHg (83-108); ABG TCO2 25 mmol/L (19-24); Allen Test Performed? Yes
[2022-01-31 15:26] LABS: INR 1.3 (<1.2); Partial Thromboplastin Time 37.1 sec (22.0-30.0); Prothrombin Time 13.4 sec (9.0-12.0)
[2022-01-31 15:30] LABS: Albumin 2.5 g/dL (3.5-5.0); Calcium 7.8 mg/dL (8.4-10.2); Magnesium 2.8 mg/dL (1.6-2.3); Total Bilirubin 0.9 mg/dL (0.2-1.3); Total Protein 4.2 g/dL (6.3-8.2)
[2022-01-31] MEDS: IPRATROPIUM-ALBUTEROL 3 ML NEB INHALATION SCH ×2 (15:32→20:42)
[2022-01-31 15:38] LABS: HGB 8.4 gm/dL (13.0-17.5)
[2022-01-31] MEDS ORDERED: CALCIUM GLUCONATE IN NACL 1 GM in SALINE 1 100ML.BAG IVPB ONE (15:41)
[2022-01-31] MEDS: INSULIN REGULAR 100 UNIT in SODIUM CHLORIDE 0.9% 100 ML IV SCH (15:41)
--- NOTE | 2022-01-31 15:57 | XR ---
EXAMINATION TYPE: XR chest 1V portable DATE OF EXAM: 01/31/2022 COMPARISON: 01/25/2022 HISTORY: Postcardiac surgery. TECHNIQUE: Single frontal view of the chest is obtained. FINDINGS: ET tube approximately 2 cm above the apple. NG tube seen extending into the abdomen. Dist al tip is not entirely included. Mediastinal drain chest tube seen with no sizable pneumothorax. Hear t is mildly enlarged there is bilateral infiltrate and small effusion. [place]-Bon catheter seen with t he tip overlying the proximal pulmonary outflow tract IMPRESSION: 1. Bilateral infiltrate and small effusion or likely mild venous congestion. 2. Postoperative change.
[2022-01-31 16:11] LABS: Glucose,Whole Blood 134 mg/dL (70-110)
[2022-01-31 17:15] LABS: Glucose,Whole Blood 134 mg/dL (70-110)
[2022-01-31 18:03] LABS: Glucose,Whole Blood 142 mg/dL (70-110)
[2022-01-31 18:10] LABS: Basophils % (A) 0 %; Eosinophils % (A) 0 %; HCT 26.3 % (39.0-53.0); HGB 8.6 gm/dL (13.0-17.5); Lymphocytes # (A) 0.6 k/uL (1.0-4.8); Lymphocytes % (A) 8 %; MCH 29.9 pg (25.0-35.0); MCHC 32.5 g/dL (31.0-37.0); MCV 91.8 fL (80.0-100.0); Mean Platelet Volume 9.3; Monocytes # (A) 0.3 k/uL (0-1.0); Monocytes % (A) 5 %; Neutrophils # (A) 6.1 k/uL (1.3-7.7); Neutrophils % (A) 85 %; Platelet Count 152 k/uL (150-450); Poikilocytosis Slight; RBC 2.87 m/uL (4.30-5.90); RDW 15.5 % (11.5-15.5); WBC 7.1 k/uL (3.8-10.6)
[2022-01-31] MEDS: CLEVIDIPINE BUTYRATE 25 MG in EMPTY BAG 1 BAG IV SCH ×2 (18:14→22:12)
[2022-01-31] MEDS: HEPARIN SODIUM,PORCINE/PF 5,000 UNIT/0.5 ML SYRINGE SQ SCH (18:21)
[2022-01-31] MEDS: ACETAMINOPHEN IV (For NPO) 1,000 MG in EMPTY BAG 1 BAG IVPB SCH ×2 (18:22→23:46)
[2022-01-31 18:45] LABS: ABG Base Excess -1.1 mmol/L; ABG HCO3 24 mmol/L (21-25); ABG Oxygen Saturation 96.6 % (94-97); ABG PCO2 38 mmHg (35-45); ABG PO2 76 mmHg (83-108); ABG TCO2 25 mmol/L (19-24)
[2022-01-31 19:04] LABS: Glucose,Whole Blood 170 mg/dL (70-110)
[2022-01-31 19:12] LABS: Allen Test Performed? no
[2022-01-31 20:00] LABS: Glucose,Whole Blood 182 mg/dL (70-110)
[2022-01-31 21:00] LABS: Glucose,Whole Blood 167 mg/dL (70-110)
[2022-01-31 21:17] LABS: Basophils % (A) 0 %; Eosinophils % (A) 0 %; HCT 24.8 % (39.0-53.0); Hypochromasia Slight; Lymphocytes # (A) 0.4 k/uL (1.0-4.8); Lymphocytes % (A) 5 %; MCH 29.7 pg (25.0-35.0); MCHC 32.3 g/dL (31.0-37.0); MCV 91.8 fL (80.0-100.0); Mean Platelet Volume 9.6; Monocytes # (A) 0.3 k/uL (0-1.0); Monocytes % (A) 5 %; Neutrophils # (A) 6.4 k/uL (1.3-7.7); Neutrophils % (A) 89 %; Platelet Count 167 k/uL (150-450); Poikilocytosis Slight; RDW 15.6 % (11.5-15.5); WBC 7.2 k/uL (3.8-10.6)
--- NOTE | 2022-01-31 22:03 | OP ---
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 PROCEDURES: 1. Redo sternotomy. 2. Extraction of the previous 23 mm Inspiris pericardial bioprosthesis and debridement of the annulus. 3. Aortic valve replacement using a 21 mm Inspiris pericardial bioprosthesis. INDICATIONS FOR SURGERY: The patient is a 76-year-old gentleman, who had an aortic valve replacement with a 23 mm Inspiris pericardial bioprosthesis in 2018. He was recently admitted with several-weeks history of malaise and fatigue and was found to have positive blood culture for Enterococcus faecalis. The patient was treated with IV antibiotic, however, developed first-degree, then eventually followed by second-degree, then third- degree AV block, requiring insertion of temporary pacemaker. His blood culture eventually became negative, and the REESE showing questionable root abscess. The patient has been taken for redo sternotomy, aortic valve replacement. The elevated STS risk was discussed with him and his family. They understood it and agreed to proceed. Preoperative cardiac catheterization ruled out any significant coronary artery disease. DESCRIPTION OF THE PROCEDURE: The patient in supine position in the preoperative holding area, right internal jugular [place]-Bon catheter and the right radial arterial line were placed. He subsequently was brought to the operating room, where general endotracheal anesthesia was induced uneventfully. Before inducing the anesthesia, his cardiac index was 2.7, his PA pressure was 50/25. Hargrove catheter was inserted. Defibrillation patches were placed on the front and the back. The chest, abdomen, and both lower extremities were prepped and draped using ChloraPrep. Ioban was used to cover the skin. The patient received 2 g of cefazolin intravenously. Transesophageal echocardiogram showed reasonable left ventricular function, moderate mitral valve regurgitation, and lucency around the aortic bioprosthesis with no paravalvular leak. Redo sternotomy was performed using an oscillating saw without problems. An Ankeney retractor was used. The left pleura was widely opened and drained with 19 F Carlos drain. At this point, we proceeded at a tedious dissection of the right ventricle, right atrium, and the aorta. Once this was achieved, systemic heparinization was performed, followed by aortic cannulation with a 21-Malagasy soft flow cannula and venous cannulation with a 2-stage 29/36-Malagasy cannula. Antegrade as well as retrograde cardioplegia catheter were placed. Cardiopulmonary bypass was initiated, and further dissection was completed between the aorta and the pulmonary artery to allow placement of an aortic clamp. Also, further dissection of the right atrium proceeded to dissect and uncover the right superior pulmonary vein in case we needed to place a vent. At this point, the aorta was clamped, and during aortic clamping, myocardial protection was achieved with initial dose of 1 L of antegrade cold blood cardioplegia with adequate arrest at 150 mL, followed by retrograde cold blood cardioplegia of around 400 mL. All subsequent doses were given retrograde at 15 minutes interval. The previous aortotomy was opened, and exploration revealed a vegetation on the right coronary cusp of the prosthesis, mainly on the ventricular side of it. The leaflets of the prosthesis were initially excised to better identify what is going on in terms of infra- or supra-annular extension of an infection. Subsequently, we carefully removed the 16 Cor-Kno that were placed at the initial surgery and that allowed us to extract the valve with no problem. We debrided the annulus and removed all the pledgets. At this point, there was evidence of extension of the infection to the septum, but after debridement, the whole thing was clean and viable . There was no communication between the right ventricle and the left ventricle. The right coronary sinus was intact; however, at the place of the previous left and right commissural strut, there seemed to have an area of rugged sinus wall that was cleaned out, and thorough irrigation with 1 L of saline with vancomycin was performed at this point. Subsequently, we proceeded at placing 16 sutures of Ti-Cron 2-0 in a horizontal mattress fashion with the pledget on the ventricular side. The tissues were solid throughout. The valve was sized to a 21 mm Inspiris at this point, which was brought into the field and all the sutures passed symmetrically through the cuff. It was placed in a supra-annular position, and both coronary ostia were clear. With that, all the needles were cut, and the suture tied using the Cor- Knot device. Further irrigation with vancomycin solution followed. Both coronary ostia again were clear. Subsequently, the aortotomy, as we were rewarming, was closed with a 3-0 SH-1 Prolene in 2 layers, the first layer being in a horizontal mattress fashion and the second layer in an [id number] technique. CoSeal was placed over the aortotomy. De-airing maneuvers were followed. The patient was placed in the Trendelenburg position, was given lidocaine and magnesium and had received a total of around 1 L of formed blood as we were closing the aorta. At this point, the aorta was unclamped. Two monopolar atrial pacing wires were affixed to the respective pressuring of the right atrium, and 2 bipolar ventricular pacing wires were driven via the inferior aspect of the right ventricle. That allowed us to institute AV pacing. After around 15 minutes of reperfusion, we were able to wean off cardiac bypass with a need of low dose of Levophed. Adequate de-airing with REESE. The aortic valve showed no paravalvular leak and good left ventricular function. The mean gradient was 9 mmHg. Test dose and full-dose protamine were given. Decannulation followed. Cardiac index was 3. PA pressure was 40/20. Two 19-Malagasy Carlos drains were left, 1 substernally and 1 in the posterior pericardium. The mediastinal fat was approximated over the aorta, which again was highly situated and relatively short. After ensuring adequate hemostasis and hemodynamic and after correct sponge, instrument, and needle count, the sternum was closed using 5 [id number] pionneer cable after interposing fibular between the sternal edges. Thorough irrigation with cefazolin followed. The rest of the closure proceeded in layers. Skin glue was applied. The patient received 1 unit of packed red blood cells, 2 units of FFP, and 10 units of platelets. He received 450 mL of Cell Saver blood. Transferred to the ICU, AV paced at 80 with a cardiac index of 3, PA pressure of 38/18, and a mean arterial pressure of 63. MMODL / IJN: [id number] / [facility]
[2022-01-31 22:08] LABS: Glucose,Whole Blood 169 mg/dL (70-110)
[2022-01-31 23:14] LABS: Glucose,Whole Blood 167 mg/dL (70-110)
[2022-02-01 00:34] LABS: Glucose,Whole Blood 153 mg/dL (70-110)
[2022-02-01] MEDS: HEPARIN SODIUM,PORCINE/PF 5,000 UNIT/0.5 ML SYRINGE SQ SCH ×3 (00:34→16:15)
[2022-02-01 01:00] LABS: Glucose,Whole Blood 147 mg/dL (70-110)
[2022-02-01 02:07] LABS: Glucose,Whole Blood 136 mg/dL (70-110)
[2022-02-01] MEDS ORDERED: HYDROcodone/APAP 5-325MG 1 EACH TAB PO PRN ×2 (02:28)
[2022-02-01] MEDS: AMPICILLIN 2,000 MG in SODIUM CHLORIDE 0.9% 100 ML IVPB SCH ×6 (02:46→23:07)
[2022-02-01 03:04] LABS: Glucose,Whole Blood 127 mg/dL (70-110)
[2022-02-01 03:58] LABS: Glucose,Whole Blood 119 mg/dL (70-110)
[2022-02-01 04:14] LABS: Basophils % (A) 1 %; Eosinophils % (A) 0 %; HCT 22.1 % (39.0-53.0); HGB 7.3 gm/dL (13.0-17.5); Hypochromasia Slight; Lymphocytes # (A) 0.5 k/uL (1.0-4.8); Lymphocytes % (A) 8 %; MCH 30.7 pg (25.0-35.0); MCHC 33.2 g/dL (31.0-37.0); MCV 92.5 fL (80.0-100.0); Mean Platelet Volume 9.1; Monocytes # (A) 0.4 k/uL (0-1.0); Monocytes % (A) 6 %; Neutrophils # (A) 5.2 k/uL (1.3-7.7); Neutrophils % (A) 83 %; Platelet Count 150 k/uL (150-450); Poikilocytosis Slight; RBC 2.38 m/uL (4.30-5.90); RDW 15.5 % (11.5-15.5); WBC 6.3 k/uL (3.8-10.6)
[2022-02-01 04:21] LABS: Ionized Calcium 5.1 mg/dL (4.5-5.3)
[2022-02-01 04:30] LABS: Albumin 2.4 g/dL (3.5-5.0); Calcium 7.8 mg/dL (8.4-10.2); Magnesium 2.6 mg/dL (1.6-2.3); Potassium 4.7 mmol/L (3.5-5.1); Total Bilirubin 0.3 mg/dL (0.2-1.3); Total Protein 4.2 g/dL (6.3-8.2)
[2022-02-01 05:05] LABS: Glucose,Whole Blood 115 mg/dL (70-110)
[2022-02-01 06:03] LABS: Glucose,Whole Blood 115 mg/dL (70-110)
[2022-02-01 06:58] LABS: Glucose,Whole Blood 110 mg/dL (70-110)
[2022-02-01] MEDS ORDERED: HYDROcodone/APAP 7.5-325MG 1 EACH TAB PO PRN (07:08)
[2022-02-01] MEDS: HYDROcodone/APAP 7.5-325MG 1 EACH TAB PO PRN ×4 (07:14→21:48)
[2022-02-01] MEDS: IPRATROPIUM-ALBUTEROL 3 ML NEB INHALATION SCH ×4 (08:01→19:28)
[2022-02-01] MEDS: SYMBICORT 160-4.5 MCG INHALER INHALATION SCH ×2 (08:01→19:28)
--- NOTE | 2022-02-01 08:04 | P.PN ---
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 History of severe aortic valve stenosis status post aortic valve replacement with a 23 mm Inspiris bioprosthetic aortic valve in November 2017, CAD with mid RCA stenosis 50% and previous PCI in 2018, hypertension, hyperlipidemia, insulin-dependent diabetes mellitus type 2, obesity, obstructive sleep apnea without CPAP use, moderate COPD, asthma, previous tobacco dependence, benign prostatic hypertrophy, UTIs with pseudomonas in 01/2020, gout, bilateral internal carotid stenosis 50-70% POD #1 redo sternotomy, excision of the previous 23 mm Inspiris pericardial bioprosthesis and debridement of the annulus, aortic valve replacement using a 21 mm Inspiris pericardial bioprosthesis Postoperative acute blood loss anemia, expected given hemodilution and cardiopulmonary bypass pump The patient was seen and examined sitting up in a recliner in the intensive care unit in no acute distress. He was successfully extubated yesterday at 18:48. He remains AV paced at 80 bpm, hemodynamically stable on no inotropes or pressors. Cleviprex was recently turned off. He does complain of postoperative pain, denies shortness of breath. He had a relatively uneventful night with the exception of some pain control issues. Right internal jugular [place]/Cordis, right radial arterial line, mediastinal/left pleural chest tubes all remain. No other new concerns. Objective - Vital Signs Vital signs: Vital Signs Temp 35.5 F L 01/31/22 16:00 Pulse 80 02/01/22 07:00 Resp 22 02/01/22 07:00 BP 114/60 02/01/22 07:00 Pulse Ox 97 02/01/22 07:00 FiO2 50 01/31/22 17:00 Intake & Output 01/31/22 02/01/22 02/01/22 18:59 06:59 18:59 Intake Total 5156.815 9622.301 189 Output Total 3415 823 55 Balance -2622.077 7650.301 134 Weight 103.3 kg Intake: IV 529 1438 189 ACETAMINOPHEN IV (For NPO 100 100 ) 1,000 mg In Empty Bag 1 bag @ 400 mls/hr IVPB Q6HR ON LICENSE OF [facility] Rx#:[id number] Ampicillin 2,000 mg In 100 200 100 Sodium Chloride 0.9% 100 ml @ 200 mls/hr IVPB Q4HR ON LICENSE OF [facility] Rx#:[id number] CARDIAC OUTPUT (0.9 40 330 30 Sodium Chloride) Calcium Gluconate in NaCl 100 1 gm In Saline 1 100ml. bag @ 100 mls/hr IVPB ONCE ONE Rx#:[id number] PRESSURE BAG (Sodium 36 108 9 Chloride 0.9) Sodium Chloride 0.9% 1, 150 600 50 000 ml @ 50 mls/hr IV . Q20H [facility] Rx#:[id number] cefTRIAXone 2 gm In 100 Sodium Chloride 0.9% 50 ml @ 100 mls/hr IVPB Q12HR [facility] Rx#:[id number] Intake, IV Titration 45.801 111.301 Amount Clevidipine Butyrate 25 2.033 55.533 mg In Empty Bag 1 bag @ 1 MG/HR 2 mls/hr IV .Q24H [facility] Rx#:[id number] Insulin Regular 100 unit 0.606 55.768 In Sodium Chloride 0.9% 100 ml @ Per Protocol IV .Q0M ON LICENSE OF [facility] Rx#:[id number] Norepinephrine 4 mg In 4.19 Sodium Chloride 0.9% 250 ml @ 0.02 MCG/KG/MIN 7. 856 mls/hr IV .Q24H ON LICENSE OF [facility] Rx#:[id number] propofoL 1,000 mg In 38.972 Empty Bag 1 bag @ Titrate IV .Q0M ON LICENSE OF [facility] Rx#: [id number] Oral 300 Blood Product 986 Ffp 24 Pher Acda Unit 210 [id number] Ffp 24 Pher Acda Unit 205 [id number] Platelet Pheresis Pas 261 Psoralen Unit [id number] Rc As-1 Unit 310 [id number] Output: Chest Tube Drainage 530 250 10 Chest Tube Bilateral 360 170 0 Mediastinal Chest Tube Left Lateral 170 80 10 Chest Urine 885 573 45 Estimated Blood Loss 1999 Other: Voiding Method Indwelling Catheter Indwelling Catheter ABP, PAP, CO, CI - Last Documented Arterial Blood Pressure 167/45 Pulmonary Artery Pressure 29/13 Cardiac Output 5.5 Cardiac Index 2.5 - Exam CONSTITUTIONAL: Appears comfortable, cooperative, no acute distress RESPIRATORY: Lungs sounds diminished bilaterally. Respirations even, nonlabored. Currently on 2 L nasal cannula with oxygen saturation 97%. Able to achieve 750 mL on incentive spirometry. Strong cough. CARDIOVASCULAR: S1, S2 present. Regular rate and rhythm, 100% AV paced on te lemetry at 80 bpm. Sternum stable. Palpable peripheral pulses bilaterally. No edema present. No calf pain or tenderness noted. Heart hugger in place with patient demonstrating appropriate use. Antiembolism stockings, SCDs present. GASTROINTESTINAL: Abdomen soft, nontender, nondistended. Hypoactive bowel sounds present 4 quadrants. Tolerating clear liquids. Denies flatus GENITOURINARY: Hargrove present draining clear, yellow urine. Output overnight 35-50 mL per hour INTEGUMENTARY: Skin is warm and dry with evidence of good perfusion. Anterior chest incision well approximated and covered with dry intact dressing. NEUROLOGIC: Cranial nerves II through XII intact MUSKULOSKELETAL: Able to move all extremities, strength equal bilaterally PSYCHIATRIC: Alert and oriented to person place and time, appropriate affect, intact judgment and insight INVASIVE LINES AND TUBES: Mediastinal/left pleural chest tubes present and connected to wall suction, no air leaks present. Mediastinal tube with 70 mL serosanguineous drainage overnight, 370 mL since surgery. Left pleural chest tu be with 40 mL serosanguineous drainage overnight, 400 mL since surgery. A/V epicardial pacemaker wires present, connected to generator, DDD mode with rate 80 bpm Right internal jugular [place]/Cordis, right radial arterial line present. Last CO/CI 5.5/2.5, PA 24/10, CVP 8. - Allied health notes Allied health notes reviewed: nursing - Labs CBC & Chem 7: 02/01/22 03:55 02/01/22 03:55 Labs: Abnormal Lab Results - Last 24 Hours (Table) 01/30/22 01/31/22 01/31/22 Range/Units 03:52 08:27 10:14 RBC (4.30-5.90) m/uL Hgb (13.0-17.5) gm/dL Hct (39.0-53.0) % RDW (11.5-15.5) % Plt Count (150-450) k/uL Lymphocytes # (1.0-4.8) k/uL PT (9.0-12.0) sec INR (<1.2) APTT (22.0-30.0) sec ABG pH (7.35-7.45) ABG pCO2 (35-45) mmHg ABG pO2 252 H 187 H (83-108) mmHg ABG Total CO2 26 H 27 H (19-24) mmol/L ABG O2 Saturation 99.7 H 99.4 H (94-97) % ABG Hematocrit 30 L 29 L (34.0-46.0) % ABG Potassium (3.4-4.5) mmol/L ABG Ionized Calcium (4.5-5.3) mg/dL ABG Glucose 123 H 122 H (75-99) mg/dL ABG Lactic Acid (0.5-1.6) mmol/L Hemoglobin 9.8 L 9.4 L (13.0-17.5) gm/dL Sodium (137-145) mmol/L Chloride (98-107) mmol/L BUN (9-20) mg/dL Glucose (74-99) mg/dL POC Glucose (mg/dL) (70-110) mg/dL Calcium (8.4-10.2) mg/dL Magnesium (1.6-2.3) mg/dL Alkaline Phosphatase (38-126) U/L Total Protein (6.3-8.2) g/dL Albumin (3.5-5.0) g/dL Arterial Blood Potassium (3.4-4.5) mmol/L Arterial Blood Glucose 123 H 122 H (75-99) mg/dL Crossmatch See Detail 01/31/22 01/31/22 01/31/22 Range/Units 11:18 11:54 12:30 RBC (4.30-5.90) m/uL Hgb (13.0-17.5) gm/dL Hct (39.0-53.0) % RDW (11.5-15.5) % Plt Count (150-450) k/uL Lymphocytes # (1.0-4.8) k/uL PT (9.0-12.0) sec INR (<1.2) APTT (22.0-30.0) sec ABG pH (7.35-7.45) ABG pCO2 (35-45) mmHg ABG pO2 282 H 392 H 287 H (83-108) mmHg ABG Total CO2 26 H 25 H (19-24) mmol/L ABG O2 Saturation 99.8 H 100.0 H 99.5 H (94-97) % ABG Hematocrit 22 L 25 L 23 L (34.0-46.0) % ABG Potassium 5.1 H 4.8 H (3.4-4.5) mmol/L ABG Ionized Calcium 4.4 L 4.2 L 4.3 L (4.5-5.3) mg/dL ABG Glucose 128 H 160 H 170 H (75-99) mg/dL ABG Lactic Acid (0.5-1.6) mmol/L Hemoglobin 7.1 L 8.1 L 7.4 L (13.0-17.5) gm/dL Sodium (137-145) mmol/L Chloride (98-107) mmol/L BUN (9-20) mg/dL Glucose (74-99) mg/dL POC Glucose (mg/dL) (70-110) mg/dL Calcium (8.4-10.2) mg/dL Magnesium (1.6-2.3) mg/dL Alkaline Phosphatase (38-126) U/L Total Protein (6.3-8.2) g/dL Albumin (3.5-5.0) g/dL Arterial Blood Potassium 5.1 H 4.8 H (3.4-4.5) mmol/L Arterial Blood Glucose 128 H 160 H 170 H (75-99) mg/dL Crossmatch 01/31/22 01/31/22 01/31/22 Range/Units 13:03 14:02 14:59 RBC (4.30-5.90) m/uL Hgb (13.0-17.5) gm/dL Hct (39.0-53.0) % RDW (11.5-15.5) % Plt Count (150-450) k/uL Lymphocytes # (1.0-4.8) k/uL PT (9.0-12.0) sec INR (<1.2) APTT (22.0-30.0) sec ABG pH 7.31 L 7.31 L (7.35-7.45) ABG pCO2 50 H (35-45) mmHg ABG pO2 307 H 67 L (83-108) mmHg ABG Total CO2 26 H (19-24) mmol/L ABG O2 Saturation 99.6 H 91.9 L (94-97) % ABG Hematocrit 22 L 27 L (34.0-46.0) % ABG Potassium (3.4-4.5) mmol/L ABG Ionized Calcium 4.1 L (4.5-5.3) mg/dL ABG Glucose 173 H 145 H (75-99) mg/dL ABG Lactic Acid 1.7 H (0.5-1.6) mmol/L Hemoglobin 7.2 L 8.8 L (13.0-17.5) gm/dL Sodium (137-145) mmol/L Chloride (98-107) mmol/L BUN (9-20) mg/dL Glucose (74-99) mg/dL POC Glucose (mg/dL) 141 H (70-110) mg/dL Calcium (8.4-10.2) mg/dL Magnesium (1.6-2.3) mg/dL Alkaline Phosphatase (38-126) U/L Total Protein (6.3-8.2) g/dL Albumin (3.5-5.0) g/dL Arterial Blood Potassium (3.4-4.5) mmol/L Arterial Blood Glucose 173 H 145 H (75-99) mg/dL Crossmatch 01/31/22 01/31/22 01/31/22 Range/Units 15:13 15:13 15:13 RBC 2.69 L (4.30-5.90) m/uL Hgb 8.4 L D (13.0-17.5) gm/dL Hct 25.2 L (39.0-53.0) % RDW (11.5-15.5) % Plt Count 138 L (150-450) k/uL Lymphocytes # 0.5 L (1.0-4.8) k/uL PT 13.4 H (9.0-12.0) sec INR 1.3 H (<1.2) APTT 37.1 H (22.0-30.0) sec ABG pH (7.35-7.45) ABG pCO2 (35-45) mmHg ABG pO2 (83-108) mmHg ABG Total CO2 (19-24) mmol/L ABG O2 Saturation (94-97) % ABG Hematocrit (34.0-46.0) % ABG Potassium (3.4-4.5) mmol/L ABG Ionized Calcium (4.5-5.3) mg/dL ABG Glucose (75-99) mg/dL ABG Lactic Acid (0.5-1.6) mmol/L Hemoglobin (13.0-17.5) gm/dL Sodium (137-145) mmol/L Chloride 108 H (98-107) mmol/L BUN 23 H (9-20) mg/dL Glucose 132 H (74-99) mg/dL POC Glucose (mg/dL) (70-110) mg/dL Calcium 7.8 L (8.4-10.2) mg/dL Magnesium 2.8 H (1.6-2.3) mg/dL Alkaline Phosphatase 27 L (38-126) U/L Total Protein 4.2 L (6.3-8.2) g/dL Albumin 2.5 L (3.5-5.0) g/dL Arterial Blood Potassium (3.4-4.5) mmol/L Arterial Blood Glucose (75-99) mg/dL Crossmatch 01/31/22 01/31/22 01/31/22 Range/Units 15:16 16:09 17:14 RBC (4.30-5.90) m/uL Hgb (13.0-17.5) gm/dL Hct (39.0-53.0) % RDW (11.5-15.5) % Plt Count (150-450) k/uL Lymphocytes # (1.0-4.8) k/uL PT (9.0-12.0) sec INR (<1.2) APTT (22.0-30.0) sec ABG pH 7.32 L (7.35-7.45) ABG pCO2 47 H (35-45) mmHg ABG pO2 220 H (83-108) mmHg ABG Total CO2 25 H (19-24) mmol/L ABG O2 Saturation 100.0 H (94-97) % ABG Hematocrit (34.0-46.0) % ABG Potassium (3.4-4.5) mmol/L ABG Ionized Calcium (4.5-5.3) mg/dL ABG Glucose (75-99) mg/dL ABG Lactic Acid (0.5-1.6) mmol/L Hemoglobin (13.0-17.5) gm/dL Sodium (137-145) mmol/L Chloride (98-107) mmol/L BUN (9-20) mg/dL Glucose (74-99) mg/dL POC Glucose (mg/dL) 134 H 134 H (70-110) mg/dL Calcium (8.4-10.2) mg/dL Magnesium (1.6-2.3) mg/dL Alkaline Phosphatase (38-126) U/L Total Protein (6.3-8.2) g/dL Albumin (3.5-5.0) g/dL Arterial Blood Potassium (3.4-4.5) mmol/L Arterial Blood Glucose (75-99) mg/dL Crossmatch 01/31/22 01/31/22 01/31/22 Range/Units 18:02 18:06 18:42 RBC 2.87 L (4.30-5.90) m/uL Hgb 8.6 L (13.0-17.5) gm/dL Hct 26.3 L (39.0-53.0) % RDW (11.5-15.5) % Plt Count (150-450) k/uL Lymphocytes # 0.6 L (1.0-4.8) k/uL PT (9.0-12.0) sec INR (<1.2) APTT (22.0-30.0) sec ABG pH (7.35-7.45) ABG pCO2 (35-45) mmHg ABG pO2 76 L (83-108) mmHg ABG Total CO2 25 H (19-24) mmol/L ABG O2 Saturation (94-97) % ABG Hematocrit (34.0-46.0) % ABG Potassium (3.4-4.5) mmol/L ABG Ionized Calcium (4.5-5.3) mg/dL ABG Glucose (75-99) mg/dL ABG Lactic Acid (0.5-1.6) mmol/L Hemoglobin (13.0-17.5) gm/dL Sodium (137-145) mmol/L Chloride (98-107) mmol/L BUN (9-20) mg/dL Glucose (74-99) mg/dL POC Glucose (mg/dL) 142 H (70-110) mg/dL Calcium (8.4-10.2) mg/dL Magnesium (1.6-2.3) mg/dL Alkaline Phosphatase (38-126) U/L Total Protein (6.3-8.2) g/dL Albumin (3.5-5.0) g/dL Arterial Blood Potassium (3.4-4.5) mmol/L Arterial Blood Glucose (75-99) mg/dL Crossmatch 01/31/22 01/31/22 01/31/22 Range/Units 19:03 19:58 20:58 RBC (4.30-5.90) m/uL Hgb (13.0-17.5) gm/dL Hct (39.0-53.0) % RDW (11.5-15.5) % Plt Count (150-450) k/uL Lymphocytes # (1.0-4.8) k/uL PT (9.0-12.0) sec INR (<1.2) APTT (22.0-30.0) sec ABG pH (7.35-7.45) ABG pCO2 (35-45) mmHg ABG pO2 (83-108) mmHg ABG Total CO2 (19-24) mmol/L ABG O2 Saturation (94-97) % ABG Hematocrit (34.0-46.0) % ABG Potassium (3.4-4.5) mmol/L ABG Ionized Calcium (4.5-5.3) mg/dL ABG Glucose (75-99) mg/dL ABG Lactic Acid (0.5-1.6) mmol/L Hemoglobin (13.0-17.5) gm/dL Sodium (137-145) mmol/L Chloride (98-107) mmol/L BUN (9-20) mg/dL Glucose (74-99) mg/dL POC Glucose (mg/dL) 170 H 182 H 167 H (70-110) mg/dL Calcium (8.4-10.2) mg/dL Magnesium (1.6-2.3) mg/dL Alkaline Phosphatase (38-126) U/L Total Protein (6.3-8.2) g/dL Albumin (3.5-5.0) g/dL Arterial Blood Potassium (3.4-4.5) mmol/L Arterial Blood Glucose (75-99) mg/dL Crossmatch 01/31/22 01/31/2201/31/22 Range/Units 21:00 21:59 23:12 RBC 2.70 L (4.30-5.90) m/uL Hgb 8.0 L (13.0-17.5) gm/dL Hct 24.8 L (39.0-53.0) % RDW 15.6 H (11.5-15.5) % Plt Count (150-450) k/uL Lymphocytes # 0.4 L (1.0-4.8) k/uL PT (9.0-12.0) sec INR (<1.2) APTT (22.0-30.0) sec ABG pH (7.35-7.45) ABG pCO2 (35-45) mmHg ABG pO2 (83-108) mmHg ABG Total CO2 (19-24) mmol/L ABG O2 Saturation (94-97) % ABG Hematocrit (34.0-46.0) % ABG Potassium (3.4-4.5) mmol/L ABG Ionized Calcium (4.5-5.3) mg/dL ABG Glucose (75-99) mg/dL ABG Lactic Acid (0.5-1.6) mmol/L Hemoglobin (13.0-17.5) gm/dL Sodium (137-145) mmol/L Chloride (98-107) mmol/L BUN (9-20) mg/dL Glucose (74-99) mg/dL POC Glucose (mg/dL) 169 H 167 H (70-110) mg/dL Calcium (8.4-10.2) mg/dL Magnesium (1.6-2.3) mg/dL Alkaline Phosphatase (38-126) U/L Total Protein (6.3-8.2) g/dL Albumin (3.5-5.0) g/dL Arterial Blood Potassium (3.4-4.5) mmol/L Arterial Blood Glucose (75-99) mg/dL Crossmatch 02/01/22 02/01/22 02/01/22 Range/Units 00:23 00:58 02:05 RBC (4.30-5.90) m/uL Hgb (13.0-17.5) gm/dL Hct (39.0-53.0) % RDW (11.5-15.5) % Plt Count (150-450) k/uL Lymphocytes # (1.0-4.8) k/uL PT (9.0-12.0) sec INR (<1.2) APTT (22.0-30.0) sec ABG pH (7.35-7.45) ABG pCO2 (35-45) mmHg ABG pO2 (83-108) mmHg ABG Total CO2 (19-24) mmol/L ABG O2 Saturation (94-97) % ABG Hematocrit (34.0-46.0) % ABG Potassium (3.4-4.5) mmol/L ABG Ionized Calcium (4.5-5.3) mg/dL ABG Glucose (75-99) mg/dL ABG Lactic Acid (0.5-1.6) mmol/L Hemoglobin (13.0-17.5) gm/dL Sodium (137-145) mmol/L Chloride (98-107) mmol/L BUN (9-20) mg/dL Glucose (74-99) mg/dL POC Glucose (mg/dL) 153 H 147 H 136 H (70-110) mg/dL Calcium (8.4-10.2) mg/dL Magnesium (1.6-2.3) mg/dL Alkaline Phosphatase (38-126) U/L Total Protein (6.3-8.2) g/dL Albumin (3.5-5.0) g/dL Arterial Blood Potassium (3.4-4.5) mmol/L Arterial Blood Glucose (75-99) mg/dL Crossmatch 02/01/22 02/01/22 02/01/22 Range/Units 03:01 03:55 03:55 RBC 2.38 L (4.30-5.90) m/uL Hgb 7.3 L (13.0-17.5) gm/dL Hct 22.1 L (39.0-53.0) % RDW (11.5-15.5) % Plt Count (150-450) k/uL Lymphocytes # 0.5 L (1.0-4.8) k/uL PT (9.0-12.0) sec INR (<1.2) APTT (22.0-30.0) sec ABG pH (7.35-7.45) ABG pCO2 (35-45) mmHg ABG pO2 (83-108) mmHg ABG Total CO2 (19-24) mmol/L ABG O2 Saturation (94-97) % ABG Hematocrit (34.0-46.0) % ABG Potassium (3.4-4.5) mmol/L ABG Ionized Calcium (4.5-5.3) mg/dL ABG Glucose (75-99) mg/dL ABG Lactic Acid (0.5-1.6) mmol/L Hemoglobin (13.0-17.5) gm/dL Sodium 136 L (137-145) mmol/L Chloride 108 H (98-107) mmol/L BUN 28 H (9-20) mg/dL Glucose 110 H (74-99) mg/dL POC Glucose (mg/dL) 127 H (70-110) mg/dL Calcium 7.8 L (8.4-10.2) mg/dL Magnesium 2.6 H (1.6-2.3) mg/dL Alkaline Phosphatase 34 L (38-126) U/L Total Protein 4.2 L (6.3-8.2) g/dL Albumin 2.4 L (3.5-5.0) g/dL Arterial Blood Potassium (3.4-4.5) mmol/L Arterial Blood Glucose (75-99) mg/dL Crossmatch 02/01/22 02/01/22 02/01/22 Range/Units 03:55 05:03 06:02 RBC (4.30-5.90) m/uL Hgb (13.0-17.5) gm/dL Hct (39.0-53.0) % RDW (11.5-15.5) % Plt Count (150-450) k/uL Lymphocytes # (1.0-4.8) k/uL PT (9.0-12.0) sec INR (<1.2) APTT (22.0-30.0) sec ABG pH (7.35-7.45) ABG pCO2 (35-45) mmHg ABG pO2 (83-108) mmHg ABG Total CO2 (19-24) mmol/L ABG O2 Saturation (94-97) % ABG Hematocrit (34.0-46.0) % ABG Potassium (3.4-4.5) mmol/L ABG Ionized Calcium (4.5-5.3) mg/dL ABG Glucose (75-99) mg/dL ABG Lactic Acid (0.5-1.6) mmol/L Hemoglobin (13.0-17.5) gm/dL Sodium (137-145) mmol/L Chloride (98-107) mmol/L BUN (9-20) mg/dL Glucose (74-99) mg/dL POC Glucose (mg/dL) 119 H 115 H 115 H (70-110) mg/dL Calcium (8.4-10.2) mg/dL Magnesium (1.6-2.3) mg/dL Alkaline Phosphatase (38-126) U/L Total Protein (6.3-8.2) g/dL Albumin (3.5-5.0) g/dL Arterial Blood Potassium (3.4-4.5) mmol/L Arterial Blood Glucose (75-99) mg/dL Crossmatch Microbiology - Last 24 Hours (Table) 01/31/22 14:03 Tissue Culture - Preliminary Other - Other 01/31/22 14:03 Anaerobic Culture - Preliminary Other - Other 01/31/22 14:04 Anaerobic Culture - Preliminary Other - Other 01/31/22 14:04 Tissue Culture - Preliminary Other - Other - Imaging and Cardiology Chest x-ray: image reviewed Assessment and Plan Assessment: 1. 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 Bacteremia with enterococcus faecalis, blood cultures currently negative to date 3. Moderate mitral valve regurgitation 4. Altered mental status present on admission, resolved 5. History of severe aortic valve stenosis status post aortic valve replacement with a 23 mm Inspiris bioprosthetic aortic valve in November 2017 6. CAD with mid RCA stenosis 50% and previous PCI in 2018 7. Hypertension 8. Hyperlipidemia, treated, cholesterol 86, LDL 39 9. Insulin-dependent diabetes mellitus type 2, preoperative hemoglobin A1c 7.8% 10. Obesity 11. Obstructive sleep apnea without CPAP use 12. Moderate COPD, FEV1 59% of predicted 13. Asthma 14. Previous tobacco dependence 15. Benign prostatic hypertrophy, currently on Flomax, Cardura, Proscar 16. UTIs with pseudomonas in 01/2020 17. Gout 18. Bilateral internal carotid stenosis 50-70% 19. Postoperative acute blood loss anemia, expected given hemodilution and cardiopulmonary bypass pump Plan: 1. Continue to maximize medical therapy with aspirin, statin, Plavix. Beta erasto remains on hold and is contraindicated at this time due to heart block. Will add hydralazine for afterload reduction 2. Wean O2 as tolerated. Encourage use of his incentive spirometry 10 times every hour while awake. Bronchodilators per pulmonology 3. Increase activity, ambulate as tolerated. PT/OT/cardiac rehab consulted 4. Will monitor daily labs and x-rays. Electrolyte replacement per protocol 5. Continue ampicillin and Rocephin per infectious disease recommendations. 6. GI and DVT prophylaxis 7. Pain control current medication regimen. Will increase [place] dose for better pain control 8. Insulin management per primary care service 9. Patient will likely need permanent pacemaker placement. Would prefer 2-3 days of continued IV antibiotics prior to insertion. Dr. Scruggs updated. In the meantime, continue AV pacing with epicardial leads 10. Discontinue [place]. Connect Cordis to continuous CVP monitoring 11. Continue mediastinal/left pleural chest tube for 24 hours 12. Continue Hargrove catheter for another 24 hours for strict accurate intake and output. Daily weights 13. More recommendations as patient progresses
--- NOTE | 2022-02-01 08:51 | P.PN ---
Subjective Progress Note Date: 01/31/22 HISTORY OF PRESENT ILLNESS This is a 76-year-old male patient with past medical history of hypertension with hypertensive cardiovascular disease, hyperlipidemia, diabetes mellitus type 2 with diabetic polyneuropathy, enlarged prostate, history of aortic valve disease status post aortic valve replacement with a 23 mm valve on 12/04/2017, prior to that, left heart catheterization revealed 30-40% stenosis in the RCA in 2018, history of melanoma status post resection 12/07/2021, from the back. Patient initially presented to [facility] with mental status changes with significant encephalopathy. CAT scan of the brain did not show any acute infarct or bleed. Patient did have leukocytosis and low-grade fever. He is status post IV fluid resuscitation, he was started on IV antibiotics initially in the form of Levaquin and subsequently changed to ampicillin and cef triaxone by Dr. Cunningham. EKG did not show any evidence of acute changes. CAT scan of the chest abdomen and pelvis showed some perinephric stranding without evidence of hydronephrosis, there was evidence of diverticulosis without diverticulitis. CAT scan of the chest showed evidence of cardiomegaly with bilateral pleural effusion and possible pulmonary fibrosis. CAT scan of the cervical spine did show evidence of spondylosis of cervical spine without evidence of fracture. CAT scan of the brain showed brain atrophy without evidence of acute infarct or bleed, small vessel disease present. Patient was initially admitted to [facility] where he was followed by infectious disease as well as cardiology. He underwent a REESE on 01/22 revealed left ventricular systolic function normal at 55-60%, small aortic valve vegetation was present measuring 0.53 cm. Patient has bioprosthetic aortic valve. Moderate MR, [id number] tricuspid regurgitation, no pericardial effusion. Patients blood cultures were positive for enterococcus species. Patient was in a sinus rhythm with a first-degree AV block but subsequently developed a high-grade AV block on 01/24 with progressive worsening of the AV block and PVCs. Patient is complaining of left lower rib cage chest discomfort. No palpitations or dizziness. Patient was then transferred to [facility] to be evaluated by cardiothoracic surgery team. Patient is seen today in the intensive care unit, consults added for cardiology, cell attendant, cardiothoracic surgery. 01/25: Patient is seen today in the ICU. He states he slept well last night. He states he is better able to take a deep breath with less pain on his left chest wall. He is able to reach 1500 MLS on incentive spirometry. He is complaining of tingling in bilateral feet. Has not had a bowel movement but feels that he needs to today. Senokot scheduled added. Blood sugar was low this morning and glimepiride decreased to 2 mg twice daily and Levemir decreased to 20 units. Patient has an external catheter in place draining clear emily urine. He has been evaluated by cardiology, cardiothoracic surgery and cell attendant. Cardiology is planning for temporary pacemaker. C plan to continue close monitoring in the intensive care unit, monitor results of the blood cultures.hest x-ray reveals postoperative changes similar to prior exam. There may be some interstitial changes. Carotid ultrasound reveals slight elevated velocity in the internal carotid arteries bilaterally suggestive of 50-70 percent stenosis. There is antegrade flow in the vertebral arteries. Panorex CAT scan completed without any significant abnormalities. Arterial ultrasound bilateral lower extremities revealed normal ankle brachial indices. 01/26: Patient is lying down in bed in no acute distress, yesterday underwent temporary TVP for 2nd degree AV block, plan is to repeat REESE for further evaluation of possible abscess formation and the degree of involvement of the aortic ring of the bioprosthetic aortic valve, we will continue with IV Rocephin and Ampicillin for now, repeated blood cltures from 01/24/2022 still no growth so far, also nasal screen negative for MSSA.MRSA, bedside spirometer showed FEV2 38 % of predicted, we will continue with aggressive pulmonary toiletting, patient has been seen by multiple services , prognosis continues to be guarded, spoke with his daughter and his over the phone , they are contemplating if he should go to a [facility] or [facility], our cardiothoracic team is involved and hopefully will see patient today and alleviate his concerns and give their recommendations on surgical intervention. 01/28: The patient remains in the intensive care unit patient has been afebrile, heart rate 70s, blood pressure 157/77, pulse ox 94% on room air. security monitor is a paced rhythm. Cardiac catheterization, performed on 01/27, reveals moderate disease in the mid RCA, no evidence of high-grade stenosis in the LAD or left circumflex and placement of a temporary pacemaker. Patient will be seen by a dentist this afternoon. He is utilizing his incentive spirometry regularly and reaching 2000 2500. He is eating all of his food. He states he had a bowel movement yesterday and today. He is urinating without any difficulty. Patient is expecting to be seen by Dr. Lopez to discuss surgical options. WBC 6.4, hemoglobin 0.5, platelet count 235. BMP within normal limits. Calcium 8.2. Capillary blood glucose running between 126 and 196. Blood culture obtained on 01/24 showing no growth after 72 hours 1 specimen. 01/29: Patient was seen by the dentist yesterday and was cleared by surgery. He complains of dry mouth when he woke up this morning but otherwise no new complaints. security monitor is paced rhythm. Pulse ox 95% on room air. Blood pressure elevated 182/87. Hydrochlorothiazide 25 mg added to his blood pressure regime. Repeat blood work reveals WBC 5.3, hemoglobin 11.7, platelet count 230. Electrolytes and renal function normal. Capillary blood glucose running between 97-194. Patient is waiting to hear from the cardiothoracic team regarding plan for surgery. 01/30: Patient is scheduled for redo aortic valve replacement, possible aortic root replacement on 01/31. a consult was added for urology yesterday for recurrent UTIs. Patient denies dysuria, he is able to void spontaneously and is maintained on Flomax and Proscar. Dr. Farooq believes the culture from 2019 is contamination rather than actual UTI with history of phimosis contributing to positive culture. Plan to follow up with Dr. Emmanuel as normally scheduled. patient is continued on antibiotics the form of ampicillin and Rocephin. patient has remained afebrile. Pulse ox is 97% on room air. CM paced rhythm. Blood pressure 140/67 and has been improved overnight with addition of hydrochlorothiazide yesterday. Repeat blood work reveals WBC 6.1, hemoglobin 11.7, platelet count 237. Electrolytes and renal function are normal with creatinine of 1.08. White blood glucose running between 109 and 177. 01/31: Patient remains afebrile overnight with heart rate 49-54. Blood pressure 139/69 and pulse ox 94% on room air. Repeat blood work reveals WBC 5.0, hemoglobin 11.1, platelet count 246. Sodium 136, potassium 4.4, chloride 103, CO2 24, BUN 29 creatinine 1.05. Blood sugar 122. Capillary blood glucose running between 106 and 166. Patient is scheduled for redo aortic valve replacement today. REVIEW OF SYSTEMS Constitutional: No fever, no chills, no night sweats. No weight change. No weakness, denies fatigue no lethargy. No daytime sleepiness. EENT: No headache. No blurred vision or double vision, no loss of vision. No loss of Hearing, no ringing in the ears, no dizziness. No nasal drainage or congestion. No epistaxis. No sore throat. Lungs: No shortness of breath, cough, no sputum production. No wheezing. Cardiovascular: Reports left sided rib chest pain-improved, no lower extremity edema. No palpitations. No paroxysmal nocturnal dyspnea. No orthopnea. No lightheadedness or dizziness. No syncopal episodes. Abdominal: No abdominal pain. No nausea, vomiting. No diarrhea. No constipation. No bloody or tarry stools. No loss of appetite. Genitourinary: No dysuria, increased frequency, urgency. No urinary retention. Musculoskeletal: No myalgias. No muscle weakness, no gait dysfunction, no frequent falls. No back pain. No neck pain. Integumentary: No wounds, no lesions. No rash or pruritus. No unusual bruising. Neurologic: No aphasia. No facial droop. No change in mentation. No head injury. No headache. No paralysis. No paresthesia. Psychiatric: No depression. No anxiety. No mood swings. Endocrine: No abnormal blood sugars. No weight change. No excessive sweating or thirst. No cold intolerance. PHYSICAL EXAMINATION Gen: This is a 76-year-old male. He is resting in ICU bed and appears to be in no acute distress. HEENT: Head is atraumatic, normocephalic. Pupils equal, round. Sclerae is anicteric. NECK: Supple. No JVD. No lymphadenopathy. No thyromegaly. LUNGS: Clear to auscultation. No wheezes or rhonchi. No intercostal retractions. HEART: First heart sound is depressed, second heart sound is normal, aortic valve click, systolic ejection murmur 2/6 at the left sternal border.. ABDOMEN: Soft. Bowel sounds are present. No masses. No tenderness. EXTREMITIES: No pedal edema. No calf tenderness. Dorsalis pedis +2 bilaterally. NEUROLOGICAL: Patient is awake, alert and oriented x3. Cranial nerves 2 through 12 are grossly intact. Muscle power 4 out of 5 upper and lower extremities bilaterally. ASSESSMENT AND PLAN 1. 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 Patients mental status is back to baseline. Patient admitted into the intensive care unit, consult in place with cell attendant, infectious disease, cardiothoracic surgery. Continue patient on ampicillin 2 g IV piggyback every 4 hours, ceftriaxone 2 g IV piggyback every 12 hours. Monitor for blood culture results which repeats have been negative thus far. Plan for redo aortic valve replacement on . 2. High-grade AV block. Patient was transferred to [facility], S/P TVP was placed. 3. Mild elevation in troponin secondary to sepsis, stable. S/p repeat LHC. 4. Hypertension with hypertensive cardiovascular disease. Continue patient on losartan 100 mg daily, hydralazine 100 mg 3 times daily, amlodipine 5 mg twice daily, Cardura 8 mg twice daily, Lasix 40 mg daily, add hydrochlorothiazide 25 mg daily. 5. Hyperlipidemia. Continue atorvastatin 40 mg at bedtime. 6. Diabetes mellitus type 2, uncontrolled with hypoglycemia. Continue patient on Levemir 20 units at bedtime, NovoLog scale before meals and at bedtime, glimepiride decreased to 2 mg twice daily, Farxiga 10 mg daily. 7. Benign prostatic hypertrophy. Continue Flomax 0.4 mg daily, continue finasteride 5 mg daily 8. 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 Continue patient on Symbicort 160- 4.5 g 2 puffs twice daily, albuterol nebulizer every 4 hours as needed for shortness of breath, reviewed bedside spirometery with FEV1 38 % of predicted. 9. ALLERGIC rhinitis. Continue Singulair 10 mg at bedtime. 10. Chronic gout. Continue allopurinol 100 mg daily. 11. DVT prophylaxis. Heparin 5000 units subcu every 12 hours. 12. GI prophylaxis. Protonix 40 mg daily. CODE STATUS: Full code. Impression and plan of care have been directed as dictated by the signing physician. Maria G Paez nurse practitioner acting as scribe for signing physician. Objective - Vital Signs Vital signs: Vital Signs Temp 98.5 F 01/31/22 04:00 Pulse 54 L 01/31/22 06:00 Resp 15 01/31/22 06:00 BP 153/72 01/31/22 07:00 Pulse Ox 94 L 01/31/22 06:00 FiO2 21 01/30/22 07:49 Intake & Output 01/30/22 01/31/22 01/31/22 18:59 06:59 18:59 Intake Total 920 790 Output Total 2875 2850 Balance -1954 -2059 Weight 103.1 kg Intake: IV 560 790 0.9NS 360 390 Ampicillin 2,000 mg In 100 300 Sodium Chloride 0.9% 100 ml @ 200 mls/hr IVPB Q4HR [facility] Rx#:[id number] cefTRIAXone 2 gm In 100 100 Sodium Chloride 0.9% 50 ml @ 100 mls/hr IVPB Q12HR [facility] Rx#:[id number] Oral 360 Output: Urine 2875 2850 Other: Voiding Method External Catheter External Catheter # Bowel Movements 1 - Labs CBC & Chem 7: 02/01/22 03:55 02/01/22 03:55 Labs: Abnormal Lab Results - Last 24 Hours (Table) 01/30/22 01/30/22 01/31/22 Range/Units 16:43 21:23 06:07 RBC 3.58 L (4.30-5.90) m/uL Hgb 11.1 L (13.0-17.5) gm/dL Hct 33.5 L (39.0-53.0) % Sodium (137-145) mmol/L BUN (9-20) mg/dL Glucose (74-99) mg/dL POC Glucose (mg/dL) 163 H 166 H (70-110) mg/dL 01/31/22 Range/Units 06:07 RBC (4.30-5.90) m/uL Hgb (13.0-17.5) gm/dL Hct (39.0-53.0) % Sodium 136 L (137-145) mmol/L BUN 29 H (9-20) mg/dL Glucose 122 H (74-99) mg/dL POC Glucose (mg/dL) (70-110) mg/dL Microbiology - Last 24 Hours (Table) 01/24/22 15:19 Blood Culture - Final Blood No Growth after 144 hours 01/24/22 15:19 Blood Culture - Final Blood No Growth after 144 hours
[2022-02-01] MEDS: ASPIRIN 325 MG TAB PO SCH (08:55)
[2022-02-01] MEDS: DOXAZOSIN 4 MG TAB PO SCH ×2 (08:57→20:14)
[2022-02-01] MEDS: FINASTERIDE 5 MG TAB PO SCH (08:57)
[2022-02-01] MEDS: allopurinoL 100 MG TAB PO SCH (08:58)
[2022-02-01] MEDS: TAMSULOSIN 0.4 MG CAP.ER.24H PO SCH (08:58)
[2022-02-01] MEDS: MONTELUKAST 10 MG TAB PO SCH (08:58)
[2022-02-01] MEDS: ATORVASTATIN 40 MG TAB PO SCH (08:58)
[2022-02-01] MEDS: hydrALAZINE HCL 25 MG TAB PO SCH ×2 (08:58→20:14)
[2022-02-01] MEDS ORDERED: bisacodyL 10 MG SUPP RECTAL PRN (09:00)
[2022-02-01] MEDS ORDERED: PANTOPRAZOLE 40 MG/10 ML VIAL IVP SCH (09:00)
[2022-02-01] MEDS ORDERED: CLOPIDOGREL 75 MG TAB PO SCH (09:00)
[2022-02-01] MEDS ORDERED: MAGNESIUM HYDROXIDE 2,400 MG/10 ML CUP PO PRN (09:00)
[2022-02-01 09:07] LABS: Glucose,Whole Blood 141 mg/dL (70-110)
--- NOTE | 2022-02-01 09:07 | XR ---
EXAMINATION TYPE: XR chest 1V portable DATE OF EXAM: 02/01/2022 COMPARISON: 01/31/2022 HISTORY: Postop TECHNIQUE: Single frontal view of the chest is obtained. FINDINGS: A [place] catheter seen. ET and NG tube been removed. Mediastinal drain noted. No sizabl e pneumothorax. Bilateral and right pleural effusion. IMPRESSION: 1. Postoperative changes with bilateral infiltrate and small effusion.
[2022-02-01 10:06] LABS: Glucose,Whole Blood 160 mg/dL (70-110)
[2022-02-01 11:13] LABS: Glucose,Whole Blood 158 mg/dL (70-110)
--- NOTE | 2022-02-01 11:30 | P.PN ---
Subjective Progress Note Date: 02/01/22 Principal diagnosis: Endocarditis. Patient was reevaluated today on 01/25/22 patient remains in the ICU, remains on broad-spectrum antibiotics, he is hemodynamically stable, not in any form of distress, not requiring any pressors or any inotropes. Remains on ampicillin and Rocephin as recommended by infectious disease for his Enterococcus faecalis endocarditis. His labs today are basically unremarkable. Patient is being considered for surgical intervention by cardiothoracic surgery. Labs today were basically unremarkable including relatively normal CBC and normal basic metabolic profile Reevaluated today on 01/26/22, patient remains in the ICU, has been seen by many consultants, patient is to be seen by thoracic surgery today, apparently cardiology declined repeating is REESE, and felt very confident that the patient has endocarditis, and no need to repeat his REESE. Patient is being considered for transfer to another tertiary care center but he is yet to be seen by cardiothoracic surgery. In the meantime the patient seems to be hemodynamically stable, he is on room air, not in any distress. Reevaluated today on 01/27/22, patient is in the ICU, scheduled to undergo cardiac catheterization today. Patient is being worked up and possibly to undergo redo aortic valve replacement because of the endocarditis and he had evidence of new AV block. Today the patient will likely have placement of a temporary pacemaker since his previous temporary pacemaker is nonfunctional. Patient denies any pulmonary symptoms. No cough no wheezing no shortness of breath. Progress note dated 01/28/2022. This is a 76-year-old male who was admitted on January 24, with aortic valve endocarditis, secondary to enterococcus faecalis. The patient remains on antibiotics in the form of ampicillin and Rocephin. The patient is not receiving any supplemental oxygen. The patient is getting saline fluid, at 30 mL an hour. The patient may end up going to the operating room tomorrow for aortic valve replacement. The surgeon has not made up his mind as yet. He had a previous aortic valve replacement 4 years ago. Lab data includes a white count 6.4, hemoglobin 11.5, hematocrit 35.1, and normal platelet count. Electrolyte profile is completely normal. Calcium is 8.2. Blood cultures here are thus far negative. Progress note dated 01/29/2022. 76-year-old male admitted on January 24, with aortic valve endocarditis, secondary to Enterococcus faecalis. The patient remains on antibiotics in the form of both ampicillin and Rocephin. He is not receiving any supplemental oxygen. The patient is getting saline at 30 mL an hour. He has not yet been seen by cardiothoracic surgery. At the current time, there is no plans for aortic valve replacement. He had a previous aortic valve replacement, 4 years ago. Current labs show white count of 5.3, hemoglobin 11.7, hematocrit 35.8, and a normal platelet count. Sodium, potassium, chloride, CO2, BUN, and creatin ine are all normal. Progress note dated 01/30/2022. 76-year-old male, admitted on January 24, with prostatic valve endocarditis, involving the aortic valve. The patient's bacteria was Enterococcus faecalis. He apparently is being readied for possible aortic valve replacement, on January 31. He is on room air. He is getting saline at 30 mL an hour. He is resting comfortably without complaints. Laboratory data today includes a white count 6.1, hemoglobin 11.7, hematocrit 35.3, platelet count 237,000. Sodium 137, potassium 4.3, chlorides 105, CO2 25, BUN 16, creatinine 1.08. Progress note dated 01/31/2022. 76-year-old male, valve replacement today. He has prosthetic valve endocardi tis, secondary to Enterococcus faecalis. The patient had an uneventful night. He was on room air before going to the operating room, and receiving saline at 30 mL an hour. Labs today include a white count 5, hemoglobin 11.1, hematocrit 33.5, and a normal platelet count. Sodium is 136, potassium 4.4, chlorides 103, CO2 24, BUN 29, creatinine 1.05. Progress note dated 02/01/2022. 76-year-old male, status post aortic valve replacement, for an infected prosthetic valve, secondary to Enterococcus faecalis. Today's postop day #1. The patient was extubated in a timely fashion. Currently, cardiac output is 8, with an index of 3.6. 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 His left chest tube in place. Insulin drip is on hold. He is getting saline at 50 mL an hour. He is on O2 at 2 L. White count 6.3, hematocrit 7.3, hematocrit 22.1, platelet count 250,000. Sodium 136, potassium 4.7, chlorides 108, CO2 22, BUN 28, and creatinine 1.17. Chest x-ray shows postoperative changes, with bilateral lower lobe atelectasis or infiltrates, and small effusions. Objective - Vital Signs Vital signs: Vital Signs Temp 98.2 F 02/01/22 09:00 Pulse 89 02/01/22 11:02 Resp 23 02/01/22 11:02 BP 111/55 02/01/22 11:02 Pulse Ox 99 02/01/22 11:02 FiO2 50 01/31/22 17:00 Intake & Output 01/31/22 02/01/22 02/01/22 18:59 06:59 18:59 Intake Total 2816.054 3775.301 577.720 Output Total 3415 823 245 Balance -5251.416 0030.301 332.720 Weight 103.3 kg Intake: IV 529 1438 389 ACETAMINOPHEN IV (For NPO 100 100 ) 1,000 mg In Empty Bag 1 bag @ 400 mls/hr IVPB Q6HR [facility] Rx#:[id number] Ampicillin 2,000 mg In 100 200 200 Sodium Chloride 0.9% 100 ml @ 200 mls/hr IVPB Q4HR [facility] Rx#:[id number] CARDIAC OUTPUT (0.9 40 330 50 Sodium Chloride) Calcium Gluconate in NaCl 100 1 gm In Saline 1 100ml. bag @ 100 mls/hr IVPB ONCE ONE Rx#:[id number] PRESSURE BAG (Sodium 36 108 39 Chloride 0.9) Sodium Chloride 0.9% 1, 150 600 50 000 ml @ 20 mls/hr IV . Q24H [facility] Rx#:[id number] cefTRIAXone 2 gm In 100 50 Sodium Chloride 0.9% 50 ml @ 100 mls/hr IVPB Q12HR [facility] Rx#:[id number] Intake, IV Titration 45.801 111.301 88.720 Amount Clevidipine Butyrate 25 2.033 55.533 mg In Empty Bag 1 bag @ 1 MG/HR 2 mls/hr IV .Q24H [facility] Rx#:[id number] Insulin Regular 100 unit 0.606 55.768 8.720 In Sodium Chloride 0.9% 100 ml @ Per Protocol IV .Q0M [facility] Rx#:[id number] Norepinephrine 4 mg In 4.19 Sodium Chloride 0.9% 250 ml @ 0.02 MCG/KG/MIN 7. 856 mls/hr IV .Q24H [facility] Rx#:[id number] Sodium Chloride 0.9% 1, 80 000 ml @ 20 mls/hr IV . Q24H [facility] Rx#:[id number] propofoL 1,000 mg In 38.972 Empty Bag 1 bag @ Titrate IV .Q0M [facility] Rx#: [id number] Oral 300 100 Blood Product 986 Ffp 24 Pher Acda Unit 210 [id number] Ffp 24 Pher Acda Unit 205 [id number] Platelet Pheresis Pas 261 Psoralen Unit [id number] Rc As-1 Unit 310 [id number] Output: Chest Tube Drainage 530 250 100 Chest Tube Bilateral 360 170 30 Mediastinal Chest Tube Left Lateral 170 80 70 Chest Urine 885 573 145 Estimated Blood Loss 1999 Other: Voiding Method Indwelling Catheter Indwelling Catheter Indwelling Catheter ABP, PAP, CO, CI - Last Documented Arterial Blood Pressure 97/35 Pulmonary Artery Pressure 36/15 Cardiac Output 5.5 Cardiac Index 2.5 - Exam No acute distress, oriented 3. Currently on 2 L nasal cannula.. HEENT examination is grossly unremarkable. Neck supple. Full range of motion. No adenopathy thyromegaly or neck vein dis tention. Cardiovascular examination reveals regular rhythm rate. S1-S2 normal. No S3 or S4. Heart rate 89 bpm. Lungs reveal clear breath sounds. Breath sounds are equal bilaterally. No adventitious lung sounds including wheezes rhonchi or crackles. Saturations on 2 L are 99 %. Abdomen soft bowel sounds are heard. No masses or tenderness. Extremities are intact. No cyanosis clubbing or edema. Skin is without rash or lesion. Neurologic examination is brief but nonfocal. - Labs CBC & Chem 7: 02/01/22 03:55 02/01/22 03:55 Labs: Abnormal Lab Results - Last 24 Hours (Table) 01/30/22 01/31/22 01/31/22 Range/Units 03:52 08:27 10:14 RBC (4.30-5.90) m/uL Hgb (13.0-17.5) gm/dL Hct (39.0-53.0) % RDW (11.5-15.5) % Plt Count (150-450) k/uL Lymphocytes # (1.0-4.8) k/uL PT (9.0-12.0) sec INR (<1.2) APTT (22.0-30.0) sec ABG pH (7.35-7.45) ABG pCO2 (35-45) mmHg ABG pO2 252 H 187 H (83-108) mmHg ABG Total CO2 26 H 27 H (19-24) mmol/L ABG O2 Saturation 99.7 H 99.4 H (94-97) % ABG Hematocrit 30 L 29 L (34.0-46.0) % ABG Potassium (3.4-4.5) mmol/L ABG Ionized Calcium (4.5-5.3) mg/dL ABG Glucose 123 H 122 H (75-99) mg/dL ABG Lactic Acid (0.5-1.6) mmol/L Hemoglobin 9.8 L 9.4 L (13.0-17.5) gm/dL Sodium (137-145) mmol/L Chloride (98-107) mmol/L BUN (9-20) mg/dL Glucose (74-99) mg/dL POC Glucose (mg/dL) (70-110) mg/dL Calcium (8.4-10.2) mg/dL Magnesium (1.6-2.3) mg/dL Alkaline Phosphatase (38-126) U/L Total Protein (6.3-8.2) g/dL Albumin (3.5-5.0) g/dL Arterial Blood Potassium (3.4-4.5) mmol/L Arterial Blood Glucose 123 H 122 H (75-99) mg/dL Crossmatch See Detail 01/31/22 01/31/22 01/31/22 Range/Units 11:18 11:54 12:30 RBC (4.30-5.90) m/uL Hgb (13.0-17.5) gm/dL Hct (39.0-53.0) % RDW (11.5-15.5) % Plt Count (150-450) k/uL Lymphocytes # (1.0-4.8) k/uL PT (9.0-12.0) sec INR (<1.2) APTT (22.0-30.0) sec ABG pH (7.35-7.45) ABG pCO2 (35-45) mmHg ABG pO2 282 H 392 H 287 H (83-108) mmHg ABG Total CO2 26 H 25 H (19-24) mmol/L ABG O2 Saturation 99.8 H 100.0 H 99.5 H (94-97) % ABG Hematocrit 22 L 25 L 23 L (34.0-46.0) % ABG Potassium 5.1 H 4.8 H (3.4-4.5) mmol/L ABG Ionized Calcium 4.4 L 4.2 L 4.3 L (4.5-5.3) mg/dL ABG Glucose 128 H 160 H 170 H (75-99) mg/dL ABG Lactic Acid (0.5-1.6) mmol/L Hemoglobin 7.1 L 8.1 L 7.4 L (13.0-17.5) gm/dL Sodium (137-145) mmol/L Chloride (98-107) mmol/L BUN (9-20) mg/dL Glucose (74-99) mg/dL POC Glucose (mg/dL) (70-110) mg/dL Calcium (8.4-10.2) mg/dL Magnesium (1.6-2.3) mg/dL Alkaline Phosphatase (38-126) U/L Total Protein (6.3-8.2) g/dL Albumin (3.5-5.0) g/dL Arterial Blood Potassium 5.1 H 4.8 H (3.4-4.5) mmol/L Arterial Blood Glucose 128 H 160 H 170 H (75-99) mg/dL Crossmatch 01/31/22 01/31/22 01/31/22 Range/Units 13:03 14:02 14:59 RBC (4.30-5.90) m/uL Hgb (13.0-17.5) gm/dL Hct (39.0-53.0) % RDW (11.5-15.5) % Plt Count (150-450) k/uL Lymphocytes # (1.0-4.8) k/uL PT (9.0-12.0) sec INR (<1.2) APTT (22.0-30.0) sec ABG pH 7.31 L 7.31 L (7.35-7.45) ABG pCO2 50 H (35-45) mmHg ABG pO2 307 H 67 L (83-108) mmHg ABG Total CO2 26 H (19-24) mmol/L ABG O2 Saturation 99.6 H 91.9 L (94-97) % ABG Hematocrit 22 L 27 L (34.0-46.0) % ABG Potassium (3.4-4.5) mmol/L ABG Ionized Calcium 4.1 L (4.5-5.3) mg/dL ABG Glucose 173 H 145 H (75-99) mg/dL ABG Lactic Acid 1.7 H (0.5-1.6) mmol/L Hemoglobin 7.2 L 8.8 L (13.0-17.5) gm/dL Sodium (137-145) mmol/L Chloride (98-107) mmol/L BUN (9-20) mg/dL Glucose (74-99) mg/dL POC Glucose (mg/dL) 141 H (70-110) mg/dL Calcium (8.4-10.2) mg/dL Magnesium (1.6-2.3) mg/dL Alkaline Phosphatase (38-126) U/L Total Protein (6.3-8.2) g/dL Albumin (3.5-5.0) g/dL Arterial Blood Potassium (3.4-4.5) mmol/L Arterial Blood Glucose 173 H 145 H (75-99) mg/dL Crossmatch 01/31/22 01/31/22 01/31/22 Range/Units 15:13 15:13 15:13 RBC 2.69 L (4.30-5.90) m/uL Hgb 8.4 L D (13.0-17.5) gm/dL Hct 25.2 L (39.0-53.0) % RDW (11.5-15.5) % Plt Count 138 L (150-450) k/uL Lymphocytes # 0.5 L (1.0-4.8) k/uL PT 13.4 H (9.0-12.0) sec INR 1.3 H (<1.2) APTT 37.1 H (22.0-30.0) sec ABG pH (7.35-7.45) ABG pCO2 (35-45) mmHg ABG pO2 (83-108) mmHg ABG Total CO2 (19-24) mmol/L ABG O2 Saturation (94-97) % ABG Hematocrit (34.0-46.0) % ABG Potassium (3.4-4.5) mmol/L ABG Ionized Calcium (4.5-5.3) mg/dL ABG Glucose (75-99) mg/dL ABG Lactic Acid (0.5-1.6) mmol/L Hemoglobin (13.0-17.5) gm/dL Sodium (137-145) mmol/L Chloride 108 H (98-107) mmol/L BUN 23 H (9-20) mg/dL Glucose 132 H (74-99) mg/dL POC Glucose (mg/dL) (70-110) mg/dL Calcium 7.8 L (8.4-10.2) mg/dL Magnesium 2.8 H (1.6-2.3) mg/dL Alkaline Phosphatase 27 L (38-126) U/L Total Protein 4.2 L (6.3-8.2) g/dL Albumin 2.5 L (3.5-5.0) g/dL Arterial Blood Potassium (3.4-4.5) mmol/L Arterial Blood Glucose (75-99) mg/dL Crossmatch 01/31/22 01/31/22 01/31/22 Range/Units 15:16 16:09 17:14 RBC (4.30-5.90) m/uL Hgb (13.0-17.5) gm/dL Hct (39.0-53.0) % RDW (11.5-15.5) % Plt Count (150-450) k/uL Lymphocytes # (1.0-4.8) k/uL PT (9.0-12.0) sec INR (<1.2) APTT (22.0-30.0) sec ABG pH 7.32 L (7.35-7.45) ABG pCO2 47 H (35-45) mmHg ABG pO2 220 H (83-108) mmHg ABG Total CO2 25 H (19-24) mmol/L ABG O2 Saturation 100.0 H (94-97) % ABG Hematocrit (34.0-46.0) % ABG Potassium (3.4-4.5) mmol/L ABG Ionized Calcium (4.5-5.3) mg/dL ABG Glucose (75-99) mg/dL ABG Lactic Acid (0.5-1.6) mmol/L Hemoglobin (13.0-17.5) gm/dL Sodium (137-145) mmol/L Chloride (98-107) mmol/L BUN (9-20) mg/dL Glucose (74-99) mg/dL POC Glucose (mg/dL) 134 H 134 H (70-110) mg/dL Calcium (8.4-10.2) mg/dL Magnesium (1.6-2.3) mg/dL Alkaline Phosphatase (38-126) U/L Total Protein (6.3-8.2) g/dL Albumin (3.5-5.0) g/dL Arterial Blood Potassium (3.4-4.5) mmol/L Arterial Blood Glucose (75-99) mg/dL Crossmatch 01/31/22 01/31/22 01/31/22 Range/Units 18:02 18:06 18:42 RBC 2.87 L (4.30-5.90) m/uL Hgb 8.6 L (13.0-17.5) gm/dL Hct 26.3 L (39.0-53.0) % RDW (11.5-15.5) % Plt Count (150-450) k/uL Lymphocytes # 0.6 L (1.0-4.8) k/uL PT (9.0-12.0) sec INR (<1.2) APTT (22.0-30.0) sec ABG pH (7.35-7.45) ABG pCO2 (35-45) mmHg ABG pO2 76 L (83-108) mmHg ABG Total CO2 25 H (19-24) mmol/L ABG O2 Saturation (94-97) % ABG Hematocrit (34.0-46.0) % ABG Potassium (3.4-4.5) mmol/L ABG Ionized Calcium (4.5-5.3) mg/dL ABG Glucose (75-99) mg/dL ABG Lactic Acid (0.5-1.6) mmol/L Hemoglobin (13.0-17.5) gm/dL Sodium (137-145) mmol/L Chloride (98-107) mmol/L BUN (9-20) mg/dL Glucose (74-99) mg/dL POC Glucose (mg/dL) 142 H (70-110) mg/dL Calcium (8.4-10.2) mg/dL Magnesium (1.6-2.3) mg/dL Alkaline Phosphatase (38-126) U/L Total Protein (6.3-8.2) g/dL Albumin (3.5-5.0) g/dL Arterial Blood Potassium (3.4-4.5) mmol/L Arterial Blood Glucose (75-99) mg/dL Crossmatch 01/31/22 01/31/22 01/31/22 Range/Units 19:03 19:58 20:58 RBC (4.30-5.90) m/uL Hgb (13.0-17.5) gm/dL Hct (39.0-53.0) % RDW (11.5-15.5) % Plt Count (150-450) k/uL Lymphocytes # (1.0-4.8) k/uL PT (9.0-12.0) sec INR (<1.2) APTT (22.0-30.0) sec ABG pH (7.35-7.45) ABG pCO2 (35-45) mmHg ABG pO2 (83-108) mmHg ABG Total CO2 (19-24) mmol/L ABG O2 Saturation (94-97) % ABG Hematocrit (34.0-46.0) % ABG Potassium (3.4-4.5) mmol/L ABG Ionized Calcium (4.5-5.3) mg/dL ABG Glucose (75-99) mg/dL ABG Lactic Acid (0.5-1.6) mmol/L Hemoglobin (13.0-17.5) gm/dL Sodium (137-145) mmol/L Chloride (98-107) mmol/L BUN (9-20) mg/dL Glucose (74-99) mg/dL POC Glucose (mg/dL) 170 H 182 H 167 H (70-110) mg/dL Calcium (8.4-10.2) mg/dL Magnesium (1.6-2.3) mg/dL Alkaline Phosphatase (38-126) U/L Total Protein (6.3-8.2) g/dL Albumin (3.5-5.0) g/dL Arterial Blood Potassium (3.4-4.5) mmol/L Arterial Blood Glucose (75-99) mg/dL Crossmatch 01/31/22 01/31/22 01/31/22 Range/Units 21:00 21:59 23:12 RBC 2.70 L (4.30-5.90) m/uL Hgb 8.0 L (13.0-17.5) gm/dL Hct 24.8 L (39.0-53.0) % RDW 15.6 H (11.5-15.5) % Plt Count (150-450) k/uL Lymphocytes # 0.4 L (1.0-4.8) k/uL PT (9.0-12.0) sec INR (<1.2) APTT (22.0-30.0) sec ABG pH (7.35-7.45) ABG pCO2 (35-45) mmHg ABG pO2 (83-108) mmHg ABG Total CO2 (19-24) mmol/L ABG O2 Saturation (94-97) % ABG Hematocrit (34.0-46.0) % ABG Potassium (3.4-4.5) mmol/L ABG Ionized Calcium (4.5-5.3) mg/dL ABG Glucose (75-99) mg/dL ABG Lactic Acid (0.5-1.6) mmol/L Hemoglobin (13.0-17.5) gm/dL Sodium (137-145) mmol/L Chloride (98-107) mmol/L BUN (9-20) mg/dL Glucose (74-99) mg/dL POC Glucose (mg/dL) 169 H 167 H (70-110) mg/dL Calcium (8.4-10.2) mg/dL Magnesium (1.6-2.3) mg/dL Alkaline Phosphatase (38-126) U/L Total Protein (6.3-8.2) g/dL Albumin (3.5-5.0) g/dL Arterial Blood Potassium (3.4-4.5) mmol/L Arterial Blood Glucose (75-99) mg/dL Crossmatch 02/01/22 02/01/22 02/01/22 Range/Units 00:23 00:58 02:05 RBC (4.30-5.90) m/uL Hgb (13.0-17.5) gm/dL Hct (39.0-53.0) % RDW (11.5-15.5) % Plt Count (150-450) k/uL Lymphocytes # (1.0-4.8) k/uL PT (9.0-12.0) sec INR (<1.2) APTT (22.0-30.0) sec ABG pH (7.35-7.45) ABG pCO2 (35-45) mmHg ABG pO2 (83-108) mmHg ABG Total CO2 (19-24) mmol/L ABG O2 Saturation (94-97) % ABG Hematocrit (34.0-46.0) % ABG Potassium (3.4-4.5) mmol/L ABG Ionized Calcium (4.5-5.3) mg/dL ABG Glucose (75-99) mg/dL ABG Lactic Acid (0.5-1.6) mmol/L Hemoglobin (13.0-17.5) gm/dL Sodium (137-145) mmol/L Chloride (98-107) mmol/L BUN (9-20) mg/dL Glucose (74-99) mg/dL POC Glucose (mg/dL) 153 H 147 H 136 H (70-110) mg/dL Calcium (8.4-10.2) mg/dL Magnesium (1.6-2.3) mg/dL Alkaline Phosphatase (38-126) U/L Total Protein (6.3-8.2) g/dL Albumin (3.5-5.0) g/dL Arterial Blood Potassium (3.4-4.5) mmol/L Arterial Blood Glucose (75-99) mg/dL Crossmatch 02/01/22 02/01/22 02/01/22 Range/Units 03:01 03:55 03:55 RBC 2.38 L (4.30-5.90) m/uL Hgb 7.3 L (13.0-17.5) gm/dL Hct 22.1 L (39.0-53.0) % RDW (11.5-15.5) % Plt Count (150-450) k/uL Lymphocytes # 0.5 L (1.0-4.8) k/uL PT (9.0-12.0) sec INR (<1.2) APTT (22.0-30.0) sec ABG pH (7.35-7.45) ABG pCO2 (35-45) mmHg ABG pO2 (83-108) mmHg ABG Total CO2 (19-24) mmol/L ABG O2 Saturation (94-97) % ABG Hematocrit (34.0-46.0) % ABG Potassium (3.4-4.5) mmol/L ABG Ionized Calcium (4.5-5.3) mg/dL ABG Glucose (75-99) mg/dL ABG Lactic Acid (0.5-1.6) mmol/L Hemoglobin (13.0-17.5) gm/dL Sodium 136 L (137-145) mmol/L Chloride 108 H (98-107) mmol/L BUN 28 H (9-20) mg/dL Glucose 110 H (74-99) mg/dL POC Glucose (mg/dL) 127 H (70-110) mg/dL Calcium 7.8 L (8.4-10.2) mg/dL Magnesium 2.6 H (1.6-2.3) mg/dL Alkaline Phosphatase 34 L (38-126) U/L Total Protein 4.2 L (6.3-8.2) g/dL Albumin 2.4 L (3.5-5.0) g/dL Arterial Blood Potassium (3.4-4.5) mmol/L Arterial Blood Glucose (75-99) mg/dL Crossmatch 02/01/22 02/01/22 02/01/22 Range/Units 03:55 05:03 06:02 RBC (4.30-5.90) m/uL Hgb (13.0-17.5) gm/dL Hct (39.0-53.0) % RDW (11.5-15.5) % Plt Count (150-450) k/uL Lymphocytes # (1.0-4.8) k/uL PT (9.0-12.0) sec INR (<1.2) APTT (22.0-30.0) sec ABG pH (7.35-7.45) ABG pCO2 (35-45) mmHg ABG pO2 (83-108) mmHg ABG Total CO2 (19-24) mmol/L ABG O2 Saturation (94-97) % ABG Hematocrit (34.0-46.0) % ABG Potassium (3.4-4.5) mmol/L ABG Ionized Calcium (4.5-5.3) mg/dL ABG Glucose (75-99) mg/dL ABG Lactic Acid (0.5-1.6) mmol/L Hemoglobin (13.0-17.5) gm/dL Sodium (137-145) mmol/L Chloride (98-107) mmol/L BUN (9-20) mg/dL Glucose (74-99) mg/dL POC Glucose (mg/dL) 119 H 115 H 115 H (70-110) mg/dL Calcium (8.4-10.2) mg/dL Magnesium (1.6-2.3) mg/dL Alkaline Phosphatase (38-126) U/L Total Protein (6.3-8.2) g/dL Albumin (3.5-5.0) g/dL Arterial Blood Potassium (3.4-4.5) mmol/L Arterial Blood Glucose (75-99) mg/dL Crossmatch 02/01/22 02/01/22 02/01/22 Range/Units 09:05 10:04 11:12 RBC (4.30-5.90) m/uL Hgb (13.0-17.5) gm/dL Hct (39.0-53.0) % RDW (11.5-15.5) % Plt Count (150-450) k/uL Lymphocytes # (1.0-4.8) k/uL PT (9.0-12.0) sec INR (<1.2) APTT (22.0-30.0) sec ABG pH (7.35-7.45) ABG pCO2 (35-45) mmHg ABG pO2 (83-108) mmHg ABG Total CO2 (19-24) mmol/L ABG O2 Saturation (94-97) % ABG Hematocrit (34.0-46.0) % ABG Potassium (3.4-4.5) mmol/L ABG Ionized Calcium (4.5-5.3) mg/dL ABG Glucose (75-99) mg/dL ABG Lactic Acid (0.5-1.6) mmol/L Hemoglobin (13.0-17.5) gm/dL Sodium (137-145) mmol/L Chloride (98-107) mmol/L BUN (9-20) mg/dL Glucose (74-99) mg/dL POC Glucose (mg/dL) 141 H 160 H 158 H (70-110) mg/dL Calcium (8.4-10.2) mg/dL Magnesium (1.6-2.3) mg/dL Alkaline Phosphatase (38-126) U/L Total Protein (6.3-8.2) g/dL Albumin (3.5-5.0) g/dL Arterial Blood Potassium (3.4-4.5) mmol/L Arterial Blood Glucose (75-99) mg/dL Crossmatch Microbiology - Last 24 Hours (Table) 01/31/22 14:03 Tissue Culture - Preliminary Other - Other 01/31/22 14:03 Anaerobic Culture - Preliminary Other - Other 01/31/22 14:04 Anaerobic Culture - Preliminary Other - Other 01/31/22 14:04 Tissue Culture - Preliminary Other - Other Assessment and Plan Assessment: Postoperative day #1, status post redo sternotomy, extraction of previous prosthetic aortic valve, and replacement with a 21 mm pericardial bioprosthesis aortic valve. Routine postoperative ventilator management, with timely extubation. Acute prosthetic aortic valve endocarditis, secondary to Enterococcus faecalis. Prior history of aortic valve replacement, 4 years ago for aortic stenosis. High-grade AV block, secondary to endocarditis. Acute encephalopathy, secondary to endocarditis and sepsis. History of COPD, stable. Essential hypertension. Type 2 diabetes mellitus. BPH. Seasonal ALLERGIC rhinitis. Plan: Plan dated 01/28/2022. The patient will be evaluated by the surgeon later today, and may end up going back to the operating room, for his aortic valve endocarditis. The patient's blood cultures at the outside hospital were positive for Enterococcus faecalis. Currently the cultures here are negative. The patient remains on ampicillin and Rocephin. We will continue to follow make recommendations along the way. Prognosis is guarded. Labs, x-rays, and medications are all reviewed. Plan dated 01/29/2022. The patient is awaiting to see the surgeon. No decision has been made in regards to surgery. The patient remains on antibiotics. Cultures at this hospital have been negative. Labs, x-rays, and medications are reviewed. Prognosis is certainly guarded. Plan dated 01/30/2022. The patient apparently is going to have aortic valve replacement tomorrow. This is according to the nurse. The patient is stable. No hemodynamic or respiratory issues. Labs, x-rays, medications are reviewed. His respiratory status is certainly stable. We will continue to follow after the procedure. Plan dated 01/31/2022. The patient will have aortic valve replacement done today. Patient has been stable since being here in the intensive care unit. The patient remains on antibiotics. Culture data has been negative. Once he leaves the operating room, our goal will be to get him extubated as soon as possible. We'll recommend postextubation incentive spirometry, deep breathing, coughing, clearing of secretions. Plan dated 02/01/2022. The patient was extubated in a timely fashion. He is currently on 2 L of oxygen. The insulin drip is on hold. He is getting saline at 50 mL an hour. His cardiac Is 8 with an index of 3.6. He is currently pacemaker dependent, may require a permanent pacemaker, early next week. We will continue to follow make recommendations along the way. Labs, x-rays, and medications are reviewed. We recommend deep breathing, coughing, and clearing of secretions. We also recommend hourly use of the incentive spirometer. Time with Patient: Greater than 30
[2022-02-01 12:15] LABS: Glucose,Whole Blood 162 mg/dL (70-110)
[2022-02-01 13:12] LABS: Glucose,Whole Blood 259 mg/dL (70-110)
[2022-02-01 14:16] LABS: Glucose,Whole Blood 251 mg/dL (70-110)
--- NOTE | 2022-02-01 14:37 | P.PN ---
Subjective Progress Note Date: 02/01/22 HISTORY OF PRESENT ILLNESS This is a 76-year-old male patient with past medical history of hypertension with hypertensive cardiovascular disease, hyperlipidemia, diabetes mellitus type 2 with diabetic polyneuropathy, enlarged prostate, history of aortic valve disease status post aortic valve replacement with a 23 mm valve on 12/04/2017, prior to that, left heart catheterization revealed 30-40% stenosis in the RCA in 2018, history of melanoma status post resection 12/07/2021, from the back. Patient initially presented to [facility] with mental status changes with significant encephalopathy. CAT scan of the brain did not show any acute infarct or bleed. Patient did have leukocytosis and low-grade fever. He is status post IV fluid resuscitation, he was started on IV antibiotics initially in the form of Levaquin and subsequently changed to ampicillin and cef triaxone by Dr. Cunningham. EKG did not show any evidence of acute changes. CAT scan of the chest abdomen and pelvis showed some perinephric stranding without evidence of hydronephrosis, there was evidence of diverticulosis without diverticulitis. CAT scan of the chest showed evidence of cardiomegaly with bilateral pleural effusion and possible pulmonary fibrosis. CAT scan of the cervical spine did show evidence of spondylosis of cervical spine without evidence of fracture. CAT scan of the brain showed brain atrophy without evidence of acute infarct or bleed, small vessel disease present. Patient was initially admitted to [facility] where he was followed by infectious disease as well as cardiology. He underwent a REESE on 01/22 revealed left ventricular systolic function normal at 55-60%, small aortic valve vegetation was present measuring 0.53 cm. Patient has bioprosthetic aortic valve. Moderate MR, [id number] tricuspid regurgitation, no pericardial effusion. Patients blood cultures were positive for enterococcus species. Patient was in a sinus rhythm with a first-degree AV block but subsequently developed a high-grade AV block on 01/24 with progressive worsening of the AV block and PVCs. Patient is complaining of left lower rib cage chest discomfort. No palpitations or dizziness. Patient was then transferred to [facility] to be evaluated by cardiothoracic surgery team. Patient is seen today in the intensive care unit, consults added for cardiology, live hanger, cardiothoracic surgery. 01/25: Patient is seen today in the ICU. He states he slept well last night. He states he is better able to take a deep breath with less pain on his left chest wall. He is able to reach 1500 MLS on incentive spirometry. He is complaining of tingling in bilateral feet. Has not had a bowel movement but feels that he needs to today. Senokot scheduled added. Blood sugar was low this morning and glimepiride decreased to 2 mg twice daily and Levemir decreased to 20 units. Patient has an external catheter in place draining clear emily urine. He has been evaluated by cardiology, cardiothoracic surgery and live hanger. Cardiology is planning for temporary pacemaker. C plan to continue close monitoring in the intensive care unit, monitor results of the blood cultures.hest x-ray reveals postoperative changes similar to prior exam. There may be some interstitial changes. Carotid ultrasound reveals slight elevated velocity in the internal carotid arteries bilaterally suggestive of 50-70 percent stenosis. There is antegrade flow in the vertebral arteries. Panorex CAT scan completed without any significant abnormalities. Arterial ultrasound bilateral lower extremities revealed normal ankle brachial indices. 01/26: Patient is lying down in bed in no acute distress, yesterday underwent temporary TVP for 2nd degree AV block, plan is to repeat REESE for further evaluation of possible abscess formation and the degree of involvement of the aortic ring of the bioprosthetic aortic valve, we will continue with IV Rocephin and Ampicillin for now, repeated blood cltures from 01/24/2022 still no growth so far, also nasal screen negative for MSSA.MRSA, bedside spirometer showed FEV2 38 % of predicted, we will continue with aggressive pulmonary toiletting, patient has been seen by multiple services , prognosis continues to be guarded, spoke with his daughter and his over the phone , they are contemplating if he should go to a [place] [facility] like [facility] or [facility], our cardiothoracic team is involved and hopefully will see patient today and alleviate his concerns and give their recommendations on surgical intervention. 01/28: The patient remains in the intensive care unit patient has been afebrile, heart rate 70s, blood pressure 157/77, pulse ox 94% on room air. supervisor lens generating is a paced rhythm. Cardiac catheterization, performed on 01/27, reveals moderate disease in the mid RCA, no evidence of high-grade stenosis in the LAD or left circumflex and placement of a temporary pacemaker. Patient will be seen by a dentist this afternoon. He is utilizing his incentive spirometry regularly and reaching 2000 2500. He is eating all of his food. He states he had a bowel movement yesterday and today. He is urinating without any difficulty. Patient is expecting to be seen by Dr. Lopez to discuss surgical options. WBC 6.4, hemoglobin 0.5, platelet count 235. BMP within normal limits. Calcium 8.2. Capillary blood glucose running between 126 and 196. Blood culture obtained on 01/24 showing no growth after 72 hours 1 specimen. 01/29: Patient was seen by the dentist yesterday and was cleared by surgery. He complains of dry mouth when he woke up this morning but otherwise no new complaints. supervisor lens generating is paced rhythm. Pulse ox 95% on room air. Blood pressure elevated 182/87. Hydrochlorothiazide 25 mg added to his blood pressure regime. Repeat blood work reveals WBC 5.3, hemoglobin 11.7, platelet count 230. Electrolytes and renal function normal. Capillary blood glucose running between 97-194. Patient is waiting to hear from the cardiothoracic team regarding plan for surgery. 01/30: Patient is scheduled for redo aortic valve replacement, possible aortic root replacement on 01/31. a consult was added for urology yesterday for recurrent UTIs. Patient denies dysuria, he is able to void spontaneously and is maintained on Flomax and Proscar. Dr. Farooq believes the culture from 2019 is contamination rather than actual UTI with history of phimosis contributing to positive culture. Plan to follow up with Dr. Emmanuel as normally scheduled. patient is continued on antibiotics the form of ampicillin and Rocephin. patient has remained afebrile. Pulse ox is 97% on room air. CM paced rhythm. Blood pressure 140/67 and has been improved overnight with addition of hydrochlorothiazide yesterday. Repeat blood work reveals WBC 6.1, hemoglobin 11.7, platelet count 237. Electrolytes and renal function are normal with creatinine of 1.08. White blood glucose running between 109 and 177. 01/31: Patient remains afebrile overnight with heart rate 49-54. Blood pressure 139/69 and pulse ox 94% on room air. Repeat blood work reveals WBC 5.0, hemoglobin 11.1, platelet count 246. Sodium 136, potassium 4.4, chloride 103, CO2 24, BUN 29 creatinine 1.05. Blood sugar 122. Capillary blood glucose running between 106 and 166. Patient is scheduled for redo aortic valve replacement today. 02/01: Patient is status post aortic valve replacement with bioprosthetic device. He remains in the intensive care unit. He was successfully extubated last evening and currently on 2 L nasal cannula with pulse ox of 97%. Heart rate is running in the 80s, blood pressure 114/60. supervisor lens generating is paced rhythm. Repeat blood work reveals WBC 6.3, hemoglobin 7.3, platelet count 150. Sodium 136, potassium 4.7, chloride 108, CO2 22, BUN 20 creatinine 1.17. Capillary blood glucose running between 110 and 127. Magnesium 2.6. Intraoperative tissue cultures are in process. Repeat chest x-ray reveals postoperative changes with bilateral infiltrate and small effusions. Patient has been started on Plavix, aspirin 325 mg daily, patient started on insulin drip, Levemir and Farxiga discontinued. The patient is complaining of sensation like urethral spasm like he has a urinary tract infection, Hargrove catheter is in place and draining. No hematuria. Patient states he is only sleeping a few minutes at a time. He does not have much appetite. REVIEW OF SYSTEMS Constitutional: No fever, no chills, no night sweats. No weight change. No weakness, denies fatigue no lethargy. No daytime sleepiness. EENT: No headache. No blurred vision or double vision, no loss of vision. No loss of Hearing, no ringing in the ears, no dizziness. No nasal drainage or congestion. No epistaxis. No sore throat. Lungs: No shortness of breath, cough, no sputum production. No wheezing. Cardiovascular: Reports chest discomfort, no lower extremity edema. No palpitations. No paroxysmal nocturnal dyspnea. No orthopnea. No lightheadedness or dizziness. No syncopal episodes. Abdominal: No abdominal pain. No nausea, vomiting. No diarrhea. No constipation. No bloody or tarry stools. Reports loss of appetite. Genitourinary: No dysuria, increased frequency, urgency. No urinary retention- Hargrove catheter in place. Patient complains of spasms in the urethra area. Musculoskeletal: No myalgias. No muscle weakness, no gait dysfunction, no f requent falls. No back pain. No neck pain. Integumentary: No wounds, no lesions. No rash or pruritus. No unusual bruising. Neurologic: No aphasia. No facial droop. No change in mentation. No head injury. No headache. No paralysis. No paresthesia. Psychiatric: No depression. No anxiety. No mood swings. Endocrine: No abnormal blood sugars. No weight change. No excessive sweating or thirst. No cold intolerance. PHYSICAL EXAMINATION Gen: This is a 76-year-old male. He is resting in ICU and recliner and appears to be in no acute distress. HEENT: Head is atraumatic, normocephalic. Pupils equal, round. Sclerae is anicteric. NECK: Supple. No JVD. No lymphadenopathy. No thyromegaly. LUNGS: Clear to auscultation. No wheezes or rhonchi. No intercostal retractions. Chest tubes in place. HEART: First heart sound is depressed, second heart sound is normal, aortic valve click, systolic ejection murmur 2/6 at the left sternal border.. ABDOMEN: Soft. Bowel sounds are present. No masses. No tenderness. EXTREMITIES: No pedal edema. No calf tenderness. Dorsalis pedis +2 bilaterally. NEUROLOGICAL: Patient is awake, alert and oriented x3. Cranial nerves 2 through 12 are grossly intact. Muscle power 4 out of 5 upper and lower extremities bilaterally. ASSESSMENT AND PLAN 1. 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 Patients mental status is back to baseline. Patient admitted into the intensive care unit, consult in place with live hanger, infectious disease, cardiothoracic surgery. Continue patient on ampicillin 2 g IV piggyback every 4 hours, ceftriaxone 2 g IV piggyback every 12 hours. Monitor for blood culture results which repeats have been negative thus far. Patient's been started on Plavix 75 mg daily, aspirin 325 mg daily. 2. High-grade AV block. Patient was transferred to [facility], S/P TVP was placed. 3. Mild elevation in troponin secondary to sepsis, stable. S/p repeat [facility]. 4. Hypertension with hypertensive cardiovascular disease. Continue patient on losartan 100 mg daily, hydralazine 25 mg 2 times daily, Cardura 8 mg twice daily, patient is off amlodipine, Lasix and hydrochlorothiazide. 5. Hyperlipidemia. Continue atorvastatin 40 mg at bedtime. 6. Diabetes mellitus type 2, uncontrolled with hypoglycemia. Patient was placed on insulin drip following surgery. Anticipate transition to Levemir and NovoLog scale tomorrow. Farxiga has been discontinued. 7. Benign prostatic hypertrophy. Continue Flomax 0.4 mg daily, continue finasteride 5 mg daily 8. 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 Continue patient on Symbicort 160- 4.5 g 2 puffs twice daily, albuterol nebulizer every 4 hours as needed for shortness of breath, reviewed bedside spirometery with FEV1 38 % of predicted. 9. ALLERGIC rhinitis. Continue Singulair 10 mg at bedtime. 10. Chronic gout. Continue allopurinol 100 mg daily. 11. DVT prophylaxis. Heparin 5000 units subcu every 8 hours. 12. GI prophylaxis. Protonix 40 mg daily. CODE STATUS: Full code. DISCHARGE PLAN Most likely home with [facility] next week Impression and plan of care have been directed as dictated by the signing physician. Maria G Paez nurse practitioner acting as scribe for signing physician. Objective - Vital Signs Vital signs: Vital Signs Temp 35.5 F L 01/31/22 16:00 Pulse 88 02/01/22 08:14 Resp 22 02/01/22 07:00 BP 114/60 02/01/22 07:00 Pulse Ox 97 02/01/22 07:00 FiO2 50 01/31/22 17:00 Intake & Output 01/31/22 02/01/22 02/01/22 18:59 06:59 18:59 Intake Total 8647.401 6215.301 189 Output Total 3415 823 55 Balance -0026.103 0263.301 134 Weight 103.3 kg Intake: IV 529 1438 189 ACETAMINOPHEN IV (For NPO 100 100 ) 1,000 mg In Empty Bag 1 bag @ 400 mls/hr IVPB Q6HR [facility] Rx#:[id number] Ampicillin 2,000 mg In 100 200 100 Sodium Chloride 0.9% 100 ml @ 200 mls/hr IVPB Q4HR [facility] Rx#:[id number] CARDIAC OUTPUT (0.9 40 330 30 Sodium Chloride) Calcium Gluconate in NaCl 100 1 gm In Saline 1 100ml. bag @ 100 mls/hr IVPB ONCE ONE Rx#:[id number] PRESSURE BAG (Sodium 36 108 9 Chloride 0.9) Sodium Chloride 0.9% 1, 150 600 50 000 ml @ 50 mls/hr IV . Q20H [facility] Rx#:[id number] cefTRIAXone 2 gm In 100 Sodium Chloride 0.9% 50 ml @ 100 mls/hr IVPB Q12HR [facility] Rx#:[id number] Intake, IV Titration 45.801 111.301 Amount Clevidipine Butyrate 25 2.033 55.533 mg In Empty Bag 1 bag @ 1 MG/HR 2 mls/hr IV .Q24H [facility] Rx#:[id number] Insulin Regular 100 unit 0.606 55.768 In Sodium Chloride 0.9% 100 ml @ Per Protocol IV .Q0M [facility] Rx#:[id number] Norepinephrine 4 mg In 4.19 Sodium Chloride 0.9% 250 ml @ 0.02 MCG/KG/MIN 7. 856 mls/hr IV .Q24H [facility] Rx#:[id number] propofoL 1,000 mg In 38.972 Empty Bag 1 bag @ Titrate IV .Q0M [facility] Rx#: [id number] Oral 300 Blood Product 986 Ffp 24 Pher Acda Unit 210 [id number] Ffp 24 Pher Acda Unit 205 [id number] Platelet Pheresis Pas 261 Psoralen Unit [id number] Rc As-1 Unit 310 [id number] Output: Chest Tube Drainage 530 250 10 Chest Tube Bilateral 360 170 0 Mediastinal Chest Tube Left Lateral 170 80 10 Chest Urine 885 573 45 Estimated Blood Loss 1999 Other: Voiding Method Indwelling Catheter Indwelling Catheter ABP, PAP, CO, CI - Last Documented Arterial Blood Pressure 167/45 Pulmonary Artery Pressure 29/13 Cardiac Output 5.5 Cardiac Index 2.5 - Labs CBC & Chem 7: 02/01/22 03:55 02/01/22 03:55 Labs: Abnormal Lab Results - Last 24 Hours (Table) 01/30/22 01/31/22 01/31/22 Range/Units 03:52 08:27 10:14 RBC (4.30-5.90) m/uL Hgb (13.0-17.5) gm/dL Hct (39.0-53.0) % RDW (11.5-15.5) % Plt Count (150-450) k/uL Lymphocytes # (1.0-4.8) k/uL PT (9.0-12.0) sec INR (<1.2) APTT (22.0-30.0) sec ABG pH (7.35-7.45) ABG pCO2 (35-45) mmHg ABG pO2 252 H 187 H (83-108) mmHg ABG Total CO2 26 H 27 H (19-24) mmol/L ABG O2 Saturation 99.7 H 99.4 H (94-97) % ABG Hematocrit 30 L 29 L (34.0-46.0) % ABG Potassium (3.4-4.5) mmol/L ABG Ionized Calcium (4.5-5.3) mg/dL ABG Glucose 123 H 122 H (75-99) mg/dL ABG Lactic Acid (0.5-1.6) mmol/L Hemoglobin 9.8 L 9.4 L (13.0-17.5) gm/dL Sodium (137-145) mmol/L Chloride (98-107) mmol/L BUN (9-20) mg/dL Glucose (74-99) mg/dL POC Glucose (mg/dL) (70-110) mg/dL Calcium (8.4-10.2) mg/dL Magnesium (1.6-2.3) mg/dL Alkaline Phosphatase (38-126) U/L Total Protein (6.3-8.2) g/dL Albumin (3.5-5.0) g/dL Arterial Blood Potassium (3.4-4.5) mmol/L Arterial Blood Glucose 123 H 122 H (75-99) mg/dL Crossmatch See Detail 01/31/22 01/31/22 01/31/22 Range/Units 11:18 11:54 12:30 RBC (4.30-5.90) m/uL Hgb (13.0-17.5) gm/dL Hct (39.0-53.0) % RDW (11.5-15.5) % Plt Count (150-450) k/uL Lymphocytes # (1.0-4.8) k/uL PT (9.0-12.0) sec INR (<1.2) APTT (22.0-30.0) sec ABG pH (7.35-7.45) ABG pCO2 (35-45) mmHg ABG pO2 282 H 392 H 287 H (83-108) mmHg ABG Total CO2 26 H 25 H (19-24) mmol/L ABG O2 Saturation 99.8 H 100.0 H 99.5 H (94-97) % ABG Hematocrit 22 L 25 L 23 L (34.0-46.0) % ABG Potassium 5.1 H 4.8 H (3.4-4.5) mmol/L ABG Ionized Calcium 4.4 L 4.2 L 4.3 L (4.5-5.3) mg/dL ABG Glucose 128 H 160 H 170 H (75-99) mg/dL ABG Lactic Acid (0.5-1.6) mmol/L Hemoglobin 7.1 L 8.1 L 7.4 L (13.0-17.5) gm/dL Sodium (137-145) mmol/L Chloride (98-107) mmol/L BUN (9-20) mg/dL Glucose (74-99) mg/dL POC Glucose (mg/dL) (70-110) mg/dL Calcium (8.4-10.2) mg/dL Magnesium (1.6-2.3) mg/dL Alkaline Phosphatase (38-126) U/L Total Protein (6.3-8.2) g/dL Albumin (3.5-5.0) g/dL Arterial Blood Potassium 5.1 H 4.8 H (3.4-4.5) mmol/L Arterial Blood Glucose 128 H 160 H 170 H (75-99) mg/dL Crossmatch 01/31/22 01/31/22 01/31/22 Range/Units 13:03 14:02 14:59 RBC (4.30-5.90) m/uL Hgb (13.0-17.5) gm/dL Hct (39.0-53.0) % RDW (11.5-15.5) % Plt Count (150-450) k/uL Lymphocytes # (1.0-4.8) k/uL PT (9.0-12.0) sec INR (<1.2) APTT (22.0-30.0) sec ABG pH 7.31 L 7.31 L (7.35-7.45) ABG pCO2 50 H (35-45) mmHg ABG pO2 307 H 67 L (83-108) mmHg ABG Total CO2 26 H (19-24) mmol/L ABG O2 Saturation 99.6 H 91.9 L (94-97) % ABG Hematocrit 22 L 27 L (34.0-46.0) % ABG Potassium (3.4-4.5) mmol/L ABG Ionized Calcium 4.1 L (4.5-5.3) mg/dL ABG Glucose 173 H 145 H (75-99) mg/dL ABG Lactic Acid 1.7 H (0.5-1.6) mmol/L Hemoglobin 7.2 L 8.8 L (13.0-17.5) gm/dL Sodium (137-145) mmol/L Chloride (98-107) mmol/L BUN (9-20) mg/dL Glucose (74-99) mg/dL POC Glucose (mg/dL) 141 H (70-110) mg/dL Calcium (8.4-10.2) mg/dL Magnesium (1.6-2.3) mg/dL Alkaline Phosphatase (38-126) U/L Total Protein (6.3-8.2) g/dL Albumin (3.5-5.0) g/dL Arterial Blood Potassium (3.4-4.5) mmol/L Arterial Blood Glucose 173 H 145 H (75-99) mg/dL Crossmatch 01/31/22 01/31/22 01/31/22 Range/Units 15:13 15:13 15:13 RBC 2.69 L (4.30-5.90) m/uL Hgb 8.4 L D (13.0-17.5) gm/dL Hct 25.2 L (39.0-53.0) % RDW (11.5-15.5) % Plt Count 138 L (150-450) k/uL Lymphocytes # 0.5 L (1.0-4.8) k/uL PT 13.4 H (9.0-12.0) sec INR 1.3 H (<1.2) APTT 37.1 H (22.0-30.0) sec ABG pH (7.35-7.45) ABG pCO2 (35-45) mmHg ABG pO2 (83-108) mmHg ABG Total CO2 (19-24) mmol/L ABG O2 Saturation (94-97) % ABG Hematocrit (34.0-46.0) % ABG Potassium (3.4-4.5) mmol/L ABG Ionized Calcium (4.5-5.3) mg/dL ABG Glucose (75-99) mg/dL ABG Lactic Acid (0.5-1.6) mmol/L Hemoglobin (13.0-17.5) gm/dL Sodium (137-145) mmol/L Chloride 108 H (98-107) mmol/L BUN 23 H (9-20) mg/dL Glucose 132 H (74-99) mg/dL POC Glucose (mg/dL) (70-110) mg/dL Calcium 7.8 L (8.4-10.2) mg/dL Magnesium 2.8 H (1.6-2.3) mg/dL Alkaline Phosphatase 27 L (38-126) U/L Total Protein 4.2 L (6.3-8.2) g/dL Albumin 2.5 L (3.5-5.0) g/dL Arterial Blood Potassium (3.4-4.5) mmol/L Arterial Blood Glucose (75-99) mg/dL Crossmatch 01/31/22 01/31/22 01/31/22 Range/Units 15:16 16:09 17:14 RBC (4.30-5.90) m/uL Hgb (13.0-17.5) gm/dL Hct (39.0-53.0) % RDW (11.5-15.5) % Plt Count (150-450) k/uL Lymphocytes # (1.0-4.8) k/uL PT (9.0-12.0) sec INR (<1.2) APTT (22.0-30.0) sec ABG pH 7.32 L (7.35-7.45) ABG pCO2 47 H (35-45) mmHg ABG pO2 220 H (83-108) mmHg ABG Total CO2 25 H (19-24) mmol/L ABG O2 Saturation 100.0 H (94-97) % ABG Hematocrit (34.0-46.0) % ABG Potassium (3.4-4.5) mmol/L ABG Ionized Calcium (4.5-5.3) mg/dL ABG Glucose (75-99) mg/dL ABG Lactic Acid (0.5-1.6) mmol/L Hemoglobin (13.0-17.5) gm/dL Sodium (137-145) mmol/L Chloride (98-107) mmol/L BUN (9-20) mg/dL Glucose (74-99) mg/dL POC Glucose (mg/dL) 134 H 134 H (70-110) mg/dL Calcium (8.4-10.2) mg/dL Magnesium (1.6-2.3) mg/dL Alkaline Phosphatase (38-126) U/L Total Protein (6.3-8.2) g/dL Albumin (3.5-5.0) g/dL Arterial Blood Potassium (3.4-4.5) mmol/L Arterial Blood Glucose (75-99) mg/dL Crossmatch 01/31/22 01/31/22 01/31/22 Range/Units 18:02 18:06 18:42 RBC 2.87 L (4.30-5.90) m/uL Hgb 8.6 L (13.0-17.5) gm/dL Hct 26.3 L (39.0-53.0) % RDW (11.5-15.5) % Plt Count (150-450) k/uL Lymphocytes # 0.6 L (1.0-4.8) k/uL PT (9.0-12.0) sec INR (<1.2) APTT (22.0-30.0) sec ABG pH (7.35-7.45) ABG pCO2 (35-45) mmHg ABG pO2 76 L (83-108) mmHg ABG Total CO2 25 H (19-24) mmol/L ABG O2 Saturation (94-97) % ABG Hematocrit (34.0-46.0) % ABG Potassium (3.4-4.5) mmol/L ABG Ionized Calcium (4.5-5.3) mg/dL ABG Glucose (75-99) mg/dL ABG Lactic Acid (0.5-1.6) mmol/L Hemoglobin (13.0-17.5) gm/dL Sodium (137-145) mmol/L Chloride (98-107) mmol/L BUN (9-20) mg/dL Glucose (74-99) mg/dL POC Glucose (mg/dL) 142 H (70-110) mg/dL Calcium (8.4-10.2) mg/dL Magnesium (1.6-2.3) mg/dL Alkaline Phosphatase (38-126) U/L Total Protein (6.3-8.2) g/dL Albumin (3.5-5.0) g/dL Arterial Blood Potassium (3.4-4.5) mmol/L Arterial Blood Glucose (75-99) mg/dL Crossmatch 01/31/22 01/31/22 01/31/22 Range/Units 19:03 19:58 20:58 RBC (4.30-5.90) m/uL Hgb (13.0-17.5) gm/dL Hct (39.0-53.0) % RDW (11.5-15.5) % Plt Count (150-450) k/uL Lymphocytes # (1.0-4.8) k/uL PT (9.0-12.0) sec INR (<1.2) APTT (22.0-30.0) sec ABG pH (7.35-7.45) ABG pCO2 (35-45) mmHg ABG pO2 (83-108) mmHg ABG Total CO2 (19-24) mmol/L ABG O2 Saturation (94-97) % ABG Hematocrit (34.0-46.0) % ABG Potassium (3.4-4.5) mmol/L ABG Ionized Calcium (4.5-5.3) mg/dL ABG Glucose (75-99) mg/dL ABG Lactic Acid (0.5-1.6) mmol/L Hemoglobin (13.0-17.5) gm/dL Sodium (137-145) mmol/L Chloride (98-107) mmol/L BUN (9-20) mg/dL Glucose (74-99) mg/dL POC Glucose (mg/dL) 170 H 182 H 167 H (70-110) mg/dL Calcium (8.4-10.2) mg/dL Magnesium (1.6-2.3) mg/dL Alkaline Phosphatase (38-126) U/L Total Protein (6.3-8.2) g/dL Albumin (3.5-5.0) g/dL Arterial Blood Potassium (3.4-4.5) mmol/L Arterial Blood Glucose (75-99) mg/dL Crossmatch 01/31/22 01/31/22 01/31/22 Range/Units 21:00 21:59 23:12 RBC 2.70 L (4.30-5.90) m/uL Hgb 8.0 L (13.0-17.5) gm/dL Hct 24.8 L (39.0-53.0) % RDW 15.6 H (11.5-15.5) % Plt Count (150-450) k/uL Lymphocytes # 0.4 L (1.0-4.8) k/uL PT (9.0-12.0) sec INR (<1.2) APTT (22.0-30.0) sec ABG pH (7.35-7.45) ABG pCO2 (35-45) mmHg ABG pO2 (83-108) mmHg ABG Total CO2 (19-24) mmol/L ABG O2 Saturation (94-97) % ABG Hematocrit (34.0-46.0) % ABG Potassium (3.4-4.5) mmol/L ABG Ionized Calcium (4.5-5.3) mg/dL ABG Glucose (75-99) mg/dL ABG Lactic Acid (0.5-1.6) mmol/L Hemoglobin (13.0-17.5) gm/dL Sodium (137-145) mmol/L Chloride (98-107) mmol/L BUN (9-20) mg/dL Glucose (74-99) mg/dL POC Glucose (mg/dL) 169 H 167 H (70-110) mg/dL Calcium (8.4-10.2) mg/dL Magnesium (1.6-2.3) mg/dL Alkaline Phosphatase (38-126) U/L Total Protein (6.3-8.2) g/dL Albumin (3.5-5.0) g/dL Arterial Blood Potassium (3.4-4.5) mmol/L Arterial Blood Glucose (75-99) mg/dL Crossmatch 02/01/22 02/01/22 02/01/22 Range/Units 00:23 00:58 02:05 RBC (4.30-5.90) m/uL Hgb (13.0-17.5) gm/dL Hct (39.0-53.0) % RDW (11.5-15.5) % Plt Count (150-450) k/uL Lymphocytes # (1.0-4.8) k/uL PT (9.0-12.0) sec INR (<1.2) APTT (22.0-30.0) sec ABG pH (7.35-7.45) ABG pCO2 (35-45) mmHg ABG pO2 (83-108) mmHg ABG Total CO2 (19-24) mmol/L ABG O2 Saturation (94-97) % ABG Hematocrit (34.0-46.0) % ABG Potassium (3.4-4.5) mmol/L ABG Ionized Calcium (4.5-5.3) mg/dL ABG Glucose (75-99) mg/dL ABG Lactic Acid (0.5-1.6) mmol/L Hemoglobin (13.0-17.5) gm/dL Sodium (137-145) mmol/L Chloride (98-107) mmol/L BUN (9-20) mg/dL Glucose (74-99) mg/dL POC Glucose (mg/dL) 153 H 147 H 136 H (70-110) mg/dL Calcium (8.4-10.2) mg/dL Magnesium (1.6-2.3) mg/dL Alkaline Phosphatase (38-126) U/L Total Protein (6.3-8.2) g/dL Albumin (3.5-5.0) g/dL Arterial Blood Potassium (3.4-4.5) mmol/L Arterial Blood Glucose (75-99) mg/dL Crossmatch 02/01/22 02/01/22 02/01/22 Range/Units 03:01 03:55 03:55 RBC 2.38 L (4.30-5.90) m/uL Hgb 7.3 L (13.0-17.5) gm/dL Hct 22.1 L (39.0-53.0) % RDW (11.5-15.5) % Plt Count (150-450) k/uL Lymphocytes # 0.5 L (1.0-4.8) k/uL PT (9.0-12.0) sec INR (<1.2) APTT (22.0-30.0) sec ABG pH (7.35-7.45) ABG pCO2 (35-45) mmHg ABG pO2 (83-108) mmHg ABG Total CO2 (19-24) mmol/L ABG O2 Saturation (94-97) % ABG Hematocrit (34.0-46.0) % ABG Potassium (3.4-4.5) mmol/L ABG Ionized Calcium (4.5-5.3) mg/dL ABG Glucose (75-99) mg/dL ABG Lactic Acid (0.5-1.6) mmol/L Hemoglobin (13.0-17.5) gm/dL Sodium 136 L (137-145) mmol/L Chloride 108 H (98-107) mmol/L BUN 28 H (9-20) mg/dL Glucose 110 H (74-99) mg/dL POC Glucose (mg/dL) 127 H (70-110) mg/dL Calcium 7.8 L (8.4-10.2) mg/dL Magnesium 2.6 H (1.6-2.3) mg/dL Alkaline Phosphatase 34 L (38-126) U/L Total Protein 4.2 L (6.3-8.2) g/dL Albumin 2.4 L (3.5-5.0) g/dL Arterial Blood Potassium (3.4-4.5) mmol/L Arterial Blood Glucose (75-99) mg/dL Crossmatch 02/01/22 02/01/22 02/01/22 Range/Units 03:55 05:03 06:02 RBC (4.30-5.90) m/uL Hgb (13.0-17.5) gm/dL Hct (39.0-53.0) % RDW (11.5-15.5) % Plt Count (150-450) k/uL Lymphocytes # (1.0-4.8) k/uL PT (9.0-12.0) sec INR (<1.2) APTT (22.0-30.0) sec ABG pH (7.35-7.45) ABG pCO2 (35-45) mmHg ABG pO2 (83-108) mmHg ABG Total CO2 (19-24) mmol/L ABG O2 Saturation (94-97) % ABG Hematocrit (34.0-46.0) % ABG Potassium (3.4-4.5) mmol/L ABG Ionized Calcium (4.5-5.3) mg/dL ABG Glucose (75-99) mg/dL ABG Lactic Acid (0.5-1.6) mmol/L Hemoglobin (13.0-17.5) gm/dL Sodium (137-145) mmol/L Chloride (98-107) mmol/L BUN (9-20) mg/dL Glucose (74-99) mg/dL POC Glucose (mg/dL) 119 H 115 H 115 H (70-110) mg/dL Calcium (8.4-10.2) mg/dL Magnesium (1.6-2.3) mg/dL Alkaline Phosphatase (38-126) U/L Total Protein (6.3-8.2) g/dL Albumin (3.5-5.0) g/dL Arterial Blood Potassium (3.4-4.5) mmol/L Arterial Blood Glucose (75-99) mg/dL Crossmatch Microbiology - Last 24 Hours (Table) 01/31/22 14:03 Tissue Culture - Preliminary Other - Other 01/31/22 14:03 Anaerobic Culture - Preliminary Other - Other 01/31/22 14:04 Anaerobic Culture - Preliminary Other - Other 01/31/22 14:04 Tissue Culture - Preliminary Other - Other
[2022-02-01] MEDS: SODIUM CHLORIDE 0.9% 1,000 ML IV SCH (15:09)
[2022-02-01 15:17] LABS: Glucose,Whole Blood 240 mg/dL (70-110)
[2022-02-01] MEDS: INSULIN REGULAR 100 UNIT in SODIUM CHLORIDE 0.9% 100 ML IV SCH ×2 (15:18→21:05)
[2022-02-01 15:25] VITALS: BMI 32.6
[2022-02-01] MEDS ORDERED: ALBUMIN HUMAN 25% 50 ML in EMPTY BAG 1 BAG IVPB ONE (15:30)
[2022-02-01] MEDS ORDERED: FUROSEMIDE 10 MG/ML 2 ML VIAL IV ONE (15:30)
[2022-02-01 16:20] LABS: Glucose,Whole Blood 203 mg/dL (70-110)
[2022-02-01 17:50] LABS: Glucose,Whole Blood 197 mg/dL (70-110)
[2022-02-01 19:03] LABS: Glucose,Whole Blood 216 mg/dL (70-110)
[2022-02-01 19:27] LABS: Magnesium 2.7 mg/dL (1.6-2.3); Potassium 4.2 mmol/L (3.5-5.1)
[2022-02-01] MEDS: SENNOSIDES-DOCUSATE SODIUM 1 EACH TAB PO SCH (20:14)
[2022-02-01] MEDS: CLOTRIMAZOLE 1% CREAM 30 GM TUBE TOPICAL SCH (20:14)
[2022-02-01 20:15] LABS: Glucose,Whole Blood 158 mg/dL (70-110)
[2022-02-01 21:03] LABS: Glucose,Whole Blood 142 mg/dL (70-110)
[2022-02-01] MEDS: BENZOCAINE/MENTHOL LOZENG 1 EACH LOZENGE MUCOUS MEM PRN (21:09)
[2022-02-01 22:05] LABS: Glucose,Whole Blood 125 mg/dL (70-110)
[2022-02-01 23:05] LABS: Glucose,Whole Blood 105 mg/dL (70-110)
[2022-02-02 00:11] LABS: Glucose,Whole Blood 116 mg/dL (70-110)
[2022-02-02] MEDS: HEPARIN SODIUM,PORCINE/PF 5,000 UNIT/0.5 ML SYRINGE SQ SCH ×3 (00:30→16:55)
[2022-02-02 01:23] LABS: Glucose,Whole Blood 163 mg/dL (70-110)
[2022-02-02 02:31] LABS: Glucose,Whole Blood 151 mg/dL (70-110)
[2022-02-02 03:13] LABS: Glucose,Whole Blood 135 mg/dL (70-110)
[2022-02-02] MEDS: AMPICILLIN 2,000 MG in SODIUM CHLORIDE 0.9% 100 ML IVPB SCH ×5 (03:13→20:32)
[2022-02-02] MEDS: HYDROcodone/APAP 7.5-325MG 1 EACH TAB PO PRN (03:16)
--- NOTE | 2022-02-02 03:56 | PN ---
PROGRESS NOTE SUBJECTIVE: This gentleman underwent a redo aortic valve replacement yesterday with a tissue valve by Dr. Lopez. 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 The patient is currently on a VVI pacemaker. He has a complete heart block prior to surgery. He is extubated, hemodynamically stable. OBJECTIVE: HEART: S1, S2 with ejection systolic murmur audible. LUNGS: Reveal fair air entry. ABDOMEN: Exam unchanged. LOWER EXTREMITIES: Exam unchanged. PLAN: Continue antibiotics and current medical regimen. Hopefully in the next 48 to 72 hours, he will need a permanent pacemaker. Dr. Scruggs apparently has been notified and is aware of this. We will continue to follow him. Prognosis remains guarded. The patient is doing very well. MMODL / IJN: [id number] /
[2022-02-02 04:00] LABS: Glucose,Whole Blood 122 mg/dL (70-110)
[2022-02-02 04:10] LABS: Anisocytosis Slight; Basophils % (A) 1 %; Eosinophils % (A) 1 %; Hypochromasia Slight; Lymphocytes # (A) 0.6 k/uL (1.0-4.8); Lymphocytes % (A) 10 %; MCHC 32.6 g/dL (31.0-37.0); Mean Platelet Volume 9.9; Monocytes # (A) 0.3 k/uL (0-1.0); Monocytes % (A) 6 %; Neutrophils # (A) 4.9 k/uL (1.3-7.7); Neutrophils % (A) 81 %; Platelet Count 131 k/uL (150-450); Poikilocytosis Slight; RBC 2.04 m/uL (4.30-5.90); RDW 16.3 % (11.5-15.5)
[2022-02-02 04:19] LABS: HCT 19.4 % (39.0-53.0); HGB 6.3 gm/dL (13.0-17.5)
[2022-02-02 04:25] LABS: Albumin 2.7 g/dL (3.5-5.0); Calcium 7.9 mg/dL (8.4-10.2); Potassium 3.9 mmol/L (3.5-5.1); Total Bilirubin 0.3 mg/dL (0.2-1.3); Total Protein 4.7 g/dL (6.3-8.2)
[2022-02-02 05:11] LABS: Glucose,Whole Blood 99 mg/dL (70-110)
[2022-02-02 05:24] LABS: Anisocytosis Slight; Basophils % (A) 0 %; Eosinophils % (A) 1 %; Hypochromasia Slight; Lymphocytes # (A) 0.7 k/uL (1.0-4.8); Lymphocytes % (A) 12 %; MCH 31.2 pg (25.0-35.0); MCHC 32.8 g/dL (31.0-37.0); MCV 95.1 fL (80.0-100.0); Mean Platelet Volume 9.9; Monocytes # (A) 0.3 k/uL (0-1.0); Monocytes % (A) 6 %; Neutrophils # (A) 4.6 k/uL (1.3-7.7); Neutrophils % (A) 80 %; Platelet Count 127 k/uL (150-450); Poikilocytosis Slight; RBC 2.07 m/uL (4.30-5.90); RDW 16.3 % (11.5-15.5); WBC 5.8 k/uL (3.8-10.6)
[2022-02-02 05:26] LABS: HGB 6.5 gm/dL (13.0-17.5)
[2022-02-02 05:27] LABS: HCT 19.7 % (39.0-53.0)
[2022-02-02 06:33] LABS: Glucose,Whole Blood 120 mg/dL (70-110)
[2022-02-02 07:00] LABS: Glucose,Whole Blood 125 mg/dL (70-110)
--- NOTE | 2022-02-02 07:06 | XR ---
EXAMINATION TYPE: XR chest 1V portable DATE OF EXAM: 02/02/2022 COMPARISON: 02/01/2022 HISTORY: Postop cardiac TECHNIQUE: Single frontal view of the chest is obtained. FINDINGS: The heart size remains prominent. The pulmonary vasculature is not congested. There is mil d ill-defined opacity in the left lung base possibly representing combination of small pleural effusi on and atelectasis but unchanged compared to previous. There has been interval removal of the Center-[place] nz catheter. There is no pneumothorax. No change in the right chest tube IMPRESSION: Interval removal of the [place] catheter with no pneumothorax. No change in the mild i nfiltrate in the left lung base as described above.
[2022-02-02] MEDS ORDERED: HYDROcodone/APAP 10-325MG 1 EACH TAB PO PRN (07:20)
--- NOTE | 2022-02-02 07:59 | P.PN ---
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 History of severe aortic valve stenosis status post aortic valve replacement with a 23 mm Inspiris bioprosthetic aortic valve in November 2017, CAD with mid RCA stenosis 50% and previous PCI in 2018, hypertension, hyperlipidemia, insulin-dependent diabetes mellitus type 2, obesity, obstructive sleep apnea without CPAP use, moderate COPD, asthma, previous tobacco dependence, benign prostatic hypertrophy, UTIs with pseudomonas in 01/2020, gout, bilateral internal carotid stenosis 50-70% POD #2 redo sternotomy, excision of the previous 23 mm Inspiris pericardial bioprosthesis and debridement of the annulus, aortic valve replacement using a 21 mm Inspiris pericardial bioprosthesis Postoperative acute blood loss anemia, expected given hemodilution and cardiopulmonary bypass pump The patient was seen and examined sitting up in a recliner in the intensive care unit in no acute distress. He remains AV paced at 80 bpm, underlying rhythm junctional in the low 50s, hemodynamically stable on no inotropes or pressors. He does complain of postoperative pain, denies shortness of breath, wants Hargrove catheter removed. Right internal jugular Cordis, right radial arterial line, mediastinal/left pleural chest tubes all remain. Hemoglobin this morning 6.5, has been trending down, patient is currently hemodynamically stable with no evidence of active bleeding. No other new concerns. Objective - Vital Signs Vital signs: Vital Signs Temp 98.4 F 02/02/22 04:00 Pulse 86 02/02/22 07:00 Resp 18 02/02/22 07:00 BP 126/70 02/01/22 18:00 Pulse Ox 97 02/02/22 07:00 FiO2 50 01/31/22 17:00 Intake & Output 02/01/22 02/02/22 02/02/22 18:59 06:59 18:59 Intake Total 1456.902 747.145 126 Output Total 445 470 60 Balance 1011.902 277.145 66 Weight 103.3 kg 105.9 kg Intake: IV 431 542 126 Ampicillin 100 100 Ampicillin 2,000 mg In 200 100 Sodium Chloride 0.9% 100 ml @ 200 mls/hr IVPB Q4HR [facility] Rx#:[id number] CARDIAC OUTPUT (0.9 50 Sodium Chloride) PRESSURE BAG (Sodium 81 72 6 Chloride 0.9) Sodium Chloride 0.9% 1, 50 220 20 000 ml @ 20 mls/hr IV . Q24H [facility] Rx#:[id number] cefTRIAXone 2 gm In 50 50 Sodium Chloride 0.9% 50 ml @ 100 mls/hr IVPB Q12HR [facility] Rx#:[id number] Intake, IV Titration 445.902 205.145 Amount Albumin Human 25% 50 ml 50 In Empty Bag 1 bag @ 50 mls/hr IVPB ONCE ONE Rx#: [id number] Ampicillin 2,000 mg In 100 100 Sodium Chloride 0.9% 100 ml @ 200 mls/hr IVPB Q4H [facility] Rx#:[id number] Insulin Regular 100 unit 75.902 85.145 In Sodium Chloride 0.9% 100 ml @ Per Protocol IV .Q0M [facility] Rx#:[id number] Sodium Chloride 0.9% 1, 220 20 000 ml @ 20 mls/hr IV . Q24H [facility] Rx#:[id number] Oral 580 Output: Chest Tube Drainage 170 50 20 Chest Tube Bilateral 50 20 10 Mediastinal Chest Tube Left Lateral 120 30 10 Chest Urine 275 420 40 Other: Voiding Method Indwelling Catheter Indwelling Catheter ABP, PAP, CO, CI - Last Documented Arterial Blood Pressure 149/39 Pulmonary Artery Pressure 36/15 Cardiac Output 5.5 Cardiac Index 2.5 - Exam CONSTITUTIONAL: Appears comfortable, cooperative, no acute distress RESPIRATORY: Lungs sounds diminished bilaterally. Respirations even, nonlabored. Currently on 2 L nasal cannula with oxygen saturation 98%. Able to achieve 750-1000 mL on incentive spirometry. Strong cough. CARDIOVASCULAR: S1, S2 present. Regular rate and rhythm, 100% AV paced on telemetry at 80 bpm, underlying rhythm junctional in the low 50s. Sternum stable. Palpable peripheral pulses bilaterally. Trace generalized edema present. No calf pain or tenderness noted. Heart hugger in place with patient demonstrating appropriate use. Antiembolism stockings, SCDs present. GASTROINTESTINAL: Abdomen soft, nontender, nondistended. Active bowel sounds present 4 quadrants. Tolerating minimal diet. Positive flatus GENITOURINARY: Hargrove present draining clear, yellow urine. Output overnight 15-40 mL per hour, 695 mL in the last 24 hours INTEGUMENTARY: Skin is warm and dry with evidence of good perfusion. Anterior chest incision well approximated and covered with dry intact dressing. NEUROLOGIC: Cranial nerves II through XII intact MUSKULOSKELETAL: Able to move all extremities, strength equal bilaterally PSYCHIATRIC: Alert and oriented to person place and time, appropriate affect, intact judgment and insight INVASIVE LINES AND TUBES: Mediastinal/left pleural chest tubes present and connected to wall suction, no air leaks present. Mediastinal tube with 10 mL serosanguineous drainage overnight, 100 mL in the last 24. Left pleural chest tube with 20 mL serosanguineous drainage overnight, 130 mL in the last 24 hours. A/V epicardial pacemaker wires present, connected to generator, DDD mode with rate 80 bpm Right internal jugular Cordis, right radial arterial line present. - Allied health notes Allied health notes reviewed: nursing - Labs CBC & Chem 7: 02/02/22 05:05 02/02/22 03:59 Labs: Abnormal Lab Results - Last 24 Hours (Table) 02/01/22 02/01/22 02/01/22 Range/Units 09:05 10:04 11:12 RBC (4.30-5.90) m/uL Hgb (13.0-17.5) gm/dL Hct (39.0-53.0) % RDW (11.5-15.5) % Plt Count (150-450) k/uL Lymphocytes # (1.0-4.8) k/uL Sodium (137-145) mmol/L Carbon Dioxide (22-30) mmol/L BUN (9-20) mg/dL Creatinine (0.66-1.25) mg/dL Glucose (74-99) mg/dL POC Glucose (mg/dL) 141 H 160 H 158 H (70-110) mg/dL Calcium (8.4-10.2) mg/dL Magnesium (1.6-2.3) mg/dL Alkaline Phosphatase (38-126) U/L Total Protein (6.3-8.2) g/dL Albumin (3.5-5.0) g/dL 02/01/22 02/01/22 02/01/22 Range/Units 12:13 13:11 14:14 RBC (4.30-5.90) m/uL Hgb (13.0-17.5) gm/dL Hct (39.0-53.0) % RDW (11.5-15.5) % Plt Count (150-450) k/uL Lymphocytes # (1.0-4.8) k/uL Sodium (137-145) mmol/L Carbon Dioxide (22-30) mmol/L BUN (9-20) mg/dL Creatinine (0.66-1.25) mg/dL Glucose (74-99) mg/dL POC Glucose (mg/dL) 162 H 259 H 251 H (70-110) mg/dL Calcium (8.4-10.2) mg/dL Magnesium (1.6-2.3) mg/dL Alkaline Phosphatase (38-126) U/L Total Protein (6.3-8.2) g/dL Albumin (3.5-5.0) g/dL 02/01/22 02/01/22 02/01/22 Range/Units 15:15 16:18 17:49 RBC (4.30-5.90) m/uL Hgb (13.0-17.5) gm/dL Hct (39.0-53.0) % RDW (11.5-15.5) % Plt Count (150-450) k/uL Lymphocytes # (1.0-4.8) k/uL Sodium (137-145) mmol/L Carbon Dioxide (22-30) mmol/L BUN (9-20) mg/dL Creatinine (0.66-1.25) mg/dL Glucose (74-99) mg/dL POC Glucose (mg/dL) 240 H 203 H 197 H (70-110) mg/dL Calcium (8.4-10.2) mg/dL Magnesium (1.6-2.3) mg/dL Alkaline Phosphatase (38-126) U/L Total Protein (6.3-8.2) g/dL Albumin (3.5-5.0) g/dL 02/01/22 02/01/22 02/01/22 Range/Units 19:00 19:01 20:12 RBC (4.30-5.90) m/uL Hgb (13.0-17.5) gm/dL Hct (39.0-53.0) % RDW (11.5-15.5) % Plt Count (150-450) k/uL Lymphocytes # (1.0-4.8) k/uL Sodium (137-145) mmol/L Carbon Dioxide (22-30) mmol/L BUN (9-20) mg/dL Creatinine (0.66-1.25) mg/dL Glucose (74-99) mg/dL POC Glucose (mg/dL) 216 H 158 H (70-110) mg/dL Calcium (8.4-10.2) mg/dL Magnesium 2.7 H (1.6-2.3) mg/dL Alkaline Phosphatase (38-126) U/L Total Protein (6.3-8.2) g/dL Albumin (3.5-5.0) g/dL 02/01/22 02/01/22 02/02/22 Range/Units 21:01 21:54 00:09 RBC (4.30-5.90) m/uL Hgb (13.0-17.5) gm/dL Hct (39.0-53.0) % RDW (11.5-15.5) % Plt Count (150-450) k/uL Lymphocytes # (1.0-4.8) k/uL Sodium (137-145) mmol/L Carbon Dioxide (22-30) mmol/L BUN (9-20) mg/dL Creatinine (0.66-1.25) mg/dL Glucose (74-99) mg/dL POC Glucose (mg/dL) 142 H 125 H 116 H (70-110) mg/dL Calcium (8.4-10.2) mg/dL Magnesium (1.6-2.3) mg/dL Alkaline Phosphatase (38-126) U/L Total Protein (6.3-8.2) g/dL Albumin (3.5-5.0) g/dL 02/02/22 02/02/22 02/02/22 Range/Units 01:20 02:30 03:11 RBC (4.30-5.90) m/uL Hgb (13.0-17.5) gm/dL Hct (39.0-53.0) % RDW (11.5-15.5) % Plt Count (150-450) k/uL Lymphocytes # (1.0-4.8) k/uL Sodium (137-145) mmol/L Carbon Dioxide (22-30) mmol/L BUN (9-20) mg/dL Creatinine (0.66-1.25) mg/dL Glucose (74-99) mg/dL POC Glucose (mg/dL) 163 H 151 H 135 H (70-110) mg/dL Calcium (8.4-10.2) mg/dL Magnesium (1.6-2.3) mg/dL Alkaline Phosphatase (38-126) U/L Total Protein (6.3-8.2) g/dL Albumin (3.5-5.0) g/dL 02/02/22 02/02/22 02/02/22 Range/Units 03:59 03:59 03:59 RBC 2.04 L (4.30-5.90) m/uL Hgb 6.3 L* (13.0-17.5) gm/dL Hct 19.4 L* (39.0-53.0) % RDW 16.3 H (11.5-15.5) % Plt Count 131 L (150-450) k/uL Lymphocytes # 0.6 L (1.0-4.8) k/uL Sodium 136 L (137-145) mmol/L Carbon Dioxide 20 L (22-30) mmol/L BUN 33 H (9-20) mg/dL Creatinine 1.46 H (0.66-1.25) mg/dL Glucose 113 H (74-99) mg/dL POC Glucose (mg/dL) 122 H (70-110) mg/dL Calcium 7.9 L (8.4-10.2) mg/dL Magnesium (1.6-2.3) mg/dL Alkaline Phosphatase 36 L (38-126) U/L Total Protein 4.7 L (6.3-8.2) g/dL Albumin 2.7 L (3.5-5.0) g/dL 02/02/22 02/02/22 02/02/22 Range/Units 05:05 06:32 06:59 RBC 2.07 L (4.30-5.90) m/uL Hgb 6.5 L* (13.0-17.5) gm/dL Hct 19.7 L* (39.0-53.0) % RDW 16.3 H (11.5-15.5) % Plt Count 127 L (150-450) k/uL Lymphocytes # 0.7 L (1.0-4.8) k/uL Sodium (137-145) mmol/L Carbon Dioxide (22-30) mmol/L BUN (9-20) mg/dL Creatinine (0.66-1.25) mg/dL Glucose (74-99) mg/dL POC Glucose (mg/dL) 120 H 125 H (70-110) mg/dL Calcium (8.4-10.2) mg/dL Magnesium (1.6-2.3) mg/dL Alkaline Phosphatase (38-126) U/L Total Protein (6.3-8.2) g/dL Albumin (3.5-5.0) g/dL Microbiology - Last 24 Hours (Table) 01/31/22 14:04 Gram Stain - Preliminary Other - Other Tissue Culture - Preliminary 01/31/22 14:03 Tissue Culture - Preliminary Other - Other - Imaging and Cardiology Chest x-ray: report reviewed, image reviewed Assessment and Plan Assessment: 1. 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 Bacteremia with enterococcus faecalis, blood cultures currently negative to date 3. Moderate mitral valve regurgitation 4. Altered mental status present on admission, resolved 5. History of severe aortic valve stenosis status post aortic valve replacement with a 23 mm Inspiris bioprosthetic aortic valve in November 2017 6. CAD with mid RCA stenosis 50% and previous PCI in 2018 7. Hypertension 8. Hyperlipidemia, treated, cholesterol 86, LDL 39 9. Insulin-dependent diabetes mellitus type 2, preoperative hemoglobin A1c 7.8% 10. Obesity 11. Obstructive sleep apnea without CPAP use 12. Moderate COPD, FEV1 59% of predicted 13. Asthma 14. Previous tobacco dependence 15. Benign prostatic hypertrophy, currently on Flomax, Cardura, Proscar 16. UTIs with pseudomonas in 01/2020 17. Gout 18. Bilateral internal carotid stenosis 50-70% 19. Postoperative acute blood loss anemia, expected given hemodilution and cardiopulmonary bypass pump Plan: 1. Continue to maximize medical therapy with aspirin, statin, Plavix, hydralazine. Beta erasto remains on hold and is contraindicated at this time due to heart block. 2. Wean O2 as tolerated. Encourage use of his incentive spirometry 10 times every hour while awake. Bronchodilators per pulmonology 3. Increase activity, ambulate as tolerated. PT/OT/cardiac rehab consulted 4. Will monitor daily labs and x-rays. Electrolyte replacement per protocol. Will transfuse 1 unit PRBCs today 5. Continue ampicillin and Rocephin per infectious disease recommendations. 6. GI and DVT prophylaxis 7. Pain control current medication regimen. Will increase [place] dose for better pain control 8. Insulin management per primary care service 9. Patient will likely need permanent pacemaker placement. Would prefer 2-3 days of continued IV antibiotics prior to insertion. Dr. Scruggs updated. In the meantime, continue AV pacing with epicardial leads 10. Continue Cordis for CVP monitoring for another 24 hours 11. Will discontinue mediastinal/left pleural chest tubes 12. Continue Hargrove catheter for another 24 hours 13. Strict accurate intake and output. Daily weights 14. More recommendations as patient progresses
--- NOTE | 2022-02-02 08:05 | P.PN ---
Subjective Progress Note Date: 02/02/22 Principal diagnosis: Status post aortic valve replacement This is a 76-year-old gentleman who underwent an aortic valve replacement using a tissue valve for infective endocarditis. The patient was seen this morning. He remains in with dynamic the stable. Unfortunately he continues to use a pacemaker and his underlying rhythm is complete heart block. He is not on any vasopressors at this point. He is not on any AV zach erasto agents as well. He is on aspirin as well as a statin is on antibiotic. Dr. Scruggs in his primary director dermatology is aware of the case. The chest x-ray was reviewed. The hemoglobin is low at 6.5 but the patient is a stable. Objective - Vital Signs Vital signs: Vital Signs Temp 98.4 F 02/02/22 04:00 Pulse 86 02/02/22 07:00 Resp 18 02/02/22 07:00 BP 126/70 02/01/22 18:00 Pulse Ox 97 02/02/22 07:00 FiO2 50 01/31/22 17:00 Intake & Output 02/01/22 02/02/22 02/02/22 18:59 06:59 18:59 Intake Total 1456.902 747.145 126 Output Total 445 470 60 Balance 1011.902 277.145 66 Weight 103.3 kg 105.9 kg Intake: IV 431 542 126 Ampicillin 100 100 Ampicillin 2,000 mg In 200 100 Sodium Chloride 0.9% 100 ml @ 200 mls/hr IVPB Q4HR [facility] Rx#:[id number] CARDIAC OUTPUT (0.9 50 Sodium Chloride) PRESSURE BAG (Sodium 81 72 6 Chloride 0.9) Sodium Chloride 0.9% 1, 50 220 20 000 ml @ 20 mls/hr IV . Q24H [facility] Rx#:[id number] cefTRIAXone 2 gm In 50 50 Sodium Chloride 0.9% 50 ml @ 100 mls/hr IVPB Q12HR [facility] Rx#:[id number] Intake, IV Titration 445.902 205.145 Amount Albumin Human 25% 50 ml 50 In Empty Bag 1 bag @ 50 mls/hr IVPB ONCE ONE Rx#: [id number] Ampicillin 2,000 mg In 100 100 Sodium Chloride 0.9% 100 ml @ 200 mls/hr IVPB Q4H [facility] Rx#:[id number] Insulin Regular 100 unit 75.902 85.145 In Sodium Chloride 0.9% 100 ml @ Per Protocol IV .Q0M [facility] Rx#:[id number] Sodium Chloride 0.9% 1, 220 20 000 ml @ 20 mls/hr IV . Q24H [facility] Rx#:[id number] Oral 580 Output: Chest Tube Drainage 170 50 20 Chest Tube Bilateral 50 20 10 Mediastinal Chest Tube Left Lateral 120 30 10 Chest Urine 275 420 40 Other: Voiding Method Indwelling Catheter Indwelling Catheter ABP, PAP, CO, CI - Last Documented Arterial Blood Pressure 149/39 Pulmonary Artery Pressure 36/15 Cardiac Output 5.5 Cardiac Index 2.5 - Constitutional General appearance: Present: no acute distress - Respiratory Respiratory: bilateral: diminished - Cardiovascular Rhythm: regular - Labs CBC & Chem 7: 02/02/22 05:05 02/02/22 03:59 Labs: Abnormal Lab Results - Last 24 Hours (Table) 02/01/22 02/01/22 02/01/22 Range/Units 09:05 10:04 11:12 RBC (4.30-5.90) m/uL Hgb (13.0-17.5) gm/dL Hct (39.0-53.0) % RDW (11.5-15.5) % Plt Count (150-450) k/uL Lymphocytes # (1.0-4.8) k/uL Sodium (137-145) mmol/L Carbon Dioxide (22-30) mmol/L BUN (9-20) mg/dL Creatinine (0.66-1.25) mg/dL Glucose (74-99) mg/dL POC Glucose (mg/dL) 141 H 160 H 158 H (70-110) mg/dL Calcium (8.4-10.2) mg/dL Magnesium (1.6-2.3) mg/dL Alkaline Phosphatase (38-126) U/L Total Protein (6.3-8.2) g/dL Albumin (3.5-5.0) g/dL 02/01/22 02/01/22 02/01/22 Range/Units 12:13 13:11 14:14 RBC (4.30-5.90) m/uL Hgb (13.0-17.5) gm/dL Hct (39.0-53.0) % RDW (11.5-15.5) % Plt Count (150-450) k/uL Lymphocytes # (1.0-4.8) k/uL Sodium (137-145) mmol/L Carbon Dioxide (22-30) mmol/L BUN (9-20) mg/dL Creatinine (0.66-1.25) mg/dL Glucose (74-99) mg/dL POC Glucose (mg/dL) 162 H 259 H 251 H (70-110) mg/dL Calcium (8.4-10.2) mg/dL Magnesium (1.6-2.3) mg/dL Alkaline Phosphatase (38-126) U/L Total Protein (6.3-8.2) g/dL Albumin (3.5-5.0) g/dL 02/01/22 02/01/22 02/01/22 Range/Units 15:15 16:18 17:49 RBC (4.30-5.90) m/uL Hgb (13.0-17.5) gm/dL Hct (39.0-53.0) % RDW (11.5-15.5) % Plt Count (150-450) k/uL Lymphocytes # (1.0-4.8) k/uL Sodium (137-145) mmol/L Carbon Dioxide (22-30) mmol/L BUN (9-20) mg/dL Creatinine (0.66-1.25) mg/dL Glucose (74-99) mg/dL POC Glucose (mg/dL) 240 H 203 H 197 H (70-110) mg/dL Calcium (8.4-10.2) mg/dL Magnesium (1.6-2.3) mg/dL Alkaline Phosphatase (38-126) U/L Total Protein (6.3-8.2) g/dL Albumin (3.5-5.0) g/dL 02/01/22 02/01/22 02/01/22 Range/Units 19:00 19:01 20:12 RBC (4.30-5.90) m/uL Hgb (13.0-17.5) gm/dL Hct (39.0-53.0) % RDW (11.5-15.5) % Plt Count (150-450) k/uL Lymphocytes # (1.0-4.8) k/uL Sodium (137-145) mmol/L Carbon Dioxide (22-30) mmol/L BUN (9-20) mg/dL Creatinine (0.66-1.25) mg/dL Glucose (74-99) mg/dL POC Glucose (mg/dL) 216 H 158 H (70-110) mg/dL Calcium (8.4-10.2) mg/dL Magnesium 2.7 H (1.6-2.3) mg/dL Alkaline Phosphatase (38-126) U/L Total Protein (6.3-8.2) g/dL Albumin (3.5-5.0) g/dL 02/01/22 02/01/22 02/02/22 Range/Units 21:01 21:54 00:09 RBC (4.30-5.90) m/uL Hgb (13.0-17.5) gm/dL Hct (39.0-53.0) % RDW (11.5-15.5) % Plt Count (150-450) k/uL Lymphocytes # (1.0-4.8) k/uL Sodium (137-145) mmol/L Carbon Dioxide (22-30) mmol/L BUN (9-20) mg/dL Creatinine (0.66-1.25) mg/dL Glucose (74-99) mg/dL POC Glucose (mg/dL) 142 H 125 H 116 H (70-110) mg/dL Calcium (8.4-10.2) mg/dL Magnesium (1.6-2.3) mg/dL Alkaline Phosphatase (38-126) U/L Total Protein (6.3-8.2) g/dL Albumin (3.5-5.0) g/dL 02/02/22 02/02/22 02/02/22 Range/Units 01:20 02:30 03:11 RBC (4.30-5.90) m/uL Hgb (13.0-17.5) gm/dL Hct (39.0-53.0) % RDW (11.5-15.5) % Plt Count (150-450) k/uL Lymphocytes # (1.0-4.8) k/uL Sodium (137-145) mmol/L Carbon Dioxide (22-30) mmol/L BUN (9-20) mg/dL Creatinine (0.66-1.25) mg/dL Glucose (74-99) mg/dL POC Glucose (mg/dL) 163 H 151 H 135 H (70-110) mg/dL Calcium (8.4-10.2) mg/dL Magnesium (1.6-2.3) mg/dL Alkaline Phosphatase (38-126) U/L Total Protein (6.3-8.2) g/dL Albumin (3.5-5.0) g/dL 02/02/22 02/02/22 02/02/22 Range/Units 03:59 03:59 03:59 RBC 2.04 L (4.30-5.90) m/uL Hgb 6.3 L* (13.0-17.5) gm/dL Hct 19.4 L* (39.0-53.0) % RDW 16.3 H (11.5-15.5) % Plt Count 131 L (150-450) k/uL Lymphocytes # 0.6 L (1.0-4.8) k/uL Sodium 136 L (137-145) mmol/L Carbon Dioxide 20 L (22-30) mmol/L BUN 33 H (9-20) mg/dL Creatinine 1.46 H (0.66-1.25) mg/dL Glucose 113 H (74-99) mg/dL POC Glucose (mg/dL) 122 H (70-110) mg/dL Calcium 7.9 L (8.4-10.2) mg/dL Magnesium (1.6-2.3) mg/dL Alkaline Phosphatase 36 L (38-126) U/L Total Protein 4.7 L (6.3-8.2) g/dL Albumin 2.7 L (3.5-5.0) g/dL 02/02/22 02/02/22 02/02/22 Range/Units 05:05 06:32 06:59 RBC 2.07 L (4.30-5.90) m/uL Hgb 6.5 L* (13.0-17.5) gm/dL Hct 19.7 L* (39.0-53.0) % RDW 16.3 H (11.5-15.5) % Plt Count 127 L (150-450) k/uL Lymphocytes # 0.7 L (1.0-4.8) k/uL Sodium (137-145) mmol/L Carbon Dioxide (22-30) mmol/L BUN (9-20) mg/dL Creatinine (0.66-1.25) mg/dL Glucose (74-99) mg/dL POC Glucose (mg/dL) 120 H 125 H (70-110) mg/dL Calcium (8.4-10.2) mg/dL Magnesium (1.6-2.3) mg/dL Alkaline Phosphatase (38-126) U/L Total Protein (6.3-8.2) g/dL Albumin (3.5-5.0) g/dL Microbiology - Last 24 Hours (Table) 01/31/22 14:04 Gram Stain - Preliminary Other - Other Tissue Culture - Preliminary 01/31/22 14:03 Tissue Culture - Preliminary Other - Other Assessment and Plan Assessment: Assessment #1 status post aortic valve replacement #2 complete heart block #3 infected endocarditis #4 multiple comorbid conditions #5 anemia likely to be blood loss anemia Plan Continue monitor the hemoglobin Continue monitor the kidney function and electrolytes Avoid any AV zach erasto agents Permanent pacemaker to be done in the next 24-40
[2022-02-02] MEDS: IPRATROPIUM-ALBUTEROL 3 ML NEB INHALATION SCH ×4 (08:12→19:46)
[2022-02-02] MEDS: SYMBICORT 160-4.5 MCG INHALER INHALATION SCH ×2 (08:13→19:47)
[2022-02-02] MEDS: hydrALAZINE HCL 25 MG TAB PO SCH ×2 (08:20→20:31)
[2022-02-02] MEDS: DOXAZOSIN 4 MG TAB PO SCH ×2 (08:20→20:32)
[2022-02-02] MEDS: ATORVASTATIN 40 MG TAB PO SCH (08:20)
[2022-02-02] MEDS: ASCORBIC ACID 500 MG TAB PO SCH ×2 (08:20→16:55)
[2022-02-02] MEDS: allopurinoL 100 MG TAB PO SCH (08:20)
[2022-02-02] MEDS: FERROUS SULFATE 325 MG TAB PO SCH ×2 (08:21→16:55)
[2022-02-02] MEDS: ASPIRIN 325 MG TAB PO SCH (08:21)
[2022-02-02] MEDS: FINASTERIDE 5 MG TAB PO SCH (08:21)
[2022-02-02] MEDS: PANTOPRAZOLE 40 MG TABLET PO SCH (08:23)
[2022-02-02] MEDS: MONTELUKAST 10 MG TAB PO SCH (08:23)
[2022-02-02] MEDS: CLOTRIMAZOLE 1% CREAM 30 GM TUBE TOPICAL SCH ×2 (08:23→20:33)
[2022-02-02] MEDS: TAMSULOSIN 0.4 MG CAP.ER.24H PO SCH (08:23)
[2022-02-02] MEDS: HYDROcodone/APAP 10-325MG 1 EACH TAB PO PRN ×2 (08:24→15:40)
[2022-02-02 08:32] LABS: Glucose,Whole Blood 153 mg/dL (70-110)
[2022-02-02 09:55] LABS: Glucose,Whole Blood 183 mg/dL (70-110)
--- NOTE | 2022-02-02 10:26 | P.PN ---
Subjective Progress Note Date: 02/02/22 Principal diagnosis: Endocarditis. Patient was reevaluated today on 01/25/22 patient remains in the ICU, remains on broad-spectrum antibiotics, he is hemodynamically stable, not in any form of distress, not requiring any pressors or any inotropes. Remains on ampicillin and Rocephin as recommended by infectious disease for his Enterococcus faecalis endocarditis. His labs today are basically unremarkable. Patient is being considered for surgical intervention by cardiothoracic surgery. Labs today were basically unremarkable including relatively normal CBC and normal basic metabolic profile Reevaluated today on 01/26/22, patient remains in the ICU, has been seen by many consultants, patient is to be seen by thoracic surgery today, apparently cardiology declined repeating is REESE, and felt very confident that the patient has endocarditis, and no need to repeat his REESE. Patient is being considered for transfer to another tertiary care center but he is yet to be seen by cardiothoracic surgery. In the meantime the patient seems to be hemodynamically stable, he is on room air, not in any distress. Reevaluated today on 01/27/22, patient is in the ICU, scheduled to undergo cardiac catheterization today. Patient is being worked up and possibly to undergo redo aortic valve replacement because of the endocarditis and he had evidence of new AV block. Today the patient will likely have placement of a temporary pacemaker since his previous temporary pacemaker is nonfunctional. Patient denies any pulmonary symptoms. No cough no wheezing no shortness of breath. Progress note dated 01/28/2022. This is a 76-year-old male who was admitted on January 24, with aortic valve endocarditis, secondary to enterococcus faecalis. The patient remains on antibiotics in the form of ampicillin and Rocephin. The patient is not receiving any supplemental oxygen. The patient is getting saline fluid, at 30 mL an hour. The patient may end up going to the operating room tomorrow for aortic valve replacement. The surgeon has not made up his mind as yet. He had a previous aortic valve replacement 4 years ago. Lab data includes a white count 6.4, hemoglobin 11.5, hematocrit 35.1, and normal platelet count. Electrolyte profile is completely normal. Calcium is 8.2. Blood cultures here are thus far negative. Progress note dated 01/29/2022. 76-year-old male admitted on January 24, with aortic valve endocarditis, secondary to Enterococcus faecalis. The patient remains on antibiotics in the form of both ampicillin and Rocephin. He is not receiving any supplemental oxygen. The patient is getting saline at 30 mL an hour. He has not yet been seen by cardiothoracic surgery. At the current time, there is no plans for aortic valve replacement. He had a previous aortic valve replacement, 4 years ago. Current labs show white count of 5.3, hemoglobin 11.7, hematocrit 35.8, and a normal platelet count. Sodium, potassium, chloride, CO2, BUN, and creatin ine are all normal. Progress note dated 01/30/2022. 76-year-old male, admitted on January 24, with prostatic valve endocarditis, involving the aortic valve. The patient's bacteria was Enterococcus faecalis. He apparently is being readied for possible aortic valve replacement, on January 31. He is on room air. He is getting saline at 30 mL an hour. He is resting comfortably without complaints. Laboratory data today includes a white count 6.1, hemoglobin 11.7, hematocrit 35.3, platelet count 237,000. Sodium 137, potassium 4.3, chlorides 105, CO2 25, BUN 16, creatinine 1.08. Progress note dated 01/31/2022. 76-year-old male, valve replacement today. He has prosthetic valve endocardi tis, secondary to Enterococcus faecalis. The patient had an uneventful night. He was on room air before going to the operating room, and receiving saline at 30 mL an hour. Labs today include a white count 5, hemoglobin 11.1, hematocrit 33.5, and a normal platelet count. Sodium is 136, potassium 4.4, chlorides 103, CO2 24, BUN 29, creatinine 1.05. Progress note dated 02/01/2022. 76-year-old male, status post aortic valve replacement, for an infected prosthetic valve, secondary to Enterococcus faecalis. Today's postop day #1. The patient was extubated in a timely fashion. Currently, cardiac output is 8, with an index of 3.6. 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 His left chest tube in place. Insulin drip is on hold. He is getting saline at 50 mL an hour. He is on O2 at 2 L. White count 6.3, hematocrit 7.3, hematocrit 22.1, platelet count 250,000. Sodium 136, potassium 4.7, chlorides 108, CO2 22, BUN 28, and creatinine 1.17. Chest x-ray shows postoperative changes, with bilateral lower lobe atelectasis or infiltrates, and small effusions. Progress note dated 02/02/2022. This is a 76-year-old male, who is postop day #2, status post aortic valve replacement. The patient had an infected prosthetic valve, secondary to En terococcus faecalis, that had been inserted for years ago for aortic stenosis. Currently, the patient is on O2 at 2 L. Is getting saline at 20 mL an hour. He's getting an insulin drip at 8.5 units an hour. Chest tubes be taken out today. He may need a pacemaker early next week. He'll get 1 unit of packed red blood cells today. White count 5.8, hemoglobin 6.5, hematocrit 19.7, and platelet count 227,000. Blood glucose 183. Additional lab work is pending. Chest x-ray shows some bibasilar atelectasis. Objective - Vital Signs Vital signs: Vital Signs Temp 98.4 F 02/02/22 09:50 Pulse 87 02/02/22 10:00 Resp 18 02/02/22 10:00 BP 134/42 02/02/22 09:50 Pulse Ox 96 02/02/22 10:00 FiO2 50 01/31/22 17:00 Intake & Output 02/01/22 02/02/22 02/02/22 18:59 06:59 18:59 Intake Total 1456.902 747.145 396.860 Output Total 445 470 140 Balance 1011.902 277.145 256.860 Weight 103.3 kg 105.9 kg Intake: IV 431 542 254 Ampicillin 100 100 Ampicillin 2,000 mg In 200 100 Sodium Chloride 0.9% 100 ml @ 200 mls/hr IVPB Q4HR [facility] Rx#:[id number] CARDIAC OUTPUT (0.9 50 Sodium Chloride) PRESSURE BAG (Sodium 81 72 24 Chloride 0.9) Sodium Chloride 0.9% 1, 50 220 80 000 ml @ 20 mls/hr IV . Q24H [facility] Rx#:[id number] cefTRIAXone 2 gm In 50 50 50 Sodium Chloride 0.9% 50 ml @ 100 mls/hr IVPB Q12HR [facility] Rx#:[id number] Intake, IV Titration 445.902 205.145 22.860 Amount Albumin Human 25% 50 ml 50 In Empty Bag 1 bag @ 50 mls/hr IVPB ONCE ONE Rx#: [id number] Ampicillin 2,000 mg In 100 100 Sodium Chloride 0.9% 100 ml @ 200 mls/hr IVPB Q4H [facility] Rx#:[id number] Insulin Regular 100 unit 75.902 85.145 22.860 In Sodium Chloride 0.9% 100 ml @ Per Protocol IV .Q0M [facility] Rx#:[id number] Sodium Chloride 0.9% 1, 220 20 000 ml @ 20 mls/hr IV . Q24H [facility] Rx#:[id number] Oral 580 120 Blood Product 0 Unit 0 Output: Chest Tube Drainage 170 50 20 Chest Tube Bilateral 50 20 10 Mediastinal Chest Tube Left Lateral 120 30 10 Chest Urine 275 420 120 Other: Voiding Method Indwelling Catheter Indwelling Catheter Indwelling Catheter ABP, PAP, CO, CI - Last Documented Arterial Blood Pressure 130/47 Pulmonary Artery Pressure 36/15 Cardiac Output 5.5 Cardiac Index 2.5 - Exam No acute distress, oriented 3. Currently on 2 L nasal cannula.. HEENT examination is grossly unremarkable. Neck supple. Full range of motion. No adenopathy thyromegaly or neck vein distention. Cardiovascular examination reveals regular rhythm rate. S1-S2 normal. No S3 or S4. Heart rate 87 bpm. Lungs reveal clear breath sounds. Breath sounds are equal bilaterally. No adventitious lung sounds including wheezes rhonchi or crackles. Saturations on 2 L are 96 %. Abdomen soft bowel sounds are heard. No masses or tenderness. Extremities are intact. No cyanosis clubbing or edema. Skin is without rash or lesion. Neurologic examination is brief but nonfocal. - Labs CBC & Chem 7: 02/02/22 05:05 02/02/22 03:59 Labs: Abnormal Lab Results - Last 24 Hours (Table) 01/30/22 02/01/22 02/01/22 Range/Units 03:52 11:12 12:13 RBC (4.30-5.90) m/uL Hgb (13.0-17.5) gm/dL Hct (39.0-53.0) % RDW (11.5-15.5) % Plt Count (150-450) k/uL Lymphocytes # (1.0-4.8) k/uL Sodium (137-145) mmol/L Carbon Dioxide (22-30) mmol/L BUN (9-20) mg/dL Creatinine (0.66-1.25) mg/dL Glucose (74-99) mg/dL POC Glucose (mg/dL) 158 H 162 H (70-110) mg/dL Calcium (8.4-10.2) mg/dL Magnesium (1.6-2.3) mg/dL Alkaline Phosphatase (38-126) U/L Total Protein (6.3-8.2) g/dL Albumin (3.5-5.0) g/dL Crossmatch See Detail 02/01/22 02/01/22 02/01/22 Range/Units 13:11 14:14 15:15 RBC (4.30-5.90) m/uL Hgb (13.0-17.5) gm/dL Hct (39.0-53.0) % RDW (11.5-15.5) % Plt Count (150-450) k/uL Lymphocytes # (1.0-4.8) k/uL Sodium (137-145) mmol/L Carbon Dioxide (22-30) mmol/L BUN (9-20) mg/dL Creatinine (0.66-1.25) mg/dL Glucose (74-99) mg/dL POC Glucose (mg/dL) 259 H 251 H 240 H (70-110) mg/dL Calcium (8.4-10.2) mg/dL Magnesium (1.6-2.3) mg/dL Alkaline Phosphatase (38-126) U/L Total Protein (6.3-8.2) g/dL Albumin (3.5-5.0) g/dL Crossmatch 02/01/22 02/01/22 02/01/22 Range/Units 16:18 17:49 19:00 RBC (4.30-5.90) m/uL Hgb (13.0-17.5) gm/dL Hct (39.0-53.0) % RDW (11.5-15.5) % Plt Count (150-450) k/uL Lymphocytes # (1.0-4.8) k/uL Sodium (137-145) mmol/L Carbon Dioxide (22-30) mmol/L BUN (9-20) mg/dL Creatinine (0.66-1.25) mg/dL Glucose (74-99) mg/dL POC Glucose (mg/dL) 203 H 197 H (70-110) mg/dL Calcium (8.4-10.2) mg/dL Magnesium 2.7 H (1.6-2.3) mg/dL Alkaline Phosphatase (38-126) U/L Total Protein (6.3-8.2) g/dL Albumin (3.5-5.0) g/dL Crossmatch 02/01/22 02/01/22 02/01/22 Range/Units 19:01 20:12 21:01 RBC (4.30-5.90) m/uL Hgb (13.0-17.5) gm/dL Hct (39.0-53.0) % RDW (11.5-15.5) % Plt Count (150-450) k/uL Lymphocytes # (1.0-4.8) k/uL Sodium (137-145) mmol/L Carbon Dioxide (22-30) mmol/L BUN (9-20) mg/dL Creatinine (0.66-1.25) mg/dL Glucose (74-99) mg/dL POC Glucose (mg/dL) 216 H 158 H 142 H (70-110) mg/dL Calcium (8.4-10.2) mg/dL Magnesium (1.6-2.3) mg/dL Alkaline Phosphatase (38-126) U/L Total Protein (6.3-8.2) g/dL Albumin (3.5-5.0) g/dL Crossmatch 02/01/22 02/02/22 02/02/22 Range/Units 21:54 00:09 01:20 RBC (4.30-5.90) m/uL Hgb (13.0-17.5) gm/dL Hct (39.0-53.0) % RDW (11.5-15.5) % Plt Count (150-450) k/uL Lymphocytes # (1.0-4.8) k/uL Sodium (137-145) mmol/L Carbon Dioxide (22-30) mmol/L BUN (9-20) mg/dL Creatinine (0.66-1.25) mg/dL Glucose (74-99) mg/dL POC Glucose (mg/dL) 125 H 116 H 163 H (70-110) mg/dL Calcium (8.4-10.2) mg/dL Magnesium (1.6-2.3) mg/dL Alkaline Phosphatase (38-126) U/L Total Protein (6.3-8.2) g/dL Albumin (3.5-5.0) g/dL Crossmatch 02/02/22 02/02/22 02/02/22 Range/Units 02:30 03:11 03:59 RBC 2.04 L (4.30-5.90) m/uL Hgb 6.3 L* (13.0-17.5) gm/dL Hct 19.4 L* (39.0-53.0) % RDW 16.3 H (11.5-15.5) % Plt Count 131 L (150-450) k/uL Lymphocytes # 0.6 L (1.0-4.8) k/uL Sodium (137-145) mmol/L Carbon Dioxide (22-30) mmol/L BUN (9-20) mg/dL Creatinine (0.66-1.25) mg/dL Glucose (74-99) mg/dL POC Glucose (mg/dL) 151 H 135 H (70-110) mg/dL Calcium (8.4-10.2) mg/dL Magnesium (1.6-2.3) mg/dL Alkaline Phosphatase (38-126) U/L Total Protein (6.3-8.2) g/dL Albumin (3.5-5.0) g/dL Crossmatch 02/02/22 02/02/22 02/02/22 Range/Units 03:59 03:59 05:05 RBC 2.07 L (4.30-5.90) m/uL Hgb 6.5 L* (13.0-17.5) gm/dL Hct 19.7 L* (39.0-53.0) % RDW 16.3 H (11.5-15.5) % Plt Count 127 L (150-450) k/uL Lymphocytes # 0.7 L (1.0-4.8) k/uL Sodium 136 L (137-145) mmol/L Carbon Dioxide 20 L (22-30) mmol/L BUN 33 H (9-20) mg/dL Creatinine 1.46 H (0.66-1.25) mg/dL Glucose 113 H (74-99) mg/dL POC Glucose (mg/dL) 122 H (70-110) mg/dL Calcium 7.9 L (8.4-10.2) mg/dL Magnesium (1.6-2.3) mg/dL Alkaline Phosphatase 36 L (38-126) U/L Total Protein 4.7 L (6.3-8.2) g/dL Albumin 2.7 L (3.5-5.0) g/dL Crossmatch 02/02/22 02/02/22 02/02/22 Range/Units 06:32 06:59 08:30 RBC (4.30-5.90) m/uL Hgb (13.0-17.5) gm/dL Hct (39.0-53.0) % RDW (11.5-15.5) % Plt Count (150-450) k/uL Lymphocytes # (1.0-4.8) k/uL Sodium (137-145) mmol/L Carbon Dioxide (22-30) mmol/L BUN (9-20) mg/dL Creatinine (0.66-1.25) mg/dL Glucose (74-99) mg/dL POC Glucose (mg/dL) 120 H 125 H 153 H (70-110) mg/dL Calcium (8.4-10.2) mg/dL Magnesium (1.6-2.3) mg/dL Alkaline Phosphatase (38-126) U/L Total Protein (6.3-8.2) g/dL Albumin (3.5-5.0) g/dL Crossmatch 02/02/22 Range/Units 09:53 RBC (4.30-5.90) m/uL Hgb (13.0-17.5) gm/dL Hct (39.0-53.0) % RDW (11.5-15.5) % Plt Count (150-450) k/uL Lymphocytes # (1.0-4.8) k/uL Sodium (137-145) mmol/L Carbon Dioxide (22-30) mmol/L BUN (9-20) mg/dL Creatinine (0.66-1.25) mg/dL Glucose (74-99) mg/dL POC Glucose (mg/dL) 183 H (70-110) mg/dL Calcium (8.4-10.2) mg/dL Magnesium (1.6-2.3) mg/dL Alkaline Phosphatase (38-126) U/L Total Protein (6.3-8.2) g/dL Albumin (3.5-5.0) g/dL Crossmatch Microbiology - Last 24 Hours (Table) 01/31/22 14:04 Gram Stain - Preliminary Other - Other Tissue Culture - Preliminary Assessment and Plan Assessment: Postoperative day #2, status post redo sternotomy, extraction of previous prosthetic aortic valve, and replacement with a 21 mm pericardial bioprosthesis aortic valve. Routine postoperative ventilator management, with timely extubation. Acute prosthetic aortic valve endocarditis, secondary to Enterococcus faecalis. Prior history of aortic valve replacement, 4 years ago for aortic stenosis. High-grade AV block, secondary to endocarditis. Acute encephalopathy, secondary to endocarditis and sepsis. History of COPD, stable. Essential hypertension. Type 2 diabetes mellitus. BPH. Seasonal ALLERGIC rhinitis. Plan: Plan dated 01/28/2022. The patient will be evaluated by the surgeon later today, and may end up going back to the operating room, for his aortic valve endocarditis. The patient's blood cultures at the outside hospital were positive for Enterococcus faecalis. Currently the cultures here are negative. The patient remains on ampicillin and Rocephin. We will continue to follow make recommendations along the way. Progn osis is guarded. Labs, x-rays, and medications are all reviewed. Plan dated 01/29/2022. The patient is awaiting to see the surgeon. No decision has been made in regards to surgery. The patient remains on antibiotics. Cultures at this hospital have been negative. Labs, x-rays, and medications are reviewed. Prognosis is certainly guarded. Plan dated 01/30/2022. The patient apparently is going to have aortic valve replacement tomorrow. This is according to the nurse. The patient is stable. No hemodynamic or respiratory issues. Labs, x-rays, medications are reviewed. His respiratory status is certainly stable. We will continue to follow after the procedure. Plan dated 01/31/2022. The patient will have aortic valve replacement done today. Patient has been stable since being here in the intensive care unit. The patient remains on antibiotics. Culture data has been negative. Once he leaves the operating room, our goal will be to get him extubated as soon as possible. We'll recommend postextubation incentive spirometry, deep breathing, coughing, clearing of secretions. Plan dated 02/01/2022. The patient was extubated in a timely fashion. He is currently on 2 L of oxygen. The insulin drip is on hold. He is getting saline at 50 mL an hour. His cardiac Is 8 with an index of 3.6. He is currently pacemaker dependent, may require a permanent pacemaker, early next week. We will continue to follow make recommendations along the way. Labs, x-rays, and medications are reviewed. We recommend deep breathing, coughing, and clearing of secretions. We also recomm end hourly use of the incentive spirometer. Plan dated 02/02/2022. The patient remains on 2 L of oxygen. He is getting an insulin drip at 8.5 units an hour. He is on saline at 20 mL an hour. For a low hemoglobin, he'll get 1 unit of packed red blood cells. The patient may need a pacemaker next week. We encourage him to continue to deep breathe, cough, and clear secretions. We also recommend hourly use of the incentive spirometer. Labs, x- rays, and medications are all reviewed. Time with Patient: Less than 30
[2022-02-02 11:20] LABS: Glucose,Whole Blood 160 mg/dL (70-110)
[2022-02-02] MEDS ORDERED: DEXTROSE 50% SYRINGE 50 ML IVP PRN ×2 (11:34)
[2022-02-02 12:02] LABS: Glucose,Whole Blood 132 mg/dL (70-110)
[2022-02-02] MEDS: INSULIN ASPART (NovoLOG) 100 UNIT/ML VIAL SQ SCH ×5 (12:03→20:30)
--- NOTE | 2022-02-02 13:01 | P.PN ---
Subjective Progress Note Date: 02/02/22 HISTORY OF PRESENT ILLNESS This is a 76-year-old male patient with past medical history of hypertension with hypertensive cardiovascular disease, hyperlipidemia, diabetes mellitus type 2 with diabetic polyneuropathy, enlarged prostate, history of aortic valve disease status post aortic valve replacement with a 23 mm valve on 12/04/2017, prior to that, left heart catheterization revealed 30-40% stenosis in the RCA in 2018, history of melanoma status post resection 12/07/2021, from the back. Patient initially presented to [facility] with mental status changes with significant encephalopathy. CAT scan of the brain did not show any acute infarct or bleed. Patient did have leukocytosis and low-grade fever. He is status post IV fluid resuscitation, he was started on IV antibiotics initially in the form of Levaquin and subsequently changed to ampicillin and cef triaxone by Dr. Cunningham. EKG did not show any evidence of acute changes. CAT scan of the chest abdomen and pelvis showed some perinephric stranding without evidence of hydronephrosis, there was evidence of diverticulosis without diverticulitis. CAT scan of the chest showed evidence of cardiomegaly with bilateral pleural effusion and possible pulmonary fibrosis. CAT scan of the cervical spine did show evidence of spondylosis of cervical spine without evidence of fracture. CAT scan of the brain showed brain atrophy without evidence of acute infarct or bleed, small vessel disease present. Patient was initially admitted to [facility] where he was followed by infectious disease as well as cardiology. He underwent a REESE on 01/22 revealed left ventricular systolic function normal at 55-60%, small aortic valve vegetation was present measuring 0.53 cm. Patient has bioprosthetic aortic valve. Moderate MR, [id number] tricuspid regurgitation, no pericardial effusion. Patients blood cultures were positive for enterococcus species. Patient was in a sinus rhythm with a first-degree AV block but subsequently developed a high-grade AV block on 01/24 with progressive worsening of the AV block and PVCs. Patient is complaining of left lower rib cage chest discomfort. No palpitations or dizziness. Patient was then transferred to [facility] to be evaluated by cardiothoracic surgery team. Patient is seen today in the intensive care unit, consults added for cardiology, stock broker, cardiothoracic surgery. 01/25: Patient is seen today in the ICU. He states he slept well last night. He states he is better able to take a deep breath with less pain on his left chest wall. He is able to reach 1500 MLS on incentive spirometry. He is complaining of tingling in bilateral feet. Has not had a bowel movement but feels that he needs to today. Senokot scheduled added. Blood sugar was low this morning and glimepiride decreased to 2 mg twice daily and Levemir decreased to 20 units. Patient has an external catheter in place draining clear emily urine. He has been evaluated by cardiology, cardiothoracic surgery and stock broker. Cardiology is planning for temporary pacemaker. C plan to continue close monitoring in the intensive care unit, monitor results of the blood cultures.hest x-ray reveals postoperative changes similar to prior exam. There may be some interstitial changes. Carotid ultrasound reveals slight elevated velocity in the internal carotid arteries bilaterally suggestive of 50-70 percent stenosis. There is antegrade flow in the vertebral arteries. Panorex CAT scan completed without any significant abnormalities. Arterial ultrasound bilateral lower extremities revealed normal ankle brachial indices. 01/26: Patient is lying down in bed in no acute distress, yesterday underwent temporary TVP for 2nd degree AV block, plan is to repeat REESE for further evaluation of possible abscess formation and the degree of involvement of the aortic ring of the bioprosthetic aortic valve, we will continue with IV Rocephin and Ampicillin for now, repeated blood cltures from 01/24/2022 still no growth so far, also nasal screen negative for MSSA.MRSA, bedside spirometer showed FEV2 38 % of predicted, we will continue with aggressive pulmonary toiletting, patient has been seen by multiple services , prognosis continues to be guarded, spoke with his daughter and his over the phone , they are contemplating if he should go [facility] or [facility], our cardiothoracic team is involved and hopefully will see patient today and alleviate his concerns and give their recommendations on surgical intervention. 01/28: The patient remains in the intensive care unit patient has been afebrile, heart rate 70s, blood pressure 157/77, pulse ox 94% on room air. electronic device monitor is a paced rhythm. Cardiac catheterization, performed on 01/27, reveals moderate disease in the mid RCA, no evidence of high-grade stenosis in the LAD or left circumflex and placement of a temporary pacemaker. Patient will be seen by a dentist this afternoon. He is utilizing his incentive spirometry regularly and reaching 2000 2500. He is eating all of his food. He states he had a bowel movement yesterday and today. He is urinating without any difficulty. Patient is expecting to be seen by Dr. Lopez to discuss surgical options. WBC 6.4, hemoglobin 0.5, platelet count 235. BMP within normal limits. Calcium 8.2. Capillary blood glucose running between 126 and 196. Blood culture obtained on 01/24 showing no growth after 72 hours 1 specimen. 01/29: Patient was seen by the dentist yesterday and was cleared by surgery. He complains of dry mouth when he woke up this morning but otherwise no new complaints. electronic device monitor is paced rhythm. Pulse ox 95% on room air. Blood pressure elevated 182/87. Hydrochlorothiazide 25 mg added to his blood pressure regime. Repeat blood work reveals WBC 5.3, hemoglobin 11.7, platelet count 230. Electrolytes and renal function normal. Capillary blood glucose running between 97-194. Patient is waiting to hear from the cardiothoracic team regarding plan for surgery. 01/30: Patient is scheduled for redo aortic valve replacement, possible aortic root replacement on 01/31. a consult was added for urology yesterday for recurrent UTIs. Patient denies dysuria, he is able to void spontaneously and is maintained on Flomax and Proscar. Dr. Farooq believes the culture from 2019 is contamination rather than actual UTI with history of phimosis contributing to positive culture. Plan to follow up with Dr. Emmanuel as normally scheduled. patient is continued on antibiotics the form of ampicillin and Rocephin. patient has remained afebrile. Pulse ox is 97% on room air. CM paced rhythm. Blood pressure 140/67 and has been improved overnight with addition of hydrochlorothiazide yesterday. Repeat blood work reveals WBC 6.1, hemoglobin 11.7, platelet count 237. Electrolytes and renal function are normal with creatinine of 1.08. White blood glucose running between 109 and 177. 01/31: Patient remains afebrile overnight with heart rate 49-54. Blood pressure 139/69 and pulse ox 94% on room air. Repeat blood work reveals WBC 5.0, hemoglobin 11.1, platelet count 246. Sodium 136, potassium 4.4, chloride 103, CO2 24, BUN 29 creatinine 1.05. Blood sugar 122. Capillary blood glucose running between 106 and 166. Patient is scheduled for redo aortic valve replacement today. 02/01: Patient is status post aortic valve replacement with bioprosthetic device. He remains in the intensive care unit. He was successfully extubated last evening and currently on 2 L nasal cannula with pulse ox of 97%. Heart rate is running in the 80s, blood pressure 114/60. electronic device monitor is paced rhythm. Repeat blood work reveals WBC 6.3, hemoglobin 7.3, platelet count 150. Sodium 136, potassium 4.7, chloride 108, CO2 22, BUN 20 creatinine 1.17. Capillary blood glucose running between 110 and 127. Magnesium 2.6. Intraoperative tissue cultures are in process. Repeat chest x-ray reveals postoperative changes with bilateral infiltrate and small effusions. Patient has been started on Plavix, aspirin 325 mg daily, patient started on insulin drip, Levemir and Farxiga discontinued. The patient is complaining of sensation like urethral spasm like he has a urinary tract infection, Hargrove catheter is in place and draining. No hematuria. Patient states he is only sleeping a few minutes at a time. He does not have much appetite. 02/02 : Patient is feeling weak today , somewhat forgetful, did receive one unit of PRBC, chest tubes were removed and he will be switched to Levemir 24 units sc qhs and Novolog 5 units AC meals plus SSI and he will comeoff insulin drip, he continues to have dysuria, has Hargrove catheter in place and we will continue to have chronic phimosis that will require surgery down the line. REVIEW OF SYSTEMS Constitutional: No fever, no chills, no night sweats. No weight change. No weakness, denies fatigue no lethargy. No daytime sleepiness. EENT: No headache. No blurred vision or double vision, no loss of vision. No loss of Hearing, no ringing in the ears, no dizziness. No nasal drainage or congestion. No epistaxis. No sore throat. Lungs: No shortness of breath, cough, no sputum production. No wheezing. Cardiovascular: Reports chest discomfort, no lower extremity edema. No palpi tations. No paroxysmal nocturnal dyspnea. No orthopnea. No lightheadedness or dizziness. No syncopal episodes. Abdominal: No abdominal pain. No nausea, vomiting. No diarrhea. No constipation. No bloody or tarry stools. Reports loss of appetite. Genitourinary: No dysuria, increased frequency, urgency. No urinary retention- Hargrove catheter in place. Patient complains of spasms in the urethra area. Musculoskeletal: No myalgias. No muscle weakness, no gait dysfunction, no frequent falls. No back pain. No neck pain. Integumentary: No wounds, no lesions. No rash or pruritus. No unusual bruising. Neurologic: No aphasia. No facial droop. No change in mentation. No head injury. No headache. No paralysis. No paresthesia. Psychiatric: No depression. No anxiety. No mood swings. Endocrine: No abnormal blood sugars. No weight change. No excessive sweating or thirst. No cold intolerance. PHYSICAL EXAMINATION Gen: This is a 76-year-old male. He is resting in ICU and recliner and appears to be in no acute distress. HEENT: Head is atraumatic, normocephalic. Pupils equal, round. Sclerae is anicteric. NECK: Supple. No JVD. No lymphadenopathy. No thyromegaly. LUNGS: Decrease breath sounds at the bases No wheezes or rhonchi, sternotomy site is covered with pressure dressing, minmal tenderness to palpation, chest tubes were removed. HEART: First heart sound is depressed, second heart sound is normal, aortic valve click, systolic ejection murmur 2/6 at the left sternal border.. ABDOMEN: Soft. Bowel sounds are present. No masses. No tenderness. EXTREMITIES:+1 pedal edema. No calf tenderness. Dorsalis pedis +2 bilaterally. NEUROLOGICAL: Patient is awake, alert and oriented x3. Cranial nerves 2 through 12 are grossly intact. Muscle power 4 out of 5 upper and lower extremities bilaterally. ASSESSMENT AND PLAN 1. 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 2. Third degree AV block. has a temporary Pacemake in. 3. Enterococcus Feacalis Endocarditis. we will continue with Rocephin 2 gr IVPB Q 12 hours and Ampicillin 2 gr IVPB Q 6 hours, ID team is following. 4. Hypertension with hypertensive cardiovascular disease. Continue patient on Hydralazine 25 mg po bid and Cardura 8 mg po bid. 5. Hyperlipidemia. Continue atorvastatin 40 mg at bedtime. 6. Diabetes mellitus type 2. we will transition from insulin drip into Levemir 24 units Sc qhs , Novolog 5 units AC meals tid along with SSI. 7. Benign prostatic hypertrophy. Continue Flomax 0.4 mg daily, continue finasteride 5 mg daily 8. 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 Continue patient on Symbicort 160- 4.5 g 2 puffs twice daily, albuterol nebulizer every 4 hours as needed for shortness of breath, reviewed bedside spirometery with FEV1 38 % of predicted. 9. ALLERGIC rhinitis. Continue Singulair 10 mg at bedtime. 10. Chronic gout. Continue allopurinol 100 mg daily. 11. DVT prophylaxis. Heparin 5000 units subcu every 8 hours. 12. GI prophylaxis. Protonix 40 mg daily. 13. Acute blood loss Anemia, S/P 1 units of PRBCs. 14. Medical debility. we ill require inpatient rehab. CODE STATUS: Full code. DISCHARGE PLAN Most likely home with [facility] next week VS Inpatient rehab. Objective - Vital Signs Vital signs: Vital Signs Temp 98.6 F 02/02/22 12:00 Pulse 80 02/02/22 12:38 Resp 19 02/02/22 12:00 BP 145/50 02/02/22 11:23 Pulse Ox 93 L 02/02/22 12:00 FiO2 50 01/31/22 17:00 Intake & Output 02/01/22 02/02/22 02/02/22 18:59 06:59 18:59 Intake Total 1456.902 747.145 943.884 Output Total 445 470 185 Balance 1011.902 277.145 758.884 Weight 103.3 kg 105.9 kg Intake: IV 431 542 306 Ampicillin 100 100 Ampicillin 2,000 mg In 200 100 Sodium Chloride 0.9% 100 ml @ 200 mls/hr IVPB Q4HR [facility] Rx#:[id number] CARDIAC OUTPUT (0.9 50 Sodium Chloride) PRESSURE BAG (Sodium 81 72 36 Chloride 0.9) Sodium Chloride 0.9% 1, 50 220 120 000 ml @ 20 mls/hr IV . Q24H [facility] Rx#:[id number] cefTRIAXone 2 gm In 50 50 50 Sodium Chloride 0.9% 50 ml @ 100 mls/hr IVPB Q12HR [facility] Rx#:[id number] Intake, IV Titration 445.902 205.145 37.884 Amount Albumin Human 25% 50 ml 50 In Empty Bag 1 bag @ 50 mls/hr IVPB ONCE ONE Rx#: [id number] Ampicillin 2,000 mg In 100 100 Sodium Chloride 0.9% 100 ml @ 200 mls/hr IVPB Q4H [facility] Rx#:[id number] Insulin Regular 100 unit 75.902 85.145 37.884 In Sodium Chloride 0.9% 100 ml @ Per Protocol IV .Q0M [facility] Rx#:[id number] Sodium Chloride 0.9% 1, 220 20 000 ml @ 20 mls/hr IV . Q24H [facility] Rx#:[id number] Oral 580 240 Blood Product 310 Rc As-1 Unit 310 [id number] Other 50 Rc As-1 Unit 50 [id number] Output: Chest Tube Drainage 170 50 20 Chest Tube Bilateral 50 20 10 Mediastinal Chest Tube Left Lateral 120 30 10 Chest Urine 275 420 165 Other: Voiding Method Indwelling Catheter Indwelling Catheter Indwelling Catheter ABP, PAP, CO, CI - Last Documented Arterial Blood Pressure 143/49 Pulmonary Artery Pressure 36/15 Cardiac Output 5.5 Cardiac Index 2.5 - Labs CBC & Chem 7: 02/02/22 05:05 02/02/22 03:59 Labs: Abnormal Lab Results - Last 24 Hours (Table) 01/30/22 02/01/22 02/01/22 Range/Units 03:52 13:11 14:14 RBC (4.30-5.90) m/uL Hgb (13.0-17.5) gm/dL Hct (39.0-53.0) % RDW (11.5-15.5) % Plt Count (150-450) k/uL Lymphocytes # (1.0-4.8) k/uL Sodium (137-145) mmol/L Carbon Dioxide (22-30) mmol/L BUN (9-20) mg/dL Creatinine (0.66-1.25) mg/dL Glucose (74-99) mg/dL POC Glucose (mg/dL) 259 H 251 H (70-110) mg/dL Calcium (8.4-10.2) mg/dL Magnesium (1.6-2.3) mg/dL Alkaline Phosphatase (38-126) U/L Total Protein (6.3-8.2) g/dL Albumin (3.5-5.0) g/dL Crossmatch See Detail 02/01/22 02/01/22 02/01/22 Range/Units 15:15 16:18 17:49 RBC (4.30-5.90) m/uL Hgb (13.0-17.5) gm/dL Hct (39.0-53.0) % RDW (11.5-15.5) % Plt Count (150-450) k/uL Lymphocytes # (1.0-4.8) k/uL Sodium (137-145) mmol/L Carbon Dioxide (22-30) mmol/L BUN (9-20) mg/dL Creatinine (0.66-1.25) mg/dL Glucose (74-99) mg/dL POC Glucose (mg/dL) 240 H 203 H 197 H (70-110) mg/dL Calcium (8.4-10.2) mg/dL Magnesium (1.6-2.3) mg/dL Alkaline Phosphatase (38-126) U/L Total Protein (6.3-8.2) g/dL Albumin (3.5-5.0) g/dL Crossmatch 02/01/22 02/01/22 02/01/22 Range/Units 19:00 19:01 20:12 RBC (4.30-5.90) m/uL Hgb (13.0-17.5) gm/dL Hct (39.0-53.0) % RDW (11.5-15.5) % Plt Count (150-450) k/uL Lymphocytes # (1.0-4.8) k/uL Sodium (137-145) mmol/L Carbon Dioxide (22-30) mmol/L BUN (9-20) mg/dL Creatinine (0.66-1.25) mg/dL Glucose (74-99) mg/dL POC Glucose (mg/dL) 216 H 158 H (70-110) mg/dL Calcium (8.4-10.2) mg/dL Magnesium 2.7 H (1.6-2.3) mg/dL Alkaline Phosphatase (38-126) U/L Total Protein (6.3-8.2) g/dL Albumin (3.5-5.0) g/dL Crossmatch 02/01/22 02/01/22 02/02/22 Range/Units 21:01 21:54 00:09 RBC (4.30-5.90) m/uL Hgb (13.0-17.5) gm/dL Hct (39.0-53.0) % RDW (11.5-15.5) % Plt Count (150-450) k/uL Lymphocytes # (1.0-4.8) k/uL Sodium (137-145) mmol/L Carbon Dioxide (22-30) mmol/L BUN (9-20) mg/dL Creatinine (0.66-1.25) mg/dL Glucose (74-99) mg/dL POC Glucose (mg/dL) 142 H 125 H 116 H (70-110) mg/dL Calcium (8.4-10.2) mg/dL Magnesium (1.6-2.3) mg/dL Alkaline Phosphatase (38-126) U/L Total Protein (6.3-8.2) g/dL Albumin (3.5-5.0) g/dL Crossmatch 02/02/22 02/02/22 02/02/22 Range/Units 01:20 02:30 03:11 RBC (4.30-5.90) m/uL Hgb (13.0-17.5) gm/dL Hct (39.0-53.0) % RDW (11.5-15.5) % Plt Count (150-450) k/uL Lymphocytes # (1.0-4.8) k/uL Sodium (137-145) mmol/L Carbon Dioxide (22-30) mmol/L BUN (9-20) mg/dL Creatinine (0.66-1.25) mg/dL Glucose (74-99) mg/dL POC Glucose (mg/dL) 163 H 151 H 135 H (70-110) mg/dL Calcium (8.4-10.2) mg/dL Magnesium (1.6-2.3) mg/dL Alkaline Phosphatase (38-126) U/L Total Protein (6.3-8.2) g/dL Albumin (3.5-5.0) g/dL Crossmatch 02/02/22 02/02/22 02/02/22 Range/Units 03:59 03:59 03:59 RBC 2.04 L (4.30-5.90) m/uL Hgb 6.3 L* (13.0-17.5) gm/dL Hct 19.4 L* (39.0-53.0) % RDW 16.3 H (11.5-15.5) % Plt Count 131 L (150-450) k/uL Lymphocytes # 0.6 L (1.0-4.8) k/uL Sodium 136 L (137-145) mmol/L Carbon Dioxide 20 L (22-30) mmol/L BUN 33 H (9-20) mg/dL Creatinine 1.46 H (0.66-1.25) mg/dL Glucose 113 H (74-99) mg/dL POC Glucose (mg/dL) 122 H (70-110) mg/dL Calcium 7.9 L (8.4-10.2) mg/dL Magnesium (1.6-2.3) mg/dL Alkaline Phosphatase 36 L (38-126) U/L Total Protein 4.7 L (6.3-8.2) g/dL Albumin 2.7 L (3.5-5.0) g/dL Crossmatch 02/02/22 02/02/22 02/02/22 Range/Units 05:05 06:32 06:59 RBC 2.07 L (4.30-5.90) m/uL Hgb 6.5 L* (13.0-17.5) gm/dL Hct 19.7 L* (39.0-53.0) % RDW 16.3 H (11.5-15.5) % Plt Count 127 L (150-450) k/uL Lymphocytes # 0.7 L (1.0-4.8) k/uL Sodium (137-145) mmol/L Carbon Dioxide (22-30) mmol/L BUN (9-20) mg/dL Creatinine (0.66-1.25) mg/dL Glucose (74-99) mg/dL POC Glucose (mg/dL) 120 H 125 H (70-110) mg/dL Calcium (8.4-10.2) mg/dL Magnesium (1.6-2.3) mg/dL Alkaline Phosphatase (38-126) U/L Total Protein (6.3-8.2) g/dL Albumin (3.5-5.0) g/dL Crossmatch 02/02/22 02/02/22 02/02/22 Range/Units 08:30 09:53 11:18 RBC (4.30-5.90) m/uL Hgb (13.0-17.5) gm/dL Hct (39.0-53.0) % RDW (11.5-15.5) % Plt Count (150-450) k/uL Lymphocytes # (1.0-4.8) k/uL Sodium (137-145) mmol/L Carbon Dioxide (22-30) mmol/L BUN (9-20) mg/dL Creatinine (0.66-1.25) mg/dL Glucose (74-99) mg/dL POC Glucose (mg/dL) 153 H 183 H 160 H (70-110) mg/dL Calcium (8.4-10.2) mg/dL Magnesium (1.6-2.3) mg/dL Alkaline Phosphatase (38-126) U/L Total Protein (6.3-8.2) g/dL Albumin (3.5-5.0) g/dL Crossmatch 02/02/22 Range/Units 11:59 RBC (4.30-5.90) m/uL Hgb (13.0-17.5) gm/dL Hct (39.0-53.0) % RDW (11.5-15.5) % Plt Count (150-450) k/uL Lymphocytes # (1.0-4.8) k/uL Sodium (137-145) mmol/L Carbon Dioxide (22-30) mmol/L BUN (9-20) mg/dL Creatinine (0.66-1.25) mg/dL Glucose (74-99) mg/dL POC Glucose (mg/dL) 132 H (70-110) mg/dL Calcium (8.4-10.2) mg/dL Magnesium (1.6-2.3) mg/dL Alkaline Phosphatase (38-126) U/L Total Protein (6.3-8.2) g/dL Albumin (3.5-5.0) g/dL Crossmatch Microbiology - Last 24 Hours (Table) 01/31/22 14:03 Gram Stain - Preliminary Other - Other Tissue Culture - Preliminary 01/31/22 14:04 Gram Stain - Preliminary Other - Other Tissue Culture - Preliminary
--- NOTE | 2022-02-02 13:27 | P.PN ---
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 Patient is status post excision of the previous 23 mm Inspiris pericardial bioprosthesis and debridement of the annulus, aortic valve replacement using a 21 mm Inspiris pericardial bioprosthesis completed on 01/31/2022 On today's evaluation that is 01/31/2022 the patient continues to be afebrile, the patient is currently on the vent hemodynamically stable no other changes reported by the nursing staff Objective - Vital Signs Vital signs: Vital Signs Temp 35.5 F L 01/31/22 16:00 Pulse 80 01/31/22 17:15 Resp 22 01/31/22 17:15 BP 104/65 01/31/22 17:15 Pulse Ox 95 01/31/22 17:15 FiO2 50 01/31/22 17:00 Intake & Output 01/30/22 01/31/22 01/31/22 18:59 06:59 18:59 Intake Total 530 001 4235.578 Output Total 2875 2850 3310 Balance -1954 -2059 -1883.422 Weight 103.1 kg Intake: IV 560 790 400 0.9NS 360 390 Ampicillin 2,000 mg In 100 300 100 Sodium Chloride 0.9% 100 ml @ 200 mls/hr IVPB Q4HR [facility] Rx#:[id number] CARDIAC OUTPUT (0.9 20 Sodium Chloride) Calcium Gluconate in NaCl 100 1 gm In Saline 1 100ml. bag @ 100 mls/hr IVPB ONCE ONE Rx#:[id number] PRESSURE BAG (Sodium 27 Chloride 0.9) Sodium Chloride 0.9% 1, 150 000 ml @ 50 mls/hr IV . Q20H [facility] Rx#:[id number] cefTRIAXone 2 gm In 100 100 Sodium Chloride 0.9% 50 ml @ 100 mls/hr IVPB Q12HR [facility] Rx#:[id number] Intake, IV Titration 39.578 Amount Insulin Regular 100 unit 0.606 In Sodium Chloride 0.9% 100 ml @ Per Protocol IV .Q0M [facility] Rx#:[id number] propofoL 1,000 mg In 38.972 Empty Bag 1 bag @ Titrate IV .Q0M [facility] Rx#: [id number] Oral 360 Blood Product 986 Ffp 24 Pher Acda Unit 210 [id number] Ffp 24 Pher Acda Unit 205 [id number] Platelet Pheresis Pas 261 Psoralen Unit [id number] Rc As-1 Unit 310 [id number] Output: Chest Tube Drainage 500 Chest Tube Bilateral 340 Mediastinal Chest Tube Left Lateral 160 Chest Urine 2875 2850 810 Estimated Blood Loss 1999 Other: Voiding Method External Catheter External Catheter Indwelling Catheter # Bowel Movements 1 ABP, PAP, CO, CI - Last Documented Arterial Blood Pressure 117/48 Pulmonary Artery Pressure 26/19 Cardiac Output 7.1 Cardiac Index 3.2 - Exam GENERAL DESCRIPTION: Elderly male intubated on the vent. LUNGS: Unlabored breathing. Decreased breath sound at the base HEART: S1, S2, regular rate and rhythm. ABDOMEN: Soft, no tenderness , guarding or rigidity, no organomegaly EXTREMITIES: No edema of feet. - Labs CBC & Chem 7: 02/02/22 05:05 02/02/22 03:59 Labs: Abnormal Lab Results - Last 24 Hours (Table) 01/30/22 01/30/22 01/31/22 Range/Units 03:52 21:23 06:07 RBC 3.58 L (4.30-5.90) m/uL Hgb 11.1 L (13.0-17.5) gm/dL Hct 33.5 L (39.0-53.0) % Plt Count (150-450) k/uL Lymphocytes # (1.0-4.8) k/uL PT (9.0-12.0) sec INR (<1.2) APTT (22.0-30.0) sec ABG pH (7.35-7.45) ABG pCO2 (35-45) mmHg ABG pO2 (83-108) mmHg ABG Total CO2 (19-24) mmol/L ABG O2 Saturation (94-97) % ABG Hematocrit (34.0-46.0) % ABG Potassium (3.4-4.5) mmol/L ABG Ionized Calcium (4.5-5.3) mg/dL ABG Glucose (75-99) mg/dL ABG Lactic Acid (0.5-1.6) mmol/L Hemoglobin (13.0-17.5) gm/dL Sodium (137-145) mmol/L Chloride (98-107) mmol/L BUN (9-20) mg/dL Glucose (74-99) mg/dL POC Glucose (mg/dL) 166 H (70-110) mg/dL Calcium (8.4-10.2) mg/dL Magnesium (1.6-2.3) mg/dL Alkaline Phosphatase (38-126) U/L Total Protein (6.3-8.2) g/dL Albumin (3.5-5.0) g/dL Arterial Blood Potassium (3.4-4.5) mmol/L Arterial Blood Glucose (75-99) mg/dL Crossmatch See Detail 01/31/22 01/31/22 01/31/22 Range/Units 06:07 08:27 10:14 RBC (4.30-5.90) m/uL Hgb (13.0-17.5) gm/dL Hct (39.0-53.0) % Plt Count (150-450) k/uL Lymphocytes # (1.0-4.8) k/uL PT (9.0-12.0) sec INR (<1.2) APTT (22.0-30.0) sec ABG pH (7.35-7.45) ABG pCO2 (35-45) mmHg ABG pO2 252 H 187 H (83-108) mmHg ABG Total CO2 26 H 27 H (19-24) mmol/L ABG O2 Saturation 99.7 H 99.4 H (94-97) % ABG Hematocrit 30 L 29 L (34.0-46.0) % ABG Potassium (3.4-4.5) mmol/L ABG Ionized Calcium (4.5-5.3) mg/dL ABG Glucose 123 H 122 H (75-99) mg/dL ABG Lactic Acid (0.5-1.6) mmol/L Hemoglobin 9.8 L 9.4 L (13.0-17.5) gm/dL Sodium 136 L (137-145) mmol/L Chloride (98-107) mmol/L BUN 29 H (9-20) mg/dL Glucose 122 H (74-99) mg/dL POC Glucose (mg/dL) (70-110) mg/dL Calcium (8.4-10.2) mg/dL Magnesium (1.6-2.3) mg/dL Alkaline Phosphatase (38-126) U/L Total Protein (6.3-8.2) g/dL Albumin (3.5-5.0) g/dL Arterial Blood Potassium (3.4-4.5) mmol/L Arterial Blood Glucose 123 H 122 H (75-99) mg/dL Crossmatch 01/31/22 01/31/22 01/31/22 Range/Units 11:18 11:54 12:30 RBC (4.30-5.90) m/uL Hgb (13.0-17.5) gm/dL Hct (39.0-53.0) % Plt Count (150-450) k/uL Lymphocytes # (1.0-4.8) k/uL PT (9.0-12.0) sec INR (<1.2) APTT (22.0-30.0) sec ABG pH (7.35-7.45) ABG pCO2 (35-45) mmHg ABG pO2 282 H 392 H 287 H (83-108) mmHg ABG Total CO2 26 H 25 H (19-24) mmol/L ABG O2 Saturation 99.8 H 100.0 H 99.5 H (94-97) % ABG Hematocrit 22 L 25 L 23 L (34.0-46.0) % ABG Potassium 5.1 H 4.8 H (3.4-4.5) mmol/L ABG Ionized Calcium 4.4 L 4.2 L 4.3 L (4.5-5.3) mg/dL ABG Glucose 128 H 160 H 170 H (75-99) mg/dL ABG Lactic Acid (0.5-1.6) mmol/L Hemoglobin 7.1 L 8.1 L 7.4 L (13.0-17.5) gm/dL Sodium (137-145) mmol/L Chloride (98-107) mmol/L BUN (9-20) mg/dL Glucose (74-99) mg/dL POC Glucose (mg/dL) (70-110) mg/dL Calcium (8.4-10.2) mg/dL Magnesium (1.6-2.3) mg/dL Alkaline Phosphatase (38-126) U/L Total Protein (6.3-8.2) g/dL Albumin (3.5-5.0) g/dL Arterial Blood Potassium 5.1 H 4.8 H (3.4-4.5) mmol/L Arterial Blood Glucose 128 H 160 H 170 H (75-99) mg/dL Crossmatch 01/31/22 01/31/22 01/31/22 Range/Units 13:03 14:02 14:59 RBC (4.30-5.90) m/uL Hgb (13.0-17.5) gm/dL Hct (39.0-53.0) % Plt Count (150-450) k/uL Lymphocytes # (1.0-4.8) k/uL PT (9.0-12.0) sec INR (<1.2) APTT (22.0-30.0) sec ABG pH 7.31 L 7.31 L (7.35-7.45) ABG pCO2 50 H (35-45) mmHg ABG pO2 307 H 67 L (83-108) mmHg ABG Total CO2 26 H (19-24) mmol/L ABG O2 Saturation 99.6 H 91.9 L (94-97) % ABG Hematocrit 22 L 27 L (34.0-46.0) % ABG Potassium (3.4-4.5) mmol/L ABG Ionized Calcium 4.1 L (4.5-5.3) mg/dL ABG Glucose 173 H 145 H (75-99) mg/dL ABG Lactic Acid 1.7 H (0.5-1.6) mmol/L Hemoglobin 7.2 L 8.8 L (13.0-17.5) gm/dL Sodium (137-145) mmol/L Chloride (98-107) mmol/L BUN (9-20) mg/dL Glucose (74-99) mg/dL POC Glucose (mg/dL) 141 H (70-110) mg/dL Calcium (8.4-10.2) mg/dL Magnesium (1.6-2.3) mg/dL Alkaline Phosphatase (38-126) U/L Total Protein (6.3-8.2) g/dL Albumin (3.5-5.0) g/dL Arterial Blood Potassium (3.4-4.5) mmol/L Arterial Blood Glucose 173 H 145 H (75-99) mg/dL Crossmatch 01/31/22 01/31/22 01/31/22 Range/Units 15:13 15:13 15:13 RBC 2.69 L (4.30-5.90) m/uL Hgb 8.4 L D (13.0-17.5) gm/dL Hct 25.2 L (39.0-53.0) % Plt Count 138 L (150-450) k/uL Lymphocytes # 0.5 L (1.0-4.8) k/uL PT 13.4 H (9.0-12.0) sec INR 1.3 H (<1.2) APTT 37.1 H (22.0-30.0) sec ABG pH (7.35-7.45) ABG pCO2 (35-45) mmHg ABG pO2 (83-108) mmHg ABG Total CO2 (19-24) mmol/L ABG O2 Saturation (94-97) % ABG Hematocrit (34.0-46.0) % ABG Potassium (3.4-4.5) mmol/L ABG Ionized Calcium (4.5-5.3) mg/dL ABG Glucose (75-99) mg/dL ABG Lactic Acid (0.5-1.6) mmol/L Hemoglobin (13.0-17.5) gm/dL Sodium (137-145) mmol/L Chloride 108 H (98-107) mmol/L BUN 23 H (9-20) mg/dL Glucose 132 H (74-99) mg/dL POC Glucose (mg/dL) (70-110) mg/dL Calcium 7.8 L (8.4-10.2) mg/dL Magnesium 2.8 H (1.6-2.3) mg/dL Alkaline Phosphatase 27 L (38-126) U/L Total Protein 4.2 L (6.3-8.2) g/dL Albumin 2.5 L (3.5-5.0) g/dL Arterial Blood Potassium (3.4-4.5) mmol/L Arterial Blood Glucose (75-99) mg/dL Crossmatch 01/31/22 01/31/22 01/31/22 Range/Units 15:16 16:09 17:14 RBC (4.30-5.90) m/uL Hgb (13.0-17.5) gm/dL Hct (39.0-53.0) % Plt Count (150-450) k/uL Lymphocytes # (1.0-4.8) k/uL PT (9.0-12.0) sec INR (<1.2) APTT (22.0-30.0) sec ABG pH 7.32 L (7.35-7.45) ABG pCO2 47 H (35-45) mmHg ABG pO2 220 H (83-108) mmHg ABG Total CO2 25 H (19-24) mmol/L ABG O2 Saturation 100.0 H (94-97) % ABG Hematocrit (34.0-46.0) % ABG Potassium (3.4-4.5) mmol/L ABG Ionized Calcium (4.5-5.3) mg/dL ABG Glucose (75-99) mg/dL ABG Lactic Acid (0.5-1.6) mmol/L Hemoglobin (13.0-17.5) gm/dL Sodium (137-145) mmol/L Chloride (98-107) mmol/L BUN (9-20) mg/dL Glucose (74-99) mg/dL POC Glucose (mg/dL) 134 H 134 H (70-110) mg/dL Calcium (8.4-10.2) mg/dL Magnesium (1.6-2.3) mg/dL Alkaline Phosphatase (38-126) U/L Total Protein (6.3-8.2) g/dL Albumin (3.5-5.0) g/dL Arterial Blood Potassium (3.4-4.5) mmol/L Arterial Blood Glucose (75-99) mg/dL Crossmatch Microbiology - Last 24 Hours (Table) 01/24/22 15:19 Blood Culture - Final Blood No Growth after 144 hours 01/24/22 15:19 Blood Culture - Final Blood No Growth after 144 hours Assessment and Plan (1) Endocarditis Current Visit: Yes Status: Acute Code(s): I38 - ENDOCARDITIS, VALVE UNSPECIFIED SNOMED Code(s): 05402726 Plan: 1-patient with Enterococcus faecalis bacteremia secondary to bioprosthetic aortic valve endocarditis now with development of complication with bradycardia arrhythmia concerning for aortic root abscess s/p temporary pacemaker placement And the patient is status postcardiac cath completed on 01/27/2022 in preparation for aortic valve surgery 2- patient is status post aortic valve replacement completed on 01/31/2022 culture is currently pending 3-patient to continue with ampicillin and Rocephin and monitor clinical course closely Time with Patient: Less than 30
--- NOTE | 2022-02-02 13:29 | P.PN ---
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 Patient is status post excision of the previous 23 mm Inspiris pericardial bioprosthesis and debridement of the annulus, aortic valve replacement using a 21 mm Inspiris pericardial bioprosthesis completed on 01/31/2022 On today's evaluation that is 02/01/2022 the patient remains to be afebrile, the patient has been extubated and is breathing comfortably on 2 L nasal cannula oxygen, patient says pain is currently controlled denies any nausea no vomiting no abdominal pain is mostly burning in the urinary tract and H[place]rove catheter Objective - Vital Signs Vital signs: Vital Signs Temp 97.7 F 02/01/22 20:00 Pulse 81 02/01/22 23:00 Resp 13 02/01/22 23:00 BP 126/70 02/01/22 18:00 Pulse Ox 97 02/01/22 23:00 FiO2 50 01/31/22 17:00 Intake & Output 02/01/22 02/01/22 02/02/22 06:59 18:59 06:59 Intake Total 4763.196 4289.902 331.561 Output Total 823 445 260 Balance 6264.125 1732.902 71.561 Weight 103.3 kg 103.3 kg Intake: IV 1438 431 160 ACETAMINOPHEN IV (For NPO 100 ) 1,000 mg In Empty Bag 1 bag @ 400 mls/hr IVPB Q6HR [facility] Rx#:[id number] Ampicillin 2,000 mg In 200 200 Sodium Chloride 0.9% 100 ml @ 200 mls/hr IVPB Q4HR [facility] Rx#:[id number] CARDIAC OUTPUT (0.9 330 50 Sodium Chloride) PRESSURE BAG (Sodium 108 81 30 Chloride 0.9) Sodium Chloride 0.9% 1, 600 50 80 000 ml @ 20 mls/hr IV . Q24H [facility] Rx#:[id number] cefTRIAXone 2 gm In 100 50 50 Sodium Chloride 0.9% 50 ml @ 100 mls/hr IVPB Q12HR [facility] Rx#:[id number] Intake, IV Titration 111.301 445.902 171.561 Amount Albumin Human 25% 50 ml 50 In Empty Bag 1 bag @ 50 mls/hr IVPB ONCE ONE Rx#: [id number] Ampicillin 2,000 mg In 100 100 Sodium Chloride 0.9% 100 ml @ 200 mls/hr IVPB Q4H [facility] Rx#:[id number] Clevidipine Butyrate 25 55.533 mg In Empty Bag 1 bag @ 1 MG/HR 2 mls/hr IV .Q24H [facility] Rx#:[id number] Insulin Regular 100 unit 55.768 75.902 51.561 In Sodium Chloride 0.9% 100 ml @ Per Protocol IV .Q0M [facility] Rx#:[id number] Sodium Chloride 0.9% 1, 220 20 000 ml @ 20 mls/hr IV . Q24H [facility] Rx#:[id number] Oral 300 580 Output: Chest Tube Drainage 250 170 20 Chest Tube Bilateral 170 50 10 Mediastinal Chest Tube Left Lateral 80 120 10 Chest Urine 573 275 240 Other: Voiding Method Indwelling Catheter Indwelling Catheter ABP, PAP, CO, CI - Last Documented Arterial Blood Pressure 110/44 Pulmonary Artery Pressure 36/15 Cardiac Output 5.5 Cardiac Index 2.5 - Exam GENERAL DESCRIPTION: Elderly male up in the chair in no distress LUNGS: Unlabored breathing. Decreased breath sound at the base HEART: S1, S2, regular rate and rhythm. ABDOMEN: Soft, no tenderness , guarding or rigidity, no organomegaly EXTREMITIES: No edema of feet. - Labs CBC & Chem 7: 02/02/22 05:05 02/02/22 03:59 Labs: Abnormal Lab Results - Last 24 Hours (Table) 01/30/22 02/01/22 02/01/22 Range/Units 03:52 00:23 00:58 RBC (4.30-5.90) m/uL Hgb (13.0-17.5) gm/dL Hct (39.0-53.0) % Lymphocytes # (1.0-4.8) k/uL Sodium (137-145) mmol/L Chloride (98-107) mmol/L BUN (9-20) mg/dL Glucose (74-99) mg/dL POC Glucose (mg/dL) 153 H 147 H (70-110) mg/dL Calcium (8.4-10.2) mg/dL Magnesium (1.6-2.3) mg/dL Alkaline Phosphatase (38-126) U/L Total Protein (6.3-8.2) g/dL Albumin (3.5-5.0) g/dL Crossmatch See Detail 02/01/22 02/01/22 02/01/22 Range/Units 02:05 03:01 03:55 RBC 2.38 L (4.30-5.90) m/uL Hgb 7.3 L (13.0-17.5) gm/dL Hct 22.1 L (39.0-53.0) % Lymphocytes # 0.5 L (1.0-4.8) k/uL Sodium (137-145) mmol/L Chloride (98-107) mmol/L BUN (9-20) mg/dL Glucose (74-99) mg/dL POC Glucose (mg/dL) 136 H 127 H (70-110) mg/dL Calcium (8.4-10.2) mg/dL Magnesium (1.6-2.3) mg/dL Alkaline Phosphatase (38-126) U/L Total Protein (6.3-8.2) g/dL Albumin (3.5-5.0) g/dL Crossmatch 02/01/22 02/01/22 02/01/22 Range/Units 03:55 03:55 05:03 RBC (4.30-5.90) m/uL Hgb (13.0-17.5) gm/dL Hct (39.0-53.0) % Lymphocytes # (1.0-4.8) k/uL Sodium 136 L (137-145) mmol/L Chloride 108 H (98-107) mmol/L BUN 28 H (9-20) mg/dL Glucose 110 H (74-99) mg/dL POC Glucose (mg/dL) 119 H 115 H (70-110) mg/dL Calcium 7.8 L (8.4-10.2) mg/dL Magnesium 2.6 H (1.6-2.3) mg/dL Alkaline Phosphatase 34 L (38-126) U/L Total Protein 4.2 L (6.3-8.2) g/dL Albumin 2.4 L (3.5-5.0) g/dL Crossmatch 02/01/22 02/01/22 02/01/22 Range/Units 06:02 09:05 10:04 RBC (4.30-5.90) m/uL Hgb (13.0-17.5) gm/dL Hct (39.0-53.0) % Lymphocytes # (1.0-4.8) k/uL Sodium (137-145) mmol/L Chloride (98-107) mmol/L BUN (9-20) mg/dL Glucose (74-99) mg/dL POC Glucose (mg/dL) 115 H 141 H 160 H (70-110) mg/dL Calcium (8.4-10.2) mg/dL Magnesium (1.6-2.3) mg/dL Alkaline Phosphatase (38-126) U/L Total Protein (6.3-8.2) g/dL Albumin (3.5-5.0) g/dL Crossmatch 02/01/22 02/01/22 02/01/22 Range/Units 11:12 12:13 13:11 RBC (4.30-5.90) m/uL Hgb (13.0-17.5) gm/dL Hct (39.0-53.0) % Lymphocytes # (1.0-4.8) k/uL Sodium (137-145) mmol/L Chloride (98-107) mmol/L BUN (9-20) mg/dL Glucose (74-99) mg/dL POC Glucose (mg/dL) 158 H 162 H 259 H (70-110) mg/dL Calcium (8.4-10.2) mg/dL Magnesium (1.6-2.3) mg/dL Alkaline Phosphatase (38-126) U/L Total Protein (6.3-8.2) g/dL Albumin (3.5-5.0) g/dL Crossmatch 02/01/22 02/01/22 02/01/22 Range/Units 14:14 15:15 16:18 RBC (4.30-5.90) m/uL Hgb (13.0-17.5) gm/dL Hct (39.0-53.0) % Lymphocytes # (1.0-4.8) k/uL Sodium (137-145) mmol/L Chloride (98-107) mmol/L BUN (9-20) mg/dL Glucose (74-99) mg/dL POC Glucose (mg/dL) 251 H 240 H 203 H (70-110) mg/dL Calcium (8.4-10.2) mg/dL Magnesium (1.6-2.3) mg/dL Alkaline Phosphatase (38-126) U/L Total Protein (6.3-8.2) g/dL Albumin (3.5-5.0) g/dL Crossmatch 02/01/22 02/01/22 02/01/22 Range/Units 17:49 19:00 19:01 RBC (4.30-5.90) m/uL Hgb (13.0-17.5) gm/dL Hct (39.0-53.0) % Lymphocytes # (1.0-4.8) k/uL Sodium (137-145) mmol/L Chloride (98-107) mmol/L BUN (9-20) mg/dL Glucose (74-99) mg/dL POC Glucose (mg/dL) 197 H 216 H (70-110) mg/dL Calcium (8.4-10.2) mg/dL Magnesium 2.7 H (1.6-2.3) mg/dL Alkaline Phosphatase (38-126) U/L Total Protein (6.3-8.2) g/dL Albumin (3.5-5.0) g/dL Crossmatch 02/01/22 02/01/22 02/01/22 Range/Units 20:12 21:01 21:54 RBC (4.30-5.90) m/uL Hgb (13.0-17.5) gm/dL Hct (39.0-53.0) % Lymphocytes # (1.0-4.8) k/uL Sodium (137-145) mmol/L Chloride (98-107) mmol/L BUN (9-20) mg/dL Glucose (74-99) mg/dL POC Glucose (mg/dL) 158 H 142 H 125 H (70-110) mg/dL Calcium (8.4-10.2) mg/dL Magnesium (1.6-2.3) mg/dL Alkaline Phosphatase (38-126) U/L Total Protein (6.3-8.2) g/dL Albumin (3.5-5.0) g/dL Crossmatch Microbiology - Last 24 Hours (Table) 01/31/22 14:04 Gram Stain - Preliminary Other - Other Tissue Culture - Preliminary 01/31/22 14:03 Tissue Culture - Preliminary Other - Other 01/31/22 14:03 Anaerobic Culture - Preliminary Other - Other 01/31/22 14:04 Anaerobic Culture - Preliminary Other - Other Assessment and Plan (1) Endocarditis Current Visit: Yes Status: Acute Code(s): I38 - ENDOCARDITIS, VALVE UNSPECIFIED SNOMED Code(s): 91294062 Plan: 1-patient with Enterococcus faecalis bacteremia secondary to bioprosthetic aortic valve endocarditis now with development of complication with bradycardia arrhythmia 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
--- NOTE | 2022-02-02 13:30 | P.PN ---
Subjective Progress Note Date: 02/02/22 Principal diagnosis: Endocarditis Patient is a 76-year old male with Enterococcus faecalis bacteremia secondary to bioprosthetic aortic valve endocarditis developing his rhythm abnormality concern for possible aortic root abscess for the patient was transferred to this facility, patient is status post temporary pacemaker placement by cardiology on 01/25/2022.Patient is status postcardiac cath completed on 01/27/2022 with evidence of moderate disease in mid RCA. Patient is status post excision of the previous 23 mm Inspiris pericardial bioprosthesis and debridement of the annulus, aortic valve replacement using a 21 mm Inspiris pericardial bioprosthesis completed on 01/31/2022 On today's evaluation that is 02/02/2022 the patient denies having any fever or chills, the patient is breathing comfortably on room air, patient ( pain is currently controlled, the patient denies any nausea no vomiting no abdominal pain, is feeling slightly better today Objective - Vital Signs Vital signs: Vital Signs Temp 98.5 F 02/02/22 11:23 Pulse 80 02/02/22 11:23 Resp 16 02/02/22 11:23 BP 145/50 02/02/22 11:23 Pulse Ox 95 02/02/22 11:23 FiO2 50 01/31/22 17:00 Intake & Output 02/01/22 02/02/22 02/02/22 18:59 06:59 18:59 Intake Total 1456.902 747.145 797.884 Output Total 445 470 160 Balance 1011.902 277.145 637.884 Weight 103.3 kg 105.9 kg Intake: IV 431 542 280 Ampicillin 100 100 Ampicillin 2,000 mg In 200 100 Sodium Chloride 0.9% 100 ml @ 200 mls/hr IVPB Q4HR [facility] Rx#:[id number] CARDIAC OUTPUT (0.9 50 Sodium Chloride) PRESSURE BAG (Sodium 81 72 30 Chloride 0.9) Sodium Chloride 0.9% 1, 50 220 100 000 ml @ 20 mls/hr IV . Q24H [facility] Rx#:[id number] cefTRIAXone 2 gm In 50 50 50 Sodium Chloride 0.9% 50 ml @ 100 mls/hr IVPB Q12HR [facility] Rx#:[id number] Intake, IV Titration 445.902 205.145 37.884 Amount Albumin Human 25% 50 ml 50 In Empty Bag 1 bag @ 50 mls/hr IVPB ONCE ONE Rx#: [id number] Ampicillin 2,000 mg In 100 100 Sodium Chloride 0.9% 100 ml @ 200 mls/hr IVPB Q4H [facility] Rx#:[id number] Insulin Regular 100 unit 75.902 85.145 37.884 In Sodium Chloride 0.9% 100 ml @ Per Protocol IV .Q0M [facility] Rx#:[id number] Sodium Chloride 0.9% 1, 220 20 000 ml @ 20 mls/hr IV . Q24H [facility] Rx#:[id number] Oral 580 120 Blood Product 310 Rc As-1 Unit 310 [id number] Other 50 Rc As-1 Unit 50 [id number] Output: Chest Tube Drainage 170 50 20 Chest Tube Bilateral 50 20 10 Mediastinal Chest Tube Left Lateral 120 30 10 Chest Urine 275 420 140 Other: Voiding Method Indwelling Catheter Indwelling Catheter Indwelling Catheter ABP, PAP, CO, CI - Last Documented Arterial Blood Pressure 124/48 Pulmonary Artery Pressure 36/15 Cardiac Output 5.5 Cardiac Index 2.5 - Exam GENERAL DESCRIPTION: Elderly male up in the chair in no distress LUNGS: Unlabored breathing. Decreased breath sound at the base HEART: S1, S2, regular rate and rhythm. ABDOMEN: Soft, no tenderness , guarding or rigidity, no organomegaly EXTREMITIES: No edema of feet. - Labs CBC & Chem 7: 02/02/22 05:05 02/02/22 03:59 Labs: Abnormal Lab Results - Last 24 Hours (Table) 01/30/22 02/01/22 02/01/22 Range/Units 03:52 12:13 13:11 RBC (4.30-5.90) m/uL Hgb (13.0-17.5) gm/dL Hct (39.0-53.0) % RDW (11.5-15.5) % Plt Count (150-450) k/uL Lymphocytes # (1.0-4.8) k/uL Sodium (137-145) mmol/L Carbon Dioxide (22-30) mmol/L BUN (9-20) mg/dL Creatinine (0.66-1.25) mg/dL Glucose (74-99) mg/dL POC Glucose (mg/dL) 162 H 259 H (70-110) mg/dL Calcium (8.4-10.2) mg/dL Magnesium (1.6-2.3) mg/dL Alkaline Phosphatase (38-126) U/L Total Protein (6.3-8.2) g/dL Albumin (3.5-5.0) g/dL Crossmatch See Detail 02/01/22 02/01/22 02/01/22 Range/Units 14:14 15:15 16:18 RBC (4.30-5.90) m/uL Hgb (13.0-17.5) gm/dL Hct (39.0-53.0) % RDW (11.5-15.5) % Plt Count (150-450) k/uL Lymphocytes # (1.0-4.8) k/uL Sodium (137-145) mmol/L Carbon Dioxide (22-30) mmol/L BUN (9-20) mg/dL Creatinine (0.66-1.25) mg/dL Glucose (74-99) mg/dL POC Glucose (mg/dL) 251 H 240 H 203 H (70-110) mg/dL Calcium (8.4-10.2) mg/dL Magnesium (1.6-2.3) mg/dL Alkaline Phosphatase (38-126) U/L Total Protein (6.3-8.2) g/dL Albumin (3.5-5.0) g/dL Crossmatch 02/01/22 02/01/22 02/01/22 Range/Units 17:49 19:00 19:01 RBC (4.30-5.90) m/uL Hgb (13.0-17.5) gm/dL Hct (39.0-53.0) % RDW (11.5-15.5) % Plt Count (150-450) k/uL Lymphocytes # (1.0-4.8) k/uL Sodium (137-145) mmol/L Carbon Dioxide (22-30) mmol/L BUN (9-20) mg/dL Creatinine (0.66-1.25) mg/dL Glucose (74-99) mg/dL POC Glucose (mg/dL) 197 H 216 H (70-110) mg/dL Calcium (8.4-10.2) mg/dL Magnesium 2.7 H (1.6-2.3) mg/dL Alkaline Phosphatase (38-126) U/L Total Protein (6.3-8.2) g/dL Albumin (3.5-5.0) g/dL Crossmatch 02/01/22 02/01/22 02/01/22 Range/Units 20:12 21:01 21:54 RBC (4.30-5.90) m/uL Hgb (13.0-17.5) gm/dL Hct (39.0-53.0) % RDW (11.5-15.5) % Plt Count (150-450) k/uL Lymphocytes # (1.0-4.8) k/uL Sodium (137-145) mmol/L Carbon Dioxide (22-30) mmol/L BUN (9-20) mg/dL Creatinine (0.66-1.25) mg/dL Glucose (74-99) mg/dL POC Glucose (mg/dL) 158 H 142 H 125 H (70-110) mg/dL Calcium (8.4-10.2) mg/dL Magnesium (1.6-2.3) mg/dL Alkaline Phosphatase (38-126) U/L Total Protein (6.3-8.2) g/dL Albumin (3.5-5.0) g/dL Crossmatch 02/02/22 02/02/22 02/02/22 Range/Units 00:09 01:20 02:30 RBC (4.30-5.90) m/uL Hgb (13.0-17.5) gm/dL Hct (39.0-53.0) % RDW (11.5-15.5) % Plt Count (150-450) k/uL Lymphocytes # (1.0-4.8) k/uL Sodium (137-145) mmol/L Carbon Dioxide (22-30) mmol/L BUN (9-20) mg/dL Creatinine (0.66-1.25) mg/dL Glucose (74-99) mg/dL POC Glucose (mg/dL) 116 H 163 H 151 H (70-110) mg/dL Calcium (8.4-10.2) mg/dL Magnesium (1.6-2.3) mg/dL Alkaline Phosphatase (38-126) U/L Total Protein (6.3-8.2) g/dL Albumin (3.5-5.0) g/dL Crossmatch 02/02/22 02/02/22 02/02/22 Range/Units 03:11 03:59 03:59 RBC 2.04 L (4.30-5.90) m/uL Hgb 6.3 L* (13.0-17.5) gm/dL Hct 19.4 L* (39.0-53.0) % RDW 16.3 H (11.5-15.5) % Plt Count 131 L (150-450) k/uL Lymphocytes # 0.6 L (1.0-4.8) k/uL Sodium 136 L (137-145) mmol/L Carbon Dioxide 20 L (22-30) mmol/L BUN 33 H (9-20) mg/dL Creatinine 1.46 H (0.66-1.25) mg/dL Glucose 113 H (74-99) mg/dL POC Glucose (mg/dL) 135 H (70-110) mg/dL Calcium 7.9 L (8.4-10.2) mg/dL Magnesium (1.6-2.3) mg/dL Alkaline Phosphatase 36 L (38-126) U/L Total Protein 4.7 L (6.3-8.2) g/dL Albumin 2.7 L (3.5-5.0) g/dL Crossmatch 02/02/22 02/02/22 02/02/22 Range/Units 03:59 05:05 06:32 RBC 2.07 L (4.30-5.90) m/uL Hgb 6.5 L* (13.0-17.5) gm/dL Hct 19.7 L* (39.0-53.0) % RDW 16.3 H (11.5-15.5) % Plt Count 127 L (150-450) k/uL Lymphocytes # 0.7 L (1.0-4.8) k/uL Sodium (137-145) mmol/L Carbon Dioxide (22-30) mmol/L BUN (9-20) mg/dL Creatinine (0.66-1.25) mg/dL Glucose (74-99) mg/dL POC Glucose (mg/dL) 122 H 120 H (70-110) mg/dL Calcium (8.4-10.2) mg/dL Magnesium (1.6-2.3) mg/dL Alkaline Phosphatase (38-126) U/L Total Protein (6.3-8.2) g/dL Albumin (3.5-5.0) g/dL Crossmatch 02/02/22 02/02/22 02/02/22 Range/Units 06:59 08:30 09:53 RBC (4.30-5.90) m/uL Hgb (13.0-17.5) gm/dL Hct (39.0-53.0) % RDW (11.5-15.5) % Plt Count (150-450) k/uL Lymphocytes # (1.0-4.8) k/uL Sodium (137-145) mmol/L Carbon Dioxide (22-30) mmol/L BUN (9-20) mg/dL Creatinine (0.66-1.25) mg/dL Glucose (74-99) mg/dL POC Glucose (mg/dL) 125 H 153 H 183 H (70-110) mg/dL Calcium (8.4-10.2) mg/dL Magnesium (1.6-2.3) mg/dL Alkaline Phosphatase (38-126) U/L Total Protein (6.3-8.2) g/dL Albumin (3.5-5.0) g/dL Crossmatch 02/02/22 Range/Units 11:18 RBC (4.30-5.90) m/uL Hgb (13.0-17.5) gm/dL Hct (39.0-53.0) % RDW (11.5-15.5) % Plt Count (150-450) k/uL Lymphocytes # (1.0-4.8) k/uL Sodium (137-145) mmol/L Carbon Dioxide (22-30) mmol/L BUN (9-20) mg/dL Creatinine (0.66-1.25) mg/dL Glucose (74-99) mg/dL POC Glucose (mg/dL) 160 H (70-110) mg/dL Calcium (8.4-10.2) mg/dL Magnesium (1.6-2.3) mg/dL Alkaline Phosphatase (38-126) U/L Total Protein (6.3-8.2) g/dL Albumin (3.5-5.0) g/dL Crossmatch Microbiology - Last 24 Hours (Table) 01/31/22 14:03 Gram Stain - Preliminary Other - Other Tissue Culture - Preliminary 01/31/22 14:04 Gram Stain - Preliminary Other - Other Tissue Culture - Preliminary Assessment and Plan (1) Endocarditis Current Visit: Yes Status: Acute Code(s): I38 - ENDOCARDITIS, VALVE UNSPECIFIED SNOMED Code(s): 65321473 Plan: 1-patient with Enterococcus faecalis bacteremia secondary to bioprosthetic aortic valve endocarditis now with development of complication with bradycardia arrhythmia concerning for aortic root abscess s/p temporary pacemaker placement And the patient is status postcardiac cath completed on 01/27/2022 in preparation for aortic valve surgery 2- patient is status post aortic valve replacement completed on 01/31/2022 culture is currently pending 3-patient condition remains to be stable and will continue treatment of ampicillin and Rocephin and monitor clinical course closely Time with Patient: Less than 30
[2022-02-02 13:41] LABS: Basophils % (A) 0 %; Eosinophils % (A) 1 %; HCT 21.9 % (39.0-53.0); HGB 7.1 gm/dL (13.0-17.5); Hypochromasia Slight; Lymphocytes # (A) 0.8 k/uL (1.0-4.8); Lymphocytes % (A) 11 %; MCH 30.8 pg (25.0-35.0); MCHC 32.5 g/dL (31.0-37.0); MCV 94.9 fL (80.0-100.0); Mean Platelet Volume 8.9; Monocytes # (A) 0.6 k/uL (0-1.0); Monocytes % (A) 8 %; Neutrophils # (A) 5.5 k/uL (1.3-7.7); Neutrophils % (A) 79 %; Platelet Count 151 k/uL (150-450); Poikilocytosis Slight; RBC 2.31 m/uL (4.30-5.90)
[2022-02-02] MEDS: SODIUM CHLORIDE 0.9% 1,000 ML IV SCH (15:11)
[2022-02-02 16:56] LABS: Glucose,Whole Blood 240 mg/dL (70-110)
[2022-02-02 19:58] LABS: Glucose,Whole Blood 252 mg/dL (70-110)
[2022-02-02] MEDS: INSULIN DETEMIR (LEVEMIR) 100 UNIT/ML SYR SQ SCH (20:31)
[2022-02-02] MEDS: SENNOSIDES-DOCUSATE SODIUM 1 EACH TAB PO SCH (20:32)
[2022-02-02] MEDS: BACLOFEN 10 MG TAB PO PRN (21:59)
[2022-02-03] MEDS: HEPARIN SODIUM,PORCINE/PF 5,000 UNIT/0.5 ML SYRINGE SQ SCH ×3 (00:01→16:07)
[2022-02-03] MEDS: HYDROcodone/APAP 10-325MG 1 EACH TAB PO PRN ×4 (00:02→20:46)
[2022-02-03] MEDS: AMPICILLIN 2,000 MG in SODIUM CHLORIDE 0.9% 100 ML IVPB SCH ×4 (03:49→20:49)
[2022-02-03] MEDS: BENZOCAINE/MENTHOL LOZENG 1 EACH LOZENGE MUCOUS MEM PRN ×3 (04:20→20:46)
[2022-02-03 04:40] LABS: Basophils % (A) 0 %; Eosinophils # (A) 0.1 k/uL (0-0.7); Eosinophils % (A) 1 %; HCT 20.6 % (39.0-53.0); Hypochromasia Slight; Lymphocytes # (A) 0.7 k/uL (1.0-4.8); Lymphocytes % (A) 10 %; MCH 30.8 pg (25.0-35.0); MCHC 32.4 g/dL (31.0-37.0); MCV 94.9 fL (80.0-100.0); Mean Platelet Volume 9.5; Monocytes # (A) 0.4 k/uL (0-1.0); Monocytes % (A) 6 %; Neutrophils # (A) 5.5 k/uL (1.3-7.7); Neutrophils % (A) 81 %; Platelet Count 136 k/uL (150-450); Poikilocytosis Slight; RBC 2.17 m/uL (4.30-5.90); WBC 6.8 k/uL (3.8-10.6)
[2022-02-03 04:57] LABS: Albumin 2.8 g/dL (3.5-5.0); Calcium 7.7 mg/dL (8.4-10.2); Total Bilirubin 0.3 mg/dL (0.2-1.3); Total Protein 4.9 g/dL (6.3-8.2)
[2022-02-03 05:00] LABS: HGB 6.7 gm/dL (13.0-17.5)
[2022-02-03 06:34] LABS: Glucose,Whole Blood 141 mg/dL (70-110)
--- NOTE | 2022-02-03 07:00 | XR ---
EXAMINATION TYPE: XR chest 1V portable DATE OF EXAM: 02/03/2022 COMPARISON: 02/02/2022 HISTORY: Follow-up post cardiac surgery TECHNIQUE: Single frontal view of the chest is obtained. FINDINGS: There are postsurgical changes of cardiac surgery. There has been interval removal of a ri ght-sided chest tube. There is no pneumothorax. The lungs are clear. The pulmonary vasculature is not congested. The heart size is stable. The osseou s structures are intact. IMPRESSION: No acute cardiopulmonary disease. No pneumothorax following right-sided chest tube remov al.
[2022-02-03] MEDS: IPRATROPIUM-ALBUTEROL 3 ML NEB INHALATION SCH ×4 (07:04→19:03)
[2022-02-03] MEDS: SYMBICORT 160-4.5 MCG INHALER INHALATION SCH ×2 (07:05→19:03)
[2022-02-03] MEDS: INSULIN ASPART (NovoLOG) 100 UNIT/ML VIAL SQ SCH ×7 (07:13→20:47)
--- NOTE | 2022-02-03 07:18 | P.PN ---
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 History of severe aortic valve stenosis status post aortic valve replacement with a 23 mm Inspiris bioprosthetic aortic valve in November 2017, CAD with mid RCA stenosis 50% and previous PCI in 2018, hypertension, hyperlipidemia, insulin-dependent diabetes mellitus type 2, obesity, obstructive sleep apnea without CPAP use, moderate COPD, asthma, previous tobacco dependence, benign prostatic hypertrophy, UTIs with pseudomonas in 01/2020, gout, bilateral internal carotid stenosis 50-70% POD #3 redo sternotomy, excision of the previous 23 mm Inspiris pericardial bioprosthesis and debridement of the annulus, aortic valve replacement using a 21 mm Inspiris pericardial bioprosthesis Postoperative acute blood loss anemia, expected given hemodilution and cardiopulmonary bypass pump The patient was seen and examined sitting up in a recliner in the intensive care unit in no acute distress. He remains AV paced at 80 bpm, underlying rhythm junctional in the low 50s, hemodynamically stable on no inotropes or pressors. He does complain of postoperative pain but slightly better since chest tubes removed, denies shortness of breath, his only real complaint at this time is congestion in his throat. Right internal jugular Cordis, right radial arterial line remain present. Hemoglobin this morning 6.7, was 6.5 yesterday, received 1 unit packed red blood cells yesterday with hemoglobin 7.1 afterwards, currently hemodynamically stable with no evidence of active bleeding. Patient needs lots of encouragement for any activity. 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 No other new concerns. Objective - Vital Signs Vital signs: Vital Signs Temp 99.0 F 02/03/22 04:00 Pulse 81 02/03/22 04:00 Resp 15 02/03/22 04:00 BP 145/50 02/02/22 11:23 Pulse Ox 94 L 02/03/22 04:00 FiO2 50 01/31/22 17:00 Intake & Output 02/02/22 02/03/22 02/03/22 18:59 06:59 18:59 Intake Total 1883.667 2879 Output Total 380 430 Balance 2314.811 3939 Weight 103.7 kg Intake: IV 462 410 Ampicillin 100 Ampicillin 2,000 mg In 100 Sodium Chloride 0.9% 100 ml @ 200 mls/hr IVPB Q4HR [facility] Rx#:[id number] PRESSURE BAG (Sodium 72 60 Chloride 0.9) Sodium Chloride 0.9% 1, 240 200 000 ml @ 20 mls/hr IV . Q24H [facility] Rx#:[id number] cefTRIAXone 2 gm In 50 50 Sodium Chloride 0.9% 50 ml @ 100 mls/hr IVPB Q12HR [facility] Rx#:[id number] Intake, IV Titration 137.884 Amount Ampicillin 2,000 mg In 100 Sodium Chloride 0.9% 100 ml @ 200 mls/hr IVPB Q6H [facility] Rx#:[id number] Insulin Regular 100 unit 37.884 In Sodium Chloride 0.9% 100 ml @ Per Protocol IV .Q0M [facility] Rx#:[id number] Oral 480 1720 Blood Product 310 Rc As-1 Unit 310 [id number] Other 50 Rc As-1 Unit 50 [id number] Output: Chest Tube Drainage 20 Chest Tube Bilateral 10 Mediastinal Chest Tube Left Lateral 10 Chest Urine 360 430 Other: Voiding Method Indwelling Catheter Indwelling Catheter ABP, PAP, CO, CI - Last Documented Arterial Blood Pressure 145/43 Pulmonary Artery Pressure 36/15 Cardiac Output 5.5 Cardiac Index 2.5 - Exam CONSTITUTIONAL: Appears comfortable, cooperative, no acute distress RESPIRATORY: Lungs sounds diminished bilaterally. Respirations even, nonlabored. Currently on room air with oxygen saturation 94%. Able to achieve 1250 mL on incentive spirometry. Strong cough. CARDIOVASCULAR: S1, S2 present. Regular rate and rhythm, 100% AV paced on telemetry at 80 bpm, underlying rhythm junctional in the low 50s. Sternum stable. Palpable peripheral pulses bilaterally. Trace generalized edema present. No calf pain or tenderness noted. Heart hugger in place with patient demonstrating appropriate use. Antiembolism stockings, SCDs present. GASTROINTESTINAL: Abdomen soft, nontender, slightly distended, tympanic sounds to percussion. Active bowel sounds present 4 quadrants. Tolerating minimal diet. Positive flatus GENITOURINARY: Hargrove present draining clear, yellow urine. Output overnight 25-70 mL per hour, 790 mL in the last 24 hours INTEGUMENTARY: Skin is warm and dry with evidence of good perfusion. Anterior chest incision well approximated and covered with dry intact dressing. NEUROLOGIC: Cranial nerves II through XII intact MUSKULOSKELETAL: Able to move all extremities, strength equal bilaterally PSYCHIATRIC: Alert and oriented to person place and time, appropriate affect, intact judgment and insight INVASIVE LINES AND TUBES: A/V epicardial pacemaker wires present, connected to generator, DDD mode with rate 80 bpm Right internal jugular Cordis, right radial arterial line present. - Allied health notes Allied health notes reviewed: nursing - Labs CBC & Chem 7: 02/03/22 04:25 02/03/22 04:25 Labs: Abnormal Lab Results - Last 24 Hours (Table) 01/30/22 02/02/22 02/02/22 Range/Units 03:52 05:05 08:30 RBC (4.30-5.90) m/uL Hgb (13.0-17.5) gm/dL Hct (39.0-53.0) % RDW (11.5-15.5) % Plt Count (150-450) k/uL Lymphocytes # (1.0-4.8) k/uL Sodium (137-145) mmol/L Carbon Dioxide (22-30) mmol/L BUN (9-20) mg/dL Creatinine (0.66-1.25) mg/dL Glucose (74-99) mg/dL POC Glucose (mg/dL) 153 H (70-110) mg/dL Hemoglobin A1c 7.2 H (0.0-6.0) % Calcium (8.4-10.2) mg/dL Total Protein (6.3-8.2) g/dL Albumin (3.5-5.0) g/dL Crossmatch See Detail 02/02/22 02/02/22 02/02/22 Range/Units 09:53 11:18 11:59 RBC (4.30-5.90) m/uL Hgb (13.0-17.5) gm/dL Hct (39.0-53.0) % RDW (11.5-15.5) % Plt Count (150-450) k/uL Lymphocytes # (1.0-4.8) k/uL Sodium (137-145) mmol/L Carbon Dioxide (22-30) mmol/L BUN (9-20) mg/dL Creatinine (0.66-1.25) mg/dL Glucose (74-99) mg/dL POC Glucose (mg/dL) 183 H 160 H 132 H (70-110) mg/dL Hemoglobin A1c (0.0-6.0) % Calcium (8.4-10.2) mg/dL Total Protein (6.3-8.2) g/dL Albumin (3.5-5.0) g/dL Crossmatch 02/02/22 02/02/22 02/02/22 Range/Units 13:00 16:45 19:57 RBC 2.31 L (4.30-5.90) m/uL Hgb 7.1 L (13.0-17.5) gm/dL Hct 21.9 L (39.0-53.0) % RDW 16.0 H (11.5-15.5) % Plt Count (150-450) k/uL Lymphocytes # 0.8 L (1.0-4.8) k/uL Sodium (137-145) mmol/L Carbon Dioxide (22-30) mmol/L BUN (9-20) mg/dL Creatinine (0.66-1.25) mg/dL Glucose (74-99) mg/dL POC Glucose (mg/dL) 240 H 252 H (70-110) mg/dL Hemoglobin A1c (0.0-6.0) % Calcium (8.4-10.2) mg/dL Total Protein (6.3-8.2) g/dL Albumin (3.5-5.0) g/dL Crossmatch 02/03/22 02/03/22 02/03/22 Range/Units 04:25 04:25 06:33 RBC 2.17 L (4.30-5.90) m/uL Hgb 6.7 L* (13.0-17.5) gm/dL Hct 20.6 L (39.0-53.0) % RDW 16.0 H (11.5-15.5) % Plt Count 136 L (150-450) k/uL Lymphocytes # 0.7 L (1.0-4.8) k/uL Sodium 131 L (137-145) mmol/L Carbon Dioxide 20 L (22-30) mmol/L BUN 31 H (9-20) mg/dL Creatinine 1.41 H (0.66-1.25) mg/dL Glucose 131 H (74-99) mg/dL POC Glucose (mg/dL) 141 H (70-110) mg/dL Hemoglobin A1c (0.0-6.0) % Calcium 7.7 L (8.4-10.2) mg/dL Total Protein 4.9 L (6.3-8.2) g/dL Albumin 2.8 L (3.5-5.0) g/dL Crossmatch Microbiology - Last 24 Hours (Table) 01/31/22 14:04 Anaerobic Culture - Preliminary Other - Other 01/31/22 14:03 Gram Stain - Preliminary Other - Other Tissue Culture - Preliminary - Imaging and Cardiology Chest x-ray: image reviewed Assessment and Plan Assessment: 1. 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 Bacteremia with enterococcus faecalis, blood cultures currently negative to date 3. Moderate mitral valve regurgitation 4. Altered mental status present on admission, resolved 5. History of severe aortic valve stenosis status post aortic valve replacement with a 23 mm Inspiris bioprosthetic aortic valve in November 2017 6. CAD with mid RCA stenosis 50% and previous PCI in 2018 7. Hypertension 8. Hyperlipidemia, treated, cholesterol 86, LDL 39 9. Insulin-dependent diabetes mellitus type 2, preoperative hemoglobin A1c 7.8% 10. Obesity 11. Obstructive sleep apnea without CPAP use 12. Moderate COPD, FEV1 59% of predicted 13. Asthma 14. Previous tobacco dependence 15. Benign prostatic hypertrophy, currently on Flomax, Cardura, Proscar 16. UTIs with pseudomonas in 01/2020 17. Gout 18. Bilateral internal carotid stenosis 50-70% 19. Postoperative acute blood loss anemia, expected given hemodilution and cardiopulmonary bypass pump Plan: 1. Continue to maximize medical therapy with aspirin, statin, Plavix, hydralazine. Beta erasto remains on hold and is contraindicated at this time due to heart block. 2. Encourage use of his incentive spirometry 10 times every hour while awake. Bronchodilators per pulmonology 3. Increase activity, ambulate as tolerated. PT/OT/cardiac rehab following. Patient needs lots of encouragement 4. Will monitor daily labs and x-rays. Electrolyte replacement per protocol. Will give 1 unit PRBCs followed by 20 mg IV lasix 5. Continue ampicillin and Rocephin per infectious disease recommendations. 6. GI and DVT prophylaxis 7. Pain control current medication regimen. 8. Insulin management per primary care service 9. Patient will likely need permanent pacemaker placement. Would prefer 2-3 days of continued IV antibiotics prior to insertion. Dr. Scruggs updated. In the meantime, continue AV pacing with epicardial leads 10. Will make NPO after midnight in case Dr. Scruggs is able to place PPM iain rrow 11. Continue cordis for another 24 hours to monitor CVP 12. Continue Hargrove catheter for another 24 hours 13. Will add melatonin for sleep. Will add MiraLAX daily for bowel movement 14. Strict accurate intake and output. Daily weights 15. More recommendations as patient progresses
[2022-02-03] MEDS: FERROUS SULFATE 325 MG TAB PO SCH ×2 (08:13→17:00)
[2022-02-03] MEDS: ATORVASTATIN 40 MG TAB PO SCH (08:13)
[2022-02-03] MEDS: hydrALAZINE HCL 25 MG TAB PO SCH ×3 (08:13→20:46)
[2022-02-03] MEDS: TAMSULOSIN 0.4 MG CAP.ER.24H PO SCH (08:13)
[2022-02-03] MEDS: PANTOPRAZOLE 40 MG TABLET PO SCH (08:13)
[2022-02-03] MEDS: DOXAZOSIN 4 MG TAB PO SCH ×2 (08:13→20:49)
[2022-02-03] MEDS: MONTELUKAST 10 MG TAB PO SCH (08:13)
[2022-02-03] MEDS: allopurinoL 100 MG TAB PO SCH (08:13)
[2022-02-03] MEDS: ASPIRIN 325 MG TAB PO SCH (08:13)
[2022-02-03] MEDS: ASCORBIC ACID 500 MG TAB PO SCH ×2 (08:13→17:00)
[2022-02-03] MEDS: CLOTRIMAZOLE 1% CREAM 30 GM TUBE TOPICAL SCH ×2 (08:14→20:48)
[2022-02-03] MEDS: FINASTERIDE 5 MG TAB PO SCH (08:14)
--- NOTE | 2022-02-03 08:56 | P.PN ---
Subjective Progress Note Date: 02/03/22 Principal diagnosis: Endocarditis. Patient was reevaluated today on 01/25/22 patient remains in the ICU, remains on broad-spectrum antibiotics, he is hemodynamically stable, not in any form of distress, not requiring any pressors or any inotropes. Remains on ampicillin and Rocephin as recommended by infectious disease for his Enterococcus faecalis endocarditis. His labs today are basically unremarkable. Patient is being considered for surgical intervention by cardiothoracic surgery. Labs today were basically unremarkable including relatively normal CBC and normal basic metabolic profile Reevaluated today on 01/26/22, patient remains in the ICU, has been seen by many consultants, patient is to be seen by thoracic surgery today, apparently cardiology declined repeating is REESE, and felt very confident that the patient has endocarditis, and no need to repeat his REESE. Patient is being considered for transfer to another tertiary care center but he is yet to be seen by cardiothoracic surgery. In the meantime the patient seems to be hemodynamically stable, he is on room air, not in any distress. Reevaluated today on 01/27/22, patient is in the ICU, scheduled to undergo cardiac catheterization today. Patient is being worked up and possibly to undergo redo aortic valve replacement because of the endocarditis and he had evidence of new AV block. Today the patient will likely have placement of a temporary pacemaker since his previous temporary pacemaker is nonfunctional. Patient denies any pulmonary symptoms. No cough no wheezing no shortness of breath. Progress note dated 01/28/2022. This is a 76-year-old male who was admitted on January 24, with aortic valve endocarditis, secondary to enterococcus faecalis. The patient remains on antibiotics in the form of ampicillin and Rocephin. The patient is not receiving any supplemental oxygen. The patient is getting saline fluid, at 30 mL an hour. The patient may end up going to the operating room tomorrow for aortic valve replacement. The surgeon has not made up his mind as yet. He had a previous aortic valve replacement 4 years ago. Lab data includes a white count 6.4, hemoglobin 11.5, hematocrit 35.1, and normal platelet count. Electrolyte profile is completely normal. Calcium is 8.2. Blood cultures here are thus far negative. Progress note dated 01/29/2022. 76-year-old male admitted on January 24, with aortic valve endocarditis, secondary to Enterococcus faecalis. The patient remains on antibiotics in the form of both ampicillin and Rocephin. He is not receiving any supplemental oxygen. The patient is getting saline at 30 mL an hour. He has not yet been seen by cardiothoracic surgery. At the current time, there is no plans for aortic valve replacement. He had a previous aortic valve replacement, 4 years ago. Current labs show white count of 5.3, hemoglobin 11.7, hematocrit 35.8, and a normal platelet count. Sodium, potassium, chloride, CO2, BUN, and creatin ine are all normal. Progress note dated 01/30/2022. 76-year-old male, admitted on January 24, with prostatic valve endocarditis, involving the aortic valve. The patient's bacteria was Enterococcus faecalis. He apparently is being readied for possible aortic valve replacement, on January 31. He is on room air. He is getting saline at 30 mL an hour. He is resting comfortably without complaints. Laboratory data today includes a white count 6.1, hemoglobin 11.7, hematocrit 35.3, platelet count 237,000. Sodium 137, potassium 4.3, chlorides 105, CO2 25, BUN 16, creatinine 1.08. Progress note dated 01/31/2022. 76-year-old male, valve replacement today. He has prosthetic valve endocardi tis, secondary to Enterococcus faecalis. The patient had an uneventful night. He was on room air before going to the operating room, and receiving saline at 30 mL an hour. Labs today include a white count 5, hemoglobin 11.1, hematocrit 33.5, and a normal platelet count. Sodium is 136, potassium 4.4, chlorides 103, CO2 24, BUN 29, creatinine 1.05. Progress note dated 02/01/2022. 76-year-old male, status post aortic valve replacement, for an infected prosthetic valve, secondary to Enterococcus faecalis. Today's postop day #1. The patient was extubated in a timely fashion. Currently, cardiac output is 8, with an index of 3.6. 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 His left chest tube in place. Insulin drip is on hold. He is getting saline at 50 mL an hour. He is on O2 at 2 L. White count 6.3, hematocrit 7.3, hematocrit 22.1, platelet count 250,000. Sodium 136, potassium 4.7, chlorides 108, CO2 22, BUN 28, and creatinine 1.17. Chest x-ray shows postoperative changes, with bilateral lower lobe atelectasis or infiltrates, and small effusions. Progress note dated 02/02/2022. This is a 76-year-old male, who is postop day #2, status post aortic valve replacement. The patient had an infected prosthetic valve, secondary to En terococcus faecalis, that had been inserted for years ago for aortic stenosis. Currently, the patient is on O2 at 2 L. Is getting saline at 20 mL an hour. He's getting an insulin drip at 8.5 units an hour. Chest tubes be taken out today. He may need a pacemaker early next week. He'll get 1 unit of packed red blood cells today. White count 5.8, hemoglobin 6.5, hematocrit 19.7, and platelet count 227,000. Blood glucose 183. Additional lab work is pending. Chest x-ray shows some bibasilar atelectasis. The patient was seen and examined this morning on postop day #3. He is sitting up in a recliner eating breakfast in no acute distress. He is currently on room air and maintaining oxygen saturation in the mid 90s, able to achieve 1250 mL on his incentive spirometry. Insulin drip has been discontinued, he is getting normal saline and 20 mL/h. He received one unit packed red blood cells yesterday, hemoglobin 6.7 this morning but hemodynamically stable. CBC 6.8, platelet count 1 36,000, BUN 31, creatinine 1.41, blood sugars were in the 200s yesterday, currently running 131-141. Chest x-ray demonstrates no acute cardiopulmonary process, lungs are clear, no pulmonary vascular congestion, no pneumothorax after removal of both chest tubes yesterday. Patient states postsurgical pain is mostly controlled, requires a lot of motivation to participate in care. Objective - Vital Signs Vital signs: Vital Signs Temp 98.1 F 02/03/22 08:00 Pulse 81 02/03/22 08:00 Resp 16 02/03/22 08:00 BP 145/50 02/02/22 11:23 Pulse Ox 95 02/03/22 08:00 FiO2 50 01/31/22 17:00 Intake & Output 02/02/22 02/03/22 02/03/22 18:59 06:59 18:59 Intake Total 4131.130 3877 152 Output Total 380 505 65 Balance 1494.697 4060 87 Weight 103.7 kg Intake: IV 462 462 52 Ampicillin 100 Ampicillin 2,000 mg In 100 Sodium Chloride 0.9% 100 ml @ 200 mls/hr IVPB Q4HR [facility] Rx#:[id number] PRESSURE BAG (Sodium 72 72 12 Chloride 0.9) Sodium Chloride 0.9% 1, 240 240 40 000 ml @ 20 mls/hr IV . Q24H [facility] Rx#:[id number] cefTRIAXone 2 gm In 50 50 Sodium Chloride 0.9% 50 ml @ 100 mls/hr IVPB Q12HR [facility] Rx#:[id number] Intake, IV Titration 137.884 100 100 Amount Ampicillin 2,000 mg In 100 100 100 Sodium Chloride 0.9% 100 ml @ 200 mls/hr IVPB Q6H [facility] Rx#:[id number] Insulin Regular 100 unit 37.884 In Sodium Chloride 0.9% 100 ml @ Per Protocol IV .Q0M [facility] Rx#:[id number] Oral 480 1870 Blood Product 310 Rc As-1 Unit 310 [id number] Other 50 Rc As-1 Unit 50 [id number] Output: Chest Tube Drainage 20 Chest Tube Bilateral 10 Mediastinal Chest Tube Left Lateral 10 Chest Urine 360 505 65 Other: Voiding Method Indwelling Catheter Indwelling Catheter ABP, PAP, CO, CI - Last Documented Arterial Blood Pressure 169/53 Pulmonary Artery Pressure 36/15 Cardiac Output 5.5 Cardiac Index 2.5 - Exam No acute distress, oriented 3. Currently on room air HEENT examination is grossly unremarkable. Neck supple. Full range of motion. No adenopathy thyromegaly or neck vein distention. Cardiovascular examination reveals regular rhythm rate. S1-S2 normal. No S3 or S4. Heart rate 80 bpm. Lungs reveal clear breath sounds. Breath sounds are equal bilaterally. No adventitious lung sounds including wheezes rhonchi or crackles. Saturations on room air are 94 %. Abdomen soft bowel sounds are heard. No masses or tenderness. Extremities are intact. No cyanosis clubbing or edema. Skin is without rash or lesion. Neurologic examination is brief but nonfocal. - Labs CBC & Chem 7: 02/03/22 04:25 10/09/22 04:25 Labs: Abnormal Lab Results - Last 24 Hours (Table) 01/30/22 02/02/22 02/02/22 Range/Units 03:52 05:05 09:53 RBC (4.30-5.90) m/uL Hgb (13.0-17.5) gm/dL Hct (39.0-53.0) % RDW (11.5-15.5) % Plt Count (150-450) k/uL Lymphocytes # (1.0-4.8) k/uL Sodium (137-145) mmol/L Carbon Dioxide (22-30) mmol/L BUN (9-20) mg/dL Creatinine (0.66-1.25) mg/dL Glucose (74-99) mg/dL POC Glucose (mg/dL) 183 H (70-110) mg/dL Hemoglobin A1c 7.2 H (0.0-6.0) % Calcium (8.4-10.2) mg/dL Total Protein (6.3-8.2) g/dL Albumin (3.5-5.0) g/dL Crossmatch See Detail 02/02/22 02/02/22 02/02/22 Range/Units 11:18 11:59 13:00 RBC 2.31 L (4.30-5.90) m/uL Hgb 7.1 L (13.0-17.5) gm/dL Hct 21.9 L (39.0-53.0) % RDW 16.0 H (11.5-15.5) % Plt Count (150-450) k/uL Lymphocytes # 0.8 L (1.0-4.8) k/uL Sodium (137-145) mmol/L Carbon Dioxide (22-30) mmol/L BUN (9-20) mg/dL Creatinine (0.66-1.25) mg/dL Glucose (74-99) mg/dL POC Glucose (mg/dL) 160 H 132 H (70-110) mg/dL Hemoglobin A1c (0.0-6.0) % Calcium (8.4-10.2) mg/dL Total Protein (6.3-8.2) g/dL Albumin (3.5-5.0) g/dL Crossmatch 02/02/22 02/02/22 02/03/22 Range/Units 16:45 19:57 04:25 RBC 2.17 L (4.30-5.90) m/uL Hgb 6.7 L* (13.0-17.5) gm/dL Hct 20.6 L (39.0-53.0) % RDW 16.0 H (11.5-15.5) % Plt Count 136 L (150-450) k/uL Lymphocytes # 0.7 L (1.0-4.8) k/uL Sodium (137-145) mmol/L Carbon Dioxide (22-30) mmol/L BUN (9-20) mg/dL Creatinine (0.66-1.25) mg/dL Glucose (74-99) mg/dL POC Glucose (mg/dL) 240 H 252 H (70-110) mg/dL Hemoglobin A1c (0.0-6.0) % Calcium (8.4-10.2) mg/dL Total Protein (6.3-8.2) g/dL Albumin (3.5-5.0) g/dL Crossmatch 02/03/22 02/03/22 Range/Units 04:25 06:33 RBC (4.30-5.90) m/uL Hgb (13.0-17.5) gm/dL Hct (39.0-53.0) % RDW (11.5-15.5) % Plt Count (150-450) k/uL Lymphocytes # (1.0-4.8) k/uL Sodium 131 L (137-145) mmol/L Carbon Dioxide 20 L (22-30) mmol/L BUN 31 H (9-20) mg/dL Creatinine 1.41 H (0.66-1.25) mg/dL Glucose 131 H (74-99) mg/dL POC Glucose (mg/dL) 141 H (70-110) mg/dL Hemoglobin A1c (0.0-6.0) % Calcium 7.7 L (8.4-10.2) mg/dL Total Protein 4.9 L (6.3-8.2) g/dL Albumin 2.8 L (3.5-5.0) g/dL Crossmatch Microbiology - Last 24 Hours (Table) 01/31/22 14:04 Anaerobic Culture - Preliminary Other - Other 01/31/22 14:03 Gram Stain - Preliminary Other - Other Tissue Culture - Preliminary - Imaging and Cardiology Chest x-ray: report reviewed, image reviewed Assessment and Plan Assessment: Postoperative day #3, status post redo sternotomy, extraction of previous prosthetic aortic valve, and replacement with a 21 mm pericardial bioprosthesis aortic valve. Routine postoperative ventilator management, with timely extubation. Acute prosthetic aortic valve endocarditis, secondary to Enterococcus faecalis. Prior history of aortic valve replacement, 4 years ago for aortic stenosis. High-grade AV block, secondary to endocarditis. Acute encephalopathy, secondary to endocarditis and sepsis. History of COPD, stable. Essential hypertension. Type 2 diabetes mellitus. BPH. Seasonal ALLERGIC rhinitis. Plan: Plan dated 01/28/2022. The patient will be evaluated by the surgeon later today, and may end up going back to the operating room, for his aortic valve endocarditis. The patient's blood cultures at the outside hospital were positive for Enterococcus faecalis. Currently the cultures here are negative. The patient remains on ampicillin and Rocephin. We will continue to follow make recommendations along the way. Prog nosis is guarded. Labs, x-rays, and medications are all reviewed. Plan dated 01/29/2022. The patient is awaiting to see the surgeon. No decision has been made in regards to surgery. The patient remains on antibiotics. Cultures at this hospital have been negative. Labs, x-rays, and medications are reviewed. Prognosis is certainly guarded. Plan dated 01/30/2022. The patient apparently is going to have aortic valve replacement tomorrow. This is according to the nurse. The patient is stable. No hemodynamic or respiratory issues. Labs, x-rays, medications are reviewed. His respiratory status is certainly stable. We will continue to follow after the procedure. Plan dated 01/31/2022. The patient will have aortic valve replacement done today. Patient has been stable since being here in the intensive care unit. The patient remains on antibiotics. Culture data has been negative. Once he leaves the operating room, our goal will be to get him extubated as soon as possible. We'll recommend postextubation incentive spirometry, deep breathing, coughing, clearing of secretions. Plan dated 02/01/2022. The patient was extubated in a timely fashion. He is currently on 2 L of oxygen. The insulin drip is on hold. He is getting saline at 50 mL an hour. His cardiac Is 8 with an index of 3.6. He is currently pacemaker dependent, may require a permanent pacemaker, early next week. We will continue to follow make recommendations along the way. Labs, x-rays, and medications are reviewed. We recommend deep breathing, coughing, and clearing of secretions. We also recom mend hourly use of the incentive spirometer. Plan dated 02/02/2022. The patient remains on 2 L of oxygen. He is getting an insulin drip at 8.5 units an hour. He is on saline at 20 mL an hour. For a low hemoglobin, he'll get 1 unit of packed red blood cells. The patient may need a pacemaker next week. We encourage him to continue to deep breathe, cough, and clear secretions. We also recommend hourly use of the incentive spirometer. Labs, x- rays, and medications are all reviewed. Plan dated 02/03/2022 The patient is currently on room air and achieving 1250 mL on his incentive spirometry. He continues on normal saline and 20 mL per hour. Hopefully he will get pacemaker tomorrow. We will encourage to continue coughing, deep breathing, incentive spirometry use, increased activity as tolerated. Labs, x- rays, medications are reviewed. More recommendations forthcoming. I have personally seen and examined the patient, performed the documentation and the assessment and plan as written. Number of minutes spent on the visit: 20.
[2022-02-03] MEDS ORDERED: FUROSEMIDE 10 MG/ML 2 ML VIAL IV ONE (09:15)
[2022-02-03] MEDS: guaiFENesin 600 MG TABLET.ER PO SCH ×2 (09:26→20:45)
[2022-02-03] MEDS: polyethylene glycoL 3350 17 GM POWD.PACK PO SCH (09:26)
--- NOTE | 2022-02-03 09:55 | P.PN ---
Subjective Progress Note Date: 02/03/22 Principal diagnosis: Status post aortic valve replacement This is a 76-year-old gentleman who underwent an aortic valve replacement using a tissue valve for infective endocarditis. The patient was seen this morning. He remains in with dynamic the stable. Unfortunately he continues to use a pacemaker and his underlying rhythm is complete heart block. He is not on any vasopressors at this point. He is not on any AV zach erasto agents as well. He is on aspirin as well as a statin is on antibiotic. Dr. Scruggs in his primary executive administrator is aware of the case. The chest x-ray was reviewed. The hemoglobin is low at 6.5 but the patient is a stable. February 032021 The patient was seen this morning. He remained stable from the cardiac standpoint of view. His hemoglobin is low and it is below 7 and he is in process of receiving one unit of packed RBC. He continues to require pacing. Need to have a permanent pacemaker. I will contact Dr. Scruggs to see the timing of it. Otherwise a chest x-ray was reviewed and seems to be stable. Is not on any AV zach erasto agent. The dose of hydralazine was increased today for better blood pressure control Objective - Vital Signs Vital signs: Vital Signs Temp 98.1 F 02/03/22 08:00 Pulse 80 02/03/22 09:00 Resp 20 02/03/22 09:00 BP 145/50 02/02/22 11:23 Pulse Ox 95 02/03/22 09:00 FiO2 50 01/31/22 17:00 Intake & Output 02/02/22 02/03/22 02/03/22 18:59 06:59 18:59 Intake Total 9513.738 4583 468 Output Total 380 505 125 Balance 9459.487 3556 343 Weight 103.7 kg Intake: IV 462 462 128 Ampicillin 100 Ampicillin 2,000 mg In 100 Sodium Chloride 0.9% 100 ml @ 200 mls/hr IVPB Q4HR [facility] Rx#:[id number] PRESSURE BAG (Sodium 72 72 18 Chloride 0.9) Sodium Chloride 0.9% 1, 240 240 60 000 ml @ 20 mls/hr IV . Q24H [facility] Rx#:[id number] cefTRIAXone 2 gm In 50 50 50 Sodium Chloride 0.9% 50 ml @ 100 mls/hr IVPB Q12HR [facility] Rx#:[id number] Intake, IV Titration 137.884 100 100 Amount Ampicillin 2,000 mg In 100 100 100 Sodium Chloride 0.9% 100 ml @ 200 mls/hr IVPB Q6H [facility] Rx#:[id number] Insulin Regular 100 unit 37.884 In Sodium Chloride 0.9% 100 ml @ Per Protocol IV .Q0M [facility] Rx#:[id number] Oral 480 1870 240 Blood Product 310 Rc As-1 Unit 310 [id number] Other 50 Rc As-1 Unit 50 [id number] Output: Chest Tube Drainage 20 Chest Tube Bilateral 10 Mediastinal Chest Tube Left Lateral 10 Chest Urine 360 505 125 Other: Voiding Method Indwelling Catheter Indwelling Catheter Indwelling Catheter ABP, PAP, CO, CI - Last Documented Arterial Blood Pressure 156/54 Pulmonary Artery Pressure 36/15 Cardiac Output 5.5 Cardiac Index 2.5 - Constitutional General appearance: Present: no acute distress - Respiratory Respiratory: bilateral: diminished - Cardiovascular Rhythm: regular Abnormal Heart Sounds: Present: systolic murmur - Labs CBC & Chem 7: 02/03/22 04:25 02/03/22 04:25 Labs: Abnormal Lab Results - Last 24 Hours (Table) 01/30/22 02/02/22 02/02/22 Range/Units 03:52 05:05 09:53 RBC (4.30-5.90) m/uL Hgb (13.0-17.5) gm/dL Hct (39.0-53.0) % RDW (11.5-15.5) % Plt Count (150-450) k/uL Lymphocytes # (1.0-4.8) k/uL Sodium (137-145) mmol/L Carbon Dioxide (22-30) mmol/L BUN (9-20) mg/dL Creatinine (0.66-1.25) mg/dL Glucose (74-99) mg/dL POC Glucose (mg/dL) 183 H (70-110) mg/dL Hemoglobin A1c 7.2 H (0.0-6.0) % Calcium (8.4-10.2) mg/dL Total Protein (6.3-8.2) g/dL Albumin (3.5-5.0) g/dL Crossmatch See Detail 02/02/22 02/02/22 02/02/22 Range/Units 11:18 11:59 13:00 RBC 2.31 L (4.30-5.90) m/uL Hgb 7.1 L (13.0-17.5) gm/dL Hct 21.9 L (39.0-53.0) % RDW 16.0 H (11.5-15.5) % Plt Count (150-450) k/uL Lymphocytes # 0.8 L (1.0-4.8) k/uL Sodium (137-145) mmol/L Carbon Dioxide (22-30) mmol/L BUN (9-20) mg/dL Creatinine (0.66-1.25) mg/dL Glucose (74-99) mg/dL POC Glucose (mg/dL) 160 H 132 H (70-110) mg/dL Hemoglobin A1c (0.0-6.0) % Calcium (8.4-10.2) mg/dL Total Protein (6.3-8.2) g/dL Albumin (3.5-5.0) g/dL Crossmatch 02/02/22 02/02/22 02/03/22 Range/Units 16:45 19:57 04:25 RBC 2.17 L (4.30-5.90) m/uL Hgb 6.7 L* (13.0-17.5) gm/dL Hct 20.6 L (39.0-53.0) % RDW 16.0 H (11.5-15.5) % Plt Count 136 L (150-450) k/uL Lymphocytes # 0.7 L (1.0-4.8) k/uL Sodium (137-145) mmol/L Carbon Dioxide (22-30) mmol/L BUN (9-20) mg/dL Creatinine (0.66-1.25) mg/dL Glucose (74-99) mg/dL POC Glucose (mg/dL) 240 H 252 H (70-110) mg/dL Hemoglobin A1c (0.0-6.0) % Calcium (8.4-10.2) mg/dL Total Protein (6.3-8.2) g/dL Albumin (3.5-5.0) g/dL Crossmatch 02/03/22 02/03/22 Range/Units 04:25 06:33 RBC (4.30-5.90) m/uL Hgb (13.0-17.5) gm/dL Hct (39.0-53.0) % RDW (11.5-15.5) % Plt Count (150-450) k/uL Lymphocytes # (1.0-4.8) k/uL Sodium 131 L (137-145) mmol/L Carbon Dioxide 20 L (22-30) mmol/L BUN 31 H (9-20) mg/dL Creatinine 1.41 H (0.66-1.25) mg/dL Glucose 131 H (74-99) mg/dL POC Glucose (mg/dL) 141 H (70-110) mg/dL Hemoglobin A1c (0.0-6.0) % Calcium 7.7 L (8.4-10.2) mg/dL Total Protein 4.9 L (6.3-8.2) g/dL Albumin 2.8 L (3.5-5.0) g/dL Crossmatch Microbiology - Last 24 Hours (Table) 01/31/22 14:04 Anaerobic Culture - Preliminary Other - Other 01/31/22 14:03 Gram Stain - Preliminary Other - Other Tissue Culture - Preliminary Assessment and Plan Assessment: Assessment #1 status post aortic valve replacement #2 complete heart block #3 infected endocarditis #4 multiple comorbid conditions #5 anemia likely to be blood loss anemia Plan Continue monitor the hemoglobin Continue monitor the kidney function and electrolytes Avoid any AV zach erasto agents Permanent pacemaker to be done in the next 24-40
[2022-02-03 11:53] LABS: Glucose,Whole Blood 181 mg/dL (70-110)
[2022-02-03] MEDS: SODIUM CHLORIDE 0.9% 1,000 ML IV SCH (15:18)
[2022-02-03 16:56] LABS: Glucose,Whole Blood 203 mg/dL (70-110)
[2022-02-03 17:19] LABS: Anisocytosis Slight; Basophils % (A) 0 %; Eosinophils # (A) 0.1 k/uL (0-0.7); Eosinophils % (A) 2 %; HCT 23.5 % (39.0-53.0); HGB 7.9 gm/dL (13.0-17.5); Hypochromasia Slight; Lymphocytes # (A) 0.6 k/uL (1.0-4.8); Lymphocytes % (A) 9 %; MCH 30.7 pg (25.0-35.0); MCHC 33.4 g/dL (31.0-37.0); MCV 91.9 fL (80.0-100.0); Mean Platelet Volume 9.3; Monocytes # (A) 0.3 k/uL (0-1.0); Monocytes % (A) 4 %; Neutrophils # (A) 5.4 k/uL (1.3-7.7); Neutrophils % (A) 83 %; Platelet Count 141 k/uL (150-450); Poikilocytosis Slight; RBC 2.56 m/uL (4.30-5.90); RDW 16.1 % (11.5-15.5); WBC 6.5 k/uL (3.8-10.6)
[2022-02-03 20:35] LABS: Glucose,Whole Blood 183 mg/dL (70-110)
[2022-02-03] MEDS: BACLOFEN 10 MG TAB PO PRN (20:46)
[2022-02-03] MEDS: SENNOSIDES-DOCUSATE SODIUM 1 EACH TAB PO SCH (20:46)
[2022-02-03] MEDS: MELATONIN 3 MG TABLET PO PRN (20:47)
[2022-02-03] MEDS: INSULIN DETEMIR (LEVEMIR) 100 UNIT/ML SYR SQ SCH (20:47)
[2022-02-03] MEDS ORDERED: BENZOCAINE SPRAY 1 CAN MUCOUS MEM PRN (22:06)
[2022-02-04] MEDS: HEPARIN SODIUM,PORCINE/PF 5,000 UNIT/0.5 ML SYRINGE SQ SCH ×3 (00:57→17:07)
[2022-02-04] MEDS: BENZOCAINE/MENTHOL LOZENG 1 EACH LOZENGE MUCOUS MEM PRN ×2 (00:58→02:38)
[2022-02-04] MEDS: HYDROcodone/APAP 10-325MG 1 EACH TAB PO PRN (02:37)
[2022-02-04] MEDS: AMPICILLIN 2,000 MG in SODIUM CHLORIDE 0.9% 100 ML IVPB SCH ×5 (02:40→20:30)
[2022-02-04 05:05] LABS: HCT 22.6 % (39.0-53.0); HGB 7.8 gm/dL (13.0-17.5); Hypochromasia Slight; MCHC 34.3 g/dL (31.0-37.0); MCV 93.2 fL (80.0-100.0); Mean Platelet Volume 8.8; Platelet Count 140 k/uL (150-450); Poikilocytosis Slight; RBC 2.42 m/uL (4.30-5.90); RDW 15.8 % (11.5-15.5); WBC 6.2 k/uL (3.8-10.6)
[2022-02-04 05:12] LABS: Ionized Calcium 4.9 mg/dL (4.5-5.3)
[2022-02-04 05:25] LABS: Calcium 7.8 mg/dL (8.4-10.2); Magnesium 2.6 mg/dL (1.6-2.3); Potassium 4.1 mmol/L (3.5-5.1)
[2022-02-04] MEDS ORDERED: HYDROcodone/APAP 5-325MG 1 EACH TAB PO PRN (06:50)
[2022-02-04] MEDS: IPRATROPIUM-ALBUTEROL 3 ML NEB INHALATION SCH ×4 (07:16→19:10)
[2022-02-04] MEDS: ACETYLCYSTEINE 800 MG/4 ML VIAL INHALATION SCH ×4 (07:16→19:10)
[2022-02-04] MEDS: SYMBICORT 160-4.5 MCG INHALER INHALATION SCH ×2 (07:16→19:10)
[2022-02-04 07:17] LABS: Glucose,Whole Blood 130 mg/dL (70-110)
--- NOTE | 2022-02-04 07:50 | XR ---
EXAMINATION TYPE: XR chest 1V portable DATE OF EXAM: 02/04/2022 COMPARISON: Chest x-ray 02/03/2022 HISTORY: Status post cardiac surgery TECHNIQUE: Single frontal view of the chest is obtained. FINDINGS: Exam is expiratory. Patchy density is present in the bilateral lungs. There is blunting of the left costophrenic angle. Heart is enlarged. Patient is post median sternotomy and left atrial ap pendage clip placement. No evident pneumothorax. The aorta is dense. There are overlying artifacts. IMPRESSION: Expiratory exam, difficult to exclude pulmonary edema, pneumonia, atelectasis and possib le associated effusion. Follow-up is recommended.
--- NOTE | 2022-02-04 07:54 | P.PN ---
Subjective Progress Note Date: 02/04/22 02/04/2022, I'm seeing the patient for a follow-up. The patient is postoperative placement and the patient was found also to have an infective endocarditis. The patient is postop day #3 following a noted murmur placement. He had infective endocarditis in the preop blood cultures were negative. The tissue culture from the valve sternotomy positive for enterococcus and the patient is currently on IV Unasyn. The chest x-ray from today shows hepatomegaly and some microvessel congestion. Chest tubes at all removed. No fever. No chills. Is using the incentive spirometer and is pulling approximately 1000. The patient has an underlying cardiac rhythm that is third-degree AV block and the patient will need a pacemaker insertion. Urine output is adequate for now. The patient's has a white cell count of 6.8 with a hemoglobin of 7.8 and the sugar of 114. Platelet count is on 140. Magnesium is 2.6 with a ionized calcium of 4.9. Awake. Alert. His current [place] oxygen. Communicating. He has a right IJ Cordis and he still has an arterial line in his right upper extremity. Objective - Vital Signs Vital signs: Vital Signs Temp 98.2 F 02/04/22 04:00 Pulse 88 02/04/22 07:34 Resp 18 02/04/22 06:00 BP 142/72 02/04/22 02:00 Pulse Ox 98 02/04/22 07:23 FiO2 50 01/31/22 17:00 Intake & Output 02/03/22 02/04/22 02/04/22 18:59 06:59 18:59 Intake Total 2001 1161 Output Total 1889 1025 Balance 112 137 Weight 107.6 kg Intake: IV 362 562 Ampicillin 2,000 mg In 200 Sodium Chloride 0.9% 100 ml @ 200 mls/hr IVPB Q4HR [facility] Rx#:[id number] PRESSURE BAG (Sodium 72 72 Chloride 0.9) Sodium Chloride 0.9% 1, 240 240 000 ml @ 20 mls/hr IV . Q24H [facility] Rx#:[id number] cefTRIAXone 2 gm In 50 50 Sodium Chloride 0.9% 50 ml @ 100 mls/hr IVPB Q12HR [facility] Rx#:[id number] Intake, IV Titration 200 Amount Ampicillin 2,000 mg In 200 Sodium Chloride 0.9% 100 ml @ 200 mls/hr IVPB Q6H [facility] Rx#:[id number] Oral 1080 600 Blood Product 310 Rc As-1 Unit 310 [id number] Other 50 Rc As-1 Unit 50 [id number] Output: Urine 1890 1025 Other: Voiding Method Indwelling Catheter Indwelling Catheter ABP, PAP, CO, CI - Last Documented Arterial Blood Pressure 163/49 Pulmonary Artery Pressure 36/15 Cardiac Output 5.5 Cardiac Index 2.5 - Exam No acute distress, oriented 3. Currently on RA HEENT examination is grossly unremarkable. Neck supple. Full range of motion. No adenopathy thyromegaly or neck vein distention. Cardiovascular examination reveals regular rhythm rate. S1-S2 normal. No S3 or S4. Heart rate 87 bpm. Lungs reveal clear breath sounds. Breath sounds are equal bilaterally. No adventitious lung sounds including wheezes rhonchi or crackles. Saturations on 2 L are 96 %. Abdomen soft bowel sounds are heard. No masses or tenderness. Extremities are intact. No cyanosis clubbing or edema. Skin is without rash or lesion. Neurologic examination is brief but nonfocal. - Labs CBC & Chem 7: 02/04/22 04:40 02/04/22 04:40 Labs: Abnormal Lab Results - Last 24 Hours (Table) 02/03/22 02/03/22 02/03/22 Range/Units 09:30 11:51 16:53 RBC (4.30-5.90) m/uL Hgb (13.0-17.5) gm/dL Hct (39.0-53.0) % RDW (11.5-15.5) % Plt Count (150-450) k/uL Lymphocytes # (1.0-4.8) k/uL Sodium (137-145) mmol/L Carbon Dioxide (22-30) mmol/L BUN (9-20) mg/dL Glucose (74-99) mg/dL POC Glucose (mg/dL) 181 H 203 H (70-110) mg/dL Calcium (8.4-10.2) mg/dL Magnesium (1.6-2.3) mg/dL Crossmatch See Detail 02/03/22 02/03/22 02/04/22 Range/Units 16:55 20:34 04:40 RBC 2.56 L 2.42 L (4.30-5.90) m/uL Hgb 7.9 L 7.8 L (13.0-17.5) gm/dL Hct 23.5 L 22.6 L (39.0-53.0) % RDW 16.1 H 15.8 H (11.5-15.5) % Plt Count 141 L 140 L (150-450) k/uL Lymphocytes # 0.6 L (1.0-4.8) k/uL Sodium (137-145) mmol/L Carbon Dioxide (22-30) mmol/L BUN (9-20) mg/dL Glucose (74-99) mg/dL POC Glucose (mg/dL) 183 H (70-110) mg/dL Calcium (8.4-10.2) mg/dL Magnesium (1.6-2.3) mg/dL Crossmatch 02/04/22 02/04/22 Range/Units 04:40 07:15 RBC (4.30-5.90) m/uL Hgb (13.0-17.5) gm/dL Hct (39.0-53.0) % RDW (11.5-15.5) % Plt Count (150-450) k/uL Lymphocytes # (1.0-4.8) k/uL Sodium 130 L (137-145) mmol/L Carbon Dioxide 20 L (22-30) mmol/L BUN 27 H (9-20) mg/dL Glucose 114 H (74-99) mg/dL POC Glucose (mg/dL) 130 H (70-110) mg/dL Calcium 7.8 L (8.4-10.2) mg/dL Magnesium 2.6 H (1.6-2.3) mg/dL Crossmatch Microbiology - Last 24 Hours (Table) 01/31/22 14:04 Gram Stain - Final Other - Other Tissue Culture - Final Enterococcus faecalis 01/31/22 14:03 Anaerobic Culture - Preliminary Other - Other Assessment and Plan Plan: Postoperative day #3, status post redo sternotomy, extraction of previous prosthetic aortic valve, and replacement with a 21 mm pericardial bioprosthesis aortic valve. Postthoracotomy. The patient is currently on room air oxygen. Surgical site is likely an intact Acute prosthetic aortic valve endocarditis, secondary to Enterococcus faecalis. The patient remains on IV Unasyn Prior history of aortic valve replacement, 4 years ago for aortic stenosis. High-grade AV block, secondary to endocarditis. Acute encephalopathy, secondary to endocarditis and sepsis. History of COPD, stable. Essential hypertension. Type 2 diabetes mellitus. BPH. Seasonal ALLERGIC rhinitis. Plan: The patient is currently [place] oxygen The patient is using the incentive spirometer Hemodynamically stable Cardiac rhythm is fairly high degree AV block and the patient will need a pacemaker insertion and this will be discussed with cardiology. The blood cultures are negative and the patient should be able to have a pacemaker inserted Chest x-ray is essentially showing postsurgical changes. There is some mild p ulmonary vascular congestion Continue Levemir insulin 24 units for blood sugar control in addition to NovoLog 5 units with meals Hydrocodone for pain control No beta blockers for now Keep in the ICU for another 24 hours and will continue to follow. Overall neurovascular status is stable.
--- NOTE | 2022-02-04 08:53 | P.PN ---
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 History of severe aortic valve stenosis status post aortic valve replacement with a 23 mm Inspiris bioprosthetic aortic valve in November 2017, CAD with mid RCA stenosis 50% and previous PCI in 2018, hypertension, hyperlipidemia, insulin-dependent diabetes mellitus type 2, obesity, obstructive sleep apnea without CPAP use, moderate COPD, asthma, previous tobacco dependence, benign prostatic hypertrophy, UTIs with pseudomonas in 01/2020, gout, bilateral internal carotid stenosis 50-70% POD #4 redo sternotomy, excision of the previous 23 mm Inspiris pericardial bioprosthesis and debridement of the annulus, aortic valve replacement using a 21 mm Inspiris pericardial bioprosthesis Postoperative acute blood loss anemia, expected given hemodilution and cardiopulmonary bypass pump The patient was seen and examined sitting up in a recliner in the intensive care unit in no acute distress. He remains AV paced at 80 bpm, hemodynamically stable on no inotropes or pressors. He does complain of postoperative pain, denies shortness of breath, his only real complaint at this time is congestion in his throat. Right internal jugular Cordis, right radial arterial line remain present. Hemoglobin this morning 7.8, was 6.7 yesterday, received 1 unit packed red blood cells yesterday. Patient needs lots of encouragement for any activity. Anticipates permanent pacemaker placement today, currently nothing by mouth. No other new concerns. Objective - Vital Signs Vital signs: Vital Signs Temp 98.2 F 02/04/22 04:00 Pulse 88 02/04/22 07:34 Resp 18 02/04/22 06:00 BP 142/72 02/04/22 02:00 Pulse Ox 98 02/04/22 07:23 FiO2 50 01/31/22 17:00 Intake & Output 02/03/22 02/04/22 02/04/22 18:59 06:59 18:59 Intake Total 2001 116 Output Total 0 1025 Balance 112 137 Weight 107.6 kg Intake: IV 362 562 Ampicillin 2,000 mg In 200 Sodium Chloride 0.9% 100 ml @ 200 mls/hr IVPB Q4HR [facility] Rx#:[id number] PRESSURE BAG (Sodium 72 72 Chloride 0.9) Sodium Chloride 0.9% 1, 240 240 000 ml @ 20 mls/hr IV . Q24H [facility] Rx#:[id number] cefTRIAXone 2 gm In 50 50 Sodium Chloride 0.9% 50 ml @ 100 mls/hr IVPB Q12HR [facility] Rx#:[id number] Intake, IV Titration 200 Amount Ampicillin 2,000 mg In 200 Sodium Chloride 0.9% 100 ml @ 200 mls/hr IVPB Q6H [facility] Rx#:[id number] Oral 1080 600 Blood Product 310 Rc As-1 Unit 310 [id number] Other 50 Rc As-1 Unit 50 [id number] Output: Urine 1890 1025 Other: Voiding Method Indwelling Catheter Indwelling Catheter ABP, PAP, CO, CI - Last Documented Arterial Blood Pressure 163/49 Pulmonary Artery Pressure 36/15 Cardiac Output 5.5 Cardiac Index 2.5 - Exam CONSTITUTIONAL: Appears comfortable, cooperative, no acute distress RESPIRATORY: Lungs sounds diminished bilaterally. Respirations even, nonlabored. Currently on room air with oxygen saturation 96%. Able to achieve 7180-2491 mL on incentive spirometry. Strong cough. CARDIOVASCULAR: S1, S2 present. Regular rate and rhythm, 100% AV paced on telemetry at 80 bpm. Sternum stable. Palpable peripheral pulses bilaterally. Trace generalized edema present. No calf pain or tenderness noted. Heart hugger in place with patient demonstrating appropriate use. Antiembolism stockings, SCDs present. GASTROINTESTINAL: Abdomen soft, nontender, slightly distended, tympanic sounds to percussion. Active bowel sounds present 4 quadrants. Tolerating minimal diet. Positive flatus GENITOURINARY: Hargrove present draining clear, yellow urine. Output overnight 60-100 mL per hour, 2765 mL in the last 24 hours INTEGUMENTARY: Skin is warm and dry with evidence of good perfusion. Anterior chest incision well approximated NEUROLOGIC: Cranial nerves II through XII intact MUSKULOSKELETAL: Able to move all extremities, strength equal bilaterally PSYCHIATRIC: Alert and oriented to person place and time, appropriate affect, intact judgment and insight INVASIVE LINES AND TUBES: A/V epicardial pacemaker wires present, connected to generator, DDD mode with rate 80 bpm Right internal jugular Cordis, right radial arterial line present. - Allied health notes Allied health notes reviewed: nursing - Labs CBC & Chem 7: 02/04/22 04:40 02/04/22 04:40 Labs: Abnormal Lab Results - Last 24 Hours (Table) 02/03/22 02/03/22 02/03/22 Range/Units 09:30 11:51 16:53 RBC (4.30-5.90) m/uL Hgb (13.0-17.5) gm/dL Hct (39.0-53.0) % RDW (11.5-15.5) % Plt Count (150-450) k/uL Lymphocytes # (1.0-4.8) k/uL Sodium (137-145) mmol/L Carbon Dioxide (22-30) mmol/L BUN (9-20) mg/dL Glucose (74-99) mg/dL POC Glucose (mg/dL) 181 H 203 H (70-110) mg/dL Calcium (8.4-10.2) mg/dL Magnesium (1.6-2.3) mg/dL Crossmatch See Detail 02/03/22 02/03/22 02/04/22 Range/Units 16:55 20:34 04:40 RBC 2.56 L 2.42 L (4.30-5.90) m/uL Hgb 7.9 L 7.8 L (13.0-17.5) gm/dL Hct 23.5 L 22.6 L (39.0-53.0) % RDW 16.1 H 15.8 H (11.5-15.5) % Plt Count 141 L 140 L (150-450) k/uL Lymphocytes # 0.6 L (1.0-4.8) k/uL Sodium (137-145) mmol/L Carbon Dioxide (22-30) mmol/L BUN (9-20) mg/dL Glucose (74-99) mg/dL POC Glucose (mg/dL) 183 H (70-110) mg/dL Calcium (8.4-10.2) mg/dL Magnesium (1.6-2.3) mg/dL Crossmatch 02/04/22 02/04/22 Range/Units 04:40 07:15 RBC (4.30-5.90) m/uL Hgb (13.0-17.5) gm/dL Hct (39.0-53.0) % RDW (11.5-15.5) % Plt Count (150-450) k/uL Lymphocytes # (1.0-4.8) k/uL Sodium 130 L (137-145) mmol/L Carbon Dioxide 20 L (22-30) mmol/L BUN 27 H (9-20) mg/dL Glucose 114 H (74-99) mg/dL POC Glucose (mg/dL) 130 H (70-110) mg/dL Calcium 7.8 L (8.4-10.2) mg/dL Magnesium 2.6 H (1.6-2.3) mg/dL Crossmatch Microbiology - Last 24 Hours (Table) 01/31/22 14:04 Gram Stain - Final Other - Other Tissue Culture - Final Enterococcus faecalis 01/31/22 14:03 Anaerobic Culture - Preliminary Other - Other - Imaging and Cardiology Chest x-ray: report reviewed, image reviewed Assessment and Plan Assessment: 1. 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 Bacteremia with enterococcus faecalis, blood cultures currently negative to date 3. Moderate mitral valve regurgitation 4. Altered mental status present on admission, resolved 5. History of severe aortic valve stenosis status post aortic valve replacement with a 23 mm Inspiris bioprosthetic aortic valve in November 2017 6. CAD with mid RCA stenosis 50% and previous PCI in 2018 7. Hypertension 8. Hyperlipidemia, treated, cholesterol 86, LDL 39 9. Insulin-dependent diabetes mellitus type 2, preoperative hemoglobin A1c 7.8% 10. Obesity 11. Obstructive sleep apnea without CPAP use 12. Moderate COPD, FEV1 59% of predicted 13. Asthma 14. Previous tobacco dependence 15. Benign prostatic hypertrophy, currently on Flomax, Cardura, Proscar 16. UTIs with pseudomonas in 01/2020 17. Gout 18. Bilateral internal carotid stenosis 50-70% 19. Postoperative acute blood loss anemia, expected given hemodilution and cardiopulmonary bypass pump Plan: 1. Continue to maximize medical therapy with aspirin, statin, Plavix, hydralazine. Hydralazine was increased to 50 mg twice daily today. Beta erasto remains on hold and is contraindicated at this time due to heart block. 2. Encourage use of his incentive spirometry 10 times every hour while awake. Bronchodilators per pulmonology 3. Increase activity, ambulate as tolerated. PT/OT/cardiac rehab following. Patient needs lots of encouragement 4. Will monitor daily labs and x-rays. Electrolyte replacement per protocol. No blood transfusion or Lasix today 5. Continue ampicillin and Rocephin per infectious disease recommendations. 6. GI and DVT prophylaxis 7. Pain control current medication regimen. 8. Insulin management per primary care service 9. Patient will have permanent pacemaker placement done today by Dr. Scruggs. Will discontinue epicardial pacemaker wires tomorrow 10. Will discontinue cordis after pacemaker placement, patient will need midline catheter 11. Will discontinue Hargrove catheter this afternoon, may bladder scan and straight cath for greater than 300 mL residual 12. Strict accurate intake and output. Daily weights 13. More recommendations as patient progresses
[2022-02-04] MEDS ORDERED: LACTULOSE 20 GM/30 ML CUP PO SCH (09:00)
[2022-02-04] MEDS: INSULIN ASPART (NovoLOG) 100 UNIT/ML VIAL SQ SCH ×7 (09:01→20:22)
[2022-02-04] MEDS: FERROUS SULFATE 325 MG TAB PO SCH ×2 (09:14→17:07)
[2022-02-04] MEDS: ASCORBIC ACID 500 MG TAB PO SCH ×2 (09:14→17:07)
[2022-02-04] MEDS: MONTELUKAST 10 MG TAB PO SCH (09:15)
[2022-02-04] MEDS: hydrALAZINE HCL 50 MG TAB PO SCH ×2 (09:15→20:31)
[2022-02-04] MEDS: ATORVASTATIN 40 MG TAB PO SCH (09:15)
[2022-02-04] MEDS: PANTOPRAZOLE 40 MG TABLET PO SCH (09:15)
[2022-02-04] MEDS: TAMSULOSIN 0.4 MG CAP.ER.24H PO SCH (09:15)
[2022-02-04] MEDS: ASPIRIN 325 MG TAB PO SCH (09:15)
[2022-02-04] MEDS: allopurinoL 100 MG TAB PO SCH (09:15)
[2022-02-04] MEDS: guaiFENesin 600 MG TABLET.ER PO SCH ×2 (09:15→20:31)
[2022-02-04] MEDS: DOXAZOSIN 4 MG TAB PO SCH ×2 (09:16→20:41)
[2022-02-04] MEDS: CLOTRIMAZOLE 1% CREAM 30 GM TUBE TOPICAL SCH ×2 (09:17→20:31)
[2022-02-04] MEDS: FINASTERIDE 5 MG TAB PO SCH (09:17)
[2022-02-04] MEDS: polyethylene glycoL 3350 17 GM POWD.PACK PO SCH (09:18)
--- NOTE | 2022-02-04 09:19 | P.PN ---
Subjective Progress Note Date: 02/04/22 HISTORY OF PRESENT ILLNESS This is a 76-year-old male patient with past medical history of hypertension with hypertensive cardiovascular disease, hyperlipidemia, diabetes mellitus type 2 with diabetic polyneuropathy, enlarged prostate, history of aortic valve disease status post aortic valve replacement with a 23 mm valve on 12/04/2017, prior to that, left heart catheterization revealed 30-40% stenosis in the RCA in 2018, history of melanoma status post resection 12/07/2021, from the back. Patient initially presented to [facility] with mental status changes with significant encephalopathy. CAT scan of the brain did not show any acute infarct or bleed. Patient did have leukocytosis and low-grade fever. He is status post IV fluid resuscitation, he was started on IV antibiotics initially in the form of Levaquin and subsequently changed to ampicillin and ce ftriaxone by Dr. Cunningham. EKG did not show any evidence of acute changes. CAT scan of the chest abdomen and pelvis showed some perinephric stranding without evidence of hydronephrosis, there was evidence of diverticulosis without diverticulitis. CAT scan of the chest showed evidence of cardiomegaly with bilateral pleural effusion and possible pulmonary fibrosis. CAT scan of the cervical spine did show evidence of spondylosis of cervical spine without evidence of fracture. CAT scan of the brain showed brain atrophy without evidence of acute infarct or bleed, small vessel disease present. Patient was initially admitted to [facility] where he was followed by infectious disease as well as cardiology. He underwent a REESE on 01/22 revealed left ventricular systolic function normal at 55-60%, small aortic valve vegetation was present measuring 0.53 cm. Patient has bioprosthetic aortic valve. Moderate MR, [id number] tricuspid regurgitation, no pericardial effusion. Patients blood cultures were positive for enterococcus species. Patient was in a sinus rhythm with a first-degree AV block but subsequently developed a high-grade AV block on 01/24 with progressive worsening of the AV block and PVCs. Patient is complaining of left lower rib cage chest discomfort. No palpitations or dizziness. Patient was then transferred to [facility] to be evaluated by cardiothoracic surgery team. Patient is seen today in the intensive care unit, consults added for cardiology, clock smith, cardiothoracic surgery. 01/25: Patient is seen today in the ICU. He states he slept well last night. He states he is better able to take a deep breath with less pain on his left chest wall. He is able to reach 1500 MLS on incentive spirometry. He is complaining of tingling in bilateral feet. Has not had a bowel movement but feels that he needs to today. Senokot scheduled added. Blood sugar was low this morning and glimepiride decreased to 2 mg twice daily and Levemir decreased to 20 units. Patient has an external catheter in place draining clear emily urine. He has been evaluated by cardiology, cardiothoracic surgery and clock smith. Cardiology is planning for temporary pacemaker. C plan to continue close monitoring in the intensive care unit, monitor results of the blood cultures.hest x-ray reveals postoperative changes similar to prior exam. There may be some interstitial changes. Carotid ultrasound reveals slight elevated velocity in the internal carotid arteries bilaterally suggestive of 50-70 percent stenosis. There is antegrade flow in the vertebral arteries. Panorex CAT scan completed without any significant abnormalities. Arterial ultrasound bilateral lower extremities revealed normal ankle brachial indices. 01/26: Patient is lying down in bed in no acute distress, yesterday underwent temporary TVP for 2nd degree AV block, plan is to repeat REESE for further evaluation of possible abscess formation and the degree of involvement of the aortic ring of the bioprosthetic aortic valve, we will continue with IV Rocephin and Ampicillin for now, repeated blood cltures from 01/24/2022 still no growth so far, also nasal screen negative for MSSA.MRSA, bedside spirometer showed FEV2 38 % of predicted, we will continue with aggressive pulmonary toiletting, patient has been seen by multiple services , prognosis continues to be guarded, spoke with his daughter and his over the phone , they are contemplating if he should go to a [facility] like [facility] or [facility], our cardiothoracic team is involved and hopefully will see patient today and alleviate his concerns and give their recommendations on surgical intervention. 01/28: The patient remains in the intensive care unit patient has been afebrile, heart rate 70s, blood pressure 157/77, pulse ox 94% on room air. monitor tech is a paced rhythm. Cardiac catheterization, performed on 01/27, reveals moderate disease in the mid RCA, no evidence of high-grade stenosis in the LAD or left circumflex and placement of a temporary pacemaker. Patient will be seen by a dentist this afternoon. He is utilizing his incentive spirometry regularly and reaching 2000 2500. He is eating all of his food. He states he had a bowel movement yesterday and today. He is urinating without any difficulty. Patient is expecting to be seen by Dr. Lopez to discuss surgical options. WBC 6.4, hemoglobin 0.5, platelet count 235. BMP within normal limits. Calcium 8.2. Capillary blood glucose running between 126 and 196. Blood culture obtained on 01/24 showing no growth after 72 hours 1 specimen. 01/29: Patient was seen by the dentist yesterday and was cleared by surgery. He complains of dry mouth when he woke up this morning but otherwise no new complaints. monitor tech is paced rhythm. Pulse ox 95% on room air. Blood pressure elevated 182/87. Hydrochlorothiazide 25 mg added to his blood pressure regime. Repeat blood work reveals WBC 5.3, hemoglobin 11.7, platelet count 230. Electrolytes and renal function normal. Capillary blood glucose running between 97-194. Patient is waiting to hear from the cardiothoracic team regarding plan for surgery. 01/30: Patient is scheduled for redo aortic valve replacement, possible aortic root replacement on 01/31. a consult was added for urology yesterday for recurrent UTIs. Patient denies dysuria, he is able to void spontaneously and is maintained on Flomax and Proscar. Dr. Farooq believes the culture from 2019 is contamination rather than actual UTI with history of phimosis contributing to positive culture. Plan to follow up with Dr. Emmanuel as normally scheduled. patient is continued on antibiotics the form of ampicillin and Rocephin. patient has remained afebrile. Pulse ox is 97% on room air. CM paced rhythm. Blood pressure 140/67 and has been improved overnight with addition of hydrochlorothiazide yesterday. Repeat blood work reveals WBC 6.1, hemoglobin 11.7, platelet count 237. Electrolytes and renal function are normal with creatinine of 1.08. White blood glucose running between 109 and 177. 01/31: Patient remains afebrile overnight with heart rate 49-54. Blood pressure 139/69 and pulse ox 94% on room air. Repeat blood work reveals WBC 5.0, hemoglobin 11.1, platelet count 246. Sodium 136, potassium 4.4, chloride 103, CO2 24, BUN 29 creatinine 1.05. Blood sugar 122. Capillary blood glucose running between 106 and 166. Patient is scheduled for redo aortic valve replacement today. 02/01: Patient is status post aortic valve replacement with bioprosthetic device. He remains in the intensive care unit. He was successfully extubated last evening and currently on 2 L nasal cannula with pulse ox of 97%. Heart rate is running in the 80s, blood pressure 114/60. monitor tech is paced rhythm. Repeat blood work reveals WBC 6.3, hemoglobin 7.3, platelet count 150. Sodium 136, potassium 4.7, chloride 108, CO2 22, BUN 20 creatinine 1.17. Capillary blood glucose running between 110 and 127. Magnesium 2.6. Intraoperative tissue cultures are in process. Repeat chest x-ray reveals postoperative changes with bilateral infiltrate and small effusions. Patient has been started on Plavix, aspirin 325 mg daily, patient started on insulin drip, Levemir and Farxiga discontinued. The patient is complaining of sensation like urethral spasm like he has a urinary tract infection, Hargrove catheter is in place and draining. No hematuria. Patient states he is only sleeping a few minutes at a time. He does not have much appetite. 02/02 : Patient is feeling weak today , somewhat forgetful, did receive one unit of PRBC, chest tubes were removed and he will be switched to Levemir 24 units sc qhs and Novolog 5 units AC meals plus SSI and he will comeoff insulin drip, he continues to have dysuria, has Hargrove catheter in place and we will continue to have chronic phimosis that will require surgery down the line. 02/04: Patient is resting recliner in the ICU. He states he slept a little bit last night but is consistently not getting much sleep. He states he feels less short of breath today. He is complaining of needing to void but he continues to have a Hargrove catheter in place. He has not had a bowel movement for the last 3- 4 days. Lactulose added. He also states that he continues to have decreased appetite which may improve after having a bowel movement. Patient is scheduled for permanent pacemaker today with Dr Scruggs. monitor tech is paced rhythm. He is currently on insulin 24 units of Levemir at bedtime along with 5 units of NovoLog with meals and NovoLog scale. Blood Glucose Running between 130 and 203. Repeat Blood Work Reveals WBC 6.2, Hemoglobin 7.8 up to 140. Sodium 130, Potassium 4.1, Chloride 102, CO2 20, BUN 27 Creatinine 1.15. Magnesium 2.6. Patient Received 1 Unit of Packed RBCs Yesterday. Tissue Culture Is Positive for Enterococcus Faecalis. Chest x-ray this morning reveals difficult to exclude pulmonary edema, pneumonia, atelectasis and possible associated effusion. Patient is reaching 1500 mL on incentive spirometry. REVIEW OF SYSTEMS Constitutional: No fever, no chills, no night sweats. No weight change. No weakness, denies fatigue no lethargy. Reports daytime sleepiness. EENT: No headache. No blurred vision or double vision, no loss of vision. No loss of Hearing, no ringing in the ears, no dizziness. No nasal drainage or congestion. No epistaxis. No sore throat. Lungs: Reports mild shortness of breath improving, cough, no sputum production. No wheezing. Cardiovascular: Reports chest discomfort, no lower extremity edema. No palpitations. No paroxysmal nocturnal dyspnea. No orthopnea. No lightheadedness or dizziness. No syncopal episodes. Abdominal: No abdominal pain. No nausea, vomiting. No diarrhea. No constipation. No bloody or tarry stools. Reports loss of appetite. Genitourinary: No dysuria, increased frequency, urgency. No urinary retention- Hargrove catheter in place. Musculoskeletal: No myalgias. No muscle weakness, no gait dysfunction, no frequent falls. No back pain. No neck pain. Integumentary: No wounds, no lesions. No rash or pruritus. No unusual bruising. Neurologic: No aphasia. No facial droop. No change in mentation. No head injury. No headache. No paralysis. No paresthesia. Psychiatric: No depression. No anxiety. No mood swings. Reports insomnia Endocrine: No abnormal blood sugars. No weight change. No excessive sweating or thirst. No cold intolerance. PHYSICAL EXAMINATION Gen: This is a 76-year-old male. He is resting in ICU in recliner and appears to be in no acute distress. HEENT: Head is atraumatic, normocephalic. Pupils equal, round. Sclerae is anicteric. NECK: Supple. No JVD. No lymphadenopathy. No thyromegaly. Right sided Cordis. LUNGS: Decrease breath sounds at the bases No wheezes or rhonchi, sternotomy site is covered with pressure dressing, minmal tenderness to palpation, chest tubes were removed. HEART: First heart sound is depressed, second heart sound is normal, aortic valve click, systolic ejection murmur 2/6 at the left sternal border.. ABDOMEN: Soft. Bowel sounds are present. No masses. No tenderness. EXTREMITIES: Trace pedal edema. No calf tenderness. Dorsalis pedis +2 bilaterally. NEUROLOGICAL: Patient is awake, alert and oriented x3. Cranial nerves 2 through 12 are grossly intact. Muscle power 4 out of 5 upper and lower extremities bilaterally. ASSESSMENT AND PLAN 1. 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 2. Third degree AV block. has a temporary Pacemaker and is scheduled for permanent pacemaker today 02/04. 3. Enterococcus Feacalis Endocarditis. we will continue with Rocephin 2 gr IVPB Q 12 hours and Ampicillin 2 gr IVPB Q 6 hours, ID team is following. 4. Hypertension with hypertensive cardiovascular disease. Continue patient on Hydralazine increased to 50 mg po bid and Cardura 8 mg po bid. 5. Hyperlipidemia. Continue atorvastatin 40 mg at bedtime. 6. Diabetes mellitus type 2. we will transition from insulin drip into Levemir 24 units Sc qhs , Novolog 5 units AC meals tid along with SSI. 7. Benign prostatic hypertrophy. Continue Flomax 0.4 mg daily, continue finasteride 5 mg daily 8. 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 Continue patient on Symbicort 160- 4.5 g 2 puffs twice daily, albuterol nebulizer every 4 hours as needed for shortness of breath, reviewed bedside spirometery with FEV1 38 % of predicted. 9. ALLERGIC rhinitis. Continue Singulair 10 mg at bedtime. 10. Chronic gout. Continue allopurinol 100 mg daily. 11. DVT prophylaxis. Heparin 5000 units subcu every 8 hours. 12. GI prophylaxis. Protonix 40 mg daily. 13. Acute blood loss Anemia, S/P 1 units of PRBCs. 14. Medical debility. we ill require inpatient rehab. CODE STATUS: Full code. DISCHARGE PLAN Most likely home with [facility] next week VS Inpatient rehab. Impression and plan of care have been directed as dictated by the signing physician. Maria G Paez nurse practitioner acting as scribe for signing physician. Objective - Vital Signs Vital signs: Vital Signs Temp 98.2 F 02/04/22 04:00 Pulse 88 02/04/22 07:34 Resp 18 02/04/22 06:00 BP 142/72 02/04/22 02:00 Pulse Ox 98 02/04/22 07:23 FiO2 50 01/31/22 17:00 Intake & Output 02/03/22 02/04/22 02/04/22 18:59 06:59 18:59 Intake Total 2001 1162 26 Output Total 1890 1025 200 Balance 112 137 -174 Weight 107.6 kg Intake: IV 362 562 26 Ampicillin 2,000 mg In 200 Sodium Chloride 0.9% 100 ml @ 200 mls/hr IVPB Q4HR [facility] Rx#:[id number] PRESSURE BAG (Sodium 72 72 6 Chloride 0.9) Sodium Chloride 0.9% 1, 240 240 20 000 ml @ 20 mls/hr IV . Q24H [facility] Rx#:[id number] cefTRIAXone 2 gm In 50 50 Sodium Chloride 0.9% 50 ml @ 100 mls/hr IVPB Q12HR [facility] Rx#:[id number] Intake, IV Titration 200 Amount Ampicillin 2,000 mg In 200 Sodium Chloride 0.9% 100 ml @ 200 mls/hr IVPB Q6H [facility] Rx#:[id number] Oral 1080 600 Blood Product 310 Rc As-1 Unit 310 [id number] Other 50 Rc As-1 Unit 50 [id number] Output: Urine 1890 1025 200 Other: Voiding Method Indwelling Catheter Indwelling Catheter ABP, PAP, CO, CI - Last Documented Arterial Blood Pressure 163/49 Pulmonary Artery Pressure 36/15 Cardiac Output 5.5 Cardiac Index 2.5 - Labs CBC & Chem 7: 02/04/22 04:40 02/04/22 04:40 Labs: Abnormal Lab Results - Last 24 Hours (Table) 02/03/22 02/03/22 02/03/22 Range/Units 09:30 11:51 16:53 RBC (4.30-5.90) m/uL Hgb (13.0-17.5) gm/dL Hct (39.0-53.0) % RDW (11.5-15.5) % Plt Count (150-450) k/uL Lymphocytes # (1.0-4.8) k/uL Sodium (137-145) mmol/L Carbon Dioxide (22-30) mmol/L BUN (9-20) mg/dL Glucose (74-99) mg/dL POC Glucose (mg/dL) 181 H 203 H (70-110) mg/dL Calcium (8.4-10.2) mg/dL Magnesium (1.6-2.3) mg/dL Crossmatch See Detail 02/03/22 02/03/22 02/04/22 Range/Units 16:55 20:34 04:40 RBC 2.56 L 2.42 L (4.30-5.90) m/uL Hgb 7.9 L 7.8 L (13.0-17.5) gm/dL Hct 23.5 L 22.6 L (39.0-53.0) % RDW 16.1 H 15.8 H (11.5-15.5) % Plt Count 141 L 140 L (150-450) k/uL Lymphocytes # 0.6 L (1.0-4.8) k/uL Sodium (137-145) mmol/L Carbon Dioxide (22-30) mmol/L BUN (9-20) mg/dL Glucose (74-99) mg/dL POC Glucose (mg/dL) 183 H (70-110) mg/dL Calcium (8.4-10.2) mg/dL Magnesium (1.6-2.3) mg/dL Crossmatch 02/04/22 02/04/22 Range/Units 04:40 07:15 RBC (4.30-5.90) m/uL Hgb (13.0-17.5) gm/dL Hct (39.0-53.0) % RDW (11.5-15.5) % Plt Count (150-450) k/uL Lymphocytes # (1.0-4.8) k/uL Sodium 130 L (137-145) mmol/L Carbon Dioxide 20 L (22-30) mmol/L BUN 27 H (9-20) mg/dL Glucose 114 H (74-99) mg/dL POC Glucose (mg/dL) 130 H (70-110) mg/dL Calcium 7.8 L (8.4-10.2) mg/dL Magnesium 2.6 H (1.6-2.3) mg/dL Crossmatch Microbiology - Last 24 Hours (Table) 01/31/22 14:04 Gram Stain - Final Other - Other Tissue Culture - Final Enterococcus faecalis 01/31/22 14:03 Anaerobic Culture - Preliminary Other - Other
--- NOTE | 2022-02-04 09:36 | P.PN ---
Subjective Progress Note Date: 02/04/22 The patient is a 76-year-old male follows in the office with Dr. Cárdenas. He presented to [facility] on 01/17/2022 with mental status changes and was found to have infective endocarditis. TVP was placed for second-degree heart block. On 01/31/2022 he underwent redo aortic valve replacement with Dr. Lopez. Postoperatively the patient has been pacemaker dependent with third- degree heart block. He is scheduled to undergo pacemaker implantation today with Dr. Scruggs. The patient was interviewed and examined sitting comfortably in the recliner chair. He states he does have shortness of breath and weakness with physical activity. He also reports a congested cough with minimal sputum production. He denies any chest pain or chest pressure. No dizziness when standing. GENERAL: Well-appearing, well-nourished and in no acute distress. NECK: Supple without JVD or thyromegaly. LUNGS: Breath sounds clear to auscultation bilaterally. Respiration equal and unlabored. Bilateral expiratory wheezes HEART: Regular rate and rhythm without rubs or gallops. S1 and S2 heard. Systolic murmur. Sternal incision approximated. EXTREMITIES: Normal range of motion, mild generalized edema. No clubbing or cyanosis. Peripheral pulses intact and strong. VITALS: Blood pressure 163/49, pulse 88, respiratory rate 18, SpO2 93% on room air TELEMETRY: Paced rhythm LABS: WBC 6.2, hemoglobin 7.8, hematocrit 22.6, platelet 140, sodium 1:30, potassium 4.1, BUN 27, creatinine 1.15, magnesium 2.6 IMPRESSION: Infective endocarditis, enterococcus faecalis Redo aortic valve replacement Advanced heart block History of coronary artery disease History of diabetes mellitus PLAN: Proceed with pacemaker implantation for advanced heart block Recommend aggressive pulmonary hygiene Further recommendations to be based on clinical course I am dictating on behalf of Dr Grey Scrugsg's history/physical and assessment/plan. Objective - Vital Signs Vital signs: Vital Signs Temp 98.2 F 02/04/22 04:00 Pulse 88 02/04/22 07:34 Resp 18 02/04/22 06:00 BP 142/72 02/04/22 02:00 Pulse Ox 98 02/04/22 07:23 FiO2 50 01/31/22 17:00 Intake & Output 02/03/22 02/04/2202/04/22 18:59 06:59 18:59 Intake Total 2001 1162 Output Total 1890 1025 Balance 112 137 Weight 107.6 kg Intake: IV 362 562 Ampicillin 2,000 mg In 200 Sodium Chloride 0.9% 100 ml @ 200 mls/hr IVPB Q4HR [facility] Rx#:[id number] PRESSURE BAG (Sodium 72 72 Chloride 0.9) Sodium Chloride 0.9% 1, 240 240 000 ml @ 20 mls/hr IV . Q24H [facility] Rx#:[id number] cefTRIAXone 2 gm In 50 50 Sodium Chloride 0.9% 50 ml @ 100 mls/hr IVPB Q12HR [facility] Rx#:[id number] Intake, IV Titration 200 Amount Ampicillin 2,000 mg In 200 Sodium Chloride 0.9% 100 ml @ 200 mls/hr IVPB Q6H [facility] Rx#:[id number] Oral 1080 600 Blood Product 310 Rc As-1 Unit 310 [id number] Other 50 Rc As-1 Unit 50 [id number] Output: Urine 1890 1025 Other: Voiding Method Indwelling Catheter Indwelling Catheter ABP, PAP, CO, CI - Last Documented Arterial Blood Pressure 163/49 Pulmonary Artery Pressure 36/15 Cardiac Output 5.5 Cardiac Index 2.5 - Labs CBC & Chem 7: 02/04/22 04:40 02/04/22 04:40 Labs: Abnormal Lab Results - Last 24 Hours (Table) 02/03/22 02/03/22 02/03/22 Range/Units 09:30 11:51 16:53 RBC (4.30-5.90) m/uL Hgb (13.0-17.5) gm/dL Hct (39.0-53.0) % RDW (11.5-15.5) % Plt Count (150-450) k/uL Lymphocytes # (1.0-4.8) k/uL Sodium (137-145) mmol/L Carbon Dioxide (22-30) mmol/L BUN (9-20) mg/dL Glucose (74-99) mg/dL POC Glucose (mg/dL) 181 H 203 H (70-110) mg/dL Calcium (8.4-10.2) mg/dL Magnesium (1.6-2.3) mg/dL Crossmatch See Detail 1002/03/22 02/04/22 Range/Units 16:55 20:34 04:40 RBC 2.56 L 2.42 L (4.30-5.90) m/uL Hgb 7.9 L 7.8 L (13.0-17.5) gm/dL Hct 23.5 L 22.6 L (39.0-53.0) % RDW 16.1 H 15.8 H (11.5-15.5) % Plt Count 141 L 140 L (150-450) k/uL Lymphocytes # 0.6 L (1.0-4.8) k/uL Sodium (137-145) mmol/L Carbon Dioxide (22-30) mmol/L BUN (9-20) mg/dL Glucose (74-99) mg/dL POC Glucose (mg/dL) 183 H (70-110) mg/dL Calcium (8.4-10.2) mg/dL Magnesium (1.6-2.3) mg/dL Crossmatch 02/04/22 02/04/22 Range/Units 04:40 07:15 RBC (4.30-5.90) m/uL Hgb (13.0-17.5) gm/dL Hct (39.0-53.0) % RDW (11.5-15.5) % Plt Count (150-450) k/uL Lymphocytes # (1.0-4.8) k/uL Sodium 130 L (137-145) mmol/L Carbon Dioxide 20 L (22-30) mmol/L BUN 27 H (9-20) mg/dL Glucose 114 H (74-99) mg/dL POC Glucose (mg/dL) 130 H (70-110) mg/dL Calcium 7.8 L (8.4-10.2) mg/dL Magnesium 2.6 H (1.6-2.3) mg/dL Crossmatch Microbiology - Last 24 Hours (Table) 01/31/22 14:04 Gram Stain - Final Other - Other Tissue Culture - Final Enterococcus faecalis 01/31/22 14:03 Anaerobic Culture - Preliminary Other - Other
[2022-02-04] MEDS ORDERED: ONDANSETRON 4 MG/2 ML VIAL ONE (10:09)
[2022-02-04] MEDS ORDERED: IOPAMIDOL-300 50ML BTL IV ONE (10:35)
[2022-02-04] MEDS ORDERED: MIDAZOLAM HCL 10 MG/10 ML VIAL IV ONE ×2 (10:38)
[2022-02-04] MEDS ORDERED: ONDANSETRON 4 MG/2 ML VIAL IVP ONE (10:39)
[2022-02-04] MEDS ORDERED: SODIUM CHLORIDE 0.9% 500 ML 500 ML IV ONE (10:40)
[2022-02-04] MEDS ORDERED: LIDOCAINE 1% INJ 10MG/ML (30 ML VIAL-PF) SQ ONE (10:42)
--- NOTE | 2022-02-04 11:41 | P.EPPROC ---
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 Status post debridement and aortic valve replacement, Enterococcal species Final procedures Externalized pacemaker implant via the right axillary vein Pacemaker programmed to VVI is 80 beats a minute Excellent thresholds of 0.5 V at 0.5 ms and impedance of 900 ohms Pacing via the external vias turned off Plan Continue externalized pacing at 80 beats a minute Patient may be ambulatory and may be discharged home with this Do not remove dressing in the right pectoral area Avoid left upper extremity for PICC line in the future Details of procedure Conscious sedation Patient underwent EP procedure under conscious sedation/moderate sedation, mon itoring of the level of consciousness and physiologic parameters including but not limited to vital signs and oxygenation. Patient tolerated the procedure well without any acute complications. Start time: 1041 Stop time: 1116 Right upper extremity venogram Right upper extremity venogram performed 10 mL IV dye injected Patent right axillary and subclavian venous system and SVC Single pacemaker lead placement The right pectoral area was prepped and draped as a protocol. IV antibiotics administered. Access obtained at the level of the second rib, axillary vein Guidewire placed into the IVC Sheath placed Passive lead placed in the RV apex of the right ventricle Excellent thresholds of 0.5 V at 0.5 ms with a pacing impedance of 900 ohms Lead secured over the lead sleeve, on the skin with 2 nonabsorbable sutures Biopatch placed over this site Site dressed securely Lead connected to the pacemaker generator Pacemaker generator programmed to VVI 80 beats a minute Generator secured to the skin Dressing applied over it
[2022-02-04 11:57] LABS: Glucose,Whole Blood 125 mg/dL (70-110)
[2022-02-04 17:24] LABS: Glucose,Whole Blood 98 mg/dL (70-110)
[2022-02-04] MEDS: HYDROcodone/APAP 5-325MG 1 EACH TAB PO PRN (17:51)
[2022-02-04 20:21] LABS: Glucose,Whole Blood 136 mg/dL (70-110)
[2022-02-04] MEDS: MELATONIN 3 MG TABLET PO PRN (20:31)
[2022-02-04] MEDS: SENNOSIDES-DOCUSATE SODIUM 1 EACH TAB PO SCH (20:31)
[2022-02-04] MEDS: INSULIN DETEMIR (LEVEMIR) 100 UNIT/ML SYR SQ SCH (20:41)
[2022-02-05] MEDS: HEPARIN SODIUM,PORCINE/PF 5,000 UNIT/0.5 ML SYRINGE SQ SCH ×4 (00:10→23:54)
[2022-02-05] MEDS: AMPICILLIN 2,000 MG in SODIUM CHLORIDE 0.9% 100 ML IVPB SCH ×7 (00:10→23:54)
[2022-02-05 04:22] LABS: HCT 23.1 % (39.0-53.0); HGB 7.8 gm/dL (13.0-17.5); Hypochromasia Slight; MCHC 33.7 g/dL (31.0-37.0); MCV 94.8 fL (80.0-100.0); Mean Platelet Volume 8.5; Platelet Count 153 k/uL (150-450); Poikilocytosis Slight; RBC 2.43 m/uL (4.30-5.90); RDW 15.9 % (11.5-15.5); WBC 4.9 k/uL (3.8-10.6)
[2022-02-05] MEDS: HYDROcodone/APAP 5-325MG 1 EACH TAB PO PRN (04:29)
[2022-02-05 04:31] LABS: Calcium 7.7 mg/dL (8.4-10.2); Potassium 4.3 mmol/L (3.5-5.1)
[2022-02-05] MEDS: ASCORBIC ACID 500 MG TAB PO SCH ×2 (06:10→16:40)
[2022-02-05] MEDS: FERROUS SULFATE 325 MG TAB PO SCH ×2 (06:10→16:40)
[2022-02-05] MEDS: INSULIN ASPART (NovoLOG) 100 UNIT/ML VIAL SQ SCH ×7 (06:41→20:38)
[2022-02-05 06:42] LABS: Glucose,Whole Blood 92 mg/dL (70-110)
[2022-02-05] MEDS: PANTOPRAZOLE 40 MG TABLET PO SCH (06:52)
--- NOTE | 2022-02-05 07:27 | P.PN ---
Subjective Progress Note Date: 02/03/22 Principal diagnosis: Endocarditis Patient is a 76-year old male with Enterococcus faecalis bacteremia secondary to bioprosthetic aortic valve endocarditis developing his rhythm abnormality concern for possible aortic root abscess for the patient was transferred to this facility, patient is status post temporary pacemaker placement by cardiology on 01/25/2022.Patient is status postcardiac cath completed on 01/27/2022 with evidence of moderate disease in mid RCA. Patient is status post excision of the previous 23 mm Inspiris pericardial bioprosthesis and debridement of the annulus, aortic valve replacement using a 21 mm Inspiris pericardial bioprosthesis completed on 01/31/2022 On today's evaluation that is 02/03/2022 the patient remains to be afebrile, the patient is breathing comfortably on room air, patient chest pain is currently controlled, the patient denies any nausea no vomiting no abdominal pain, and no diarrhea has been reported Objective - Vital Signs Vital signs: Vital Signs Temp 98.1 F 02/03/22 13:00 Pulse 80 02/03/22 15:25 Resp 20 02/03/22 15:00 BP 151/77 02/03/22 15:00 Pulse Ox 96 02/03/22 15:14 FiO2 50 01/31/22 17:00 Intake & Output 02/02/22 02/03/22 02/03/22 18:59 06:59 18:59 Intake Total 5685.163 9549 1558 Output Total 380 505 740 Balance 9942.593 5695 818 Weight 103.7 kg Intake: IV 462 462 258 Ampicillin 100 Ampicillin 2,000 mg In 100 Sodium Chloride 0.9% 100 ml @ 200 mls/hr IVPB Q4HR [facility] Rx#:[id number] PRESSURE BAG (Sodium 72 72 48 Chloride 0.9) Sodium Chloride 0.9% 1, 240 240 160 000 ml @ 20 mls/hr IV . Q24H [facility] Rx#:[id number] cefTRIAXone 2 gm In 50 50 50 Sodium Chloride 0.9% 50 ml @ 100 mls/hr IVPB Q12HR [facility] Rx#:[id number] Intake, IV Titration 137.884 100 100 Amount Ampicillin 2,000 mg In 100 100 100 Sodium Chloride 0.9% 100 ml @ 200 mls/hr IVPB Q6H [facility] Rx#:[id number] Insulin Regular 100 unit 37.884 In Sodium Chloride 0.9% 100 ml @ Per Protocol IV .Q0M [facility] Rx#:[id number] Oral 480 6652 840 Blood Product 310 310 Rc As-1 Unit 310 [id number] Rc As-1 Unit 310 [id number] Other 50 50 Rc As-1 Unit 50 [id number] Rc As-1 Unit 50 [id number] Output: Chest Tube Drainage 20 Chest Tube Bilateral 10 Mediastinal Chest Tube Left Lateral 10 Chest Urine 360 505 740 Other: Voiding Method Indwelling Catheter Indwelling Catheter Indwelling Catheter ABP, PAP, CO, CI - Last Documented Arterial Blood Pressure 162/57 Pulmonary Artery Pressure 36/15 Cardiac Output 5.5 Cardiac Index 2.5 - Exam GENERAL DESCRIPTION: Elderly male up in the chair in no distress LUNGS: Unlabored breathing. Decreased breath sound at the base HEART: S1, S2, regular rate and rhythm. ABDOMEN: Soft, no tenderness , guarding or rigidity, no organomegaly EXTREMITIES: No edema of feet. - Labs CBC & Chem 7: 02/05/22 04:10 02/05/22 04:10 Labs: Abnormal Lab Results - Last 24 Hours (Table) 02/02/22 02/02/22 02/02/22 Range/Units 05:05 16:45 19:57 RBC (4.30-5.90) m/uL Hgb (13.0-17.5) gm/dL Hct (39.0-53.0) % RDW (11.5-15.5) % Plt Count (150-450) k/uL Lymphocytes # (1.0-4.8) k/uL Sodium (137-145) mmol/L Carbon Dioxide (22-30) mmol/L BUN (9-20) mg/dL Creatinine (0.66-1.25) mg/dL Glucose (74-99) mg/dL POC Glucose (mg/dL) 240 H 252 H (70-110) mg/dL Hemoglobin A1c 7.2 H (0.0-6.0) % Calcium (8.4-10.2) mg/dL Total Protein (6.3-8.2) g/dL Albumin (3.5-5.0) g/dL Crossmatch 02/03/22 02/03/22 02/03/22 Range/Units 04:25 04:25 06:33 RBC 2.17 L (4.30-5.90) m/uL Hgb 6.7 L* (13.0-17.5) gm/dL Hct 20.6 L (39.0-53.0) % RDW 16.0 H (11.5-15.5) % Plt Count 136 L (150-450) k/uL Lymphocytes # 0.7 L (1.0-4.8) k/uL Sodium 131 L (137-145) mmol/L Carbon Dioxide 20 L (22-30) mmol/L BUN 31 H (9-20) mg/dL Creatinine 1.41 H (0.66-1.25) mg/dL Glucose 131 H (74-99) mg/dL POC Glucose (mg/dL) 141 H (70-110) mg/dL Hemoglobin A1c (0.0-6.0) % Calcium 7.7 L (8.4-10.2) mg/dL Total Protein 4.9 L (6.3-8.2) g/dL Albumin 2.8 L (3.5-5.0) g/dL Crossmatch 02/03/22 02/03/22 Range/Units 09:30 11:51 RBC (4.30-5.90) m/uL Hgb (13.0-17.5) gm/dL Hct (39.0-53.0) % RDW (11.5-15.5) % Plt Count (150-450) k/uL Lymphocytes # (1.0-4.8) k/uL Sodium (137-145) mmol/L Carbon Dioxide (22-30) mmol/L BUN (9-20) mg/dL Creatinine (0.66-1.25) mg/dL Glucose (74-99) mg/dL POC Glucose (mg/dL) 181 H (70-110) mg/dL Hemoglobin A1c (0.0-6.0) % Calcium (8.4-10.2) mg/dL Total Protein (6.3-8.2) g/dL Albumin (3.5-5.0) g/dL Crossmatch See Detail Microbiology - Last 24 Hours (Table) 01/31/22 14:04 Anaerobic Culture - Preliminary Other - Other Assessment and Plan (1) Endocarditis Current Visit: Yes Status: Acute Code(s): I38 - ENDOCARDITIS, VALVE UNSPECIFIED SNOMED Code(s): 86254734 Plan: 1-patient with Enterococcus faecalis bacteremia secondary to bioprosthetic aortic valve endocarditis now with development of complication with bradycardia arrhythmia concerning for aortic root abscess s/p temporary pacemaker placement And the patient is status postcardiac cath completed on 01/27/2022 in preparation for aortic valve surgery 2- patient is status post aortic valve replacement completed on 01/31/2022 culture are so for negative 3-patient to continue treatment of ampicillin and Rocephin and monitor clinical course closely Time with Patient: Less than 30
--- NOTE | 2022-02-05 07:30 | P.PN ---
Subjective Progress Note Date: 02/04/22 Principal diagnosis: Endocarditis Patient is a 76-year old male with Enterococcus faecalis bacteremia secondary to bioprosthetic aortic valve endocarditis developing his rhythm abnormality concern for possible aortic root abscess for the patient was transferred to this facility, patient is status post temporary pacemaker placement by cardiology on 01/25/2022.Patient is status postcardiac cath completed on 01/27/2022 with evidence of moderate disease in mid RCA. Patient is status post excision of the previous 23 mm Inspiris pericardial bioprosthesis and debridement of the annulus, aortic valve replacement using a 21 mm Inspiris pericardial bioprosthesis completed on 01/31/2022, the patient is status post external pacemaker placement as of 02/04/2022 On today's evaluation that is 02/04/2022 the patient continues to be afebrile, the patient is breathing comfortably on room air, patient chest pain is controlled with the current pain medication, the patient denies any nausea no vomiting no abdominal pain, and no diarrhea Objective - Vital Signs Vital signs: Vital Signs Temp 98.0 F 02/04/22 08:00 Pulse 80 02/04/22 09:00 Resp 16 02/04/22 09:00 BP 142/72 02/04/22 02:00 Pulse Ox 96 02/04/22 09:00 FiO2 50 01/31/22 17:00 Intake & Output 02/03/22 02/04/22 02/04/22 18:59 06:59 18:59 Intake Total 2001 1162 390 Output Total 1889 1025 680 Balance 112 137 -290 Weight 107.6 kg Intake: IV 362 562 390 Ampicillin 2,000 mg In 200 100 Sodium Chloride 0.9% 100 ml @ 200 mls/hr IVPB Q4HR [facility] Rx#:[id number] PRESSURE BAG (Sodium 72 72 30 Chloride 0.9) Sodium Chloride 0.9% 1, 240 240 60 000 ml @ 20 mls/hr IV . Q24H [facility] Rx#:[id number] cefTRIAXone 2 gm In 50 50 50 Sodium Chloride 0.9% 50 ml @ 100 mls/hr IVPB Q12HR [facility] Rx#:[id number] Intake, IV Titration 200 Amount Ampicillin 2,000 mg In 200 Sodium Chloride 0.9% 100 ml @ 200 mls/hr IVPB Q6H [facility] Rx#:[id number] Oral 1080 600 Blood Product 310 Rc As-1 Unit 310 [id number] Other 50 Rc As-1 Unit 50 [id number] Output: Urine 1890 1025 680 Other: Voiding Method Indwelling Catheter Indwelling Catheter Indwelling Catheter ABP, PAP, CO, CI - Last Documented Arterial Blood Pressure 170/47 Pulmonary Artery Pressure 36/15 Cardiac Output 5.5 Cardiac Index 2.5 - Exam GENERAL DESCRIPTION: Elderly male up in the chair in no distress LUNGS: Unlabored breathing. Decreased breath sound at the base HEART: S1, S2, regular rate and rhythm. ABDOMEN: Soft, no tenderness , guarding or rigidity, no organomegaly EXTREMITIES: No edema of feet. - Labs CBC & Chem 7: 02/05/22 04:10 02/05/22 04:10 Labs: Abnormal Lab Results - Last 24 Hours (Table) 02/03/22 02/03/22 02/03/22 Range/Units 09:30 16:53 16:55 RBC 2.56 L (4.30-5.90) m/uL Hgb 7.9 L (13.0-17.5) gm/dL Hct 23.5 L (39.0-53.0) % RDW 16.1 H (11.5-15.5) % Plt Count 141 L (150-450) k/uL Lymphocytes # 0.6 L (1.0-4.8) k/uL Sodium (137-145) mmol/L Carbon Dioxide (22-30) mmol/L BUN (9-20) mg/dL Glucose (74-99) mg/dL POC Glucose (mg/dL) 203 H (70-110) mg/dL Calcium (8.4-10.2) mg/dL Magnesium (1.6-2.3) mg/dL Crossmatch See Detail 02/03/22 02/04/22 02/04/22 Range/Units 20:34 04:40 04:40 RBC 2.42 L (4.30-5.90) m/uL Hgb 7.8 L (13.0-17.5) gm/dL Hct 22.6 L (39.0-53.0) % RDW 15.8 H (11.5-15.5) % Plt Count 140 L (150-450) k/uL Lymphocytes # (1.0-4.8) k/uL Sodium 130 L (137-145) mmol/L Carbon Dioxide 20 L (22-30) mmol/L BUN 27 H (9-20) mg/dL Glucose 114 H (74-99) mg/dL POC Glucose (mg/dL) 183 H (70-110) mg/dL Calcium 7.8 L (8.4-10.2) mg/dL Magnesium 2.6 H (1.6-2.3) mg/dL Crossmatch 02/04/22 02/04/22 Range/Units 07:15 11:56 RBC (4.30-5.90) m/uL Hgb (13.0-17.5) gm/dL Hct (39.0-53.0) % RDW (11.5-15.5) % Plt Count (150-450) k/uL Lymphocytes # (1.0-4.8) k/uL Sodium (137-145) mmol/L Carbon Dioxide (22-30) mmol/L BUN (9-20) mg/dL Glucose (74-99) mg/dL POC Glucose (mg/dL) 130 H 125 H (70-110) mg/dL Calcium (8.4-10.2) mg/dL Magnesium (1.6-2.3) mg/dL Crossmatch Microbiology - Last 24 Hours (Table) 01/31/22 14:03 Gram Stain - Preliminary Other - Other Tissue Culture - Preliminary Group D Enterococcus 01/31/22 14:04 Gram Stain - Final Other - Other Tissue Culture - Final Enterococcus faecalis 01/31/22 14:03 Anaerobic Culture - Preliminary Other - Other Assessment and Plan (1) Endocarditis Current Visit: Yes Status: Acute Code(s): I38 - ENDOCARDITIS, VALVE UNSPECIFIED SNOMED Code(s): 65363994 Plan: 1-patient with Enterococcus faecalis bacteremia secondary to bioprosthetic aortic valve endocarditis now with development of complication with bradycardia arrhythmia concerning for aortic root abscess s/p temporary pacemaker placement And the patient is status postcardiac cath completed on 01/27/2022 in preparation for aortic valve surgery 2- patient is status post aortic valve replacement completed on 01/31/2022 culture positive for Enterococcus faecalis sensitive to penicillin, patient is status post external pacemaker placement because of heart block 3-patient to continue with ampicillin and Rocephin and continue supportive care Time with Patient: Less than 30
[2022-02-05] MEDS ORDERED: FUROSEMIDE 10 MG/ML 2 ML VIAL IV ONE (08:02)
[2022-02-05] MEDS: guaiFENesin 600 MG TABLET.ER PO SCH ×2 (08:17→20:21)
[2022-02-05] MEDS: hydrALAZINE HCL 50 MG TAB PO SCH ×2 (08:18→20:21)
[2022-02-05] MEDS: ASPIRIN 325 MG TAB PO SCH (08:19)
[2022-02-05] MEDS: ATORVASTATIN 40 MG TAB PO SCH (08:19)
[2022-02-05] MEDS: allopurinoL 100 MG TAB PO SCH (08:19)
[2022-02-05] MEDS: FINASTERIDE 5 MG TAB PO SCH (08:21)
[2022-02-05] MEDS: polyethylene glycoL 3350 17 GM POWD.PACK PO SCH (08:21)
[2022-02-05] MEDS: DOXAZOSIN 4 MG TAB PO SCH ×2 (08:21→20:21)
[2022-02-05] MEDS: ACETYLCYSTEINE 800 MG/4 ML VIAL INHALATION SCH ×5 (08:21→20:55)
[2022-02-05] MEDS: CLOTRIMAZOLE 1% CREAM 30 GM TUBE TOPICAL SCH ×2 (08:23→20:24)
[2022-02-05] MEDS ORDERED: bisacodyL 10 MG SUPP RECTAL STA (08:36)
--- NOTE | 2022-02-05 08:37 | P.PN ---
Subjective Progress Note Date: 02/05/22 The patient is a 76-year-old male follows in the office with Dr. Cárdenas. He presented to [facility] on 01/17/2022 with mental status changes and was found to have infective endocarditis. TVP was placed for second-degree heart block. On 01/31/2022 he underwent redo aortic valve replacement with Dr. Lopez. Postoperatively the patient has been pacemaker dependent with third- degree heart block. He underwent externalized pacemaker implantation with Dr. Scruggs on 02/04/2022. The patient was interviewed and examined sitting comfortably in the recliner chair. He complains of being weak and tired this morning. He states he did not sleep well. He denies any chest pain or chest pressure. No dizziness when standing. GENERAL: Well-appearing, well-nourished and in no acute distress. NECK: Supple without JVD or thyromegaly. LUNGS: Breath sounds clear to auscultation bilaterally. Respiration equal and unlabored. Bilateral expiratory wheezes HEART: Regular rate and rhythm without rubs or gallops. S1 and S2 heard. Systolic murmur. Sternal incision approximated. EXTREMITIES: Normal range of motion, mild generalized edema. No clubbing or cyanosis. Peripheral pulses intact and strong. VITALS: Blood pressure 129/74, pulse 80, respiratory rate 25, SpO2 98% on 2 L nasal cannula TELEMETRY: Ventricular paced rhythm LABS: WBC 4.9, hemoglobin 7.8, hematocrit 23.1, platelet 153, sodium 136, potassium 4.3, BUN 18, creatinine 1.06 IMPRESSION: Infective endocarditis, enterococcus faecalis Redo aortic valve replacement Advanced heart block, status post pacemaker implantation History of coronary artery disease History of diabetes mellitus PLAN: Pacemaker dressing changes to be completed by Dr. Scruggs only Recommend aggressive pulmonary hygiene Recommend ambulation Further recommendations to be based on clinical course I am dictating on behalf of Dr Grey Scruggs's history/physical and assessment/plan. Objective - Vital Signs Vital signs: Vital Signs Temp 97.8 F 02/05/22 08:00 Pulse 80 02/05/22 07:30 Resp 87 H 02/05/22 08:00 BP 129/74 02/05/22 08:00 Pulse Ox 98 02/05/22 08:00 FiO2 50 01/31/22 17:00 Intake & Output 02/04/22 02/05/22 02/05/22 18:59 06:59 18:59 Intake Total 826 998 246 Output Total 1230 1365 30 Balance -404 -367 216 Weight 107.6 kg 112.7 kg Intake: IV 706 518 126 Ampicillin 2,000 mg In 100 Sodium Chloride 0.9% 100 ml @ 200 mls/hr IVPB Q4HR [facility] Rx#:[id number] Ampicillin 2,000 mg In 200 300 100 Sodium Chloride 0.9% 100 ml @ 200 mls/hr IVPB Q4HR [facility] Rx#:[id number] PRESSURE BAG (Sodium 66 78 6 Chloride 0.9) Sodium Chloride 0.9% 1, 140 40 20 000 ml @ 20 mls/hr IV . Q24H [facility] Rx#:[id number] cefTRIAXone 2 gm In 50 100 Sodium Chloride 0.9% 50 ml @ 100 mls/hr IVPB Q12HR [facility] Rx#:[id number] Oral 120 480 120 Output: Urine 1230 1365 30 Other: Voiding Method Indwelling Catheter ABP, PAP, CO, CI - Last Documented Arterial Blood Pressure 148/5 Pulmonary Artery Pressure 36/15 Cardiac Output 5.5 Cardiac Index 2.5 - Labs CBC & Chem 7: 02/05/22 04:10 02/05/22 04:10 Labs: Abnormal Lab Results - Last 24 Hours (Table) 02/04/22 02/04/22 02/05/22 Range/Units 11:56 20:19 04:10 RBC 2.43 L (4.30-5.90) m/uL Hgb 7.8 L (13.0-17.5) gm/dL Hct 23.1 L (39.0-53.0) % RDW 15.9 H (11.5-15.5) % Sodium (137-145) mmol/L POC Glucose (mg/dL) 125 H 136 H (70-110) mg/dL Calcium (8.4-10.2) mg/dL 02/05/22 Range/Units 04:10 RBC (4.30-5.90) m/uL Hgb (13.0-17.5) gm/dL Hct (39.0-53.0) % RDW (11.5-15.5) % Sodium 136 L (137-145) mmol/L POC Glucose (mg/dL) (70-110) mg/dL Calcium 7.7 L (8.4-10.2) mg/dL Microbiology - Last 24 Hours (Table) 01/31/22 14:04 Anaerobic Culture - Final Other - Other 01/31/22 14:03 Gram Stain - Preliminary Other - Other Tissue Culture - Preliminary Group D Enterococcus
[2022-02-05] MEDS: SYMBICORT 160-4.5 MCG INHALER INHALATION SCH ×2 (08:45→20:55)
[2022-02-05] MEDS: IPRATROPIUM-ALBUTEROL 3 ML NEB INHALATION SCH ×4 (08:46→20:55)
--- NOTE | 2022-02-05 08:47 | XR ---
EXAMINATION TYPE: XR chest 1V portable DATE OF EXAM: 02/05/2022 COMPARISON: 02/04/2022 HISTORY: Post cardiac surgery TECHNIQUE: Single frontal view of the chest is obtained. FINDINGS: Postoperative changes with right-sided cardiomegaly overlying the right there is bilateral infiltrate and pleural effusion with diffuse interstitial pattern. Suggestion of vascular sheath ove rlying the right. No pneumothorax. Hypertrophic changes of the spine. IMPRESSION: 1. Bilateral infiltrate and pleural effusion correlate CHF.
--- NOTE | 2022-02-05 08:56 | P.PN ---
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 History of severe aortic valve stenosis status post aortic valve replacement with a 23 mm Inspiris bioprosthetic aortic valve in November 2017, CAD with mid RCA stenosis 50% and previous PCI in 2018, hypertension, hyperlipidemia, insulin-dependent diabetes mellitus type 2, obesity, obstructive sleep apnea without CPAP use, moderate COPD, asthma, previous tobacco dependence, benign prostatic hypertrophy, UTIs with pseudomonas in 01/2020, gout, bilateral internal carotid stenosis 50-70% POD #5 redo sternotomy, excision of the previous 23 mm Inspiris pericardial bioprosthesis and debridement of the annulus, aortic valve replacement using a 21 mm Inspiris pericardial bioprosthesis Postoperative acute blood loss anemia, expected given hemodilution and cardiopulmonary bypass pump POD #1 externalized pacemaker implant via right axillary vein by Dr. Scruggs The patient was seen and examined sitting up in a recliner in the intensive care unit in no acute distress. He remains paced at 80 bpm, hemodynamically stable on no inotropes or pressors. He denies pain or shortness of breath, his only complaint right now is being extremely tired as he is not sleeping at night as well as weakness. Right internal jugular Cordis, right radial arterial line remain present. Patient needs lots of encouragement for any activity. Patient had external pacemaker placed yesterday, will have permanent pacemaker placed by Dr. Scruggs after completion of IV antibiotics. Long discussion had with patient, his , and his daughter about discharge planning, anticipates need for inpatient rehab at discharge due to medical debility requiring daily physician visits, lab work, and monitoring of pacemaker device insertion site with dressing to be changed by Dr. Scruggs only. No other new concerns. Objective - Vital Signs Vital signs: Vital Signs Temp 97.8 F 02/05/22 08:00 Pulse 80 02/05/22 07:30 Resp 87 H 02/05/22 08:00 BP 129/74 02/05/22 08:00 Pulse Ox 98 02/05/22 08:00 FiO2 50 01/31/22 17:00 Intake & Output 02/04/22 02/05/22 02/05/22 18:59 06:59 18:59 Intake Total 826 998 246 Output Total 1230 1365 30 Balance -404 -367 216 Weight 107.6 kg 112.7 kg Intake: IV 706 518 126 Ampicillin 2,000 mg In 100 Sodium Chloride 0.9% 100 ml @ 200 mls/hr IVPB Q4HR [facility] Rx#:[id number] Ampicillin 2,000 mg In 200 300 100 Sodium Chloride 0.9% 100 ml @ 200 mls/hr IVPB Q4HR [facility] Rx#:[id number] PRESSURE BAG (Sodium 66 78 6 Chloride 0.9) Sodium Chloride 0.9% 1, 140 40 20 000 ml @ 20 mls/hr IV . Q24H [facility] Rx#:[id number] cefTRIAXone 2 gm In 50 100 Sodium Chloride 0.9% 50 ml @ 100 mls/hr IVPB Q12HR [facility] Rx#:[id number] Oral 120 480 120 Output: Urine 1230 1365 30 Other: Voiding Method Indwelling Catheter ABP, PAP, CO, CI - Last Documented Arterial Blood Pressure 148/5 Pulmonary Artery Pressure 36/15 Cardiac Output 5.5 Cardiac Index 2.5 - Exam CONSTITUTIONAL: Appears comfortable, cooperative, no acute distress RESPIRATORY: Lungs sounds diminished bilaterally. Respirations even, nonlabored. Currently on room air with oxygen saturation 93%. Able to achieve 1300 mL on incentive spirometry. Strong cough. CARDIOVASCULAR: S1, S2 present. Regular rate and rhythm, 100% AV paced on telemetry at 80 bpm. Sternum stable. Palpable peripheral pulses bilaterally. Trace generalized edema present. No calf pain or tenderness noted. Heart hugger in place with patient demonstrating appropriate use. Antiembolism stockings, SCDs present. GASTROINTESTINAL: Abdomen soft, nontender, slightly distended, tympanic sounds to percussion. Active bowel sounds present 4 quadrants. Tolerating diet. Positive flatus, no bowel movement since surgery GENITOURINARY: Hargrove present draining clear, yellow urine. Output overnight 50-180 mL per hour, 2565 mL in the last 24 hours INTEGUMENTARY: Skin is warm and dry with evidence of good perfusion. Anterior chest incision well approximated. Right anterior chest pacemaker insertion site covered with dry intact dressing NEUROLOGIC: Cranial nerves II through XII intact MUSKULOSKELETAL: Able to move all extremities, strength equal bilaterally, generalized weakness present PSYCHIATRIC: Alert and oriented to person place and time, flat affect, intact judgment and insight INVASIVE LINES AND TUBES: A/V epicardial pacemaker wires present, grounded. External pacemaker present, dressing dry and intact. Right internal jugular Cordis, right radial arterial line present. - Allied health notes Allied health notes reviewed: nursing - Labs CBC & Chem 7: 02/05/22 04:10 02/05/22 04:10 Labs: Abnormal Lab Results - Last 24 Hours (Table) 02/04/22 02/04/22 02/05/22 Range/Units 11:56 20:19 04:10 RBC 2.43 L (4.30-5.90) m/uL Hgb 7.8 L (13.0-17.5) gm/dL Hct 23.1 L (39.0-53.0) % RDW 15.9 H (11.5-15.5) % Sodium (137-145) mmol/L POC Glucose (mg/dL) 125 H 136 H (70-110) mg/dL Calcium (8.4-10.2) mg/dL 02/05/22 Range/Units 04:10 RBC (4.30-5.90) m/uL Hgb (13.0-17.5) gm/dL Hct (39.0-53.0) % RDW (11.5-15.5) % Sodium 136 L (137-145) mmol/L POC Glucose (mg/dL) (70-110) mg/dL Calcium 7.7 L (8.4-10.2) mg/dL Microbiology - Last 24 Hours (Table) 01/31/22 14:04 Anaerobic Culture - Final Other - Other 01/31/22 14:03 Gram Stain - Preliminary Other - Other Tissue Culture - Preliminary Group D Enterococcus - Imaging and Cardiology Chest x-ray: image reviewed Assessment and Plan Assessment: 1. 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 Bacteremia with enterococcus faecalis, blood cultures currently negative to date 3. Moderate mitral valve regurgitation 4. Altered mental status present on admission, resolved 5. History of severe aortic valve stenosis status post aortic valve replacement with a 23 mm Inspiris bioprosthetic aortic valve in November 2017 6. CAD with mid RCA stenosis 50% and previous PCI in 2018 7. Hypertension 8. Hyperlipidemia, treated, cholesterol 86, LDL 39 9. Insulin-dependent diabetes mellitus type 2, preoperative hemoglobin A1c 7.8% 10. Obesity 11. Obstructive sleep apnea without CPAP use 12. Moderate COPD, FEV1 59% of predicted 13. Asthma 14. Previous tobacco dependence 15. Benign prostatic hypertrophy, currently on Flomax, Cardura, Proscar 16. UTIs with pseudomonas in 01/2020 17. Gout 18. Bilateral internal carotid stenosis 50-70% 19. Postoperative acute blood loss anemia, expected given hemodilution and cardiopulmonary bypass pump Plan: 1. Continue to maximize medical therapy with aspirin, statin, Plavix, hydralazine. 2. Encourage use of his incentive spirometry 10 times every hour while awake. Bronchodilators per pulmonology 3. Increase activity, ambulate as tolerated. PT/OT/cardiac rehab following. Patient needs lots of encouragement. Patient may not lift his right arm above the level of his heart due to pacemaker 4. Will monitor daily labs and x-rays. Electrolyte replacement per protocol. Will give 20 mg IV push Lasix today 5. Continue ampicillin and Rocephin per infectious disease recommendations. 6. GI and DVT prophylaxis 7. Pain control current medication regimen. 8. Insulin management per primary care service 9. Patient will have permanent pacemaker placement by Dr. Scruggs once he is off IV antibiotics. Will discuss with Dr. Cunningham. Dressing over the externalized pacemaker to be changed by Dr. Scruggs only 10. Will discontinue epicardial pacemaker wires tomorrow, leave grounded today 11. Will discontinue cordis after midline catheter placed today 12. Will discontinue Hargrove catheter this afternoon after diuresis from Lasix, may bladder scan and straight cath for greater than 300 mL residual 13. Strict accurate intake and output. Daily weights 14. Discharge planning in progress, anticipate discharge to [facility] inpatient rehab by the end of the week 15. More recommendations as patient progresses
--- NOTE | 2022-02-05 08:59 | P.PN ---
Subjective Progress Note Date: 02/05/22 02/04/2022, I'm seeing the patient for a follow-up. The patient is postoperative placement and the patient was found also to have an infective endocarditis. The patient is postop day #3 following a noted murmur placement. He had infective endocarditis in the preop blood cultures were negative. The tissue culture from the valve sternotomy positive for enterococcus and the patient is currently on IV Unasyn. The chest x-ray from today shows hepatomegaly and some microvessel congestion. Chest tubes at all removed. No fever. No chills. Is using the incentive spirometer and is pulling approximately 1000. The patient has an underlying cardiac rhythm that is third-degree AV block and the patient will need a pacemaker insertion. Urine output is adequate for now. The patient's has a white cell count of 6.8 with a hemoglobin of 7.8 and the sugar of 114. Platelet count is on 140. Magnesium is 2.6 with a ionized calcium of 4.9. Awake. Alert. His current [place] oxygen. Communicating. He has a right IJ Cordis and he still has an arterial line in his right upper extremity. 02/05/2022, the patient is postop day #5. Doing well. No specific complaints. Room air oxygen with a pulse ox of 99%. Chest x-ray from today is showing cardiomegaly, atelectatic changes in the lung base bilaterally, Ana vessel congestion and small amount of effusion or son the left. The patient has a PICC line in his right upper extremity. The sternotomy wires are also seen. As far as his cardiac rhythm, he continues to be paced. The plan is to ultimately inserted today pacemaker for high degree AV block. He continues to use incentive spirometer. He is afebrile. He has enterococcus on his valve and the patient is currently on IV ampicillin 2 g every 4 hours/Rocephin. The white cell count of 4.9 with a hemoglobin of 7.8 and a platelet count of 153. Sodium is 136 with a BUN of 18 and a creatinine of 1.06. Objective - Vital Signs Vital signs: Vital Signs Temp 97.8 F 02/05/22 08:00 Pulse 80 02/05/22 08:46 Resp 87 H 02/05/22 08:00 BP 129/74 02/05/22 08:00 Pulse Ox 98 02/05/22 08:00 FiO2 50 01/31/22 17:00 Intake & Output 02/04/22 02/05/22 02/05/22 18:59 06:59 18:59 Intake Total 826 998 246 Output Total 1230 1365 30 Balance -404 -367 216 Weight 107.6 kg 112.7 kg Intake: IV 706 518 126 Ampicillin 2,000 mg In 100 Sodium Chloride 0.9% 100 ml @ 200 mls/hr IVPB Q4HR [facility] Rx#:[id number] Ampicillin 2,000 mg In 200 300 100 Sodium Chloride 0.9% 100 ml @ 200 mls/hr IVPB Q4HR [facility] Rx#:[id number] PRESSURE BAG (Sodium 66 78 6 Chloride 0.9) Sodium Chloride 0.9% 1, 140 40 20 000 ml @ 20 mls/hr IV . Q24H [facility] Rx#:[id number] cefTRIAXone 2 gm In 50 100 Sodium Chloride 0.9% 50 ml @ 100 mls/hr IVPB Q12HR [facility] Rx#:[id number] Oral 120 480 120 Output: Urine 1230 1365 30 Other: Voiding Method Indwelling Catheter ABP, PAP, CO, CI - Last Documented Arterial Blood Pressure 148/5 Pulmonary Artery Pressure 36/15 Cardiac Output 5.5 Cardiac Index 2.5 - Exam No acute distress, oriented 3. Currently on HEENT examination is grossly unremarkable. Neck supple. Full range of motion. No adenopathy thyromegaly or neck vein distention. Cardiovascular examination reveals regular rhythm rate. S1-S2 normal. No S3 or S4. Heart rate 87 bpm. Lungs reveal clear breath sounds. Breath sounds are equal bilaterally. No adventitious lung sounds including wheezes rhonchi or crackles. Saturations on 2 L are 96 %. Abdomen soft bowel sounds are heard. No masses or tenderness. Extremities are intact. No cyanosis clubbing or edema. Skin is without rash or lesion. Neurologic examination is brief but nonfocal. - Labs CBC & Chem 7: 02/05/22 04:10 02/05/22 04:10 Labs: Abnormal Lab Results - Last 24 Hours (Table) 02/04/22 02/04/22 02/05/22 Range/Units 11:56 20:19 04:10 RBC 2.43 L (4.30-5.90) m/uL Hgb 7.8 L (13.0-17.5) gm/dL Hct 23.1 L (39.0-53.0) % RDW 15.9 H (11.5-15.5) % Sodium (137-145) mmol/L POC Glucose (mg/dL) 125 H 136 H (70-110) mg/dL Calcium (8.4-10.2) mg/dL 02/05/22 Range/Units 04:10 RBC (4.30-5.90) m/uL Hgb (13.0-17.5) gm/dL Hct (39.0-53.0) % RDW (11.5-15.5) % Sodium 136 L (137-145) mmol/L POC Glucose (mg/dL) (70-110) mg/dL Calcium 7.7 L (8.4-10.2) mg/dL Microbiology - Last 24 Hours (Table) 01/31/22 14:04 Anaerobic Culture - Final Other - Other 01/31/22 14:03 Gram Stain - Preliminary Other - Other Tissue Culture - Preliminary Group D Enterococcus Assessment and Plan Plan: Postoperative day #5, status post redo sternotomy, extraction of previous prosthetic aortic valve, and replacement with a 21 mm pericardial bioprosthesis aortic valve. Postthoracotomy. The patient is currently on room air oxygen. Surgical site is likely an intact Acute prosthetic aortic valve endocarditis, secondary to Enterococcus faecalis. The patient remains on IV ampicillin/rocephin Prior history of aortic valve replacement, 4 years ago for aortic stenosis. High-grade AV block, secondary to endocarditis. Acute encephalopathy, secondary to endocarditis and sepsis. History of COPD, stable. Essential hypertension. Type 2 diabetes mellitus. BPH. Seasonal ALLERGIC rhinitis. Plan: The patient is currently RA oxygen The patient is using the incentive spirometer Hemodynamically stable Cardiac rhythm is fairly high degree AV block and the patient will need a pacemaker insertion and this will be discussed with cardiology. The blood cultures are negative and the patient should be able to have a pacemaker inserted in 4-6 weeks Chest x-ray is essentially showing postsurgical changes. There is some mild pulmonary vascular congestion Continue Levemir insulin 24 units for blood sugar control in addition to NovoLog 5 units with meals Hydrocodone for pain control No beta blockers for now Keep in the ICU for another 24 hours and will continue to follow.
[2022-02-05] MEDS: LACTULOSE 20 GM/30 ML CUP PO SCH ×3 (09:11→20:22)
[2022-02-05] MEDS: MONTELUKAST 10 MG TAB PO SCH (09:11)
[2022-02-05] MEDS: TAMSULOSIN 0.4 MG CAP.ER.24H PO SCH (09:11)
--- NOTE | 2022-02-05 09:18 | P.PN ---
Subjective Progress Note Date: 02/05/22 HISTORY OF PRESENT ILLNESS This is a 76-year-old male patient with past medical history of hypertension with hypertensive cardiovascular disease, hyperlipidemia, diabetes mellitus type 2 with diabetic polyneuropathy, enlarged prostate, history of aortic valve disease status post aortic valve replacement with a 23 mm valve on 12/04/2017, prior to that, left heart catheterization revealed 30-40% stenosis in the RCA in 2018, history of melanoma status post resection 12/07/2021, from the back. Patient initially presented to [facility] with mental status changes with significant encephalopathy. CAT scan of the brain did not show any acute infarct or bleed. Patient did have leukocytosis and low-grade fever. He is status post IV fluid resuscitation, he was started on IV antibiotics initially in the form of Levaquin and subsequently changed to ampicillin and ce ftriaxone by Dr. Cunningham. EKG did not show any evidence of acute changes. CAT scan of the chest abdomen and pelvis showed some perinephric stranding without evidence of hydronephrosis, there was evidence of diverticulosis without diverticulitis. CAT scan of the chest showed evidence of cardiomegaly with bilateral pleural effusion and possible pulmonary fibrosis. CAT scan of the cervical spine did show evidence of spondylosis of cervical spine without evidence of fracture. CAT scan of the brain showed brain atrophy without evidence of acute infarct or bleed, small vessel disease present. Patient was initially admitted to [facility] where he was followed by infectious disease as well as cardiology. He underwent a REESE on 01/22 revealed left ventricular systolic function normal at 55-60%, small aortic valve vegetation was present measuring 0.53 cm. Patient has bioprosthetic aortic valve. Moderate MR, [id number] tricuspid regurgitation, no pericardial effusion. Patients blood cultures were positive for enterococcus species. Patient was in a sinus rhythm with a first-degree AV block but subsequently developed a high-grade AV block on 01/24 with progressive worsening of the AV block and PVCs. Patient is complaining of left lower rib cage chest discomfort. No palpitations or dizziness. Patient was then transferred to [facility] to be evaluated by cardiothoracic surgery team. Patient is seen today in the intensive care unit, consults added for cardiology, yoga coordinator, cardiothoracic surgery. 01/25: Patient is seen today in the ICU. He states he slept well last night. He states he is better able to take a deep breath with less pain on his left chest wall. He is able to reach 1500 MLS on incentive spirometry. He is complaining of tingling in bilateral feet. Has not had a bowel movement but feels that he needs to today. Senokot scheduled added. Blood sugar was low this morning and glimepiride decreased to 2 mg twice daily and Levemir decreased to 20 units. Patient has an external catheter in place draining clear emily urine. He has been evaluated by cardiology, cardiothoracic surgery and yoga coordinator. Cardiology is planning for temporary pacemaker. C plan to continue close monitoring in the intensive care unit, monitor results of the blood cultures.hest x-ray reveals postoperative changes similar to prior exam. There may be some interstitial changes. Carotid ultrasound reveals slight elevated velocity in the internal carotid arteries bilaterally suggestive of 50-70 percent stenosis. There is antegrade flow in the vertebral arteries. Panorex CAT scan completed without any significant abnormalities. Arterial ultrasound bilateral lower extremities revealed normal ankle brachial indices. 01/26: Patient is lying down in bed in no acute distress, yesterday underwent temporary TVP for 2nd degree AV block, plan is to repeat REESE for further evaluation of possible abscess formation and the degree of involvement of the aortic ring of the bioprosthetic aortic valve, we will continue with IV Rocephin and Ampicillin for now, repeated blood cltures from 01/24/2022 still no growth so far, also nasal screen negative for MSSA.MRSA, bedside spirometer showed FEV2 38 % of predicted, we will continue with aggressive pulmonary toiletting, patient has been seen by multiple services , prognosis continues to be guarded, spoke with his daughter and his over the phone , they are contemplating if [facility] should [facility] or [facility], our cardiothoracic team is involved and hopefully will see patient today and alleviate his concerns and give their recommendations on surgical intervention. 01/28: The patient remains in the intensive care unit patient has been afebrile, heart rate 70s, blood pressure 157/77, pulse ox 94% on room air. monitor car operator is a paced rhythm. Cardiac catheterization, performed on 01/27, reveals moderate disease in the mid RCA, no evidence of high-grade stenosis in the LAD or left circumflex and placement of a temporary pacemaker. Patient will be seen by a dentist this afternoon. He is utilizing his incentive spirometry regularly and reaching 2000 2500. He is eating all of his food. He states he had a bowel movement yesterday and today. He is urinating without any difficulty. Patient is expecting to be seen by Dr. Lopez to discuss surgical options. WBC 6.4, hemoglobin 0.5, platelet count 235. BMP within normal limits. Calcium 8.2. Capillary blood glucose running between 126 and 196. Blood culture obtained on 01/24 showing no growth after 72 hours 1 specimen. 01/29: Patient was seen by the dentist yesterday and was cleared by surgery. He complains of dry mouth when he woke up this morning but otherwise no new complaints. monitor car operator is paced rhythm. Pulse ox 95% on room air. Blood pressure elevated 182/87. Hydrochlorothiazide 25 mg added to his blood pressure regime. Repeat blood work reveals WBC 5.3, hemoglobin 11.7, platelet count 230. Electrolytes and renal function normal. Capillary blood glucose running between 97-194. Patient is waiting to hear from the cardiothoracic team regarding plan for surgery. 01/30: Patient is scheduled for redo aortic valve replacement, possible aortic root replacement on 01/31. a consult was added for urology yesterday for recurrent UTIs. Patient denies dysuria, he is able to void spontaneously and is maintained on Flomax and Proscar. Dr. Farooq believes the culture from 2019 is contamination rather than actual UTI with history of phimosis contributing to positive culture. Plan to follow up with Dr. Emmanuel as normally scheduled. patient is continued on antibiotics the form of ampicillin and Rocephin. patient has remained afebrile. Pulse ox is 97% on room air. CM paced rhythm. Blood pressure 140/67 and has been improved overnight with addition of hydrochlorothiazide yesterday. Repeat blood work reveals WBC 6.1, hemoglobin 11.7, platelet count 237. Electrolytes and renal function are normal with creatinine of 1.08. White blood glucose running between 109 and 177. 01/31: Patient remains afebrile overnight with heart rate 49-54. Blood pressure 139/69 and pulse ox 94% on room air. Repeat blood work reveals WBC 5.0, hemoglobin 11.1, platelet count 246. Sodium 136, potassium 4.4, chloride 103, CO2 24, BUN 29 creatinine 1.05. Blood sugar 122. Capillary blood glucose running between 106 and 166. Patient is scheduled for redo aortic valve replacement today. 02/01: Patient is status post aortic valve replacement with bioprosthetic device. He remains in the intensive care unit. He was successfully extubated last evening and currently on 2 L nasal cannula with pulse ox of 97%. Heart rate is running in the 80s, blood pressure 114/60. monitor car operator is paced rhythm. Repeat blood work reveals WBC 6.3, hemoglobin 7.3, platelet count 150. Sodium 136, potassium 4.7, chloride 108, CO2 22, BUN 20 creatinine 1.17. Capillary blood glucose running between 110 and 127. Magnesium 2.6. Intraoperative tissue cultures are in process. Repeat chest x-ray reveals postoperative changes with bilateral infiltrate and small effusions. Patient has been started on Plavix, aspirin 325 mg daily, patient started on insulin drip, Levemir and Farxiga discontinued. The patient is complaining of sensation like urethral spasm like he has a urinary tract infection, Hargrove catheter is in place and draining. No hematuria. Patient states he is only sleeping a few minutes at a time. He does not have much appetite. 02/02 : Patient is feeling weak today , somewhat forgetful, did receive one unit of PRBC, chest tubes were removed and he will be switched to Levemir 24 units sc qhs and Novolog 5 units AC meals plus SSI and he will comeoff insulin drip, he continues to have dysuria, has Hargrove catheter in place and we will continue to have chronic phimosis that will require surgery down the line. 02/04: Patient is resting recliner in the ICU. He states he slept a little bit last night but is consistently not getting much sleep. He states he feels less short of breath today. He is complaining of needing to void but he continues to have a Hargrove catheter in place. He has not had a bowel movement for the last 3- 4 days. Lactulose added. He also states that he continues to have decreased appetite which may improve after having a bowel movement. Patient is scheduled for external pacemaker today with Dr Scruggs. monitor car operator is paced rhythm. He is currently on insulin 24 units of Levemir at bedtime along with 5 units of NovoLog with meals and NovoLog scale. Blood Glucose Running between 130 and 203. Repeat Blood Work Reveals WBC 6.2, Hemoglobin 7.8 up to 140. Sodium 130, Potassium 4.1, Chloride 102, CO2 20, BUN 27 Creatinine 1.15. Magnesium 2.6. Patient Received 1 Unit of Packed RBCs Yesterday. Tissue Culture Is Positive for Enterococcus Faecalis. Chest x-ray this morning reveals difficult to exclude pulmonary edema, pneumonia, atelectasis and possible associated effusion. Patient is reaching 1500 mL on incentive spirometry. 02/05: Patient states that he wishes that he felt better. He complains of hacking cough and wheezing and he had a nebulizer treatment a couple hours ago and states it did not help him. He also complains of not being able to sleep. He states he has not had a bowel movement despite multiple medications for bowel regime. Patient have a repeat Dulcolax suppository this morning and lactulose increased to 3 times daily. Hargrove catheter remains in place. Yesterday, patient underwent externalized temporary pacemaker implantation yesterday with Dr. 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 Patient will be able to be discharged with this device in place. Patient remains in the intensive care unit. He's been afebrile, heart rate in the 80s, blood pressure 129/74, pulse ox 98% on 2 L nasal cannula. Repeat blood work reveals WBC 4.9, hemoglobin 7.8, platelet count 153. Sodium 136 otherwise electrolytes and renal function are within normal limits. Calcium is 7.7. Capillary blood glucose running between 90-136. Repeat chest x-ray in pending. REVIEW OF SYSTEMS Constitutional: No fever, no chills, no night sweats. No weight change. No weakness, denies fatigue no lethargy. Reports daytime sleepiness. EENT: No headache. No blurred vision or double vision, no loss of vision. No loss of Hearing, no ringing in the ears, no dizziness. No nasal drainage or congestion. No epistaxis. No sore throat. Lungs: Reports mild shortness of breath improving, reports cough, no sputum production. Reports wheezing. Cardiovascular: Reports chest discomfort, no lower extremity edema. No palpit ations. No paroxysmal nocturnal dyspnea. No orthopnea. No lightheadedness or dizziness. No syncopal episodes. Abdominal: No abdominal pain. No nausea, vomiting. No diarrhea. No constipation. No bloody or tarry stools. Reports loss of appetite. Genitourinary: No dysuria, increased frequency, urgency. No urinary retention- Hargrove catheter in place. Musculoskeletal: No myalgias. No muscle weakness, no gait dysfunction, no frequent falls. No back pain. No neck pain. Integumentary: No wounds, no lesions. No rash or pruritus. No unusual bruising. Neurologic: No aphasia. No facial droop. No change in mentation. No head injury. No headache. No paralysis. No paresthesia. Psychiatric: No depression. No anxiety. No mood swings. Reports insomnia Endocrine: No abnormal blood sugars. No weight change. No excessive sweating or thirst. No cold intolerance. PHYSICAL EXAMINATION Gen: This is a 76-year-old male. He is resting in ICU in recliner and appears to be in no acute distress. HEENT: Head is atraumatic, normocephalic. Pupils equal, round. Sclerae is anicteric. NECK: Supple. No JVD. No lymphadenopathy. No thyromegaly. LUNGS: Decrease breath sounds at the bases No wheezes or rhonchi, sternotomy site is covered with dressing HEART: First heart sound is depressed, second heart sound is normal, aortic valve click, systolic ejection murmur 2/6 at the left sternal border. monitor car operator is paced rhythm. External pacemaker on the right anterior chest wall covered with dressing. ABDOMEN: Soft. Bowel sounds are present. No masses. No tenderness. EXTREMITIES: Trace pedal edema. No calf tenderness. Dorsalis pedis +2 bilaterally. Bilateral hand edema. NEUROLOGICAL: Patient is awake, alert and oriented x3. Cranial nerves 2 through 12 are grossly intact. Muscle power 4 out of 5 upper and lower extremities bilaterally. ASSESSMENT AND PLAN 1. POD #5 S/P Redo Sternotomy with excision of 23 mm Inspiris Pericardial Bioprosthetic Aortic valve and Placement of 21 Inspiris pericardial Bioprosthestic valve due to Infective endocarditis with Enterococcus fecalis awith Moderate AI, has been on IV Rocephin and Ampicillin . 2. Third degree AV block. has a temporary Pacemaker and is status post externa l temporary pacemaker 02/04. 3. Enterococcus Feacalis Endocarditis and bacteremia. we will continue with Rocephin 2 gr IVPB Q 12 hours and Ampicillin 2 gr IVPB Q 6 hours, ID team is following. 4. Hypertension with hypertensive cardiovascular disease. Continue patient on Hydralazine 50 mg po bid and Cardura 8 mg po bid. 5. Hyperlipidemia. Continue atorvastatin 40 mg at bedtime. 6. Diabetes mellitus type 2. we will transition from insulin drip into Levemir 24 units Sc qhs , Novolog 5 units AC meals tid along with SSI. 7. Benign prostatic hypertrophy. Continue Flomax 0.4 mg daily, continue finasteride 5 mg daily 8. 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 Continue patient on Symbicort 160- 4.5 g 2 puffs twice daily, albuterol nebulizer every 4 hours as needed for shortness of breath, reviewed bedside spirometery with FEV1 38 % of predicted. 9. ALLERGIC rhinitis. Continue Singulair 10 mg at bedtime. 10. Chronic gout. Continue allopurinol 100 mg daily. 11. DVT prophylaxis. Heparin 5000 units subcu every 8 hours. 12. GI prophylaxis. Protonix 40 mg daily. 13. Acute blood loss Anemia, S/P 1 units of PRBCs. 14. Medical debility. we ill require inpatient rehab. CODE STATUS: Full code. DISCHARGE PLAN Most likely Inpatient rehab. Impression and plan of care have been directed as dictated by the signing physician. Maria G Paez nurse practitioner acting as scribe for signing physician. Objective - Vital Signs Vital signs: Vital Signs Temp 97.8 F 02/05/22 08:00 Pulse 80 02/05/22 07:30 Resp 87 H 02/05/22 08:00 BP 129/74 02/05/22 08:00 Pulse Ox 98 02/05/22 08:00 FiO2 50 01/31/22 17:00 Intake & Output 02/04/22 02/05/22 02/05/22 18:59 06:59 18:59 Intake Total 826 998 246 Output Total 1230 1365 30 Balance -404 -367 216 Weight 107.6 kg 112.7 kg Intake: IV 706 518 126 Ampicillin 2,000 mg In 100 Sodium Chloride 0.9% 100 ml @ 200 mls/hr IVPB Q4HR [facility] Rx#:[id number] Ampicillin 2,000 mg In 200 300 100 Sodium Chloride 0.9% 100 ml @ 200 mls/hr IVPB Q4HR [facility] Rx#:[id number] PRESSURE BAG (Sodium 66 78 6 Chloride 0.9) Sodium Chloride 0.9% 1, 140 40 20 000 ml @ 20 mls/hr IV . Q24H [facility] Rx#:[id number] cefTRIAXone 2 gm In 50 100 Sodium Chloride 0.9% 50 ml @ 100 mls/hr IVPB Q12HR [facility] Rx#:[id number] Oral 120 480 120 Output: Urine 1230 1365 30 Other: Voiding Method Indwelling Catheter ABP, PAP, CO, CI - Last Documented Arterial Blood Pressure 148/5 Pulmonary Artery Pressure 36/15 Cardiac Output 5.5 Cardiac Index 2.5 - Labs CBC & Chem 7: 02/05/22 04:10 02/05/22 04:10 Labs: Abnormal Lab Results - Last 24 Hours (Table) 02/04/22 02/04/22 02/05/22 Range/Units 11:56 20:19 04:10 RBC 2.43 L (4.30-5.90) m/uL Hgb 7.8 L (13.0-17.5) gm/dL Hct 23.1 L (39.0-53.0) % RDW 15.9 H (11.5-15.5) % Sodium (137-145) mmol/L POC Glucose (mg/dL) 125 H 136 H (70-110) mg/dL Calcium (8.4-10.2) mg/dL 02/05/22 Range/Units 04:10 RBC (4.30-5.90) m/uL Hgb (13.0-17.5) gm/dL Hct (39.0-53.0) % RDW (11.5-15.5) % Sodium 136 L (137-145) mmol/L POC Glucose (mg/dL) (70-110) mg/dL Calcium 7.7 L (8.4-10.2) mg/dL Microbiology - Last 24 Hours (Table) 01/31/22 14:04 Anaerobic Culture - Final Other - Other 01/31/22 14:03 Gram Stain - Preliminary Other - Other Tissue Culture - Preliminary Group D Enterococcus
[2022-02-05 11:22] LABS: Glucose,Whole Blood 158 mg/dL (70-110)
--- NOTE | 2022-02-05 12:34 | P.PN ---
Subjective Progress Note Date: 02/05/22 Principal diagnosis: Endocarditis Patient is a 76-year old male with Enterococcus faecalis bacteremia secondary to bioprosthetic aortic valve endocarditis developing his rhythm abnormality concern for possible aortic root abscess for the patient was transferred to this facility, patient is status post temporary pacemaker placement by cardiology on 01/25/2022.Patient is status postcardiac cath completed on 01/27/2022 with evidence of moderate disease in mid RCA. Patient is status post excision of the previous 23 mm Inspiris pericardial bioprosthesis and debridement of the annulus, aortic valve replacement using a 21 mm Inspiris pericardial bioprosthesis completed on 01/31/2022, the patient is status post external pacemaker placement as of 02/04/2022 On today's evaluation that is 02/05/2022 the patient denies any fever or any chills, the patient is breathing comfortably on room air, patient chest pain is controlled with the current pain medication, the patient denies any nausea no vomiting no abdominal pain, and no diarrhea , mention feeling slightly exhausted Objective - Vital Signs Vital signs: Vital Signs Temp 97.6 F 02/05/22 12:00 Pulse 80 02/05/22 12:26 Resp 11 L 02/05/22 12:00 BP 116/63 02/05/22 12:00 Pulse Ox 98 02/05/22 12:00 FiO2 50 01/31/22 17:00 Intake & Output 02/04/22 02/05/22 02/05/22 18:59 06:59 18:59 Intake Total 826 998 411 Output Total 1230 1365 555 Balance -404 -367 -144 Weight 107.6 kg 112.7 kg Intake: IV 706 518 291 Ampicillin 2,000 mg In 100 Sodium Chloride 0.9% 100 ml @ 200 mls/hr IVPB Q4HR [facility] Rx#:[id number] Ampicillin 2,000 mg In 200 300 200 Sodium Chloride 0.9% 100 ml @ 200 mls/hr IVPB Q4HR [facility] Rx#:[id number] PRESSURE BAG (Sodium 66 78 21 Chloride 0.9) Sodium Chloride 0.9% 1, 140 40 20 000 ml @ 20 mls/hr IV . Q24H [facility] Rx#:[id number] cefTRIAXone 2 gm In 50 100 50 Sodium Chloride 0.9% 50 ml @ 100 mls/hr IVPB Q12HR [facility] Rx#:[id number] Oral 120 480 120 Output: Urine 1230 1365 555 Other: Voiding Method Indwelling Catheter ABP, PAP, CO, CI - Last Documented Arterial Blood Pressure 167/54 Pulmonary Artery Pressure 36/15 Cardiac Output 5.5 Cardiac Index 2.5 - Exam GENERAL DESCRIPTION: Elderly male up in the chair in no distress LUNGS: Unlabored breathing. Decreased breath sound at the base HEART: S1, S2, regular rate and rhythm. ABDOMEN: Soft, no tenderness , guarding or rigidity, no organomegaly EXTREMITIES: No edema of feet. - Labs CBC & Chem 7: 02/05/22 04:10 02/05/22 04:10 Labs: Abnormal Lab Results - Last 24 Hours (Table) 02/04/22 02/05/22 02/05/22 Range/Units 20:19 04:10 04:10 RBC 2.43 L (4.30-5.90) m/uL Hgb 7.8 L (13.0-17.5) gm/dL Hct 23.1 L (39.0-53.0) % RDW 15.9 H (11.5-15.5) % Sodium 136 L (137-145) mmol/L POC Glucose (mg/dL) 136 H (70-110) mg/dL Calcium 7.7 L (8.4-10.2) mg/dL 02/05/22 Range/Units 11:21 RBC (4.30-5.90) m/uL Hgb (13.0-17.5) gm/dL Hct (39.0-53.0) % RDW (11.5-15.5) % Sodium (137-145) mmol/L POC Glucose (mg/dL) 158 H (70-110) mg/dL Calcium (8.4-10.2) mg/dL Microbiology - Last 24 Hours (Table) 01/31/22 14:03 Gram Stain - Final Other - Other Tissue Culture - Final Enterococcus faecalis 01/31/22 14:03 Anaerobic Culture - Final Other - Other 01/31/22 14:04 Anaerobic Culture - Final Other - Other Assessment and Plan (1) Endocarditis Current Visit: Yes Status: Acute Code(s): I38 - ENDOCARDITIS, VALVE UNSP ECIFIED SNOMED Code(s): 90861784 Plan: 1-patient with Enterococcus faecalis bacteremia secondary to bioprosthetic aortic valve endocarditis now with development of complication with bradycardia arrhythmia concerning for aortic root abscess s/p temporary pacemaker placement And the patient is status postcardiac cath completed on 01/27/2022 in preparation for aortic valve surgery 2- patient is status post aortic valve replacement completed on 01/31/2022 culture positive for Enterococcus faecalis sensitive to penicillin, patient is status post external pacemaker placement because of heart block 3-patient to continue with ampicillin and Rocephin , plan is for 6 weeks of IV antibiotics from his surgery and closed out patient follow-up Time with Patient: Less than 30
[2022-02-05] MEDS ORDERED: polyethylene glycoL 3350 17 GM POWD.PACK PO PRN (13:55)
[2022-02-05 16:29] LABS: Glucose,Whole Blood 221 mg/dL (70-110)
[2022-02-05] MEDS: BENZOCAINE/MENTHOL LOZENG 1 EACH LOZENGE MUCOUS MEM PRN (16:29)
--- NOTE | 2022-02-05 17:07 | P.CONS ---
History of Present Illness - Chief Complaint Cardiac debility - History of Present Illness I had the opportunity to see patient for inpatient rehab consultation with regard to cardiac debility. Patient admitted to Dr. John Young, January 24 history of aVR November 2017. Seen by Dr. gonzalez for medical. Seen by Dr. Cunningham for vegetations. Seen by Dr. Morgan for pulmonary and ICU care. Seen by cardiology, patient known to them cardiomyopathy and CHF. On January 31 patient underwent redo sternotomy and aVR. Serial chest x-rays followed for bilateral infiltrates and effusions, CHF. His started therapies. PT reports minimal assist for bed mobility, transfer, gait 2 feet, hand-held. Note poor endurance and balance. OT reports independent with feeding, supervision for grooming, moderate assistance for upper dressing and, maximal assistance for bathing and total assist for lower dressing and toileting. Minimal assistance functional debility and toilet transfer. Previous functional history as elicited from patient: 76-year-old left-handed white male who is lives in second-floor flat with . does the laundry but they share the cooking and driving. Both are retired. Patient describes independent with standing shower, gait without device. PCP Dr. Gonzalez. History smoking in the remote past. Rare to occasional drink. Review of Systems Review of systems: ENT: Denies sneezes or discharge. Eyes: Denies discharge or photophobia. Cardiac: Mild sternal discomfort. Pulmonary: At least mild shortness of breath. Gastrointestinal: Denies nausea, emesis, constipation, diarrhea. Genitourinary: Denies discharge or frequency. Musculoskeletal: Denies muscle or bone aches. Neurologic: Generalized weakness. Endocrine: Denies shakes or sweats. Oncology: Denies cancers. Dermatologic: Denies rash, itching, pruritus. ALLERGY/immunology: Denies sneezes, rashes. Past Medical History Past Medical History: Asthma, Cancer, Diabetes Mellitus, Hyperlipidemia, Hypertension, Osteoarthritis (OA), Prostate Disorder Additional Past Medical History / Comment(s): AORTIC VALVE STENOSIS, HX SKIN CA melanoma removed from back November 2021 History of Any Multi-Drug Resistant Organisms: None Reported MDRO Source:: left leg 1961 Past Surgical History: Cardiac Valve Replacement, Heart Catheterization Additional Past Surgical History / Comment(s): left leg infection removed, Benign right breast tumor 1961; Aortic valve replaced [address] Lopez; m Past Anesthesia/Blood Transfusion Reactions: No Reported Reaction Past Psychological History: No Psychological Hx Reported Smoking Status: Former smoker Past Alcohol Use History: Occasional Additional Past Alcohol Use History / Comment(s): Quit 1992, smoked 1ppd from age 16, Past Drug Use History: None Reported - Past Family History Mother Family Medical History: Cancer, Congestive Heart Failure (CHF) Additional Family Medical History / Comment(s): renal, melanoma Father Family Medical History: Cancer Additional Family Medical History / Comment(s): melanoma Sister(s) Family Medical History: AFIB Brother(s) Family Medical History: No Reported History Daughter(s) Family Medical History: No Reported History Son(s) Family Medical History: No Reported History Medications and Allergies Home Medications Medication Instructions Recorded Confirmed Type Doxazosin Mesylate [Cardura] 8 mg PO BID 10/03/16 01/24/22 History Finasteride [Proscar] 5 mg PO DAILY 10/03/16 01/24/22 History Glimepiride [Amaryl] 4 mg PO BID 10/03/16 01/24/22 History Montelukast [Singulair] 10 mg PO DAILY 10/03/16 01/24/22 History Atorvastatin [Lipitor] 40 mg PO HS #30 tab 11/20/17 01/24/22 Rx Aspirin 325 mg PO DAILY #30 tab 12/08/17 01/24/22 Rx Albuterol Sulfate [Albuterol 1 puff PO RT-Q4H PRN 01/24/22 01/24/22 History Sulfate Hfa] Baclofen 10 mg PO BID PRN 01/24/22 01/24/22 History Calcium Carbonate [Calcium] 600 mg PO BID 01/24/22 01/24/22 History Clotrimazole/Betameth Cream 1 applic TOPICAL BID 01/24/22 01/24/22 History [Lotrisone] Dapagliflozin Propanediol [Farxiga] 10 mg PO DAILY 01/24/22 01/24/22 History Febuxostat [Uloric] 40 mg PO DAILY 01/24/22 01/24/22 History Fluticasone Propion/Salmeterol 2 puff INHALATION RT-BID 01/24/22 01/24/22 History [Advair Hfa 115-21 Mcg Inhaler] Furosemide [Lasix] 40 mg PO DAILY 01/24/22 01/24/22 History Insulin Glargine,Hum.rec.anlog 24 units SQ HS 01/24/22 01/24/22 History [Tawny Solostar] Losartan Potassium [Cozaar] 100 mg PO DAILY 01/24/22 01/24/22 History Magnesium 250 mg PO DAILY 01/24/22 01/24/22 History Pioglitazone [Actos] 30 mg PO DAILY 01/24/22 01/24/22 History Tamsulosin HCl [Flomax] 0.4 mg PO DAILY 01/24/22 01/24/22 History allopurinoL 100 mg PO DAILY 01/24/22 01/24/22 History amLODIPine [Norvasc] 5 mg PO BID 01/24/22 01/24/22 History hydrALAZINE HCL [Apresoline] 100 mg PO TID-W/MEALS 01/24/22 01/24/22 History Allergies Allergy/AdvReac Type Severity Reaction Status Date / Time No Known Allergies Allergy Verified 01/24/22 14:07 Physical Exam Vitals: Vital Signs Temp Pulse Pulse Resp BP Pulse Ox 02/05/22 16:29 90 02/05/22 16:19 80 02/05/22 16:00 97.6 F 79 19 148/72 95 02/05/22 15:00 85 14 129/60 96 02/05/22 14:00 81 10 L 126/56 93 L 02/05/22 13:00 87 15 124/94 95 02/05/22 12:38 80 02/05/22 12:26 80 02/05/22 12:00 97.6 F 84 11 L 116/63 98 02/05/22 11:15 80 12 93 L 02/05/22 11:00 80 18 113/61 94 L 02/05/22 10:45 86 19 158/74 95 02/05/22 10:30 82 12 93 L 02/05/22 10:15 79 18 92 L 02/05/22 10:00 80 34 H 96 02/05/22 09:30 95 32 H 165/102 95 02/05/22 09:00 89 12 139/67 96 02/05/22 08:58 81 02/05/22 08:46 80 02/05/22 08:30 79 12 129/74 97 02/05/22 08:00 97.8 F 87 H 129/74 98 02/05/22 07:30 80 8 L 151/68 95 02/05/22 07:00 80 14 96 02/05/22 06:30 82 25 H 151/68 98 02/05/22 06:00 80 26 H 93 L 02/05/22 05:34 84 02/05/22 05:30 79 17 98 02/05/22 05:23 79 02/05/22 05:00 83 13 94 L 02/05/22 04:30 79 14 94 L 02/05/22 04:00 98.2 F 79 80 14 93 L 02/05/22 03:30 80 13 93 L 02/05/22 03:00 80 23 94 L 02/05/22 02:30 79 14 94 L 02/05/22 02:00 80 12 95 02/05/22 01:30 81 18 95 02/05/22 01:00 80 26 H 94 L 02/05/22 00:30 88 18 134/79 92 L 02/05/22 00:09 79 14 94 L 02/05/22 00:00 97.9 F 80 14 95 02/04/22 23:49 80 02/04/22 23:30 80 20 93 L 02/04/22 23:00 79 20 95 02/04/22 22:30 80 12 96 02/04/22 22:00 80 13 97 02/04/22 21:30 79 20 98 02/04/22 21:00 79 20 97 02/04/22 20:30 79 18 143/87 98 02/04/22 20:00 98 F 78 80 12 95 02/04/22 19:30 80 11 L 120/74 95 02/04/22 19:23 82 02/04/22 19:12 80 02/04/22 19:00 82 11 L 143/66 95 02/04/22 18:30 79 15 134/79 96 02/04/22 18:00 79 20 129/82 98 02/04/22 17:30 79 12 143/87 94 L Intake and Output 02/05/22 02/05/22 02/05/22 06:59 14:59 22:59 Intake Total 274 431 40 Output Total 990 805 Balance -716 -374 40 Intake: IV 274 311 40 Ampicillin 2,000 mg In 200 200 Sodium Chloride 0.9% 100 ml @ 200 mls/hr IVPB Q4HR [facility] Rx#:[id number] PRESSURE BAG (Sodium 54 21 Chloride 0.9) Sodium Chloride 0.9% 1, 20 40 40 000 ml @ 20 mls/hr IV . Q24H [facility] Rx#:[id number] cefTRIAXone 2 gm In 50 Sodium Chloride 0.9% 50 ml @ 100 mls/hr IVPB Q12HR [facility] Rx#:[id number] Oral 120 Output: Urine 990 805 Other: Voiding Method Indwelling Catheter # Voids 1 # Bowel Movements 1 Weight 112.7 kg ABP, PAP, CO, CI - Last 8 Hours Arterial Blood Pressure 167/54 Arterial Blood Pressure 134/31 Arterial Blood Pressure 144/36 Arterial Blood Pressure 177/47 Results CBC & Chem 7: 02/05/22 04:10 02/05/22 04:10 Labs: Abnormal Lab Results - Last 24 Hours (Table) 02/04/22 02/05/22 02/05/22 Range/Units 20:19 04:10 04:10 RBC 2.43 L (4.30-5.90) m/uL Hgb 7.8 L (13.0-17.5) gm/dL Hct 23.1 L (39.0-53.0) % RDW 15.9 H (11.5-15.5) % Sodium 136 L (137-145) mmol/L POC Glucose (mg/dL) 136 H (70-110) mg/dL Calcium 7.7 L (8.4-10.2) mg/dL 02/05/22 02/05/22 Range/Units 11:21 16:27 RBC (4.30-5.90) m/uL Hgb (13.0-17.5) gm/dL Hct (39.0-53.0) % RDW (11.5-15.5) % Sodium (137-145) mmol/L POC Glucose (mg/dL) 158 H 221 H (70-110) mg/dL Calcium (8.4-10.2) mg/dL Microbiology - Last 24 Hours (Table) 01/31/22 14:03 Gram Stain - Final Other - Other Tissue Culture - Final Enterococcus faecalis 01/31/22 14:03 Anaerobic Culture - Final Other - Other 01/31/22 14:04 Anaerobic Culture - Final Other - Other Assessment and Plan (1) Endocarditis Current Visit: Yes Status: Acute Code(s): I38 - ENDOCARDITIS, VALVE UNSPECIFIED SNOMED Code(s): 09722097 (2) Chest pain Current Visit: No Status: Acute Code(s): R07.9 - CHEST PAIN, UNSPECIFIED SNOMED Code(s): 49643224 (3) Non-STEMI (non-ST elevated myocardial infarction) Current Visit: No Status: Acute Code(s): I21.4 - NON-ST ELEVATION (NSTEMI) MYOCARDIAL INFARCTION SNOMED Code(s): 01549091 (4) Rib fracture Current Visit: No Status: Acute Code(s): S22.39XA - FRACTURE OF ONE RIB, UNSP SIDE, INIT FOR CLOS FX SNOMED Code(s): 40361540 Plan: Comments and plan: At this time patient is started therapies. Safety concerns demonstrated. Patient demonstrated ability tolerate and benefit from therapies. Have discussed inpatient rehab and he is already anticipating this. Did discuss would need to present to patient's insurance for their approval prior to admission which actually reassured patient.
[2022-02-05] MEDS: SENNOSIDES-DOCUSATE SODIUM 1 EACH TAB PO SCH (20:21)
[2022-02-05] MEDS: INSULIN DETEMIR (LEVEMIR) 100 UNIT/ML SYR SQ SCH (20:21)
[2022-02-05] MEDS: MELATONIN 3 MG TABLET PO PRN (20:21)
[2022-02-05 20:32] LABS: Glucose,Whole Blood 177 mg/dL (70-110)
[2022-02-05] MEDS: ACETAMINOPHEN TAB 500 MG TAB PO PRN (21:33)
[2022-02-06 03:45] LABS: Anisocytosis Slight; HCT 22.4 % (39.0-53.0); Hypochromasia Moderate; MCH 30.3 pg (25.0-35.0); MCHC 31.3 g/dL (31.0-37.0); MCV 96.8 fL (80.0-100.0); Macrocytosis Slight; Mean Platelet Volume 8.8; Platelet Count 181 k/uL (150-450); Poikilocytosis Slight; RBC 2.31 m/uL (4.30-5.90); RDW 16.6 % (11.5-15.5)
[2022-02-06 03:57] LABS: Magnesium 2.8 mg/dL (1.6-2.3); Potassium 4.2 mmol/L (3.5-5.1)
[2022-02-06] MEDS: ACETAMINOPHEN TAB 500 MG TAB PO PRN ×3 (04:06→22:44)
[2022-02-06] MEDS: AMPICILLIN 2,000 MG in SODIUM CHLORIDE 0.9% 100 ML IVPB SCH ×6 (04:07→23:15)
[2022-02-06 07:03] LABS: Glucose,Whole Blood 177 mg/dL (70-110)
[2022-02-06] MEDS: ASCORBIC ACID 500 MG TAB PO SCH ×2 (07:03→16:42)
[2022-02-06] MEDS: INSULIN ASPART (NovoLOG) 100 UNIT/ML VIAL SQ SCH ×7 (07:03→20:33)
[2022-02-06] MEDS: PANTOPRAZOLE 40 MG TABLET PO SCH (07:03)
[2022-02-06] MEDS: FERROUS SULFATE 325 MG TAB PO SCH ×2 (07:04→16:42)
[2022-02-06] MEDS: ACETYLCYSTEINE 800 MG/4 ML VIAL INHALATION SCH ×4 (07:18→20:08)
[2022-02-06] MEDS: IPRATROPIUM-ALBUTEROL 3 ML NEB INHALATION SCH ×4 (07:18→20:09)
[2022-02-06] MEDS: SYMBICORT 160-4.5 MCG INHALER INHALATION SCH ×2 (07:18→20:08)
[2022-02-06] MEDS ORDERED: POTASSIUM CHLORIDE ER 10 MEQ TAB.ER.PRT PO STA (07:37)
[2022-02-06] MEDS ORDERED: FUROSEMIDE 10 MG/ML 4 ML VIAL IV STA (07:37)
--- NOTE | 2022-02-06 07:38 | P.PN ---
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 History of severe aortic valve stenosis status post aortic valve replacement with a 23 mm Inspiris bioprosthetic aortic valve in November 2017, CAD with mid RCA stenosis 50% and previous PCI in 2018, hypertension, hyperlipidemia, insulin-dependent diabetes mellitus type 2, obesity, obstructive sleep apnea without CPAP use, moderate COPD, asthma, previous tobacco dependence, benign prostatic hypertrophy, UTIs with pseudomonas in 01/2020, gout, bilateral internal carotid stenosis 50-70%. POD #6 redo sternotomy, excision of the previous 23 mm Inspiris pericardial bioprosthesis and debridement of the annulus, aortic valve replacement using a 21 mm Inspiris pericardial bioprosthesis Postoperative acute blood loss anemia, expected given hemodilution and cardiopulmonary bypass pump POD #2 externalized pacemaker implant via right axillary vein by Dr. Scruggs The patient was seen and examined in follow-up today 02/06/2022 at his bedside in the intensive care unit. Currently sitting up to bedside chair, is awake, alert, oriented 3 and is in no acute apparent distress. Oxygen saturations are 96% on room air and he is achieving 1250 mL on his incentive spirometry with encouragement. Bedside telemetry is showing ventricular paced rhythm at 80 BPM. He remains hemodynamically stable and is currently on no inotropic pressure support. A right upper cephalic vein midline was placed yesterday for outpatient antibiotic treatments. Atrial and ventricular epicardial pacemaker wires remained in place and are grounded. Dr. Morgan evaluated the patient yesterday for inpatient rehab placement, plan is for discharge to inpatient rehab on discharge. The patient reports she has been up ambulating in the intensive care unit hallway with standby assistance from nursing staff's morning. [place] catheter has been removed and the patient reports that he has been urinating without difficulty. 300 mL of urine output in the last 8 hours. Denies any complaints of pain or shortness of breath at this time, although was complaining of lack of sleep. Objective - Vital Signs Vital signs: Vital Signs Temp 97.4 F L 02/06/22 05:00 Pulse 80 02/06/22 05:00 Resp 21 02/06/22 06:11 BP 142/78 02/06/22 06:11 Pulse Ox 96 02/06/22 06:11 FiO2 50 01/31/22 17:00 Intake & Output 02/05/22 02/05/22 02/06/22 06:59 18:59 06:59 Intake Total 998 1081 450 Output Total 1365 805 425 Balance -367 276 25 Weight 112.7 kg Intake: IV 518 471 450 Ampicillin 2,000 mg In 300 300 300 Sodium Chloride 0.9% 100 ml @ 200 mls/hr IVPB Q4HR [facility] Rx#:[id number] PRESSURE BAG (Sodium 78 21 Chloride 0.9) Sodium Chloride 0.9% 1, 40 100 100 000 ml @ 20 mls/hr IV . Q24H [facility] Rx#:[id number] cefTRIAXone 2 gm In 100 50 50 Sodium Chloride 0.9% 50 ml @ 100 mls/hr IVPB Q12HR [facility] Rx#:[id number] Oral 480 610 Output: Urine 1365 805 425 Other: Voiding Method Urinal Urinal # Voids 1 0 # Bowel Movements 1 1 ABP, PAP, CO, CI - Last Documented Arterial Blood Pressure 167/54 Pulmonary Artery Pressure 36/15 Cardiac Output 5.5 Cardiac Index 2.5 - Exam CONSTITUTIONAL: Sitting to the bedside chair in the intensive care unit, appears comfortable, cooperative, no apparent acute distress. HEENT: Neck is supple, no JVD, no lymphadenopathy. RESPIRATORY: Lungs sounds essentially clear throughout, diminished to his bilateral bases. Respirations are symmetrical and nonlabored. Currently on room air with oxygen saturations 96%. Able to achieve 1250 mL on his incentive spirometry. Strong cough. CARDIOVASCULAR: Regular rhythm and rate. S1 and S2 present, negative for S3, gallop or murmur. Palpable peripheral pulses bilaterally, +1 generalized edema. No calf pain or tenderness noted. Sequential compression devices in place to his bilateral lower extremities. Telemetry showing 100% ventricular paced rhythm with a heart rate of 80 BPM. GASTROINTESTINAL: Abdomen soft, nontender, nondistended. Active bowel sounds present 4 quadrants. Tolerating diet. Passing flatus. No guarding or rigidity. Bowel movement yesterday 02/05/2022. GENITOURINARY: Continues to void. 300 mL of urine output in the last 8 hours. INTEGUMENTARY: Skin is warm and dry with no evidence of clubbing or cyanosis. Midline sternal incision is clean, dry and approximated. No redness or drainage present. Right upper anterior chest temporary pacemaker insertion site dressing clean, dry and intact. MUSKULOSKELETAL: Able to move all extremities, strength equal bilaterally, g eneralized weakness. PSYCHIATRIC: Alert and oriented to person place and time, appropriate affect, intact judgment and insight. INVASIVE LINES AND TUBES: A/V epicardial pacemaker wires present, grounded. External pacemaker present to right upper anterior chest, dressing dry and intact. Right arm midline IV in place and functioning. - Allied health notes Allied health notes reviewed: nursing - Labs CBC & Chem 7: 02/06/22 03:23 02/06/22 03:23 Labs: Abnormal Lab Results - Last 24 Hours (Table) 02/05/22 02/05/22 02/05/22 Range/Units 11:21 16:27 20:31 RBC (4.30-5.90) m/uL Hgb (13.0-17.5) gm/dL Hct (39.0-53.0) % RDW (11.5-15.5) % Sodium (137-145) mmol/L Glucose (74-99) mg/dL POC Glucose (mg/dL) 158 H 221 H 177 H (70-110) mg/dL Calcium (8.4-10.2) mg/dL Magnesium (1.6-2.3) mg/dL 02/06/22 02/06/22 Range/Units 03:23 03:23 RBC 2.31 L (4.30-5.90) m/uL Hgb 7.0 L (13.0-17.5) gm/dL Hct 22.4 L (39.0-53.0) % RDW 16.6 H (11.5-15.5) % Sodium 135 L (137-145) mmol/L Glucose 131 H (74-99) mg/dL POC Glucose (mg/dL) (70-110) mg/dL Calcium 8.0 L (8.4-10.2) mg/dL Magnesium 2.8 H (1.6-2.3) mg/dL Microbiology - Last 24 Hours (Table) 01/31/22 14:03 Gram Stain - Final Other - Other Tissue Culture - Final Enterococcus faecalis 01/31/22 14:03 Anaerobic Culture - Final Other - Other - Imaging and Cardiology Chest x-ray: report reviewed, image reviewed Assessment and Plan Assessment: 1. 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 Bacteremia with enterococcus faecalis, blood cultures currently negative to date. Final culture on the excised aortic valve showed enterococcus faecalis 3. Moderate mitral valve regurgitation 4. Altered mental status present on admission, resolved 5. History of severe aortic valve stenosis status post aortic valve replacement with a 23 mm Inspiris bioprosthetic aortic valve in November 2017 6. CAD with mid RCA stenosis 50% and previous PCI in 2018 7. Hypertension 8. Hyperlipidemia, treated, cholesterol 86, LDL 39 9. Insulin-dependent diabetes mellitus type 2, preoperative hemoglobin A1c 7.8% 10. Obesity 11. Obstructive sleep apnea without CPAP use 12. Moderate COPD, FEV1 59% of predicted 13. Asthma 14. Previous tobacco dependence 15. Benign prostatic hypertrophy, currently on Flomax, Cardura, Proscar 16. UTIs with pseudomonas in 01/2020 17. Gout 18. Bilateral internal carotid stenosis 50-70% 19. Postoperative acute blood loss anemia, expected given hemodilution and cardiopulmonary bypass pump Plan: 1. Continue to maximize medical therapy with aspirin, statin, Plavix, hydralazine. 2. Encourage use of his incentive spirometry 10 times every hour while awake. Bronchodilators per pulmonology 3. Increase activity, ambulate as tolerated. PT/OT/cardiac rehab following. Patient needs lots of encouragement. Patient may not lift his right arm above the level of his heart due to pacemaker 4. Will monitor daily labs and x-rays. Electrolyte replacement per protocol. Will give 40 mg IV push Lasix today 5. Continue ampicillin and Rocephin per infectious disease recommendations. Right arm midline catheter placed yesterday 02/05/2022. 6. GI and DVT prophylaxis. 7. Pain control current medication regimen. 8. Insulin management per primary care service 9. Patient will have permanent pacemaker placement by Dr. Scruggs once he is off IV antibiotics. Will discuss with Dr. Cunningham. Dressing over the ex ternalized pacemaker to be changed by Dr. Scruggs only 10. Will discontinue epicardial pacemaker wires today. Bed rest for 1 hour post pacemaker wire removal. 11. Dr. Haddad is consulted noted and appreciated. 12. Continue to record strict accurate intake and output, may bladder scan and straight cath for greater than 300 mL residual 13. Daily weights 14. Discharge planning in progress, anticipate discharge to [facility] inpatient rehab by the end of the week 15. More recommendations to follow based on patient's clinical course. Time with Patient: Greater than 30
--- NOTE | 2022-02-06 09:28 | XR ---
EXAMINATION TYPE: XR chest 2V DATE OF EXAM: 02/06/2022 COMPARISON: Chest x-ray 02/05/2022 HISTORY: Status post cardiac surgery TECHNIQUE: Frontal and lateral views of the chest are obtained. FINDINGS: Patient is post median sternotomy and left atrial appendage clip placement. There are over lying artifacts. Right-sided generator is present with the lead in the right ventricle. The heart is enlarged. Aorta is dense. No evident pneumothorax. Patchy basilar density is present, there is improv ement in aeration within the lungs. Blunting the posterior costophrenic angles is noted. Epicardial p acing leads and post cardiac valve replacement change noted. IMPRESSION: Small effusions and basilar atelectasis. Improvement in volume status, aeration
[2022-02-06] MEDS: HEPARIN SODIUM,PORCINE/PF 5,000 UNIT/0.5 ML SYRINGE SQ SCH ×3 (09:38→23:15)
[2022-02-06] MEDS: allopurinoL 100 MG TAB PO SCH (09:42)
[2022-02-06] MEDS: MONTELUKAST 10 MG TAB PO SCH (09:42)
[2022-02-06] MEDS: ASPIRIN 325 MG TAB PO SCH (09:42)
[2022-02-06] MEDS: TAMSULOSIN 0.4 MG CAP.ER.24H PO SCH (09:42)
[2022-02-06] MEDS: ATORVASTATIN 40 MG TAB PO SCH (09:42)
[2022-02-06] MEDS: FUROSEMIDE 10 MG/ML 4 ML VIAL IV SCH ×3 (09:43→20:16)
[2022-02-06] MEDS: CLOTRIMAZOLE 1% CREAM 30 GM TUBE TOPICAL SCH ×2 (09:45→20:34)
[2022-02-06] MEDS: DOXAZOSIN 4 MG TAB PO SCH ×2 (09:45→20:17)
[2022-02-06] MEDS: hydrALAZINE HCL 50 MG TAB PO SCH (09:46)
[2022-02-06] MEDS: guaiFENesin 600 MG TABLET.ER PO SCH ×2 (09:46→20:18)
[2022-02-06] MEDS: FINASTERIDE 5 MG TAB PO SCH (09:46)
[2022-02-06] MEDS: LACTULOSE 20 GM/30 ML CUP PO SCH ×4 (09:47→20:34)
--- NOTE | 2022-02-06 09:58 | P.PN ---
Subjective Progress Note Date: 02/06/22 HISTORY OF PRESENT ILLNESS This is a 76-year-old male patient with past medical history of hypertension with hypertensive cardiovascular disease, hyperlipidemia, diabetes mellitus type 2 with diabetic polyneuropathy, enlarged prostate, history of aortic valve disease status post aortic valve replacement with a 23 mm valve on 12/04/2017, prior to that, left heart catheterization revealed 30-40% stenosis in the RCA in 2018, history of melanoma status post resection 12/07/2021, from the back. Patient initially presented to [facility] with mental status changes with significant encephalopathy. CAT scan of the brain did not show any acute infarct or bleed. Patient did have leukocytosis and low-grade fever. He is status post IV fluid resuscitation, he was started on IV antibiotics initially in the form of Levaquin and subsequently changed to ampicillin and ce ftriaxone by Dr. Cunningham. EKG did not show any evidence of acute changes. CAT scan of the chest abdomen and pelvis showed some perinephric stranding without evidence of hydronephrosis, there was evidence of diverticulosis without diverticulitis. CAT scan of the chest showed evidence of cardiomegaly with bilateral pleural effusion and possible pulmonary fibrosis. CAT scan of the cervical spine did show evidence of spondylosis of cervical spine without evidence of fracture. CAT scan of the brain showed brain atrophy without evidence of acute infarct or bleed, small vessel disease present. Patient was initially admitted to [facility] where he was followed by infectious disease as well as cardiology. He underwent a REESE on 01/22 revealed left ventricular systolic function normal at 55-60%, small aortic valve vegetation was present measuring 0.53 cm. Patient has bioprosthetic aortic valve. Moderate MR, [id number] tricuspid regurgitation, no pericardial effusion. Patients blood cultures were positive for enterococcus species. Patient was in a sinus rhythm with a first-degree AV block but subsequently developed a high-grade AV block on 01/24 with progressive worsening of the AV block and PVCs. Patient is complaining of left lower rib cage chest discomfort. No palpitations or dizziness. Patient was then transferred to [facility] to be evaluated by cardiothoracic surgery team. Patient is seen today in the intensive care unit, consults added for cardiology, barrel cap setter, cardiothoracic surgery. 01/25: Patient is seen today in the ICU. He states he slept well last night. He states he is better able to take a deep breath with less pain on his left chest wall. He is able to reach 1500 MLS on incentive spirometry. He is complaining of tingling in bilateral feet. Has not had a bowel movement but feels that he needs to today. Senokot scheduled added. Blood sugar was low this morning and glimepiride decreased to 2 mg twice daily and Levemir decreased to 20 units. Patient has an external catheter in place draining clear emily urine. He has been evaluated by cardiology, cardiothoracic surgery and barrel cap setter. Cardiology is planning for temporary pacemaker. C plan to continue close monitoring in the intensive care unit, monitor results of the blood cultures.hest x-ray reveals postoperative changes similar to prior exam. There may be some interstitial changes. Carotid ultrasound reveals slight elevated velocity in the internal carotid arteries bilaterally suggestive of 50-70 percent stenosis. There is antegrade flow in the vertebral arteries. Panorex CAT scan completed without any significant abnormalities. Arterial ultrasound bilateral lower extremities revealed normal ankle brachial indices. 01/26: Patient is lying down in bed in no acute distress, yesterday underwent temporary TVP for 2nd degree AV block, plan is to repeat REESE for further evaluation of possible abscess formation and the degree of involvement of the aortic ring of the bioprosthetic aortic valve, we will continue with IV Rocephin and Ampicillin for now, repeated blood cltures from 01/24/2022 still no growth so far, also nasal screen negative for MSSA.MRSA, bedside spirometer showed FEV2 38 % of predicted, we will continue with aggressive pulmonary toiletting, patient has been seen by multiple services , prognosis continues to be guarded, spoke with his daughter and his over the phone , they are contemplating if he should go to a regions hospital like [facility] or [facility], our cardiothoracic team is involved and hopefully will see patient today and alleviate his concerns and give their recommendations on surgical intervention. 01/28: The patient remains in the intensive care unit patient has been afebrile, heart rate 70s, blood pressure 157/77, pulse ox 94% on room air. environmental monitoring technician is a paced rhythm. Cardiac catheterization, performed on 01/27, reveals moderate disease in the mid RCA, no evidence of high-grade stenosis in the LAD or left circumflex and placement of a temporary pacemaker. Patient will be seen by a dentist this afternoon. He is utilizing his incentive spirometry regularly and reaching 2000 2500. He is eating all of his food. He states he had a bowel movement yesterday and today. He is urinating without any difficulty. Patient is expecting to be seen by Dr. Lopez to discuss surgical options. WBC 6.4, hemoglobin 0.5, platelet count 235. BMP within normal limits. Calcium 8.2. Capillary blood glucose running between 126 and 196. Blood culture obtained on 01/24 showing no growth after 72 hours 1 specimen. 01/29: Patient was seen by the dentist yesterday and was cleared by surgery. He complains of dry mouth when he woke up this morning but otherwise no new complaints. environmental monitoring technician is paced rhythm. Pulse ox 95% on room air. Blood pressure elevated 182/87. Hydrochlorothiazide 25 mg added to his blood pressure regime. Repeat blood work reveals WBC 5.3, hemoglobin 11.7, platelet count 230. Electrolytes and renal function normal. Capillary blood glucose running between 97-194. Patient is waiting to hear from the cardiothoracic team regarding plan for surgery. 01/30: Patient is scheduled for redo aortic valve replacement, possible aortic root replacement on 01/31. a consult was added for urology yesterday for recurrent UTIs. Patient denies dysuria, he is able to void spontaneously and is maintained on Flomax and Proscar. Dr. Farooq believes the culture from 2019 is contamination rather than actual UTI with history of phimosis contributing to positive culture. Plan to follow up with Dr. Emmanuel as normally scheduled. patient is continued on antibiotics the form of ampicillin and Rocephin. patient has remained afebrile. Pulse ox is 97% on room air. CM paced rhythm. Blood pressure 140/67 and has been improved overnight with addition of hydrochlorothiazide yesterday. Repeat blood work reveals WBC 6.1, hemoglobin 11.7, platelet count 237. Electrolytes and renal function are normal with creatinine of 1.08. White blood glucose running between 109 and 177. 01/31: Patient remains afebrile overnight with heart rate 49-54. Blood pressure 139/69 and pulse ox 94% on room air. Repeat blood work reveals WBC 5.0, hemoglobin 11.1, platelet count 246. Sodium 136, potassium 4.4, chloride 103, CO2 24, BUN 29 creatinine 1.05. Blood sugar 122. Capillary blood glucose running between 106 and 166. Patient is scheduled for redo aortic valve replacement today. 02/01: Patient is status post aortic valve replacement with bioprosthetic device. He remains in the intensive care unit. He was successfully extubated last evening and currently on 2 L nasal cannula with pulse ox of 97%. Heart rate is running in the 80s, blood pressure 114/60. environmental monitoring technician is paced rhythm. Repeat blood work reveals WBC 6.3, hemoglobin 7.3, platelet count 150. Sodium 136, potassium 4.7, chloride 108, CO2 22, BUN 20 creatinine 1.17. Capillary blood glucose running between 110 and 127. Magnesium 2.6. Intraoperative tissue cultures are in process. Repeat chest x-ray reveals postoperative changes with bilateral infiltrate and small effusions. Patient has been started on Plavix, aspirin 325 mg daily, patient started on insulin drip, Levemir and Farxiga discontinued. The patient is complaining of sensation like urethral spasm like he has a urinary tract infection, Hargrove catheter is in place and draining. No hematuria. Patient states he is only sleeping a few minutes at a time. He does not have much appetite. 02/02 : Patient is feeling weak today , somewhat forgetful, did receive one unit of PRBC, chest tubes were removed and he will be switched to Levemir 24 units sc qhs and Novolog 5 units AC meals plus SSI and he will comeoff insulin drip, he continues to have dysuria, has Hargrove catheter in place and we will continue to have chronic phimosis that will require surgery down the line. 02/04: Patient is resting recliner in the ICU. He states he slept a little bit last night but is consistently not getting much sleep. He states he feels less short of breath today. He is complaining of needing to void but he continues to have a Hargrove catheter in place. He has not had a bowel movement for the last 3- 4 days. Lactulose added. He also states that he continues to have decreased appetite which may improve after having a bowel movement. Patient is scheduled for external pacemaker today with Dr Scruggs. environmental monitoring technician is paced rhythm. He is currently on insulin 24 units of Levemir at bedtime along with 5 units of NovoLog with meals and NovoLog scale. Blood Glucose Running between 130 and 203. Repeat Blood Work Reveals WBC 6.2, Hemoglobin 7.8 up to 140. Sodium 130, Potassium 4.1, Chloride 102, CO2 20, BUN 27 Creatinine 1.15. Magnesium 2.6. Patient Received 1 Unit of Packed RBCs Yesterday. Tissue Culture Is Positive for Enterococcus Faecalis. Chest x-ray this morning reveals difficult to exclude pulmonary edema, pneumonia, atelectasis and possible associated effusion. Patient is reaching 1500 mL on incentive spirometry. 02/05: Patient states that he wishes that he felt better. He complains of hacking cough and wheezing and he had a nebulizer treatment a couple hours ago and states it did not help him. He also complains of not being able to sleep. He states he has not had a bowel movement despite multiple medications for bowel regime. Patient have a repeat Dulcolax suppository this morning and lactulose increased to 3 times daily. Hargrove catheter remains in place. Yesterday, patient underwent externalized temporary pacemaker implantation yesterday with Dr. 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 Patient will be able to be discharged with this device in place. Patient remains in the intensive care unit. He's been afebrile, heart rate in the 80s, blood pressure 129/74, pulse ox 98% on 2 L nasal cannula. Repeat blood work reveals WBC 4.9, hemoglobin 7.8, platelet count 153. Sodium 136 otherwise electrolytes and renal function are within normal limits. Calcium is 7.7. Capillary blood glucose running between 90-136. Repeat chest x-ray in pending. 02/06: Patient remains in the intensive care unit, he is seen today for resting in recliner. He continues to state that he is tired and not sleeping. He states he was able to walk around the unit yesterday and did well with physical therapy. Patient was evaluated by Dr. Morgan and appears to be a good candidate waiting for insurance approval. Patient did state he had a bowel movement after multiple medication regime. Hargrove was discontinued yesterday and he's been able to void. Patient does complain of shortness of breath order for Lasix 40 mg IV 1 today and will increase this to 40 mg IV twice daily. Patient has significant 3+ edema, significant edema in the scrotal/penis area. He is able to void despite this edema. Patient states that he has not been eating well and continues to not have any appetite. Patient remains afebrile, heart rate in the 80s, blood pressure 132/86, pulse ox 94% on room air. Repeat blood work reveals WBC 5, hemoglobin 7, platelet count 181. Sodium 135 otherwise electrolytes and renal function are normal. Her blood glucose running between 158 and 221. Levemir will be increased by 2 units. REVIEW OF SYSTEMS Constitutional: No fever, no chills, no night sweats. No weight change. No weakness, denies fatigue no lethargy. Reports daytime sleepiness. EENT: No headache. No blurred vision or double vision, no loss of vision. No loss of Hearing, no ringing in the ears, no dizziness. No nasal drainage or congestion. No epistaxis. No sore throat. Lungs: Reports mild shortness of breath improving, reports cough, no sputum production. Reports wheezing. Cardiovascular: Reports chest discomfort, no lower extremity edema. No palpitations. No paroxysmal nocturnal dyspnea. No orthopnea. No lightheadedness or dizziness. No syncopal episodes. Abdominal: No abdominal pain. No nausea, vomiting. No diarrhea. No constipation. No bloody or tarry stools. Reports loss of appetite. Genitourinary: No dysuria, increased frequency, urgency. No urinary retention- Hargrove catheter in place. Musculoskeletal: No myalgias. No muscle weakness, no gait dysfunction, no frequent falls. No back pain. No neck pain. Integumentary: No wounds, no lesions. No rash or pruritus. No unusual br uising. Neurologic: No aphasia. No facial droop. No change in mentation. No head injury. No headache. No paralysis. No paresthesia. Psychiatric: No depression. No anxiety. No mood swings. Reports insomnia Endocrine: Noted abnormal blood sugars. No weight change. No excessive sweating or thirst. No cold intolerance. PHYSICAL EXAMINATION Gen: This is a 76-year-old male. He is resting in ICU in recliner and appears to be in no acute distress. HEENT: Head is atraumatic, normocephalic. Pupils equal, round. Sclerae is anicteric. NECK: Supple. No JVD. No lymphadenopathy. No thyromegaly. LUNGS: Decrease breath sounds at the bases No wheezes or rhonchi, sternotomy site is covered with dressing HEART: First heart sound is depressed, second heart sound is normal, aortic valve click, systolic ejection murmur 2/6 at the left sternal border. environmental monitoring technician is paced rhythm. External pacemaker on the right anterior chest wall covered with dressing. ABDOMEN: Soft. Bowel sounds are present. No masses. No tenderness. EXTREMITIES: Trace pedal edema. No calf tenderness. Dorsalis pedis +2 bilaterally. Bilateral hand edema. NEUROLOGICAL: Patient is awake, alert and oriented x3. Cranial nerves 2 through 12 are grossly intact. Muscle power 4 out of 5 upper and lower extremities bilaterally. ASSESSMENT AND PLAN 1. POD #6 S/P Redo Sternotomy with excision of 23 mm Inspiris Pericardial Bioprosthetic Aortic valve and Placement of 21 Inspiris pericardial Bioprosthestic valve due to Infective endocarditis with Enterococcus fecalis awith Moderate AI, has been on IV Rocephin and Ampicillin . 2. Third degree AV block. has a temporary Pacemaker and is status post external temporary pacemaker 02/04. 3. Enterococcus Feacalis Endocarditis and bacteremia. we will continue with Rocephin 2 gr IVPB Q 12 hours and Ampicillin 2 gr IVPB Q 6 hours, ID team is following. 4. Hypertension with hypertensive cardiovascular disease. Continue patient on Hydralazine 50 mg po bid and Cardura 8 mg po bid. 5. Hyperlipidemia. Continue atorvastatin 40 mg at bedtime. 6. Diabetes mellitus type 2. Continue patient on Levemir increased to 26 units Sc qhs , Novolog 5 units AC meals tid along with SSI. 7. Benign prostatic hypertrophy. Continue Flomax 0.4 mg daily, continue finasteride 5 mg daily 8. 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 Continue patient on Symbicort 160- 4.5 g 2 puffs twice daily, albuterol nebulizer every 4 hours as needed for shortness of breath, reviewed bedside spirometery with FEV1 38 % of predicted. 9. ALLERGIC rhinitis. Continue Singulair 10 mg at bedtime. 10. Chronic gout. Continue allopurinol 100 mg daily. 11. DVT prophylaxis. Heparin 5000 units subcu every 8 hours. 12. GI prophylaxis. Protonix 40 mg daily. 13. Acute blood loss Anemia, S/P 1 units of PRBCs. 14. Medical debility. we ill require inpatient rehab. CODE STATUS: Full code. DISCHARGE PLAN Most likely Inpatient rehab by end of this week. Impression and plan of care have been directed as dictated by the signing physician. Maria G Paez nurse practitioner acting as scribe for signing physician. Objective - Vital Signs Vital signs: Vital Signs Temp 98.3 F 02/06/22 08:00 Pulse 81 02/06/22 08:00 Resp 19 02/06/22 08:00 BP 132/86 02/06/22 08:00 Pulse Ox 94 L 02/06/22 08:00 FiO2 50 01/31/22 17:00 Intake & Output 02/05/22 02/06/22 02/06/22 18:59 06:59 18:59 Intake Total 1081 450 570 Output Total 805 425 0 Balance 276 25 570 Weight 114.3 kg Intake: IV 471 450 Ampicillin 2,000 mg In 300 300 Sodium Chloride 0.9% 100 ml @ 200 mls/hr IVPB Q4HR [facility] Rx#:[id number] PRESSURE BAG (Sodium 21 Chloride 0.9) Sodium Chloride 0.9% 1, 100 100 000 ml @ 20 mls/hr IV . Q24H [facility] Rx#:[id number] cefTRIAXone 2 gm In 50 50 Sodium Chloride 0.9% 50 ml @ 100 mls/hr IVPB Q12HR [facility] Rx#:[id number] Oral 610 570 Output: Urine 805 425 0 Other: Voiding Method Urinal Urinal # Voids 1 0 0 # Bowel Movements 1 1 ABP, PAP, CO, CI - Last Documented Arterial Blood Pressure 167/54 Pulmonary Artery Pressure 36/15 Cardiac Output 5.5 Cardiac Index 2.5 - Labs CBC & Chem 7: 02/06/22 03:23 02/06/22 03:23 Labs: Abnormal Lab Results - Last 24 Hours (Table) 02/05/22 02/05/22 02/05/22 Range/Units 11:21 16:27 20:31 RBC (4.30-5.90) m/uL Hgb (13.0-17.5) gm/dL Hct (39.0-53.0) % RDW (11.5-15.5) % Sodium (137-145) mmol/L Glucose (74-99) mg/dL POC Glucose (mg/dL) 158 H 221 H 177 H (70-110) mg/dL Calcium (8.4-10.2) mg/dL Magnesium (1.6-2.3) mg/dL 02/06/22 02/06/22 02/06/22 Range/Units 03:23 03:23 07:02 RBC 2.31 L (4.30-5.90) m/uL Hgb 7.0 L (13.0-17.5) gm/dL Hct 22.4 L (39.0-53.0) % RDW 16.6 H (11.5-15.5) % Sodium 135 L (137-145) mmol/L Glucose 131 H (74-99) mg/dL POC Glucose (mg/dL) 177 H (70-110) mg/dL Calcium 8.0 L (8.4-10.2) mg/dL Magnesium 2.8 H (1.6-2.3) mg/dL Microbiology - Last 24 Hours (Table) 01/31/22 14:03 Gram Stain - Final Other - Other Tissue Culture - Final Enterococcus faecalis 01/31/22 14:03 Anaerobic Culture - Final Other - Other
--- NOTE | 2022-02-06 10:13 | P.PN ---
Subjective Progress Note Date: 02/06/22 The patient is a 76-year-old male follows in the office with Dr. Cárdenas. He presented to [facility] on 01/17/2022 with mental status changes and was found to have infective endocarditis. TVP was placed for second-degree heart block. On 01/31/2022 he underwent redo aortic valve replacement with Dr. Lopez. Postoperatively the patient has been pacemaker dependent with third- degree heart block. He underwent externalized pacemaker implantation with Dr. Scruggs on 02/04/2022. The patient was interviewed and examined sitting comfortably in the recliner chair. He continues to report being weak and tired. He denies any chest pain or chest pressure. No dizziness when standing. GENERAL: Well-appearing, well-nourished and in no acute distress. NECK: Supple without JVD or thyromegaly. LUNGS: Breath sounds clear to auscultation bilaterally. Respiration equal and unlabored. Bilateral rhonchi. HEART: Regular rate and rhythm without rubs or gallops. S1 and S2 heard. Systolic murmur. Sternal incision approximated. EXTREMITIES: Normal range of motion, mild generalized edema. No clubbing or cyanosis. Peripheral pulses intact and strong. VITALS: Blood pressure 132/86, pulse 80, respiratory rate 19, SpO2 94% on room air TELEMETRY: Ventricular paced rhythm. Runs of bigeminy and trigeminy. LABS: WBC 5.0, hemoglobin 7.0, hematocrit 22.4, platelet 181, sodium 135, potassium 4 .2, BUN 19, creatinine 1.09, magnesium 2.8 IMPRESSION: Infective endocarditis, enterococcus faecalis Redo aortic valve replacement Advanced heart block, status post pacemaker implantation Frequent PVC's History of coronary artery disease History of diabetes mellitus PLAN: Pacemaker dressing changes to be completed by Dr. Scruggs only Recommend aggressive pulmonary hygiene Recommend ambulation Further recommendations to be based on clinical course I am dictating on behalf of Dr Grey Scruggs's history/physical and assessment/plan. Objective - Vital Signs Vital signs: Vital Signs Temp 98.3 F 02/06/22 08:00 Pulse 81 02/06/22 08:00 Resp 19 02/06/22 08:00 BP 132/86 02/06/22 08:00 Pulse Ox 94 L 02/06/22 08:00 FiO2 50 01/31/22 17:00 Intake & Output 02/05/22 02/06/22 02/06/22 18:59 06:59 18:59 Intake Total 1081 450 570 Output Total 805 425 0 Balance 276 25 570 Weight 114.3 kg Intake: IV 471 450 Ampicillin 2,000 mg In 300 300 Sodium Chloride 0.9% 100 ml @ 200 mls/hr IVPB Q4HR [facility] Rx#:[id number] PRESSURE BAG (Sodium 21 Chloride 0.9) Sodium Chloride 0.9% 1, 100 100 000 ml @ 20 mls/hr IV . Q24H [facility] Rx#:[id number] cefTRIAXone 2 gm In 50 50 Sodium Chloride 0.9% 50 ml @ 100 mls/hr IVPB Q12HR [facility] Rx#:[id number] Oral 610 570 Output: Urine 805 425 0 Other: Voiding Method Urinal Urinal Toilet Bedside Commode Urinal # Voids 1 0 1 # Bowel Movements 1 1 ABP, PAP, CO, CI - Last Documented Arterial Blood Pressure 167/54 Pulmonary Artery Pressure 36/15 Cardiac Output 5.5 Cardiac Index 2.5 - Labs CBC & Chem 7: 02/06/22 03:23 02/06/22 03:23 Labs: Abnormal Lab Results - Last 24 Hours (Table) 02/05/22 02/05/22 02/05/22 Range/Units 11:21 16:27 20:31 RBC (4.30-5.90) m/uL Hgb (13.0-17.5) gm/dL Hct (39.0-53.0) % RDW (11.5-15.5) % Sodium (137-145) mmol/L Glucose (74-99) mg/dL POC Glucose (mg/dL) 158 H 221 H 177 H (70-110) mg/dL Calcium (8.4-10.2) mg/dL Magnesium (1.6-2.3) mg/dL 02/06/22 02/06/22 02/06/22 Range/Units 03:23 03:23 07:02 RBC 2.31 L (4.30-5.90) m/uL Hgb 7.0 L (13.0-17.5) gm/dL Hct 22.4 L (39.0-53.0) % RDW 16.6 H (11.5-15.5) % Sodium 135 L (137-145) mmol/L Glucose 131 H (74-99) mg/dL POC Glucose (mg/dL) 177 H (70-110) mg/dL Calcium 8.0 L (8.4-10.2) mg/dL Magnesium 2.8 H (1.6-2.3) mg/dL Microbiology - Last 24 Hours (Table) 01/31/22 14:03 Gram Stain - Final Other - Other Tissue Culture - Final Enterococcus faecalis 01/31/22 14:03 Anaerobic Culture - Final Other - Other
--- NOTE | 2022-02-06 10:15 | P.PN ---
Subjective Progress Note Date: 02/06/22 02/04/2022, I'm seeing the patient for a follow-up. The patient is postoperative placement and the patient was found also to have an infective endocarditis. The patient is postop day #3 following a noted murmur placement. He had infective endocarditis in the preop blood cultures were negative. The tissue culture from the valve sternotomy positive for enterococcus and the patient is currently on IV Unasyn. The chest x-ray from today shows hepatomegaly and some microvessel congestion. Chest tubes at all removed. No fever. No chills. Is using the incentive spirometer and is pulling approximately 1000. The patient has an underlying cardiac rhythm that is third-degree AV block and the patient will need a pacemaker insertion. Urine output is adequate for now. The patient's has a white cell count of 6.8 with a hemoglobin of 7.8 and the sugar of 114. Platelet count is on 140. Magnesium is 2.6 with a ionized calcium of 4.9. Awake. Alert. His current [place] oxygen. Communicating. He has a right IJ Cordis and he still has an arterial line in his right upper extremity. 02/05/2022, the patient is postop day #5. Doing well. No specific complaints. Room air oxygen with a pulse ox of 99%. Chest x-ray from today is showing cardiomegaly, atelectatic changes in the lung base bilaterally, Ana vessel congestion and small amount of effusion or son the left. The patient has a PICC line in his right upper extremity. The sternotomy wires are also seen. As far as his cardiac rhythm, he continues to be paced. The plan is to ultimately inserted today pacemaker for high degree AV block. He continues to use incentive spirometer. He is afebrile. He has enterococcus on his valve and the patient is currently on IV ampicillin 2 g every 4 hours/Rocephin. The white cell count of 4.9 with a hemoglobin of 7.8 and a platelet count of 153. Sodium is 136 with a BUN of 18 and a creatinine of 1.06. 02/06/2022, the patient is postop day #6. He continues to have a high degree AV block. The patient has a temporary pacemaker in place. He is currently being paced most of the time. Epicardial wires were pulled out. Surgical was obstructing and intact. Remains on a combination of IV Rocephin and ampicillin. His blood work from today shows a hemoglobin of 7 otherwise, 5. Electrolytes are normal. He is using the incentive spirometer. His pulling approximately 1000. Review of the chest x-ray from today and shows some mild interstitial prominence. Otherwise no other acute abnormalities. No pneumothorax. The patient is receiving 40 mg of Lasix IV twice a day. Objective - Vital Signs Vital signs: Vital Signs Temp 98.3 F 02/06/22 08:00 Pulse 81 02/06/22 08:00 Resp 19 02/06/22 08:00 BP 132/86 02/06/22 08:00 Pulse Ox 94 L 02/06/22 08:00 FiO2 50 01/31/22 17:00 Intake & Output 02/05/22 02/06/22 02/06/22 18:59 06:59 18:59 Intake Total 1081 450 570 Output Total 805 425 0 Balance 276 25 570 Weight 114.3 kg Intake: IV 471 450 Ampicillin 2,000 mg In 300 300 Sodium Chloride 0.9% 100 ml @ 200 mls/hr IVPB Q4HR [facility] Rx#:[id number] PRESSURE BAG (Sodium 21 Chloride 0.9) Sodium Chloride 0.9% 1, 100 100 000 ml @ 20 mls/hr IV . Q24H [facility] Rx#:[id number] cefTRIAXone 2 gm In 50 50 Sodium Chloride 0.9% 50 ml @ 100 mls/hr IVPB Q12HR [facility] Rx#:[id number] Oral 610 570 Output: Urine 805 425 0 Other: Voiding Method Urinal Urinal Toilet Bedside Commode Urinal # Voids 1 0 1 # Bowel Movements 1 1 ABP, PAP, CO, CI - Last Documented Arterial Blood Pressure 167/54 Pulmonary Artery Pressure 36/15 Cardiac Output 5.5 Cardiac Index 2.5 - Exam No acute distress, oriented 3. Currently on RA HEENT examination is grossly unremarkable. Neck supple. Full range of motion. No adenopathy thyromegaly or neck vein distention. Cardiovascular examination reveals regular rhythm rate. S1-S2 normal. No S3 or S4. Heart rate 87 bpm. Lungs reveal clear breath sounds. Breath sounds are equal bilaterally. No adventitious lung sounds including wheezes rhonchi or crackles. Saturations on 2 L are 96 %. Abdomen soft bowel sounds are heard. No masses or tenderness. Extremities are intact. No cyanosis clubbing or edema. Skin is without rash or lesion. Neurologic examination is brief but nonfocal. - Labs CBC & Chem 7: 02/06/22 03:23 02/06/22 03:23 Labs: Abnormal Lab Results - Last 24 Hours (Table) 02/05/22 02/05/22 02/05/22 Range/Units 11:21 16:27 20:31 RBC (4.30-5.90) m/uL Hgb (13.0-17.5) gm/dL Hct (39.0-53.0) % RDW (11.5-15.5) % Sodium (137-145) mmol/L Glucose (74-99) mg/dL POC Glucose (mg/dL) 158 H 221 H 177 H (70-110) mg/dL Calcium (8.4-10.2) mg/dL Magnesium (1.6-2.3) mg/dL 02/06/22 02/06/22 02/06/22 Range/Units 03:23 03:23 07:02 RBC 2.31 L (4.30-5.90) m/uL Hgb 7.0 L (13.0-17.5) gm/dL Hct 22.4 L (39.0-53.0) % RDW 16.6 H (11.5-15.5) % Sodium 135 L (137-145) mmol/L Glucose 131 H (74-99) mg/dL POC Glucose (mg/dL) 177 H (70-110) mg/dL Calcium 8.0 L (8.4-10.2) mg/dL Magnesium 2.8 H (1.6-2.3) mg/dL Microbiology - Last 24 Hours (Table) 01/31/22 14:03 Gram Stain - Final Other - Other Tissue Culture - Final Enterococcus faecalis 01/31/22 14:03 Anaerobic Culture - Final Other - Other Assessment and Plan Plan: Postoperative day #6, status post redo sternotomy, extraction of previous p rosthetic aortic valve, and replacement with a 21 mm pericardial bioprosthesis aortic valve. Postthoracotomy. The patient is currently on room air oxygen. Surgical site is likely an intact. The patient's chest x-ray shows some mild interstitial prominence and the patient has signs of fluid overload on his x-ray and clinically in his scrotal area on his lower extremities and the patient is cu rrently on IV Lasix 40 mg every 12 hours. Acute prosthetic aortic valve endocarditis, secondary to Enterococcus faecalis. The patient remains on IV ampicillin/rocephin Prior history of aortic valve replacement, 4 years ago for aortic stenosis. High-grade AV block, secondary to endocarditis. Acute encephalopathy, secondary to endocarditis and sepsis. History of COPD, stable. Essential hypertension. Type 2 diabetes mellitus. BPH. Seasonal ALLERGIC rhinitis. Plan: The patient is currently RA oxygen The patient is using the incentive spirometer IV Lasix Removal epicardial wires Hemodynamically stable Cardiac rhythm is fairly high degree AV block and the patient will need a pacemaker insertion and this will be discussed with cardiology. The blood cultures are negative and the patient should be able to have a pacemaker inserted in 4-6 weeks Chest x-ray is essentially showing postsurgical changes. There is some mild pulmonary vascular congestion Continue Levemir insulin 24 units for blood sugar control in addition to NovoLog 5 units with meals Hydrocodone for pain control No beta blockers for now will continue to follow.
[2022-02-06] MEDS: LOSARTAN 50 MG TAB PO SCH (10:30)
[2022-02-06 11:26] LABS: Glucose,Whole Blood 169 mg/dL (70-110)
[2022-02-06 16:29] LABS: Glucose,Whole Blood 165 mg/dL (70-110)
[2022-02-06] MEDS: MELATONIN 3 MG TABLET PO PRN (20:18)
[2022-02-06] MEDS: SENNOSIDES-DOCUSATE SODIUM 1 EACH TAB PO SCH (20:18)
[2022-02-06 20:30] LABS: Glucose,Whole Blood 193 mg/dL (70-110)
[2022-02-06] MEDS: INSULIN DETEMIR (LEVEMIR) 100 UNIT/ML SYR SQ SCH (20:33)
[2022-02-06] MEDS: BENZOCAINE/MENTHOL LOZENG 1 EACH LOZENGE MUCOUS MEM PRN (22:43)
[2022-02-07] MEDS: AMPICILLIN 2,000 MG in SODIUM CHLORIDE 0.9% 100 ML IVPB SCH ×5 (04:37→20:07)
[2022-02-07] MEDS: ACETAMINOPHEN TAB 500 MG TAB PO PRN (04:45)
[2022-02-07] MEDS: FERROUS SULFATE 325 MG TAB PO SCH ×2 (06:36→16:40)
[2022-02-07] MEDS: PANTOPRAZOLE 40 MG TABLET PO SCH (06:36)
[2022-02-07] MEDS: ASCORBIC ACID 500 MG TAB PO SCH ×2 (06:36→16:40)
[2022-02-07 07:06] LABS: Glucose,Whole Blood 176 mg/dL (70-110)
[2022-02-07] MEDS: INSULIN ASPART (NovoLOG) 100 UNIT/ML VIAL SQ SCH ×7 (07:14→20:09)
[2022-02-07] MEDS: IPRATROPIUM-ALBUTEROL 3 ML NEB INHALATION SCH ×4 (07:28→19:22)
[2022-02-07] MEDS: SYMBICORT 160-4.5 MCG INHALER INHALATION SCH ×2 (07:29→19:23)
[2022-02-07] MEDS: ACETYLCYSTEINE 800 MG/4 ML VIAL INHALATION SCH ×4 (07:29→19:22)
[2022-02-07] MEDS: LACTULOSE 20 GM/30 ML CUP PO SCH (07:31)
[2022-02-07] MEDS ORDERED: LACTULOSE 20 GM/30 ML CUP PO PRN (07:32)
[2022-02-07 07:56] LABS: Anisocytosis Slight; Basophils % (A) 1 %; Eosinophils # (A) 0.2 k/uL (0-0.7); Eosinophils % (A) 3 %; HCT 23.7 % (39.0-53.0); HGB 7.3 gm/dL (13.0-17.5); Hypochromasia Marked; Lymphocytes # (A) 0.7 k/uL (1.0-4.8); Lymphocytes % (A) 13 %; MCH 30.3 pg (25.0-35.0); MCHC 30.7 g/dL (31.0-37.0); MCV 98.9 fL (80.0-100.0); Macrocytosis Slight; Mean Platelet Volume 9.3; Monocytes # (A) 0.4 k/uL (0-1.0); Monocytes % (A) 7 %; Neutrophils % (A) 75 %; Platelet Count 207 k/uL (150-450); Poikilocytosis Moderate; RDW 16.9 % (11.5-15.5); WBC 5.4 k/uL (3.8-10.6)
[2022-02-07 08:07] LABS: Albumin 2.8 g/dL (3.5-5.0); Calcium 7.8 mg/dL (8.4-10.2); Potassium 4.2 mmol/L (3.5-5.1); Total Bilirubin 0.5 mg/dL (0.2-1.3)
--- NOTE | 2022-02-07 08:24 | P.PN ---
Subjective Progress Note Date: 02/07/22 02/04/2022, I'm seeing the patient for a follow-up. The patient is postoperative placement and the patient was found also to have an infective endocarditis. The patient is postop day #3 following a noted murmur placement. He had infective endocarditis in the preop blood cultures were negative. The tissue culture from the valve sternotomy positive for enterococcus and the patient is currently on IV Unasyn. The chest x-ray from today shows hepatomegaly and some microvessel congestion. Chest tubes at all removed. No fever. No chills. Is using the incentive spirometer and is pulling approximately 1000. The patient has an underlying cardiac rhythm that is third-degree AV block and the patient will need a pacemaker insertion. Urine output is adequate for now. The patient's has a white cell count of 6.8 with a hemoglobin of 7.8 and the sugar of 114. Platelet count is on 140. Magnesium is 2.6 with a ionized calcium of 4.9. Awake. Alert. His current [place] oxygen. Communicating. He has a right IJ Cordis and he still has an arterial line in his right upper extremity. 02/05/2022, the patient is postop day #5. Doing well. No specific complaints. Room air oxygen with a pulse ox of 99%. Chest x-ray from today is showing cardiomegaly, atelectatic changes in the lung base bilaterally, Ana vessel congestion and small amount of effusion or son the left. The patient has a PICC line in his right upper extremity. The sternotomy wires are also seen. As far as his cardiac rhythm, he continues to be paced. The plan is to ultimately inserted today pacemaker for high degree AV block. He continues to use incentive spirometer. He is afebrile. He has enterococcus on his valve and the patient is currently on IV ampicillin 2 g every 4 hours/Rocephin. The white cell count of 4.9 with a hemoglobin of 7.8 and a platelet count of 153. Sodium is 136 with a BUN of 18 and a creatinine of 1.06. 02/06/2022, the patient is postop day #6. He continues to have a high degree AV block. The patient has a temporary pacemaker in place. He is currently being paced most of the time. Epicardial wires were pulled out. Surgical was obstructing and intact. Remains on a combination of IV Rocephin and ampicillin. His blood work from today shows a hemoglobin of 7 otherwise, 5. Electrolytes are normal. He is using the incentive spirometer. His pulling approximately 1000. Review of the chest x-ray from today and shows some mild interstitial prominence. Otherwise no other acute abnormalities. No pneumothorax. The patient is receiving 40 mg of Lasix IV twice a day. 02/07/2022, the patient is postop day #7. He has been on the same antibiotic coverage includes IV Rocephin and ampicillin. Nofever for now. no diarrhea. No side effects from antibiotic treatment. He continues to be diuresed with Lasix and the patient has been in a slight negative fluid balance. Continues to have edema lower approximately bilaterally. Blood work from today shows a white cell count of 5.47.3 sodium is 137 bicarb was 23 BUN is 16 creatinine 0.9 albumin is 2.5.8. Chest x-ray from today was noted and there is no major interval change. The patient continues to receive Lasix 40 mg IV every 12 hours. He was admitted spirometer. No chest pain. Surgical incisions are clean and intact. He has a percutaneous pacemaker in place. The ultimate goal is to insert a permanent pacemaker once he completes a 4-6 week course of antibiotics. He is awake and alert. No focal neurological deficit. No nausea or vomiting. No diarrhea. Functionality still limited. Pulse ox is 97% on 2 L of oxygen nasal cannula. Epicardial leads were removed. Objective - Vital Signs Vital signs: Vital Signs Temp 98.2 F 02/07/22 04:00 Pulse 80 02/07/22 07:39 Resp 13 02/07/22 07:00 BP 142/74 02/07/22 07:00 Pulse Ox 97 02/07/22 07:29 FiO2 50 01/31/22 17:00 Intake & Output 02/06/22 02/07/22 02/07/22 18:59 06:59 18:59 Intake Total 1260 390 Output Total 1025 1000 Balance 235 -610 Weight 114.3 kg Intake: IV 440 190 Ampicillin 2,000 mg In 300 100 Sodium Chloride 0.9% 100 ml @ 200 mls/hr IVPB Q4HR [facility] Rx#:[id number] Sodium Chloride 0.9% 1, 40 40 000 ml @ 20 mls/hr IV . Q24H [facility] Rx#:[id number] cefTRIAXone 2 gm In 100 50 Sodium Chloride 0.9% 50 ml @ 100 mls/hr IVPB Q12HR [facility] Rx#:[id number] Oral 820 200 Output: Urine 1025 1000 Other: Voiding Method Bedside Commode Bedside Commode Urinal Urinal # Voids 1 0 # Bowel Movements 1 ABP, PAP, CO, CI - Last Documented Arterial Blood Pressure 167/54 Pulmonary Artery Pressure 36/15 Cardiac Output 5.5 Cardiac Index 2.5 - Exam No acute distress, oriented 3. Currently on RA HEENT examination is grossly unremarkable. Neck supple. Full range of motion. No adenopathy thyromegaly or neck vein distention. Cardiovascular examination reveals regular rhythm rate. S1-S2 normal. No S3 or S4. Heart rate 87 bpm. Lungs reveal clear breath sounds. Breath sounds are equal bilaterally. No adventitious lung sounds including wheezes rhonchi or crackles. Saturations on 2 L are 96 %. Abdomen soft bowel sounds are heard. No masses or tenderness. Extremities are intact. No cyanosis clubbing or edema. Skin is without rash or lesion. Neurologic examination is brief but nonfocal. - Labs CBC & Chem 7: 02/07/22 07:00 02/07/22 07:00 Labs: Abnormal Lab Results - Last 24 Hours (Table) 02/06/22 02/06/22 02/06/22 Range/Units 11:24 16:27 20:29 RBC (4.30-5.90) m/uL Hgb (13.0-17.5) gm/dL Hct (39.0-53.0) % MCHC (31.0-37.0) g/dL RDW (11.5-15.5) % Lymphocytes # (1.0-4.8) k/uL Carbon Dioxide (22-30) mmol/L Glucose (74-99) mg/dL POC Glucose (mg/dL) 169 H 165 H 193 H (70-110) mg/dL Calcium (8.4-10.2) mg/dL Total Protein (6.3-8.2) g/dL Albumin (3.5-5.0) g/dL 02/07/22 02/07/22 02/07/22 Range/Units 07:00 07:00 07:04 RBC 2.40 L (4.30-5.90) m/uL Hgb 7.3 L (13.0-17.5) gm/dL Hct 23.7 L (39.0-53.0) % MCHC 30.7 L (31.0-37.0) g/dL RDW 16.9 H (11.5-15.5) % Lymphocytes # 0.7 L (1.0-4.8) k/uL Carbon Dioxide 21 L (22-30) mmol/L Glucose 156 H (74-99) mg/dL POC Glucose (mg/dL) 176 H (70-110) mg/dL Calcium 7.8 L (8.4-10.2) mg/dL Total Protein 5.0 L (6.3-8.2) g/dL Albumin 2.8 L (3.5-5.0) g/dL Assessment and Plan Plan: Postoperative day #7, status post redo sternotomy, extraction of previous prosthetic aortic valve, and replacement with a 21 mm pericardial bioprosthesis aortic valve. Postthoracotomy. The patient is currently on room air oxygen. Surgical site is likely an intact. The patient's chest x-ray shows some mild interstitial prominence and the patient has signs of fluid overload on his x-ray and clinically in his scrotal area on his lower extremities and the patient is c urrently on IV Lasix 40 mg every 12 hours. Shunt is in a slight negative balance. Chest x-ray findings are stable, slightly improved on today's evaluation. Acute prosthetic aortic valve endocarditis, secondary to Enterococcus faecalis. The patient remains on IV ampicillin/rocephin Prior history of aortic valve replacement, 4 years ago for aortic stenosis. High-grade AV block, secondary to endocarditis. Acute encephalopathy, secondary to endocarditis and sepsis. History of COPD, stable. Essential hypertension. Type 2 diabetes mellitus. BPH. Seasonal ALLERGIC rhinitis. Plan: Suggest a transthoracic echocardiogram to evaluate the aortic valve function especially with his ongoing edema. The patient is currently RA oxygen The patient is using the incentive spirometer IV Lasix to be continued Epicardial leads removed Hemodynamically stable Cardiac rhythm is fairly high degree AV block and the patient will need a pacemaker insertion and this will be discussed with cardiology. The blood cultures are negative and the patient should be able to have a pacemaker inserted in 4-6 weeks Chest x-ray is essentially showing postsurgical changes. There is some mild pulmonary vascular congestion Continue Levemir insulin 24 units for blood sugar control in addition to NovoLog 5 units with meals Hydrocodone for pain control No beta blockers for now Increase mobility will continue to follow.
[2022-02-07] MEDS: HEPARIN SODIUM,PORCINE/PF 5,000 UNIT/0.5 ML SYRINGE SQ SCH ×2 (08:45→15:29)
[2022-02-07] MEDS: allopurinoL 100 MG TAB PO SCH (08:48)
[2022-02-07] MEDS: ASPIRIN 325 MG TAB PO SCH (08:48)
[2022-02-07] MEDS: DOXAZOSIN 4 MG TAB PO SCH ×2 (08:49→20:08)
[2022-02-07] MEDS: CLOTRIMAZOLE 1% CREAM 30 GM TUBE TOPICAL SCH ×2 (08:49→20:11)
[2022-02-07] MEDS: ATORVASTATIN 40 MG TAB PO SCH (08:49)
[2022-02-07] MEDS: MONTELUKAST 10 MG TAB PO SCH (08:50)
[2022-02-07] MEDS: TAMSULOSIN 0.4 MG CAP.ER.24H PO SCH (08:50)
[2022-02-07] MEDS: FINASTERIDE 5 MG TAB PO SCH (08:50)
[2022-02-07] MEDS: guaiFENesin 600 MG TABLET.ER PO SCH ×2 (08:50→20:08)
[2022-02-07] MEDS: LOSARTAN 50 MG TAB PO SCH (08:50)
[2022-02-07] MEDS ORDERED: LOSARTAN 50 MG TAB PO STA (08:55)
--- NOTE | 2022-02-07 08:59 | P.PN ---
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 History of severe aortic valve stenosis status post aortic valve replacement with a 23 mm Inspiris bioprosthetic aortic valve in November 2017, CAD with mid RCA stenosis 50% and previous PCI in 2018, hypertension, hyperlipidemia, insulin-dependent diabetes mellitus type 2, obesity, obstructive sleep apnea without CPAP use, moderate COPD, asthma, previous tobacco dependence, benign prostatic hypertrophy, UTIs with pseudomonas in 01/2020, gout, bilateral internal carotid stenosis 50-70%. POD #7 redo sternotomy, excision of the previous 23 mm Inspiris pericardial bioprosthesis and debridement of the annulus, aortic valve replacement using a 21 mm Inspiris pericardial bioprosthesis Postoperative acute blood loss anemia, expected given hemodilution and cardiopulmonary bypass pump POD #3 externalized pacemaker implant via right axillary vein by Dr. Scruggs The patient was seen and examined in follow-up today 02/07/2022 at his bedside in the intensive care unit. Denies any complaints of shortness of breath at this time although is complaining of some discomfort to his scrotum from edema. He remains with 2-3+ anasarca. The edema seems slightly improved from yesterday. He remains on Lasix 40 mg IV every 12 hours. Currently he is sitt ing up to the bedside chair, is awake, alert, oriented 3 and is in no acute distress. Oxygen saturations are 96% on room air and he is achieving 1500 mL on his incentive spirometry with encouragement. He is also been encouraged to use his flutter valve present at his bedside. Bedside telemetry continues to show a ventricularly paced rhythm heart rate 80 BPM. Right upper chest temporary pacemaker remains in place with dressing clean, dry and intact, with a VVI setting of 80 BPM. Atrial and ventricular epicardial pacemaker wires were removed yesterday without incident. The patient reports his appetite is somewhat improved today and he tolerated around three quarters of his breakfast. Laboratory results morning show a WBC count of 5.4, hemoglobin 7.3, hematocrit 23.7, platelets 207, sodium 137, potassium 4.2, CO2 21, BUN 16, creatinine 0.96, glucose 156, calcium 7.8, and albumin 2.8. He has been afebrile last 24 hours, additional blood culture result showed positive for enterococcus faecalis, and subsequent blood cultures were negative. His excised aortic valve culture showed positive for enterococcus faecalis and he remains on ampicillin and Rocephin for antibiotic coverage. Objective - Vital Signs Vital signs: Vital Signs Temp 98.2 F 02/07/22 04:00 Pulse 80 02/07/22 07:39 Resp 13 02/07/22 07:00 BP 142/74 02/07/22 07:00 Pulse Ox 97 02/07/22 07:29 FiO2 50 01/31/22 17:00 Intake & Output 02/06/22 02/07/22 02/07/22 18:59 06:59 18:59 Intake Total 1260 390 Output Total 1025 1000 Balance 235 -610 Weight 114.3 kg Intake: IV 440 190 Ampicillin 2,000 mg In 300 100 Sodium Chloride 0.9% 100 ml @ 200 mls/hr IVPB Q4HR [facility] Rx#:[id number] Sodium Chloride 0.9% 1, 40 40 000 ml @ 20 mls/hr IV . Q24H [facility] Rx#:[id number] cefTRIAXone 2 gm In 100 50 Sodium Chloride 0.9% 50 ml @ 100 mls/hr IVPB Q12HR [facility] Rx#:[id number] Oral 820 200 Output: Urine 1025 1000 Other: Voiding Method Bedside Commode Bedside Commode Urinal Urinal # Voids 1 0 # Bowel Movements 1 ABP, PAP, CO, CI - Last Documented Arterial Blood Pressure 167/54 Pulmonary Artery Pressure 36/15 Cardiac Output 5.5 Cardiac Index 2.5 - Exam CONSTITUTIONAL: Sitting to the bedside chair in the intensive care unit, appears comfortable, cooperative, no apparent acute distress. HEENT: Neck is supple, no JVD, no lymphadenopathy. RESPIRATORY: Lungs sounds essentially clear throughout, diminished to his bi lateral bases. Respirations are symmetrical and nonlabored. Currently on room air with oxygen saturations 96%. Able to achieve 1250 mL on his incentive spirometry. Strong cough. CARDIOVASCULAR: Regular rhythm and rate. S1 and S2 present, negative for S3, or gallop. Soft systolic murmur heard best to his left sternal border. Palpable peripheral pulses bilaterally, 2 to 3+ anasarca. No calf pain or tenderness noted. Sequential compression devices and thigh-high KAMRAN hose in place to his b ilateral lower extremities. Telemetry showing 100% ventricular paced rhythm with a heart rate of 80 BPM. GASTROINTESTINAL: Abdomen soft, nontender, nondistended. Active bowel sounds present 4 quadrants. Tolerating diet. Passing flatus. No guarding or rigidity. Bowel movement today 02/07/2022. GENITOURINARY: Continues to void. 1000 mL of urine output in the last 8 hours. INTEGUMENTARY: Skin is warm and dry with no evidence of clubbing or cyanosis. Midline sternal incision is clean, dry and approximated. No redness or drainage present. Right upper anterior chest temporary pacemaker insertion site dressing clean, dry and intact. MUSKULOSKELETAL: Able to move all extremities, strength equal bilaterally, generalized weakness. PSYCHIATRIC: Alert and oriented to person place and time, appropriate affect, intact judgment and insight. INVASIVE LINES AND TUBES: External pacemaker present to right upper anterior chest, dressing dry and intact. Right arm midline IV in place and functioning. - Allied health notes Allied health notes reviewed: nursing - Labs CBC & Chem 7: 02/07/22 07:00 02/06/22 03:23 Labs: Abnormal Lab Results - Last 24 Hours (Table) 02/06/22 02/06/22 02/06/22 Range/Units 11:24 16:27 20:29 RBC (4.30-5.90) m/uL Hgb (13.0-17.5) gm/dL Hct (39.0-53.0) % MCHC (31.0-37.0) g/dL RDW (11.5-15.5) % Lymphocytes # (1.0-4.8) k/uL POC Glucose (mg/dL) 169 H 165 H 193 H (70-110) mg/dL 02/07/22 02/07/22 Range/Units 07:00 07:04 RBC 2.40 L (4.30-5.90) m/uL Hgb 7.3 L (13.0-17.5) gm/dL Hct 23.7 L (39.0-53.0) % MCHC 30.7 L (31.0-37.0) g/dL RDW 16.9 H (11.5-15.5) % Lymphocytes # 0.7 L (1.0-4.8) k/uL POC Glucose (mg/dL) 176 H (70-110) mg/dL - Imaging and Cardiology Chest x-ray: image reviewed Assessment and Plan Assessment: 1. 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 Bacteremia with enterococcus faecalis, blood cultures currently negative to date. Final culture on the excised aortic valve showed enterococcus faecalis 3. Moderate mitral valve regurgitation 4. Altered mental status present on admission, resolved 5. History of severe aortic valve stenosis status post aortic valve replacement with a 23 mm Inspiris bioprosthetic aortic valve in November 2017 6. CAD with mid RCA stenosis 50% and previous PCI in 2018 7. Hypertension 8. Hyperlipidemia, treated, cholesterol 86, LDL 39 9. Insulin-dependent diabetes mellitus type 2, preoperative hemoglobin A1c 7.8% 10. Obesity 11. Obstructive sleep apnea without CPAP use 12. Moderate COPD, FEV1 59% of predicted 13. Asthma 14. Previous tobacco dependence 15. Benign prostatic hypertrophy, currently on Flomax, Cardura, Proscar 16. UTIs with pseudomonas in 01/2020 17. Gout 18. Bilateral internal carotid stenosis 50-70% 19. Postoperative acute blood loss anemia, expected given hemodilution and cardiopulmonary bypass pump 20. Medical debility, will need inpatient rehab on discharge Plan: 1. Continue to maximize medical therapy with aspirin, statin, Plavix, and Cozaar. We will increase his Cozaar to 100 mg by mouth daily. 2. Encourage use of his incentive spirometry 10 times every hour while awake. Bronchodilators per pulmonology 3. Increase activity, ambulate as tolerated. PT/OT/cardiac rehab following. Patient needs lots of encouragement. Patient may not lift his right arm above the level of his heart due to pacemaker 4. Will monitor daily labs and chest x-rays. Electrolyte replacement per protocol. Continue Lasix 40 mg IV twice a day. 5. Continue ampicillin and Rocephin per infectious disease recommendations. Right arm midline catheter placed on 02/05/2022 for outpatient antibiotics. 6. GI and DVT prophylaxis. 7. Pain control current medication regimen. 8. Insulin management per primary care service. Preoperative hemoglobin A1c was 7.8%. 9. Patient will have permanent pacemaker placement by Dr. Scruggs once he is off IV antibiotics. Dressing over the externalized pacemaker to be changed by Dr. Scruggs only. 10. Zoloft 50 mg by mouth daily started. 11. Discharge planning is in place, anticipate discharge to [facility] inpatient rehab when ready for discharge. 12. Continue to record strict accurate intake and output, may bladder scan and straight cath for greater than 300 mL residual 13. Daily weights. Shower daily. 14. Limited transthoracic 2-D echocardiogram ordered by pulmonary/critical care medicine. 15. More recommendations to follow based on patient's clinical course. Time with Patient: Greater than 30
[2022-02-07] MEDS ORDERED: FUROSEMIDE 10 MG/ML 4 ML VIAL IV SCH (09:00)
--- NOTE | 2022-02-07 09:28 | XR ---
EXAMINATION TYPE: XR chest 1V portable DATE OF EXAM: 02/07/2022 COMPARISON: 02/06/2022 HISTORY: Postcardiac surgery TECHNIQUE: Single frontal view of the chest is obtained. FINDINGS: A right-sided cardiac device is seen in this postoperative changes with cardiomegaly. Bila teral small effusions and left basilar consolidation. No pneumothorax. Additional pattern. IMPRESSION: 1. Cardiomegaly with bilateral infiltrate and pleural effusion stable correlate for mild venous conge stion.
[2022-02-07] MEDS: SERTRALINE 50 MG TAB PO SCH (10:19)
[2022-02-07 11:01] LABS: Glucose,Whole Blood 163 mg/dL (70-110)
--- NOTE | 2022-02-07 11:47 | P.PN ---
Subjective Progress Note Date: 02/07/22 The patient is a 76-year-old male follows in the office with Dr. Cárdenas. 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 TVP was placed for second-degree heart block. On 01/31/2022 he underwent redo aortic valve replacement with Dr. Lopez. Postoperatively the patient has been pacemaker dependent with third- degree heart block. He underwent externalized pacemaker implantation with Dr. Scruggs on 02/04/2022. The patient was interviewed and examined sitting comfortably in the recliner chair. He continues to report being weak and tired. He denies any chest pain or chest pressure. He states he does have shortness of breath when ambulating around the unit. No dizziness when standing. GENERAL: Well-appearing, well-nourished and in no acute distress. NECK: Supple without JVD or thyromegaly. LUNGS: Breath sounds clear to auscultation bilaterally. Respiration equal and unlabored. Bilateral rhonchi. HEART: Regular rate and rhythm without rubs or gallops. S1 and S2 heard. Systolic murmur. Sternal incision approximated. EXTREMITIES: Normal range of motion, +2 generalized edema. Severe scrotal edema. No clubbing or cyanosis. Peripheral pulses intact and strong. VITALS: Blood pressure 111/99, pulse 91, respiratory rate 17 TELEMETRY: Ventricular paced rhythm. Runs of bigeminy and trigeminy. LABS: WBC 5.4, hemoglobin 10.3, hematocrit 23.7, platelet 207, sodium 137, potassium 4.2, BUN 16, creatinine 0.96, AST 25, ALT 23 IMPRESSION: Infective endocarditis, enterococcus faecalis Redo aortic valve replacement Advanced heart block, status post pacemaker implantation Frequent PVC's History of coronary artery disease History of diabetes mellitus PLAN: Additional 40 mg IV push of furosemide in the morning, increasing his daily dose to 80 mg every morning and 40 mg in the morning Pacemaker dressing changes to be completed by Dr. Scruggs only Recommend aggressive pulmonary hygiene Recommend ambulation Further recommendations to be based on clinical course I am dictating on behalf of Dr Grey Scruggs's history/physical and assessment/plan. Objective - Vital Signs Vital signs: Vital Signs Temp 97.8 F 02/07/22 08:00 Pulse 82 02/07/22 11:00 Resp 16 02/07/22 11:00 BP 111/99 02/07/22 10:00 Pulse Ox 96 02/07/22 11:00 FiO2 50 02/07/22 11:00 Intake & Output 02/06/22 02/07/22 02/07/22 18:59 06:59 18:59 Intake Total 1260 390 150 Output Total 1025 1000 1350 Balance 235 -610 -1200 Weight 114.3 kg 114 kg Intake: IV 440 190 150 Ampicillin 2,000 mg In 300 100 100 Sodium Chloride 0.9% 100 ml @ 200 mls/hr IVPB Q4HR [facility] Rx#:[id number] Sodium Chloride 0.9% 1, 40 40 000 ml @ 20 mls/hr IV . Q24H [facility] Rx#:[id number] cefTRIAXone 2 gm In 100 50 50 Sodium Chloride 0.9% 50 ml @ 100 mls/hr IVPB Q12HR [facility] Rx#:[id number] Oral 820 200 Output: Urine 1025 1000 1350 Other: Voiding Method Bedside Commode Bedside Commode Bedside Commode Urinal Urinal Urinal # Voids 1 0 # Bowel Movements 1 1 ABP, PAP, CO, CI - Last Documented Arterial Blood Pressure 167/54 Pulmonary Artery Pressure 36/15 Cardiac Output 5.5 Cardiac Index 2.5 - Labs CBC & Chem 7: 02/07/22 07:00 02/07/22 07:00 Labs: Abnormal Lab Results - Last 24 Hours (Table) 02/06/22 02/06/22 02/07/22 Range/Units 16:27 20:29 07:00 RBC 2.40 L (4.30-5.90) m/uL Hgb 7.3 L (13.0-17.5) gm/dL Hct 23.7 L (39.0-53.0) % MCHC 30.7 L (31.0-37.0) g/dL RDW 16.9 H (11.5-15.5) % Lymphocytes # 0.7 L (1.0-4.8) k/uL Carbon Dioxide (22-30) mmol/L Glucose (74-99) mg/dL POC Glucose (mg/dL) 165 H 193 H (70-110) mg/dL Calcium (8.4-10.2) mg/dL Total Protein (6.3-8.2) g/dL Albumin (3.5-5.0) g/dL 02/07/22 02/07/22 02/07/22 Range/Units 07:00 07:04 11:00 RBC (4.30-5.90) m/uL Hgb (13.0-17.5) gm/dL Hct (39.0-53.0) % MCHC (31.0-37.0) g/dL RDW (11.5-15.5) % Lymphocytes # (1.0-4.8) k/uL Carbon Dioxide 21 L (22-30) mmol/L Glucose 156 H (74-99) mg/dL POC Glucose (mg/dL) 176 H 163 H (70-110) mg/dL Calcium 7.8 L (8.4-10.2) mg/dL Total Protein 5.0 L (6.3-8.2) g/dL Albumin 2.8 L (3.5-5.0) g/dL
[2022-02-07] MEDS ORDERED: FUROSEMIDE 10 MG/ML 4 ML VIAL IV STA ×2 (12:16→17:44)
--- NOTE | 2022-02-07 14:37 | P.PN ---
Subjective Progress Note Date: 02/07/22 HISTORY OF PRESENT ILLNESS This is a 76-year-old male patient with past medical history of hypertension with hypertensive cardiovascular disease, hyperlipidemia, diabetes mellitus type 2 with diabetic polyneuropathy, enlarged prostate, history of aortic valve disease status post aortic valve replacement with a 23 mm valve on 12/04/2017, prior to that, left heart catheterization revealed 30-40% stenosis in the RCA in 2018, history of melanoma status post resection 12/07/2021, from the back. Patient initially presented to [facility] with mental status changes with significant encephalopathy. CAT scan of the brain did not show any acute infarct or bleed. Patient did have leukocytosis and low-grade fever. He is status post IV fluid resuscitation, he was started on IV antibiotics initially in the form of Levaquin and subsequently changed to ampicillin and ce ftriaxone by Dr. Cunningham. EKG did not show any evidence of acute changes. CAT scan of the chest abdomen and pelvis showed some perinephric stranding without evidence of hydronephrosis, there was evidence of diverticulosis without diverticulitis. CAT scan of the chest showed evidence of cardiomegaly with bilateral pleural effusion and possible pulmonary fibrosis. CAT scan of the cervical spine did show evidence of spondylosis of cervical spine without evidence of fracture. CAT scan of the brain showed brain atrophy without evidence of acute infarct or bleed, small vessel disease present. Patient was initially admitted to [facility] where he was followed by infectious disease as well as cardiology. He underwent a REESE on 01/22 revealed left ventricular systolic function normal at 55-60%, small aortic valve vegetation was present measuring 0.53 cm. Patient has bioprosthetic aortic valve. Moderate MR, [id number] tricuspid regurgitation, no pericardial effusion. Patients blood cultures were positive for enterococcus species. Patient was in a sinus rhythm with a first-degree AV block but subsequently developed a high-grade AV block on 01/24 with progressive worsening of the AV block and PVCs. Patient is complaining of left lower rib cage chest discomfort. No palpitations or dizziness. Patient was then transferred to [facility] to be evaluated by cardiothoracic surgery team. Patient is seen today in the intensive care unit, consults added for cardiology, flotation tender, cardiothoracic surgery. 01/25: Patient is seen today in the ICU. He states he slept well last night. He states he is better able to take a deep breath with less pain on his left chest wall. He is able to reach 1500 MLS on incentive spirometry. He is complaining of tingling in bilateral feet. Has not had a bowel movement but feels that he needs to today. Senokot scheduled added. Blood sugar was low this morning and glimepiride decreased to 2 mg twice daily and Levemir decreased to 20 units. Patient has an external catheter in place draining clear emily urine. He has been evaluated by cardiology, cardiothoracic surgery and flotation tender. Cardiology is planning for temporary pacemaker. C plan to continue close monitoring in the intensive care unit, monitor results of the blood cultures.hest x-ray reveals postoperative changes similar to prior exam. There may be some interstitial changes. Carotid ultrasound reveals slight elevated velocity in the internal carotid arteries bilaterally suggestive of 50-70 percent stenosis. There is antegrade flow in the vertebral arteries. Panorex CAT scan completed without any significant abnormalities. Arterial ultrasound bilateral lower extremities revealed normal ankle brachial indices. 01/26: Patient is lying down in bed in no acute distress, yesterday underwent temporary TVP for 2nd degree AV block, plan is to repeat REESE for further evaluation of possible abscess formation and the degree of involvement of the aortic ring of the bioprosthetic aortic valve, we will continue with IV Rocephin and Ampicillin for now, repeated blood cltures from 01/24/2022 still no growth so far, also nasal screen negative for MSSA.MRSA, bedside spirometer showed FEV2 38 % of predicted, we will continue with aggressive pulmonary toiletting, patient has been seen by multiple services , prognosis continues to be guarded, spoke with his daughter and his over the phone , they are contemplating if he should go to a [place] [facility] like [facility] or [facility], our cardiothoracic team is involved and hopefully will see patient today and alleviate his concerns and give their recommendations on surgical intervention. 01/28: The patient remains in the intensive care unit patient has been afebrile, heart rate 70s, blood pressure 157/77, pulse ox 94% on room air. hand fabric cutter is a paced rhythm. Cardiac catheterization, performed on 01/27, reveals moderate disease in the mid RCA, no evidence of high-grade stenosis in the LAD or left circumflex and placement of a temporary pacemaker. Patient will be seen by a dentist this afternoon. He is utilizing his incentive spirometry regularly and reaching 2000 2500. He is eating all of his food. He states he had a bowel movement yesterday and today. He is urinating without any difficulty. Patient is expecting to be seen by Dr. Lopez to discuss surgical options. WBC 6.4, hemoglobin 0.5, platelet count 235. BMP within normal limits. Calcium 8.2. Capillary blood glucose running between 126 and 196. Blood culture obtained on 01/24 showing no growth after 72 hours 1 specimen. 01/29: Patient was seen by the dentist yesterday and was cleared by surgery. He complains of dry mouth when he woke up this morning but otherwise no new complaints. hand fabric cutter is paced rhythm. Pulse ox 95% on room air. Blood pressure elevated 182/87. Hydrochlorothiazide 25 mg added to his blood pressure regime. Repeat blood work reveals WBC 5.3, hemoglobin 11.7, platelet count 230. Electrolytes and renal function normal. Capillary blood glucose running between 97-194. Patient is waiting to hear from the cardiothoracic team regarding plan for surgery. 01/30: Patient is scheduled for redo aortic valve replacement, possible aortic root replacement on 01/31. a consult was added for urology yesterday for recurrent UTIs. Patient denies dysuria, he is able to void spontaneously and is maintained on Flomax and Proscar. Dr. Farooq believes the culture from 2019 is contamination rather than actual UTI with history of phimosis contributing to positive culture. Plan to follow up with Dr. Emmanuel as normally scheduled. patient is continued on antibiotics the form of ampicillin and Rocephin. patient has remained afebrile. Pulse ox is 97% on room air. CM paced rhythm. Blood pressure 140/67 and has been improved overnight with addition of hydrochlorothiazide yesterday. Repeat blood work reveals WBC 6.1, hemoglobin 11.7, platelet count 237. Electrolytes and renal function are normal with creatinine of 1.08. White blood glucose running between 109 and 177. 01/31: Patient remains afebrile overnight with heart rate 49-54. Blood pressure 139/69 and pulse ox 94% on room air. Repeat blood work reveals WBC 5.0, hemoglobin 11.1, platelet count 246. Sodium 136, potassium 4.4, chloride 103, CO2 24, BUN 29 creatinine 1.05. Blood sugar 122. Capillary blood glucose running between 106 and 166. Patient is scheduled for redo aortic valve replacement today. 02/01: Patient is status post aortic valve replacement with bioprosthetic device. He remains in the intensive care unit. He was successfully extubated last evening and currently on 2 L nasal cannula with pulse ox of 97%. Heart rate is running in the 80s, blood pressure 114/60. hand fabric cutter is paced rhythm. Repeat blood work reveals WBC 6.3, hemoglobin 7.3, platelet count 150. Sodium 136, potassium 4.7, chloride 108, CO2 22, BUN 20 creatinine 1.17. Capillary blood glucose running between 110 and 127. Magnesium 2.6. Intraoperative tissue cultures are in process. Repeat chest x-ray reveals postoperative changes with bilateral infiltrate and small effusions. Patient has been started on Plavix, aspirin 325 mg daily, patient started on insulin drip, Levemir and Farxiga discontinued. The patient is complaining of sensation like urethral spasm like he has a urinary tract infection, Hargrove catheter is in place and draining. No hematuria. Patient states he is only sleeping a few minutes at a time. He does not have much appetite. 02/02 : Patient is feeling weak today , somewhat forgetful, did receive one unit of PRBC, chest tubes were removed and he will be switched to Levemir 24 units sc qhs and Novolog 5 units AC meals plus SSI and he will comeoff insulin drip, he continues to have dysuria, has Hargrove catheter in place and we will continue to have chronic phimosis that will require surgery down the line. 02/04: Patient is resting recliner in the ICU. He states he slept a little bit last night but is consistently not getting much sleep. He states he feels less short of breath today. He is complaining of needing to void but he continues to have a Hargrove catheter in place. He has not had a bowel movement for the last 3- 4 days. Lactulose added. He also states that he continues to have decreased appetite which may improve after having a bowel movement. Patient is scheduled for external pacemaker today with Dr Scruggs. hand fabric cutter is paced rhythm. He is currently on insulin 24 units of Levemir at bedtime along with 5 units of NovoLog with meals and NovoLog scale. Blood Glucose Running between 130 and 203. Repeat Blood Work Reveals WBC 6.2, Hemoglobin 7.8 up to 140. Sodium 130, Potassium 4.1, Chloride 102, CO2 20, BUN 27 Creatinine 1.15. Magnesium 2.6. Patient Received 1 Unit of Packed RBCs Yesterday. Tissue Culture Is Positive for Enterococcus Faecalis. Chest x-ray this morning reveals difficult to exclude pulmonary edema, pneumonia, atelectasis and possible associated effusion. Patient is reaching 1500 mL on incentive spirometry. 02/05: Patient states that he wishes that he felt better. He complains of hacking cough and wheezing and he had a nebulizer treatment a couple hours ago and states it did not help him. He also complains of not being able to sleep. He states he has not had a bowel movement despite multiple medications for bowel regime. Patient have a repeat Dulcolax suppository this morning and lactulose increased to 3 times daily. Hargrove catheter remains in place. Yesterday, patient underwent externalized temporary pacemaker implantation yesterday with Dr. 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 Patient will be able to be discharged with this device in place. Patient remains in the intensive care unit. He's been afebrile, heart rate in the 80s, blood pressure 129/74, pulse ox 98% on 2 L nasal cannula. Repeat blood work reveals WBC 4.9, hemoglobin 7.8, platelet count 153. Sodium 136 otherwise electrolytes and renal function are within normal limits. Calcium is 7.7. Capillary blood glucose running between 90-136. Repeat chest x-ray in pending. 02/06: Patient remains in the intensive care unit, he is seen today for resting in recliner. He continues to state that he is tired and not sleeping. He states he was able to walk around the unit yesterday and did well with physical therapy. Patient was evaluated by Dr. Morgan and appears to be a good candidate waiting for insurance approval. Patient did state he had a bowel movement after multiple medication regime. Hargrove was discontinued yesterday and he's been able to void. Patient does complain of shortness of breath order for Lasix 40 mg IV 1 today and will increase this to 40 mg IV twice daily. Patient has significant 3+ edema, significant edema in the scrotal/penis area. He is able to void despite this edema. Patient states that he has not been eating well and continues to not have any appetite. Patient remains afebrile, heart rate in the 80s, blood pressure 132/86, pulse ox 94% on room air. Repeat blood work reveals WBC 5, hemoglobin 7, platelet count 181. Sodium 135 otherwise electrolytes and renal function are normal. Her blood glucose running between 158 and 221. Levemir will be increased by 2 units. 02/07: Patient remains in the intensive care unit he has been afebrile, heart rate in the 80s, blood pressure 149/72, pulse ox 96% on room air. Repeat blood work reveals WBC 5.4, hemoglobin 7.3 and platelet count 207. Sodium 137, potassium 4.2, chloride 107, CO2 21, BUN 16 creatinine 0.96. Currently blood glucose running between 165 and 193. Repeat chest x-ray reveals cardiomegaly with bilateral infiltrate and pleural effusion stable correlate for mild venous congestion. Pulmonary medicine has suggested a transthoracic echocardiogram to evaluate the aortic valve function especially with his ongoing edema. Echoc ardiogram is being done today. Pacemaker has been turned down to 40 and patient is currently in first grade lock 70 bpm. Lasix has been increased by cardiology to 80 mg in the a.m. and 40 mg in the afternoon. REVIEW OF SYSTEMS Constitutional: No fever, no chills, no night sweats. No weight change. No weakness, denies fatigue no lethargy. Reports daytime sleepiness. EENT: No headache. No blurred vision or double vision, no loss of vision. No loss of Hearing, no ringing in the ears, no dizziness. No nasal drainage or congestion. No epistaxis. No sore throat. Lungs: Reports mild shortness of breath improving, reports cough, no sputum production. Reports wheezing. Cardiovascular: Reports chest discomfort, positive edema. No palpitations. No paroxysmal nocturnal dyspnea. No orthopnea. No lightheadedness or dizziness. No syncopal episodes. Abdominal: No abdominal pain. No nausea, vomiting. No diarrhea. No constipation. No bloody or tarry stools. Reports loss of appetite. Genitourinary: No dysuria, increased frequency, urgency. No urinary retention- Hargrove catheter in place. Musculoskeletal: No myalgias. No muscle weakness, no gait dysfunction, no frequent falls. No back pain. No neck pain. Integumentary: No wounds, no lesions. No rash or pruritus. No unusual bruising. Neurologic: No aphasia. No facial droop. No change in mentation. No head injury. No headache. No paralysis. No paresthesia. Psychiatric: No depression. No anxiety. No mood swings. Reports insomnia Endocrine: Noted abnormal blood sugars. No weight change. No excessive sweating or thirst. No cold intolerance. PHYSICAL EXAMINATION Gen: This is a 76-year-old male. He is resting in ICU bed and appears to be in no acute distress. HEENT: Head is atraumatic, normocephalic. Pupils equal, round. Sclerae is anicteric. NECK: Supple. No JVD. No lymphadenopathy. No thyromegaly. LUNGS: Decrease breath sounds at the bases No wheezes or rhonchi, sternotomy site is covered with dressing HEART: First heart sound is depressed, second heart sound is normal, aortic valve click, systolic ejection murmur 2/6 at the left sternal border. hand fabric cutter is paced rhythm. External pacemaker on the right anterior chest wall covered with dressing. ABDOMEN: Soft. Bowel sounds are present. No masses. No tenderness. Positive edema to the abdomen and back, positive scrotal and penile edema. EXTREMITIES: Bilateral pedal edema. No calf tenderness. Dorsalis pedis +2 bilaterally. Bilateral hand edema. NEUROLOGICAL: Patient is awake, alert and oriented x3. Cranial nerves 2 through 12 are grossly intact. Muscle power 4 out of 5 upper and lower extremities bilaterally. ASSESSMENT AND PLAN 1. POD #7 S/P Redo Sternotomy with excision of 23 mm Inspiris Pericardial Bioprosthetic Aortic valve and Placement of 21 Inspiris pericardial Bioprosthestic valve due to Infective endocarditis with Enterococcus fecalis awith Moderate AI, has been on IV Rocephin and Ampicillin . Patient is continued on IV Lasix 80 mg in the morning and 40 mg in the afternoon, repeat echocardiogram today. 2. Third degree AV block. has a temporary Pacemaker and is status post external temporary pacemaker 02/04. 3. Enterococcus Feacalis Endocarditis and bacteremia. we will continue with Rocephin 2 gr IVPB Q 12 hours and Ampicillin 2 gr IVPB Q 6 hours, ID team is following. 4. Hypertension with hypertensive cardiovascular disease. Continue patient on Hydralazine 50 mg po bid and Cardura 8 mg po bid. 5. Hyperlipidemia. Continue atorvastatin 40 mg at bedtime. 6. Diabetes mellitus type 2. Continue patient on Levemir 26 units Sc qhs , Novolog 5 units AC meals tid along with SSI. 7. Benign prostatic hypertrophy. Continue Flomax 0.4 mg daily, continue finasteride 5 mg daily 8. 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 Continue patient on Symbicort 160- 4.5 g 2 puffs twice daily, albuterol nebulizer every 4 hours as needed for shortness of breath, reviewed bedside spirometery with FEV1 38 % of predicted. 9. ALLERGIC rhinitis. Continue Singulair 10 mg at bedtime. 10. Chronic gout. Continue allopurinol 100 mg daily. 11. DVT prophylaxis. Heparin 5000 units subcu every 8 hours. 12. GI prophylaxis. Protonix 40 mg daily. 13. Acute blood loss Anemia, expected with surgery S/P 3 units of PRBCs. 14. Medical debility.He will require inpatient rehab. CODE STATUS: Full code. DISCHARGE PLAN Most likely Inpatient rehab by end of this week. Impression and plan of care have been directed as dictated by the signing physician. Maria G Paez nurse practitioner acting as scribe for signing physician. Objective - Vital Signs Vital signs: Vital Signs Temp 97.8 F 02/07/22 08:00 Pulse 85 02/07/22 09:00 Resp 23 02/07/22 09:00 BP 149/72 02/07/22 09:00 Pulse Ox 96 02/07/22 09:00 FiO2 50 01/31/22 17:00 Intake & Output 02/06/22 02/07/22 02/07/22 18:59 06:59 18:59 Intake Total 1260 390 100 Output Total 1025 1000 250 Balance 235 -610 -150 Weight 114.3 kg Intake: IV 440 190 100 Ampicillin 2,000 mg In 300 100 100 Sodium Chloride 0.9% 100 ml @ 200 mls/hr IVPB Q4HR [facility] Rx#:[id number] Sodium Chloride 0.9% 1, 40 40 000 ml @ 20 mls/hr IV . Q24H [facility] Rx#:[id number] cefTRIAXone 2 gm In 100 50 Sodium Chloride 0.9% 50 ml @ 100 mls/hr IVPB Q12HR [facility] Rx#:[id number] Oral 820 200 Output: Urine 1025 1000 250 Other: Voiding Method Bedside Commode Bedside Commode Bedside Commode Urinal Urinal Urinal # Voids 1 0 # Bowel Movements 1 1 ABP, PAP, CO, CI - Last Documented Arterial Blood Pressure 167/54 Pulmonary Artery Pressure 36/15 Cardiac Output 5.5 Cardiac Index 2.5 - Labs CBC & Chem 7: 02/07/22 07:00 02/07/22 07:00 Labs: Abnormal Lab Results - Last 24 Hours (Table) 02/06/22 02/06/22 02/06/22 Range/Units 11:24 16:27 20:29 RBC (4.30-5.90) m/uL Hgb (13.0-17.5) gm/dL Hct (39.0-53.0) % MCHC (31.0-37.0) g/dL RDW (11.5-15.5) % Lymphocytes # (1.0-4.8) k/uL Carbon Dioxide (22-30) mmol/L Glucose (74-99) mg/dL POC Glucose (mg/dL) 169 H 165 H 193 H (70-110) mg/dL Calcium (8.4-10.2) mg/dL Total Protein (6.3-8.2) g/dL Albumin (3.5-5.0) g/dL 02/07/22 02/07/22 02/07/22 Range/Units 07:00 07:00 07:04 RBC 2.40 L (4.30-5.90) m/uL Hgb 7.3 L (13.0-17.5) gm/dL Hct 23.7 L (39.0-53.0) % MCHC 30.7 L (31.0-37.0) g/dL RDW 16.9 H (11.5-15.5) % Lymphocytes # 0.7 L (1.0-4.8) k/uL Carbon Dioxide 21 L (22-30) mmol/L Glucose 156 H (74-99) mg/dL POC Glucose (mg/dL) 176 H (70-110) mg/dL Calcium 7.8 L (8.4-10.2) mg/dL Total Protein 5.0 L (6.3-8.2) g/dL Albumin 2.8 L (3.5-5.0) g/dL
[2022-02-07 15:34] LABS: Magnesium 2.2 mg/dL (1.6-2.3); Potassium 4.6 mmol/L (3.5-5.1)
[2022-02-07 16:34] LABS: Glucose,Whole Blood 167 mg/dL (70-110)
[2022-02-07 19:54] LABS: Glucose,Whole Blood 260 mg/dL (70-110)
[2022-02-07] MEDS: BENZOCAINE/MENTHOL LOZENG 1 EACH LOZENGE MUCOUS MEM PRN (20:07)
[2022-02-07] MEDS: MELATONIN 3 MG TABLET PO PRN (20:08)
[2022-02-07] MEDS: SENNOSIDES-DOCUSATE SODIUM 1 EACH TAB PO SCH (20:08)
[2022-02-07] MEDS: INSULIN DETEMIR (LEVEMIR) 100 UNIT/ML SYR SQ SCH (20:08)
[2022-02-08] MEDS: AMPICILLIN 2,000 MG in SODIUM CHLORIDE 0.9% 100 ML IVPB SCH ×7 (04:00→21:37)
[2022-02-08] MEDS: ASCORBIC ACID 500 MG TAB PO SCH ×2 (06:31→17:05)
[2022-02-08] MEDS: FERROUS SULFATE 325 MG TAB PO SCH ×2 (06:31→17:05)
[2022-02-08] MEDS: PANTOPRAZOLE 40 MG TABLET PO SCH (06:31)
[2022-02-08 06:38] LABS: Glucose,Whole Blood 128 mg/dL (70-110)
[2022-02-08] MEDS: INSULIN ASPART (NovoLOG) 100 UNIT/ML VIAL SQ SCH ×7 (06:57→21:38)
[2022-02-08 07:03] LABS: Anisocytosis Slight; HCT 23.1 % (39.0-53.0); HGB 7.4 gm/dL (13.0-17.5); Hypochromasia Marked; MCH 31.9 pg (25.0-35.0); MCHC 32.1 g/dL (31.0-37.0); MCV 99.3 fL (80.0-100.0); Macrocytosis Slight; Mean Platelet Volume 8.7; Platelet Count 213 k/uL (150-450); Poikilocytosis Moderate; RBC 2.32 m/uL (4.30-5.90); RDW 16.7 % (11.5-15.5); WBC 5.5 k/uL (3.8-10.6)
[2022-02-08 07:14] LABS: Albumin 2.8 g/dL (3.5-5.0); Calcium 7.8 mg/dL (8.4-10.2); Potassium 4.3 mmol/L (3.5-5.1); Total Bilirubin 0.5 mg/dL (0.2-1.3); Total Protein 5.1 g/dL (6.3-8.2)
--- NOTE | 2022-02-08 08:05 | XR ---
EXAMINATION TYPE: XR chest 1V portable DATE OF EXAM: 02/08/2022 COMPARISON: Chest x-ray 02/07/2022 HISTORY: Status post aortic valve replacement TECHNIQUE: Single frontal view of the chest is obtained. FINDINGS: Patient is rotated. Transvenous pacemaker lead courses into the right ventricle as on prio r exam, generators in the right pectoral region. There is no evident pneumothorax. Patchy basilar den sity persists on the left. The heart is likely enlarged. Aorta is dense. Mild prominence interstitium is again seen. Patient is post aortic valve replacement. IMPRESSION: Findings similar to prior exam, there may be basilar atelectasis, difficult to exclude s mall effusion. Difficult to exclude mild interstitial edema. Cardiomegaly.
[2022-02-08] MEDS: ACETYLCYSTEINE 800 MG/4 ML VIAL INHALATION SCH ×4 (08:38→20:26)
[2022-02-08] MEDS: IPRATROPIUM-ALBUTEROL 3 ML NEB INHALATION SCH ×4 (08:38→20:26)
[2022-02-08] MEDS: SYMBICORT 160-4.5 MCG INHALER INHALATION SCH ×2 (08:42→20:26)
[2022-02-08] MEDS: allopurinoL 100 MG TAB PO SCH (08:44)
[2022-02-08] MEDS: ASPIRIN 325 MG TAB PO SCH (08:44)
[2022-02-08] MEDS: MONTELUKAST 10 MG TAB PO SCH (08:44)
[2022-02-08] MEDS: guaiFENesin 600 MG TABLET.ER PO SCH ×2 (08:44→21:38)
[2022-02-08] MEDS: TAMSULOSIN 0.4 MG CAP.ER.24H PO SCH (08:45)
[2022-02-08] MEDS: FINASTERIDE 5 MG TAB PO SCH (08:45)
[2022-02-08] MEDS: SERTRALINE 50 MG TAB PO SCH (08:45)
[2022-02-08] MEDS: DOXAZOSIN 4 MG TAB PO SCH ×2 (08:45→22:08)
[2022-02-08] MEDS: LOSARTAN 50 MG TAB PO SCH (08:45)
[2022-02-08] MEDS: ATORVASTATIN 40 MG TAB PO SCH (08:45)
[2022-02-08] MEDS: HEPARIN SODIUM,PORCINE/PF 5,000 UNIT/0.5 ML SYRINGE SQ SCH ×3 (08:46→16:32)
[2022-02-08] MEDS ORDERED: FUROSEMIDE 10 MG/ML 10 ML VIAL IV SCH (09:00)
--- NOTE | 2022-02-08 09:13 | P.PN ---
Subjective Progress Note Date: 02/08/22 02/04/2022, I'm seeing the patient for a follow-up. The patient is postoperative placement and the patient was found also to have an infective endocarditis. The patient is postop day #3 following a noted murmur placement. He had infective endocarditis in the preop blood cultures were negative. The tissue culture from the valve sternotomy positive for enterococcus and the patient is currently on IV Unasyn. The chest x-ray from today shows hepatomegaly and some microvessel congestion. Chest tubes at all removed. No fever. No chills. Is using the incentive spirometer and is pulling approximately 1000. The patient has an underlying cardiac rhythm that is third-degree AV block and the patient will need a pacemaker insertion. Urine output is adequate for now. The patient's has a white cell count of 6.8 with a hemoglobin of 7.8 and the sugar of 114. Platelet count is on 140. Magnesium is 2.6 with a ionized calcium of 4.9. Awake. Alert. His current [place] oxygen. Communicating. He has a right IJ Cordis and he still has an arterial line in his right upper extremity. 02/05/2022, the patient is postop day #5. Doing well. No specific complaints. Room air oxygen with a pulse ox of 99%. Chest x-ray from today is showing cardiomegaly, atelectatic changes in the lung base bilaterally, Ana vessel congestion and small amount of effusion or son the left. The patient has a PICC line in his right upper extremity. The sternotomy wires are also seen. As far as his cardiac rhythm, he continues to be paced. The plan is to ultimately inserted today pacemaker for high degree AV block. He continues to use incentive spirometer. He is afebrile. He has enterococcus on his valve and the patient is currently on IV ampicillin 2 g every 4 hours/Rocephin. The white cell count of 4.9 with a hemoglobin of 7.8 and a platelet count of 153. Sodium is 136 with a BUN of 18 and a creatinine of 1.06. 02/06/2022, the patient is postop day #6. He continues to have a high degree AV block. The patient has a temporary pacemaker in place. He is currently being paced most of the time. Epicardial wires were pulled out. Surgical was obstructing and intact. Remains on a combination of IV Rocephin and ampicillin. His blood work from today shows a hemoglobin of 7 otherwise, 5. Electrolytes are normal. He is using the incentive spirometer. His pulling approximately 1000. Review of the chest x-ray from today and shows some mild interstitial prominence. Otherwise no other acute abnormalities. No pneumothorax. The patient is receiving 40 mg of Lasix IV twice a day. 02/07/2022, the patient is postop day #7. He has been on the same antibiotic coverage includes IV Rocephin and ampicillin. Nofever for now. no diarrhea. No side effects from antibiotic treatment. He continues to be diuresed with Lasix and the patient has been in a slight negative fluid balance. Continues to have edema lower approximately bilaterally. Blood work from today shows a white cell count of 5.47.3 sodium is 137 bicarb was 23 BUN is 16 creatinine 0.9 albumin is 2.5.8. Chest x-ray from today was noted and there is no major interval change. The patient continues to receive Lasix 40 mg IV every 12 hours. He was admitted spirometer. No chest pain. Surgical incisions are clean and intact. He has a percutaneous pacemaker in place. The ultimate goal is to insert a permanent pacemaker once he completes a 4-6 week course of antibiotics. He is awake and alert. No focal neurological deficit. No nausea or vomiting. No diarrhea. Functionality still limited. Pulse ox is 97% on 2 L of oxygen nasal cannula. Epicardial leads were removed. 02/08/2022 , the patient is postop day number 8. he remains on a combination of IV Rocephin and ampicillin. doing well. Afebrile. hemodynamically stable. Cardiac rhythm is still paced. labs from today shows a white cell count of 5.5 w ith a hemoglobin of 7.4. BUN is at 60 with a creatinine of 1.1 penicillin level is at 139. He continues to be on IV Lasix 40 mg every 12 hours. his in a negative fluid balance of 1.3 L. Chest x-ray from today shows cardamom regularly. Atelectatic changes in lung bases bilaterally. interstitial edema has improved significantly. He is awake and alert. his oxygen on room air plan he is pulse oxing about 90%. He continues to use incentive spirometer. Objective - Vital Signs Vital signs: Vital Signs Temp 98.3 F 02/08/22 08:00 Pulse 74 02/08/22 08:51 Resp 18 02/08/22 08:00 BP 140/71 02/08/22 08:00 Pulse Ox 96 02/08/22 08:42 FiO2 50 02/07/22 11:00 Intake & Output 02/07/22 02/08/22 02/08/22 18:59 06:59 18:59 Intake Total 600 1270 Output Total 2410 850 Balance -1810 420 Weight 114 kg 113.2 kg Intake: IV 350 350 Ampicillin 2,000 mg In 300 300 Sodium Chloride 0.9% 100 ml @ 200 mls/hr IVPB Q4HR [facility] Rx#:[id number] cefTRIAXone 2 gm In 50 50 Sodium Chloride 0.9% 50 ml @ 100 mls/hr IVPB Q12HR [facility] Rx#:[id number] Oral 250 920 Output: Urine 2410 850 Other: Voiding Method Bedside Commode Bedside Commode Urinal Urinal # Voids 0 # Bowel Movements 1 ABP, PAP, CO, CI - Last Documented Arterial Blood Pressure 167/54 Pulmonary Artery Pressure 36/15 Cardiac Output 5.5 Cardiac Index 2.5 - Exam No acute distress, oriented 3. Currently on RA HEENT examination is grossly unremarkable. Neck supple. Full range of motion. No adenopathy thyromegaly or neck vein distention. Cardiovascular examination reveals regular rhythm rate. S1-S2 normal. No S3 or S4. Heart rate 87 bpm. Lungs reveal clear breath sounds. Breath sounds are equal bilaterally. No adventitious lung sounds including wheezes rhonchi or crackles. Saturations on 2 L are 96 %. Abdomen soft bowel sounds are heard. No masses or tenderness. Extremities are intact. No cyanosis clubbing or edema. Skin is without rash or lesion. Neurologic examination is brief but nonfocal. - Labs CBC & Chem 7: 02/08/22 06:40 02/08/22 06:40 Labs: Abnormal Lab Results - Last 24 Hours (Table) 02/07/22 02/07/22 02/07/22 Range/Units 11:00 16:32 19:53 RBC (4.30-5.90) m/uL Hgb (13.0-17.5) gm/dL Hct (39.0-53.0) % RDW (11.5-15.5) % Glucose (74-99) mg/dL POC Glucose (mg/dL) 163 H 167 H 260 H (70-110) mg/dL Calcium (8.4-10.2) mg/dL Total Protein (6.3-8.2) g/dL Albumin (3.5-5.0) g/dL 02/08/22 02/08/22 02/08/22 Range/Units 06:37 06:40 06:40 RBC 2.32 L (4.30-5.90) m/uL Hgb 7.4 L (13.0-17.5) gm/dL Hct 23.1 L (39.0-53.0) % RDW 16.7 H (11.5-15.5) % Glucose 115 H (74-99) mg/dL POC Glucose (mg/dL) 128 H (70-110) mg/dL Calcium 7.8 L (8.4-10.2) mg/dL Total Protein 5.1 L (6.3-8.2) g/dL Albumin 2.8 L (3.5-5.0) g/dL Assessment and Plan Plan: Postoperative day #8, status post redo sternotomy, extraction of previous prosthetic aortic valve, and replacement with a 21 mm pericardial bioprosthesis aortic valve. clinically stable. The patient is on room air oxygen. Surgical incisions are clean and intact. Postthoracotomy. The patient is currently on room air oxygen. Surgical site is likely an intact. on IV Lasix 40 mg every 12 hours. Shunt is in a slight negative balance. Chest x-ray findings are stable, slightly improved on today's evaluation. no evidence of any pneumothorax. Interstitial edema is improved. Acute prosthetic aortic valve endocarditis, secondary to Enterococcus faecalis. The patient remains on IV ampicillin/rocephin Prior history of aortic valve replacement, 4 years ago for aortic stenosis. High-grade AV block, secondary to endocarditis. Acute encephalopathy, secondary to endocarditis and sepsis. History of COPD, stable. Essential hypertension. Type 2 diabetes mellitus. BPH. Seasonal ALLERGIC rhinitis. Plan: echo of the heart was completed yesterday, the results are still pending. The patient continues to have admitted amount of lower extremity and scrotal edema. Diuresis is suboptimal while being on Lasix 40 mg IV every 12 hours. we'll keep the same frequency of Lasix twice a day at a dose of 40 mg. Add Zaroxolyn 2.5 mg twice a day half an hour prior to given Lasix. we'll continue monitoring electrolytes. Monitor the fluid balance. Monitor the edema. The patient is currently RA oxygen The patient is using the incentive spirometer Epicardial leads removed Hemodynamically stable Cardiac rhythm is fairly high degree AV block and the patient will need a pacemaker insertion and this will be discussed with cardiology. The blood cultures are negative and the patient should be able to have a pacemaker inserted in 4-6 weeks Chest x-ray is essentially showing postsurgical changes. There is some mild pulmonary vascular congestion is improving Continue Levemir insulin 24 units for blood sugar control in addition to NovoLog 5 units with meals Hydrocodone for pain control No beta blockers for now Increase mobility will continue to follow.
--- NOTE | 2022-02-08 09:35 | P.PN ---
Subjective Progress Note Date: 02/08/22 HISTORY OF PRESENT ILLNESS This is a 76-year-old male patient with past medical history of hypertension with hypertensive cardiovascular disease, hyperlipidemia, diabetes mellitus type 2 with diabetic polyneuropathy, enlarged prostate, history of aortic valve disease status post aortic valve replacement with a 23 mm valve on 12/04/2017, prior to that, left heart catheterization revealed 30-40% stenosis in the RCA in 2018, history of melanoma status post resection 12/07/2021, from the back. Patient initially presented to [facility] with mental status changes with significant encephalopathy. CAT scan of the brain did not show any acute infarct or bleed. Patient did have leukocytosis and low-grade fever. He is status post IV fluid resuscitation, he was started on IV antibiotics initially in the form of Levaquin and subsequently changed to ampicillin and ce ftriaxone by Dr. Cunningham. EKG did not show any evidence of acute changes. CAT scan of the chest abdomen and pelvis showed some perinephric stranding without evidence of hydronephrosis, there was evidence of diverticulosis without diverticulitis. CAT scan of the chest showed evidence of cardiomegaly with bilateral pleural effusion and possible pulmonary fibrosis. CAT scan of the cervical spine did show evidence of spondylosis of cervical spine without evidence of fracture. CAT scan of the brain showed brain atrophy without evidence of acute infarct or bleed, small vessel disease present. Patient was initially admitted to [facility] where he was followed by infectious disease as well as cardiology. He underwent a REESE on 01/22 revealed left ventricular systolic function normal at 55-60%, small aortic valve vegetation was present measuring 0.53 cm. Patient has bioprosthetic aortic valve. Moderate MR, [id number] tricuspid regurgitation, no pericardial effusion. Patients blood cultures were positive for enterococcus species. Patient was in a sinus rhythm with a first-degree AV block but subsequently developed a high-grade AV block on 01/24 with progressive worsening of the AV block and PVCs. Patient is complaining of left lower rib cage chest discomfort. No palpitations or dizziness. Patient was then transferred to [facility] to be evaluated by cardiothoracic surgery team. 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 01/25: Patient is seen today in the ICU. He states he slept well last night. He states he is better able to take a deep breath with less pain on his left chest wall. He is able to reach 1500 MLS on incentive spirometry. He is complaining of tingling in bilateral feet. Has not had a bowel movement but feels that he needs to today. Senokot scheduled added. Blood sugar was low this morning and glimepiride decreased to 2 mg twice daily and Levemir decreased to 20 units. Patient has an external catheter in place draining clear emily urine. He has been evaluated by cardiology, cardiothoracic surgery and firefighter marine. Cardiology is planning for temporary pacemaker. C plan to continue close monitoring in the intensive care unit, monitor results of the blood cultures.hest x-ray reveals postoperative changes similar to prior exam. There may be some interstitial changes. Carotid ultrasound reveals slight elevated velocity in the internal carotid arteries bilaterally suggestive of 50-70 percent stenosis. There is antegrade flow in the vertebral arteries. Panore[employer] CAT scan completed without any significant abnormalities. Arterial ultrasound bilateral lower extremities revealed normal ankle brachial indices. 01/26: Patient is lying down in bed in no acute distress, yesterday underwent temporary TVP for 2nd degree AV block, plan is to repeat REESE for further evaluation of possible abscess formation and the degree of involvement of the aortic ring of the bioprosthetic aortic valve, we will continue with IV Rocephin and Ampicillin for now, repeated blood cltures from 01/24/2022 still no growth so far, also nasal screen negative for MSSA.MRSA, bedside spirometer showed FEV2 38 % of predicted, we will continue with aggressive pulmonary toiletting, patient has been seen by multiple services , prognosis continues to be guarded, spoke with his daughter and his over the phone , they are contemplating if [place] [facility] [place] [facility] or [facility], our cardiothoracic team is involved and hopefully will see patient today and alleviate his concerns and give their recommendations on surgical intervention. 01/28: The patient remains in the intensive care unit patient has been afebrile, heart rate 70s, blood pressure 157/77, pulse ox 94% on room air. child monitor is a paced rhythm. Cardiac catheterization, performed on 01/27, reveals moderate disease in the mid RCA, no evidence of high-grade stenosis in the LAD or left circumflex and placement of a temporary pacemaker. Patient will be seen by a dentist this afternoon. He is utilizing his incentive spirometry regularly and reaching 2000 2500. He is eating all of his food. He states he had a bowel movement yesterday and today. He is urinating without any difficulty. Patient is expecting to be seen by Dr. Lopez to discuss surgical options. WBC 6.4, hemoglobin 0.5, platelet count 235. BMP within normal limits. Calcium 8.2. Capillary blood glucose running between 126 and 196. Blood culture obtained on 01/24 showing no growth after 72 hours 1 specimen. 01/29: Patient was seen by the dentist yesterday and was cleared by surgery. He complains of dry mouth when he woke up this morning but otherwise no new complaints. child monitor is paced rhythm. Pulse ox 95% on room air. Blood pressure elevated 182/87. Hydrochlorothiazide 25 mg added to his blood pressure regime. Repeat blood work reveals WBC 5.3, hemoglobin 11.7, platelet count 230. Electrolytes and renal function normal. Capillary blood glucose running between 97-194. Patient is waiting to hear from the cardiothoracic team regarding plan for surgery. 01/30: Patient is scheduled for redo aortic valve replacement, possible aortic root replacement on 01/31. a consult was added for urology yesterday for recurrent UTIs. Patient denies dysuria, he is able to void spontaneously and is maintained on Flomax and Proscar. Dr. Farooq believes the culture from 2019 is contamination rather than actual UTI with history of phimosis contributing to positive culture. Plan to follow up with Dr. Emmanuel as normally scheduled. patient is continued on antibiotics the form of ampicillin and Rocephin. patient has remained afebrile. Pulse ox is 97% on room air. CM paced rhythm. Blood pressure 140/67 and has been improved overnight with addition of hydrochlorothiazide yesterday. Repeat blood work reveals WBC 6.1, hemoglobin 11.7, platelet count 237. Electrolytes and renal function are normal with creatinine of 1.08. White blood glucose running between 109 and 177. 01/31: Patient remains afebrile overnight with heart rate 49-54. Blood pressure 139/69 and pulse ox 94% on room air. Repeat blood work reveals WBC 5.0, hemoglobin 11.1, platelet count 246. Sodium 136, potassium 4.4, chloride 103, CO2 24, BUN 29 creatinine 1.05. Blood sugar 122. Capillary blood glucose running between 106 and 166. Patient is scheduled for redo aortic valve replacement today. 02/01: Patient is status post aortic valve replacement with bioprosthetic device. He remains in the intensive care unit. He was successfully extubated last evening and currently on 2 L nasal cannula with pulse ox of 97%. Heart rate is running in the 80s, blood pressure 114/60. child monitor is paced rhythm. Repeat blood work reveals WBC 6.3, hemoglobin 7.3, platelet count 150. Sodium 136, potassium 4.7, chloride 108, CO2 22, BUN 20 creatinine 1.17. Capillary blood glucose running between 110 and 127. Magnesium 2.6. Intraoperative tissue cultures are in process. Repeat chest x-ray reveals postoperative changes with bilateral infiltrate and small effusions. Patient has been started on Plavix, aspirin 325 mg daily, patient started on insulin drip, Levemir and Farxiga discontinued. The patient is complaining of sensation like urethral spasm like he has a urinary tract infection, Hargrove catheter is in place and draining. No hematuria. Patient states he is only sleeping a few minutes at a time. He does not have much appetite. 02/02 : Patient is feeling weak today , somewhat forgetful, did receive one unit of PRBC, chest tubes were removed and he will be switched to Levemir 24 units sc qhs and Novolog 5 units AC meals plus SSI and he will comeoff insulin drip, he continues to have dysuria, has Hargrove catheter in place and we will continue to have chronic phimosis that will require surgery down the line. 02/04: Patient is resting recliner in the ICU. He states he slept a little bit last night but is consistently not getting much sleep. He states he feels less short of breath today. He is complaining of needing to void but he continues to have a Hargrove catheter in place. He has not had a bowel movement for the last 3- 4 days. Lactulose added. He also states that he continues to have decreased appetite which may improve after having a bowel movement. Patient is scheduled for external pacemaker today with Dr Scruggs. child monitor is paced rhythm. He is currently on insulin 24 units of Levemir at bedtime along with 5 units of NovoLog with meals and NovoLog scale. Blood Glucose Running between 130 and 203. Repeat Blood Work Reveals WBC 6.2, Hemoglobin 7.8 up to 140. Sodium 130, Potassium 4.1, Chloride 102, CO2 20, BUN 27 Creatinine 1.15. Magnesium 2.6. Patient Received 1 Unit of Packed RBCs Yesterday. Tissue Culture Is Positive for Enterococcus Faecalis. Chest x-ray this morning reveals difficult to exclude pulmonary edema, pneumonia, atelectasis and possible associated effusion. Patient is reaching 1500 mL on incentive spirometry. 02/05: Patient states that he wishes that he felt better. He complains of hacking cough and wheezing and he had a nebulizer treatment a couple hours ago and states it did not help him. He also complains of not being able to sleep. He states he has not had a bowel movement despite multiple medications for bowel regime. Patient have a repeat Dulcolax suppository this morning and lactulose increased to 3 times daily. Hargrove catheter remains in place. Yesterday, patient underwent externalized temporary pacemaker implantation yesterday with Dr. 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 Patient will be able to be discharged with this device in place. Patient remains in the intensive care unit. He's been afebrile, heart rate in the 80s, blood pressure 129/74, pulse ox 98% on 2 L nasal cannula. Repeat blood work reveals WBC 4.9, hemoglobin 7.8, platelet count 153. Sodium 136 otherwise electrolytes and renal function are within normal limits. Calcium is 7.7. Capillary blood glucose running between 90-136. Repeat chest x-ray in pending. 02/06: Patient remains in the intensive care unit, he is seen today for resting in recliner. He continues to state that he is tired and not sleeping. He states he was able to walk around the unit yesterday and did well with physical therapy. Patient was evaluated by Dr. Morgan and appears to be a good candidate waiting for insurance approval. Patient did state he had a bowel movement after multiple medication regime. Hargrove was discontinued yesterday and he's been able to void. Patient does complain of shortness of breath order for Lasix 40 mg IV 1 today and will increase this to 40 mg IV twice daily. Patient has significant 3+ edema, significant edema in the scrotal/penis area. He is able to void despite this edema. Patient states that he has not been eating well and continues to not have any appetite. Patient remains afebrile, heart rate in the 80s, blood pressure 132/86, pulse ox 94% on room air. Repeat blood work reveals WBC 5, hemoglobin 7, platelet count 181. Sodium 135 otherwise electrolytes and renal function are normal. Her blood glucose running between 158 and 221. Levemir will be increased by 2 units. 02/07: Patient remains in the intensive care unit he has been afebrile, heart rate in the 80s, blood pressure 149/72, pulse ox 96% on room air. Repeat blood work reveals WBC 5.4, hemoglobin 7.3 and platelet count 207. Sodium 137, potassium 4.2, chloride 107, CO2 21, BUN 16 creatinine 0.96. Currently blood glucose running between 165 and 193. Repeat chest x-ray reveals cardiomegaly with bilateral infiltrate and pleural effusion stable correlate for mild venous congestion. Pulmonary medicine has suggested a transthoracic echocardiogram to evaluate the aortic valve function especially with his ongoing edema. Echoc ardiogram is being done today. Pacemaker has been turned down to 40 and patient is currently in first grade lock 70 bpm. Lasix has been increased by cardiology to 80 mg in the a.m. and 40 mg in the afternoon. 02/08: Patient remains in the intensive care unit. He states that he is finally feeling better because he slept for 5-6 hours last night. He continues to have significant edema especially concerning to him is the scrotal area. He has able to void on his own. Patient was started on Mucomyst yesterday. Echocardiogram from yesterday revealed Repeat chest x-ray reveals findings similar to prior exam, there may be basilar atelectasis difficult to exclude small effusion. Difficult to exclude mild interstitial edema. Cardiomegaly. Patient remains afebrile, heart rate in the 50s and 60s, blood pressure 99/56, pulse ox 97% on room air. child monitor is sinus rhythm with a first-degree block Repeat blood work reveals WBC 5.5, hemoglobin 7.4, platelet count 213. Electrolytes and renal function are within normal limits. White blood glucose running between 128 and 260. Patient is reaching 1250 on incentive spirometry. REVIEW OF SYSTEMS Constitutional: No fever, no chills, no night sweats. No weight change. No weakness, denies fatigue no lethargy. Reports daytime sleepiness. EENT: No headache. No blurred vision or double vision, no loss of vision. No loss of Hearing, no ringing in the ears, no dizziness. No nasal drainage or congestion. No epistaxis. No sore throat. Lungs: Reports mild shortness of breath improving, reports cough, no sputum production. Reports wheezing. Cardiovascular: Reports chest discomfort, positive edema. No palpitations. No paroxysmal nocturnal dyspnea. No orthopnea. No lightheadedness or dizziness. No syncopal episodes. Abdominal: No abdominal pain. No nausea, vomiting. No diarrhea. No constipation. No bloody or tarry stools. Reports loss of appetite. Genitourinary: No dysuria, increased frequency, urgency. No urinary retention- Hargrove catheter in place. Musculoskeletal: No myalgias. No muscle weakness, no gait dysfunction, no frequent falls. No back pain. No neck pain. Integumentary: No wounds, no lesions. No rash or pruritus. No unusual bruising. Neurologic: No aphasia. No facial droop. No change in mentation. No head injury. No headache. No paralysis. No paresthesia. Psychiatric: No depression. No anxiety. No mood swings. Reports insomnia Endocrine: Noted abnormal blood sugars. No weight change. No excessive sweating or thirst. No cold intolerance. PHYSICAL EXAMINATION Gen: This is a 76-year-old male. He is resting in ICU recliner and appears to be in no acute distress. HEENT: Head is atraumatic, normocephalic. Pupils equal, round. Sclerae is anicteric. NECK: Supple. No JVD. No lymphadenopathy. No thyromegaly. LUNGS: Decrease breath sounds at the bases No wheezes or rhonchi, sternotomy site is covered with dressing HEART: First heart sound is depressed, second heart sound is normal, aortic valve click, systolic ejection murmur 2/6 at the left sternal border. child monitor is paced rhythm. External pacemaker on the right anterior chest wall covered with dressing. ABDOMEN: Soft. Bowel sounds are present. No masses. No tenderness. Positive edema to the abdomen and back, positive scrotal and penile edema. EXTREMITIES: Bilateral pedal edema. No calf tenderness. Dorsalis pedis +2 bilaterally. Bilateral hand edema. NEUROLOGICAL: Patient is awake, alert and oriented x3. Cranial nerves 2 through 12 are grossly intact. Muscle power 4 out of 5 upper and lower extremities bilaterally. ASSESSMENT AND PLAN 1. POD #8 S/P Redo Sternotomy with excision of 23 mm Inspiris Pericardial Bio prosthetic Aortic valve and Placement of 21 Inspiris pericardial Bioprosthestic valve due to Infective endocarditis with Enterococcus fecalis awith Moderate AI, has been on IV Rocephin and Ampicillin . Patient is continued on IV Lasix 80 mg in the morning and 40 mg in the afternoon. 2. Third degree AV block. has a temporary Pacemaker and is status post external temporary pacemaker 02/04. 3. Enterococcus Feacalis Endocarditis and bacteremia. we will continue with Rocephin 2 gr IVPB Q 12 hours and Ampicillin 2 gr IVPB Q 6 hours, ID team is following. 4. Hypertension with hypertensive cardiovascular disease. Continue patient on Hydralazine 50 mg po bid and Cardura 8 mg po bid, losartan 100 mg daily. 5. Hyperlipidemia. Continue atorvastatin 40 mg at bedtime. 6. Diabetes mellitus type 2. Continue patient on Levemir 26 units Sc qhs , Novolog 5 units AC meals tid along with SSI. 7. Benign prostatic hypertrophy. Continue Flomax 0.4 mg daily, continue finasteride 5 mg daily 8. 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 Continue patient on Symbicort 160- 4.5 g 2 puffs twice daily, Mucomyst 200 mg 4 times daily per nebulizer, albuterol nebulizer every 4 hours as needed for shortness of breath, reviewed bedside spirometery with FEV1 38 % of predicted. 9. ALLERGIC rhinitis. Continue Singulair 10 mg at bedtime. 10. Chronic gout. Continue allopurinol 100 mg daily. 11. DVT prophylaxis. Heparin 5000 units subcu every 8 hours. 12. GI prophylaxis. Protonix 40 mg daily. 13. Acute blood loss Anemia, expected with surgery S/P 3 units of PRBCs. 14. Fluid overload secondary to IV fluids, surgical intervention. Patient is continued on Lasix 80 mg in the morning 40 mg in the afternoon. Repeat echocardiogram as above. 15. Medical debility.He will require inpatient rehab. CODE STATUS: Full code. DISCHARGE PLAN Most likely Inpatient rehab Impression and plan of care have been directed as dictated by the signing physician. Maria G Paez nurse practitioner acting as scribe for signing physician. Objective - Vital Signs Vital signs: Vital Signs Temp 98.1 F 02/07/22 20:00 Pulse 58 L 02/07/22 22:00 Resp 11 L 02/07/22 22:00 BP 99/56 02/07/22 22:00 Pulse Ox 97 02/07/22 22:00 FiO2 50 02/07/22 11:00 Intake & Output 02/07/22 02/08/22 02/08/22 18:59 06:59 18:59 Intake Total 600 1270 Output Total 2410 850 Balance -1810 420 Weight 114 kg Intake: IV 350 350 Ampicillin 2,000 mg In 300 300 Sodium Chloride 0.9% 100 ml @ 200 mls/hr IVPB Q4HR [facility] Rx#:[id number] cefTRIAXone 2 gm In 50 50 Sodium Chloride 0.9% 50 ml @ 100 mls/hr IVPB Q12HR [facility] Rx#:[id number] Oral 250 920 Output: Urine 2410 850 Other: Voiding Method Bedside Commode Bedside Commode Urinal Urinal # Voids 0 # Bowel Movements 1 ABP, PAP, CO, CI - Last Documented Arterial Blood Pressure 167/54 Pulmonary Artery Pressure 36/15 Cardiac Output 5.5 Cardiac Index 2.5 - Labs CBC & Chem 7: 02/08/22 06:40 02/08/22 06:40 Labs: Abnormal Lab Results - Last 24 Hours (Table) 02/07/22 02/07/22 02/07/22 Range/Units 07:00 11:00 16:32 RBC (4.30-5.90) m/uL Hgb (13.0-17.5) gm/dL Hct (39.0-53.0) % RDW (11.5-15.5) % Carbon Dioxide 21 L (22-30) mmol/L Glucose 156 H (74-99) mg/dL POC Glucose (mg/dL) 163 H 167 H (70-110) mg/dL Calcium 7.8 L (8.4-10.2) mg/dL Total Protein 5.0 L (6.3-8.2) g/dL Albumin 2.8 L (3.5-5.0) g/dL 02/07/22 02/08/22 02/08/22 Range/Units 19:53 06:37 06:40 RBC 2.32 L (4.30-5.90) m/uL Hgb 7.4 L (13.0-17.5) gm/dL Hct 23.1 L (39.0-53.0) % RDW 16.7 H (11.5-15.5) % Carbon Dioxide (22-30) mmol/L Glucose (74-99) mg/dL POC Glucose (mg/dL) 260 H 128 H (70-110) mg/dL Calcium (8.4-10.2) mg/dL Total Protein (6.3-8.2) g/dL Albumin (3.5-5.0) g/dL 02/08/22 Range/Units 06:40 RBC (4.30-5.90) m/uL Hgb (13.0-17.5) gm/dL Hct (39.0-53.0) % RDW (11.5-15.5) % Carbon Dioxide (22-30) mmol/L Glucose 115 H (74-99) mg/dL POC Glucose (mg/dL) (70-110) mg/dL Calcium 7.8 L (8.4-10.2) mg/dL Total Protein 5.1 L (6.3-8.2) g/dL Albumin 2.8 L (3.5-5.0) g/dL
[2022-02-08] MEDS: CLOTRIMAZOLE 1% CREAM 30 GM TUBE TOPICAL SCH ×2 (09:49→21:39)
[2022-02-08] MEDS ORDERED: metOLazone 2.5 MG TAB PO SCH (10:00)
--- NOTE | 2022-02-08 10:02 | P.PN ---
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 History of severe aortic valve stenosis status post aortic valve replacement with a 23 mm Inspiris bioprosthetic aortic valve in November 2017, CAD with mid RCA stenosis 50% and previous PCI in 2018, hypertension, hyperlipidemia, insulin-dependent diabetes mellitus type 2, obesity, obstructive sleep apnea without CPAP use, moderate COPD, asthma, previous tobacco dependence, benign prostatic hypertrophy, UTIs with pseudomonas in 01/2020, gout, bilateral internal carotid stenosis 50-70%. POD #8 redo sternotomy, excision of the previous 23 mm Inspiris pericardial bioprosthesis and debridement of the annulus, aortic valve replacement using a 21 mm Inspiris pericardial bioprosthesis Postoperative acute blood loss anemia, expected given hemodilution and cardiopulmonary bypass pump POD #4 externalized pacemaker implant via right axillary vein by Dr. Scruggs The patient was seen and examined in follow-up today 02/08/2022 at his bedside in the intensive care unit. Currently the patient is sitting up to bedside chair, is awake, alert, oriented 3 and is eating his breakfast. Denies any complaints of pain or shortness of breath at this time although his continuing to complain of some discomfort with this swelling in his scrotum. He reports he has been up in relating in the intensive care unit hallway with standby assistance from nursing and therapy staff and reports that he tolerated 5 walks yesterday with assistance. He continues to have +2 to +3 anasarca and is receiving Lasix 80 mg in the a.m. IV and 40 mg in the afternoon IV. He remains hemodynamically stable and is currently on no inotropic or pressor support. His losartan was increased to 100 mg by mouth daily yesterday, current blood pressure is 140/71 with a map of 81 mmHg. Bedside telemetry is showing normal sinus rhythm with first-degree heart block and occasional paced beats and PVCs with heart rate in the 70s. Right anterior chest temporary pacemaker is con nected to portable bedside pacemaker generator on a VVI 40 BPM. The pacemaker is being managed by Dr. Scruggs and from cardiology. He continues on ampicillin and Rocephin for antibiotic coverage for history of enterococcus faecalis bacteremia. Most recent blood cultures from 01/24/2022 showed no growth after 144 hours and his aortic valve that was excised showed positive for enteric coccus faecalis on 01/31/2022. He remains afebrile the last 24 hours. Oxygen saturations are 97% on room air and he is achieving 1500 mL on his incentive spirometry up encouragement. Laboratory results morning show a WBC count of 5.5, hemoglobin 7.4, hematocrit 23.1, platelets 213, sodium 139, potassium 4.3, BUN 16, creatinine 1.16, glucose 115, calcium 7.8 and albumin 2.8. He reports that he feels somewhat improved today from yesterday as he was able to get some sleep last night. Objective - Vital Signs Vital signs: Vital Signs Temp 98.3 F 02/08/22 08:00 Pulse 75 02/08/22 09:00 Resp 18 02/08/22 09:00 BP 140/71 02/08/22 09:00 Pulse Ox 95 02/08/22 09:00 FiO2 50 02/07/22 11:00 Intake & Output 02/07/22 02/08/22 02/08/22 18:59 06:59 18:59 Intake Total 600 1270 250 Output Total 2410 850 Balance -1810 420 250 Weight 114 kg 113.2 kg Intake: IV 350 350 50 Ampicillin 2,000 mg In 300 300 Sodium Chloride 0.9% 100 ml @ 200 mls/hr IVPB Q4HR [facility] Rx#:[id number] cefTRIAXone 2 gm In 50 50 50 Sodium Chloride 0.9% 50 ml @ 100 mls/hr IVPB Q12HR [facility] Rx#:[id number] Intake, IV Titration 50 Amount Ampicillin 2,000 mg In 50 Sodium Chloride 0.9% 100 ml @ 200 mls/hr IVPB Q4HR [facility] Rx#:[id number] Oral 250 920 150 Output: Urine 2410 850 Other: Voiding Method Bedside Commode Bedside Commode Bedside Commode Urinal Urinal Urinal # Voids 0 # Bowel Movements 1 ABP, PAP, CO, CI - Last Documented Arterial Blood Pressure 167/54 Pulmonary Artery Pressure 36/15 Cardiac Output 5.5 Cardiac Index 2.5 - Exam CONSTITUTIONAL: Sitting to the bedside chair in the intensive care unit eating his breakfast, appears comfortable, cooperative, no apparent acute distress. HEENT: Neck is supple, no JVD, no lymphadenopathy. RESPIRATORY: Lungs sounds essentially clear throughout, diminished to his bilateral bases, few scattered crackles to his bilateral bases. Respirations are symmetrical and nonlabored. Currently on room air with oxygen saturations 97%. Able to achieve 1500 mL on his incentive spirometry. Strong cough. CARDIOVASCULAR: Regular rhythm and rate. S1 and S2 present, negative for S3, or gallop. Soft systolic murmur heard best to his left sternal border. Palpable peripheral pulses bilaterally, 2 to 3+ anasarca. No calf pain or tenderness noted. Sequential compression devices and thigh-high KAMRAN hose in place to his bilateral lower extremities. Telemetry showing normal sinus rhythm with first- degree heart block, occasional paced beats and occasional PVCs with heart rate in the 70s. Temporary pacemaker remains on VVI backup at 40 BPM. GASTROINTESTINAL: Abdomen soft, nontender, nondistended. Active bowel sounds present 4 quadrants. Tolerating diet. Passing flatus. No guarding or rigidity. Bowel movement today 02/08/2022. GENITOURINARY: Continues to void. 550 mL of urine output in the last 8 hours. INTEGUMENTARY: Skin is warm and dry with no evidence of clubbing or cyanosis. Midline sternal incision is clean, dry and approximated. No redness or drainage present. Right upper anterior chest temporary pacemaker insertion site dressing clean, dry and intact. MUSKULOSKELETAL: Able to move all extremities, strength equal bilaterally, generalized weakness. PSYCHIATRIC: Alert and oriented to person place and time, appropriate affect, intact judgment and insight. INVASIVE LINES AND TUBES: External pacemaker present to right upper anterior ch est, dressing dry and intact. Right arm midline IV in place and functioning. - Allied health notes Allied health notes reviewed: nursing - Labs CBC & Chem 7: 02/08/22 06:40 02/08/22 06:40 Labs: Abnormal Lab Results - Last 24 Hours (Table) 02/07/22 02/07/22 02/07/22 Range/Units 11:00 16:32 19:53 RBC (4.30-5.90) m/uL Hgb (13.0-17.5) gm/dL Hct (39.0-53.0) % RDW (11.5-15.5) % Glucose (74-99) mg/dL POC Glucose (mg/dL) 163 H 167 H 260 H (70-110) mg/dL Calcium (8.4-10.2) mg/dL Total Protein (6.3-8.2) g/dL Albumin (3.5-5.0) g/dL 02/08/22 02/08/22 02/08/22 Range/Units 06:37 06:40 06:40 RBC 2.32 L (4.30-5.90) m/uL Hgb 7.4 L (13.0-17.5) gm/dL Hct 23.1 L (39.0-53.0) % RDW 16.7 H (11.5-15.5) % Glucose 115 H (74-99) mg/dL POC Glucose (mg/dL) 128 H (70-110) mg/dL Calcium 7.8 L (8.4-10.2) mg/dL Total Protein 5.1 L (6.3-8.2) g/dL Albumin 2.8 L (3.5-5.0) g/dL - Imaging and Cardiology Chest x-ray: report reviewed, image reviewed Assessment and Plan Assessment: 1. 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 Bacteremia with enterococcus faecalis, blood cultures currently negative to date. Final culture on the excised aortic valve showed enterococcus faecalis 3. Moderate mitral valve regurgitation 4. Altered mental status present on admission, resolved 5. History of severe aortic valve stenosis status post aortic valve replacement with a 23 mm Inspiris bioprosthetic aortic valve in November 2017 6. CAD with mid RCA stenosis 50% and previous PCI in 2018 7. Hypertension 8. Hyperlipidemia, treated, cholesterol 86, LDL 39 9. Insulin-dependent diabetes mellitus type 2, preoperative hemoglobin A1c 7.8% 10. Obesity 11. Obstructive sleep apnea without CPAP use 12. Moderate COPD, FEV1 59% of predicted 13. Asthma 14. Previous tobacco dependence 15. Benign prostatic hypertrophy, currently on Flomax, Cardura, Proscar 16. UTIs with pseudomonas in 01/2020 17. Gout 18. Bilateral internal carotid stenosis 50-70% 19. Postoperative acute blood loss anemia, expected given hemodilution and cardiopulmonary bypass pump 20. Medical debility, will need inpatient rehab on discharge Plan: 1. Continue to maximize medical therapy with aspirin, statin, Plavix, and Cozaar. 2. Encourage use of his incentive spirometry 10 times every hour while awake. Bronchodilators per pulmonology 3. Increase activity, ambulate as tolerated. PT/OT/cardiac rehab following. Patient needs lots of encouragement. Patient may not lift his right arm above the level of his heart due to pacemaker 4. Will monitor daily labs and chest x-rays. Electrolyte replacement per protocol. Continue Lasix 40 mg IV twice a day. 5. Continue ampicillin and Rocephin per infectious disease recommendations. Right arm midline catheter placed on 02/05/2022 for outpatient antibiotics. 6. GI and DVT prophylaxis. 7. Pain control current medication regimen. 8. Insulin management per primary care service. Preoperative hemoglobin A1c was 7.8%. 9. Patient will have permanent pacemaker placement by Dr. Scruggs once he is off IV antibiotics. Dressing over the externalized pacemaker to be changed by Dr. Scruggs only. 10. Continue Zoloft 50 mg by mouth daily. 11. Discharge planning is in place, anticipate discharge to [facility] inpatient rehab when ready for discharge. 12. Continue to record strict accurate intake and output, may bladder scan and straight cath for greater than 300 mL residual. 13. Daily weights. Shower daily. 14. Limited transthoracic 2-D echocardiogram completed yesterday with results pending. 15. Lasix changed to 40 mg IV twice a day at 9 AM and at 4 PM. Zaroxolyn was also added 2 mg by mouth twice a day to be given 30 minutes prior to the Lasix at 8:30 AM and at 3:30 PM. 15. More recommendations to follow based on patient's clinical course. Time with Patient: Greater than 30
--- NOTE | 2022-02-08 10:34 | CA ---
Transthoracic Echo Report Name: Rakan Pereira Age: 76 Gender: M : 1945 Exam Date: 02/07/2022 14:12 Exam Location: [place] [facility] Ht (in): 60 Wt (lb): 251 Ordering Physician: Laila Holt Attending/Referring Phys: Director Of Admissions Amelia Quinn RDCS Procedure CPT: Indications: Assess AV post op Cardiac Hx: Limited Study: Pt is Post AOV. Technical Quality: Contrast 1: Total Dose (mL): Contrast 2: Total Dose (mL): MEASUREMENTS (Male / Female) Normal Values DOPPLER AV Peak Velocity 432.5 cm/s AV Peak Gradient 74.8 mmHg AV Mean Velocity 270.8 cm/s AV Mean Gradient 35.0 mmHg AV Velocity Time Integral 85.7 cm TR Peak Velocity 301.5 cm/s TR Peak Gradient 36.4 mmHg Right Ventricular Systolic Press 41.4 mmHg FINDINGS Left Ventricle Left ventricular ejection fraction is estimated at 50-55 %. Right Ventricle Normal right ventricular size and function. Mild pulmonary hypertension. Right Atrium Left Atrium Mitral Valve Structurally normal mitral valve. Moderate mitral regurgitation. Aortic Valve Post op AOV: replacement:normally bioprosthetic aortic valve without stenosis 75 peak gradient mmHg,34 mean gradient mmHg, mild aortic regurgitation. Tricuspid Valve Structurally normal tricuspid valve. Moderate tricuspid regurgitation. Pulmonic Valve Pericardium Aorta CONCLUSIONS Left ventricular ejection fraction 50-55% RVSP 41 Normal bioprosthetic aortic valve with normal leaflet excursion however increased gradients may be related to patient prosthesis mismatch. Moderate tricuspid regurgitation No pericardial effusion Previewed by: Dr. Matthew Steve DO (Electronically Signed) Final Date: 08 February 2022 10:33
[2022-02-08 11:27] LABS: Glucose,Whole Blood 197 mg/dL (70-110)
--- NOTE | 2022-02-08 11:29 | P.PN ---
Subjective Progress Note Date: 02/08/22 The patient is a 76-year-old male follows in the office with Dr. Cárdenas. He presented to [facility] on 01/17/2022 with mental status changes and was found to have infective endocarditis. TVP was placed for second-degree heart block. On 01/31/2022 he underwent redo aortic valve replacement with Dr. Lopez. Postoperatively the patient has been pacemaker dependent with third- degree heart block. He underwent externalized pacemaker implantation with Dr. Scruggs on 02/04/2022. Yesterday device interrogation was performed. Patient had underlying rhythm, therefore lower rate was reduced to 50 bpm. The patient has underlying sinus rhythm with first-degree AV block. The patient was interviewed and examined sitting comfortably in the recliner chair. He continues to report being weak and tired. He denies any chest pain or chest pressure. He states he does have shortness of breath when ambulating around the unit. No dizziness when standing. GENERAL: Well-appearing, well-nourished and in no acute distress. NECK: Supple without JVD or thyromegaly. LUNGS: Breath sounds dimished to auscultation bilaterally. Respiration equal and unlabored. Bilateral rhonchi. HEART: Regular rate and rhythm without rubs or gallops. S1 and S2 heard. Systolic murmur. Sternal incision approximated. EXTREMITIES: Normal range of motion, +2 generalized edema. Severe scrotal edema. No clubbing or cyanosis. Peripheral pulses intact and strong. VITALS: Blood pressure 132/58, pulse 75, respiratory rate 23 TELEMETRY: Sinus rhythm with first-degree AV block LABS: WBC 5.5, hemoglobin 7.4, hematocrit 23.1, platelet 213, sodium 139, potassium 4.3, BUN 16, creatinine 1.16, AST 22, ALT 24 IMPRESSION: Infective endocarditis, enterococcus faecalis Redo aortic valve replacement Advanced heart block, status post pacemaker implantation Frequent PVC's History of coronary artery disease History of diabetes mellitus PLAN: Diuretic management per surgical and hot wire glass tube cutter team Pacemaker dressing changes to be completed by Dr. Scruggs only Recommend aggressive pulmonary hygiene Recommend ambulation Further recommendations to be based on clinical course I am dictating on behalf of Dr Grey Scruggs's history/physical and assessment/plan. Objective - Vital Signs Vital signs: Vital Signs Temp 98.3 F 02/08/22 08:00 Pulse 75 02/08/22 09:00 Resp 23 02/08/22 10:00 BP 132/58 02/08/22 10:00 Pulse Ox 95 02/08/22 10:00 FiO2 50 02/08/22 10:00 Intake & Output 02/07/22 02/08/22 02/08/22 18:59 06:59 18:59 Intake Total 600 1270 250 Output Total 2410 850 950 Balance -1810 420 -700 Weight 114 kg 113.2 kg Intake: IV 350 350 50 Ampicillin 2,000 mg In 300 300 Sodium Chloride 0.9% 100 ml @ 200 mls/hr IVPB Q4HR [facility] Rx#:[id number] cefTRIAXone 2 gm In 50 50 50 Sodium Chloride 0.9% 50 ml @ 100 mls/hr IVPB Q12HR [facility] Rx#:[id number] Intake, IV Titration 50 Amount Ampicillin 2,000 mg In 50 Sodium Chloride 0.9% 100 ml @ 200 mls/hr IVPB Q4HR [facility] Rx#:[id number] Oral 250 920 150 Output: Urine 2410 850 950 Other: Voiding Method Bedside Commode Bedside Commode Bedside Commode Urinal Urinal Urinal # Voids 0 # Bowel Movements 1 1 ABP, PAP, CO, CI - Last Documented Arterial Blood Pressure 167/54 Pulmonary Artery Pressure 36/15 Cardiac Output 5.5 Cardiac Index 2.5 - Labs CBC & Chem 7: 02/08/22 06:40 02/08/22 06:40 Labs: Abnormal Lab Results - Last 24 Hours (Table) 02/07/22 02/07/22 02/08/22 Range/Units 16:32 19:53 06:37 RBC (4.30-5.90) m/uL Hgb (13.0-17.5) gm/dL Hct (39.0-53.0) % RDW (11.5-15.5) % Glucose (74-99) mg/dL POC Glucose (mg/dL) 167 H 260 H 128 H (70-110) mg/dL Calcium (8.4-10.2) mg/dL Total Protein (6.3-8.2) g/dL Albumin (3.5-5.0) g/dL 02/08/22 02/08/22 Range/Units 06:40 06:40 RBC 2.32 L (4.30-5.90) m/uL Hgb 7.4 L (13.0-17.5) gm/dL Hct 23.1 L (39.0-53.0) % RDW 16.7 H (11.5-15.5) % Glucose 115 H (74-99) mg/dL POC Glucose (mg/dL) (70-110) mg/dL Calcium 7.8 L (8.4-10.2) mg/dL Total Protein 5.1 L (6.3-8.2) g/dL Albumin 2.8 L (3.5-5.0) g/dL
--- NOTE | 2022-02-08 15:09 | P.PN ---
Subjective Progress Note Date: 02/06/22 Principal diagnosis: Endocarditis Patient is a 76-year old male with Enterococcus faecalis bacteremia secondary to bioprosthetic aortic valve endocarditis developing his rhythm abnormality concern for possible aortic root abscess for the patient was transferred to this facility, patient is status post temporary pacemaker placement by cardiology on 01/25/2022.Patient is status postcardiac cath completed on 01/27/2022 with evidence of moderate disease in mid RCA. Patient is status post excision of the previous 23 mm Inspiris pericardial bioprosthesis and debridement of the annulus, aortic valve replacement using a 21 mm Inspiris pericardial bioprosthesis completed on 01/31/2022, the patient is status post external pacemaker placement as of 02/04/2022 On today's evaluation that is 02/06/2022 the patient remains to be afebrile, the patient is breathing comfortably on room air, patient chest pain is controlled with the current pain medication, the patient denies any nausea no vomiting no abdominal pain, and no diarrhea , , no new symptoms Objective - Vital Signs Vital signs: Vital Signs Temp 98.3 F 02/06/22 08:00 Pulse 80 02/06/22 11:12 Resp 16 02/06/22 11:00 BP 139/69 02/06/22 11:00 Pulse Ox 92 L 02/06/22 11:00 FiO2 50 01/31/22 17:00 Intake & Output 02/05/22 02/06/22 02/06/22 18:59 06:59 18:59 Intake Total 1081 450 770 Output Total 805 425 550 Balance 276 25 220 Weight 114.3 kg Intake: IV 471 450 200 Ampicillin 2,000 mg In 300 300 100 Sodium Chloride 0.9% 100 ml @ 200 mls/hr IVPB Q4HR [facility] Rx#:[id number] PRESSURE BAG (Sodium 21 Chloride 0.9) Sodium Chloride 0.9% 1, 100 100 000 ml @ 20 mls/hr IV . Q24H [facility] Rx#:[id number] cefTRIAXone 2 gm In 50 50 100 Sodium Chloride 0.9% 50 ml @ 100 mls/hr IVPB Q12HR [facility] Rx#:[id number] Oral 610 570 Output: Urine 805 425 550 Other: Voiding Method Urinal Urinal Toilet Bedside Commode Urinal # Voids 1 0 1 # Bowel Movements 1 1 ABP, PAP, CO, CI - Last Documented Arterial Blood Pressure 167/54 Pulmonary Artery Pressure 36/15 Cardiac Output 5.5 Cardiac Index 2.5 - Exam GENERAL DESCRIPTION: Elderly male up in the chair in no distress LUNGS: Unlabored breathing. Decreased breath sound at the base HEART: S1, S2, regular rate and rhythm. ABDOMEN: Soft, no tenderness , guarding or rigidity, no organomegaly EXTREMITIES: No edema of feet. - Labs CBC & Chem 7: 02/08/22 06:40 02/08/22 06:40 Labs: Abnormal Lab Results - Last 24 Hours (Table) 02/05/22 02/05/22 02/06/22 Range/Units 16:27 20:31 03:23 RBC 2.31 L (4.30-5.90) m/uL Hgb 7.0 L (13.0-17.5) gm/dL Hct 22.4 L (39.0-53.0) % RDW 16.6 H (11.5-15.5) % Sodium (137-145) mmol/L Glucose (74-99) mg/dL POC Glucose (mg/dL) 221 H 177 H (70-110) mg/dL Calcium (8.4-10.2) mg/dL Magnesium (1.6-2.3) mg/dL 02/06/22 02/06/22 02/06/22 Range/Units 03:23 07:02 11:24 RBC (4.30-5.90) m/uL Hgb (13.0-17.5) gm/dL Hct (39.0-53.0) % RDW (11.5-15.5) % Sodium 135 L (137-145) mmol/L Glucose 131 H (74-99) mg/dL POC Glucose (mg/dL) 177 H 169 H (70-110) mg/dL Calcium 8.0 L (8.4-10.2) mg/dL Magnesium 2.8 H (1.6-2.3) mg/dL Microbiology - Last 24 Hours (Table) 01/31/22 14:03 Gram Stain - Final Other - Other Tissue Culture - Final Enterococcus faecalis 01/31/22 14:03 Anaerobic Culture - Final Other - Other Assessment and Plan (1) Endocarditis Current Visit: Yes Status: Acute Code(s): I38 - ENDOCARDITIS, VALVE UNSPECIFIED SNOMED Code(s): 96323310 Plan: 1-patient with Enterococcus faecalis bacteremia secondary to bioprosthetic aortic valve endocarditis now with development of complication with bradycardia arrhythmia concerning for aortic root abscess s/p temporary pacemaker placement And the patient is status postcardiac cath completed on 01/27/2022 in preparation for aortic valve surgery 2- patient is status post aortic valve replacement completed on 01/31/2022 culture positive for Enterococcus faecalis sensitive to penicillin, patient is status post external pacemaker placement because of heart block 3-patient has shown clinical improvement and will continue with ampicillin and Rocephin , plan is for 6 weeks of IV antibiotics from his surgery and this was discussed with the surgical team Time with Patient: Less than 30
--- NOTE | 2022-02-08 15:10 | P.PN ---
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 Patient is status post excision of the previous 23 mm Inspiris pericardial bioprosthesis and debridement of the annulus, aortic valve replacement using a 21 mm Inspiris pericardial bioprosthesis completed on 01/31/2022, the patient is status post external pacemaker placement as of 02/04/2022 On today's evaluation that is 02/07/2022 the patient denies any fever or any chills, the patient is breathing comfortably on room air, patient denies any worsening chest pain patient did have occasional dry cough, the patient denies any nausea no vomiting no abdominal pain, and no diarrhea , Objective - Vital Signs Vital signs: Vital Signs Temp 98 F 02/07/22 12:00 Pulse 72 02/07/22 12:00 Resp 20 02/07/22 12:00 BP 156/69 02/07/22 12:00 Pulse Ox 96 02/07/22 12:00 FiO2 50 02/07/22 11:00 Intake & Output 02/06/22 02/07/22 02/07/22 18:59 06:59 18:59 Intake Total 1260 390 150 Output Total 1025 1000 1350 Balance 235 -610 -1200 Weight 114.3 kg 114 kg Intake: IV 440 190 150 Ampicillin 2,000 mg In 300 100 100 Sodium Chloride 0.9% 100 ml @ 200 mls/hr IVPB Q4HR [facility] Rx#:[id number] Sodium Chloride 0.9% 1, 40 40 000 ml @ 20 mls/hr IV . Q24H [facility] Rx#:[id number] cefTRIAXone 2 gm In 100 50 50 Sodium Chloride 0.9% 50 ml @ 100 mls/hr IVPB Q12HR [facility] Rx#:[id number] Oral 820 200 Output: Urine 1025 1000 1350 Other: Voiding Method Bedside Commode Bedside Commode Bedside Commode Urinal Urinal Urinal # Voids 1 0 # Bowel Movements 1 1 ABP, PAP, CO, CI - Last Documented Arterial Blood Pressure 167/54 Pulmonary Artery Pressure 36/15 Cardiac Output 5.5 Cardiac Index 2.5 - Exam GENERAL DESCRIPTION: Elderly male up in the chair in no distress LUNGS: Unlabored breathing. Decreased breath sound at the base HEART: S1, S2, regular rate and rhythm. ABDOMEN: Soft, no tenderness , guarding or rigidity, no organomegaly EXTREMITIES: 2+ edema of feet. - Labs CBC & Chem 7: 02/08/22 06:40 02/08/22 06:40 Labs: Abnormal Lab Results - Last 24 Hours (Table) 02/06/22 02/06/22 02/07/22 Range/Units 16:27 20:29 07:00 RBC 2.40 L (4.30-5.90) m/uL Hgb 7.3 L (13.0-17.5) gm/dL Hct 23.7 L (39.0-53.0) % MCHC 30.7 L (31.0-37.0) g/dL RDW 16.9 H (11.5-15.5) % Lymphocytes # 0.7 L (1.0-4.8) k/uL Carbon Dioxide (22-30) mmol/L Glucose (74-99) mg/dL POC Glucose (mg/dL) 165 H 193 H (70-110) mg/dL Calcium (8.4-10.2) mg/dL Total Protein (6.3-8.2) g/dL Albumin (3.5-5.0) g/dL 02/07/22 02/07/22 02/07/22 Range/Units 07:00 07:04 11:00 RBC (4.30-5.90) m/uL Hgb (13.0-17.5) gm/dL Hct (39.0-53.0) % MCHC (31.0-37.0) g/dL RDW (11.5-15.5) % Lymphocytes # (1.0-4.8) k/uL Carbon Dioxide 21 L (22-30) mmol/L Glucose 156 H (74-99) mg/dL POC Glucose (mg/dL) 176 H 163 H (70-110) mg/dL Calcium 7.8 L (8.4-10.2) mg/dL Total Protein 5.0 L (6.3-8.2) g/dL Albumin 2.8 L (3.5-5.0) g/dL Assessment and Plan (1) Endocarditis Current Visit: Yes Status: Acute Code(s): I38 - ENDOCARDITIS, VALVE U NSPECIFIED SNOMED Code(s): 85831103 Plan: 1-patient with Enterococcus faecalis bacteremia secondary to bioprosthetic aortic valve endocarditis now with development of complication with bradycardia arrhythmia concerning for aortic root abscess s/p temporary pacemaker placement And the patient is status postcardiac cath completed on 01/27/2022 in preparation for aortic valve surgery 2- patient is status post aortic valve replacement completed on 01/31/2022 culture positive for Enterococcus faecalis sensitive to penicillin, patient is status post external pacemaker placement because of heart block 3-patient is slowly clinical improving and will continue with the current treatment of ampicillin and Rocephin , and monitor clinical course closely Time with Patient: Less than 30
--- NOTE | 2022-02-08 15:11 | P.PN ---
Subjective Progress Note Date: 02/08/22 Principal diagnosis: Endocarditis Patient is a 76-year old male with Enterococcus faecalis bacteremia secondary to bioprosthetic aortic valve endocarditis developing his rhythm abnormality concern for possible aortic root abscess for the patient was transferred to this facility, patient is status post temporary pacemaker placement by cardiology on 01/25/2022.Patient is status postcardiac cath completed on 01/27/2022 with evidence of moderate disease in mid RCA. Patient is status post excision of the previous 23 mm Inspiris pericardial bioprosthesis and debridement of the annulus, aortic valve replacement using a 21 mm Inspiris pericardial bioprosthesis completed on 01/31/2022, the patient is status post external pacemaker placement as of 02/04/2022 On today's evaluation that is 02/08/2022 the patient remains to be afebrile, the patient is breathing comfortably on room air, patient chest pain is currently controlled patient did have occasional dry cough, the patient denies any nausea no vomiting no abdominal pain, and no diarrhea , patient is complaining mostly of pain to his gluteal area from sitting and lying Objective - Vital Signs Vital signs: Vital Signs Temp 98.4 F 02/08/22 12:00 Pulse 79 02/08/22 12:02 Resp 13 02/08/22 13:00 BP 139/66 02/08/22 13:00 Pulse Ox 96 02/08/22 13:00 FiO2 50 02/08/22 10:00 Intake & Output 02/07/22 02/08/22 02/08/22 18:59 06:59 18:59 Intake Total 600 1270 300 Output Total 2410 850 1350 Balance -1810 420 -1050 Weight 114 kg 113.2 kg Intake: IV 350 350 50 Ampicillin 2,000 mg In 300 300 Sodium Chloride 0.9% 100 ml @ 200 mls/hr IVPB Q4HR [facility] Rx#:[id number] cefTRIAXone 2 gm In 50 50 50 Sodium Chloride 0.9% 50 ml @ 100 mls/hr IVPB Q12HR [facility] Rx#:[id number] Intake, IV Titration 100 Amount Ampicillin 2,000 mg In 100 Sodium Chloride 0.9% 100 ml @ 200 mls/hr IVPB Q4HR [facility] Rx#:[id number] Oral 250 920 150 Output: Urine 2410 850 1350 Other: Voiding Method Bedside Commode Bedside Commode Bedside Commode Urinal Urinal Urinal # Voids 0 # Bowel Movements 1 1 ABP, PAP, CO, CI - Last Documented Arterial Blood Pressure 167/54 Pulmonary Artery Pressure 36/15 Cardiac Output 5.5 Cardiac Index 2.5 - Exam GENERAL DESCRIPTION: Elderly male up in the chair in no distress LUNGS: Unlabored breathing. Decreased breath sound at the base HEART: S1, S2, regular rate and rhythm. ABDOMEN: Soft, no tenderness , guarding or rigidity, no organomegaly EXTREMITIES: 2+ edema of feet. - Labs CBC & Chem 7: 02/08/22 06:40 02/08/22 06:40 Labs: Abnormal Lab Results - Last 24 Hours (Table) 02/07/22 02/07/22 02/08/22 Range/Units 16:32 19:53 06:37 RBC (4.30-5.90) m/uL Hgb (13.0-17.5) gm/dL Hct (39.0-53.0) % RDW (11.5-15.5) % Glucose (74-99) mg/dL POC Glucose (mg/dL) 167 H 260 H 128 H (70-110) mg/dL Calcium (8.4-10.2) mg/dL Total Protein (6.3-8.2) g/dL Albumin (3.5-5.0) g/dL 02/08/22 02/08/22 02/08/22 Range/Units 06:40 06:40 11:25 RBC 2.32 L (4.30-5.90) m/uL Hgb 7.4 L (13.0-17.5) gm/dL Hct 23.1 L (39.0-53.0) % RDW 16.7 H (11.5-15.5) % Glucose 115 H (74-99) mg/dL POC Glucose (mg/dL) 197 H (70-110) mg/dL Calcium 7.8 L (8.4-10.2) mg/dL Total Protein 5.1 L (6.3-8.2) g/dL Albumin 2.8 L (3.5-5.0) g/dL Assessment and Plan (1) Endocarditis Current Visit: Yes Status: Acute Code(s): I38 - ENDOCARDITIS, VALVE UNSPECIFIED SNOMED Code(s): 37957638 Plan: 1-patient with Enterococcus faecalis bacteremia secondary to bioprosthetic a ortic valve endocarditis now with development of complication with bradycardia arrhythmia concerning for aortic root abscess s/p temporary pacemaker placement And the patient is status postcardiac cath completed on 01/27/2022 in preparation for aortic valve surgery 2- patient is status post aortic valve replacement completed on 01/31/2022 culture positive for Enterococcus faecalis sensitive to penicillin, patient is status post external pacemaker placement because of heart block 3-patient had shown clinical improvement has cleared his bacteremia and will continue with the current treatment of ampicillin and Rocephin , frequent change of position and skin protective cream to the sacral and bilateral gluteal area to prevent formation of a pressure ulcer this was discuss with the RN Time with Patient: Less than 30
[2022-02-08] MEDS ORDERED: FUROSEMIDE 10 MG/ML 4 ML VIAL IV SCH (16:00)
[2022-02-08] MEDS: metOLazone 2.5 MG TAB PO SCH (16:32)
[2022-02-08 16:58] LABS: Glucose,Whole Blood 186 mg/dL (70-110)
[2022-02-08 21:09] LABS: Glucose,Whole Blood 194 mg/dL (70-110)
[2022-02-08] MEDS: INSULIN DETEMIR (LEVEMIR) 100 UNIT/ML SYR SQ SCH (21:38)
[2022-02-08] MEDS: SENNOSIDES-DOCUSATE SODIUM 1 EACH TAB PO SCH (21:38)
[2022-02-08] MEDS: BENZOCAINE/MENTHOL LOZENG 1 EACH LOZENGE MUCOUS MEM PRN (22:39)
[2022-02-08] MEDS: ACETAMINOPHEN TAB 500 MG TAB PO PRN (22:39)
[2022-02-09] MEDS: AMPICILLIN 2,000 MG in SODIUM CHLORIDE 0.9% 100 ML IVPB SCH ×7 (00:15→23:52)
[2022-02-09] MEDS: HEPARIN SODIUM,PORCINE/PF 5,000 UNIT/0.5 ML SYRINGE SQ SCH ×4 (00:16→23:52)
[2022-02-09 06:24] LABS: Glucose,Whole Blood 123 mg/dL (70-110)
[2022-02-09] MEDS: INSULIN ASPART (NovoLOG) 100 UNIT/ML VIAL SQ SCH ×7 (06:43→20:41)
[2022-02-09] MEDS: PANTOPRAZOLE 40 MG TABLET PO SCH (06:45)
[2022-02-09] MEDS: ASCORBIC ACID 500 MG TAB PO SCH ×2 (06:45→16:48)
[2022-02-09] MEDS: FERROUS SULFATE 325 MG TAB PO SCH ×2 (06:46→16:48)
--- NOTE | 2022-02-09 07:08 | XR ---
EXAMINATION TYPE: XR chest 1V portable DATE OF EXAM: 02/09/2022 COMPARISON: Chest x-ray 02/08/2022 HISTORY: Status post aortic valve replacement redo TECHNIQUE: Single frontal view of the chest is obtained. FINDINGS: Findings are similar to prior exam. Patchy basilar density appears more conspicuous on the right, there are differences in rotation. Postop changes are stable. There is no evident pneumothora x. Lung volumes are low. Cardiac mediastinal silhouette is unchanged. Interstitium is prominent. IMPRESSION: Expiratory exam, difficult to exclude interstitial edema, basilar atelectasis versus pne umonia
[2022-02-09 08:17] LABS: Anisocytosis Slight; HCT 23.7 % (39.0-53.0); HGB 7.6 gm/dL (13.0-17.5); Hypochromasia Marked; MCH 31.7 pg (25.0-35.0); MCHC 32.1 g/dL (31.0-37.0); MCV 98.7 fL (80.0-100.0); Macrocytosis Slight; Mean Platelet Volume 8.5; Platelet Count 217 k/uL (150-450); Poikilocytosis Moderate; RDW 16.7 % (11.5-15.5); WBC 5.4 k/uL (3.8-10.6)
--- NOTE | 2022-02-09 08:17 | P.PN ---
Subjective Progress Note Date: 02/09/22 02/04/2022, I'm seeing the patient for a follow-up. The patient is postoperative placement and the patient was found also to have an infective endocarditis. The patient is postop day #3 following a noted murmur placement. He had infective endocarditis in the preop blood cultures were negative. The tissue culture from the valve sternotomy positive for enterococcus and the patient is currently on IV Unasyn. The chest x-ray from today shows hepatomegaly and some microvessel congestion. Chest tubes at all removed. No fever. No chills. Is using the incentive spirometer and is pulling approximately 1000. The patient has an underlying cardiac rhythm that is third-degree AV block and the patient will need a pacemaker insertion. Urine output is adequate for now. The patient's has a white cell count of 6.8 with a hemoglobin of 7.8 and the sugar of 114. Platelet count is on 140. Magnesium is 2.6 with a ionized calcium of 4.9. Awake. Alert. His current [place] oxygen. Communicating. He has a right IJ Cordis and he still has an arterial line in his right upper extremity. 02/05/2022, the patient is postop day #5. Doing well. No specific complaints. Room air oxygen with a pulse ox of 99%. Chest x-ray from today is showing cardiomegaly, atelectatic changes in the lung base bilaterally, Ana vessel congestion and small amount of effusion or son the left. The patient has a PICC line in his right upper extremity. The sternotomy wires are also seen. As far as his cardiac rhythm, he continues to be paced. The plan is to ultimately inserted today pacemaker for high degree AV block. He continues to use incentive spirometer. He is afebrile. He has enterococcus on his valve and the patient is currently on IV ampicillin 2 g every 4 hours/Rocephin. The white cell count of 4.9 with a hemoglobin of 7.8 and a platelet count of 153. Sodium is 136 with a BUN of 18 and a creatinine of 1.06. 02/06/2022, the patient is postop day #6. He continues to have a high degree AV block. The patient has a temporary pacemaker in place. He is currently being paced most of the time. Epicardial wires were pulled out. Surgical was obstructing and intact. Remains on a combination of IV Rocephin and ampicillin. His blood work from today shows a hemoglobin of 7 otherwise, 5. Electrolytes are normal. He is using the incentive spirometer. His pulling approximately 1000. Review of the chest x-ray from today and shows some mild interstitial prominence. Otherwise no other acute abnormalities. No pneumothorax. The patient is receiving 40 mg of Lasix IV twice a day. 02/07/2022, the patient is postop day #7. He has been on the same antibiotic coverage includes IV Rocephin and ampicillin. Nofever for now. no diarrhea. No side effects from antibiotic treatment. He continues to be diuresed with Lasix and the patient has been in a slight negative fluid balance. Continues to have edema lower approximately bilaterally. Blood work from today shows a white cell count of 5.47.3 sodium is 137 bicarb was 23 BUN is 16 creatinine 0.9 albumin is 2.5.8. Chest x-ray from today was noted and there is no major interval change. The patient continues to receive Lasix 40 mg IV every 12 hours. He was admitted spirometer. No chest pain. Surgical incisions are clean and intact. He has a percutaneous pacemaker in place. The ultimate goal is to insert a permanent pacemaker once he completes a 4-6 week course of antibiotics. He is awake and alert. No focal neurological deficit. No nausea or vomiting. No diarrhea. Functionality still limited. Pulse ox is 97% on 2 L of oxygen nasal cannula. Epicardial leads were removed. 02/08/2022 , the patient is postop day number 8. he remains on a combination of IV Rocephin and ampicillin. doing well. Afebrile. hemodynamically stable. Cardiac rhythm is still paced. labs from today shows a white cell count of 5.5 w ith a hemoglobin of 7.4. BUN is at 60 with a creatinine of 1.1 penicillin level is at 139. He continues to be on IV Lasix 40 mg every 12 hours. his in a negative fluid balance of 1.3 L. Chest x-ray from today shows cardamom regularly. Atelectatic changes in lung bases bilaterally. interstitial edema has improved significantly. He is awake and alert. his oxygen on room air plan he is pulse oxing about 90%. He continues to use incentive spirometer. 2021, patient is postop day #9. Patient is doing very well. He has diuresed adequately over the past 24 hours and his negative bolus in order of 2.7 L at least. He remains on Lasix 40 mg IV every 24 hours and the patient is also on Zaroxolyn at a dose of 2.5 mg twice a day. His chest x-ray is showing exhalation views and smaller lung volumes. There is some atelectasis and some interstitial infiltrates. He does have cardiomegaly. Echocardiogram was done and it showed normal function of the prosthetic aortic valve. No significant regurgitation. The pulmonary artery pressure was mildly elevated. There was moderate degree of tricuspid regurgitation. Otherwise no other significant abnormalities were noted. The patient remains hemodynamically stable. Labs today are still pending. He has lost weight along with diuresis. He is on room air oxygen. He continues to use the same antibiotic coverage and he continues to be on incentive spirometer. No other significant events overnight. Objective - Vital Signs Vital signs: Vital Signs Temp 98.1 F 02/09/22 04:04 Pulse 86 02/09/22 07:00 Resp 31 H 02/09/22 07:00 BP 126/69 02/09/22 07:00 Pulse Ox 95 02/09/22 07:00 FiO2 50 02/08/22 10:00 Intake & Output 02/08/22 02/09/22 02/09/22 18:59 06:59 18:59 Intake Total 300 510 260 Output Total 2350 1250 Balance -2049 260 Weight 113.2 kg 110.6 kg Intake: IV 50 410 10 Ampicillin 2,000 mg In 300 Sodium Chloride 0.9% 100 ml @ 200 mls/hr IVPB Q4HR [facility] Rx#:[id number] Sodium Chloride 0.9% 1, 60 10 000 ml @ 20 mls/hr IV . Q24H [facility] Rx#:[id number] cefTRIAXone 2 gm In 50 50 Sodium Chloride 0.9% 50 ml @ 100 mls/hr IVPB Q12HR [facility] Rx#:[id number] Intake, IV Titration 100 100 Amount Ampicillin 2,000 mg In 100 100 Sodium Chloride 0.9% 100 ml @ 200 mls/hr IVPB Q4HR [facility] Rx#:[id number] Oral 150 250 Output: Urine 2350 1250 Other: Voiding Method Bedside Commode Bedside Commode Urinal Urinal # Bowel Movements 1 1 ABP, PAP, CO, CI - Last Documented Arterial Blood Pressure 167/54 Pulmonary Artery Pressure 36/15 Cardiac Output 5.5 Cardiac Index 2.5 - Exam No acute distress, oriented 3. Currently on RA 02 HEENT examination is grossly unremarkable. Neck supple. Full range of motion. No adenopathy thyromegaly or neck vein distention. Cardiovascular examination reveals regular rhythm rate. S1-S2 normal. No S3 or S4. Heart rate 87 bpm. Lungs reveal clear breath sounds. Breath sounds are equal bilaterally. No adventitious lung sounds including wheezes rhonchi or crackles. Saturations on 2 L are 96 %. Abdomen soft bowel sounds are heard. No masses or tenderness. Extremities are intact. No cyanosis clubbing or edema. Skin is without rash or lesion. Neurologic examination is brief but nonfocal. - Labs CBC & Chem 7: 02/08/22 06:40 02/08/22 06:40 Labs: Abnormal Lab Results - Last 24 Hours (Table) 02/08/22 02/08/22 02/08/22 Range/Units 11:25 16:57 21:07 POC Glucose (mg/dL) 197 H 186 H 194 H (70-110) mg/dL 02/09/22 Range/Units 06:22 POC Glucose (mg/dL) 123 H (70-110) mg/dL Assessment and Plan Plan: Postoperative day #9, status post redo sternotomy, extraction of previous prosthetic aortic valve, and replacement with a 21 mm pericardial bioprosthesis aortic valve. clinically stable. The patient is on room air oxygen. Surgical incisions are clean and intact. Postthoracotomy. The patient is currently on room air oxygen. Surgical site is likely an intact. on IV Lasix 40 mg every 24 hours And Zaroxolyn the patient is diuresing adequately for now acute prosthetic aortic valve endocarditis, secondary to Enterococcus faecalis. The patient remains on IV ampicillin/rocephin Prior history of aortic valve replacement, 4 years ago for aortic stenosis. High-grade AV block, secondary to endocarditis. Acute encephalopathy, secondary to endocarditis and sepsis. History of COPD, stable. Essential hypertension. Type 2 diabetes mellitus. BPH. Seasonal ALLERGIC rhinitis. Plan: Echo was noted to have a combination of Lasix and Zaroxolyn Awaiting labs from today Monitor the fluid balance Chest x-ray from today was noted The patient is currently RA oxygen The patient is using the incentive spirometer Epicardial leads removed Hemodynamically stable Cardiac rhythm is fairly high degree AV block and the patient will need a pacemaker insertion and this will be discussed with cardiology. The blood cultures are negative and the patient should be able to have a pacemaker inserted in 4-6 weeks Chest x-ray is essentially showing postsurgical changes. There is some mild pulmonary vascular congestion is improving Continue Levemir insulin 26 units for blood sugar control in addition to NovoLog 5 units with meals Hydrocodone for pain control No beta blockers for now Increase mobility will continue to follow.
[2022-02-09] MEDS: IPRATROPIUM-ALBUTEROL 3 ML NEB INHALATION SCH ×4 (08:25→21:12)
[2022-02-09] MEDS: ACETYLCYSTEINE 800 MG/4 ML VIAL INHALATION SCH ×4 (08:25→21:12)
[2022-02-09] MEDS: SYMBICORT 160-4.5 MCG INHALER INHALATION SCH ×2 (08:25→21:13)
[2022-02-09 09:04] LABS: Magnesium 2.1 mg/dL (1.6-2.3); Potassium 4.1 mmol/L (3.5-5.1); Total Bilirubin 0.6 mg/dL (0.2-1.3); Total Protein 5.3 g/dL (6.3-8.2)
--- NOTE | 2022-02-09 09:20 | P.PN ---
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 History of severe aortic valve stenosis status post aortic valve replacement with a 23 mm Inspiris bioprosthetic aortic valve in November 2017, CAD with mid RCA stenosis 50% and previous PCI in 2018, hypertension, hyperlipidemia, insulin-dependent diabetes mellitus type 2, obesity, obstructive sleep apnea without CPAP use, moderate COPD, asthma, previous tobacco dependence, benign prostatic hypertrophy, UTIs with pseudomonas in 01/2020, gout, bilateral internal carotid stenosis 50-70%. POD #9 redo sternotomy, excision of the previous 23 mm Inspiris pericardial bioprosthesis and debridement of the annulus, aortic valve replacement using a 21 mm Inspiris pericardial bioprosthesis Postoperative acute blood loss anemia, expected given hemodilution and cardiopulmonary bypass pump POD #5 externalized pacemaker implant via right axillary vein by Dr. Scruggs The patient was seen and examined in follow-up today 02/09/2022 at his bedside in the intensive care unit. He reports that he feels much improved today from yesterday, and feels that he is making some improvements daily. Denies any complaints of pain or shortness of breath at this time although is complaining of some discomfort to his "rear end". Currently he is sitting up to the bedside chair, is awake, alert, oriented 3 and is in no acute apparent distress. He remains hemodynamically stable and is currently on no inotropic pressor support. Oxygen saturations are 97% on room air and he is achieving 1500 mL on his incentive spirometry up encouragement. Bedside telemetry is showing normal sinus rhythm with first-degree heart block and occasional PVCs heart rate 79 BPM. He is on Lasix 40 mg IV twice a day and Zaroxolyn 2.5 mg by mouth twice a day for diuresis and had a negative fluid balance of around 2.7 L in the last 24 hours. His weight today is 110.6 kg and yesterday it was 113 kg. He continues to have +2 edema to his bilateral lower extremities as well as some scrotal edema. He has been up ambulating in the intensive care unit hallway with standby assistance from nursing and therapy staff. He is tolerating an oral diet and ate around three quarters of his breakfast this morning. Laboratory results this morning show a WBC count of 5.4, hemoglobin 7.6, hematocrit 23.7, platelets 217, sodium 138, potassium 4.1, BUN 13, creatinine 1.01, magnesium 2.1 and calcium 8.0.. He remains on ampicillin and Rocephin for antibiotic coverage for a history of bacteremia with enterococcus faecalis, his antibiotics have been managed by infectious disease. He has been afebrile the last 24 hours. A transthoracic 2-D echocardiogram was completed on 02/07/2022 which showed a left ventricular ejection fraction of 50-55% and a normal bioprosthetic valve with no rmal leaflet excursion without stenosis, moderate mitral valve regurgitation and moderate tricuspid valve regurgitation. Objective - Vital Signs Vital signs: Vital Signs Temp 98.1 F 02/09/22 04:04 Pulse 78 02/09/22 08:42 Resp 31 H 02/09/22 07:00 BP 126/69 02/09/22 07:00 Pulse Ox 95 02/09/22 07:00 FiO2 50 02/08/22 10:00 Intake & Output 02/08/22 02/09/22 02/09/22 18:59 06:59 18:59 Intake Total 300 510 260 Output Total 2350 1250 Balance -2049 - 260 Weight 113.2 kg 110.6 kg Intake: IV 50 410 10 Ampicillin 2,000 mg In 300 Sodium Chloride 0.9% 100 ml @ 200 mls/hr IVPB Q4HR [facility] Rx#:[id number] Sodium Chloride 0.9% 1, 60 10 000 ml @ 20 mls/hr IV . Q24H [facility] Rx#:[id number] cefTRIAXone 2 gm In 50 50 Sodium Chloride 0.9% 50 ml @ 100 mls/hr IVPB Q12HR [facility] Rx#:[id number] Intake, IV Titration 100 100 Amount Ampicillin 2,000 mg In 100 100 Sodium Chloride 0.9% 100 ml @ 200 mls/hr IVPB Q4HR [facility] Rx#:[id number] Oral 150 250 Output: Urine 2350 1250 Other: Voiding Method Bedside Commode Bedside Commode Urinal Urinal # Bowel Movements 1 1 ABP, PAP, CO, CI - Last Documented Arterial Blood Pressure 167/54 Pulmonary Artery Pressure 36/15 Cardiac Output 5.5 Cardiac Index 2.5 - Exam CONSTITUTIONAL: Sitting to the bedside chair in the intensive care unit eating his breakfast, appears comfortable, cooperative, no apparent acute distress. HEENT: Neck is supple, no JVD, no lymphadenopathy. RESPIRATORY: Lungs sounds essentially clear throughout, diminished to his bilateral bases, few scattered crackles to his bilateral bases. Respirations are symmetrical and nonlabored. Currently on room air with oxygen saturations 97%. Able to achieve 1500 mL on his incentive spirometry. Strong cough. CARDIOVASCULAR: Regular rhythm and rate. S1 and S2 present, negative for S3, or gallop. Soft systolic murmur heard best to his left sternal border. Palpable peripheral pulses bilaterally, 2+ edema to his bilateral lower extremities with some scrotal edema present. No calf pain or tenderness noted. Sequential compression devices and thigh-high KAMRAN hose in place to his bilateral lower extremities. Telemetry showing normal sinus rhythm with first-degree heart block, occasional paced beats and occasional PVCs with heart rate in the 79 BPM. Temporary pacemaker remains on VVI backup at 40 BPM. GASTROINTESTINAL: Abdomen soft, nontender, nondistended. Active bowel sounds present 4 quadrants. Tolerating diet. Passing flatus. No guarding or r igidity. Bowel movement yesterday 02/08/2022. GENITOURINARY: Continues to void. 650 mL of urine output in the last 8 hours. INTEGUMENTARY: Skin is warm and dry with no evidence of clubbing or cyanosis. Midline sternal incision is clean, dry and approximated. No redness or drainage present. Right upper anterior chest temporary pacemaker insertion site dressing clean, dry and intact. MUSKULOSKELETAL: Able to move all extremities, strength equal bilaterally, generalized weakness. PSYCHIATRIC: Alert and oriented to person place and time, appropriate affect, intact judgment and insight. INVASIVE LINES AND TUBES: External pacemaker present to right upper anterior chest, dressing dry and intact. Right arm midline IV in place and functioning. - Allied health notes Allied health notes reviewed: nursing - Labs CBC & Chem 7: 02/09/22 06:42 02/09/22 06:42 Labs: Abnormal Lab Results - Last 24 Hours (Table) 02/08/22 02/08/22 02/08/22 Range/Units 11:25 16:57 21:07 RBC (4.30-5.90) m/uL Hgb (13.0-17.5) gm/dL Hct (39.0-53.0) % RDW (11.5-15.5) % POC Glucose (mg/dL) 197 H 186 H 194 H (70-110) mg/dL 02/09/22 02/09/22 Range/Units 06:22 06:42 RBC 2.40 L (4.30-5.90) m/uL Hgb 7.6 L (13.0-17.5) gm/dL Hct 23.7 L (39.0-53.0) % RDW 16.7 H (11.5-15.5) % POC Glucose (mg/dL) 123 H (70-110) mg/dL - Imaging and Cardiology Chest x-ray: report reviewed, image reviewed Assessment and Plan Assessment: 1. 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 Bacteremia with enterococcus faecalis, blood cultures currently negative to date. Final culture on the excised aortic valve showed enterococcus faecalis 3. Moderate mitral valve regurgitation 4. Altered mental status present on admission, resolved 5. History of severe aortic valve stenosis status post aortic valve replacement with a 23 mm Inspiris bioprosthetic aortic valve in November 2017 6. CAD with mid RCA stenosis 50% and previous PCI in 2018 7. Hypertension 8. Hyperlipidemia, treated, cholesterol 86, LDL 39 9. Insulin-dependent diabetes mellitus type 2, preoperative hemoglobin A1c 7.8% 10. Obesity 11. Obstructive sleep apnea without CPAP use 12. Moderate COPD, FEV1 59% of predicted 13. Asthma 14. Previous tobacco dependence 15. Benign prostatic hypertrophy, currently on Flomax, Cardura, Proscar 16. UTIs with pseudomonas in 01/2020 17. Gout 18. Bilateral internal carotid stenosis 50-70% 19. Postoperative acute blood loss anemia, expected given hemodilution and cardiopulmonary bypass pump 20. Medical debility, will need inpatient rehab on discharge Plan: 1. Continue to maximize medical therapy with aspirin, statin, Plavix, and Cozaar. Continue to hold beta erasto at this time due to his AV block, temporary pacemaker in place. 2. Encourage use of his incentive spirometry 10 times every hour while awake. Bronchodilators per pulmonology 3. Increase activity, ambulate as tolerated. PT/OT/cardiac rehab following. Patient needs lots of encouragement. Patient may not lift his right arm above the level of his heart due to pacemaker 4. Will monitor daily labs and chest x-rays. Electrolyte replacement per protocol. Continue Lasix 40 mg IV daily and Zaroxolyn 2.5 mg by mouth twice a day. 5. Continue ampicillin and Rocephin per infectious disease recommendations. Right arm midline catheter placed on 02/05/2022 for outpatient antibiotics. 6. GI and DVT prophylaxis. 7. Pain control current medication regimen. 8. Insulin management per primary care service. Preoperative hemoglobin A1c was 7.8%. 9. Patient will have permanent pacemaker placement by Dr. Scruggs once he is off IV antibiotics. Dressing over the externalized pacemaker to be changed by Dr. Scruggs only. 10. Continue Zoloft 50 mg by mouth daily. 11. Discharge planning is in place, anticipate discharge to [facility] inpatient rehab when ready for discharge, in the next 48 hours. 12. Continue to record strict accurate intake and output, may bladder scan and straight cath for greater than 300 mL residual. 13. Daily weights. Shower daily. 14. More recommendations to follow based on patient's clinical course. Time with Patient: Greater than 30
[2022-02-09] MEDS: allopurinoL 100 MG TAB PO SCH (09:29)
[2022-02-09] MEDS: LOSARTAN 50 MG TAB PO SCH (09:29)
[2022-02-09] MEDS: metOLazone 2.5 MG TAB PO SCH ×2 (09:30→16:29)
[2022-02-09] MEDS: ASPIRIN 325 MG TAB PO SCH (09:30)
[2022-02-09] MEDS: ATORVASTATIN 40 MG TAB PO SCH (09:30)
[2022-02-09] MEDS: TAMSULOSIN 0.4 MG CAP.ER.24H PO SCH (09:30)
[2022-02-09] MEDS: MONTELUKAST 10 MG TAB PO SCH (09:30)
[2022-02-09] MEDS: FINASTERIDE 5 MG TAB PO SCH (09:31)
[2022-02-09] MEDS: guaiFENesin 600 MG TABLET.ER PO SCH ×2 (09:36→20:41)
[2022-02-09] MEDS: DOXAZOSIN 4 MG TAB PO SCH ×2 (09:37→20:41)
[2022-02-09] MEDS: SERTRALINE 50 MG TAB PO SCH (09:37)
[2022-02-09] MEDS: CLOTRIMAZOLE 1% CREAM 30 GM TUBE TOPICAL SCH ×2 (09:46→20:40)
[2022-02-09] MEDS: FUROSEMIDE 10 MG/ML 4 ML VIAL IV SCH (10:45)
[2022-02-09] MEDS ORDERED: POTASSIUM CHLORIDE ER 20 MEQ TAB.ER PO STA (11:00)
[2022-02-09 11:29] LABS: Glucose,Whole Blood 161 mg/dL (70-110)
[2022-02-09 16:39] LABS: Glucose,Whole Blood 189 mg/dL (70-110)
[2022-02-09 20:15] LABS: Glucose,Whole Blood 165 mg/dL (70-110)
[2022-02-09] MEDS: SENNOSIDES-DOCUSATE SODIUM 1 EACH TAB PO SCH (20:40)
[2022-02-09] MEDS: INSULIN DETEMIR (LEVEMIR) 100 UNIT/ML SYR SQ SCH (20:41)
--- NOTE | 2022-02-09 21:24 | P.PN ---
Subjective Progress Note Date: 02/09/22 Principal diagnosis: Endocarditis Patient is a 76-year old male with Enterococcus faecalis bacteremia secondary to bioprosthetic aortic valve endocarditis developing his rhythm abnormality concern for possible aortic root abscess for the patient was transferred to this facility, patient is status post temporary pacemaker placement by cardiology on 01/25/2022.Patient is status postcardiac cath completed on 01/27/2022 with evidence of moderate disease in mid RCA. Patient is status post excision of the previous 23 mm Inspiris pericardial bioprosthesis and debridement of the annulus, aortic valve replacement using a 21 mm Inspiris pericardial bioprosthesis completed on 01/31/2022, the patient is status post external pacemaker placement as of 02/04/2022 On today's evaluation that is 02/09/2022 the patient is afebrile, the patient is breathing comfortably on room air, patient denies chest pain , patient did have occasional dry cough, the patient denies any nausea no vomiting no abdominal pain, and no diarrhea Objective - Vital Signs Vital signs: Vital Signs Temp 98.5 F 02/09/22 09:01 Pulse 63 02/09/22 15:00 Resp 15 02/09/22 15:00 BP 126/69 02/09/22 15:00 Pulse Ox 94 L 02/09/22 15:00 FiO2 50 02/08/22 10:00 Intake & Output 02/08/22 02/09/22 02/09/22 18:59 06:59 18:59 Intake Total 300 510 520 Output Total 2350 1250 1475 Balance -2049 -740 -955 Weight 113.2 kg 110.6 kg Intake: IV 50 410 270 Ampicillin 2,000 mg In 300 200 Sodium Chloride 0.9% 100 ml @ 200 mls/hr IVPB Q4HR [facility] Rx#:[id number] Sodium Chloride 0.9% 1, 60 20 000 ml @ 20 mls/hr IV . Q24H [facility] Rx#:[id number] cefTRIAXone 2 gm In 50 50 50 Sodium Chloride 0.9% 50 ml @ 100 mls/hr IVPB Q12HR [facility] Rx#:[id number] Intake, IV Titration 100 100 Amount Ampicillin 2,000 mg In 100 100 Sodium Chloride 0.9% 100 ml @ 200 mls/hr IVPB Q4HR [facility] Rx#:[id number] Oral 150 250 Output: Urine 2350 1250 1475 Other: Voiding Method Bedside Commode Bedside Commode Urinal Urinal # Voids 1 # Bowel Movements 1 1 1 ABP, PAP, CO, CI - Last Documented Arterial Blood Pressure 167/54 Pulmonary Artery Pressure 36/15 Cardiac Output 5.5 Cardiac Index 2.5 - Exam GENERAL DESCRIPTION: Elderly male up in the chair in no distress LUNGS: Unlabored breathing. Decreased breath sound at the base HEART: S1, S2, regular rate and rhythm. ABDOMEN: Soft, no tenderness , guarding or rigidity, no organomegaly EXTREMITIES: 2+ edema of feet. - Labs CBC & Chem 7: 02/09/22 06:42 02/09/22 06:42 Labs: Abnormal Lab Results - Last 24 Hours (Table) 02/08/22 02/08/22 02/09/22 Range/Units 16:57 21:07 06:22 RBC (4.30-5.90) m/uL Hgb (13.0-17.5) gm/dL Hct (39.0-53.0) % RDW (11.5-15.5) % POC Glucose (mg/dL) 186 H 194 H 123 H (70-110) mg/dL Calcium (8.4-10.2) mg/dL Total Protein (6.3-8.2) g/dL Albumin (3.5-5.0) g/dL 02/09/22 02/09/22 02/09/22 Range/Units 06:42 06:42 11:28 RBC 2.40 L (4.30-5.90) m/uL Hgb 7.6 L (13.0-17.5) gm/dL Hct 23.7 L (39.0-53.0) % RDW 16.7 H (11.5-15.5) % POC Glucose (mg/dL) 161 H (70-110) mg/dL Calcium 8.0 L (8.4-10.2) mg/dL Total Protein 5.3 L (6.3-8.2) g/dL Albumin 3.0 L (3.5-5.0) g/dL Assessment and Plan (1) Endocarditis Current Visit: Yes Status: Acute Code(s): I38 - ENDOCARDITIS, VALVE UNSPECIFIED SNOMED Code(s): 77490726 Plan: 1-patient with Enterococcus faecalis bacteremia secondary to bioprosthetic aortic valve endocarditis now with development of complication with bradycardia arrhythmia concerning for aortic root abscess s/p temporary pacemaker placement And the patient is status postcardiac cath completed on 01/27/2022 in preparation for aortic valve surgery 2- patient is status post aortic valve replacement completed on 01/31/2022 culture positive for Enterococcus faecalis sensitive to penicillin, patient is status post external pacemaker placement because of heart block 3-patient had shown clinical improvement and has cleared his bacteremia , the pt will continue with the current treatment of ampicillin and Rocephin Time with Patient: Less than 30
[2022-02-09] MEDS: ACETAMINOPHEN TAB 500 MG TAB PO PRN (22:19)
[2022-02-09] MEDS: BENZOCAINE/MENTHOL LOZENG 1 EACH LOZENGE MUCOUS MEM PRN (22:20)
[2022-02-10] MEDS: BENZOCAINE/MENTHOL LOZENG 1 EACH LOZENGE MUCOUS MEM PRN ×2 (02:50→18:16)
[2022-02-10] MEDS: AMPICILLIN 2,000 MG in SODIUM CHLORIDE 0.9% 100 ML IVPB SCH ×6 (04:07→23:54)
[2022-02-10 05:10] LABS: Anisocytosis Slight; HCT 22.5 % (39.0-53.0); HGB 7.3 gm/dL (13.0-17.5); Hypochromasia Marked; MCH 31.8 pg (25.0-35.0); MCHC 32.3 g/dL (31.0-37.0); MCV 98.5 fL (80.0-100.0); Macrocytosis Slight; Mean Platelet Volume 8.1; Platelet Count 215 k/uL (150-450); Poikilocytosis Moderate; RBC 2.29 m/uL (4.30-5.90); WBC 4.9 k/uL (3.8-10.6)
[2022-02-10 05:21] LABS: Calcium 7.8 mg/dL (8.4-10.2); Potassium 4.2 mmol/L (3.5-5.1)
[2022-02-10 06:26] LABS: Glucose,Whole Blood 132 mg/dL (70-110)
[2022-02-10] MEDS: INSULIN ASPART (NovoLOG) 100 UNIT/ML VIAL SQ SCH ×7 (06:33→20:47)
[2022-02-10] MEDS: PANTOPRAZOLE 40 MG TABLET PO SCH (06:40)
[2022-02-10] MEDS: FERROUS SULFATE 325 MG TAB PO SCH ×2 (06:40→16:42)
[2022-02-10] MEDS: ASCORBIC ACID 500 MG TAB PO SCH ×2 (06:40→16:42)
--- NOTE | 2022-02-10 07:06 | XR ---
EXAMINATION TYPE: XR chest 1V portable DATE OF EXAM: 02/10/2022 COMPARISON: Chest x-ray 02/09/2022 HISTORY: Postop redo aortic valve replacement TECHNIQUE: Single frontal view of the chest is obtained. FINDINGS: There is improved lung volume, aeration at the right lung base. Pacemaker, post median jose a rnotomy changes with aortic valve replacement and left atrial appendage clip placement again noted. N o evident pneumothorax. Suspect some improvement in aeration at the left lung base, some interval imp roved visualization of a portion of the left hemidiaphragm. Cardiac mediastinal silhouette is stable. IMPRESSION: Improvement in aeration.
[2022-02-10] MEDS ORDERED: POTASSIUM CHLORIDE ER 20 MEQ TAB.ER PO STA (08:28)
--- NOTE | 2022-02-10 08:34 | P.PN ---
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 History of severe aortic valve stenosis status post aortic valve replacement with a 23 mm Inspiris bioprosthetic aortic valve in November 2017, CAD with mid RCA stenosis 50% and previous PCI in 2018, hypertension, hyperlipidemia, insulin-dependent diabetes mellitus type 2, obesity, obstructive sleep apnea without CPAP use, moderate COPD, asthma, previous tobacco dependence, benign prostatic hypertrophy, UTIs with pseudomonas in 01/2020, gout, bilateral internal carotid stenosis 50-70%. POD #10 redo sternotomy, excision of the previous 23 mm Inspiris pericardial bioprosthesis and debridement of the annulus, aortic valve replacement using a 21 mm Inspiris pericardial bioprosthesis Postoperative acute blood loss anemia, expected given hemodilution and cardiopulmonary bypass pump POD #6 externalized pacemaker implant via right axillary vein by Dr. Scruggs The patient was seen and examined in follow-up today 02/10/2022 at his bedside in the intensive care unit. The patient reports that he feels pretty good today, denies any complaints of pain or shortness of breath, although is continuing to complain of some discomfort to his "rear end" and to his scrotum due to some scrotal edema. He remains hemodynamically stable and is currently on no inotropic pressor support. Oxygen saturations are 96% on room air and he is achieving 1500 mL on his incentive spirometry. Right anterior chest temporary pacemaker remains in place and connected to the bedside backup pacemaker generator on a VVI of 50. Bedside telemetry currently showing normal sinus rhythm with first-degree heart block and occasional PVCs with a heart rate of 79 BPM. He reports he ambulated in the intensive care unit already 4-5 times yesterday with minimal assistance from nursing and therapy staff. He remains on Lasix 40 mg IV daily and Zaroxolyn 2.5 mg by mouth twice a day for diuresis, he had a negative fluid balance of 1.7 L in the last 24 hours. Urine output in the last 8 hours was 925 mL. He continues to have some +2 pitting edema to his bilateral lower extremities. Laboratory results this morning show a WBC count of 4.9, hemoglobin 7.3, hematocrit 22.5, platelets 215, sodium 136, potassium 4.2, BUN 12, creatinine 0.97 and calcium 7.8. Objective - Vital Signs Vital signs: Vital Signs Temp 98.5 F 02/10/22 04:00 Pulse 77 02/10/22 07:00 Resp 12 02/10/22 07:00 BP 152/73 02/10/22 06:00 Pulse Ox 95 02/10/22 07:00 FiO2 50 02/08/22 10:00 Intake & Output 02/09/22 02/10/22 02/10/22 18:59 06:59 18:59 Intake Total 520 600 10 Output Total 1700 1125 Balance -1180 -525 10 Intake: IV 270 400 10 Ampicillin 2,000 mg In 200 300 Sodium Chloride 0.9% 100 ml @ 200 mls/hr IVPB Q4HR [facility] Rx#:[id number] Sodium Chloride 0.9% 1, 20 50 10 000 ml @ 20 mls/hr IV . Q24H [facility] Rx#:[id number] cefTRIAXone 2 gm In 50 50 Sodium Chloride 0.9% 50 ml @ 100 mls/hr IVPB Q12HR [facility] Rx#:[id number] Oral 250 200 Output: Urine 1700 1125 Other: Voiding Method Bedside Commode Bedside Commode Urinal Urinal # Voids 1 # Bowel Movements 1 1 ABP, PAP, CO, CI - Last Documented Arterial Blood Pressure 167/54 Pulmonary Artery Pressure 36/15 Cardiac Output 5.5 Cardiac Index 2.5 - Exam CONSTITUTIONAL: Sitting to the bedside chair in the intensive care unit eating his breakfast, appears comfortable, cooperative, no apparent acute distress. HEENT: Neck is supple, no JVD, no lymphadenopathy. RESPIRATORY: Lungs sounds essentially clear throughout, diminished to his bilateral bases, few scattered crackles to his bilateral bases. Respirations are symmetrical and nonlabored. Currently on room air with oxygen saturations 96%. Able to achieve 1500 mL on his incentive spirometry. Strong cough. CARDIOVASCULAR: Regular rhythm and rate. S1 and S2 present, negative for S3, or gallop. Soft systolic murmur heard best to his left sternal border. Palpable peripheral pulses bilaterally, 2+ edema to his bilateral lower extremities with some scrotal edema present. No calf pain or tenderness noted. Sequential compression devices and thigh-high KAMRAN hose in place to his bilateral lower extremities. Telemetry showing normal sinus rhythm with first-degree heart block, occasional paced beats and occasional PVCs with heart rate in the 79 BPM. Temporary pacemaker remains on VVI backup at 50 BPM. GASTROINTESTINAL: Abdomen soft, nontender, nondistended. Active bowel sounds present 4 quadrants. Tolerating diet. Passing flatus. No guarding or rigidity. Bowel movement today 02/10/2022. GENITOURINARY: Continues to void. 925 mL of urine output in the last 8 hours. INTEGUMENTARY: Skin is warm and dry with no evidence of clubbing or cyanosis. Midline sternal incision is clean, dry and approximated. No redness or drainage present. Right upper anterior chest temporary pacemaker insertion site dressing clean, dry and intact. MUSKULOSKELETAL: Able to move all extremities, strength equal bilaterally, generalized weakness. PSYCHIATRIC: Alert and oriented to person place and time, appropriate affect, intact judgment and insight. INVASIVE LINES AND TUBES: External pacemaker present to right upper anterior chest, dressing dry and intact. Right arm midline IV in place and functioning. - Allied health notes Allied health notes reviewed: nursing - Labs CBC & Chem 7: 02/10/22 04:44 02/10/22 04:44 Labs: Abnormal Lab Results - Last 24 Hours (Table) 02/09/22 02/09/22 02/09/22 Range/Units 06:42 06:42 11:28 RBC 2.40 L (4.30-5.90) m/uL Hgb 7.6 L (13.0-17.5) gm/dL Hct 23.7 L (39.0-53.0) % RDW 16.7 H (11.5-15.5) % Sodium (137-145) mmol/L POC Glucose (mg/dL) 161 H (70-110) mg/dL Calcium 8.0 L (8.4-10.2) mg/dL Total Protein 5.3 L (6.3-8.2) g/dL Albumin 3.0 L (3.5-5.0) g/dL 02/09/22 02/09/22 02/10/22 Range/Units 16:38 20:13 04:44 RBC 2.29 L (4.30-5.90) m/uL Hgb 7.3 L (13.0-17.5) gm/dL Hct 22.5 L (39.0-53.0) % RDW 17.0 H (11.5-15.5) % Sodium (137-145) mmol/L POC Glucose (mg/dL) 189 H 165 H (70-110) mg/dL Calcium (8.4-10.2) mg/dL Total Protein (6.3-8.2) g/dL Albumin (3.5-5.0) g/dL 02/10/22 02/10/22 Range/Units 04:44 06:24 RBC (4.30-5.90) m/uL Hgb (13.0-17.5) gm/dL Hct (39.0-53.0) % RDW (11.5-15.5) % Sodium 136 L (137-145) mmol/L POC Glucose (mg/dL) 132 H (70-110) mg/dL Calcium 7.8 L (8.4-10.2) mg/dL Total Protein (6.3-8.2) g/dL Albumin (3.5-5.0) g/dL - Imaging and Cardiology Chest x-ray: report reviewed, image reviewed Assessment and Plan Assessment: 1. 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 Bacteremia with enterococcus faecalis, blood cultures currently negative to date. Final culture on the excised aortic valve showed enterococcus faecalis 3. Moderate mitral valve regurgitation 4. Altered mental status present on admission, resolved 5. History of severe aortic valve stenosis status post aortic valve replacement with a 23 mm Inspiris bioprosthetic aortic valve in November 2017 6. CAD with mid RCA stenosis 50% 7. Hypertension 8. Hyperlipidemia, treated, cholesterol 86, LDL 39 9. Insulin-dependent diabetes mellitus type 2, preoperative hemoglobin A1c 7.8% 10. Obesity 11. Obstructive sleep apnea without CPAP use 12. Moderate COPD, FEV1 59% of predicted 13. Asthma 14. Previous tobacco dependence 15. Benign prostatic hypertrophy, currently on Flomax, Cardura, Proscar 16. UTIs with pseudomonas in 01/2020 17. Gout 18. Bilateral internal carotid stenosis 50-70% 19. Postoperative acute blood loss anemia, expected given hemodilution and cardiopulmonary bypass pump 20. Medical debility, will need inpatient rehab on discharge Plan: 1. Continue to maximize medical therapy with aspirin, statin, Plavix, and Cozaar. Continue to hold beta erasto at this time due to his AV block, temporary pacemaker in place. 2. Encourage use of his incentive spirometry 10 times every hour while awake. Bronchodilators per pulmonology 3. Increase activity, ambulate as tolerated. PT/OT/cardiac rehab following. Patient needs lots of encouragement. Patient may not lift his right arm above the level of his heart due to pacemaker. 4. Will monitor daily labs and chest x-rays. Electrolyte replacement per protocol. Continue Lasix 40 mg IV daily and Zaroxolyn 2.5 mg by mouth twice a day. Potassium chloride 40 mEq by mouth 1 now. 5. Continue ampicillin and Rocephin per infectious disease recommendations. Right arm midline catheter placed on 02/05/2022 for outpatient antibiotics. 6. GI and DVT prophylaxis. 7. Pain control current medication regimen. 8. Insulin management per primary care service. Preoperative hemoglobin A1c was 7.8%. 9. Per Dr. Scruggs the patient will likely not need a permanent pacemaker placed. He will decrease the VVI rate on the temporary pacemaker to 40 in the next 24-48 hours. 10. Continue Zoloft 50 mg by mouth daily. 11. Discharge planning is in place, anticipate discharge to [facility] inpatient rehab when ready for discharge, in the next 48 hours. 12. Continue to record strict accurate intake and output, may bladder scan and straight cath for greater than 300 mL residual. 13. Daily weights. Shower daily. 14. More recommendations to follow based on patient's clinical course. Time with Patient: Greater than 30
[2022-02-10] MEDS: ATORVASTATIN 40 MG TAB PO SCH (08:35)
[2022-02-10] MEDS: HEPARIN SODIUM,PORCINE/PF 5,000 UNIT/0.5 ML SYRINGE SQ SCH ×3 (08:35→23:54)
[2022-02-10] MEDS: allopurinoL 100 MG TAB PO SCH (08:35)
[2022-02-10] MEDS: ASPIRIN 325 MG TAB PO SCH (08:35)
[2022-02-10] MEDS: TAMSULOSIN 0.4 MG CAP.ER.24H PO SCH (08:35)
[2022-02-10] MEDS: guaiFENesin 600 MG TABLET.ER PO SCH ×2 (08:35→20:47)
[2022-02-10] MEDS: LOSARTAN 50 MG TAB PO SCH (08:35)
[2022-02-10] MEDS: MONTELUKAST 10 MG TAB PO SCH (08:35)
[2022-02-10] MEDS: ACETYLCYSTEINE 800 MG/4 ML VIAL INHALATION SCH ×4 (08:43→21:23)
[2022-02-10] MEDS: SYMBICORT 160-4.5 MCG INHALER INHALATION SCH ×2 (08:44→21:22)
[2022-02-10] MEDS: IPRATROPIUM-ALBUTEROL 3 ML NEB INHALATION SCH ×4 (08:44→21:22)
--- NOTE | 2022-02-10 09:05 | P.PN ---
Subjective Progress Note Date: 02/10/22 02/04/2022, I'm seeing the patient for a follow-up. The patient is postoperative placement and the patient was found also to have an infective endocarditis. The patient is postop day #3 following a noted murmur placement. He had infective endocarditis in the preop blood cultures were negative. The tissue culture from the valve sternotomy positive for enterococcus and the patient is currently on IV Unasyn. The chest x-ray from today shows hepatomegaly and some microvessel congestion. Chest tubes at all removed. No fever. No chills. Is using the incentive spirometer and is pulling approximately 1000. The patient has an underlying cardiac rhythm that is third-degree AV block and the patient will need a pacemaker insertion. Urine output is adequate for now. The patient's has a white cell count of 6.8 with a hemoglobin of 7.8 and the sugar of 114. Platelet count is on 140. Magnesium is 2.6 with a ionized calcium of 4.9. Awake. Alert. His current [place] oxygen. Communicating. He has a right IJ Cordis and he still has an arterial line in his right upper extremity. 02/05/2022, the patient is postop day #5. Doing well. No specific complaints. Room air oxygen with a pulse ox of 99%. Chest x-ray from today is showing cardiomegaly, atelectatic changes in the lung base bilaterally, Ana vessel congestion and small amount of effusion or son the left. The patient has a PICC line in his right upper extremity. The sternotomy wires are also seen. As far as his cardiac rhythm, he continues to be paced. The plan is to ultimately inserted today pacemaker for high degree AV block. He continues to use incentive spirometer. He is afebrile. He has enterococcus on his valve and the patient is currently on IV ampicillin 2 g every 4 hours/Rocephin. The white cell count of 4.9 with a hemoglobin of 7.8 and a platelet count of 153. Sodium is 136 with a BUN of 18 and a creatinine of 1.06. 02/06/2022, the patient is postop day #6. He continues to have a high degree AV block. The patient has a temporary pacemaker in place. He is currently being paced most of the time. Epicardial wires were pulled out. Surgical was obstructing and intact. Remains on a combination of IV Rocephin and ampicillin. His blood work from today shows a hemoglobin of 7 otherwise, 5. Electrolytes are normal. He is using the incentive spirometer. His pulling approximately 1000. Review of the chest x-ray from today and shows some mild interstitial prominence. Otherwise no other acute abnormalities. No pneumothorax. The patient is receiving 40 mg of Lasix IV twice a day. 02/07/2022, the patient is postop day #7. He has been on the same antibiotic coverage includes IV Rocephin and ampicillin. Nofever for now. no diarrhea. No side effects from antibiotic treatment. He continues to be diuresed with Lasix and the patient has been in a slight negative fluid balance. Continues to have edema lower approximately bilaterally. Blood work from today shows a white cell count of 5.47.3 sodium is 137 bicarb was 23 BUN is 16 creatinine 0.9 albumin is 2.5.8. Chest x-ray from today was noted and there is no major interval change. The patient continues to receive Lasix 40 mg IV every 12 hours. He was admitted spirometer. No chest pain. Surgical incisions are clean and intact. He has a percutaneous pacemaker in place. The ultimate goal is to insert a permanent pacemaker once he completes a 4-6 week course of antibiotics. He is awake and alert. No focal neurological deficit. No nausea or vomiting. No diarrhea. Functionality still limited. Pulse ox is 97% on 2 L of oxygen nasal cannula. Epicardial leads were removed. 02/08/2022 , the patient is postop day number 8. he remains on a combination of IV Rocephin and ampicillin. doing well. Afebrile. hemodynamically stable. Cardiac rhythm is still paced. labs from today shows a white cell count of 5.5 w ith a hemoglobin of 7.4. BUN is at 60 with a creatinine of 1.1 penicillin level is at 139. He continues to be on IV Lasix 40 mg every 12 hours. his in a negative fluid balance of 1.3 L. Chest x-ray from today shows cardamom regularly. Atelectatic changes in lung bases bilaterally. interstitial edema has improved significantly. He is awake and alert. his oxygen on room air plan he is pulse oxing about 90%. He continues to use incentive spirometer. 2021, patient is postop day #9. Patient is doing very well. He has diuresed adequately over the past 24 hours and his negative bolus in order of 2.7 L at least. He remains on Lasix 40 mg IV every 24 hours and the patient is also on Zaroxolyn at a dose of 2.5 mg twice a day. His chest x-ray is showing exhalation views and smaller lung volumes. There is some atelectasis and some interstitial infiltrates. He does have cardiomegaly. Echocardiogram was done and it showed normal function of the prosthetic aortic valve. No significant regurgitation. The pulmonary artery pressure was mildly elevated. There was moderate degree of tricuspid regurgitation. Otherwise no other significant abnormalities were noted. The patient remains hemodynamically stable. Labs today are still pending. He has lost weight along with diuresis. He is on room air oxygen. He continues to use the same antibiotic coverage and he continues to be on incentive spirometer. No other significant events overnight. On 02/10/2022 the patient is being seen in follow-up in the intensive care unit. He is doing well. He is diuresing. Lower extremity edema and scrotal edema is also improving. Note that the patient is postoperative day #10. He is on Lasix 100 mg IV every 24 hours and is also Zaroxolyn at a dose of 2.5 mg by mouth twice a day. Urine output is excellent patient remains in a negative fluid balance. Chest x-ray still showing some interstitial edema and small left-sided pleural effusion. The patient's cardiac rhythm remained sinus. Normal cardiac issues. Surgical incisions are clean and intact. Limited echocardiogram showed a normal function of the prosthetic aortic valve. The patient is improving in terms of his intrinsic rhythm and he is rarely requiring his transvenous pacemaker is on ongoing cardiac monitoring. He is on no beta blockers for now. He remains on a combination of IV ampicillin and Rocephin. No nausea. No vomiting. No emesis. The hemoglobin is at 7.3 otherwise, the 4.5. Electrolytes are all within normal limits. No altered mentation. Objective - Vital Signs Vital signs: Vital Signs Temp 98.5 F 02/10/22 04:00 Pulse 70 02/10/22 08:47 Resp 12 02/10/22 07:00 BP 152/73 02/10/22 06:00 Pulse Ox 95 02/10/22 07:00 FiO2 50 02/08/22 10:00 Intake & Output 02/09/22 02/10/22 02/10/22 18:59 06:59 18:59 Intake Total 520 600 10 Output Total 1700 1125 Balance -1180 -525 10 Weight 112.7 kg Intake: IV 270 400 10 Ampicillin 2,000 mg In 200 300 Sodium Chloride 0.9% 100 ml @ 200 mls/hr IVPB Q4HR [facility] Rx#:[id number] Sodium Chloride 0.9% 1, 20 50 10 000 ml @ 20 mls/hr IV . Q24H [facility] Rx#:[id number] cefTRIAXone 2 gm In 50 50 Sodium Chloride 0.9% 50 ml @ 100 mls/hr IVPB Q12HR [facility] Rx#:[id number] Oral 250 200 Output: Urine 1700 1125 Other: Voiding Method Bedside Commode Bedside Commode Urinal Urinal # Voids 1 # Bowel Movements 1 1 ABP, PAP, CO, CI - Last Documented Arterial Blood Pressure 167/54 Pulmonary Artery Pressure 36/15 Cardiac Output 5.5 Cardiac Index 2.5 - Exam No acute distress, oriented 3. Currently on HEENT examination is grossly unremarkable. Neck supple. Full range of motion. No adenopathy thyromegaly or neck vein distention. Cardiovascular examination reveals regular rhythm rate. S1-S2 normal. No S3 or S4. Heart rate 87 bpm. Lungs reveal clear breath sounds. Breath sounds are equal bilaterally. No adventitious lung sounds including wheezes rhonchi or crackles. Saturations on 2 L are 96 %. Abdomen soft bowel sounds are heard. No masses or tenderness. Extremities are intact. No cyanosis clubbing or edema. Skin is without rash or lesion. Neurologic examination is brief but nonfocal. - Labs CBC & Chem 7: 02/10/22 04:44 02/10/22 04:44 Labs: Abnormal Lab Results - Last 24 Hours (Table) 02/09/22 02/09/22 02/09/22 Range/Units 06:42 11:28 16:38 RBC (4.30-5.90) m/uL Hgb (13.0-17.5) gm/dL Hct (39.0-53.0) % RDW (11.5-15.5) % Sodium (137-145) mmol/L POC Glucose (mg/dL) 161 H 189 H (70-110) mg/dL Calcium 8.0 L (8.4-10.2) mg/dL Total Protein 5.3 L (6.3-8.2) g/dL Albumin 3.0 L (3.5-5.0) g/dL 02/09/22 02/10/22 02/10/22 Range/Units 20:13 04:44 04:44 RBC 2.29 L (4.30-5.90) m/uL Hgb 7.3 L (13.0-17.5) gm/dL Hct 22.5 L (39.0-53.0) % RDW 17.0 H (11.5-15.5) % Sodium 136 L (137-145) mmol/L POC Glucose (mg/dL) 165 H (70-110) mg/dL Calcium 7.8 L (8.4-10.2) mg/dL Total Protein (6.3-8.2) g/dL Albumin (3.5-5.0) g/dL 02/10/22 Range/Units 06:24 RBC (4.30-5.90) m/uL Hgb (13.0-17.5) gm/dL Hct (39.0-53.0) % RDW (11.5-15.5) % Sodium (137-145) mmol/L POC Glucose (mg/dL) 132 H (70-110) mg/dL Calcium (8.4-10.2) mg/dL Total Protein (6.3-8.2) g/dL Albumin (3.5-5.0) g/dL Assessment and Plan Plan: Postoperative day #10, status post redo sternotomy, extraction of previous prosthetic aortic valve, and replacement with a 21 mm pericardial bioprosthesis aortic valve. clinically stable. The patient is on room air oxygen. Surgical incisions are clean and intact. Postthoracotomy. The patient is currently on room air oxygen. Surgical site is likely an intact. on IV Lasix 40 mg every 24 hours And Zaroxolyn the patient is diuresing adequately for now, continues to be in negative fluid balance with improvement in the peripheral edema acute prosthetic aortic valve endocarditis, secondary to Enterococcus faecalis. The patient remains on IV ampicillin/rocephin Prior history of aortic valve replacement, 4 years ago for aortic stenosis. High-grade AV block, secondary to endocarditis. The patient is improving in terms of his cardiac block and his current intrinsic rhythm with a first-degree AV block. A 12-lead EKG will be done to make sure there is no underlying fibrillation. Acute encephalopathy, secondary to endocarditis and sepsis. This is a covered and the patient is back as a normal mentation History of COPD, stable. Essential hypertension. Type 2 diabetes mellitus. BPH. Seasonal ALLERGIC rhinitis. Plan: Continue combination of Lasix and Zaroxolyn, this is resulted until excellent diuresis Labs are stable including a hemoglobin of 7.3 Monitor the fluid balance Chest x-ray from today was noted The patient is currently RA oxygen The patient is using the incentive spirometer Epicardial leads removed Hemodynamically stable Often a 12-lead EKG to make sure there is no underlying atrial fibrillation He may still ultimately need a pacemaker although the patient is showing improvement in his underlying intrinsic cardiac rhythm Cardiac rhythm is fairly high degree AV block and the patient will need a pacemaker insertion and this will be discussed with cardiology. The blood cultures are negative and the patient should need a pacemaker in 4-6 weeks' time after completing his antibiotic course. Chest x-ray is essentially showing postsurgical changes. There is some mild pulmonary vascular congestion is improving Continue Levemir insulin 26 units for blood sugar control in addition to NovoLog 5 units with meals Hydrocodone for pain control No beta blockers for now Increase mobility will continue to follow.
[2022-02-10] MEDS: metOLazone 2.5 MG TAB PO SCH ×2 (09:07→14:41)
[2022-02-10] MEDS: CLOTRIMAZOLE 1% CREAM 30 GM TUBE TOPICAL SCH ×2 (09:09→20:48)
[2022-02-10] MEDS: FINASTERIDE 5 MG TAB PO SCH (10:01)
[2022-02-10] MEDS: SERTRALINE 50 MG TAB PO SCH (10:01)
[2022-02-10] MEDS: FUROSEMIDE 10 MG/ML 4 ML VIAL IV SCH ×2 (10:01→15:40)
[2022-02-10] MEDS: DOXAZOSIN 4 MG TAB PO SCH ×2 (10:01→20:47)
--- NOTE | 2022-02-10 10:34 | P.PN ---
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 Patient is status post excision of the previous 23 mm Inspiris pericardial bioprosthesis and debridement of the annulus, aortic valve replacement using a 21 mm Inspiris pericardial bioprosthesis completed on 01/31/2022, the patient is status post external pacemaker placement as of 02/04/2022 On today's evaluation that is 02/10/2022 the patient remains to be afebrile, the patient is breathing comfortably on room air, patient denies having any chest pain, the patient did have occasional dry cough, the patient denies any nausea no vomiting no abdominal pain, and no diarrhea Objective - Vital Signs Vital signs: Vital Signs Temp 98.5 F 02/10/22 04:00 Pulse 70 02/10/22 08:47 Resp 12 02/10/22 07:00 BP 152/73 02/10/22 06:00 Pulse Ox 95 02/10/22 07:00 FiO2 50 02/08/22 10:00 Intake & Output 02/09/22 02/10/22 02/10/22 18:59 06:59 18:59 Intake Total 520 600 10 Output Total 1700 1125 Balance -1180 -525 10 Weight 112.7 kg Intake: IV 270 400 10 Ampicillin 2,000 mg In 200 300 Sodium Chloride 0.9% 100 ml @ 200 mls/hr IVPB Q4HR [facility] Rx#:[id number] Sodium Chloride 0.9% 1, 20 50 10 000 ml @ 20 mls/hr IV . Q24H [facility] Rx#:[id number] cefTRIAXone 2 gm In 50 50 Sodium Chloride 0.9% 50 ml @ 100 mls/hr IVPB Q12HR [facility] Rx#:[id number] Oral 250 200 Output: Urine 1700 1125 Other: Voiding Method Bedside Commode Bedside Commode Urinal Urinal # Voids 1 # Bowel Movements 1 1 ABP, PAP, CO, CI - Last Documented Arterial Blood Pressure 167/54 Pulmonary Artery Pressure 36/15 Cardiac Output 5.5 Cardiac Index 2.5 - Exam GENERAL DESCRIPTION: Elderly male up in the chair in no distress LUNGS: Unlabored breathing. Decreased breath sound at the base HEART: S1, S2, regular rate and rhythm. ABDOMEN: Soft, no tenderness , guarding or rigidity, no organomegaly EXTREMITIES: 2+ edema of feet. - Labs CBC & Chem 7: 02/10/22 04:44 02/10/22 04:44 Labs: Abnormal Lab Results - Last 24 Hours (Table) 02/09/22 02/09/22 02/09/22 Range/Units 11:28 16:38 20:13 RBC (4.30-5.90) m/uL Hgb (13.0-17.5) gm/dL Hct (39.0-53.0) % RDW (11.5-15.5) % Sodium (137-145) mmol/L POC Glucose (mg/dL) 161 H 189 H 165 H (70-110) mg/dL Calcium (8.4-10.2) mg/dL 02/10/22 02/10/22 02/10/22 Range/Units 04:44 04:44 06:24 RBC 2.29 L (4.30-5.90) m/uL Hgb 7.3 L (13.0-17.5) gm/dL Hct 22.5 L (39.0-53.0) % RDW 17.0 H (11.5-15.5) % Sodium 136 L (137-145) mmol/L POC Glucose (mg/dL) 132 H (70-110) mg/dL Calcium 7.8 L (8.4-10.2) mg/dL Assessment and Plan (1) Endocarditis Current Visit: Yes Status: Acute Code(s): I38 - ENDOCARDITIS, VALVE UNSPECIFIED SNOMED Code(s): 68360232 Plan: 1-patient with Enterococcus faecalis bacteremia secondary to bioprosthetic aortic valve endocarditis now with development of complication with bradycardia arrhythmia concerning for aortic root abscess s/p temporary pacemaker placement And the patient is status postcardiac cath completed on 01/27/2022 in preparation for aortic valve surgery 2- patient is status post aortic valve replacement completed on 01/31/2022 culture positive for Enterococcus faecalis sensitive to penicillin, patient is status post external pacemaker placement because of heart block 3-patient slowly clinically improving and the patient has cleared his bacteremia , patient to continue with the current treatment of ampicillin and Rocephin , plan is for total of 6 weeks from surgery Time with Patient: Less than 30
--- NOTE | 2022-02-10 11:13 | P.PN ---
Subjective Progress Note Date: 02/10/22 This is Andrea Hardy NP, I'm dictating on behalf of Dr. Scruggs's H&P and A&P. Patient was interviewed and examined. Patient is a pleasant 76 year old male who was found to be in complete heart block, and had a temporary external pacemaker placed. He is doing well. No complaints of chest pain, dizziness, shortness of breath. The insertion site of the pacemaker lead is free from signs/symptoms of infection. His current rhythm is normal sinus with 1st degree AV block, heart rate in the 50's-60's. He is rarely paced. GENERAL: Well-appearing, well-nourished and in no acute distress. NECK: Supple without JVD or thyromegaly. LUNGS: Poor air entry noted on the left lung dill, right is clear to auscultation. Respiration equal and unlabored. No wheezes, rales or rhonchi. HEART: Regular rate and rhythm without murmurs, rubs or gallops. S1 and S2 heard. EXTREMITIES: Normal range of motion, no edema. No clubbing or cyanosis. Peripheral pulses intact and strong. VITALS: Temp 97.9, pulse 76, respirations 18, blood pressure 145/72, O2 saturation 95% on room air TELEMETRY: Normal sinus rhythm with first-degree heart block LABS: White count 4.9, hemoglobin 7.3, platelets 2:15, sodium 136, potassium 4.2, B1 12, creatinine 0.97, calcium 7.8. 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 Scruggs only Recommend aggressive pulmonary hygiene Recommend ambulation If patient's rhythm continues as it is, possible external pacemaker removal in 2 weeks Further recommendations based on patient's clinical course. Objective - Vital Signs Vital signs: Vital Signs Temp 98.5 F 02/10/22 04:00 Pulse 77 02/10/22 07:00 Resp 12 02/10/22 07:00 BP 152/73 02/10/22 06:00 Pulse Ox 95 02/10/22 07:00 FiO2 50 02/08/22 10:00 Intake & Output 02/09/22 02/10/22 02/10/22 18:59 06:59 18:59 Intake Total 520 600 10 Output Total 1700 1125 Balance -1180 -525 10 Weight 112.7 kg Intake: IV 270 400 10 Ampicillin 2,000 mg In 200 300 Sodium Chloride 0.9% 100 ml @ 200 mls/hr IVPB Q4HR [facility] Rx#:[id number] Sodium Chloride 0.9% 1, 20 50 10 000 ml @ 20 mls/hr IV . Q24H [facility] Rx#:[id number] cefTRIAXone 2 gm In 50 50 Sodium Chloride 0.9% 50 ml @ 100 mls/hr IVPB Q12HR [facility] Rx#:[id number] Oral 250 200 Output: Urine 1700 1125 Other: Voiding Method Bedside Commode Bedside Commode Urinal Urinal # Voids 1 # Bowel Movements 1 1 ABP, PAP, CO, CI - Last Documented Arterial Blood Pressure 167/54 Pulmonary Artery Pressure 36/15 Cardiac Output 5.5 Cardiac Index 2.5 - Labs CBC & Chem 7: 02/10/22 04:44 02/10/22 04:44 Labs: Abnormal Lab Results - Last 24 Hours (Table) 02/09/22 02/09/22 02/09/22 Range/Units 06:42 11:28 16:38 RBC (4.30-5.90) m/uL Hgb (13.0-17.5) gm/dL Hct (39.0-53.0) % RDW (11.5-15.5) % Sodium (137-145) mmol/L POC Glucose (mg/dL) 161 H 189 H (70-110) mg/dL Calcium 8.0 L (8.4-10.2) mg/dL Total Protein 5.3 L (6.3-8.2) g/dL Albumin 3.0 L (3.5-5.0) g/dL 02/09/22 02/10/22 02/10/22 Range/Units 20:13 04:44 04:44 RBC 2.29 L (4.30-5.90) m/uL Hgb 7.3 L (13.0-17.5) gm/dL Hct 22.5 L (39.0-53.0) % RDW 17.0 H (11.5-15.5) % Sodium 136 L (137-145) mmol/L POC Glucose (mg/dL) 165 H (70-110) mg/dL Calcium 7.8 L (8.4-10.2) mg/dL Total Protein (6.3-8.2) g/dL Albumin (3.5-5.0) g/dL 02/10/22 Range/Units 06:24 RBC (4.30-5.90) m/uL Hgb (13.0-17.5) gm/dL Hct (39.0-53.0) % RDW (11.5-15.5) % Sodium (137-145) mmol/L POC Glucose (mg/dL) 132 H (70-110) mg/dL Calcium (8.4-10.2) mg/dL Total Protein (6.3-8.2) g/dL Albumin (3.5-5.0) g/dL
[2022-02-10 11:21] LABS: Glucose,Whole Blood 116 mg/dL (70-110)
[2022-02-10 16:17] LABS: Glucose,Whole Blood 157 mg/dL (70-110)
[2022-02-10 20:04] LABS: Glucose,Whole Blood 196 mg/dL (70-110)
[2022-02-10] MEDS: SENNOSIDES-DOCUSATE SODIUM 1 EACH TAB PO SCH (20:48)
[2022-02-10] MEDS: INSULIN DETEMIR (LEVEMIR) 100 UNIT/ML SYR SQ SCH (20:48)
[2022-02-10] MEDS: ACETAMINOPHEN TAB 500 MG TAB PO PRN (21:01)
--- NOTE | 2022-02-10 22:09 | P.PN ---
Subjective Progress Note Date: 01/10/22 This is a 76-year-old male patient with past medical history of hypertension with hypertensive cardiovascular disease, hyperlipidemia, diabetes mellitus type 2 with diabetic polyneuropathy, enlarged prostate, history of aortic valve disease status post aortic valve replacement with a 23 mm valve on 12/04/2017, prior to that, left heart catheterization revealed 30-40% stenosis in the RCA in 2018, history of melanoma status post resection 12/07/2021, from the back. Patient initially presented to [facility] with mental status changes with significant encephalopathy. CAT scan of the brain did not show any acute infarct or bleed. Patient did have leukocytosis and low-grade fever. He is status post IV fluid resuscitation, he was started on IV antibiotics initially in the form of Levaquin and subsequently changed to ampicillin and ceftriaxone by Dr. Cunningham. EKG did not show any evidence of acute changes. CAT scan of the chest abdomen and pelvis showed some perinephric stranding without evidence of hydronephrosis, there was evidence of diverticulosis without diverticulitis. CAT scan of the chest showed evidence of cardiomegaly with bilateral pleural effusion and possible pulmonary fibrosis. CAT scan of the cervical spine did show evidence of spondylosis of cervical spine without evidence of fracture. CAT scan of the brain showed brain atrophy without evidence of acute infarct or bleed, small vessel disease present. Patient was initially admitted to [facility] where he was followed by infectious disease as well as cardiology. He underwent a REESE on 01/22 revealed left ventricular systolic function normal at 55-60%, small aortic valve veget ation was present measuring 0.53 cm. Patient has bioprosthetic aortic valve. Moderate MR, [id number] tricuspid regurgitation, no pericardial effusion. Patients blood cultures were positive for enterococcus species. Patient was in a sinus rhythm with a first-degree AV block but subsequently developed a high- grade AV block on 01/24 with progressive worsening of the AV block and PVCs. Patient is complaining of left lower rib cage chest discomfort. No palpitations or dizziness. Patient was then transferred to [facility] to be evaluated by cardiothoracic surgery team. Patient is seen today in the intensive care unit, consults added for cardiology, hogshead packer, cardiothoracic surgery. 01/25: Patient is seen today in the ICU. He states he slept well last night. He states he is better able to take a deep breath with less pain on his left chest wall. He is able to reach 1500 MLS on incentive spirometry. He is complaining of tingling in bilateral feet. Has not had a bowel movement but feels that he needs to today. Senokot scheduled added. Blood sugar was low this morning and glimepiride decreased to 2 mg twice daily and Levemir decreased to 20 units. Hernan anaya has an external catheter in place draining clear emily urine. He has been evaluated by cardiology, cardiothoracic surgery and hogshead packer. Cardiology is planning for temporary pacemaker. C plan to continue close monitoring in the intensive care unit, monitor results of the blood cultures.hest x-ray reveals postoperative changes similar to prior exam. There may be some interstitial changes. Carotid ultrasound reveals slight elevated velocity in the internal carotid arteries bilaterally suggestive of 50-70 percent stenosis. There is antegrade flow in the vertebral arteries. Panorex CAT scan completed without any significant abnormalities. Arterial ultrasound bilateral lower extremities revealed normal ankle brachial indices. 01/26: Patient is lying down in bed in no acute distress, yesterday underwent temporary TVP for 2nd degree AV block, plan is to repeat REESE for further eval uation of possible abscess formation and the degree of involvement of the aortic ring of the bioprosthetic aortic valve, we will continue with IV Rocephin and Ampicillin for now, repeated blood cltures from 01/24/2022 still no growth so far, also nasal screen negative for MSSA.MRSA, bedside spirometer showed FEV2 38 % of predicted, we will continue with aggressive pulmonary toiletting, patient has been seen by multiple services , prognosis continues to be guarded, spoke with his daughter and his over the phone , they are contemplating if [facility] should [facility] or [facility], our cardiothoracic team is involved and hopefully will see patient today and alleviate his concerns and give their recommendations on surgical intervention. 01/28: The patient remains in the intensive care unit patient has been afebrile, heart rate 70s, blood pressure 157/77, pulse ox 94% on room air. groundwater monitoring technician is a paced rhythm. Cardiac catheterization, performed on 01/27, reveals moderate disease in the mid RCA, no evidence of high-grade stenosis in the LAD or left circumflex and placement of a temporary pacemaker. Patient will be seen by a dentist this afternoon. He is utilizing his incentive spirometry regularly and reaching 2000 2500. He is eating all of his food. He states he had a bowel movement yesterday and today. He is urinating without any difficulty. Patient is expecting to be seen by Dr. Lopez to discuss surgical options. WBC 6.4, hemoglobin 0.5, platelet count 235. BMP within normal limits. Calcium 8.2. Capillary blood glucose running between 126 and 196. Blood culture obtained on 01/24 showing no growth after 72 hours 1 specimen. 01/29: Patient was seen by the dentist yesterday and was cleared by surgery. He complains of dry mouth when he woke up this morning but otherwise no new complaints. groundwater monitoring technician is paced rhythm. Pulse ox 95% on room air. Blood pressure elevated 182/87. Hydrochlorothiazide 25 mg added to his blood pressure regime. Repeat blood work reveals WBC 5.3, hemoglobin 11.7, platelet count 230. Electrolytes and renal function normal. Capillary blood glucose running between 97-194. Patient is waiting to hear from the cardiothoracic team regarding plan for surgery. 01/30: Patient is scheduled for redo aortic valve replacement, possible aortic root replacement on 01/31. a consult was added for urology yesterday for recurrent UTIs. Patient denies dysuria, he is able to void spontaneously and is maintained on Flomax and Proscar. Dr. Farooq believes the culture from 2019 is contamination rather than actual UTI with history of phimosis contributing to positive culture. Plan to follow up with Dr. Emmanuel as normally scheduled. patient is continued on antibiotics the form of ampicillin and Rocephin. patient has remained afebrile. Pulse ox is 97% on room air. CM paced rhythm. Blood pressure 140/67 and has been improved overnight with addition of hydrochlorothiazide yesterday. Repeat blood work reveals WBC 6.1, hemoglobin 11.7, platelet count 237. Electrolytes and renal function are normal with creatinine of 1.08. White blood glucose running between 109 and 177. 01/31: Patient remains afebrile overnight with heart rate 49-54. Blood pressure 139/69 and pulse ox 94% on room air. Repeat blood work reveals WBC 5.0, hemoglobin 11.1, platelet count 246. Sodium 136, potassium 4.4, chloride 103, CO2 24, BUN 29 creatinine 1.05. Blood sugar 122. Capillary blood glucose running between 106 and 166. Patient is scheduled for redo aortic valve replacement today. 02/01: Patient is status post aortic valve replacement with bioprosthetic device. He remains in the intensive care unit. He was successfully extubated last evening and currently on 2 L nasal cannula with pulse ox of 97%. Heart rate is running in the 80s, blood pressure 114/60. groundwater monitoring technician is paced rhythm. Repeat blood work reveals WBC 6.3, hemoglobin 7.3, platelet count 150. Sodium 136, potassium 4.7, chloride 108, CO2 22, BUN 20 creatinine 1.17. Capillary blood glucose running between 110 and 127. Magnesium 2.6. Intraoperative tissue cultures are in process. Repeat chest x-ray reveals postoperative changes with bilateral infiltrate and small effusions. Patient has been started on Plavix, aspirin 325 mg daily, patient started on insulin drip, Levemir and Farxiga discontinued. The patient is complaining of sensation like urethral spasm like he has a urinary tract infection, Hargrove catheter is in place and draining. No hematuria. Patient states he is only sleeping a few minutes at a time. He does not have much appetite. 02/02 : Patient is feeling weak today , somewhat forgetful, did receive one unit of PRBC, chest tubes were removed and he will be switched to Levemir 24 units sc qhs and Novolog 5 units AC meals plus SSI and he will comeoff insulin drip, he continues to have dysuria, has Hargrove catheter in place and we will continue to have chronic phimosis that will require surgery down the line. 02/04: Patient is resting recliner in the ICU. He states he slept a little bit last night but is consistently not getting much sleep. He states he feels less short of breath today. He is complaining of needing to void but he continues to have a Hargrove catheter in place. He has not had a bowel movement for the last 3- 4 days. Lactulose added. He also states that he continues to have decreased appetite which may improve after having a bowel movement. Patient is scheduled for external pacemaker today with Dr Scruggs. groundwater monitoring technician is paced rhythm. He is currently on insulin 24 units of Levemir at bedtime along with 5 units of NovoLog with meals and NovoLog scale. Blood Glucose Running between 130 and 203. Repeat Blood Work Reveals WBC 6.2, Hemoglobin 7.8 up to 140. Sodium 130, Potassium 4.1, Chloride 102, CO2 20, BUN 27 Creatinine 1.15. Magnesium 2.6. Patient Received 1 Unit of Packed RBCs Yesterday. Tissue Culture Is Positive for Enterococcus Faecalis. Chest x-ray this morning reveals difficult to exclude pulmonary edema, pneumonia, atelectasis and possible associated effusion. Patient is reaching 1500 mL on incentive spirometry. 02/05: Patient states that he wishes that he felt better. He complains of hacking cough and wheezing and he had a nebulizer treatment a couple hours ago and states it did not help him. He also complains of not being able to sleep. He states he has not had a bowel movement despite multiple medications for bowel regime. Patient have a repeat Dulcolax suppository this morning and lactulose increased to 3 times daily. Hargrove catheter remains in place. Yesterday, patient underwent externalized temporary pacemaker implantation yesterday with Dr. 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 Patient will be able to be discharged with this device in place. Patient remains in the intensive care unit. He's been afebrile, heart rate in the 80s, blood pressure 129/74, pulse ox 98% on 2 L nasal cannula. Repeat blood work reveals WBC 4.9, hemoglobin 7.8, platelet count 153. Sodium 136 otherwise electrolytes and renal function are within normal limits. Calcium is 7.7. Capillary blood glucose running between 90-136. Repeat chest x-ray in pending. 02/06: Patient remains in the intensive care unit, he is seen today for resting in recliner. He continues to state that he is tired and not sleeping. He states he was able to walk around the unit yesterday and did well with physical therapy. Patient was evaluated by Dr. Morgan and appears to be a good candidate waiting for insurance approval. Patient did state he had a bowel movement after multiple medication regime. Hargrove was discontinued yesterday and he's been able to void. Patient does complain of shortness of breath order for Lasix 40 mg IV 1 today and will increase this to 40 mg IV twice daily. Patient has significant 3+ edema, significant edema in the scrotal/penis area. He is able t o void despite this edema. Patient states that he has not been eating well and continues to not have any appetite. Patient remains afebrile, heart rate in the 80s, blood pressure 132/86, pulse ox 94% on room air. Repeat blood work reveals WBC 5, hemoglobin 7, platelet count 181. Sodium 135 otherwise electrolytes and renal function are normal. Her blood glucose running between 158 and 221. Le vemir will be increased by 2 units. 02/07: Patient remains in the intensive care unit he has been afebrile, heart rate in the 80s, blood pressure 149/72, pulse ox 96% on room air. Repeat blood work reveals WBC 5.4, hemoglobin 7.3 and platelet count 207. Sodium 137, potassium 4.2, chloride 107, CO2 21, BUN 16 creatinine 0.96. Currently blood glucose running between 165 and 193. Repeat chest x-ray reveals cardiomegaly with bilateral infiltrate and pleural effusion stable correlate for mild venous congestion. Pulmonary medicine has suggested a transthoracic echocardiogram to evaluate the aortic valve function especially with his ongoing edema. Echocardiogram is being done today. Pacemaker has been turned down to 40 and patient is currently in first grade lock 70 bpm. Lasix has been increased by cardiology to 80 mg in the a.m. and 40 mg in the afternoon. 02/08: Patient remains in the intensive care unit. He states that he is finally feeling better because he slept for 5-6 hours last night. He continues to have significant edema especially concerning to him is the scrotal area. He has able to void on his own. Patient was started on Mucomyst yesterday. Echocardiogram from yesterday revealed Repeat chest x-ray reveals findings similar to prior exam, there may be basilar atelectasis difficult to exclude small effusion. Difficult to exclude mild interstitial edema. Cardiomegaly. Patient remains afebrile, heart rate in the 50s and 60s, blood pressure 99/56, pulse ox 97% on room air. groundwater monitoring technician is sinus rhythm with a first-degree block Repeat blood work reveals WBC 5.5, hemoglobin 7.4, platelet count 213. Electrolytes and renal function are within normal limits. White blood glucose running between 128 and 260. Patient is reaching 1250 on incentive spirometry. 02/09/2022 Patient is currently in the MICU. Lying in the bed. On room air. Awake alert and oriented x3. Patient does have cough and congestion. Also having significant bilateral lower extremity edema and scrotal edema. Chest x-ray showed expiratory exam, difficult to exclude interstitial edema, basal atelectasis versus pneumonia. Patient is being current on Lasix 40 mg every 24 hours and also on Zaroxolyn 2.5 mg twice daily. No complaints of chest pain. No headache or dizziness or lightheadedness. Laboratory data showed WBC 5.4 hemoglobin 7.6 and platelets 217 Sodium 138 potassium 4.1 chloride 108 BUN 13 and creatinine 1.01 and blood sugar is 123 this morning Current medications reviewed. REVIEW OF SYSTEMS Constitutional: No fever, no chills, no night sweats. No weight change. No weakness, denies fatigue no lethargy. Reports daytime sleepiness. EENT: No headache. No blurred vision or double vision, no loss of vision. No loss of Hearing, no ringing in the ears, no dizziness. No nasal drainage or congestion. No epistaxis. No sore throat. Lungs: Reports mild shortness of breath improving, reports cough, no sputum production. Reports wheezing. Cardiovascular: Reports chest discomfort, positive edema 3+. No palpitations. No paroxysmal nocturnal dyspnea. No orthopnea. No lightheadedness or dizziness. No syncopal episodes. Abdominal: No abdominal pain. No nausea, vomiting. No diarrhea. No constipation. No bloody or tarry stools. Reports loss of appetite. Genitourinary: No dysuria, increased frequency, urgency. No urinary retention- Hargrove catheter in place. Musculoskeletal: No myalgias. No muscle weakness, no gait dysfunction, no frequent falls. No back pain. No neck pain. Integumentary: No wounds, no lesions. No rash or pruritus. No unusual bruising. Neurologic: No aphasia. No facial droop. No change in mentation. No head injury. No headache. No paralysis. No paresthesia. Psychiatric: No depression. No anxiety. No mood swings. Reports insomnia Endocrine: Noted abnormal blood sugars. No weight change. No excessive sweating or thirst. No cold intolerance. PHYSICAL EXAMINATION Gen: This is a 76-year-old male. He is resting in ICU recliner and appears to be in no acute distress. HEENT: Head is atraumatic, normocephalic. Pupils equal, round. Sclerae is anicteric. NECK: Supple. No JVD. No lymphadenopathy. No thyromegaly. LUNGS: Decrease breath sounds at the bases No wheezes or rhonchi, sternotomy site is covered with dressing HEART: First heart sound is depressed, second heart sound is normal, aortic valve click, systolic ejection murmur 2/6 at the left sternal border. groundwater monitoring technician is paced rhythm. External pacemaker on the right anterior chest wall co quintin with dressing. ABDOMEN: Soft. Bowel sounds are present. No masses. No tenderness. Positive edema to the abdomen and back, positive scrotal and penile edema. EXTREMITIES: Bilateral pedal edema 3+. No calf tenderness. Dorsalis pedis +2 bilaterally. Bilateral hand edema. NEUROLOGICAL: Patient is awake, alert and oriented x3. Cranial nerves 2 through 12 are grossly intact. Muscle power 4 out of 5 upper and lower extremities bilaterally. ASSESSMENT AND PLAN 1. 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 Patient is continued on IV Lasix 80 mg daily and Zaroxolyn BID. 2. Third degree AV block. has a temporary Pacemaker and is status post external temporary pacemaker 02/04. 3. Enterococcus Feacalis Endocarditis and bacteremia. we will continue with Rocephin 2 gr IVPB Q 12 hours and Ampicillin 2 gr IVPB Q 6 hours, ID team is following. 4. Hypertension with hypertensive cardiovascular disease. Continue patient on Hydralazine 50 mg po bid and Cardura 8 mg po bid, losartan 100 mg daily. 5. Hyperlipidemia. Continue atorvastatin 40 mg at bedtime. 6. Diabetes mellitus type 2. Continue patient on Levemir 26 units Sc qhs , Novolog 5 units AC meals tid along with SSI. 7. Benign prostatic hypertrophy. Continue Flomax 0.4 mg daily, continue finasteride 5 mg daily 8. 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 Continue patient on Symbicort 160- 4.5 g 2 puffs twice daily, Mucomyst 200 mg 4 times daily per nebulizer, albuterol nebulizer every 4 hours as needed for shortness of breath, reviewed bedside spirometery with FEV1 38 % of predicted. 9. ALLERGIC rhinitis. Continue Singulair 10 mg at bedtime. 10. Chronic gout. Continue allopurinol 100 mg daily. 11. DVT prophylaxis. Heparin 5000 units subcu every 8 hours. 12. GI prophylaxis. Protonix 40 mg daily. 13. Acute blood loss Anemia, expected with surgery S/P 3 units of PRBCs. 14. Fluid overload secondary to IV fluids, surgical intervention. Patient is continued on Lasix 80 mg in the morning 40 mg in the afternoon. Repeat echocardiogram as above. 15. Medical debility.He will require inpatient rehab. CODE STATUS: Full code. Objective - Vital Signs Vital signs: Vital Signs Temp 98.7 F 02/10/22 16:00 Pulse 68 02/10/22 16:37 Resp 16 02/10/22 16:00 BP 167/77 02/10/22 16:00 Pulse Ox 94 L 02/10/22 16:00 FiO2 50 02/08/22 10:00 Intake & Output 02/09/22 02/10/22 02/10/22 18:59 06:59 18:59 Intake Total 520 600 100 Output Total 1700 1125 810 Balance -1180 -525 -710 Weight 112.7 kg Intake: IV 270 400 100 Ampicillin 2,000 mg In 200 300 Sodium Chloride 0.9% 100 ml @ 200 mls/hr IVPB Q4HR [facility] Rx#:[id number] Sodium Chloride 0.9% 1, 20 50 100 000 ml @ 20 mls/hr IV . Q24H [facility] Rx#:[id number] cefTRIAXone 2 gm In 50 50 Sodium Chloride 0.9% 50 ml @ 100 mls/hr IVPB Q12HR [facility] Rx#:[id number] Oral 250 200 Output: Urine 1700 1125 810 Other: Voiding Method Bedside Commode Bedside Commode Bedside Commode Urinal Urinal Urinal # Voids 1 1 # Bowel Movements 1 1 1 ABP, PAP, CO, CI - Last Documented Arterial Blood Pressure 167/54 Pulmonary Artery Pressure 36/15 Cardiac Output 5.5 Cardiac Index 2.5 - Labs CBC & Chem 7: 02/10/22 04:44 02/10/22 04:44 Labs: Abnormal Lab Results - Last 24 Hours (Table) 02/09/22 02/10/22 02/10/22 Range/Units 20:13 04:44 04:44 RBC 2.29 L (4.30-5.90) m/uL Hgb 7.3 L (13.0-17.5) gm/dL Hct 22.5 L (39.0-53.0) % RDW 17.0 H (11.5-15.5) % Sodium 136 L (137-145) mmol/L POC Glucose (mg/dL) 165 H (70-110) mg/dL Calcium 7.8 L (8.4-10.2) mg/dL 02/10/22 02/10/22 02/10/22 Range/Units 06:24 11:19 16:16 RBC (4.30-5.90) m/uL Hgb (13.0-17.5) gm/dL Hct (39.0-53.0) % RDW (11.5-15.5) % Sodium (137-145) mmol/L POC Glucose (mg/dL) 132 H 116 H 157 H (70-110) mg/dL Calcium (8.4-10.2) mg/dL
--- NOTE | 2022-02-10 22:15 | P.PN ---
Subjective Progress Note Date: 02/10/22 This is a 76-year-old male patient with past medical history of hypertension with hypertensive cardiovascular disease, hyperlipidemia, diabetes mellitus type 2 with diabetic polyneuropathy, enlarged prostate, history of aortic valve disease status post aortic valve replacement with a 23 mm valve on 12/04/2017, prior to that, left heart catheterization revealed 30-40% stenosis in the RCA in 2018, history of melanoma status post resection 12/07/2021, from the back. Patient initially presented to [facility] with mental status changes with significant encephalopathy. CAT scan of the brain did not show any acute infarct or bleed. Patient did have leukocytosis and low-grade fever. He is status post IV fluid resuscitation, he was started on IV antibiotics initially in the form of Levaquin and subsequently changed to ampicillin and ceftriaxone by Dr. Cunningham. EKG did not show any evidence of acute changes. CAT scan of the chest abdomen and pelvis showed some perinephric stranding without evidence of hydronephrosis, there was evidence of diverticulosis without diverticulitis. CAT scan of the chest showed evidence of cardiomegaly with bilateral pleural effusion and possible pulmonary fibrosis. CAT scan of the cervical spine did show evidence of spondylosis of cervical spine without evidence of fracture. CAT scan of the brain showed brain atrophy without evidence of acute infarct or bleed, small vessel disease present. Patient was initially admitted to [facility] where he was followed by infectious disease as well as cardiology. He underwent a REESE on 01/22 revealed left ventricular systolic function normal at 55-60%, small aortic valve veget ation was present measuring 0.53 cm. Patient has bioprosthetic aortic valve. Moderate MR, [id number] tricuspid regurgitation, no pericardial effusion. Patients blood cultures were positive for enterococcus species. Patient was in a sinus rhythm with a first-degree AV block but subsequently developed a high- grade AV block on 01/24 with progressive worsening of the AV block and PVCs. Patient is complaining of left lower rib cage chest discomfort. No palpitations or dizziness. Patient was then transferred to [facility] to be evaluated by cardiothoracic surgery team. Patient is seen today in the intensive care unit, consults added for cardiology, head sampler, cardiothoracic surgery. 01/25: Patient is seen today in the ICU. He states he slept well last night. He states he is better able to take a deep breath with less pain on his left chest wall. He is able to reach 1500 MLS on incentive spirometry. He is complaining of tingling in bilateral feet. Has not had a bowel movement but feels that he needs to today. Senokot scheduled added. Blood sugar was low this morning and glimepiride decreased to 2 mg twice daily and Levemir decreased to 20 units. Hernan anaya has an external catheter in place draining clear emily urine. He has been evaluated by cardiology, cardiothoracic surgery and head sampler. Cardiology is planning for temporary pacemaker. C plan to continue close monitoring in the intensive care unit, monitor results of the blood cultures.hest x-ray reveals postoperative changes similar to prior exam. There may be some interstitial changes. Carotid ultrasound reveals slight elevated velocity in the internal carotid arteries bilaterally suggestive of 50-70 percent stenosis. There is antegrade flow in the vertebral arteries. Panorex CAT scan completed without any significant abnormalities. Arterial ultrasound bilateral lower extremities revealed normal ankle brachial indices. 01/26: Patient is lying down in bed in no acute distress, yesterday underwent temporary TVP for 2nd degree AV block, plan is to repeat REESE for further eval uation of possible abscess formation and the degree of involvement of the aortic ring of the bioprosthetic aortic valve, we will continue with IV Rocephin and Ampicillin for now, repeated blood cltures from 01/24/2022 still no growth so far, also nasal screen negative for MSSA.MRSA, bedside spirometer showed FEV2 38 % of predicted, we will continue with aggressive pulmonary toiletting, patient has been seen by multiple services , prognosis continues to be guarded, spoke with his daughter and his over the phone , they are contemplating if he should go to a [facility] like [facility] or [facility], our cardiothoracic team is involved and hopefully will see patient today and alleviate his concerns and give their recommendations on surgical intervention. 01/28: The patient remains in the intensive care unit patient has been afebrile, heart rate 70s, blood pressure 157/77, pulse ox 94% on room air. teletypesetter monitor is a paced rhythm. Cardiac catheterization, performed on 01/27, reveals moderate disease in the mid RCA, no evidence of high-grade stenosis in the LAD or left circumflex and placement of a temporary pacemaker. Patient will be seen by a dentist this afternoon. He is utilizing his incentive spirometry regularly and reaching 2000 2500. He is eating all of his food. He states he had a bowel movement yesterday and today. He is urinating without any difficulty. Patient is expecting to be seen by Dr. Lopez to discuss surgical options. WBC 6.4, hemoglobin 0.5, platelet count 235. BMP within normal limits. Calcium 8.2. Capillary blood glucose running between 126 and 196. Blood culture obtained on 01/24 showing no growth after 72 hours 1 specimen. 01/29: Patient was seen by the dentist yesterday and was cleared by surgery. He complains of dry mouth when he woke up this morning but otherwise no new complaints. teletypesetter monitor is paced rhythm. Pulse ox 95% on room air. Blood pressure elevated 182/87. Hydrochlorothiazide 25 mg added to his blood pressure regime. Repeat blood work reveals WBC 5.3, hemoglobin 11.7, platelet count 230. Electrolytes and renal function normal. Capillary blood glucose running between 97-194. Patient is waiting to hear from the cardiothoracic team regarding plan for surgery. 01/30: Patient is scheduled for redo aortic valve replacement, possible aortic root replacement on 01/31. a consult was added for urology yesterday for recurrent UTIs. Patient denies dysuria, he is able to void spontaneously and is maintained on Flomax and Proscar. Dr. Farooq believes the culture from 2019 is contamination rather than actual UTI with history of phimosis contributing to positive culture. Plan to follow up with Dr. Emmanuel as normally scheduled. patient is continued on antibiotics the form of ampicillin and Rocephin. patient has remained afebrile. Pulse ox is 97% on room air. CM paced rhythm. Blood pressure 140/67 and has been improved overnight with addition of hydrochlorothiazide yesterday. Repeat blood work reveals WBC 6.1, hemoglobin 11.7, platelet count 237. Electrolytes and renal function are normal with creatinine of 1.08. White blood glucose running between 109 and 177. 01/31: Patient remains afebrile overnight with heart rate 49-54. Blood pressure 139/69 and pulse ox 94% on room air. Repeat blood work reveals WBC 5.0, hemoglobin 11.1, platelet count 246. Sodium 136, potassium 4.4, chloride 103, CO2 24, BUN 29 creatinine 1.05. Blood sugar 122. Capillary blood glucose running between 106 and 166. Patient is scheduled for redo aortic valve replacement today. 02/01: Patient is status post aortic valve replacement with bioprosthetic device. He remains in the intensive care unit. He was successfully extubated last evening and currently on 2 L nasal cannula with pulse ox of 97%. Heart rate is running in the 80s, blood pressure 114/60. teletypesetter monitor is paced rhythm. Repeat blood work reveals WBC 6.3, hemoglobin 7.3, platelet count 150. Sodium 136, potassium 4.7, chloride 108, CO2 22, BUN 20 creatinine 1.17. Capillary blood glucose running between 110 and 127. Magnesium 2.6. Intraoperative tissue cultures are in process. Repeat chest x-ray reveals postoperative changes with bilateral infiltrate and small effusions. Patient has been started on Plavix, aspirin 325 mg daily, patient started on insulin drip, Levemir and Farxiga discontinued. The patient is complaining of sensation like urethral spasm like he has a urinary tract infection, Hargrove catheter is in place and draining. No hematuria. Patient states he is only sleeping a few minutes at a time. He does not have much appetite. 02/02 : Patient is feeling weak today , somewhat forgetful, did receive one unit of PRBC, chest tubes were removed and he will be switched to Levemir 24 units sc qhs and Novolog 5 units AC meals plus SSI and he will comeoff insulin drip, he continues to have dysuria, has Hargrove catheter in place and we will continue to have chronic phimosis that will require surgery down the line. 02/04: Patient is resting recliner in the ICU. He states he slept a little bit last night but is consistently not getting much sleep. He states he feels less short of breath today. He is complaining of needing to void but he continues to have a Hargrove catheter in place. He has not had a bowel movement for the last 3- 4 days. Lactulose added. He also states that he continues to have decreased appetite which may improve after having a bowel movement. Patient is scheduled for external pacemaker today with Dr Scruggs. teletypesetter monitor is paced rhythm. He is currently on insulin 24 units of Levemir at bedtime along with 5 units of NovoLog with meals and NovoLog scale. Blood Glucose Running between 130 and 203. Repeat Blood Work Reveals WBC 6.2, Hemoglobin 7.8 up to 140. Sodium 130, Potassium 4.1, Chloride 102, CO2 20, BUN 27 Creatinine 1.15. Magnesium 2.6. Patient Received 1 Unit of Packed RBCs Yesterday. Tissue Culture Is Positive for Enterococcus Faecalis. Chest x-ray this morning reveals difficult to exclude pulmonary edema, pneumonia, atelectasis and possible associated effusion. Patient is reaching 1500 mL on incentive spirometry. 02/05: Patient states that he wishes that he felt better. He complains of hacking cough and wheezing and he had a nebulizer treatment a couple hours ago and states it did not help him. He also complains of not being able to sleep. He states he has not had a bowel movement despite multiple medications for bowel regime. Patient have a repeat Dulcolax suppository this morning and lactulose increased to 3 times daily. Hargrove catheter remains in place. Yesterday, patient underwent externalized temporary pacemaker implantation yesterday with Dr. 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 Patient will be able to be discharged with this device in place. Patient remains in the intensive care unit. He's been afebrile, heart rate in the 80s, blood pressure 129/74, pulse ox 98% on 2 L nasal cannula. Repeat blood work reveals WBC 4.9, hemoglobin 7.8, platelet count 153. Sodium 136 otherwise electrolytes and renal function are within normal limits. Calcium is 7.7. Capillary blood glucose running between 90-136. Repeat chest x-ray in pending. 02/06: Patient remains in the intensive care unit, he is seen today for resting in recliner. He continues to state that he is tired and not sleeping. He states he was able to walk around the unit yesterday and did well with physical therapy. Patient was evaluated by Dr. Morgan and appears to be a good candidate waiting for insurance approval. Patient did state he had a bowel movement after multiple medication regime. Hargrove was discontinued yesterday and he's been able to void. Patient does complain of shortness of breath order for Lasix 40 mg IV 1 today and will increase this to 40 mg IV twice daily. Patient has significant 3+ edema, significant edema in the scrotal/penis area. He is able t o void despite this edema. Patient states that he has not been eating well and continues to not have any appetite. Patient remains afebrile, heart rate in the 80s, blood pressure 132/86, pulse ox 94% on room air. Repeat blood work reveals WBC 5, hemoglobin 7, platelet count 181. Sodium 135 otherwise electrolytes and renal function are normal. Her blood glucose running between 158 and 221. Le vemir will be increased by 2 units. 02/07: Patient remains in the intensive care unit he has been afebrile, heart rate in the 80s, blood pressure 149/72, pulse ox 96% on room air. Repeat blood work reveals WBC 5.4, hemoglobin 7.3 and platelet count 207. Sodium 137, potassium 4.2, chloride 107, CO2 21, BUN 16 creatinine 0.96. Currently blood glucose running between 165 and 193. Repeat chest x-ray reveals cardiomegaly with bilateral infiltrate and pleural effusion stable correlate for mild venous congestion. Pulmonary medicine has suggested a transthoracic echocardiogram to evaluate the aortic valve function especially with his ongoing edema. Echocardiogram is being done today. Pacemaker has been turned down to 40 and patient is currently in first grade lock 70 bpm. Lasix has been increased by cardiology to 80 mg in the a.m. and 40 mg in the afternoon. 02/08: Patient remains in the intensive care unit. He states that he is finally feeling better because he slept for 5-6 hours last night. He continues to have significant edema especially concerning to him is the scrotal area. He has able to void on his own. Patient was started on Mucomyst yesterday. Echocardiogram from yesterday revealed Repeat chest x-ray reveals findings similar to prior exam, there may be basilar atelectasis difficult to exclude small effusion. Difficult to exclude mild interstitial edema. Cardiomegaly. Patient remains afebrile, heart rate in the 50s and 60s, blood pressure 99/56, pulse ox 97% on room air. teletypesetter monitor is sinus rhythm with a first-degree block Repeat blood work reveals WBC 5.5, hemoglobin 7.4, platelet count 213. Electrolytes and renal function are within normal limits. White blood glucose running between 128 and 260. Patient is reaching 1250 on incentive spirometry. 02/09/2022 Patient is currently in the MICU. Lying in the bed. On room air. Awake alert and oriented x3. Patient does have cough and congestion. Also having significant bilateral lower extremity edema and scrotal edema. Chest x-ray showed expiratory exam, difficult to exclude interstitial edema, basal atelectasis versus pneumonia. Patient is being current on Lasix 40 mg every 24 hours and also on Zaroxolyn 2.5 mg twice daily. No complaints of chest pain. No headache or dizziness or lightheadedness. Laboratory data showed WBC 5.4 hemoglobin 7.6 and platelets 217 Sodium 138 potassium 4.1 chloride 108 BUN 13 and creatinine 1.01 and blood sugar is 123 this morning 02/10/2022 Patient is currently in the intensive care unit. Patient is able to sit in the recliner and did not take few steps this morning. Still having bilateral lower extremity edema and scrotal swelling. Currently on IV Lasix 80 mg daily. Also on Zaroxolyn. Chest x-ray today showed improved aeration. Currently on room air. Laboratory data showed WBC 4.9 hemoglobin 7.3 and platelets 215 Sodium 136 potassium 4.2 chloride 103 bicarb is 27 BUN 12 and creatinine 0.97 and calcium 7.8 and blood sugar is 132 this morning. Patient is on antibiotics in the form of ampicillin And Rocephin secondary to Enterococcus faecalis bacteremia secondary to bioprosthetic aortic valve endocarditis.. Patient denies any complaints of chest pain. No worsening shortness breath. No nausea vomiting abdominal pain or diarrhea. Patient does have a congested cough. No sputum production. No fever no chills. Current medications reviewed. REVIEW OF SYSTEMS Constitutional: No fever, no chills, no night sweats. No weight change. No weakness, denies fatigue no lethargy. Reports daytime sleepiness. EENT: No headache. No blurred vision or double vision, no loss of vision. No loss of Hearing, no ringing in the ears, no dizziness. No nasal drainage or congestion. No epistaxis. No sore throat. Lungs: Reports mild shortness of breath improving, reports cough, no sputum production. Reports wheezing. Cardiovascular: Reports chest discomfort, positive edema 3+. No palpitations. No paroxysmal nocturnal dyspnea. No orthopnea. No lightheadedness or dizziness. No syncopal episodes. Abdominal: No abdominal pain. No nausea, vomiting. No diarrhea. No constipation. No bloody or tarry stools. Reports loss of appetite. Genitourinary: No dysuria, increased frequency, urgency. No urinary retention- Hargrove catheter in place. Musculoskeletal: No myalgias. No muscle weakness, no gait dysfunction, no frequent falls. No back pain. No neck pain. Integumentary: No wounds, no lesions. No rash or pruritus. No unusual bruising. Neurologic: No aphasia. No facial droop. No change in mentation. No head injury. No headache. No paralysis. No paresthesia. Psychiatric: No depression. No anxiety. No mood swings. Reports insomnia Endocrine: Noted abnormal blood sugars. No weight change. No excessive sweating or thirst. No cold intolerance. PHYSICAL EXAMINATION Gen: This is a 76-year-old male. He is resting in ICU recliner and appears to be in no acute distress. HEENT: Head is atraumatic, normocephalic. Pupils equal, round. Sclerae is anicteric. NECK: Supple. No JVD. No lymphadenopathy. No thyromegaly. LUNGS: Decrease breath sounds at the bases No wheezes or rhonchi, sternotomy site is covered with dressing HEART: First heart sound is depressed, second heart sound is normal, aortic valve click, systolic ejection murmur 2/6 at the left sternal border. teletypesetter monitor is paced rhythm. External pacemaker on the right anterior chest wall covered with dressing. ABDOMEN: Soft. Bowel sounds are present. No masses. No tenderness. Positive edema to the abdomen and back, positive scrotal and penile edema. EXTREMITIES: Bilateral pedal edema 3+. No calf tenderness. Dorsalis pedis +2 bilaterally. Bilateral hand edema. NEUROLOGICAL: Patient is awake, alert and oriented x3. Cranial nerves 2 through 12 are grossly intact. Muscle power 4 out of 5 upper and lower extremities bilaterally. ASSESSMENT AND PLAN 1. 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 Patient is continued on IV Lasix 80 mg daily and Zaroxolyn BID. 2. Third degree AV block. has a temporary Pacemaker and is status post external temporary pacemaker 02/04. 3. Enterococcus Feacalis Endocarditis and bacteremia. we will continue with Rocephin 2 gr IVPB Q 12 hours and Ampicillin 2 gr IVPB Q 6 hours, ID team is following. 4. Hypertension with hypertensive cardiovascular disease. Continue patient on Hydralazine 50 mg po bid and Cardura 8 mg po bid, losartan 100 mg daily. 5. Hyperlipidemia. Continue atorvastatin 40 mg at bedtime. 6. Diabetes mellitus type 2. Continue patient on Levemir 26 units Sc qhs , Novolog 5 units AC meals tid along with SSI. 7. Benign prostatic hypertrophy. Continue Flomax 0.4 mg daily, continue finasteride 5 mg daily 8. 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 Continue patient on Symbicort 160- 4.5 g 2 puffs twice daily, Mucomyst 200 mg 4 times daily per nebulizer, albuterol nebulizer every 4 hours as needed for shortness of breath, reviewed bedside spirometery with FEV1 38 % of predicted. 9. ALLERGIC rhinitis. Continue Singulair 10 mg at bedtime. 10. Chronic gout. Continue allopurinol 100 mg daily. 11. DVT prophylaxis. Heparin 5000 units subcu every 8 hours. 12. GI prophylaxis. Protonix 40 mg daily. 13. Acute blood loss Anemia, expected with surgery S/P 3 units of PRBCs. 14. Fluid overload secondary to IV fluids, surgical intervention. Patient is continued on Lasix 80 mg in the morning 40 mg in the afternoon. Repeat echocardiogram as above. 15. Medical debility.He will require inpatient rehab. CODE STATUS: Full code. Objective - Vital Signs Vital signs: Vital Signs Temp 98.7 F 02/10/22 16:00 Pulse 68 02/10/22 16:37 Resp 16 02/10/22 16:00 BP 167/77 02/10/22 16:00 Pulse Ox 94 L 02/10/22 16:00 FiO2 50 02/08/22 10:00 Intake & Output 02/09/22 02/10/22 02/10/22 18:59 06:59 18:59 Intake Total 520 600 100 Output Total 1700 1125 810 Balance -1180 -525 -710 Weight 112.7 kg Intake: IV 270 400 100 Ampicillin 2,000 mg In 200 300 Sodium Chloride 0.9% 100 ml @ 200 mls/hr IVPB Q4HR [facility] Rx#:[id number] Sodium Chloride 0.9% 1, 20 50 100 000 ml @ 20 mls/hr IV . Q24H [facility] Rx#:[id number] cefTRIAXone 2 gm In 50 50 Sodium Chloride 0.9% 50 ml @ 100 mls/hr IVPB Q12HR [facility] Rx#:[id number] Oral 250 200 Output: Urine 1700 1125 810 Other: Voiding Method Bedside Commode Bedside Commode Bedside Commode Urinal Urinal Urinal # Voids 1 1 # Bowel Movements 1 1 1 ABP, PAP, CO, CI - Last Documented Arterial Blood Pressure 167/54 Pulmonary Artery Pressure 36/15 Cardiac Output 5.5 Cardiac Index 2.5 - Labs CBC & Chem 7: 02/10/22 04:44 02/10/22 04:44 Labs: Abnormal Lab Results - Last 24 Hours (Table) 02/09/22 02/10/22 02/10/22 Range/Units 20:13 04:44 04:44 RBC 2.29 L (4.30-5.90) m/uL Hgb 7.3 L (13.0-17.5) gm/dL Hct 22.5 L (39.0-53.0) % RDW 17.0 H (11.5-15.5) % Sodium 136 L (137-145) mmol/L POC Glucose (mg/dL) 165 H (70-110) mg/dL Calcium 7.8 L (8.4-10.2) mg/dL 02/10/22 02/10/22 02/10/22 Range/Units 06:24 11:19 16:16 RBC (4.30-5.90) m/uL Hgb (13.0-17.5) gm/dL Hct (39.0-53.0) % RDW (11.5-15.5) % Sodium (137-145) mmol/L POC Glucose (mg/dL) 132 H 116 H 157 H (70-110) mg/dL Calcium (8.4-10.2) mg/dL
[2022-02-11] MEDS: AMPICILLIN 2,000 MG in SODIUM CHLORIDE 0.9% 100 ML IVPB SCH ×4 (04:09→15:29)
[2022-02-11] MEDS: ACETAMINOPHEN TAB 500 MG TAB PO PRN (04:13)
[2022-02-11 06:33] LABS: Glucose,Whole Blood 123 mg/dL (70-110)
[2022-02-11] MEDS: INSULIN ASPART (NovoLOG) 100 UNIT/ML VIAL SQ SCH ×4 (07:02→12:14)
[2022-02-11] MEDS: FERROUS SULFATE 325 MG TAB PO SCH (07:05)
[2022-02-11] MEDS: ASCORBIC ACID 500 MG TAB PO SCH (07:05)
[2022-02-11] MEDS: PANTOPRAZOLE 40 MG TABLET PO SCH (07:05)
[2022-02-11] MEDS: IPRATROPIUM-ALBUTEROL 3 ML NEB INHALATION SCH ×3 (07:25→15:24)
[2022-02-11] MEDS: SYMBICORT 160-4.5 MCG INHALER INHALATION SCH (07:25)
[2022-02-11] MEDS: ACETYLCYSTEINE 800 MG/4 ML VIAL INHALATION SCH (07:26)
[2022-02-11 07:33] LABS: Anisocytosis Slight; HCT 24.9 % (39.0-53.0); HGB 7.6 gm/dL (13.0-17.5); Hypochromasia Marked; MCH 30.3 pg (25.0-35.0); MCHC 30.6 g/dL (31.0-37.0); MCV 99.2 fL (80.0-100.0); Macrocytosis Slight; Mean Platelet Volume 8.5; Platelet Count 236 k/uL (150-450); Poikilocytosis Moderate; RBC 2.51 m/uL (4.30-5.90); WBC 5.3 k/uL (3.8-10.6)
[2022-02-11 07:42] LABS: Calcium 8.3 mg/dL (8.4-10.2); Potassium 4.5 mmol/L (3.5-5.1)
--- NOTE | 2022-02-11 07:42 | P.PN ---
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 History of severe aortic valve stenosis status post aortic valve replacement with a 23 mm Inspiris bioprosthetic aortic valve in November 2017, CAD with mid RCA stenosis 50% and previous PCI in 2018, hypertension, hyperlipidemia, insulin-dependent diabetes mellitus type 2, obesity, obstructive sleep apnea without CPAP use, moderate COPD, asthma, previous tobacco dependence, benign prostatic hypertrophy, UTIs with pseudomonas in 01/2020, gout, bilateral internal carotid stenosis 50-70% POD #11 redo sternotomy, excision of the previous 23 mm Inspiris pericardial bioprosthesis and debridement of the annulus, aortic valve replacement using a 21 mm Inspiris pericardial bioprosthesis Postoperative acute blood loss anemia, expected given hemodilution and cardiopulmonary bypass pump POD #7 externalized pacemaker implant via right axillary vein by Dr. Scruggs The patient was seen and examined sitting up in a recliner in the intensive care unit in no acute distress. Remains in sinus rhythm with a first-degree AV block with rare occasional pacemaker spikes, hemodynamically stable with externalized pacemaker present. He denies pain or shortness of breath. Has ambulated all the way around the hallway, has been showering daily. Anticipate discharge to inpatient rehab soon for strength training with physician monitoring for daily recommendations regarding rehabilitation needs. No other new concerns. Objective - Vital Signs Vital signs: Vital Signs Temp 98.6 F 02/11/22 04:00 Pulse 73 02/11/22 07:00 Resp 29 H 02/11/22 07:00 BP 132/107 02/11/22 07:00 Pulse Ox 94 L 02/11/22 07:00 FiO2 50 02/08/22 10:00 Intake & Output 02/10/22 02/11/22 02/11/22 18:59 06:59 18:59 Intake Total 130 420 10 Output Total 1820 1200 Balance -1690 -780 10 Weight 112.7 kg 107.6 kg Intake: IV 130 420 10 Ampicillin 2,000 mg In 300 Sodium Chloride 0.9% 100 ml @ 200 mls/hr IVPB Q4HR [facility] Rx#:[id number] Sodium Chloride 0.9% 1, 130 70 10 000 ml @ 20 mls/hr IV . Q24H [facility] Rx#:[id number] cefTRIAXone 2 gm In 50 Sodium Chloride 0.9% 50 ml @ 100 mls/hr IVPB Q12HR [facility] Rx#:[id number] Output: Urine 1820 1200 Other: Voiding Method Bedside Commode Bedside Commode Urinal Urinal # Voids 1 # Bowel Movements 1 ABP, PAP, CO, CI - Last Documented Arterial Blood Pressure 167/54 Pulmonary Artery Pressure 36/15 Cardiac Output 5.5 Cardiac Index 2.5 - Exam CONSTITUTIONAL: Appears comfortable, cooperative, no acute distress RESPIRATORY: Lungs sounds diminished bilaterally. Respirations even, nonlabored. Currently on room air with oxygen saturation 93%. Able to achieve 1750 mL on incentive spirometry. Strong cough. CARDIOVASCULAR: S1, S2 present. Regular rate and rhythm, sinus rhythm with first-degree AV block on telemetry. Sternum stable. Palpable peripheral pulses bilaterally. 1+ generalized edema present, scrotal edema present. No calf pain or tenderness noted. Heart hugger in place with patient demonstrating appropriate use. Antiembolism stockings, SCDs present. GASTROINTESTINAL: Abdomen soft, nontender, nondistended. Active bowel sounds present 4 quadrants. Tolerating diet. Positive bowel movement GENITOURINARY: Continues to void clear, yellow urine. Output 2745 mL in the last 24 hours INTEGUMENTARY: Skin is warm and dry with evidence of good perfusion. Anterior chest incision well approximated. Right anterior chest pacemaker insertion site covered with dry intact dressing NEUROLOGIC: Cranial nerves II through XII intact MUSKULOSKELETAL: Able to move all extremities, strength equal bilaterally PSYCHIATRIC: Alert and oriented to person place and time, flat affect, intact judgment and insight INVASIVE LINES AND TUBES: External pacemaker present, dressing dry and intact. - Allied health notes Allied health notes reviewed: nursing - Labs CBC & Chem 7: 02/11/22 07:07 02/11/22 07:07 Labs: Abnormal Lab Results - Last 24 Hours (Table) 02/10/22 02/10/22 02/10/22 Range/Units 11:19 16:16 20:03 POC Glucose (mg/dL) 116 H 157 H 196 H (70-110) mg/dL 02/11/22 Range/Units 06:31 POC Glucose (mg/dL) 123 H (70-110) mg/dL - Imaging and Cardiology Chest x-ray: image reviewed Assessment and Plan Assessment: 1. Prosthetic aortic valve endocarditis with third degree atrioventricular h eart block, status post redo sternotomy, excision of the previous 23 mm Inspiris pericardial bioprosthesis and debridement of the annulus, aortic valve replacement using a 21 mm Inspiris pericardial bioprosthesis, status post externalized pacemaker implant via right axillary vein 2. Bacteremia with enterococcus faecalis, blood cultures currently negative 3. Moderate mitral valve regurgitation 4. Altered mental status present on admission, resolved 5. History of severe aortic valve stenosis status post aortic valve replacement with a 23 mm Inspiris bioprosthetic aortic valve in November 2017 6. CAD with mid RCA stenosis 50% and previous PCI in 2018 7. Hypertension 8. Hyperlipidemia, treated, cholesterol 86, LDL 39 9. Insulin-dependent diabetes mellitus type 2, preoperative hemoglobin A1c 7.8% 10. Obesity 11. Obstructive sleep apnea without CPAP use 12. Moderate COPD, FEV1 59% of predicted 13. Asthma 14. Previous tobacco dependence 15. Benign prostatic hypertrophy, currently on Flomax, Cardura, Proscar 16. UTIs with pseudomonas in 01/2020 17. Gout 18. Bilateral internal carotid stenosis 50-70% 19. Postoperative acute blood loss anemia, expected given hemodilution and cardiopulmonary bypass pump 20. Medical debility Plan: 1. Continue to maximize medical therapy with aspirin, statin, cozaar. Continue to hold beta erasto, contraindicated due to AV block 2. Encourage use of his incentive spirometry 10 times every hour while awake. Bronchodilators per pulmonology 3. Increase activity, ambulate as tolerated. PT/OT/cardiac rehab following. Patient needs lots of encouragement. Patient may not lift his right arm above the level of his heart due to pacemaker 4. Will monitor daily labs and x-rays. Electrolyte replacement per protocol. Continue Lasix as well as Zaroxolyn twice a day, will transition to oral upon discharge to [facility] 5. Continue ampicillin and Rocephin per infectious disease recommendations. To complete 6 weeks post surgery of antibiotics per Dr. Cunningham 6. GI and DVT prophylaxis 7. Pain control current medication regimen. 8. Insulin management per primary care service 9. Dressing over the externalized pacemaker to be changed by Dr. Kael matute 10. Continue to shower daily 11. Strict accurate intake and output. Daily weights 13. Discharge planning in progress, anticipate discharge to [facility] inpatient rehab today; covid test ordered 14. More recommendations as patient progresses
[2022-02-11] MEDS: metOLazone 2.5 MG TAB PO SCH (08:12)
[2022-02-11] MEDS: HEPARIN SODIUM,PORCINE/PF 5,000 UNIT/0.5 ML SYRINGE SQ SCH (08:12)
[2022-02-11] MEDS: FUROSEMIDE 10 MG/ML 4 ML VIAL IV SCH ×2 (09:06→09:15)
--- NOTE | 2022-02-11 09:12 | P.PN ---
Subjective Progress Note Date: 02/11/22 Patient is seen resting comfortably in the chair today in the ICU doing well. He is postop day 11. He continues to be sinus rhythm with a first-degree with a controlled heart rate in the 60s to 70s. With occasional paced beats on telemetry. Last night while asleep he did bradycardia down and required pacing. Plan is for patient to go to inpatient rehab today. Vital signs are stable. His limited echo showed a normal functioning prosthetic aortic valve. If patient continues to maintain his own rhythm, possible external pacemaker removal in 2 weeks. Patient is cleared for inpatient rehab from a cardiac standpoint Objective - Vital Signs Vital signs: Vital Signs Temp 98.6 F 02/11/22 04:00 Pulse 75 02/11/22 07:42 Resp 29 H 02/11/22 07:00 BP 132/107 02/11/22 07:00 Pulse Ox 94 L 02/11/22 07:29 FiO2 50 02/08/22 10:00 Intake & Output 02/10/22 02/11/22 02/11/22 18:59 06:59 18:59 Intake Total 130 420 10 Output Total 1820 1200 Balance -1690 -780 10 Weight 112.7 kg 107.6 kg Intake: IV 130 420 10 Ampicillin 2,000 mg In 300 Sodium Chloride 0.9% 100 ml @ 200 mls/hr IVPB Q4HR [facility] Rx#:[id number] Sodium Chloride 0.9% 1, 130 70 10 000 ml @ 20 mls/hr IV . Q24H [facility] Rx#:[id number] cefTRIAXone 2 gm In 50 Sodium Chloride 0.9% 50 ml @ 100 mls/hr IVPB Q12HR [facility] Rx#:[id number] Output: Urine 1820 1200 Other: Voiding Method Bedside Commode Bedside Commode Urinal Urinal # Voids 1 # Bowel Movements 1 ABP, PAP, CO, CI - Last Documented Arterial Blood Pressure 167/54 Pulmonary Artery Pressure 36/15 Cardiac Output 5.5 Cardiac Index 2.5 - Exam PHYSICAL EXAM: VITAL SIGNS: Reviewed. GENERAL: Well-developed in no acute distress. HEENT: Head is normocephalic. Pupils are equal, round. Sclerae anicteric. Mucous membranes of the mouth are moist. NECK: Supple. No JVD or thyromegaly RESPIRATORY: Respirations even and unlabored. Lungs diminished to auscultation bilaterally. CARDIO: Regular rate and rhythm. S1 and S2 heard. External pacer in place EXTREMITIES: Normal range of motion. No clubbing or cyanosis. Peripheral pulses intact. Negative for bilateral lower extremity edema NEURO: Orientated to person, time, mood is appropriate - Labs CBC & Chem 7: 02/11/22 07:07 02/11/22 07:07 Labs: Abnormal Lab Results - Last 24 Hours (Table) 02/10/22 02/10/22 02/10/22 Range/Units 11:19 16:16 20:03 RBC (4.30-5.90) m/uL Hgb (13.0-17.5) gm/dL Hct (39.0-53.0) % MCHC (31.0-37.0) g/dL RDW (11.5-15.5) % Sodium (137-145) mmol/L Glucose (74-99) mg/dL POC Glucose (mg/dL) 116 H 157 H 196 H (70-110) mg/dL Calcium (8.4-10.2) mg/dL 02/11/22 02/11/22 02/11/22 Range/Units 06:31 07:07 07:07 RBC 2.51 L (4.30-5.90) m/uL Hgb 7.6 L (13.0-17.5) gm/dL Hct 24.9 L (39.0-53.0) % MCHC 30.6 L (31.0-37.0) g/dL RDW 18.0 H (11.5-15.5) % Sodium 136 L (137-145) mmol/L Glucose 101 H (74-99) mg/dL POC Glucose (mg/dL) 123 H (70-110) mg/dL Calcium 8.3 L (8.4-10.2) mg/dL Assessment and Plan Assessment: Infective endocarditis, requiring redo of aortic valve replacement Advanced heart block, status post external pacemaker implantation Plan: Continue with all current cardiac medications Continue with telemetry monitoring Patient is stable to be discharged to inpatient rehab today Further recommendations based on clinical course The above impression and plan of care have been discussed and directed by the signing physician. Mirna Whiteside, nurse practitioner, acting as scribe for signing physician.
[2022-02-11] MEDS: MONTELUKAST 10 MG TAB PO SCH (09:15)
[2022-02-11] MEDS: guaiFENesin 600 MG TABLET.ER PO SCH (09:15)
[2022-02-11] MEDS: ASPIRIN 325 MG TAB PO SCH (09:15)
[2022-02-11] MEDS: allopurinoL 100 MG TAB PO SCH (09:15)
[2022-02-11] MEDS: TAMSULOSIN 0.4 MG CAP.ER.24H PO SCH (09:15)
[2022-02-11] MEDS: ATORVASTATIN 40 MG TAB PO SCH (09:15)
[2022-02-11] MEDS: LOSARTAN 50 MG TAB PO SCH (09:15)
[2022-02-11] MEDS: SERTRALINE 50 MG TAB PO SCH (09:16)
[2022-02-11] MEDS: DOXAZOSIN 4 MG TAB PO SCH (09:16)
[2022-02-11] MEDS: FINASTERIDE 5 MG TAB PO SCH (09:17)
[2022-02-11] MEDS: CLOTRIMAZOLE 1% CREAM 30 GM TUBE TOPICAL SCH (09:17)
--- NOTE | 2022-02-11 10:37 | P.PN ---
Subjective Progress Note Date: 02/11/22 Principal diagnosis: Acute aortic prosthetic valve endocarditis, status post aortic valve replacement postoperative day #11 This is a 76-year-old white male with history of multiple medical problems including hypertension, diabetes with diabetic polyneuropathy, dyslipidemia, history of COPD and he normally sees Dr. Ferreira for his COPD. Patient is also known to have history of obstructive sleep apnea syndrome, and melanoma resected from the back previously. Patient was admitted to [facility] back on 01/20/22, he was basically admitted with mental status change, or, and tachycardia. Patient had a previous history of aortic valve replacement in 2018, and patient was noted to have positive blood cultures for enterococcus faecalis. Continued to have positive blood cultures, he was seen by cardiology, and on 01/22, the patient underwent REESE which clearly confirmed vegetations on the aortic valve. It was reported as a small aortic valve vegetation present on a bioprosthetic aortic valve. His REESE also showed moderate mitral regurgitation and moderate tricuspid regurgitation. Patient was seen by infectious disease, started on broad-spectrum antibiotics, and no major arrhythmias noted until today. On telemetry monitoring, the patient was noted to have high grade AV block's with some bradycardia. He was also noted to have progression of his AV block's, and PVCs consistent with extension of the infection into the septal myocardium. Hence arrangements were made to transfer the patient to [facility] to be seen by the cardiothoracic surgical team. In the meantime the patient has been on Rocephin and ampicillin and vancomycin. Again infectious disease service is addressing the antibiotics accordingly. I saw the patient upon arrival to the ICU, he seems to be fairly comfortable, not in any distress, and hemodynamically stable. Patient is noted to have intermittently high-grade AV blocks, and cardiology will be evaluating the patient while in the ICU shortly. Cardiac consultation is pending. Labs were reviewed WBC count is 9.7 hemoglobin is 11.7 a left was are normal renal profile is normal, urinalysis is unremarkable. On 02/10/2022 the patient is being seen in follow-up in the intensive care unit. He is doing well. He is diuresing. Lower extremity edema and scrotal edema is also improving. Note that the patient is postoperative day #10. He is on Lasix 100 mg IV every 24 hours and is also Zaroxolyn at a dose of 2.5 mg by mouth twice a day. Urine output is excellent patient remains in a negative fluid balance. Chest x-ray still showing some interstitial edema and small left-sided pleural effusion. The patient's cardiac rhythm remained sinus. Normal cardiac issues. Surgical incisions are clean and intact. Limited echocardiogram showed a normal function of the prosthetic aortic valve. The patient is improving in terms of his intrinsic rhythm and he is rarely requiring his transvenous pacem gin is on ongoing cardiac monitoring. He is on no beta blockers for now. He remains on a combination of IV ampicillin and Rocephin. No nausea. No vomiting. No emesis. The hemoglobin is at 7.3 otherwise, the 4.5. Electrolytes are all within normal limits. No altered mentation. On 02/11/2022, patient remains in the ICU, remains on IV antibiotics including Rocephin and ampicillin patient is now postoperative day #11 redo sternotomy, excision of previous 23 mm Inspiris pericardial bioprosthesis and debridement of the annulus, aortic valve replacement using a 21 mm Inspiris pericardial bi oprosthesis, patient is postoperative day #7 external pacemaker implant via right axillary vein. Patient is doing well, relatively asymptomatic today, WBC count is 5.3 hemoglobin is 7.6 electrodes are normal renal profile is normal, patient is being considered for discharge to inpatient rehab. Patient is doing well with incentive spirometry, chest x-ray is reassuring, minimal basilar atelectasis is noted. Objective - Vital Signs Vital signs: Vital Signs Temp 98.2 F 02/11/22 08:00 Pulse 68 02/11/22 10:00 Resp 22 02/11/22 10:00 BP 155/65 02/11/22 10:00 Pulse Ox 93 L 02/11/22 10:00 FiO2 50 02/08/22 10:00 Intake & Output 02/10/22 02/11/22 02/11/22 18:59 06:59 18:59 Intake Total 130 420 40 Output Total 1820 1200 500 Balance -7215 -889 -359 Weight 112.7 kg 107.6 kg 107.6 kg Intake: IV 130 420 40 Ampicillin 2,000 mg In 300 Sodium Chloride 0.9% 100 ml @ 200 mls/hr IVPB Q4HR [facility] Rx#:[id number] Sodium Chloride 0.9% 1, 130 70 40 000 ml @ 20 mls/hr IV . Q24H [facility] Rx#:[id number] cefTRIAXone 2 gm In 50 Sodium Chloride 0.9% 50 ml @ 100 mls/hr IVPB Q12HR [facility] Rx#:[id number] Output: Urine 1820 1200 500 Other: Voiding Method Bedside Commode Bedside Commode Urinal Urinal # Voids 1 # Bowel Movements 1 ABP, PAP, CO, CI - Last Documented Arterial Blood Pressure 167/54 Pulmonary Artery Pressure 36/15 Cardiac Output 5.5 Cardiac Index 2.5 - Exam Physical Exam: Revealed a 76-year-old white male in no distress, on room air. Head: Atraumatic, normocephalic. HEENT:[Neck is supple.] [No neck masses.] [No thyromegaly.] [No JVD.] Chest: [Clear throughout, no crackles, no rhonchi, no wheezes.] Cardiac Exam: Distant S1 and S2, positive aortic valve click, and systolic ejection murmur best heard over the aortic area Abdomen: [Obese, Soft, nontender, no megaly, no rebound, no guarding, normal bowel sounds.] Extremities: [No clubbing, no edema, no cyanosis.] Good pulses bilaterally Neurological Exam: Alert and oriented 3. [No focal neurologic deficit.] Psychiatric: Normal mood affect and normal mental status examination. Skin no rashes and no petechiae - Labs CBC & Chem 7: 02/11/22 07:07 02/11/22 07:07 Labs: Abnormal Lab Results - Last 24 Hours (Table) 02/10/22 02/10/22 02/10/22 Range/Units 11:19 16:16 20:03 RBC (4.30-5.90) m/uL Hgb (13.0-17.5) gm/dL Hct (39.0-53.0) % MCHC (31.0-37.0) g/dL RDW (11.5-15.5) % Sodium (137-145) mmol/L Glucose (74-99) mg/dL POC Glucose (mg/dL) 116 H 157 H 196 H (70-110) mg/dL Calcium (8.4-10.2) mg/dL 02/11/22 02/11/22 02/11/22 Range/Units 06:31 07:07 07:07 RBC 2.51 L (4.30-5.90) m/uL Hgb 7.6 L (13.0-17.5) gm/dL Hct 24.9 L (39.0-53.0) % MCHC 30.6 L (31.0-37.0) g/dL RDW 18.0 H (11.5-15.5) % Sodium 136 L (137-145) mmol/L Glucose 101 H (74-99) mg/dL POC Glucose (mg/dL) 123 H (70-110) mg/dL Calcium 8.3 L (8.4-10.2) mg/dL Assessment and Plan Assessment: Impression Status post redo sternotomy, excision of previous aortic bioprosthetic valve and debridement of the annulus, aortic valve replacement using pericardial bioprosthesis aortic valve and status post external pacemaker implant Acute endocarditis of aortic prosthetic aortic valve History of severe aortic stenosis and previous aortic valve surgery in November of 2017 Coronary artery disease with mid RCA stenosis of 50% previous PCI in 2018 Benign essential hypertension Type 2 diabetes Obstructive sleep apnea syndrome, not using CPAP Moderate severe COPD FEV1 of 59% Ex-smoker. Postoperative acute blood loss anemia expected. Bilateral carotid artery stenosis 50-70 Recommendation: Continue maximal medical therapy including statin, aspirin, Cozaar, avoid beta blockers since the patient had history of AV block. Continue incentive spirometry Continue ampicillin and Rocephin patient may have to finish 6 weeks post surgery of antibiotics. Continue GI and DVT prophylaxis Continue pain control Continue insulin as per protocol Discharge planning is in progress to inpatient rehab. We will continue to follow Time with Patient: Less than 30
--- NOTE | 2022-02-11 11:29 | P.DS ---
Providers Date of admission: 01/24/22 12:10 Expected date of discharge: 02/11/22 Attending physician: Yamileth Lopez Consults: 01/24/22 12:34 Consult Physician Routine Consulting Provider: Abril Farris Consult Reason/Comments: icu management Do you want consulting provider notified?: Yes Placement Type Exists?: Yes 01/24/22 12:38 Consult Physician Routine Consulting Provider: Rolf Cunningham Consult Reason/Comments: vegetation on valve Do you want consulting provider notified?: Yes 01/24/22 13:13 Consult Physician Routine Consulting Provider: Omi Molina Consult Reason/Comments: vegetation on valvle Do you want consulting provider notified?: Yes 01/24/22 13:28 Consult Physician Routine Consulting Provider: Cheri Cárdenas Consult Reason/Comments: vegetation on valve Do you want consulting provider notified?: Yes 01/24/22 16:14 Consult Physician Routine Consulting Provider: Ronel Gonzalez Consult Reason/Comments: pre op clearance aortic valve vegetation Do you want consulting provider notified?: Yes, Notify in am 01/29/22 10:57 Consult Physician Routine Consulting Provider: Eddie Farooq Consult Reason/Comments: Recurrent urinary tract infections, urinary retention Do you want consulting provider notified?: Yes Consult to Anesthesia Routine Consulting Provider: Anesthesia,Services Consult Reason/Comments: Cardiac Surgery Pre-Op 01/31/22 14:36 Consult Physician Routine Consulting Provider: Jose Raul Parish Consult Reason/Comments: med management Do you want consulting provider notified?: Already Contacted 02/05/22 13:43 Consult Physician Routine Consulting Provider: Anthony Morgan Consult Reason/Comments: IPR at discharge Do you want consulting provider notified?: Yes Primary care physician: Jose Raul Parish Hospital Course: FINAL DIAGNOSIS: 1. 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 Bacteremia with enterococcus faecalis, blood cultures currently negative 3. Moderate mitral valve regurgitation 4. Altered mental status present on admission, resolved 5. History of severe aortic valve stenosis status post AVR in November 2017 6. CAD with mid RCA stenosis 50% and previous PCI in 2018 7. Hypertension 8. Hyperlipidemia, treated, cholesterol 86, LDL 39 9. Insulin-dependent diabetes mellitus type 2, preoperative hemoglobin A1c 7.8% 10. Obesity 11. Obstructive sleep apnea without CPAP use 12. Moderate COPD, FEV1 59% of predicted 13. Asthma 14. Previous tobacco dependence 15. BPH, currently on Flomax/Cardura/Proscar 16. Previous UTIs including with Pseudomonas in 01/2020 17. Gout 18. Bilateral internal carotid stenosis 50-70% 19. Postoperative acute blood loss anemia, expected 20. Medical debility PRINCIPAL PROCEDURE: 1. Redo sternotomy, excision of the previous 23 mm Inspiris pericardial bioprosthesis and debridement of the annulus 2. Aortic valve replacement using a 21 mm Inspiris pericardial bioprosthesis 3. Externalized pacemaker implant via right axillary vein by Dr. Scruggs HISTORY OF PRESENT ILLNESS: This is a 76-year-old gentleman who follows on an outpatient basis with Dr. Parish for primary care and Dr. Cárdenas for cardiology. He presented to [facility] on 01/17/2022 with disorientation and mental status changes. During the patient's stay he had multiple CT scans demonstrating no acute infarct or bleed of the brain, cardiomegaly, bilateral pleural effusions. 12-lead EKG was completed demonstrating normal sinus rhythm with first-degree AV block. As part of his workup blood cultures were completed and were positive for Enterococcus faecalis, he was started on IV ampicillin and Rocephin. Due to his history of aortic valve replacement along with current positive blood cultures a transthoracic echocardiogram was completed demonstrating normal prosthetic aortic valve gradient, no aortic valve regurgitation nor stenosis, mild to moderate mitral valve regurgitation, mild tricuspid valve regurgitation, and normal left ventricular systolic function with EF 55%. Subsequently the patient underwent a transesophageal echocardiogram which confirmed normal left ventricular systolic function, but a small aortic valve vegetation was present measuring 0.53 cm. In addition he developed junctional rhythm and there was concern for aortic root abscess. The patient was transferred to [facility] for cardiothoracic surgery consultation. He did undergo temporary pacemaker placement by Dr. Cárdenas. He was initially seen by Dr. Molina, subsequently he underwent preoperative workup for surgery, he was then seen by Dr. Lopez once all preoperative workup was completed and the patient had obtained dental clearance. He was recommended to undergo redo sternotomy with excision of the previous valve followed by aortic valve replacement. The usual perioperative course was discussed in detail with the patient and his family, all risks and benefits were explained, all questions were answered, and consent was obtained to proceed with surgery. The patient was kept inpatient due to the nature of his disease process, and remained in the intensive care unit with a transvenous pacemaker in place. HOSPITAL COURSE: The patient was brought to the preoperative area 01/31/22, prepared in the usual fashion, and subsequently taken to the operating room where Dr. Lopez performed a redo sternotomy, excision of the previous valve, followed by aortic valve replacement. Upon completion of surgery the patient was transferred to the cardiovascular intensive care unit where he was recovered and monitored hemodynamically. He was extubated, all lines, tubes, and drips were discontinued when appropriate. He continued on IV antibiotics per infectious disease with clearance of his blood cultures. An externalized pacemaker was implanted by Dr. Scruggs with plans for removal after completion of antibiotics. His oxygen was titrated down, he continued to work with physical and occupational therapy, he was tolerating oral diet, his pain was controlled, and he was ready to be discharged to [facility] inpatient rehab on postoperative day #11. He received written and verbal instruction regarding his medications, activity restrictions, signs and symptoms requiring physician notification, and follow-up appointments. The patient was to be discharged on IV ampicillin and ceftriaxone per Dr. Cunningham's recommendations. Planning for potential permanent pacemaker if needed per Dr. Scruggs's recommendations. Patient Condition at Discharge: Stable Plan - Discharge Summary Discharge Rx Participant: No New Discharge Prescriptions: New Lactulose [Cephulac] 20 gm PO TID PRN ml PRN Reason: Constipation Ferrous Sulfate [Iron (65 MG Elemental)] 325 mg PO BID-W/MEALS tab Pantoprazole [Protonix] 40 mg PO AC-BRKFST tab Sennosides-Docusate Sodium [Senokot-S] 2 each PO HS tab Ascorbic Acid [Vitamin C] 500 mg PO BID-W/MEALS tab Sertraline [Zoloft] 50 mg PO DAILY tab Ampicillin Sodium 2 gm IVPB Q4HR 31 Days each Benzocaine/Menthol Lozeng [Cepacol lozenge] 1 each MUCOUS MEM Q2H PRN lozenge PRN Reason: Sore Throat Ipratropium-Albuterol Nebulize [Duoneb 0.5 mg-3 mg/3 ml Soln] 3 ml INHALATION RT-QID each Ipratropium-Albuterol Nebulize [Duoneb 0.5 mg-3 mg/3 ml Soln] 3 ml INHALATION RT-Q2H PRN each PRN Reason: Shortness Of Breath Or Wheezing Fluticasone Nasal [place] [Flonase Nasal [place]] 2 spray EA NOSTRIL DAILY PRN ml PRN Reason: Allergy Symptoms Insulin Detemir (Levemir) [Levemir] 26 unit SQ HS each Magnesium Hydroxide [Milk of Magnesia Concentrate] 2,400 mg PO BID PRN ml PRN Reason: Constipation polyethylene glycoL 3350 [Miralax] 17 gm PO DAILY PRN packet PRN Reason: Constipation guaiFENesin [Mucinex] 1,200 mg PO Q12HR tab INSULIN ASPART (NovoLOG) [NovoLOG (formulary)] 5 unit SQ AC-TID each INSULIN ASPART (NovoLOG) [NovoLOG (formulary)] 0 unit SQ ACHS each cefTRIAXone [Rocephin] 2 gm IVPB Q12HR each Acetaminophen Tab [Tylenol] 1,000 mg PO Q6HR PRN tab PRN Reason: Fever And/ Or Pain metOLazone [Zaroxolyn] 2.5 mg PO DAILY@0830 3 Days tab Continue Finasteride [Proscar] 5 mg PO DAILY Montelukast [Singulair] 10 mg PO DAILY Doxazosin Mesylate [Cardura] 8 mg PO BID Atorvastatin [Lipitor] 40 mg PO HS #30 tab Aspirin 325 mg PO DAILY #30 tab allopurinoL 100 mg PO DAILY Calcium Carbonate [Calcium] 600 mg PO BID Clotrimazole/Betameth Cream [Lotrisone] 1 applic TOPICAL BID Fluticasone Propion/Salmeterol [Advair Hfa 115-21 Mcg Inhaler] 2 puff INHALATION RT-BID Losartan Potassium [Cozaar] 100 mg PO DAILY Baclofen 10 mg PO BID PRN PRN Reason: Pain Tamsulosin HCl [Flomax] 0.4 mg PO DAILY Changed Furosemide [Lasix] 40 mg PO BID #0 Discontinued Glimepiride [Amaryl] 4 mg PO BID Insulin Glargine,Hum.rec.anlog [Toujeo Solostar] 24 units SQ HS Magnesium 250 mg PO DAILY amLODIPine [Norvasc] 5 mg PO BID hydrALAZINE HCL [Apresoline] 100 mg PO TID-W/MEALS Pioglitazone [Actos] 30 mg PO DAILY Albuterol Sulfate [Albuterol Sulfate Hfa] 1 puff PO RT-Q4H PRN PRN Reason: Shortness Of Breath Dapagliflozin Propanediol [Farxiga] 10 mg PO DAILY Febuxostat [Uloric] 40 mg PO DAILY Discharge Medication List Doxazosin Mesylate [Cardura] 8 mg PO BID 10/03/16 [History] Finasteride [Proscar] 5 mg PO DAILY 10/03/16 [History] Montelukast [Singulair] 10 mg PO DAILY 10/03/16 [History] Atorvastatin [Lipitor] 40 mg PO HS #30 tab 11/20/17 [Rx] Aspirin 325 mg PO DAILY #30 tab 12/08/17 [Rx] Baclofen 10 mg PO BID PRN 01/24/22 [History] Calcium Carbonate [Calcium] 600 mg PO BID 01/24/22 [History] Clotrimazole/Betameth Cream [Lotrisone] 1 applic TOPICAL BID 01/24/22 [History] Fluticasone Propion/Salmeterol [Advair Hfa 115-21 Mcg Inhaler] 2 puff INHALATION RT-BID 01/24/22 [History] Losartan Potassium [Cozaar] 100 mg PO DAILY 01/24/22 [History] Tamsulosin HCl [Flomax] 0.4 mg PO DAILY 01/24/22 [History] allopurinoL 100 mg PO DAILY 01/24/22 [History] Acetaminophen Tab [Tylenol] 1,000 mg PO Q6HR PRN tab 02/11/22 [Rx] Ampicillin Sodium 2 gm IVPB Q4HR 31 Days each 02/11/22 [Rx] Ascorbic Acid [Vitamin C] 500 mg PO BID-W/MEALS tab 02/11/22 [Rx] Benzocaine/Menthol Lozeng [Cepacol lozenge] 1 each MUCOUS MEM Q2H PRN lozenge 02/11/22 [Rx] Ferrous Sulfate [Iron (65 MG Elemental)] 325 mg PO BID-W/MEALS tab 02/11/22 [Rx] Fluticasone Nasal [place] [Flonase Nasal [place]] 2 spray EA NOSTRIL DAILY PRN ml 02/11/22 [Rx] Furosemide [Lasix] 40 mg PO BID #0 02/11/22 [Rx] INSULIN ASPART (NovoLOG) [NovoLOG (formulary)] 0 unit SQ ACHS each 02/11/22 [Rx] INSULIN ASPART (NovoLOG) [NovoLOG (formulary)] 5 unit SQ AC-TID each 02/11/22 [Rx] Insulin Detemir (Levemir) [Levemir] 26 unit SQ HS each 02/11/22 [Rx] Ipratropium-Albuterol Nebulize [Duoneb 0.5 mg-3 mg/3 ml Soln] 3 ml INHALATION RT-Q2H PRN each 02/11/22 [Rx] Ipratropium-Albuterol Nebulize [Duoneb 0.5 mg-3 mg/3 ml Soln] 3 ml INHALATION RT-QID each 02/11/22 [Rx] Lactulose [Cephulac] 20 gm PO TID PRN ml 02/11/22 [Rx] Magnesium Hydroxide [Milk of Magnesia Concentrate] 2,400 mg PO BID PRN ml 02/11/22 [Rx] Pantoprazole [Protonix] 40 mg PO AC-BRKFST tab 02/11/22 [Rx] Sennosides-Docusate Sodium [Senokot-S] 2 each PO HS tab 02/11/22 [Rx] Sertraline [Zoloft] 50 mg PO DAILY tab 02/11/22 [Rx] cefTRIAXone [Rocephin] 2 gm IVPB Q12HR each 02/11/22 [Rx] guaiFENesin [Mucinex] 1,200 mg PO Q12HR tab 02/11/22 [Rx] metOLazone [Zaroxolyn] 2.5 mg PO DAILY@0830 3 Days tab 02/11/22 [Rx] polyethylene glycoL 3350 [Miralax] 17 gm PO DAILY PRN packet 02/11/22 [Rx] Follow up Appointment(s)/Referral(s): Abril Farris MD [STAFF PHYSICIAN] - 1 Week (Please make follow-up appointment upon discharge from inpatient rehab) Cheri Cárdenas MD [STAFF PHYSICIAN] - 1 Week (Please make follow-up appointment upon discharge from inpatient rehab) Rehab Bri PH,Cardiac [NON-STAFF] - 4 Weeks (You will receive a phone call in approximately 4-6 weeks for evaluation for cardiac rehab) Jose Raul Parish MD [Primary Care Provider] - 1 Week (Please make follow-up appointment upon discharge from inpatient rehab) Yamileth Lopez MD [STAFF PHYSICIAN] - 03/01/22 10:00 am Rolf Cunningham MD [STAFF PHYSICIAN] - 1 Week Activity/Diet/Wound Care/Special Instructions: CONSULTATIONS AT INPATIENT REHAB: Dr. Cárdenas for cardiology;Dr. Scruggs for pacer management Dr. Farris for pulmonology Dr. Parish for internal medicine Dr. Cunningham for infectious disease Patient to continue on IV rocephin and ampicillan for 6 weeks post surgery (surgery date 01/31/22) per Dr. Cunningham Right anterior chest wall external pacer site dressing to be changed by Dr. Scruggs ONLY DISCHARGE INSTRUCTIONS: 1. No driving for 4 weeks, or until physician gives their ok. No lifting right arm above the level of the heart due to external pacemaker 2. The patient should sleep in their own bed, no medical bed needed. 3. Stairs are not an issue. Go slowly, using handrail and take 1 step at a time. 4. KAMRAN hose are to be worn for 30 days post surgery or until physician discontinues. 5. Heart hugger is to be worn 100% of the time until physician discontinues.(except when showering) 6. No lifting, pushing, or pulling more than 10 pounds for 12 weeks. The physician will advise of any restriction changes. 7. The patient is expected to continue the prescribed walking program. 8. Continue pain control per as needed orders. NO NARCOTICS!! 9. Continue with incentive spirometry and splinting/heart hugger until otherwise directed by the physician. 10. Must shower daily using liquid antibacterial soap 11. Routine sternal incision care. No powders, lotions, ointments on incisions. No dressings are necessary on incisions unless they are draining. Dermabond tape is to remain on sternal incision until surgeon follow-up. 12. Please call surgeon/PATTERN MAKER PROGRAMER for temp greater than 101 F or purulent drainage from incisions. 13. You should weigh yourself daily, record and bring log with you to follow up appointments. 14. All prescriptions given by surgeon for 30 days. Refills need to be filled through mink slicer/primary care physician. 15. A Red armband has been placed on the patient. It should be worn for 30 days post discharge from surgery and will be removed by the cardiac surgeons. If an ER visit is necessary, please make sure the number on the Red armband is called before going to ER. 16. You have been referred to and are expected to begin Cardiac Rehab in approximately 4-6 weeks. LABORATORY: CBC, CMP TO BE DRAWN DAILY AT REHAB, (RAN STAT) FAX RESULTS TO [phone]. [facility] INPATIENT REHAB/HOME HEALTH SERVICES TO PROVIDE: RN SKILLED HOME CARE SERVICES FOR POST-OP SURGICAL PATIENTS WITH THE FOLLOWING: Coronary Artery Bypass Surgery (CABG), Mitral Valve Replacement/Repair ( MVR), Aortic Valve Replacement/Repair (AVR) RN TO CONTINUE EDUCATION FROM ``ROAD TO A HEALTH HEART PATIENT EDUCATION MANUAL (GIVEN TO PATIENT IN THE HOSPITAL) MEDICATION RECONCILIATION WITH EDUCATION NEEDED ON FIRST HOME VISIT EMPHASIZE IMPORTANCE OF WEARING BREAST SUPPORT/HEART HUGGER ENCOURAGE USE OF INCENTIVE SPIROMETER 10 X EVERY HOUR WHILE AWAKE ENCOURAGE UTILIZATION OF LOWER EXTREMITY COMPRESSION STOCKINGS/KAMRAN HOSE and ELEVATE LEGS ABOVE LEVEL OF HEART WHILE AT REST. ENCOURAGE AMBULATION 3-5x/day INCREASING TOLERATES, WHILE AVOIDING EXTREMES IN TEMPERATURE FREQUENCY: RN TO OPEN THE PATIENT WITHIN 24 HOURS OF DISCHARGE FROM INPATIENT RE HAB WITH TELEHEALTH INSTALLED AT [facility] [place], RN TO VISIT 2-3 X A WEEK FOR 4 WEEKS ESTABLISHED BY PATIENT NEEDS. TELEHEALTH PARAMETERS: WEIGHT: NOTIFY MD OF WEIGHT GAIN OF 2 LBS IN 24 HOURS OR 5 LBS IN ONE WEEK HR: NOTIFY MD OF HR <55 BPM OR HR>100 BPM BP: NOTIFY MD IF BP <90/55 OR BP>140/100 O2 SAT: NOTIFY MD IF PO2<93% ON ROOM AIR SEND TELEHEALTH REPORT TO OPTOMETRIC COORDINATOR AND CARDIOVASCULAR SURGEON THE FIRST WEEK OF CARE AND THEN BI-WEEKLY. PLEASE ADDITIONALLY COMMUNICATE ANY ABNORMALS AND NEW FINDINGS TO THE SURGEONS OFFICE. Discharge Disposition: DC/TRNS INTERMEDIATE CARE FAC
[2022-02-11 11:36] LABS: Glucose,Whole Blood 128 mg/dL (70-110)
--- NOTE | 2022-02-11 11:52 | XR ---
EXAMINATION TYPE: XR chest 1V portable DATE OF EXAM: 02/11/2022 COMPARISON: Chest x-ray 02/10/2022 HISTORY: Postop aortic valve replacement redo TECHNIQUE: Single frontal view of the chest is obtained. FINDINGS: Generator is present in the right pectoral region, there is a lead in the right ventricle. Patient is post median sternotomy and aortic valve replacement, left atrial appendage clip placement . The heart is enlarged. There is no evident pneumothorax. Retrocardiac density with blunting the lef t costophrenic angle is noted. There are overlying leads. IMPRESSION: Findings are similar to prior exam. Probable left lower lobe atelectasis and possible as sociated effusion.
[2022-02-11 16:36] VITALS: BP 152/62; PULSE 71; RESP 11; TEMP 98.3
--- NOTE | 2022-02-11 18:27 | P.PN ---
Subjective Progress Note Date: 02/11/22 HISTORY OF PRESENT ILLNESS This is a 76-year-old male patient with past medical history of hypertension with hypertensive cardiovascular disease, hyperlipidemia, diabetes mellitus type 2 with diabetic polyneuropathy, enlarged prostate, history of aortic valve disease status post aortic valve replacement with a 23 mm valve on 12/04/2017, prior to that, left heart catheterization revealed 30-40% stenosis in the RCA in 2018, history of melanoma status post resection 12/07/2021, from the back. Patient initially presented to [facility] with mental status changes with significant encephalopathy. CAT scan of the brain did not show any acute infarct or bleed. Patient did have leukocytosis and low-grade fever. He is status post IV fluid resuscitation, he was started on IV antibiotics initially in the form of Levaquin and subsequently changed to ampicillin and cef triaxone by Dr. Cunningham. EKG did not show any evidence of acute changes. CAT scan of the chest abdomen and pelvis showed some perinephric stranding without evidence of hydronephrosis, there was evidence of diverticulosis without diverticulitis. CAT scan of the chest showed evidence of cardiomegaly with bilateral pleural effusion and possible pulmonary fibrosis. CAT scan of the cervical spine did show evidence of spondylosis of cervical spine without evidence of fracture. CAT scan of the brain showed brain atrophy without evidence of acute infarct or bleed, small vessel disease present. Patient was initially admitted to [facility] where he was followed by infectious disease as well as cardiology. He underwent a REESE on 01/22 revealed left ventricular systolic function normal at 55-60%, small aortic valve vegetation was present measuring 0.53 cm. Patient has bioprosthetic aortic valve. Moderate MR, oxij-wh-podpfrah tricuspid regurgitation, no pericardial effusion. Patients blood cultures were positive for enterococcus species. Patient was in a sinus rhythm with a first-degree AV block but subsequently developed a high-grade AV block on 01/24 with progressive worsening of the AV block and PVCs. Patient is complaining of left lower rib cage chest discomfort. No palpitations or dizziness. Patient was then transferred to [facility] to be evaluated by cardiothoracic surgery team. Patient is seen today in the intensive care unit, consults added for cardiology, gamer, cardiothoracic surgery. 01/25: Patient is seen today in the ICU. He states he slept well last night. He states he is better able to take a deep breath with less pain on his left chest wall. He is able to reach 1500 MLS on incentive spirometry. He is complaining of tingling in bilateral feet. Has not had a bowel movement but feels that he needs to today. Senokot scheduled added. Blood sugar was low this morning and glimepiride decreased to 2 mg twice daily and Levemir decreased to 20 units. Patient has an external catheter in place draining clear emily urine. He has been evaluated by cardiology, cardiothoracic surgery and gamer. Cardiology is planning for temporary pacemaker. C plan to continue close monitoring in the intensive care unit, monitor results of the blood cultures.hest x-ray reveals postoperative changes similar to prior exam. There may be some interstitial changes. Carotid ultrasound reveals slight elevated velocity in the internal carotid arteries bilaterally suggestive of 50-70 percent stenosis. There is antegrade flow in the vertebral arteries. Panorex CAT scan completed without any significant abnormalities. Arterial ultrasound bilateral lower extremities revealed normal ankle brachial indices. 01/26: Patient is lying down in bed in no acute distress, yesterday underwent temporary TVP for 2nd degree AV block, plan is to repeat REESE for further evaluation of possible abscess formation and the degree of involvement of the aortic ring of the bioprosthetic aortic valve, we will continue with IV Rocephin and Ampicillin for now, repeated blood cltures from 01/24/2022 still no growth so far, also nasal screen negative for MSSA.MRSA, bedside spirometer showed FEV2 38 % of predicted, we will continue with aggressive pulmonary toiletting, patient has been seen by multiple services , prognosis continues to be guarded, spoke with his daughter and his over the phone , they are contemplating if [facility] or [facility], our cardiothoracic team is involved and hopefully will see patient today and alleviate his concerns and give their recommendations on surgical intervention. 01/28: The patient remains in the intensive care unit patient has been afebrile, heart rate 70s, blood pressure 157/77, pulse ox 94% on room air. library monitor is a paced rhythm. Cardiac catheterization, performed on 01/27, reveals moderate disease in the mid RCA, no evidence of high-grade stenosis in the LAD or left circumflex and placement of a temporary pacemaker. Patient will be seen by a dentist this afternoon. He is utilizing his incentive spirometry regularly and reaching 2000 2500. He is eating all of his food. He states he had a bowel movement yesterday and today. He is urinating without any difficulty. Patient is expecting to be seen by Dr. Lopez to discuss surgical options. WBC 6.4, hemoglobin 0.5, platelet count 235. BMP within normal limits. Calcium 8.2. Capillary blood glucose running between 126 and 196. Blood culture obtained on 01/24 showing no growth after 72 hours 1 specimen. 01/29: Patient was seen by the dentist yesterday and was cleared by surgery. He complains of dry mouth when he woke up this morning but otherwise no new complaints. library monitor is paced rhythm. Pulse ox 95% on room air. Blood pressure elevated 182/87. Hydrochlorothiazide 25 mg added to his blood pressure regime. Repeat blood work reveals WBC 5.3, hemoglobin 11.7, platelet count 230. Electrolytes and renal function normal. Capillary blood glucose running between 97-194. Patient is waiting to hear from the cardiothoracic team regarding plan for surgery. 01/30: Patient is scheduled for redo aortic valve replacement, possible aortic root replacement on 01/31. a consult was added for urology yesterday for recurrent UTIs. Patient denies dysuria, he is able to void spontaneously and is maintained on Flomax and Proscar. Dr. Farooq believes the culture from 2019 is contamination rather than actual UTI with history of phimosis contributing to positive culture. Plan to follow up with Dr. Emmanuel as normally scheduled. patient is continued on antibiotics the form of ampicillin and Rocephin. patient has remained afebrile. Pulse ox is 97% on room air. CM paced rhythm. Blood pressure 140/67 and has been improved overnight with addition of hydrochlorothiazide yesterday. Repeat blood work reveals WBC 6.1, hemoglobin 11.7, platelet count 237. Electrolytes and renal function are normal with creatinine of 1.08. White blood glucose running between 109 and 177. 01/31: Patient remains afebrile overnight with heart rate 49-54. Blood pressure 139/69 and pulse ox 94% on room air. Repeat blood work reveals WBC 5.0, hemoglobin 11.1, platelet count 246. Sodium 136, potassium 4.4, chloride 103, CO2 24, BUN 29 creatinine 1.05. Blood sugar 122. Capillary blood glucose running between 106 and 166. Patient is scheduled for redo aortic valve replacement today. 02/01: Patient is status post aortic valve replacement with bioprosthetic device. He remains in the intensive care unit. He was successfully extubated last evening and currently on 2 L nasal cannula with pulse ox of 97%. Heart rate is running in the 80s, blood pressure 114/60. library monitor is paced rhythm. Repeat blood work reveals WBC 6.3, hemoglobin 7.3, platelet count 150. Sodium 136, potassium 4.7, chloride 108, CO2 22, BUN 20 creatinine 1.17. Capillary blood glucose running between 110 and 127. Magnesium 2.6. Intraoperative tissue cultures are in process. Repeat chest x-ray reveals postoperative changes with bilateral infiltrate and small effusions. Patient has been started on Plavix, aspirin 325 mg daily, patient started on insulin drip, Levemir and Farxiga discontinued. The patient is complaining of sensation like urethral spasm like he has a urinary tract infection, Hargrove catheter is in place and draining. No hematuria. Patient states he is only sleeping a few minutes at a time. He does not have much appetite. 02/02 : Patient is feeling weak today , somewhat forgetful, did receive one unit of PRBC, chest tubes were removed and he will be switched to Levemir 24 units sc qhs and Novolog 5 units AC meals plus SSI and he will comeoff insulin drip, he continues to have dysuria, has Hargrove catheter in place and we will continue to have chronic phimosis that will require surgery down the line. 02/04: Patient is resting recliner in the ICU. He states he slept a little bit last night but is consistently not getting much sleep. He states he feels less short of breath today. He is complaining of needing to void but he continues to have a Hargrove catheter in place. He has not had a bowel movement for the last 3- 4 days. Lactulose added. He also states that he continues to have decreased appetite which may improve after having a bowel movement. Patient is scheduled for external pacemaker today with Dr Scruggs. library monitor is paced rhythm. He is currently on insulin 24 units of Levemir at bedtime along with 5 units of NovoLog with meals and NovoLog scale. Blood Glucose Running between 130 and 203. Repeat Blood Work Reveals WBC 6.2, Hemoglobin 7.8 up to 140. Sodium 130, Potassium 4.1, Chloride 102, CO2 20, BUN 27 Creatinine 1.15. Magnesium 2.6. Patient Received 1 Unit of Packed RBCs Yesterday. Tissue Culture Is Positive for Enterococcus Faecalis. Chest x-ray this morning reveals difficult to exclude pulmonary edema, pneumonia, atelectasis and possible associated effusion. Patient is reaching 1 500 mL on incentive spirometry. 02/05: Patient states that he wishes that he felt better. He complains of hacking cough and wheezing and he had a nebulizer treatment a couple hours ago and states it did not help him. He also complains of not being able to sleep. He states he has not had a bowel movement despite multiple medications for bowel regime. Patient have a repeat Dulcolax suppository this morning and lactulose increased to 3 times daily. Hargrove catheter remains in place. Yesterday, patient underwent externalized temporary pacemaker implantation yesterday with Dr. 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 Patient will be able to be discharged with this device in place. Patient remains in the intensive care unit. He's been afebrile, heart rate in the 80s, blood pressure 129/74, pulse ox 98% on 2 L nasal cannula. Repeat blood work reveals WBC 4.9, hemoglobin 7.8, platelet count 153. Sodium 136 otherwise electrolytes and renal function are within normal limits. Calcium is 7.7. Capillary blood glucose running between 90-136. Repeat chest x-ray in pending. 02/06: Patient remains in the intensive care unit, he is seen today for resting in recliner. He continues to state that he is tired and not sleeping. He states he was able to walk around the unit yesterday and did well with physical therapy. Patient was evaluated by Dr. Morgan and appears to be a good candidate waiting for insurance approval. Patient did state he had a bowel movement after multiple medication regime. Hargrove was discontinued yesterday and he's been able to void. Patient does complain of shortness of breath order for Lasix 40 mg IV 1 today and will increase this to 40 mg IV twice daily. Patient has significant 3+ edema, significant edema in the scrotal/penis area. He is able to void despite this edema. Patient states that he has not been eating well and continues to not have any appetite. Patient remains afebrile, heart rate in the 80s, blood pressure 132/86, pulse ox 94% on room air. Repeat blood work reveals WBC 5, hemoglobin 7, platelet count 181. Sodium 135 otherwise electrolytes and renal function are normal. Her blood glucose running between 158 and 221. Levemir will be increased by 2 units. 02/07: Patient remains in the intensive care unit he has been afebrile, heart rate in the 80s, blood pressure 149/72, pulse ox 96% on room air. Repeat blood work reveals WBC 5.4, hemoglobin 7.3 and platelet count 207. Sodium 137, potassium 4.2, chloride 107, CO2 21, BUN 16 creatinine 0.96. Currently blood glucose running between 165 and 193. Repeat chest x-ray reveals cardiomegaly with bilateral infiltrate and pleural effusion stable correlate for mild venous congestion. Pulmonary medicine has suggested a transthoracic echocardiogram to evaluate the aortic valve function especially with his ongoing edema. Echoca rdiogram is being done today. Pacemaker has been turned down to 40 and patient is currently in first grade lock 70 bpm. Lasix has been increased by cardiology to 80 mg in the a.m. and 40 mg in the afternoon. 02/08: Patient remains in the intensive care unit. He states that he is finally feeling better because he slept for 5-6 hours last night. He continues to have significant edema especially concerning to him is the scrotal area. He has able to void on his own. Patient was started on Mucomyst yesterday. Echocardiogram from yesterday revealed Repeat chest x-ray reveals findings similar to prior exam, there may be basilar atelectasis difficult to exclude small effusion. Difficult to exclude mild interstitial edema. Cardiomegaly. Patient remains afebrile, heart rate in the 50s and 60s, blood pressure 99/56, pulse ox 97% on room air. library monitor is sinus rhythm with a first-degree block Repeat blood work reveals WBC 5.5, hemoglobin 7.4, platelet count 213. Electrolytes and renal function are within normal limits. White blood glucose running between 128 and 260. Patient is reaching 1250 on incentive spirometry. 02/10: Patient is sitting up in chair in no acute distress, feeling better, better, swelling in both legs and scrotum, we will continue with same Ampicillin and Rocephin along with Lasix 40 mg po bid along with zaroxolyn 2.5 mg po daily, we will continue with monitoring.he is scheduled to be leaving to Inpatient rehabilitation at [facility] today. REVIEW OF SYSTEMS Constitutional: No fever, no chills, no night sweats. No weight change. No weakness, denies fatigue no lethargy. Reports daytime sleepiness. EENT: No headache. No blurred vision or double vision, no loss of vision. No loss of Hearing, no ringing in the ears, no dizziness. No nasal drainage or congestion. No epistaxis. No sore throat. Lungs: Reports mild shortness of breath improving, reports cough, no sputum production. Reports wheezing. Cardiovascular: Reports chest discomfort, positive edema. No palpitations. No paroxysmal nocturnal dyspnea. No orthopnea. No lightheadedness or dizziness. No syncopal episodes. Abdominal: No abdominal pain. No nausea, vomiting. No diarrhea. No constipation. No bloody or tarry stools. Reports loss of appetite. Genitourinary: No dysuria, increased frequency, urgency. No urinary retention- Hargrove catheter in place. Musculoskeletal: No myalgias. No muscle weakness, no gait dysfunction, no frequent falls. No back pain. No neck pain. Integumentary: No wounds, no lesions. No rash or pruritus. No unusual br uising. Neurologic: No aphasia. No facial droop. No change in mentation. No head injury. No headache. No paralysis. No paresthesia. Psychiatric: No depression. No anxiety. No mood swings. Reports insomnia Endocrine: Noted abnormal blood sugars. No weight change. No excessive sweating or thirst. No cold intolerance. PHYSICAL EXAMINATION Gen: This is a 76-year-old male. He is resting in ICU recliner and appears to be in no acute distress. HEENT: Head is atraumatic, normocephalic. Pupils equal, round. Sclerae is anicteric. NECK: Supple. No JVD. No lymphadenopathy. No thyromegaly. LUNGS: Decrease breath sounds at the bases No wheezes or rhonchi, sternotomy site is covered with dressing HEART: First heart sound is depressed, second heart sound is normal, aortic valve click, systolic ejection murmur 2/6 at the left sternal border. library monitor is paced rhythm. External pacemaker on the right anterior chest wall covered with dressing. ABDOMEN: Soft. Bowel sounds are present. No masses. No tenderness. Positive edema to the abdomen and back, positive scrotal and penile edema. EXTREMITIES: Bilateral pedal edema. No calf tenderness. Dorsalis pedis +2 bilaterally. Bilateral hand edema. NEUROLOGICAL: Patient is awake, alert and oriented x3. Cranial nerves 2 through 12 are grossly intact. Muscle power 4 out of 5 upper and lower extremities bilaterally. ASSESSMENT AND PLAN 1. 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 Patient is continued on IV Lasix 80 mg in the morning and 40 mg in the afternoon. 2. Third degree AV block. has a temporary Pacemaker and is status post external temporary pacemaker 02/04. 3. Enterococcus Feacalis Endocarditis and bacteremia. we will continue with Rocephin 2 gr IVPB Q 12 hours and Ampicillin 2 gr IVPB Q 6 hours, ID team is following. 4. Hypertension with hypertensive cardiovascular disease. Continue patient on Hydralazine 50 mg po bid and Cardura 8 mg po bid, losartan 100 mg daily. 5. Hyperlipidemia. Continue atorvastatin 40 mg at bedtime. 6. Diabetes mellitus type 2. Continue patient on Levemir 26 units Sc qhs , Novolog 5 units AC meals tid along with SSI. 7. Benign prostatic hypertrophy. Continue Flomax 0.4 mg daily, continue finasteride 5 mg daily 8. 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 Continue patient on Symbicort 160- 4.5 g 2 puffs twice daily, Mucomyst 200 mg 4 times daily per nebulizer, albut emir nebulizer every 4 hours as needed for shortness of breath, reviewed bedside spirometery with FEV1 38 % of predicted. 9. ALLERGIC rhinitis. Continue Singulair 10 mg at bedtime. 10. Chronic gout. Continue allopurinol 100 mg daily. 11. DVT prophylaxis. Heparin 5000 units subcu every 8 hours. 12. GI prophylaxis. Protonix 40 mg daily. 13. Acute blood loss Anemia, expected with surgery S/P 3 units of PRBCs. 14. Fluid overload secondary to IV fluids, surgical intervention. Patient is continued on Lasix 80 mg in the morning 40 mg in the afternoon. Repeat echocardiogram as above. 15. Medical debility. scheduled for transfer to inpatient rehab today. CODE STATUS: Full code. Objective - Vital Signs Vital signs: Vital Signs Temp 98.3 F 02/11/22 16:00 Pulse 71 02/11/22 16:00 Resp 11 L 02/11/22 16:00 BP 152/62 02/11/22 16:00 Pulse Ox 96 02/11/22 16:00 FiO2 50 02/08/22 10:00 Intake & Output 02/10/22 02/11/22 02/11/22 18:59 06:59 18:59 Intake Total 130 420 100 Output Total 1820 1200 1360 Balance -1690 -780 -1260 Weight 112.7 kg 107.6 kg 107.6 kg Intake: IV 130 420 100 Ampicillin 2,000 mg In 300 Sodium Chloride 0.9% 100 ml @ 200 mls/hr IVPB Q4HR [facility] Rx#:[id number] Sodium Chloride 0.9% 1, 130 70 100 000 ml @ 20 mls/hr IV . Q24H [facility] Rx#:[id number] cefTRIAXone 2 gm In 50 Sodium Chloride 0.9% 50 ml @ 100 mls/hr IVPB Q12HR [facility] Rx#:[id number] Output: Urine 1820 1200 1360 Other: Voiding Method Bedside Commode Bedside Commode Bedside Commode Urinal Urinal Urinal # Voids 1 # Bowel Movements 1 ABP, PAP, CO, CI - Last Documented Arterial Blood Pressure 167/54 Pulmonary Artery Pressure 36/15 Cardiac Output 5.5 Cardiac Index 2.5 - Labs CBC & Chem 7: 02/11/22 07:07 02/11/22 07:07 Labs: Abnormal Lab Results - Last 24 Hours (Table) 02/10/22 02/11/22 02/11/22 Range/Units 20:03 06:31 07:07 RBC (4.30-5.90) m/uL Hgb (13.0-17.5) gm/dL Hct (39.0-53.0) % MCHC (31.0-37.0) g/dL RDW (11.5-15.5) % Sodium 136 L (137-145) mmol/L Glucose 101 H (74-99) mg/dL POC Glucose (mg/dL) 196 H 123 H (70-110) mg/dL Calcium 8.3 L (8.4-10.2) mg/dL 02/11/22 02/11/22 Range/Units 07:07 11:35 RBC 2.51 L (4.30-5.90) m/uL Hgb 7.6 L (13.0-17.5) gm/dL Hct 24.9 L (39.0-53.0) % MCHC 30.6 L (31.0-37.0) g/dL RDW 18.0 H (11.5-15.5) % Sodium (137-145) mmol/L Glucose (74-99) mg/dL POC Glucose (mg/dL) 128 H (70-110) mg/dL Calcium (8.4-10.2) mg/dL
[2022-02-12] MEDS ORDERED: metOLazone 2.5 MG TAB PO SCH (08:30)
== END 2022-02-11 16:32 | DRG 216 ==
LOC: 2SICU 12:10
PROVIDERS: ADMIT Surgery; ATTEND Surgery
PROC: 5A1223Z Performance of Cardiac Pacing, Continuous (ICD-10-PCS; 2022-01-25)
PROC: 02PA3NZ Removal of Intracardiac Pacemaker from Heart, Percutaneous Approach (ICD-10-PCS; 2022-01-27)
PROC: 02HK3NZ Insertion of Intracardiac Pacemaker into Right Ventricle, Percutaneous Approach (ICD-10-PCS; 2022-01-27)
PROC: 4A023N7 Measurement of Cardiac Sampling and Pressure, Left Heart, Percutaneous Approach (ICD-10-PCS; 2022-01-27)
PROC: B2111ZZ Fluoroscopy of Multiple Coronary Arteries using Low Osmolar Contrast (ICD-10-PCS; 2022-01-27)
PROC: 30233R1 Transfusion of Nonautologous Platelets into Peripheral Vein, Percutaneous Approach (ICD-10-PCS; principal; 2022-01-31 08:00)
PROC: 30233N1 Transfusion of Nonautologous Red Blood Cells into Peripheral Vein, Percutaneous Approach (ICD-10-PCS; principal; 2022-01-31 08:00)
PROC: 3E043XZ Introduction of Vasopressor into Central Vein, Percutaneous Approach (ICD-10-PCS; principal; 2022-01-31 08:00)
PROC: 02RF08Z Replacement of Aortic Valve with Zooplastic Tissue, Open Approach (ICD-10-PCS; principal; 2022-01-31 08:00)
PROC: 02P Heart and Great Vessels, Removal (ICD-10-PCS; principal; 2022-01-31 08:00)
PROC: 30233K1 Transfusion of Nonautologous Frozen Plasma into Peripheral Vein, Percutaneous Approach (ICD-10-PCS; principal; 2022-01-31 08:00)
DX: T82.6XXA Infection and inflammatory reaction due to cardiac valve prosthesis, initial encounter (principal); A41.81 Sepsis due to Enterococcus; G93.41 Metabolic encephalopathy; I33.0 Acute and subacute infective endocarditis; R65.21 Severe sepsis with septic shock; D62 Acute posthemorrhagic anemia; I42.9 Cardiomyopathy, unspecified; I44.2 Atrioventricular block, complete; J98.11 Atelectasis; E11.42 Type 2 diabetes mellitus with diabetic polyneuropathy; E11.649 Type 2 diabetes mellitus with hypoglycemia without coma; E66.9 Obesity, unspecified; E78.5 Hyperlipidemia, unspecified; G31.9 Degenerative disease of nervous system, unspecified; G47.33 Obstructive sleep apnea (adult) (pediatric); I08.3 Combined rheumatic disorders of mitral, aortic and tricuspid valves; I11.0 Hypertensive heart disease with heart failure; I25.10 Atherosclerotic heart disease of native coronary artery without angina pectoris; Z68.32 Body mass index [BMI] 32.0-32.9, adult; J44.9 Chronic obstructive pulmonary disease, unspecified; I25.2 Old myocardial infarction; I50.9 Heart failure, unspecified; I65.23 Occlusion and stenosis of bilateral carotid arteries; K59.00 Constipation, unspecified; M1A.9XX0 Chronic gout, unspecified, without tophus (tophi); M47.812 Spondylosis without myelopathy or radiculopathy, cervical region; M47.816 Spondylosis without myelopathy or radiculopathy, lumbar region; N40.1 Benign prostatic hyperplasia with lower urinary tract symptoms; N47.1 Phimosis; R33.8 Other retention of urine; N50.89 Other specified disorders of the male genital organs; R77.8 Other specified abnormalities of plasma proteins; K57.90 Diverticulosis of intestine, part unspecified, without perforation or abscess without bleeding; Y83.1 Surgical operation with implant of artificial internal device as the cause of abnormal reaction of the patient, or of later complication, without mention of misadventure at the time of the procedure; Z79.4 Long term (current) use of insulin; Z79.51 Long term (current) use of inhaled steroids; Z79.82 Long term (current) use of aspirin; Z79.84 Long term (current) use of oral hypoglycemic drugs; Z79.899 Other long term (current) drug therapy; Z80.8 Family history of malignant neoplasm of other organs or systems; Z82.49 Family history of ischemic heart disease and other diseases of the circulatory system; Z86.006 Personal history of melanoma in-situ; Z87.891 Personal history of nicotine dependence; Z98.61 Coronary angioplasty status; Z87.440 Personal history of urinary (tract) infections; Z71.3 Dietary counseling and surveillance; Z95.2 Presence of prosthetic heart valve
CPT/HCPCS: 33210; 36410; 70486; 71045; 71046; 76937; 80048; 80053; 80061; 80074; 81001; 82330; 82805; 83036; 83735; 84132; 84439; 84443; 85025; 85027; 85384; 85520; 85610; 85730; 86850; 86891; 86900; 86901; 86920; 87040; 87070; 87075; 87077; 87186; 87205; 87635; 88305; 93308; 93458; 93880; 93922; 93970; 94002; 94150; 94640; 94667; 94668

== ENCOUNTER 2022-02-28 07:02 | Day surgery (SDC) | payer MEDICARE, BC ==
[~2022-02-28 07:02] MED LIST changes: -ALBUMIN HUMAN 25% 50 ML IV ONE; -ALBUMIN HUMAN 5% 500 ML IVPB ONE; -ASPIRIN 325 MG TAB PO ONE; -ATORVASTATIN 10 MG TAB PO ONE; -CALCIUM CHLORIDE 100 MG/ML 10 ML SYRINGE IV ONE; -CHLORHEXIDINE GLUCONATE 15 ML CUP MUCOUS MEM ONE; -CLEVIDIPINE BUTYRATE 25 MG in EMPTY BAG 1 BAG IV ONE; -DEXTROSE 5% IN WATER 1,000 ML with POTASSIUM CHLORIDE 110 MEQ, MAGNESIUM SULFATE 16 MEQ... IV ONE; -DEXTROSE 5% IN WATER 1,000 ML with POTASSIUM CHLORIDE 25 MEQ, SODIUM CHLORIDE 2.5MEQ/ML... IRRIGATION ONE; -HEPARIN SODIUM 1,000 UN/ML (10ML VL) IV ONE; -HEPARIN SODIUM,PORCINE 5,000 UNIT in SODIUM CHLORIDE 0.9% 500 ML IV ONE; -INSULIN REGULAR 100 UNIT in SODIUM CHLORIDE 0.9% 100 ML IV ONE; -LACTATED RINGERS 1,000 ML IV ONE; -MAGNESIUM SULFATE MG 500 MG/ML VIAL IV ONE; -MANNITOL 25% 12.5 GM/50 ML VIAL IV ONE; -METOPROLOL TARTRATE 12.5 MG TAB PO ONE; -NITROGLYCERIN-D5W PMX 25 MG/250 ML BTL IV ONE; -NITROGLYCERIN-D5W PMX 50 MG in DEXTROSE/WATER 1 250ML.BAG IV ONE; -NOREPINEPHRINE 4 MG in DEXTROSE 5% IN WATER 250 ML IV ONE; -PHENYLEPHRINE 40 MG in SODIUM CHLORIDE 0.9% 250 ML IV ONE; -PHENYLEPHRINE-0.9% NACL SYG 1 MG/10 ML SYRINGE IV ONE; -PROPOFOL 1,000 MG/100 ML VIAL IV ONE; -PROTAMINE SULFATE 10 MG/ML 25 ML VIAL IV ONE; -PROTAMINE SULFATE 250 MG in EMPTY BAG 1 BAG IV ONE; -SODIUM BICARB 8.4% 50 ML SYR (1 MEQ/ML) IV ONE; -SODIUM CHLORIDE 0.9% 1,000 ML IV ONE; +SODIUM CHLORIDE 0.9% 1,000 ML IV SCH; -TRANEXAMIC ACID 2,000 MG in SODIUM CHLORIDE 0.9% 180 ML IV ONE; +ceFAZolin 1 GM in SODIUM CHLORIDE 0.9% IRRIG BTL 250 ML IRRIGATION PRN; -ceFAZolin 1,000 MG in SODIUM CHLORIDE 0.9% IRRIGATIO 1,000 ML IRRIGATION ONE; -ceFAZolin 2,000 MG in SODIUM CHLORIDE 0.9% 30 ML IVPB ONE
[2022-02-28 07:24] LABS: Glucose,Whole Blood 133 mg/dL (70-110)
[2022-02-28 07:41] VITALS: RESP 18; TEMP 98.3
[2022-02-28 08:06] LABS: Basophils % (A) 1 %; Eosinophils # (A) 0.4 k/uL (0-0.7); Eosinophils % (A) 9 %; HCT 32.5 % (39.0-53.0); HGB 10.1 gm/dL (13.0-17.5); Hypochromasia Marked; Lymphocytes # (A) 0.6 k/uL (1.0-4.8); Lymphocytes % (A) 14 %; MCH 30.6 pg (25.0-35.0); MCV 98.7 fL (80.0-100.0); Macrocytosis Slight; Mean Platelet Volume 9.2; Monocytes # (A) 0.3 k/uL (0-1.0); Monocytes % (A) 7 %; Neutrophils # (A) 2.8 k/uL (1.3-7.7); Neutrophils % (A) 68 %; Platelet Count 142 k/uL (150-450); Poikilocytosis Slight; RBC 3.29 m/uL (4.30-5.90); RDW 15.3 % (11.5-15.5); WBC 4.2 k/uL (3.8-10.6)
[2022-02-28] MEDS: LIDOCAINE 1% INJ 10MG/ML (30 ML VIAL-PF) SQ ONE ×2 (09:16→09:23)
--- NOTE | 2022-02-28 09:41 | P.EPPROC ---
- EP Procedure Note Electrophysiology Procedure Note: Diagnosis Enterococcal infection of the bioprosthetic aortic valve Progressive AV block on IV antibiotics to third-degree heart block, despite IV antibiotic Aortic valve replacement along with septal abscess curettage Externalize RV pacemaker placed post valve replacement Gradually within one week and was improvement in AV node function Pacemaker was programmed to VVI 30 beats a minute over the last 2 weeks Currently the patient has mild first-degree AV block which is back to his baseline Patient has had one-to-one conduction, no pacing Procedure 1 Under conscious sedation the lead is freed from the skin and the lead sleeve Stylet was placed Counterclockwise rotations and gradually manual traction the lead was extracted from the right ventricle After allowing for little backbleeding, soup sutures were placed over the access site There was no evidence for infection/cellulitis at the incision site Patient remains on IV antibiotics and has a PICC line /central line via the left axillary/subclavian system The site was dressed Procedure 2 Implantation of a loop monitor subcutaneous Since the patient developed complete heart block that lasted for over 7-10 days and has had lead to aortic valve replacement, a decision was made to implant a loop monitor to monitor for any intermittent advanced AV block that would necessitate permanent pacing in the future. Loop monitor implant Primary physicians: Dr. Parish Hand Tufter: Dr. Cárdenas Indication: As above Patient was brought to the EP lab in a fasting state. Written informed consent was obtained prior to the procedure. The left pectoral area was prepped and draped per protocol. Intravenous antibiotic was administered preoperatively. A subcutaneous Loop monitor was implanted successfully and the wound was closed per protocol. The device was programmed to detect significant yuliana- arrhythmic and tachy-arrhythmic events, per protocol. Device and programming details: Programming to detect bradycardia secondary to AV block Patient underwent EP procedure under conscious sedation/moderate sedation, monitoring of the level of consciousness and physiologic parameters including but not limited to vital signs and oxygenation. Patient tolerated the procedure well without any acute complications. Start time: 910 Stop time: 9:30
[2022-02-28] MEDS ORDERED: LOSARTAN 50 MG TAB PO STA (09:49)
[2022-02-28] MEDS ORDERED: FUROSEMIDE 10 MG/ML 4 ML VIAL IV STA (10:26)
--- NOTE | 2022-02-28 10:53 | XR ---
EXAMINATION TYPE: XR chest 2V DATE OF EXAM: 02/28/2022 COMPARISON: 02/11/2022 TECHNIQUE: PA and lateral views submitted. HISTORY: Shortness of breath FINDINGS: Diffuse interstitial pattern with cardiomegaly and postoperative changes. Bilateral small effusions a nd basilar infiltrate. No pneumothorax. Hypertrophic and degenerative changes of the spine. Left atri al appendage is suggested and appears to be evidence of previous aortic valve surgery. Suspect underl pia COPD. Left-sided PICC line noted stable. IMPRESSION: 1. The findings most typical of CHF. Underlying pneumonia not excluded
[2022-02-28 17:19] VITALS: BP 189/101; PULSE 80
== END 2022-02-28 11:14 | disposition home or self-care (01) ==
LOC: CATHEP 07:02
PROVIDERS: ATTEND Internal Medicine Clinical Cardiac Electrophysiology
DX: I44.0 Atrioventricular block, first degree (principal); I11.0 Hypertensive heart disease with heart failure; I50.9 Heart failure, unspecified; E11.9 Type 2 diabetes mellitus without complications; E78.5 Hyperlipidemia, unspecified; F17.210 Nicotine dependence, cigarettes, uncomplicated; Z82.49 Family history of ischemic heart disease and other diseases of the circulatory system; Z79.899 Other long term (current) drug therapy
CPT/HCPCS: 33234; 33285; 83880; 85025; 71046; C1764; J1940; J0690; J2001

== ENCOUNTER → 2022-03-25 | Outpatient (CLI) | payer MEDICARE, BC ==
[2022-03-25 14:32] LABS: African American GFR (CKD) 60.6 (60.0-200.0); Anion Gap 10.7 mmol/L (10.00-18.00); BUN/Creat Ratio 21.38 Ratio (12.00-20.00); Blood Urea Nitrogen 27.8 mg/dL (9.0-27.0); Calcium 9.5 mg/dL (8.7-10.3); Carbon Dioxide 26.3 mmol/L (20.0-27.5); Non-African American GFR(CKD) 52.3 (60.0-200.0); Potassium 4.3 mmol/L (3.5-5.5)
== END | disposition home or self-care (01) ==
LOC: LABWHC1 09:28
PROVIDERS: ATTEND Internal Medicine Interventional Cardiology
DX: I50.32 Chronic diastolic (congestive) heart failure (principal)
CPT/HCPCS: 36415; 80048; 83880

== ENCOUNTER → 2022-04-18 | Outpatient (CLI) | payer MEDICARE, BC | END | disposition home or self-care (01) | LOC: LABPAT 08:29 | PROVIDERS: ATTEND Urology | DX: Z53.9 Procedure and treatment not carried out, unspecified reason (principal) ==

== ENCOUNTER → 2022-04-18 | Outpatient (CLI) | payer MEDICARE, BC ==
[2022-04-18 11:54] LABS: Appearance,Urine Clear (Clear); Bilirubin,Urine Negative (Negative); Blood,Urine Negative (Negative); Color,Urine Light Yellow; Glucose,Urine (UA) 3+ (Negative); Ketones,Urine Negative (Negative); Leukocyte Esterase,Urine Negative (Negative); Nitrite,Urine Negative (Negative); Protein,Urine Negative (Negative); Urobilinogen,Urine <2.0 mg/dL (<2.0)
[2022-04-18 15:04] LABS: HCT 42.6 % (39.6-50.0); HGB 13.4 g/dL (13.0-17.0); MCH 27.3 pg (27.0-32.0); MCHC 31.5 g/dL (32.0-37.0); MCV 86.8 fL (80.0-97.0); Mean Platelet Volume 11.4 fL (9.5-12.2); NRBC Per 100 WBC 0 /100 WBCS (0.0-0.0); Platelet Count 138 X 10*3/uL (140-440); RBC 4.91 X 10*6/uL (4.40-5.60); RDW 15.9 % (11.5-14.5); WBC 6.47 X 10*3/uL (4.50-10.00)
[2022-04-18 15:35] LABS: African American GFR (CKD) 65.4 (60.0-200.0); Anion Gap 11.2 mmol/L (10.00-18.00); Blood Urea Nitrogen 24.4 mg/dL (9.0-27.0); Calcium 9.3 mg/dL (8.7-10.3); Carbon Dioxide 24.4 mmol/L (20.0-27.5); Non-African American GFR(CKD) 56.4 (60.0-200.0); Potassium 4.4 mmol/L (3.5-5.5)
== END | disposition home or self-care (01) ==
LOC: LABWHC1 08:32
PROVIDERS: ATTEND Internal Medicine Interventional Cardiology
DX: I50.32 Chronic diastolic (congestive) heart failure (principal)
CPT/HCPCS: 36415; 80048; 81003; 83880; 85027; 87086

== ENCOUNTER → 2022-08-20 | Outpatient (CLI) | payer MEDICARE, BC ==
[2022-08-20 16:42] LABS: ALT 29 U/L (10-49); AST 23 U/L (14-35); Albumin 4.5 g/dL (3.8-4.9); Albumin/Globulin Ratio 2.04 (1.60-3.17); Alkaline Phosphatase 81 U/L (41-126); BUN/Creat Ratio 18.11 Ratio (12.00-20.00); Blood Urea Nitrogen 25.9 mg/dL (9.0-27.0); Calcium 9.9 mg/dL (8.7-10.3); Carbon Dioxide 25.6 mmol/L (20.0-27.5); Chloride 104 mmol/L (96-109); Chol/HDL Ratio 3.82 Ratio; Globulin 2.2 g/dL (1.6-3.3); Glucose 175 mg/dL (70-110); LDL Cholesterol,Calculated 86.7 mg/dL (0.0-131.0); Non-African American GFR(CKD) 46.6 (60.0-200.0); Potassium 5.3 mmol/L (3.5-5.5); Sodium 141 mmol/L (135-145); Total Protein 6.7 g/dL (6.2-8.2)
== END | disposition home or self-care (01) ==
LOC: LABWHC1 08:40
PROVIDERS: ATTEND Nurse Practitioner Adult Health
DX: N18.9 Chronic kidney disease, unspecified (principal); I50.32 Chronic diastolic (congestive) heart failure; E78.2 Mixed hyperlipidemia
CPT/HCPCS: 36415; 80053; 80061; 83880

== ENCOUNTER → 2023-08-25 | Outpatient (CLI) | payer MEDICARE, BC ==
--- NOTE | 2023-08-25 17:56 | XR ---
EXAMINATION TYPE: XR lumbar spine with bend/flex DATE OF EXAM: 08/25/2023 4:07 PM CLINICAL INDICATION:Male, 77 years old with history of M47.27 LUMBOSACRAL REGION; COMPARISON: 08/18/2012 TECHNIQUE: XR lumbar spine with bend/flex - Frontal, lateral and coned in L5-S1 lateral views of the spine. FINDINGS: No evidence of any acute osseous pathology. No evidence of loss of vertebral body height i s seen. There is normal alignment of the lumbar vertebral bodies. Mild scattered disc space narrowing . Multilevel marginal osteophyte formation throughout the visualized spine. There is facet joint arth ropathy throughout the spine. Scattered at least mild neural foraminal stenosis. IMPRESSION: 1. No acute fracture. 2. Mild multilevel disc degeneration.
== END | disposition home or self-care (01) ==
LOC: RADXRMAIN 15:41
PROVIDERS: ATTEND Internal Medicine
DX: M51.36 Other intervertebral disc degeneration, lumbar region (principal); M47.27 Other spondylosis with radiculopathy, lumbosacral region
CPT/HCPCS: 72114

== ENCOUNTER → 2024-09-16 | Outpatient (CLI) | payer MEDICARE, BC ==
--- NOTE | 2024-09-16 13:00 | XR ---
EXAMINATION TYPE: XR lumbar spine with bend/flex, 5 views DATE OF EXAM: 09/16/2024 12:22 PM COMPARISON: 08/25/2023 CLINICAL INDICATION: Male, 78 years old with history of M47.27 spondylosis; PHH, pain FINDINGS: 5 lumbar type vertebral bodies. Moderate degenerative disc disease mid to lower lumbar spine. Vertebr al body heights are preserved. Hypertrophic facet arthropathy mid to lower lumbar spine. On neutral, there is trace grade 1 retrolisthesis L2-L3 and L3-L4. With flexion, this appears to correct. There is no situational the retrolisthesis at these levels upo n extension. Atherosclerotic calcifications throughout the abdominal aorta and iliac arteries. IMPRESSION: 1. Degenerative trace grade 1 retrolisthesis L2/L3 and L3-L4 which corrects with flexion. No accentua tion on extension. 2. Moderate degenerative disc disease mid to lower lumbar spine along with hypertrophic facet arthrop athy. 3. No vertebral compression collapse. [facility], , 09/16/2024 12:58 PM
== END | disposition home or self-care (01) ==
LOC: RADXRMAIN 11:48
PROVIDERS: ATTEND Internal Medicine
DX: M51.369 Other intervertebral disc degeneration, lumbar region without mention of lumbar back pain or lower extremity pain (principal); M47.27 Other spondylosis with radiculopathy, lumbosacral region; M43.16 Spondylolisthesis, lumbar region
CPT/HCPCS: 72114